=== PATIENT | female | born 1950 | race Caucasian/White ===

== ENCOUNTER → 2018-09-20 10:22 | Outpatient (CLI) | payer MEDICARE, OTHER, SELFPAY ==
[2017-04-05 17:03] VITALS: BMI 33.7
[2018-09-20 14:16] LABS: Absolute Lymphocyte Count 1.24 X10^3/ul (0.83-4.51); Absolute Neutrophil Count 5.5 X10^3/uL (2.0-7.7); Basophil# 0.03 X10^3/uL; Basophil% 0.4 % (0-1); Eosinophil# 0.25 X10^3/uL; Eosinophils% 3.3 % (0-5); Hematocrit 39.5 % (37-47); Hemoglobin 12.3 g/dl (12.0-15.0); Lymphocyte # 1.24 X10^3/ul (4.0); Lymphocyte % 16.1 % (19-41); Mean Corp Hgb Conc 31.1 g/gl (32-36); Mean Corpuscular Hgb 25.4 pg (27.0-32.0); Mean Corpuscular Volume 81.4 fL (81-99); Mean Platelet Vol. 10.1 fl (6.2-12.0); Monocyte# 0.55 X10^3/uL; Monocyte% 7.2 % (0-10); Neutrophil # 5.48 X10^3/uL (2.7-7.7); Neutrophil % 71.3 % (47-70); Platelet Count 209 K/mm3 (150-450); RBC Distribution Width CV 15.6 % (11.6-14.6); RBC Distribution Width SD 46.1 fl (35.1-43.9); Red Blood Count 4.85 M/mm3 (4.2-5.4); White Blood Count 7.7 K/mm3 (4.4-11.0)
[2018-09-20 14:17] LABS: POSITIVE COUNT NO; POSITIVE DIFFERENTIAL NO; POSITIVE MORPHOLOGY NO
[2018-09-20 14:37] LABS: AST(SGOT) 17 U/L (15-37); Alanine Aminotransfer ALT/SGPT 30 U/L (13-56); Albumin, Serum 3.5 g/dL (3.2-5.0); Alkaline Phosphatase 104 U/L (45-117); Anion Gap 13 (5-15); BUN 13 mg/dL (7-18); BUN/Creat Ratio 13.6 RATIO (10-20); Calcium,Total 8.8 mg/dL (8.5-10.1); Chloride 104 mmol/L (98-107); Cholesterol 162 mg/dL (200); Creatinine, Serum 0.96 mg/dL (0.55-1.02); EST Glomerular Filtration Rate 62 mL/min (>60); Est Glom Filt Rate - Afr Amer 75 mL/min (>60); Globulin 3.6 g/dL (2.2-4.2); Glucose 125 mg/dL (74-106); High Density Lipoprotein 41 mg/dL; Potassium 3.1 mmol/L (3.5-5.1); Protein, Total 7.1 g/dL (6.4-8.2); Sodium Level 140 mmol/L (136-145); Thyroid Stim Hormone (TSH) 1.29 uIU/mL (0.358-3.74); Triglycerides 165 mg/dL; Very Low Density Lipoprotein 33 mg/dL (5-40)
== END ==
PROVIDERS: Family Provider Family Medicine; PCP Family Medicine; Visit Provider Family Medicine
DX: I10 Essential (primary) hypertension (principal); E55.9 Vitamin D deficiency, unspecified; Z86.39 Personal history of other endocrine, nutritional and metabolic disease
CPT/HCPCS: 36415; 80053; 80061; 82306; 84443; 85025

== ENCOUNTER → 2018-10-24 11:53 | Outpatient (CLI) | payer MEDICARE, OTHER, SELFPAY ==
[2017-04-05 17:03] VITALS: BMI 33.7
[2018-10-24 13:18] LABS: Anion Gap 11 (5-15); BUN 16 mg/dL (7-18); BUN/Creat Ratio 17.1 RATIO (10-20); Calcium,Total 8.8 mg/dL (8.5-10.1); Chloride 105 mmol/L (98-107); Creatinine, Serum 0.93 mg/dL (0.55-1.02); EST Glomerular Filtration Rate 64 mL/min (>60); Est Glom Filt Rate - Afr Amer 77 mL/min (>60); Glucose 128 mg/dL (74-106); Potassium 3.7 mmol/L (3.5-5.1); Sodium Level 141 mmol/L (136-145)
== END ==
PROVIDERS: Family Provider Family Medicine; PCP Family Medicine; Referring Provider Family Medicine; Visit Provider Family Medicine
DX: I10 Essential (primary) hypertension (principal); R73.01 Impaired fasting glucose
CPT/HCPCS: 36415; 80048

== ENCOUNTER → 2018-11-27 | Outpatient (CLI) | payer MEDICARE, OTHER, SELFPAY ==
[2017-04-05 17:03] VITALS: BMI 33.7
[2018-11-27 14:04] LABS: EST Glomerular Filtration Rate 66 mL/min (>60); Est Glom Filt Rate - Afr Amer 80 mL/min (>60)
== END | disposition home or self-care (01) ==
LOC: MTLAB 11:52
PROVIDERS: Family Provider Family Medicine; PCP Family Medicine; Referring Provider Specialist; Visit Provider Specialist
DX: M25.531 Pain in right wrist (principal)
CPT/HCPCS: 36415; 82565

== ENCOUNTER → 2019-03-20 | Outpatient (CLI) | payer MEDICARE, OTHER, SELFPAY ==
[2019-03-20 15:32] LABS: Basophil# 0.03 X10^3/uL; Basophil% 0.4 % (0-1); Eosinophils% 2.5 % (0-5); Hematocrit 38.6 % (37-47); Hemoglobin 12.3 g/dL (12.0-15.0); Lymphocyte % 14.7 % (19-41); Mean Corp Hgb Conc 31.9 g/dL (32-36); Mean Corpuscular Hgb 25.8 pg (27.0-32.0); Mean Corpuscular Volume 81.1 fL (81-99); Monocyte# 0.51 X10^3/uL; Monocyte% 6.3 % (0-10); NRBC Flagged by Analyzer 0 % (0-5); Neutrophil # 5.98 X10^3/uL (2.7-7.7); Neutrophil % 73.4 % (47-70); Platelet Count 249 K/mm3 (150-450); RBC Distribution Width CV 15.4 % (11.6-14.6); RBC Distribution Width SD 44.9 fl (35.1-43.9); Red Blood Count 4.76 M/mm3 (4.2-5.4); White Blood Count 8.1 K/mm3 (4.4-11.0)
[2019-03-20 16:08] LABS: Erythrocyte Sedimentation Rate 31 mm/hr (0-30)
[2019-03-20 16:24] LABS: Rheumatoid Factor < 10.0 IU/mL (<15)
[2019-03-22 15:56] LABS: ANTINUCLEAR ANTIBODIES DIRECT Negative (Negative)
[2019-03-23 11:25] LABS: V-Zoster IgG (Immunity) 1674 index (Immune >165); V-Zoster Virus Acute IgM < 0.91 index (0.00-0.90)
== END | disposition home or self-care (01) ==
PROVIDERS: Family Provider Family Medicine; PCP Family Medicine; Referring Provider Family Medicine; Visit Provider Family Medicine
DX: R21 Rash and other nonspecific skin eruption (principal)
CPT/HCPCS: 85025; 85652; 86038; 86140; 86431; 86787

== ENCOUNTER → 2019-05-01 13:16 | Outpatient (CLI) | payer MEDICARE, OTHER, SELFPAY ==
--- NOTE | 2019-05-01 13:20 | ECHOCS_ITS ---
Reason For Study: Lupus Procedure This was a 2D Doppler, Color Flow transthoracic echocardiogram. The study was technically difficult. Contrast injection was performed. Exam performed in department. Left Ventricle Normal LV size. Moderate concentric left ventricular hypertrophy. Left ventricular systolic function is normal. The estimated ejection fraction is 65 %. Stage 1 diastolic dysfunction. No regional wall motion abnormalities noted. Right Ventricle Normal RV size. Normal systolic function. Atria The left atrium is not well visualized. The right atrium is not well visualized. Mitral Valve Mitral valve not well visualized. Tricuspid Valve The tricuspid valve is not well visualized. Aortic Valve The aortic valve is not well visualized. Pulmonic Valve The pulmonic valve is not well visualized. Great Vessels Normal aortic root. Pericardium/Pleural Epicardial fat. Medication 22 gauge I.V. with prn adaptor inserted into right arm. Diluted definity 4ml given slow IV push to enhance endocardial definition. MMode/2D Measurements & Calculations LVIDd: 4.3 cm IVSd: 1.3 cm LVIDs: 2.4 cm LVPWd: 1.4 cm LVAd ap4: 18.3 cm2 FS: 43.8 % EDV(MOD-sp4): 37.9 ml EDV(sp4-el): 39.9 ml LVAs ap4: 9.1 cm2 ESV(MOD-sp4): 12.6 ml ESV(sp4-el): 13.3 ml EF(MOD-sp4): 66.8 % EF(sp4-el): 66.5 % SV(MOD-sp4): 25.3 ml SV(sp4-el): 26.5 ml Time Measurements MV dec time: 0.18 sec Doppler Measurements & Calculations MV E max vin: 57.1 cm/sec Lat Peak E' Vin: 13.2 cm/sec Med Peak E' Vin: 14.1 cm/sec MV A max vin: 83.3 cm/sec E/E' lat: 4.3 E/E' med: 4.0 MV E/A: 0.69 MV V2 max: 96.3 cm/sec MV P1/2t max vin: 69.3 cm/sec Ao V2 max: 183.6 cm/sec MV max P.7 mmHg MV P1/2t: 82.4 msec Ao max P.5 mmHg MV V2 mean: 52.4 cm/sec MV mean P.3 mmHg MV dec slope: 246.5 cm/sec2 MV V2 VTI: 21.1 cm MVA(P1/2t): 2.7 cm2 LV V1 max: 116.9 cm/sec PA V2 max: 92.0 cm/sec LV V1 max P.5 mmHg Interpretation Summary Normal LV size. Moderate concentric left ventricular hypertrophy. Left ventricular systolic function is normal. The estimated ejection fraction is 65 %. Stage 1 diastolic dysfunction. Contrast injection was performed. Ordering Physician: Ruel Peoples Referring Physician: Ruel Peoples Performed By: Neto Rutherford RCS
== END ==
PROVIDERS: Family Provider Family Medicine; PCP Family Medicine; Referring Provider Family Medicine; Visit Provider Family Medicine
DX: M32.9 Systemic lupus erythematosus, unspecified (principal)
CPT/HCPCS: 93306; Q9957; A4216; C8929

== ENCOUNTER → 2019-05-29 11:19 | Outpatient (CLI) | payer MEDICARE, OTHER, SELFPAY ==
[2017-04-05 17:03] VITALS: BMI 33.7
--- NOTE | 2019-05-29 11:22 | RAD_ITS ---
STUDY: X-RAY - PELVIS AND LEFT HIP REASON FOR EXAM: Left hip/groin pain. TECHNIQUE: 2 views of the pelvis and hip. COMPARISON: None. FINDINGS: Normal visualized soft tissue structures. Normal bilateral iliac wings, sacroiliac joints and visualized sacrum. Normal bilateral superior and inferior pubic rami. There are mild degenerative changes of the pubic symphysis. Normal bilateral ischial tuberosities. Normal visualized femoral head. Normal acetabulum. There is mild joint space narrowing of the superior medial left hip joint. RAD/HIP, UNI W/ Pelvis 2-3 Views IMPRESSION: Mild arthrosis of the left hip. Electronically Signed: Teofilo Watts MD at 16:00 EDT Tel , Service support ,
== END ==
PROVIDERS: Family Provider Family Medicine; PCP Family Medicine; Referring Provider Family Medicine; Visit Provider Family Medicine
DX: M25.552 Pain in left hip (principal); R35.0 Frequency of micturition
CPT/HCPCS: 73502; 87086; 87088

== ENCOUNTER → 2019-05-29 14:05 | Outpatient (CLI) | payer MEDICARE, OTHER, SELFPAY | PROVIDERS: Family Provider Family Medicine; PCP Family Medicine; Referring Provider Family Medicine; Visit Provider Family Medicine | DX: R35.0 Frequency of micturition (principal) | CPT/HCPCS: 87086; 87088 ==

== ENCOUNTER → 2019-06-25 08:08 | Outpatient (CLI) | payer OTHER, MEDICARE, SELFPAY ==
--- NOTE | 2019-06-25 08:00 | RAD_ITS ---
PROCEDURE: Fluoroscopic guided left shoulder aspiration. DATE: June 25, 2019. INDICATION: Female, 69 years old. Left shoulder replacement. Continued pain. PHYSICIAN: Hung Graham M.D. ACCESS SITE: Left shoulder. NEEDLE: 22-gauge spinal needle. FLUOROSCOPY TIME (if supplied): (0:35) minutes/seconds FINDINGS: The risks, benefits, and alternatives to the procedure were explained to the patient. The specific risks of bleeding, infection, and neurovascular injury were detailed and accepted. Witnessed informed consent was obtained. A 22-gauge spinal needle was positioned under radiographic fluoroscopic localization. Approximately 2 cc of Omnipaque Isovue 300 instilled for localization purposes. There was no aspiration of fluid from the shoulder joint. The patient tolerated the procedure well without any immediate complications. RAD/Inj/Asp Jameson Jt Should/Hip/Knee IMPRESSION: 1. Successful fluoroscopic guided left shoulder aspiration without any fluid. Electronically Signed: Hung Graham, at 10:08 EST , Service support ,
== END ==
PROVIDERS: Family Provider Family Medicine; PCP Family Medicine; Referring Provider Specialist; Visit Provider Specialist
DX: M19.012 Primary osteoarthritis, left shoulder (principal); M25.512 Pain in left shoulder; Z96.612 Presence of left artificial shoulder joint
CPT/HCPCS: 20610; 77002; Q9967

== ENCOUNTER → 2019-09-24 09:05 | Outpatient (CLI) | payer MEDICARE, OTHER, SELFPAY ==
[2017-04-05 17:03] VITALS: BMI 33.7
[2019-09-24 12:01] LABS: Hepatitis B Surface Antigen Non-Reactive (Nonreactive); Hepatitis C Antibody Non-Reactive (Nonreactive)
[2019-09-25 12:03] LABS: AST(SGOT) 17 U/L (15-37); Alanine Aminotransfer ALT/SGPT 33 U/L (13-56); Albumin, Serum 3.4 g/dL (3.2-5.0); Alkaline Phosphatase 93 U/L (45-117); Anion Gap 9 (5-15); BUN 14 mg/dL (7-18); BUN/Creat Ratio 14.1 RATIO (10-20); Calcium,Total 8.9 mg/dL (8.5-10.1); Chloride 107 mmol/L (98-107); Cholesterol 183 mg/dL (200); EST Glomerular Filtration Rate 59 mL/min (>60); Est Glom Filt Rate - Afr Amer 71 mL/min (>60); Globulin 3.5 g/dL (2.2-4.2); Glucose 144 mg/dL (74-106); High Density Lipoprotein 42 mg/dL; Potassium 3.5 mmol/L (3.5-5.1); Protein, Total 6.9 g/dL (6.4-8.2); Sodium Level 140 mmol/L (136-145); Triglycerides 165 mg/dL; Very Low Density Lipoprotein 33 mg/dL (5-40)
[2019-09-25 12:21] LABS: Vitamin D,25 Hydroxy 52.2 ng/mL (29.95-100.01)
[2019-09-26 20:07] LABS: QNTFERON TB Mitogen Value > 10.00 IU/mL (.); QNTFERON TB Nil Value 0.03 IU/mL (.); QNTFERON TB1+ Ag Value 0.03 IU/mL (.); QNTFERON TB2+ Ag Value 0.02 IU/mL (.)
[2019-09-26 20:49] LABS: Hepatitis B Core AB IgM Negative (Negative); QNTIFERON TB Positive Criteria Negative (Negative)
== END ==
PROVIDERS: Family Provider Family Medicine; PCP Family Medicine; Referring Provider Family Medicine
DX: M06.9 Rheumatoid arthritis, unspecified (principal); I10 Essential (primary) hypertension; E55.9 Vitamin D deficiency, unspecified
CPT/HCPCS: 36415; 80053; 80061; 82306; 86480; 86705; 86803; 87340

== ENCOUNTER 2020-02-20 11:32 | Outpatient (RCR) | payer MEDICARE, OTHER, SELFPAY | END 2020-03-21 23:59 | LOC: DC 11:32 | PROVIDERS: PCP Family Medicine; Visit Provider Family Medicine | DX: Z71.3 Dietary counseling and surveillance (principal); E11.9 Type 2 diabetes mellitus without complications | CPT/HCPCS: G0108 ==

== ENCOUNTER → 2020-03-26 10:24 | Outpatient (CLI) | payer MEDICARE, OTHER, SELFPAY ==
[2017-04-05 17:03] VITALS: BMI 33.7
[2020-03-26 12:00] LABS: Erythrocyte Sedimentation Rate 26 mm/hr (0-30)
[2020-03-26 12:10] LABS: Hematocrit 43.3 % (37-47); Hemoglobin 13.3 g/dL (12.0-15.0); Mean Corp Hgb Conc 30.7 g/dL (32-36); Mean Corpuscular Hgb 25.9 pg (27.0-32.0); Mean Corpuscular Volume 84.4 fL (81-99); Mean Platelet Vol. 9.9 fl (6.2-12.0); Platelet Count 221 K/mm3 (150-450); RBC Distribution Width CV 16.8 % (11.6-14.6); RBC Distribution Width SD 50.4 fl (35.1-43.9); Red Blood Count 5.13 M/mm3 (4.2-5.4); White Blood Count 6.3 K/mm3 (4.4-11.0)
[2020-03-26 12:12] LABS: Vitamin D,25 Hydroxy 54.1 ng/mL
[2020-03-26 12:33] LABS: AST(SGOT) 17 U/L (15-37); Alanine Aminotransfer ALT/SGPT 37 U/L (13-56); Albumin, Serum 3.5 g/dL (3.2-5.0); Alkaline Phosphatase 85 U/L (45-117); Anion Gap 7 (5-15); BUN 17 mg/dL (7-18); BUN/Creat Ratio 17.5 RATIO (10-20); CRP 5.43 mg/L (0.0-3.0); Calcium,Total 8.9 mg/dL (8.5-10.1); Chloride 107 mmol/L (98-107); Creatinine, Serum 0.97 mg/dL (0.55-1.02); EST Glomerular Filtration Rate 60 mL/min (>60); Est Glom Filt Rate - Afr Amer 73 mL/min (>60); Globulin 3.4 g/dL (2.2-4.2); Glucose 135 mg/dL (74-106); Potassium 3.6 mmol/L (3.5-5.1); Protein, Total 6.9 g/dL (6.4-8.2); Sodium Level 138 mmol/L (136-145)
[2020-03-26 12:38] LABS: Thyroid Stim Hormone (TSH) 1.62 uIU/mL (0.358-3.74)
== END ==
PROVIDERS: PCP Family Medicine; Referring Provider Family Medicine; Visit Provider Family Medicine
DX: M06.9 Rheumatoid arthritis, unspecified (principal); E55.9 Vitamin D deficiency, unspecified; F32.9 Major depressive disorder, single episode, unspecified; F41.9 Anxiety disorder, unspecified; Z71.3 Dietary counseling and surveillance; E11.9 Type 2 diabetes mellitus without complications
CPT/HCPCS: 36415; 80053; 82306; 84443; 85027; 85652; 86140; G0108

== ENCOUNTER 2020-03-26 10:57 | Outpatient (RCR) | payer MEDICARE, OTHER, SELFPAY ==
[2017-04-05 17:03] VITALS: BMI 33.7
== END 2020-04-21 23:59 ==
LOC: DC 10:57
PROVIDERS: PCP Family Medicine; Visit Provider Family Medicine
DX: Z71.3 Dietary counseling and surveillance (principal); E11.9 Type 2 diabetes mellitus without complications
CPT/HCPCS: G0108

== ENCOUNTER 2020-05-13 16:35 | Outpatient (RCR) | payer MEDICARE, OTHER, SELFPAY ==
[2017-04-05 17:03] VITALS: BMI 33.7
== END 2020-05-21 23:59 ==
LOC: DC 16:35
PROVIDERS: PCP Family Medicine; Visit Provider Family Medicine
DX: Z71.3 Dietary counseling and surveillance (principal); E11.9 Type 2 diabetes mellitus without complications
CPT/HCPCS: 97802

== ENCOUNTER → 2020-05-22 17:02 | Outpatient (CLI) | payer MEDICARE, OTHER, SELFPAY ==
[2017-04-05 17:03] VITALS: BMI 33.7
--- NOTE | 2020-05-22 17:05 | RAD_ITS ---
STUDY: X-RAY LEFT FOOT, 3 TOE REASON FOR EXAM: Female, 69 years old. 2nd-4th left toe pain/bruising, hit them against a table leg yesterday TECHNIQUE: 3 view(s) of the toe were obtained. COMPARISON: None. FINDINGS: Normal visualized metatarsus. Normal metatarsophalangeal (M.T.P) joint. Normal interphalangeal joints. Normal phalanges and interphalangeal joints. The soft tissue structures are unremarkable. RAD/Toe(s) Min 2 Views IMPRESSION: Normal x-ray of the toe. Electronically Signed: Omar Nicholson MD at 9:18 EDT Tel , Service support ,
== END ==
PROVIDERS: PCP Family Medicine; Referring Provider Family Medicine; Visit Provider Family Medicine
DX: M79.675 Pain in left toe(s) (principal)
CPT/HCPCS: 73660

== ENCOUNTER 2020-06-19 13:55 | Outpatient (RCR) | payer MEDICARE, OTHER, SELFPAY ==
[2017-04-05 17:03] VITALS: BMI 33.7
== END 2020-06-21 23:59 ==
LOC: DC 13:55
PROVIDERS: PCP Family Medicine; Visit Provider Family Medicine
DX: Z71.3 Dietary counseling and surveillance (principal); E11.9 Type 2 diabetes mellitus without complications

== ENCOUNTER → 2020-07-07 11:50 | Outpatient (CLI) | payer MEDICARE, OTHER, SELFPAY ==
[2017-04-05 17:03] VITALS: BMI 33.7
== END ==
PROVIDERS: PCP Family Medicine; Visit Provider Family Medicine
DX: J06.9 Acute upper respiratory infection, unspecified (principal)
CPT/HCPCS: 87635; U0003

== ENCOUNTER 2020-07-22 14:57 | Outpatient (RCR) | payer MEDICARE, OTHER, SELFPAY ==
[2017-04-05 17:03] VITALS: BMI 33.7
== END 2020-07-22 23:59 | disposition home or self-care (01) ==
LOC: DC 14:57
PROVIDERS: PCP Family Medicine; Visit Provider Family Medicine
DX: Z71.3 Dietary counseling and surveillance (principal); E11.9 Type 2 diabetes mellitus without complications
CPT/HCPCS: 97803

== ENCOUNTER → 2020-08-11 12:42 | Outpatient (CLI) | payer MEDICARE, OTHER, SELFPAY ==
--- NOTE | 2020-08-11 12:46 | US_ITS ---
HISTORY: nodules COMPARISON: 05/05/2016, 10/11/2013 TECHNIQUE: Grayscale and color Doppler sonography of the thyroid gland. FINDINGS: RIGHT LOBE: 4.4 x 1.9 x 1.7 cm LEFT LOBE: 3.4 x 2.1 x 1.8 cm ISTHMUS: 3 mm Multiple bilateral thyroid cysts, largest on the right measuring 7 x 5 x 5 mm. Solid, heterogeneous left thyroid lobe nodule, predominantly hypoechoic to thyroid with smooth margins, wider than tall without calcifications measuring 1.1 x 0.9 x 0.9 cm, previously 1.0 x 0.8 x 1.0 cm on 10/11/2013 with measurements near the same level and orientation. US/Thyroid IMPRESSION: Small bilateral thyroid cysts. Left thyroid lobe nodule less than 1.5 cm shows stability for greater than 5 years. No further follow-up warranted per current guidelines. at 0705 Reported and signed by: Carol Philip MD Electronically Signed: Carol Philip MD at 7:05 EST Tel , Service support ,
== END ==
PROVIDERS: PCP Family Medicine; Referring Provider Family Medicine; Visit Provider Family Medicine
DX: E04.1 Nontoxic single thyroid nodule (principal)
CPT/HCPCS: 76536

== ENCOUNTER → 2020-08-26 14:40 | Outpatient (CLI) | payer OTHER, SELFPAY ==
[2017-04-05 17:03] VITALS: BMI 33.7
[2020-08-26 18:04] LABS: Hematocrit 42.1 % (37-47); Hemoglobin 13.2 g/dL (12.0-15.0); Mean Corp Hgb Conc 31.4 g/dL (32-36); Mean Corpuscular Hgb 26.3 pg (27.0-32.0); Mean Platelet Vol. 11.4 fl (6.2-12.0); Platelet Count 219 K/mm3 (150-450); RBC Distribution Width CV 14.9 % (11.6-14.6); RBC Distribution Width SD 45.4 fl (35.1-43.9); Red Blood Count 5.01 M/mm3 (4.2-5.4); White Blood Count 8.1 K/mm3 (4.4-11.0)
[2020-08-26 18:05] LABS: Erythrocyte Sedimentation Rate 28 mm/hr (0-30)
[2020-08-26 18:34] LABS: AST(SGOT) 24 U/L (15-37); Alanine Aminotransfer ALT/SGPT 35 U/L (13-56); Albumin, Serum 3.4 g/dL (3.2-5.0); Alkaline Phosphatase 95 U/L (45-117); Anion Gap 7 (5-15); BUN 17 mg/dL (7-18); BUN/Creat Ratio 17.2 RATIO (10-20); Calcium,Total 8.5 mg/dL (8.5-10.1); Chloride 107 mmol/L (98-107); Creatinine, Serum 0.99 mg/dL (0.55-1.02); EST Glomerular Filtration Rate 59 mL/min (>60); Est Glom Filt Rate - Afr Amer 72 mL/min (>60); Globulin 3.5 g/dL (2.2-4.2); Glucose 168 mg/dL (74-106); Potassium 3.1 mmol/L (3.5-5.1); Protein, Total 6.9 g/dL (6.4-8.2); Sodium Level 141 mmol/L (136-145)
== END ==
PROVIDERS: PCP Family Medicine; Referring Provider Family Medicine
DX: M06.9 Rheumatoid arthritis, unspecified (principal)
CPT/HCPCS: 36415; 80053; 85027; 85652; 86140

== ENCOUNTER → 2020-09-08 12:33 | Outpatient (CLI) | payer MEDICARE, SELFPAY ==
[2017-04-05 17:03] VITALS: BMI 33.7
[2020-09-08 15:48] LABS: Absolute Lymphocyte Count 1.49 X10^3/uL (0.83-4.51); Basophil# 0.07 X10^3/uL; Basophil% 0.7 % (0-1); Eosinophils% 1.9 % (0-5); Hematocrit 44.1 % (37-47); Hemoglobin 13.5 g/dL (12.0-15.0); Lymphocyte # 1.49 X10^3/ul (4.0); Mean Corp Hgb Conc 30.6 g/dL (32-36); Mean Corpuscular Hgb 25.8 pg (27.0-32.0); Mean Corpuscular Volume 84.2 fL (81-99); Mean Platelet Vol. 10.8 fl (6.2-12.0); Monocyte% 6.6 % (0-10); NRBC Flagged by Analyzer 0 % (0-5); Neutrophil # 8.04 X10^3/uL (2.7-7.7); Neutrophil % 75.8 % (47-70); Platelet Count 235 K/mm3 (150-450); RBC Distribution Width SD 45.2 fl (35.1-43.9); Red Blood Count 5.24 M/mm3 (4.2-5.4); White Blood Count 10.6 K/mm3 (4.4-11.0)
[2020-09-08 15:58] LABS: International Normalized Ratio 1.1; Prothrombin Time (Protime)PT. 13.3 SECONDS (11.7-14.9)
[2020-09-08 15:59] LABS: Partial Thromboplast Time 22.9 Seconds (24.1-36.2)
[2020-09-08 16:18] LABS: Anion Gap 10 (5-15); BUN 17 mg/dL (7-18); BUN/Creat Ratio 17.2 RATIO (10-20); Chloride 104 mmol/L (98-107); Creatinine, Serum 0.99 mg/dL (0.55-1.02); EST Glomerular Filtration Rate 59 mL/min (>60); Est Glom Filt Rate - Afr Amer 72 mL/min (>60); Glucose 152 mg/dL (74-106); Potassium 3.4 mmol/L (3.5-5.1); Sodium Level 136 mmol/L (136-145)
== END ==
PROVIDERS: PCP Family Medicine; Referring Provider Family Medicine; Visit Provider Family Medicine
DX: Z01.818 Encounter for other preprocedural examination (principal)
CPT/HCPCS: 36415; 80048; 85025; 85610; 85730; 87635; U0003

== ENCOUNTER → 2020-09-29 10:31 | Outpatient (CLI) | payer MEDICARE, OTHER, SELFPAY ==
[2017-04-05 17:03] VITALS: BMI 33.7
== END ==
PROVIDERS: PCP Family Medicine; Visit Provider Family Medicine
DX: Z01.818 Encounter for other preprocedural examination (principal); Z20.822 Contact with and (suspected) exposure to COVID-19
CPT/HCPCS: 87635; U0005; U0003

== ENCOUNTER 2020-10-30 13:10 | Outpatient (RCR) | payer MEDICARE, OTHER, SELFPAY ==
[2017-04-05 17:03] VITALS: BMI 33.7
[2020-10-30] MEDS: COVID-19 VACC, MRNA(PFIZER)/PF 30 MCG/0.3 ML SYRINGE IM (11:27)
[2020-11-20] MEDS: COVID-19 VACC, MRNA(PFIZER)/PF 30 MCG/0.3 ML SYRINGE IM (10:46)
== END 2021-01-27 23:59 ==
LOC: IMMUN 13:10
PROVIDERS: PCP Family Medicine; Referring Provider Family Medicine; Visit Provider Family Medicine
DX: Z23 Encounter for immunization (principal)
CPT/HCPCS: 0001A; 0002A; 91300

== ENCOUNTER → 2020-11-20 15:13 | Outpatient (CLI) | payer MEDICARE, OTHER, SELFPAY ==
[2017-04-05 17:03] VITALS: BMI 33.7
[2020-11-20 17:36] LABS: Absolute Lymphocyte Count 1.52 X10^3/uL (0.83-4.51); Absolute Neutrophil Count 8.8 X10^3/uL (2.0-7.7); Basophil# 0.08 X10^3/uL; Basophil% 0.7 % (0-1); Eosinophil# 0.33 X10^3/uL; Eosinophils% 2.8 % (0-5); Hematocrit 44.4 % (37-47); Hemoglobin 13.6 g/dL (12.0-15.0); Lymphocyte # 1.52 X10^3/ul (4.0); Lymphocyte % 12.8 % (19-41); Mean Corp Hgb Conc 30.6 g/dL (32-36); Mean Corpuscular Hgb 25.9 pg (27.0-32.0); Mean Corpuscular Volume 84.4 fL (81-99); Mean Platelet Vol. 10.3 fl (6.2-12.0); Monocyte# 0.91 X10^3/uL; Monocyte% 7.7 % (0-10); NRBC Flagged by Analyzer 0 % (0-5); Neutrophil # 8.83 X10^3/uL (2.7-7.7); Neutrophil % 74.6 % (47-70); Platelet Count 275 K/mm3 (150-450); RBC Distribution Width SD 49.2 fl (35.1-43.9); Red Blood Count 5.26 M/mm3 (4.2-5.4); White Blood Count 11.8 K/mm3 (4.4-11.0)
[2020-11-20 18:00] LABS: Erythrocyte Sedimentation Rate 46 mm/hr (0-30)
[2020-11-20 20:29] LABS: AST(SGOT) 21 U/L (15-37); Alanine Aminotransfer ALT/SGPT 31 U/L (13-56); Albumin, Serum 3.6 g/dL (3.2-5.0); Alkaline Phosphatase 98 U/L (45-117); Anion Gap 6 (5-15); BUN 15 mg/dL (7-18); BUN/Creat Ratio 16.8 RATIO (10-20); Calcium,Total 8.8 mg/dL (8.5-10.1); Chloride 108 mmol/L (98-107); Creatinine, Serum 0.89 mg/dL (0.55-1.02); EST Glomerular Filtration Rate 67 mL/min (>60); Est Glom Filt Rate - Afr Amer 81 mL/min (>60); Globulin 3.7 g/dL (2.2-4.2); Glucose 100 mg/dL (74-106); Potassium 3.6 mmol/L (3.5-5.1); Protein, Total 7.3 g/dL (6.4-8.2); Sodium Level 140 mmol/L (136-145)
== END ==
PROVIDERS: PCP Family Medicine; Referring Provider Family Medicine
DX: M06.9 Rheumatoid arthritis, unspecified (principal)
CPT/HCPCS: 36415; 80053; 85025; 85652; 86140

== ENCOUNTER → 2020-12-16 16:04 | Outpatient (CLI) | payer MEDICARE, OTHER, SELFPAY ==
[2017-04-05 17:03] VITALS: BMI 33.7
[2020-12-16 18:12] LABS: Erythrocyte Sedimentation Rate 26 mm/hr (0-30)
[2020-12-16 18:26] LABS: Anion Gap 5 (5-15); BUN 12 mg/dL (7-18); BUN/Creat Ratio 12.8 RATIO (10-20); Calcium,Total 8.9 mg/dL (8.5-10.1); Chloride 105 mmol/L (98-107); Creatinine, Serum 0.94 mg/dL (0.55-1.02); EST Glomerular Filtration Rate 63 mL/min (>60); Est Glom Filt Rate - Afr Amer 76 mL/min (>60); Glucose 134 mg/dL (74-106); Potassium 3.2 mmol/L (3.5-5.1); Sodium Level 137 mmol/L (136-145); Thyroid Stim Hormone (TSH) 0.85 uIU/mL (0.358-3.74)
== END ==
PROVIDERS: PCP Family Medicine; Referring Provider Family Medicine; Visit Provider Family Medicine
DX: E11.65 Type 2 diabetes mellitus with hyperglycemia (principal); M35.00 Sjogren syndrome, unspecified; R42 Dizziness and giddiness
CPT/HCPCS: 36415; 80048; 84443; 85652; 86140

== ENCOUNTER → 2021-01-01 15:07 | Outpatient (CLI) | payer MEDICARE, OTHER, SELFPAY ==
[2021-01-01 18:13] LABS: Anion Gap 7 (5-15); BUN 17 mg/dL (7-18); Calcium,Total 9.4 mg/dL (8.5-10.1); Chloride 105 mmol/L (98-107); Creatinine, Serum 0.89 mg/dL (0.55-1.02); EST Glomerular Filtration Rate 67 mL/min (>60); Est Glom Filt Rate - Afr Amer 80 mL/min (>60); Glucose 174 mg/dL (74-106); Potassium 3.6 mmol/L (3.5-5.1); Sodium Level 139 mmol/L (136-145)
== END ==
PROVIDERS: PCP Family Medicine; Referring Provider Family Medicine; Visit Provider Family Medicine
DX: R42 Dizziness and giddiness (principal)
CPT/HCPCS: 36415; 80048

== ENCOUNTER → 2021-02-02 10:55 | Outpatient (CLI) | payer MEDICARE, OTHER, SELFPAY ==
[2017-04-05 17:03] VITALS: BMI 33.7
--- NOTE | 2021-02-02 11:00 | RAD_ITS ---
STUDY: X-RAY - CERVICAL SPINE REASON FOR EXAM: Female, 70 years old. paresthesia TECHNIQUE: 5 view(s) of the cervical spine were obtained. COMPARISON: None FINDINGS: Normal anterior atlantoaxial articulation. Normal odontoid process. Normal cervical lordosis. There is multi-level endplate spondylosis. Loss of disc height at C5-C6 and C6-C7. Bilateral facet arthropathy in the lower cervical levels with only slight foraminal narrowing at C5-C6 and C6-C7. There are atherosclerotic vascular calcifications of the carotid arteries. RAD/Cerv Spine 4 or 5 Views IMPRESSION: Degenerative disc disease and facet arthropathy, as above. Carotid atherosclerosis. Electronically Signed: Geraldo Jerome MD (Brooks) at 7:53 EDT , Service support ,
--- NOTE | 2021-02-02 11:00 | RAD_ITS ---
STUDY: X-RAY - PELVIS AND RIGHT HIP REASON FOR EXAM: Female, 70 years old. HIP PAIN TECHNIQUE: 3 views of the pelvis and hip. COMPARISON: None. FINDINGS: There is a non-specific bowel gas pattern. Normal visualized soft tissue structures. Normal bilateral iliac wings, sacroiliac joints and visualized sacrum. Normal bilateral superior and inferior pubic rami. Normal pubic symphysis. Normal bilateral ischial tuberosities. Normal visualized femoral head. Normal acetabulum. Normal hip joint. RAD/HIP, UNI W/ Pelvis 2-3 Views IMPRESSION: Normal x-ray examination of the pelvis and hip. Electronically Signed: Geraldo Jerome MD (Brooks) at 7:49 EDT , Service support ,
--- NOTE | 2021-02-02 11:00 | RAD_ITS ---
STUDY: X-RAY - LUMBAR SPINE REASON FOR EXAM: Female, 70 years old. HIP PAIN TECHNIQUE: 5 view(s) of the lumbar spine were obtained. COMPARISON: None FINDINGS: Normal lumbar lordosis. Slight levoscoliosis There is a normal alignment of the vertebrae. There is multilevel endplate spondylosis of the lumbar vertebrae. There is multi-level degenerative disc disease with multi-level disc space narrowing, most severe at L2-L3. Multilevel facet arthropathy particularly at L3-L4, L4-L5 and L5-S1. There is no demonstrated spondylolysis of the pars interarticulares. No compression fracture. There is atherosclerotic calcification of the abdominal aorta without a demonstrated aneurysm. RAD/L/S Spine Min 4 Views IMPRESSION: 1. Degenerative disc disease and facet arthropathy. Electronically Signed: Geraldo Jerome MD ([place]) at 7:50 EDT , Service support ,
== END ==
PROVIDERS: PCP Family Medicine; Referring Provider Family Medicine; Visit Provider Family Medicine
DX: M25.551 Pain in right hip (principal); R20.2 Paresthesia of skin
CPT/HCPCS: 72050; 72110; 73502

== ENCOUNTER → 2021-02-03 12:55 | Outpatient (CLI) | payer MEDICARE, OTHER, SELFPAY ==
[2017-04-05 17:03] VITALS: BMI 33.7
--- NOTE | 2021-02-03 12:57 | ART_ITS ---
Reason For Study: Pain in left foot Procedure A bilateral lower extremity continuous wave Doppler with analog waveform analysis,segmental pressures,and ankle brachial indexes without exercise. Left Segmental Pressures Left brachial= 141mmHg. Left posterior tibial artery = 142mmHg. Left dorsalis pedis artery = 145mmHg. Left digit = 82 mmHg. The left dorsalis pedis waveforms are triphasic. The left posterior tibial artery waveforms are triphasic. Right Segmental Pressures Right brachial= 137mmHg. Right posterior tibial artery = 151mmHg. Right dorsalis pedis artery = 142mmHg. Right digit = 74 mmHg. The right dorsalis pedis waveforms are triphasic. The right posterior tibial artery waveforms are triphasic. Indices The right ankle brachial index by the dorsalis pedis is 1.01. The right ankle brachial index by the posterior tibial artery is 1.07. The right digital-brachial index is 0.52. The left ankle brachial index by the dorsalis pedis is 1.03. The left ankle brachial index by the posterior tibial artery is 1.01. The left digital-brachial index is 0.58. VL/Lower Ext Art Exam w/o Exercis Interpretation Summary Triphasic Doppler waveforms are noted at ankle level bilaterally. Pulse-volume recordings appear satisfactory at all levels bilaterally, including low-thigh, calf, ankle, and d igital levels. Resting ankle-brachial indices are normal bilaterally. Digital-brachial indices are mildly diminished bilaterally. Arterial flow appears normal at ankle level bilaterally. There is evidence of m ild, distal, small- vessel arterial occlusive disease at digital level bilaterally. Ordering Physician: Miguel Garcia Referring Physician: Perry Peoples MD Performed By: Mariama Daugherty RVT
== END ==
PROVIDERS: PCP Family Medicine; Referring Provider Podiatrist Foot & Ankle Surgery; Visit Provider Podiatrist Foot & Ankle Surgery
DX: Z01.818 Encounter for other preprocedural examination (principal); M79.672 Pain in left foot; I73.9 Peripheral vascular disease, unspecified
CPT/HCPCS: 93923

== ENCOUNTER → 2021-02-13 09:54 | Outpatient (CLI) | payer MEDICARE, OTHER, SELFPAY ==
[2017-04-05 17:03] VITALS: BMI 33.7
[2021-02-13 12:30] LABS: Erythrocyte Sedimentation Rate 28 mm/hr (0-30)
[2021-02-13 12:33] LABS: Hematocrit 43.5 % (37-47); Hemoglobin 13.6 g/dL (12.0-15.0); Mean Corp Hgb Conc 31.3 g/dL (32-36); Mean Platelet Vol. 10.6 fl (6.2-12.0); Platelet Count 225 K/mm3 (150-450); RBC Distribution Width CV 15.5 % (11.6-14.6); RBC Distribution Width SD 46.7 fl (35.1-43.9); Red Blood Count 5.24 M/mm3 (4.2-5.4); White Blood Count 7.2 K/mm3 (4.4-11.0)
[2021-02-13 12:56] LABS: AST(SGOT) 29 U/L (15-37); Alanine Aminotransfer ALT/SGPT 38 U/L (13-56); Albumin, Serum 3.6 g/dL (3.2-5.0); Alkaline Phosphatase 90 U/L (45-117); Anion Gap 10 (5-15); BUN 17 mg/dL (7-18); BUN/Creat Ratio 17.7 RATIO (10-20); Calcium,Total 8.6 mg/dL (8.5-10.1); Chloride 106 mmol/L (98-107); Creatinine, Serum 0.96 mg/dL (0.55-1.02); EST Glomerular Filtration Rate 61 mL/min (>60); Est Glom Filt Rate - Afr Amer 74 mL/min (>60); Globulin 3.6 g/dL (2.2-4.2); Glucose 166 mg/dL (74-106); Potassium 3.7 mmol/L (3.5-5.1); Protein, Total 7.2 g/dL (6.4-8.2); Sodium Level 138 mmol/L (136-145)
== END ==
PROVIDERS: PCP Family Medicine; Referring Provider Family Medicine
DX: M06.9 Rheumatoid arthritis, unspecified (principal)
CPT/HCPCS: 36415; 80053; 85027; 85652; 86140

== ENCOUNTER → 2021-03-10 13:48 | Outpatient (CLI) | payer MEDICARE, OTHER, SELFPAY ==
[2021-03-10 15:30] LABS: Hematocrit 44.7 % (37-47); Hemoglobin 13.5 g/dL (12.0-15.0); Mean Corp Hgb Conc 30.2 g/dL (32-36); Mean Corpuscular Hgb 25.3 pg (27.0-32.0); Mean Corpuscular Volume 83.7 fL (81-99); Mean Platelet Vol. 9.6 fl (6.2-12.0); Platelet Count 321 K/mm3 (150-450); RBC Distribution Width CV 15.6 % (11.6-14.6); RBC Distribution Width SD 46.3 fl (35.1-43.9); Red Blood Count 5.34 M/mm3 (4.2-5.4); White Blood Count 7.5 K/mm3 (4.4-11.0)
[2021-03-10 15:43] LABS: International Normalized Ratio 1.2; Partial Thromboplast Time 26.9 Seconds (24.1-36.2); Prothrombin Time (Protime)PT. 14.1 SECONDS (11.7-14.9)
[2021-03-10 15:58] LABS: Erythrocyte Sedimentation Rate 24 mm/hr (0-30)
== END ==
PROVIDERS: PCP Family Medicine; Visit Provider Family Medicine
DX: Z01.818 Encounter for other preprocedural examination (principal); M35.00 Sjogren syndrome, unspecified
CPT/HCPCS: 36415; 85027; 85610; 85652; 85730

== ENCOUNTER → 2021-03-17 | Outpatient (CLI) | payer MEDICARE, OTHER, SELFPAY ==
[2017-04-05 17:03] VITALS: BMI 33.7
--- NOTE | 2021-03-17 11:45 | BON_PTH ---
PATIENT: REE WYLIE LOC: [facility] U#:[id number] AGE/SX: 70/F ROOM: RE03/17/[address]: Dr. Miguel Garcia DPM : 1950 BED: DIS: 03/17/2021 SPEC #: [id number] RECD: 03/17/21 15:01 STATUS: [facility] REQ #: [id number] ANY: 03/17/21 11:[address]: Miguel Garcia DEPT: SURGICAL PATHOLOGY RECD BY: Karlie Stokes ENTERED: 03/18/21 08:34 SP TYPE: Bone OTHR DR: Dr. Perry Peoples MD [facility] Tissues: Toe, NOS Procedures: Decalcification bone/plaque Surgery Specimen Level IV HEADER OPERATION: Left foot second digit amputation, desyndactylization of second and third digit PRE-OP DIAGNOSIS: Left foot hammertoe second digit TISSUE SUBMITTED: Second digit left foot MICROSCOPIC DIAGNOSIS Second digit of left foot, amputation: Skin with hyperkeratosis. Bone with focal reparative and reactive change. See comment. AM:shaylee 03/20/2021 COMMENT The findings are consistent with hammertoe deformity. Clinical correlation is suggested. MICROSCOPIC DESCRIPTION Slides are reviewed. GROSS DESCRIPTION Received is one container labeled with the patient's name and not further designated. The specimen consists of a deformed portion of toe measuring 4 x 1 x 1 cm. Also present in the container is a detached piece of bone measuring 3 x 1.2 x 1 cm. Also present in the container are detached pieces of soft tissue and skin measuring 2.5 x 1 x 0.2 cm. The portion of toe also shows nail which appears unremarkable. [employer] sections are submitted in three cassettes as follows: 1 - skin and soft tissue, 2 & 3 - bone after decalcification. / ANDREW:shaylee 03/18/21 TC:5 CPT: 77043, 57499
== END | disposition home or self-care (01) ==
PROVIDERS: PCP Family Medicine; Referring Provider Podiatrist Foot & Ankle Surgery; Visit Provider Podiatrist Foot & Ankle Surgery
DX: M20.42 Other hammer toe(s) (acquired), left foot (principal)
CPT/HCPCS: 88305; 88311

== ENCOUNTER → 2021-05-11 12:24 | Outpatient (CLI) | payer MEDICARE, OTHER, SELFPAY ==
[2021-05-11 14:58] LABS: Hematocrit 44.1 % (37-47); Hemoglobin 13.8 g/dL (12.0-15.0); Mean Corp Hgb Conc 31.3 g/dL (32-36); Mean Corpuscular Hgb 25.7 pg (27.0-32.0); Mean Corpuscular Volume 82.3 fL (81-99); Mean Platelet Vol. 10.5 fl (6.2-12.0); Platelet Count 263 K/mm3 (150-450); RBC Distribution Width SD 47.7 fl (35.1-43.9); Red Blood Count 5.36 M/mm3 (4.2-5.4); White Blood Count 9.2 K/mm3 (4.4-11.0)
== END ==
PROVIDERS: PCP Family Medicine; Visit Provider Family Medicine
DX: Z01.818 Encounter for other preprocedural examination (principal)
CPT/HCPCS: 36415; 85027

== ENCOUNTER → 2021-05-13 | Outpatient (CLI) | payer MEDICARE, SELFPAY ==
--- NOTE | 2021-05-13 09:00 | AMP_PTH ---
PATIENT: REE WYLIE LOC: [facility] U#:[id number] AGE/SX: 70/F ROOM: RE05/13/[address]: Dr. Andrew Aguillon DO : 1950 BED: DIS: 05/13/2021 SPEC #: [id number] RECD: 05/13/21 15:08 STATUS: BROOKE MAGDALENE #: [id number] ANY: 05/13/21 09:[address]: Andrew Aguillon DEPT: SURGICAL PATHOLOGY RECD BY: Vincent Dejesus ENTERED: 05/14/21 07:14 SP TYPE: Amputation OTHR DR: Dr. Perry Peoples MD [facility] Tissues: Toe, NOS Procedures: Decalcification bone/plaque Surgery Specimen Level IV HEADER OPERATION: Right foot second digit amputation; right foot desyndactylization second and third digit; hammertoe correction right third digit PRE-OP DIAGNOSIS: Right foot third digit hammertoe, fused toes second and third digits TISSUE SUBMITTED: Second digit right foot MICROSCOPIC DIAGNOSIS Second digit of right foot, amputation: Bony abnormality consistent with hammertoe deformity. Skin with hyperkeratosis. AM:shaylee 05/20/2021 MICROSCOPIC DESCRIPTION Slides are reviewed. GROSS DESCRIPTION Received is one container labeled with the patient's name and not further designated. The specimen consists of a portion of toe measuring 4.5 x 1.5 x 1.2 cm. The nail appears to be atrophic. A raised, reinoso lesion is noted on the surface measuring 0.5 cm in greatest dimension. It is 1.5 cm away from the cutaneous resection margin. The bone underlying the tissue is slightly raised consistent with hammertoe. Claims Consultant sections are submitted as follows: 1 - raised reinoso skin lesion, 2 - bone after decalcification. / ANDREW:shaylee 05/14/21 TC:5 CPT: 69888, 45493
== END | disposition home or self-care (01) ==
LOC: LABSPEC 15:34
PROVIDERS: PCP Family Medicine; Referring Provider Student in an Organized Health Care Education/Training Program; Visit Provider Student in an Organized Health Care Education/Training Program
DX: M20.41 Other hammer toe(s) (acquired), right foot (principal); Q70.21 Fused toes, right foot
CPT/HCPCS: 88305; 88311

== ENCOUNTER → 2021-06-15 12:00 | Outpatient (CLI) | payer MEDICARE, SELFPAY ==
[2021-06-15 15:28] LABS: Absolute Lymphocyte Count 1.45 X10^3/uL (0.83-4.51); Absolute Neutrophil Count 5.2 X10^3/uL (2.0-7.7); Basophil# 0.04 X10^3/uL; Basophil% 0.5 % (0-1); Eosinophil# 0.27 X10^3/uL; Eosinophils% 3.4 % (0-5); Hemoglobin 12.9 g/dL (12.0-15.0); Lymphocyte # 1.45 X10^3/ul (0.83-4.51); Lymphocyte % 18.5 % (19-41); Mean Corpuscular Hgb 25.4 pg (27.0-32.0); Mean Corpuscular Volume 84.8 fL (81-99); Mean Platelet Vol. 10.4 fl (6.2-12.0); Monocyte# 0.74 X10^3/uL; Monocyte% 9.4 % (0-10); NRBC Flagged by Analyzer 0 % (0-5); Neutrophil # 5.23 X10^3/uL (2.7-7.7); Neutrophil % 66.7 % (47-70); Platelet Count 275 K/mm3 (150-450); RBC Distribution Width CV 15.6 % (11.6-14.6); RBC Distribution Width SD 47.8 fl (35.1-43.9); Red Blood Count 5.07 M/mm3 (4.2-5.4); White Blood Count 7.9 K/mm3 (4.4-11.0)
== END ==
PROVIDERS: PCP Family Medicine; Referring Provider Family Medicine; Visit Provider Family Medicine
DX: L27.0 Generalized skin eruption due to drugs and medicaments taken internally (principal)
CPT/HCPCS: 36415; 85025

== ENCOUNTER → 2021-07-13 14:06 | Outpatient (CLI) | payer MEDICARE, SELFPAY ==
[2021-07-13 14:12] LABS: Bacteria 0 SEEN /hpf (None Seen); Mucous, Urine 0 SEEN /hpf (<or=2+); Red Blood Cells-Urine 0 SEEN /hpf (0-5)
[2021-07-13 18:13] LABS: Color, Urine Yellow (Yellow); Glucose, Dipstick Normal (Normal); Ketone-Dipstick Negative (Negative); Leukocyte Esterase-Dipstick 500 /ul (Negative); Nitrite-Dipstick Negative (Negative); Occult Blood-Urine Negative /ul (Negative); Protein-Dipstick Negative (Negative); Specific Gravity, Urine 1.015 (1.002-1.030); Urine Bilirubin Dipstick Negative (Negative); Urine Clarity Sl. Cloudy (Clear); Urine Urobilinogen Normal (Normal)
[2021-07-13 18:15] LABS: Absolute Lymphocyte Count 2.72 X10^3/uL (0.83-4.51); Absolute Neutrophil Count 6.4 X10^3/uL (2.0-7.7); Basophil# 0.05 X10^3/uL; Basophil% 0.5 % (0-1); Eosinophil# 0.11 X10^3/uL; Eosinophils% 1.1 % (0-5); Hematocrit 42.4 % (37-47); Hemoglobin 12.9 g/dL (12.0-15.0); Lymphocyte # 2.72 X10^3/ul (0.83-4.51); Mean Corp Hgb Conc 30.4 g/dL (32-36); Mean Corpuscular Hgb 25.3 pg (27.0-32.0); Mean Corpuscular Volume 83.3 fL (81-99); Mean Platelet Vol. 10.4 fl (6.2-12.0); Monocyte# 1.06 X10^3/uL; Monocyte% 10.1 % (0-10); NRBC Flagged by Analyzer 0 % (0-5); Neutrophil # 6.37 X10^3/uL (2.7-7.7); Platelet Count 284 K/mm3 (150-450); RBC Distribution Width CV 15.3 % (11.6-14.6); RBC Distribution Width SD 46.3 fl (35.1-43.9); Red Blood Count 5.09 M/mm3 (4.2-5.4); White Blood Count 10.5 K/mm3 (4.4-11.0)
[2021-07-13 18:22] LABS: White Blood Cells 5-10 SEEN /hpf (0-5)
[2021-07-13 18:23] LABS: Renal Epithelial Cells 0-5 SEEN /hpf (0-5); Squamous Epithelial Cells - UA 0-5 SEEN /hpf (5-10)
[2021-07-13 18:50] LABS: ALB/GLOB Ratio 0.8 RATIO (0.9-2.4); AST(SGOT) 16 U/L (15-37); Alanine Aminotransfer ALT/SGPT 30 U/L (13-56); Albumin, Serum 3.2 g/dL (3.2-5.0); Alkaline Phosphatase 90 U/L (45-117); Anion Gap 8 (5-15); BUN 17 mg/dL (7-18); BUN/Creat Ratio 20.6 RATIO (10-20); Chloride 104 mmol/L (98-107); Creatinine, Serum 0.82 mg/dL (0.55-1.02); EST Glomerular Filtration Rate 73 mL/min (>60); Est Glom Filt Rate - Afr Amer 88 mL/min (>60); Glucose 167 mg/dL (74-106); Potassium 3.3 mmol/L (3.5-5.1); Protein, Total 7.2 g/dL (6.4-8.2); Sodium Level 137 mmol/L (136-145)
[2021-07-13 19:08] LABS: Erythrocyte Sedimentation Rate 33 mm/hr (0-30)
[2021-07-14 09:10] LABS: Hepatitis B Surface Antibody Non-Reactive; Hepatitis C Antibody Non-Reactive (Nonreactive)
[2021-07-15 13:47] LABS: Hepatitis A AB, Total Positive (Negative)
[2021-07-15 13:56] LABS: ANTINUCLEAR ANTIBODIES DIRECT Negative (Negative)
== END ==
PROVIDERS: PCP Family Medicine; Visit Provider Dermatology
DX: M31.0 Hypersensitivity angiitis (principal)
CPT/HCPCS: 36415; 80053; 81001; 85025; 85652; 86038; 86060; 86706; 86708; 86803

== ENCOUNTER → 2021-07-29 13:58 | Outpatient (CLI) | payer MEDICARE, OTHER, SELFPAY ==
[2021-07-29 17:42] LABS: Erythrocyte Sedimentation Rate 27 mm/hr (0-30)
[2021-07-29 18:05] LABS: CRP 6.15 mg/L (0.0-3.0); Cholesterol 166 mg/dL (200); High Density Lipoprotein 69 mg/dL; Triglycerides 177 mg/dL; Very Low Density Lipoprotein 35 mg/dL (5-40)
[2021-07-31 16:20] LABS: Hepatitis A IgM Antibody Negative (Negative)
== END ==
PROVIDERS: Dermatology; PCP Family Medicine; Referring Provider Family Medicine; Visit Provider Family Medicine
DX: M31.0 Hypersensitivity angiitis (principal); M35.00 Sjogren syndrome, unspecified; E11.65 Type 2 diabetes mellitus with hyperglycemia
CPT/HCPCS: 36415; 80061; 85652; 86140; 86709

== ENCOUNTER → 2021-08-20 | Outpatient (CLI) | payer MEDICARE, OTHER, SELFPAY | END | disposition home or self-care (01) | PROVIDERS: PCP Family Medicine; Visit Provider Family Medicine | DX: R05.9 Cough, unspecified (principal) | CPT/HCPCS: 87633; 87635; U0003; U0005 ==

== ENCOUNTER 2021-09-14 16:17 | Outpatient (CLI) | payer MEDICARE, OTHER, SELFPAY ==
--- NOTE | 2021-09-14 16:25 | RAD_ITS ---
STUDY: X-RAY - LEFT WRIST REASON FOR EXAM: Female, 71 years old. Pain. TECHNIQUE: 3 view(s) of the wrist were obtained. COMPARISON: None. FINDINGS: Osteopenia. Moderate arthrosis of the radiocarpal joint. Mild arthrosis of the radioulnar joint. Mild arthrosis of the radiocarpal row. Moderate arthrosis of the first CMC joint. Mild arthrosis of the visualized MCP and IP joints. The soft tissue structures are unremarkable. RAD/Wrist min 3 Views IMPRESSION: Osteopenia with osteoarthritic changes as described. No acute abnormality, erosive changes, chondrocalcinosis or periostitis. Electronically Signed: Rodrigo Alvares MD at 10:20 EST , Service support ,
== END 2021-09-14 23:59 | disposition short-term general hospital (02) ==
PROVIDERS: PCP Family Medicine; Referring Provider Family Medicine; Visit Provider Family Medicine
DX: M25.532 Pain in left wrist (principal)
CPT/HCPCS: 73110

== ENCOUNTER 2021-12-08 13:43 | Outpatient (CLI) | payer MEDICARE, OTHER, SELFPAY ==
[2021-12-08 15:07] LABS: Hematocrit 43.2 % (37-47); Hemoglobin 13.8 g/dL (12.0-15.0); Mean Corp Hgb Conc 31.9 g/dL (32-36); Mean Corpuscular Hgb 26.3 pg (27.0-32.0); Mean Corpuscular Volume 82.4 fL (81-99); Mean Platelet Vol. 10.8 fl (6.2-12.0); Platelet Count 257 K/mm3 (150-450); RBC Distribution Width CV 15.4 % (11.6-14.6); RBC Distribution Width SD 45.9 fl (35.1-43.9); Red Blood Count 5.24 M/mm3 (4.2-5.4); White Blood Count 9.4 K/mm3 (4.4-11.0)
== END 2021-12-08 23:59 | disposition home or self-care (01) ==
PROVIDERS: PCP Family Medicine; Visit Provider Family Medicine
DX: T14.8XXA Other injury of unspecified body region, initial encounter (principal)
CPT/HCPCS: 36415; 85027

== ENCOUNTER 2021-12-09 13:19 | Outpatient (CLI) | payer MEDICARE, OTHER, SELFPAY ==
--- NOTE | 2021-12-09 13:23 | BI_ITS ---
MAMMOGRAPHY - BILATERAL SCREENING 3-D TOMOSYNTHESIS REASON FOR EXAM: Female, 71 years old. SCREENING PERTINENT HISTORY: No significant family history. TECHNIQUE: 2-D mammograms and 3-D Tomosynthesis of the breast (s) were performed. CAD was performed. COMPARISON: 05/17/2017 FINDINGS: The breast composition is heterogeneously dense that can obscure small breast masses. Scattered benign calcifications are seen. No dense spiculated masses or suspicious microcalcifications are identified. No architectural distortion is identified. There is no skin thickening or retraction. There has been no significant change since the prior study. BI/SCRN MAMM (CAD)W/WAN BILAT IMPRESSION: No mammographic signs of malignancy. Routine yearly mammograms recommended. ASSESSMENT CATEGORY: BIRADS Category 1: Negative. A letter regarding these results will be sent to the patient by the facility within 30 days. FOLLOW UP RECOMMENDATION: Yearly follow up mammogram recommended. (A) Approximately 10% of breast cancers are not detected by mammography. A normal mammogram should not delay biopsy of a clinically suspicious abnormality. Electronically Signed: Omar Nicholson MD at 14:53 EDT ,
== END 2021-12-09 23:59 | disposition home or self-care (01) ==
LOC: OPBI 13:20
PROVIDERS: PCP Family Medicine; Visit Provider Family Medicine
DX: Z12.31 Encounter for screening mammogram for malignant neoplasm of breast (principal)
CPT/HCPCS: 77063; 77067

== ENCOUNTER → 2021-12-30 | Outpatient (CLI) | payer MEDICARE, OTHER, SELFPAY ==
[2021-12-30 15:22] LABS: Hematocrit 44.9 % (37-47); Hemoglobin 14.1 g/dL (12.0-15.0); Mean Corp Hgb Conc 31.4 g/dL (32-36); Mean Corpuscular Hgb 26.5 pg (27.0-32.0); Mean Corpuscular Volume 84.2 fL (81-99); Mean Platelet Vol. 11.2 fl (6.2-12.0); Platelet Count 274 K/mm3 (150-450); RBC Distribution Width CV 15.3 % (11.6-14.6); RBC Distribution Width SD 45.9 fl (35.1-43.9); Red Blood Count 5.33 M/mm3 (4.2-5.4)
[2021-12-30 15:41] LABS: Erythrocyte Sedimentation Rate 36 mm/hr (0-30)
[2021-12-30 15:56] LABS: Vitamin B12 787 pg/mL (211-911); Vitamin D,25 Hydroxy 57.8 ng/mL
[2021-12-30 16:03] LABS: Anion Gap 10 (5-15); BUN 19 mg/dL (7-18); BUN/Creat Ratio 19.2 RATIO (10-20); Calcium,Total 10.4 mg/dL (8.5-10.1); Chloride 102 mmol/L (98-107); Creatinine, Serum 0.99 mg/dL (0.55-1.02); EST Glomerular Filtration Rate 59 mL/min (>60); Est Glom Filt Rate - Afr Amer 71 mL/min (>60); Glucose 304 mg/dL (74-106); Iron 73 ug/dL (50-170); Potassium 3.9 mmol/L (3.5-5.1); Sodium Level 134 mmol/L (136-145); Thyroid Stim Hormone (TSH) 1.26 uIU/mL (0.358-3.74)
== END | disposition home or self-care (01) ==
LOC: MFPLAB 11:35
PROVIDERS: PCP Family Medicine; Visit Provider Family Medicine
DX: L65.9 Nonscarring hair loss, unspecified (principal); E55.9 Vitamin D deficiency, unspecified
CPT/HCPCS: 36415; 80048; 82306; 82607; 83540; 84443; 85027; 85652

== ENCOUNTER → 2022-01-21 | Outpatient (CLI) | payer MEDICARE, OTHER, SELFPAY ==
[2022-01-21 15:48] LABS: Absolute Lymphocyte Count 1.52 X10^3/uL (0.83-4.51); Absolute Neutrophil Count 3.3 X10^3/uL (2.0-7.7); Basophil# 0.05 X10^3/uL; Basophil% 0.8 % (0-1); Eosinophil# 0.24 X10^3/uL; Eosinophils% 4.1 % (0-5); Hematocrit 44.8 % (37-47); Lymphocyte # 1.52 X10^3/ul (0.83-4.51); Lymphocyte % 25.8 % (19-41); Mean Corp Hgb Conc 31.3 g/dL (32-36); Mean Corpuscular Hgb 26.9 pg (27.0-32.0); Mean Platelet Vol. 10.9 fl (6.2-12.0); Monocyte# 0.64 X10^3/uL; Monocyte% 10.9 % (0-10); NRBC Flagged by Analyzer 0 % (0-5); Neutrophil # 3.34 X10^3/uL (2.7-7.7); Neutrophil % 56.7 % (47-70); Platelet Count 227 K/mm3 (150-450); RBC Distribution Width CV 15.9 % (11.6-14.6); RBC Distribution Width SD 48.9 fl (35.1-43.9); Red Blood Count 5.21 M/mm3 (4.2-5.4); White Blood Count 5.9 K/mm3 (4.4-11.0)
[2022-01-21 16:13] LABS: Erythrocyte Sedimentation Rate 20 mm/hr (0-30)
[2022-01-21 16:19] LABS: ALB/GLOB Ratio 0.9 RATIO (0.9-2.4); AST(SGOT) 34 U/L (15-37); Alanine Aminotransfer ALT/SGPT 59 U/L (13-56); Albumin, Serum 3.6 g/dL (3.2-5.0); Alkaline Phosphatase 74 U/L (45-117); Anion Gap 8 (5-15); BUN 15 mg/dL (7-18); Calcium,Total 9.4 mg/dL (8.5-10.1); Chloride 105 mmol/L (98-107); EST Glomerular Filtration Rate 58 mL/min (>60); Est Glom Filt Rate - Afr Amer 70 mL/min (>60); Globulin 3.8 g/dL (2.2-4.2); Glucose 200 mg/dL (74-106); Potassium 3.8 mmol/L (3.5-5.1); Protein, Total 7.4 g/dL (6.4-8.2); Sodium Level 139 mmol/L (136-145)
[2022-01-23 15:08] LABS: QNTFERON TB Mitogen Value > 10.00 IU/mL (.); QNTFERON TB Nil Value 0.04 IU/mL (.); QNTFERON TB1+ Ag Value 0.05 IU/mL (.); QNTFERON TB2+ Ag Value 0.05 IU/mL (.)
[2022-01-24 08:37] LABS: QNTIFERON TB Positive Criteria Negative (Negative)
== END | disposition home or self-care (01) ==
LOC: MFPLAB 13:41
PROVIDERS: PCP Family Medicine; Visit Provider Family Medicine
DX: M06.9 Rheumatoid arthritis, unspecified (principal)
CPT/HCPCS: 36415; 80053; 85025; 85652; 86140; 86480

== ENCOUNTER → 2022-02-02 | Outpatient (CLI) | payer MEDICARE, SELFPAY ==
--- NOTE | 2022-02-02 15:36 | RAD_ITS ---
STUDY: X-RAY - LEFT SHOULDER REASON FOR EXAM: Female, 71 years old. Pain. TECHNIQUE: 4 view(s) of the shoulder. COMPARISON: Left shoulder, 04/05/2017 FINDINGS: There is a left prosthetic shoulder. The humeral and glenoid components are intact and articulate normally with each other. There is no fracture or loosening from the underlying bone. Normal acromioclavicular joint. Normal acromion. Otherwise normal visualized proximal humerus. The soft tissue structures are unremarkable. Normal visualized pulmonary apex. RAD/Shoulder min 2 Views IMPRESSION: Left shoulder replacement without fracture or dislocation. No major interval change. Electronically Signed: Ferny Velazco DO at 21:46 EDT ,
== END | disposition home or self-care (01) ==
PROVIDERS: PCP Family Medicine; Referring Provider Nurse Practitioner Family; Visit Provider Nurse Practitioner Family
DX: M25.512 Pain in left shoulder (principal)
CPT/HCPCS: 73030

== ENCOUNTER → 2022-02-15 | Outpatient (CLI) | payer MEDICARE, SELFPAY ==
--- NOTE | 2022-02-15 12:43 | RAD_ITS ---
STUDY: X-RAY - UNILATERAL RIBS ( RIGHT ) REASON FOR EXAM: Female, 71 years old. PAIN IN RIB TECHNIQUE: 4 view(s) of the ribs. COMPARISON: None. FINDINGS: Acute fracture of the anterolateral aspect of the ninth rib, minimally displaced. No definite pneumothorax. RAD/Ribs Unil 2V No CXR IMPRESSION: Acute right ninth rib fracture. Electronically Signed: Yarelis Ledesma MD at 3:45 EDT ,
== END | disposition home or self-care (01) ==
LOC: MTRAD 12:42
PROVIDERS: PCP Family Medicine; Referring Provider Family Medicine; Visit Provider Family Medicine
DX: R07.81 Pleurodynia (principal)
CPT/HCPCS: 71100

== ENCOUNTER → 2022-05-06 | Outpatient (CLI) | payer MEDICARE, OTHER, SELFPAY ==
--- NOTE | 2022-05-06 13:20 | RAD_ITS ---
STUDY: X-RAY - RIGHT ELBOW REASON FOR EXAM: Female, 71 years old. pt fell in water yesterday, limited study pt unable to move arm very well TECHNIQUE: 4 view(s) of the elbow. COMPARISON: None. FINDINGS: No visualized acute fracture or displaced fragment. A large loose body or cortical based osteophyte is seen in the anterior distal aspect of the humerus intercondylar region. Normal visualized radius and ulna. The humeral ulnar articulation is moderately narrowed. Normal radiocapitellar articulation. The soft tissue structures are unremarkable. RAD/Elbow min 3 Views IMPRESSION: 1. No visualized acute fracture or displaced fragment. A large loose body or cortical based osteophyte is seen in the anterior distal aspect of the humerus intercondylar region. Electronically Signed: Kei Simpson MD at 14:18 EDT ,
--- NOTE | 2022-05-06 13:20 | RAD_ITS ---
STUDY: X-RAY - RIGHT SHOULDER REASON FOR EXAM: Female, 71 years old. Pain -- RIGHT SHOULDER PAIN TECHNIQUE: 3 view(s) of the shoulder. COMPARISON: None. FINDINGS: There is moderate degenerative arthrosis of the glenohumeral articulation. Ossification is seen in the region of the right glenohumeral joint suggests a possible synovial chondromatosis. There is hypertrophic osteoarthrosis of the acromioclavicular joint with inferior osseous spur formation. Normal acromion. Normal humeral head and visualized proximal humerus. The soft tissue structures are unremarkable. Normal visualized pulmonary apex. RAD/Shoulder min 2 Views IMPRESSION: Degenerative changes of the glenohumeral joint and right acromioclavicular joint with findings suggestive of synovial chondromatosis. Electronically Signed: Hung Graham MD at 14:01 EDT ,
== END | disposition home or self-care (01) ==
PROVIDERS: PCP Family Medicine; Referring Provider Family Medicine; Visit Provider Family Medicine
DX: M25.511 Pain in right shoulder (principal); M25.521 Pain in right elbow
CPT/HCPCS: 73030; 73080

== ENCOUNTER → 2022-05-24 | Outpatient (CLI) | payer MEDICARE, OTHER, SELFPAY ==
--- NOTE | 2022-05-24 14:45 | CT_ITS ---
STUDY: CT FACIAL BONES WITHOUT CONTRAST REASON FOR EXAM: Female, 71 years old. SINUSITIS RADIATION DOSAGE (If Supplied By Facility): CTDIvol = ( 28.14 ) mGy, DLP = ( 718.05 ) mGycm TECHNIQUE: The patient was scanned in a multi detector CT scanner. Sagittal and coronal images were reconstructed. Individualized dose optimization techniques were used for this CT. COMPARISON: None. FINDINGS: Normal soft tissue structures. Normal orbital garzon and orbital contents. Nasal septal deviation towards the left side of the midline. Normal facial bones. There is no demonstrated fracture. Mild degree of mucosal thickening of the ethmoid sinuses bilaterally. CT/Sinus/Facial Bone IMPRESSION: Mild degree of mucosal thickening of the ethmoid sinuses bilaterally. Nasal septal deviation towards the left side of the midline. Electronically Signed: Hung Graham MD at 15:43 EDT ,
== END | disposition home or self-care (01) ==
PROVIDERS: PCP Family Medicine; Referring Provider Family Medicine; Visit Provider Family Medicine
DX: J32.9 Chronic sinusitis, unspecified (principal)
CPT/HCPCS: 70486

== ENCOUNTER → 2022-05-25 | Outpatient (CLI) | payer MEDICARE, OTHER, SELFPAY ==
--- NOTE | 2022-05-25 15:55 | RAD_ITS ---
STUDY: X-RAY - RIGHT ELBOW REASON FOR EXAM: Female, 71 years old. Increasing elbow pain. TECHNIQUE: 3 view(s) of the elbow. COMPARISON: None. FINDINGS: Normal visualized humerus, radius and ulna. There is degenerative arthrosis of the radiocapitellar and ulnotrochlear articulations. There is an irregular bony density anterior to the distal humerus which may extend off the coronoid process of the ulna. This is well corticated thought to be arthritic in origin. No visualized acute fracture or dislocation. The soft tissue structures are unremarkable. RAD/Elbow min 3 Views IMPRESSION: Arthritic changes of the elbow. Electronically Signed: Ferny Velazco DO at 16:23 EDT ,
== END | disposition home or self-care (01) ==
LOC: MTRAD 15:50
PROVIDERS: PCP Family Medicine; Referring Provider Family Medicine; Visit Provider Family Medicine
DX: M19.021 Primary osteoarthritis, right elbow (principal)
CPT/HCPCS: 73080

== ENCOUNTER → 2022-06-21 | Outpatient (CLI) | payer MEDICARE, OTHER, SELFPAY ==
--- NOTE | 2022-06-21 11:18 | MRI_ITS ---
EXAM: MR RIGHT UPPER EXTREMITY WITHOUT INTRAVENOUS CONTRAST, SHOULDER CLINICAL INDICATION: PAIN TECHNIQUE: Multiplanar and multisequence MR images of the right shoulder without intravenous contrast. This report was created using [employer] report generation technology. COMPARISON: May 06, 2022 right shoulder radiography. FINDINGS: TENDONS: SUPRASPINATUS: Small to moderate grade focal intrasubstance tear at the footprint of the supraspinatus tendon. Moderate supraspinatus and infraspinous tendinosis. INFRASPINATUS: 6 mm ovoid hypointensity with adjacent small linear fluid along the myotendinous junction of the infraspinatus. This could represent a focus of calcium hydroxyapatite crystal deposition disease. SUBSCAPULARIS: Unremarkable. Intact. TERES MINOR: Unremarkable. Intact. BICEPS BRACHII, LONG HEAD: Intact long head of the biceps tendon which is normal in position. The extra-articular biceps tendon is in the bicipital groove. LIGAMENTS: GLENOHUMERAL: Unremarkable. Intact. MUSCLES: Unremarkable. No rotator cuff muscle atrophy. FLUID: Moderate glenohumeral joint effusion with synovitis. No intra-articular ossific bodies. Small amount of fluid in the subacromial/subdeltoid bursa can be seen with bursitis. CARTILAGE: Unremarkable. Articular cartilage intact. GLENOID LABRUM: Unremarkable. Intact, limited evaluation on non-arthrographic exam. BONES/JOINTS: Extensive benign cystic changes involving the humeral head. Moderate to severe hypertrophic degenerative changes of the acromioclavicular joint. Global labral degeneration. Severe hypertrophic degenerative changes of the glenohumeral joint with mild mass effect on the underlying soft tissues. Type II acromion with curved undersurface. No subacromial enthesophyte. No os acromiale. No fracture. No abnormal bone marrow signal. OTHER SOFT TISSUES: Unremarkable. No rotator interval edema. MRI/Upper Ext Joint Only(Routine) IMPRESSION: 1. Small to moderate grade focal intrasubstance tear at the footprint of the supraspinatus tendon. 2. Global labral degeneration. 3. Severe hypertrophic degenerative changes of the acromioclavicular joint. Electronically Signed: Alexandre Lee MD at 20:43 EDT ,
== END | disposition home or self-care (01) ==
LOC: MRI 10:56
PROVIDERS: PCP Family Medicine; Referring Provider Family Medicine; Visit Provider Family Medicine
DX: M25.511 Pain in right shoulder (principal)
CPT/HCPCS: 73221

== ENCOUNTER → 2022-09-20 | Outpatient (CLI) | payer MEDICARE, OTHER, SELFPAY ==
[2022-09-20 15:36] LABS: Absolute Lymphocyte Count 1.17 X10^3/uL (0.83-4.51); Absolute Neutrophil Count 5.5 X10^3/uL (2.0-7.7); Basophil# 0.07 X10^3/uL; Basophil% 0.9 % (0-1); Eosinophil# 0.51 X10^3/uL; Eosinophils% 6.3 % (0-5); Hematocrit 47.1 % (37-47); Hemoglobin 14.5 g/dL (12.0-15.0); Lymphocyte # 1.17 X10^3/ul (0.83-4.51); Lymphocyte % 14.4 % (19-41); Mean Corp Hgb Conc 30.8 g/dL (32-36); Mean Corpuscular Hgb 25.3 pg (27.0-32.0); Mean Corpuscular Volume 82.2 fL (81-99); Mean Platelet Vol. 10.5 fl (6.2-12.0); Monocyte# 0.76 X10^3/uL; Monocyte% 9.4 % (0-10); NRBC Flagged by Analyzer 0 % (0-5); Neutrophil # 5.45 X10^3/uL (2.7-7.7); Neutrophil % 67.3 % (47-70); Platelet Count 281 K/mm3 (150-450); RBC Distribution Width CV 16.1 % (11.6-14.6); Red Blood Count 5.73 M/mm3 (4.2-5.4); White Blood Count 8.1 K/mm3 (4.4-11.0)
[2022-09-20 16:03] LABS: Erythrocyte Sedimentation Rate 45 mm/hr (0-30)
[2022-09-20 16:34] LABS: ALB/GLOB Ratio 0.8 RATIO (0.9-2.4); AST(SGOT) 18 U/L (15-37); Alanine Aminotransfer ALT/SGPT 32 U/L (13-56); Albumin, Serum 3.4 g/dL (3.2-5.0); Alkaline Phosphatase 98 U/L (45-117); Anion Gap 14 (5-15); BUN 14 mg/dL (7-18); BUN/Creat Ratio 14.9 RATIO (10-20); Calcium,Total 9.9 mg/dL (8.5-10.1); Chloride 102 mmol/L (98-107); Creatinine, Serum 0.94 mg/dL (0.55-1.02); EST Glomerular Filtration Rate 63 mL/min (>60); Est Glom Filt Rate - Afr Amer 76 mL/min (>60); Glucose 172 mg/dL (74-106); Potassium 3.9 mmol/L (3.5-5.1); Protein, Total 7.4 g/dL (6.4-8.2); Sodium Level 137 mmol/L (136-145); Thyroid Stim Hormone (TSH) 1.54 uIU/mL (0.358-3.74)
== END | disposition home or self-care (01) ==
PROVIDERS: PCP Family Medicine; Visit Provider Family Medicine
DX: M06.9 Rheumatoid arthritis, unspecified (principal); E11.42 Type 2 diabetes mellitus with diabetic polyneuropathy; E55.9 Vitamin D deficiency, unspecified
CPT/HCPCS: 36415; 80053; 82306; 84443; 85025; 85652; 86140

== ENCOUNTER → 2022-09-29 | Outpatient (CLI) | payer MEDICARE, SELFPAY ==
--- NOTE | 2022-09-29 15:40 | RAD_ITS ---
EXAM: XR LEFT WRIST COMPLETE, 3 OR MORE VIEWS CLINICAL INDICATION: ULNAR FRACTURE TECHNIQUE: Frontal, lateral and oblique views of the left wrist. This report was created using [employer] report generation technology. COMPARISON: 09/14/2021 FINDINGS: BONES/JOINTS: Unremarkable. No acute fracture. No subluxation. Normal alignment. Preservation of the joint space. No sclerotic or destructive changes observed. SOFT TISSUES: Unremarkable. No soft tissue swelling or gas. No radiopaque foreign body. RAD/Wrist min 3 Views IMPRESSION: No acute or healing fracture identified involving the ulna or the remainder of the left wrist. Electronically Signed: Roberto Tejada MD at 1:50 EST ,
== END | disposition home or self-care (01) ==
PROVIDERS: PCP Family Medicine; Referring Provider Family Medicine; Visit Provider Family Medicine
DX: S52.212A Greenstick fracture of shaft of left ulna, initial encounter for closed fracture (principal)
CPT/HCPCS: 73110

== ENCOUNTER → 2022-11-11 | Outpatient (CLI) | payer MEDICARE, OTHER, SELFPAY ==
--- NOTE | 2022-11-11 14:03 | CT_ITS ---
EXAM: CT RIGHT UPPER EXTREMITY WITHOUT INTRAVENOUS CONTRAST CLINICAL INDICATION: TRAUMA TECHNIQUE: Helically acquired images were obtained of the right upper extremity without intravenous contrast. 2-D reformats were performed by the technologist. CTDIvol = ( 24.58 ) mGy, DLP = ( 493.00 ) mGycm This CT exam was performed using one or more of the following dose reduction techniques: automated exposure control, adjustment of the mA and/or kV according to patient size, and/or use of iterative reconstruction technique. This report was created using [employer] report [employer] technology. COMPARISON: May 25, 2022 radiographic exam and June 21, 2022 MRI FINDINGS: BONES/JOINTS: Moderate osteoarthritic changes about the elbow. Multiple intra-articular ossific bodies, largest is well-corticated and seen anteriorly measuring up to 2.2 cm. Elbow joint effusion is present with displacement of the anterior or posterior fat pads. No acute or healing fracture or malalignment. No other unusual lytic or sclerotic lesions of bone. SOFT TISSUES: Unremarkable. No soft tissue swelling or gas. No radiopaque foreign body. CT/Extremity Upper without Contra IMPRESSION: 1. Elbow joint effusion present with intra-articular ossific bodies. 2. Moderate osteoarthrosis of the elbow. 3. No acute or healing fracture or malalignment. Electronically Signed: Alexandre Lee MD at 1:53 EDT ,
== END | disposition home or self-care (01) ==
LOC: CT 13:59
PROVIDERS: PCP Family Medicine; Referring Provider Specialist; Visit Provider Specialist
DX: S50.01XA Contusion of right elbow, initial encounter (principal); X58.XXXA Exposure to other specified factors, initial encounter
CPT/HCPCS: 73200

== ENCOUNTER → 2022-12-29 | Outpatient (CLI) | payer MEDICARE, OTHER, SELFPAY ==
--- NOTE | 2022-12-29 10:05 | BI_ITS ---
MAMMOGRAPHY - BILATERAL SCREENING REASON FOR EXAM: Female, 72 years old. Routine annual screening examination. PERTINENT HISTORY: Non-contributory. TECHNIQUE: Digital bilateral breast wan (3D mammographic acquisition) in the CC and MLO projections. 2-D mediolateral oblique (MLO) and craniocaudad (CC) views of both breasts were obtained. CAD: Full Field Digital Mammography with Computer Added Detection was performed. COMPARISON: Comparison is made with prior study December 09, 2021 and May 17, 2017. FINDINGS: Breast Composition: The breasts are heterogeneously dense, which may obscure small masses. There are no dominant masses or suspicious calcifications. Stable bilateral calcifications. No focal cluster is seen. No other significant abnormalities are identified. There has been no significant change since the prior study. BI/SCRN MAMM (CAD)W/WAN BILAT IMPRESSION: Stable bilateral screening mammogram. Yearly follow-up mammogram recommended. (A) ASSESSMENT CATEGORY: BIRADS Category 2: Benign. A letter regarding these results will be sent to the patient by the facility within 30 days. Approximately 10% of breast cancers are not detected by mammography. A normal mammogram should not delay biopsy of a clinically suspicious abnormality. [id number] Electronically Signed: Hung Graham MD at 10:44 EDT ,
--- NOTE | 2022-12-29 10:21 | BD_ITS ---
STUDY: DUAL ENERGY X-RAY ABSORPTIOMETRY / DXA REASON FOR EXAM: Female, 72 years old. [id number] TECHNIQUE: Bone Mineral Density (BMD) measurements of lumbar spine and bilateral hips were obtained. COMPARISON: Comparison is made with prior study May 17, 2017. FINDINGS: Lumbar Spine (L1-L4): g/cm2 (1.008) / T-score (-0.4) / Z-score (1.8) Findings are suggestive of 1.8 with a low fracture risk. Left Femur Total: g/cm2 (0.914) / T-score (-0.2) / Z-score (1.4) Left Femoral Neck: g/cm2 (0.733) / T-score (-1.0) / Z-score (0.8) Right Femur Total: g/cm2 (0.923) / T-score (-0.2) / Z-score (1.4) Right Femoral Neck: g/cm2 (0.665) / T-score (-1.7) / Z-score (0.2) The T-Scores on the most recent prior examination were: Lumbar Spine (L1-L4): There has been worsening of bone density since the previous examination. Left Femur Total: which represents an improvement of 3.6%. Right Femur Total: which represents an improvement of 9.4%. BD/Dexa Bone Density Study IMPRESSION: The patient is considered osteopenic as outlined below according to World Moris Organization (WHO) criteria with a moderate fracture risk. There has been improvement of bone density since the previous examination. Reference Information: The T-score is the number of standard deviations above or below the standard which is normal for young adults at their peak bone mineral density. The World Health Organization (WHO) interprets the T-scores as follows: Above -1 Normal bone density Between -1 and -2.5 Osteopenia Equal to / or below -2.5 Osteoporosis As a practical clinical guideline, osteopenia may be graded as follows: Mild -1 through -1.5 Moderate -1.6 through -2.0 Severe -2.1 through -2.4 The Z-score is the number of standard deviations above or below age-matched controls. A Z-score of less than -1.5 would be considered abnormal. References: 1. NIH Osteoporosis and Related Bone Diseases www osteo.org 2. International Society for Clinical Densitometry www iscd.org 3. National Osteoporosis Foundation www nof.org Electronically Signed: Hung Graham MD at 10:42 EDT ,
== END | disposition home or self-care (01) ==
LOC: OPBD 10:03
PROVIDERS: PCP Family Medicine; Referring Provider Family Medicine; Visit Provider Family Medicine
DX: Z12.31 Encounter for screening mammogram for malignant neoplasm of breast (principal); Z78.0 Asymptomatic menopausal state
CPT/HCPCS: 77063; 77067; 77080

== ENCOUNTER → 2023-01-06 | Outpatient (CLI) | payer MEDICARE, OTHER, SELFPAY ==
--- NOTE | 2023-01-06 13:31 | STRESSREP ---
Stress Test Report Pharmacologic myocardial perfusion stress test. 72-year-old lady with a history of syncope Resting EKG demonstrates normal sinus rhythm with a rate of 96 bpm. Resting blood pressure is 119/80 mmHg. 0.4 mg of regadenoson was infused per usual protocol followed by rapid intravenous saline flush injection. Continuous EKG monitoring was performed. The maximum heart rate was 137 bpm which was 91% of max impacted heart rate the maximum workload was 1 metabolic equivalent. At rest there were no ST or T wave changes noted to suggest ischemia and at peak infusion nonspecific ST changes were noted which did not meet the criteria for ischemia. No clinical angina is noted. The final blood pressure was 110/72 mmHg. Myocardial perfusion protocol. 14.8 mCi of technetium 99m sestamibi was injected at rest. 0.4 mg of regadenoson was infused per usual protocol. At peak infusion 45.7 mCi of technetium 99m sestamibi was injected stress images were obtained stress and rest images were reconstructed and compared in the short axis vertical long and horizontal long axis. Gated images were also obtained. Perfusion SPECT analysis: Review of the stress images demonstrate normal uptake of tracer noted in all areas of the myocardium except for the anterior wall with some reduction of perfusion. The resting images similar demonstrated normal uptake of tracer noted in all areas of the myocardium. A small amount of anterior ischemia cannot be completely excluded. Gated SPECT analysis: The gated ejection fraction is 67%. Conclusion: Abnormal pharmacologic myocardial perfusion stress test with mild anterior ischemia. Preserved ejection fraction.
== END | disposition home or self-care (01) ==
PROVIDERS: PCP Family Medicine; Referring Provider Internal Medicine Cardiovascular Disease; Visit Provider Internal Medicine Cardiovascular Disease
DX: I25.10 Atherosclerotic heart disease of native coronary artery without angina pectoris (principal)
CPT/HCPCS: 78452; 93017; A9500; A4216; J2785

== ENCOUNTER → 2023-01-25 | Outpatient (CLI) | payer MEDICARE, OTHER, SELFPAY ==
--- NOTE | 2023-01-25 09:31 | RAD_ITS ---
EXAM: XR CHEST, 2 VIEWS CLINICAL INDICATION: abnormal stress test TECHNIQUE: Frontal and lateral views of the chest. COMPARISON: No relevant prior studies available. FINDINGS: LUNGS AND PLEURAL SPACES: Unremarkable. No consolidation or edema. No pneumothorax. No effusion. HEART: Unremarkable. Cardiac silhouette not enlarged. MEDIASTINUM: Central airways and mediastinal contour are unremarkable. BONES/JOINTS: There is a left shoulder prosthesis. SOFT TISSUES: Unremarkable. RAD/Chest PA and Lateral IMPRESSION: No acute findings in the chest. Electronically Signed: Aristeo Yoo MD at 21:16 EDT ,
[2023-01-25 12:43] LABS: Prothrombin Time (Protime)PT. 13.4 SECONDS (11.7-14.9)
[2023-01-25 12:44] LABS: Partial Thromboplast Time 26.2 Seconds (24.1-36.2)
[2023-01-25 12:45] LABS: Erythrocyte Sedimentation Rate 30 mm/hr (0-30)
[2023-01-25 12:47] LABS: Absolute Lymphocyte Count 1.36 X10^3/uL (0.83-4.51); Absolute Neutrophil Count 5.7 X10^3/uL (2.0-7.7); Basophil# 0.06 X10^3/uL; Basophil% 0.7 % (0-1); Eosinophil# 0.22 X10^3/uL; Eosinophils% 2.7 % (0-5); Hematocrit 45.5 % (37-47); Hemoglobin 13.7 g/dL (12.0-15.0); Lymphocyte # 1.36 X10^3/ul (0.83-4.51); Lymphocyte % 16.8 % (19-41); Mean Corp Hgb Conc 30.1 g/dL (32-36); Mean Corpuscular Hgb 25.6 pg (27.0-32.0); Mean Platelet Vol. 9.4 fl (6.2-12.0); Monocyte# 0.58 X10^3/uL; Monocyte% 7.2 % (0-10); NRBC Flagged by Analyzer 0 % (0-5); Neutrophil # 5.72 X10^3/uL (2.7-7.7); Neutrophil % 70.6 % (47-70); Platelet Count 280 K/mm3 (150-450); RBC Distribution Width CV 15.6 % (11.6-14.6); Red Blood Count 5.35 M/mm3 (4.2-5.4); White Blood Count 8.1 K/mm3 (4.4-11.0)
[2023-01-25 13:38] LABS: AST(SGOT) 17 U/L (15-37); Alanine Aminotransfer ALT/SGPT 29 U/L (13-56); Albumin, Serum 3.3 g/dL (3.2-5.0); Alkaline Phosphatase 91 U/L (45-117); Anion Gap 9 (5-15); BUN 19 mg/dL (7-18); BUN/Creat Ratio 20.3 RATIO (10-20); Calcium,Total 9.4 mg/dL (8.5-10.1); Chloride 107 mmol/L (98-107); Cholesterol 221 mg/dL (200); Creatinine, Serum 0.94 mg/dL (0.55-1.02); EST Glomerular Filtration Rate 63 mL/min (>60); Est Glom Filt Rate - Afr Amer 76 mL/min (>60); Globulin 3.2 g/dL (2.2-4.2); Glucose 192 mg/dL (74-106); High Density Lipoprotein 43 mg/dL; Phosphorus 3.8 mg/dL (2.5-4.9); Protein, Total 6.5 g/dL (6.4-8.2); Sodium Level 139 mmol/L (136-145); Triglycerides 215 mg/dL; Uric Acid 5.4 mg/dL (2.6-6.0); Very Low Density Lipoprotein 43 mg/dL (5-40)
[2023-01-25 14:36] LABS: Vitamin D,25 Hydroxy 54.5 ng/mL
[2023-01-26 13:08] LABS: ANTINUCLEAR ANTIBODIES DIRECT Negative (Negative)
== END | disposition home or self-care (01) ==
PROVIDERS: PCP Family Medicine; Referring Provider Family Medicine; Visit Provider Family Medicine
DX: Z01.818 Encounter for other preprocedural examination (principal); M35.00 Sjogren syndrome, unspecified; E11.42 Type 2 diabetes mellitus with diabetic polyneuropathy; E55.9 Vitamin D deficiency, unspecified; Z01.810 Encounter for preprocedural cardiovascular examination; I25.10 Atherosclerotic heart disease of native coronary artery without angina pectoris; R94.39 Abnormal result of other cardiovascular function study; G47.30 Sleep apnea, unspecified; I10 Essential (primary) hypertension
CPT/HCPCS: 71046; 80053; 80061; 82306; 84100; 84550; 85025; 85610; 85652; 85730; 86038; 86140

== ENCOUNTER 2023-01-26 06:45 | Day surgery (SDC) | payer MEDICARE, OTHER, SELFPAY ==
--- NOTE | 2023-01-12 14:23 | PCM.HP.BLA ---
History and Physical Date of Admission: 01/26/23 [facility] History of Present Illness Details: This is a 72-year-old lady who presents today for a cardiac catheterization. She has a history of previous nonobstructive coronary artery disease but calcification, hypertension and arthritis.? She has been complaining of some dizziness lightheadedness presyncope.? She says that she had an echocardiogram performed last year which demonstrated preserved left ventricular systolic function.? She has not had any cardiac symptoms and has been on treatment for her hypertension.? She may be undergoing orthopedic surgery and wants to have a preoperative cardiac evaluation.? She therefore came to us for further evaluation and management.? She has had mild dizziness but no diaphoresis no near syncope or syncope.? She did undergo an echocardiogram which was technically difficult but demonstrated normal ejection fraction of 70% mild aortic sclerosis with a peak gradient of 17 mmHg and mean gradient of 11 mmHg. 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 Post traumatic stress disorder Rheumatoid arthritis Sinus arrhythmia Sinusitis Sjogren's disease Sleep apnea Surgical History?(Updated 11/26/22 @ 14:25 by Theron Oliver) H/O shoulder surgery History of arthroscopic knee surgery History of tonsillectomy Family History?(Updated 11/26/22 @ 14:28 by Theron Oliver) Mother Diabetes Hypertension Heart diseaseFather Diabetes Hypertension Heart disease CancerBrother Heart disease Hypertension Atrial fibrillation ObesityGrandmother AAA (abdominal aortic aneurysm)Grandfather Heart diseaseGrandmother Cancer Social History?(Updated 11/26/22 @ 14:28 by Theron Oliver) Smoking Status:? Former smoker alcohol intake:? former substance use type:? does not use ROS Const Const: Positive for fatigue, weakness and daytime sleepiness; Negative for headache(s), frequent falls, difficulty sleeping or excessive sweating Eyes Eyes: Negative for loss of peripheral vision, transient loss of vision, blurry vision, double vision or tunnel vision ENT ENT: Positive for dizziness; Negative for headache(s), Nosebleed/epistaxis or balance problems Cardio Chest Pain: No Palpitations: Yes (infrequently) feels like its: fast Edema: Bilateral (Mild) Muscle aches with walking: None Resp Respiratory: Positive for SOB with activity; Negative for SOB at rest, SOB orthopnea\SOB lying down, Cough or paroxysmal nocturnal dyspnea GI GI: Negative nausea, vomiting, heartburn or black,tarry stools : Negative for hematuria Musc Musc: Positive for muscle weakness and joint pain; Negative for muscle aches/ myalgia or balance problems Skin Skin: Negative non-healing lesions, rash or unusual bruising Neuro Neuro: Positive for dizziness, lightheadedness, near syncope, syncope (Passed out most recently in July 2022) and weakness; Negative for frequent falls, headache(s), blurry vision, double vision or lack of coordination Neil Hematologic/Lymphatic: Negative for easy bleeding or easy bruising Endo Endo: Positive for fatigue; Negative for excessive sweating or increased thirst/drinking Psych Psych: Negative for anxiety or depression Allergy Allergy/Immunology: Negative for hives and Negative for rash Cardiology Exam Const Appearance: cooperative, healthy appearing, no acute distress, well developed and well groomed Nutritional Appearance: average body habitus and well nourished Orientation: alert, awake and oriented x3 Head Head: normal to inspection, normocephalic and atraumatic Ears: hearing grossly normal bilaterally and external ears normal Nose: external nose normal, nares normal, nasal mucous membranes and turbinates normal, septum normal and no nasal discharge Face and Sinus: face symmetric Mouth: oral mucosae normal, tongue normal, oropharynx normal and moist mucous membranes Teeth and gingiva: dentition normal Throat: posterior oropharynx normal, tonsils normal and uvula midline Eyes General: appearance normal, both eyes and all related structures Eyelids: eyelids normal Conjunctivae: conjunctivae normal Pupils: PERRL, normal by confrontation and accommodation normal EOM: EOM intact bilaterally Neck Neck: normal visual inspection, trachea midline and no JVD JVD: +5 Carotids: normal carotid upstroke and bounding pulses Chest Chest inspection: normal inspection of the chest, symmetric chest movement and normal respiratory effort Auscultation: Bilateral: Clear to Auscultation Cardio Palpation: normal PMI Rate: regular rate Rhythm: regular rhythm Heart sounds: S1 normal, S2 normal and normal, physiologic split S2; Negative rub, gallop or murmur GI GI: normal to inspection, soft, no hepatosplenomegaly and bowel sounds present Neuro General: patient alert, patient awake, patient oriented x3, gait normal, moves all extremities and no focal sensory deficit Skin Skin: no rashes or lesions noted Extremities Pulses: Normal: Right Femoral Pulse, Left Femoral Pulse, Right Dorsalis Pedis Pulse, Left Dorsalis Pedis Pulse, Right Posterior Tibial Pulse, Left Posterior Tibial Pulse, Right Radial Pulse and Left Radial Pulse Lower Extremity Edema: None: Bilateral Musculoskel Musculoskeletal: No joint tenderness Psych Psychological: normal affect Supplemental Info Supplemental Information Stress Test 01/06/2023: Pharmacologic myocardial perfusion stress test. 72-year-old lady with a history of syncope Resting EKG demonstrates normal sinus rhythm with a rate of 96 bpm. Resting blood pressure is 119/80 mmHg. 0.4 mg of regadenoson was infused per usual protocol followed by rapid intravenous saline flush injection. Continuous EKG monitoring was performed. The maximum heart rate was 137 bpm which was 91% of max impacted heart rate the maximum workload was 1 metabolic equivalent. At rest there were no ST or T wave changes noted to suggest ischemia and at peak infusion nonspecific ST changes were noted which did not meet the criteria for ischemia. No clinical angina is noted. The final blood pressure was 110/72 mmHg. Myocardial perfusion protocol. 14.8 mCi of technetium 99m sestamibi was injected at rest. 0.4 mg of regadenoson was infused per usual protocol. At peak infusion 45.7 mCi of technetium 99m sestamibi was injected stress images were obtained stress and rest images were reconstructed and compared in the short axis vertical long and horizontal long axis. Gated images were also obtained. Perfusion SPECT analysis: Review of the stress images demonstrate normal uptake of tracer noted in all areas of the myocardium except for the anterior wall with some reduction of perfusion. The resting images similar demonstrated normal uptake of tracer noted in all areas of the myocardium. A small amount of anterior ischemia cannot be completely excluded. Gated SPECT analysis: The gated ejection fraction is 67%. Conclusion: Abnormal pharmacologic myocardial perfusion stress test with mild anterior ischemia. Preserved ejection fraction. Assessment and Plan Assessment and Plan (1) Abnormal stress test ?Status:?Plan: Patients most recent stress test from 01/06/2023 demonstrated an abnormal pharmacologic myocardial perfusion stress test with mild anterior ischemia. She will proceed with a cardiac catheterization to further assess her coronary arteries. Depending on results, further recommendations will be made. (2) Hypertension: ?Status:?Chronic ?Plan: She does have a history of hypertension.? Her blood pressure is under good control I would not recommend that we make any changes at this particular time.
[2023-01-26 07:11] VITALS: BMI 33.6
--- NOTE | 2023-01-26 08:56 | CL.D_ITS ---
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 Preserved left ventricular systolic function. RECOMMENDATIONS Referred for immediate PCI DESCRIPTION OF PROCEDURE The patient arrived to the procedure lab. The risks and benefits of the procedure as well as a full description of our services here and current unavailability of surgical backup were fully explained to the patient and/or their significant other prior to the catheterization. The Timeout was completed, verifying the correct patient and procedure. The patient's procedural site was prepped and draped in the usual fashion. Local anesthetic was given subcutaneously to right radial region with Lidocaine 2%. Using a modified Seldinger technique, Left Coronary Artery selective angiography was performed in multiple views using a 5 Fr. 4.0 [place] catheter. Right Coronary Artery selective angiography was then performed in multiple views using a 5 Fr. 4.0 [place] catheter. Right Coronary Artery selective angiography was then performed in multiple views using a 5 Fr. JR 4 catheter. Left Ventriculography was performed in GALEANA projection using a 5 Fr. Pigtail catheter. LV to AO pullback pressures were then recorded. CORONARY ANGIOGRAPHY DOMINANCE: Right Dominant LEFT HEART ASSESSMENT Left Ventricular Ejection Fraction: by LV Gram 60 % Normal LV wall motion Normal Left Ventricular systolic function LEFT MAIN: Angiographically normal LEFT ANTERIOR DESCENDING ARTERY: This is a medium size vessel giving off 2 diagonal branches and then the vessel appears to be totally occluded with a small distal vessel. The second diagonal which is a larger branch itself appears to be diseased. CIRCUMFLEX ARTERY: Nondominant but medium size vessel giving off a first obtuse marginal branch and a second obtuse marginal branch with a mid 80% stenotic lesion RIGHT CORONARY ARTERY: Mild luminal irregularities less than 30% COMPLICATIONS PROCEDURE MEDICATIONS Fentanyl 50 mcg IV Versed 1 mg IV Versed 1 mg IV Oxygen: 2 L/min via nasal cannula Aspirin (325mg) 1 Tabs PO 01/26/2023 07:10:58 Brilinta 180 mg PO @ 01/26/2023 08:41:08 Heparin given IA 01/26/2023 08:11:31 Verapamil 2.5mg, Ntg 100mcgs, 3000 units of Heparin given IA 01/26/2023 08:11:31 SUMMARY OF HEMODYNAMIC DATA Time AIR REST ECG 07:13:55 AO 86/52 (67) SA 08:24:05 LV 96/12, 22 08:37:58 LV 94/14, 18 08:38:06 LV 98/15, 19 08:38:58 LVp 95/18, 23 08:39:04 AOp 86/49 (64) 08:39:11 Signed By Gus Blue MD On 01/26/2023 08:55:34 Gus Blue MD
--- NOTE | 2023-01-26 10:47 | CL.I_ITS ---
Patient Name: REE WYLIE Study Date: 01/26/2023 Performing: Lily August MD Ht: 67 inches 170.18 cm : 1950 Wt: 215.59 lbs 97.79 kg Age: 72 Gender: female BSA: 2.09 PROCEDURE(S) PERFORMED IC12-(94128/[id number])BRANDIN W/WO PTCA, SINGLE CORONARY ARTERY CLINICAL PROFILE AND CO-MORBIDITIES Indications: Suspected CAD Heart Failure: None Stress/Imaging Date: 01/06/23 CAD Presentations: Other: SOB CONCLUSIONS Successful BRANDIN to mLCx RECOMMENDATIONS DESCRIPTION OF PROCEDURE The patient arrived to the procedure lab. The risks and benefits of the procedure as well as a full description of our services here and current unavailability of surgical backup were fully explained to the patient and/or their significant other prior to the catheterization. The Timeout was completed, verifying the correct patient and procedure. The patient's procedural site was prepped and draped in the usual fashion. Local anesthetic was given subcutaneously to right radial region with Lidocaine 2% Using a modified Seldinger technique, Left Coronary Artery selective angiography was performed in multiple views using a 5 Fr. 4.0 [place] catheter. Right Coronary Artery selective angiography was then performed in multiple views using a 5 Fr. 4.0 [place] catheter. Right Coronary Artery selective angiography was then performed in multiple views using a 5 Fr. JR 4 catheter. Left Ventriculography was performed in [place] projection using a 5 Fr. Pigtail catheter. LV to AO pullback pressures were then recorded.The images were reviewed and options discussed. A decision was then made to proceed with an Intervention, IVUS or other adjunct procedure. XB 3.0 Guide catheter was inserted and engaged into the LCA. BMW Guide wire was advanced to the Circumflex. 2.25 X 15 EUPHORA Balloon catheter was inserted. Balloon catheter was advanced across lesion in the circumflex, mid. Angiogram performed pre balloon dilatation. PTCA balloon inflated at 8 atms for 10 secs. PTCA balloon inflated at 8 atms for 10 secs. Angiogram performed post balloon dilatation. 2.25 X 26 MAGEN Drug Eluting stent was inserted. Drug Eluting stent was advanced across the lesion in the circumflex, mid. Angiogram performed post stent deployment. The arterial sheath was pulled and a TR Band was applied for hemostasis. 12CC AIR INSERTED. INTERVENTION INFORMATION LESION SITE: Circumflex (Mid) Lesion Complexity: High/C, chronic total occlusion: No, lesion at bifurcation: No, thrombus present: No, lesion length: 24 mm, culprit lesion: Yes, Previously treated lesion: No Pre Stenosis: 90 % Pre intervention ROSELYN flow: 3 PROCEDURE: Drug Eluting Stent with pre dilatation. Pt. tolerated the procedure well. She insists on going home today. She will be recovered in the cardiac catheterization technologist and 1 month supply of brilinta will be given to the patient. If her recovery is uneventful, she will be discharged home. Post Stenosis: 0 % Post intervention ROSELYN flow: 3 Lesion Devices: Juan .014 190cm BMW Wrights Straight Cordis 6 Fr XB3.0 100cm Guide Catheter Medtronic SC EUPHORA RX 2.25x15 BALLOON Medtronic Resolute Magen RX BRANDIN 2.25x26 COMPLICATIONS No Complications PROCEDURE MEDICATIONS Fentanyl 50 mcg IV Versed 1 mg IV Versed 1 mg IV Oxygen: 2 L/min via nasal cannula Aspirin (325mg) 1 Tabs PO 01/26/2023 07:10:58 Brilinta 180 mg PO @ 01/26/2023 08:41:08 Heparin given IA 01/26/2023 08:11:31 Heparin 6000 unit(s) IV 01/26/2023 09:43:05 Verapamil 2.5mg, Ntg 100mcgs, 3000 units of Heparin given IA 01/26/2023 08:11:31 SUMMARY OF HEMODYNAMIC DATA Time AIR REST ECG 07:13:55 AO 86/52 (67) SA 08:24:05 LV 96/12, 22 08:37:58 LV 94/14, 18 08:38:06 LV 98/15, 19 08:38:58 LVp 95/18, 23 08:39:04 AOp 86/49 (64) 08:39:11 AIR REST 10:30:17 Signed By Lily August MD On 01/26/2023 10:46:33 Lily August MD
--- NOTE | 2023-01-26 11:04 | EKG12_ITS ---
Test Reason : POST PCI Blood Pressure : / mmHG Vent. Rate : 087 BPM Atrial Rate : 087 BPM P-R Int : 266 ms QRS Dur : 090 ms QT Int : 380 ms P-R-T Axes : 091 034 069 degrees QTc Int : 457 ms Sinus rhythm with 1st degree A-V block Low voltage QRS Borderline ECG No previous ECGs available Confirmed by HAI DYE, GUS ([id number]), tape editor TAL LEMUS ([id number]) on 01/28/2023 12:57:24 PM Referred By: Gus Blue Confirmed By:GUS BLUE MD
--- NOTE | 2023-01-26 14:47 | CRPHASE1_ITS ---
Patient Communication Former Patient:: Phase I PHII Cardiac Rehab Discussed with Patient:: Yes Guide to Cardiac Rehab Given to Patient:: Yes Cardiac Rehab Facility Choice List Given to Patient:: Yes Cfd Engineer:: [facility] Refer Phase II Cardiac Rehab:: Yes Cardiac Rehabilitation Info Cardiac Rehabilitation Program Information: Cardiac Rehab The cardiac rehab team at [facility] consists of highly skilled exercise physiologists, nurses, respiratory therapists and physicians working together with you. Our purpose is to help you have a full recovery and achieve the goals you set for yourself. Over the years many of our patients have returned to activities they assumed they would never do again! We can help restore your confidence and motivation to make lifestyle changes that can have a significant impact on your health and quality of life! We can help answer questions and concerns you may have about exercise, lifestyle , medications, diet, stress and anxiety which are common following a hospitalization. WE monitor ECG and vital signs during exercise and discuss your progress with you and report to your physician(s). Cardiac Rehab is proven to help reduce readmissions, improve functional capacity and lower recurrence of problems with your heart. Our Cardiac Rehab program is Certified by the [place] [employer]-Vascular and Pulmonary [employer] (AACVPR) and Accredited by the [place] [employer] through our [facility]. You can contact us at . We invite you to call us with your questions or to get started in our program. If you have other questions or concerns be sure to ask your physician/provider during your follow-up visit. WE look forward to seeing you!
--- NOTE | 2023-01-26 14:48 | CRPH1.INSTRU ---
General Education CAD and cardiac anatomy and function:: Patient communicates acknowledgment Explanation of diagnoses and procedures:: Patient communicates acknowledgment Sign/Symptoms of CA:: Patient communicates acknowledgment Antiplatelet therapy: Patient communicates acknowledgment Proper use of NTG-SL: Patient communicates acknowledgment Emergency procedures and activation of EMS: Patient communicates acknowledgment Compliance of all prescribed medications: Patient communicates acknowledgment Smoking Patient Nicotine/Smoking Risk Factors Are:: Non-smoker, Never smoked Recommendations Include:: Second-hand smoke recommendation Nicotine/Smoking Response Code:: Patient communicates acknowledgment Dyslipidemia Patient Dyslipidemia Risk Factors Are:: Total Cholesterol, Triglycerides, HDL, LDL Recommendations Include:: Lipid profile not available Dyslipidemia Response Code:: Patient communicates acknowledgment Overweight/Obesity Patient Overweight/Obesity Risk Factors Are:: Obesity - > or = 30 Recommendations Include:: Weight loss of 5-10%, Reduced calorie diet, Exercise 5-7 times/week Overweight/Obesity:: Patient communicates acknowledgment Hypertension Recommendations Include:: Maintain BP <130/85 Hypertension:: Patient communicates acknowledgment Heart Disease Patient Heart Disease Risk Factors Are:: Family history of heart disease < 65 years old Recommendations Include:: Educated family members of their risk Heart Disease Response Code:: Patient communicates acknowledgment Diabetes Patient Diabetes Risk Factors Are:: Elevated blood sugars Recommendations Include:: Maintain fasting blood sugars 70-110 md/dL, Maintain HgbA1c of 6% or less Diabetes:: Patient communicates acknowledgment Metabolic Syndrome Recommendations Include:: Reinforce compliance to risk factor modifications Metabolic Syndrome Response Code:: Patient communicates acknowledgment Sedentary Patient Sedentary Risk Factors Are:: Lack of regular exercise Recommendations Include:: Aerobic exercise 5-7 times/week for 20-30 minutes continuously, Benefits of regular exercise, Discussed home walking program, Monitored Outpatient Cardiac Rehab Sedentary Response Code:: Patient communicates acknowledgment Stress Patient Stress Risk Factors Are:: Patient denies stress as a risk factor Recommendations Include:: Identification of stressors, and assessment of coping skills, Stress management techniques Stress Response Code:: Patient communicates acknowledgment
== END 2023-01-26 16:18 | disposition home or self-care (01) ==
PROVIDERS: PCP Family Medicine; Referring Provider Internal Medicine Cardiovascular Disease; Visit Provider Internal Medicine Cardiovascular Disease
DX: I25.10 Atherosclerotic heart disease of native coronary artery without angina pectoris (principal); I70.0 Atherosclerosis of aorta; Z87.891 Personal history of nicotine dependence; I10 Essential (primary) hypertension; Z79.899 Other long term (current) drug therapy; J45.909 Unspecified asthma, uncomplicated; E66.9 Obesity, unspecified; Z79.02 Long term (current) use of antithrombotics/antiplatelets; R94.39 Abnormal result of other cardiovascular function study
CPT/HCPCS: 92928; 93005; 93458; 99152; 99153; J7040; C1725; C1769; C1874; C1887; C1894; C9600; Q9967

== ENCOUNTER → 2023-02-11 | Outpatient (CLI) | payer MEDICARE, OTHER, SELFPAY ==
--- NOTE | 2023-02-11 08:05 | PCM.CR.HP2 ---
CR - History & Physical - General Arrival date:: 02/11/23 Arrival time:: 08:05 Date of Referral:: 01/28/23 Date of CR Evaluation:: 02/11/23 Referring Physician: Dr. Gus Blue Primary Diagnosis: PCI with coronary stent - History of Present Cardiac Event Onset Date: Enter Onset Date of cardiac illnesses in Comment field below PTCA or coronary stenting:: Yes - circumflex 01/26/23 - Sleep Disorder Evaluation Hx of Sleep Apnea: Yes Do you snore loudly (louder than talking or can be heard through closed doors)?: No Do you often feel tired/ fatigued/ sleepy during daytime?: No Has anyone observed you stop breathing during sleep?: No History of Hypertension (for STOP score): Yes STOP Results: Negative - Medications Home Medications: Ambulatory Orders Medication Instructions Recorded fluticasone 500 mcg-salmeterol 50 1 puff inhalation BID 01/23/15 mcg/dose blistr powdr for inhalation (Advair Diskus) fluticasone propionate 50 2 spray DAILY 01/23/15 mcg/actuation nasal spray,suspension (Flonase) albuterol sulfate 90 mcg/actuation 1 - 2 puff inhalation Q4H PRN PRN 04/15/15 aerosol inhaler (ProAir HFA) Asthma montelukast 10 mg tablet 10 mg PO QHS 04/15/15 amlodipine 10 mg tablet 10 mg PO DAILY 05/28/15 atorvastatin 20 mg tablet 20 mg PO DAILY 09/23/22 citalopram 40 mg tablet 40 mg PO DAILY 09/23/22 empagliflozin 10 mg tablet 10 mg PO DAILY 09/23/22 (Jardiance) furosemide 40 mg tablet 40 mg PO .prn 09/23/22 glipizide 5 mg tablet, extended 5 mg PO DAILY 09/23/22 release 24 hr hydrochlorothiazide 12.5 mg tablet 12.5 mg PO DAILY 09/23/22 leflunomide 20 mg tablet 20 mg PO DAILY 09/23/22 levetiracetam 750 mg 750 mg PO DAILY 09/23/22 tablet,extended release 24 hr losartan 100 mg tablet 100 mg PO DAILY 09/23/22 metformin 500 mg tablet 500 mg PO DAILY 09/23/22 ondansetron HCl 4 mg tablet 4 mg PO Q8H PRN Nausea 09/23/22 potassium chloride 20 mEq 20 meq PO DAILY 09/23/22 tablet,extended release pregabalin 75 mg capsule (Lyrica) 75 mg PO DAILY 09/23/22 quetiapine 100 mg tablet 200 mg PO DAILY 09/23/22 tiotropium bromide 2.5 2 puff inhalation DAILY 09/23/22 mcg/actuation mist for inhalation (Spiriva Respimat) meclizine 25 mg tablet 25 mg PO BID 11/26/22 alprazolam 0.5 mg tablet 0.5 mg PO BID Anxiety 12/15/22 atomoxetine 80 mg capsule 80 mg PO DAILY 12/15/22 guaifenesin 600 mg tablet, 600 mg PO BID 12/15/22 extended release 12 hr (Mucinex) venlafaxine 150 mg 300 mg PO DAILY 12/15/22 capsule,extended release 24 hr aspirin 81 mg tablet,delayed 81 mg PO DAILY 01/06/23 release (Adult Low Dose Aspirin) ticagrelor 90 mg tablet (Brilinta) 90 mg PO BID #60 tabs 01/26/23 - Allergies Allergies/Adverse Reactions: Allergies Sulfa (Sulfonamide Antibiotics) Allergy (Verified 12/15/22 14:55) Hives tree nut Allergy (Verified 12/15/22 14:55) Anaphylaxis Rabbit Adverse Reaction (Severe, Verified 12/15/22 14:55) NEEDS FOLLOW-UP sulfamethoxazole [From Bactrim] Adverse Reaction (Severe, Verified 12/15/22 14:55) Skin rashes & blisters trimethoprim [From Bactrim] Adverse Reaction (Severe, Verified 12/15/22 14:55) Skin rashes & blisters codeine Adverse Reaction (Verified 12/15/22 14:55) Other Environmental Allergies: Uncoded Adverse Reaction (Verified 01/25/23 14:18) NEEDS FOLLOW-UP skunk erythromycin base Adverse Reaction (Verified 12/15/22 14:55) Upset Stomach PT REPORTS UPSET STOMACH WITH USE milk [dairy] Adverse Reaction (Verified 12/15/22 14:55) Upset Stomach morphine Adverse Reaction (Verified 12/15/22 14:55) Nausea Advanced Directives - Advanced Directives Power of Chief Solution Architect: No Living Will: No Advance Directives Information Provided: No Advance Directives on File: No DNR Order?:: No Past Medical History - Covid-19 Screening 65 years or older:: Yes Has a chronic lung disease or moderate to severe asthma:: Yes Has a serious heart condition:: Yes - Past Medical Illness Medical History: Past Medical History (Last Updated 01/28/23 @ 15:50 by Mervat Murry) Abnormal stress test R94.39 Asthma J45.909 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 stented coronary artery 01/26/2023 First degree atrioventricular block I44.0 Gout M10.9 Hypertension I10 Lyme disease A69.20 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 Obesity E66.9 Other long term care administrator (current) drug therapy Z79.899 Post traumatic stress disorder F43.10 Rheumatoid arthritis M06.9 Sinus arrhythmia I49.8 Sinusitis J32.9 Sjogren's disease M35.00 Sleep apnea G47.30 - Past Surgical History Surgical History: Past Surgical History (Last Updated 01/28/23 @ 15:51 by Mervat Murry) H/O shoulder surgery Z98.890 History of arthroscopic knee surgery Z98.890 History of tonsillectomy Z90.89 Stented coronary artery Onset Date: 01/26/23 Z95.5 2.25 X 26 MAGEN Drug Eluting stent to mid lcx 01/26/23 Surgical History: arthroscopy, knee, cataract - Family History Summary Family History: Family History (Last Updated 11/26/22 @ 14:28 by Theron Oliver) Mother Diabetes Hypertension Heart disease Father Diabetes Hypertension Heart disease Cancer Brother Heart disease Hypertension Atrial fibrillation Obesity Grandmother AAA (abdominal aortic aneurysm) Grandfather Heart disease Grandmother Cancer Social History - Occupation Occupation (List type of work in comments):: Retired - Hobbies, Recreation, Social Activities Recreational Activities: I am able to engage in all my recreational activities Social Environment - Status Marital Status: Single - Safety Do you feel safe in your surroundings?: Yes - Assistance Do you need any assistance at home?: no Review of Systems Risk Factor Assessment - Obesity Height: 5 ft 7 in - Family History Family History: Family History (Last Updated 11/26/22 @ 14:28 by Theron Oliver) Mother Diabetes Hypertension Heart disease Father Diabetes Hypertension Heart disease Cancer Brother Heart disease Hypertension Atrial fibrillation Obesity Grandmother AAA (abdominal aortic aneurysm) Grandfather Heart disease Grandmother Cancer
== END | disposition home or self-care (01) ==
PROVIDERS: PCP Family Medicine; Referring Provider Internal Medicine Cardiovascular Disease; Visit Provider Internal Medicine Cardiovascular Disease
DX: Z00.00 Encounter for general adult medical examination without abnormal findings (principal)

== ENCOUNTER → 2023-04-11 | Outpatient (CLI) | payer MEDICARE, OTHER, SELFPAY ==
--- NOTE | 2023-04-11 14:33 | CT_ITS ---
INDICATION: OTHER CHRONIC SINUSITIS EXAMINATION: CT FACIAL BONES - CT Maxillofacial W/O Contrast Injection TECHNIQUE: Helically acquired images were obtained of the facial bones. A radiation dose optimization technique was used for this scan. IV Contrast dosage and agent: None. RADIATION DOSAGE (If Supplied By Facility): CTDIvol = ( 33.06 ) mGy, DLP = ( 804.92 ) mGycm COMPARISON: Prior study dated: May 24, 2022 FINDINGS: SOFT TISSUES: No focal subcutaneous swelling. No discrete fluid collections. VISUALIZED PARANASAL SINUSES: There is mild opacification of the ethmoid sinuses. VISUALIZED MASTOID AIR CELLS: Clear. FACIAL BONES, MANDIBLE AND TMJs: No displaced facial bone fracture. No lytic or blastic abnormality. There is nasal septal deviation left of midline associated with a septal spur. VISUALIZED DENTITION: No periodontal osseous erosion. ORBITAL CONTENTS: Both globes, extraocular muscles and retrobulbar fat appear unremarkable. CT/Sinus/Facial Bone IMPRESSION: Mild opacification of the ethmoid sinuses consistent with a history of sinusitis. Nasal septal deviation. Electronically Signed: Ana Farias MD at 15:29 EDT ,
== END | disposition home or self-care (01) ==
LOC: CT 14:32
PROVIDERS: PCP Family Medicine; Referring Provider Otolaryngology; Visit Provider Otolaryngology
DX: J32.8 Other chronic sinusitis (principal)
CPT/HCPCS: 70486

== ENCOUNTER 2023-05-05 11:30 | Outpatient (RCR) | payer MEDICARE, OTHER, SELFPAY ==
--- NOTE | 2023-04-21 12:13 | HP.PTEVAL_ITS ---
Patient's Visit Information Visit Information Visit Information: REE WYLIE is a 72 year old F referred to Physical Therapy by Dr. Ruel Peoples MD with a diagnosis of LEFT PIRIFORMIS. Date of Evaluation: 04/21/23 Physical Therapist: Laith Castellano PT, Cert MDT, OCS Visit Plan Frequency: 2x /Week Duration: 4 Weeks Plan: PT INTERVENTIONS DLS ,POSTURAL EX'S HIP STRENGTHNEING ,FLEXABLITY AND MODALTIES Subjective Subjective: This 72 y/o female presents to physical therapy with lumbar pain left sciatica to hamstrings. Patient has had these symptoms for ~ [address] sanket FERRIS. Patient has recently seen RA Dr Kuhn . Patient has RA many years and requires medication. Patient had x-rays DDD. Aggravating walking ,bending/lifting. Alleviating factors rest. Patient denies paresthesia/tingling-. Bowel/bladder-.Coughing/sneezing negative. Patient sleeping okay uses sleep pap and sleeping aid. No abnormal night pain. 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 Patient pain affects QOL and function. Patient pain goal to decrease pain. PMH: Sicca syndrome ,RA SOCAIL: VOCATION: retired Pain Left Back: Pain Intensity (Out of 10): 8 Pain Intensity Range: 10 Objective Objective: POSTURE: mild forward posture GAIT: reciprocal pattern antalgic gait mild forward SYMMTRIES: align NEURO: denies paresthesia/tingling ,reflexes L3-4,L4-5,L5-S1 1/3 MMT: quads/hams 4/5 ,hip flexion 4-/5,ankle 5/5 FLEXABILITY: hamstrings min LUMBAR ROM: min loss ,extension min loss ,side glides min loss HIP PROM: ER 50 degrees ,IR 45 degrees Special Tests L/S Slump test left side: Negative L/S Slump test right side: Negative L/S Left Straight Leg Raise: Negative L/S Right Straight Leg Raise: Negative Lumbar Standing: Flexion - Mechanical Response: No effect Lumbar Standing: Flexion - Symptoms During Testing: No effect Lumbar Standing: Flexion - Symptoms After Testing: No effect Lumbar Standing: Extension - Mechanical Response: No effect Lumbar Standing: Extension - Symptoms During Testing: Increases Lumbar Standing: Extension - Symptoms After Testing: Worse Lumbar Standing: Right Side Glides - Mechanical Response: No effect Lumbar Standing: Right Side Independence - Symptoms During Testing: No effect Lumbar Standing: Right Side Independence - Symptoms After Testing: No effect Lumbar Standing: Left Side Independence - Mechanical Response: No effect Lumbar Standing: Left Side Independence - Symptoms During Testing: No effect Lumbar Standing: Left Side Independence - Symptoms After Testing: No effect Balance/Special Test Scores Oswestry Low Back Score: 19 Goals Goal 1:: Patient to be I with HEP Goal Time Frame: 4-6 Weeks Goal 2:: Patient to demonstrate 50% improvement with improved function and less pain Goal 3:: Patient to improve lumbar ROM for function of recovery with putting on shoes Goal Time Frame: 4-6 Weeks Goal 4:: Patient to normailize gait 80% of the time. Goal Time Frame: 4-6 Weeks Goal 5:: Patient renata improve back oswestry score by 5 points to improve QOL Goal Time Frame: 4-6 Weeks Goal 6:: Patient to improve hip strength to good to improve gait Rehabilitation Potential Physical Therapy Diagnosis: Patient has possible stenosis lateral with pain worse with position and motion testing and impairs standing walking as well contributing comorbities to influence condition thus benefit from skilled PT Rehabilitation Potential: Good Anticipated Interventions Patient/Client Instruction: Educate patient on: Condition and Plan of Care For the Purpose of:: To decrease pain, To increase ROM, To improve muscle performance and motor function, To improve ability to perform ADL's, To increase tolerance to activity/condition/position, To improve ability of physical actions for home/community/work/leisure, To improve gait and locomotor functions, To improve health of tissue, To decrease soft tissue restriction, To increase flexibility/ROM, To improve safety with gait and To prevent re-injury Therapeutic Exercise to Include: Strength training, Endurance training, Dynamic Lumbar Stabilization and Scapular Strength/Stabilization Comment: BLE HIPS For the Purpose of:: To decrease pain, To improve nutrient delivery to tissue, To increase tolerance to activity/condition/position, To improve ability of physical actions for home/community/work/leisure, To improve gait and locomotor functions, To decrease soft tissue restriction, To increase flexibility/ROM, To improve endurance and To prevent re-injury TENS: Yes IF ES: Yes Cryotherapy (ice pack, ice massage): Yes Thermo therapy (hot pack): Yes Ultrasound (thermal/non thermal): Yes For the Purpose of:: To decrease pain, To increase ROM, To improve health of tissue, To decrease soft tissue restriction and To increase flexibility/ROM Text: Thank you for the opportunity to evaluate your patient. For Medicare and Medicare HMO plans, please review the plan of care and approve it. It will need to be FAXED BACK to us at [phone] for Medicare purposes. For Medicare only, by signing this I certify the plan of care. Please let me know if there are questions or concerns regarding this plan of care. Physician Signature: Date:
== END 2023-05-05 19:00 | disposition home or self-care (01) ==
LOC: PT 11:30
PROVIDERS: PCP Family Medicine; Referring Provider Family Medicine; Visit Provider Family Medicine
DX: M54.32 Sciatica, left side (principal); M54.50 Low back pain, unspecified
CPT/HCPCS: 97110; 97162

== ENCOUNTER 2023-05-10 09:39 | Emergency (ER) | payer MEDICARE, OTHER, SELFPAY ==
[2023-05-10 09:40] VITALS: BP 134/65; PULSE 72; RESP 14; TEMP 36.6; O2SAT 94
--- NOTE | 2023-05-10 09:51 | EX.ED.DYSGE1 ---
HPI History of Present Illness Chief Complaint: Dizziness [facility] Medical History Abnormal stress test Asthma Atherosclerotic heart disease of [place] coronary artery without angina pectoris First degree atrioventricular block Gout Hypertension Lyme disease Nicotine dependence in remission Obesity Other custodial (current) drug therapy Post traumatic stress disorder Rheumatoid arthritis Sinus arrhythmia Sinusitis Sjogren's disease Sleep apnea Home Medications fluticasone 500 mcg-salmeterol 50 mcg/dose blistr powdr for inhalation (Advair Diskus) 1 puff inhalation BID 01/23/15 [History Last Taken 04/17/15 05:15] fluticasone propionate 50 mcg/actuation nasal spray,suspension (Flonase) 2 spray DAILY 01/23/15 [History Last Taken Unknown] albuterol sulfate 90 mcg/actuation aerosol inhaler (ProAir HFA) 1 - 2 puff inhalation Q4H PRN PRN Asthma 04/15/15 [History Last Taken Unknown] montelukast 10 mg tablet 10 mg PO QHS 04/15/15 [History Last Taken Unknown] amlodipine 10 mg tablet 10 mg PO DAILY 05/28/15 [History Last Taken 04/05/17 07:15 10 MG] atorvastatin 20 mg tablet 20 mg PO DAILY 09/23/22 [History Last Taken Unknown] citalopram 40 mg tablet 40 mg PO DAILY 09/23/22 [History Last Taken Unknown] empagliflozin 10 mg tablet (Jardiance) 10 mg PO DAILY 09/23/22 [History Last Taken Unknown] furosemide 40 mg tablet 40 mg PO .prn 09/23/22 [History Last Taken Unknown] glipizide 5 mg tablet, extended release 24 hr 5 mg PO DAILY 09/23/22 [History Last Taken Unknown] hydrochlorothiazide 12.5 mg tablet 12.5 mg PO DAILY 09/23/22 [History Last Taken Unknown] leflunomide 20 mg tablet 20 mg PO DAILY 09/23/22 [History Last Taken Unknown] levetiracetam 750 mg tablet,extended release 24 hr 750 mg PO DAILY 09/23/22 [History Last Taken Unknown] losartan 100 mg tablet 100 mg PO DAILY 09/23/22 [History Last Taken Unknown] metformin 500 mg tablet 500 mg PO DAILY 09/23/22 [History Last Taken Unknown] ondansetron HCl 4 mg tablet 4 mg PO Q8H PRN Nausea 09/23/22 [History Last Taken Unknown] potassium chloride 20 mEq tablet,extended release 20 meq PO DAILY 09/23/22 [History Last Taken Unknown] pregabalin 75 mg capsule (Lyrica) 75 mg PO DAILY 09/23/22 [History Last Taken Unknown] quetiapine 100 mg tablet 200 mg PO DAILY 09/23/22 [History Last Taken Unknown] tiotropium bromide 2.5 mcg/actuation mist for inhalation (Spiriva Respimat) 2 puff inhalation DAILY 09/23/22 [History Last Taken Unknown] meclizine 25 mg tablet 25 mg PO BID 11/26/22 [History Last Taken Unknown] alprazolam 0.5 mg tablet 0.5 mg PO BID Anxiety 12/15/22 [History Last Taken Unknown] atomoxetine 80 mg capsule 80 mg PO DAILY 12/15/22 [History Last Taken Unknown] venlafaxine 150 mg capsule,extended release 24 hr 300 mg PO DAILY 12/15/22 [History Last Taken Unknown] aspirin 81 mg tablet,delayed release (Adult Low Dose Aspirin) 81 mg PO DAILY 01/06/23 [History Last Taken Unknown] clopidogrel 75 mg tablet (Plavix) 75 mg PO DAILY #90 tabs 02/11/23 [Rx Last Taken Unknown] ipratropium bromide 42 mcg (0.06 %) nasal spray 2 spray intranasal ONCE 02/11/23 [History Last Taken Unknown] guaifenesin 600 mg tablet, extended release 12 hr (Mucinex) 600 mg PO BID PRN 04/29/23 [History Last Taken Unknown] metoprolol tartrate 25 mg tablet 25 mg PO BID #60 tabs 04/29/23 [Rx Last Taken Unknown] prednisone 20 mg tablet 5 mg PO DAILY 04/29/23 [History Last Taken Unknown] ondansetron 4 mg disintegrating tablet 4 mg PO Q8H PRN nausea and vomiting 3 days #9 tabs 05/10/23 [Rx Last Taken Unknown] Allergy/AdvReac Type Severity Reaction Status Date / Time Sulfa (Sulfonamide Allergy Hives Verified 05/10/23 09:40 Antibiotics) tree nut Allergy Anaphylaxis Verified 05/10/23 09:40 Rabbit AdvReac Severe NEEDS Verified 05/10/23 09:40 FOLLOW-UP sulfamethoxazole AdvReac Severe Skin Verified 05/10/23 09:40 [From Bactrim] rashes & blisters trimethoprim [From Bactrim] AdvReac Severe Skin Verified 05/10/23 09:40 rashes & blisters codeine AdvReac Other Verified 05/10/23 09:40 Environmental Allergies: AdvReac NEEDS Verified 05/10/23 09:40 Uncoded FOLLOW-UP erythromycin base AdvReac Upset Verified 05/10/23 09:40 Stomach milk [dairy] AdvReac Upset Verified 05/10/23 09:40 Stomach morphine AdvReac Nausea Verified 05/10/23 09:40 oatmeal AdvReac Mild Diarrhea Uncoded 04/29/23 15:30 Family History (Reviewed 04/29/23 @ 16:25 by Barabra Beth REGISTRATION REPRESENTATIVE, REGISTRATION REPRESENTATIVE-C) Mother Diabetes Hypertension Heart disease Father Diabetes Hypertension Heart disease Cancer Brother Heart disease Hypertension Atrial fibrillation Obesity Grandmother AAA (abdominal aortic aneurysm) Grandfather Heart disease Grandmother Cancer Surgical History (Reviewed 04/29/23 @ 16:25 by Barbara Beth REGISTRATION REPRESENTATIVE, REGISTRATION REPRESENTATIVE-C) H/O shoulder surgery History of arthroscopic knee surgery History of tonsillectomy Stented coronary artery (01/26/23) Social History (Reviewed 04/29/23 @ 16:25 by Barbara Beth REGISTRATION REPRESENTATIVE, REGISTRATION REPRESENTATIVE-C) Smoking Status: Former smoker alcohol intake: former substance use type: does not use EXAM Physical Exam Const Vital Signs: 05/10/23 09:40 05/10/23 13:23 Temperature 98 F Temperature Source Temporal Pulse Rate 72 69 Respiratory Rate 14 18 Blood Pressure 134/65 H 150/91 H Blood Pressure Mean 88 110 Pulse Ox 94 98 Oxygen Delivery Method Room Air Room Air MDM MDM MDM Narrative Medical decision making narrative: HISTORY OF PRESENT ILLNESS: 72-year-old female here with dizziness and nausea after getting a carotid study done. She states she had history of this in the past however this is worse. States acute onset of dizziness is worse with head movement. Denies any incoordination, gait instability, headache, fever, neck stiffness, focal loss of sensation. Denies any chest pain. Denies any bleeding diathesis. Denies any volume loss such as vomiting or diarrhea. REVIEW OF SYSTEMS: Pertinent positives: Dizziness Pertinent negatives: Focal weakness PHYSICAL EXAM: Nursing triage notes reviewed, Vital signs reviewed Constitutional: please see mdm HENT: MMM Eyes: Pupils equal round and reactive to light, Extraocular muscles intact Neck: No stridor, no JVD, full neck ROM Lungs: Clear to auscultation, No wheezing or rales. No increased work of breathing, no conversational dyspnea, no accessory muscle use, no nasal flaring. No respiratory distress noted Heart: Regular rate and rhythm, No murmurs, No rubs and No gallops, 2+ distal pulses (radial, femoral, posterior tibial) in all extremities Abdomen: Soft, there is no tenderness, rigidity, rebound or guarding, no obvious peritoneal signs, no palpable pulsatile abdominal masses, no auscultated abdominal bruit : No CVAT Extremities: No edema Neuro: Alert and oriented x3, neuro exam at baseline, cranial nerves II through XII are intact. No pain with extraocular muscle movement. There is negative test of skew. 5 of 5 strength in upper and lower extremities in flexion extension. Intact sensation to light touch in upper and lower extremity dermatomes. No truncal or extremity ataxia. No dysdiadochokinesia. Normal gait. 2+ reflexes in upper and lower extremities. No meningeal signs. Negative Babinski. NIH of 0. Skin: No rash or lesions noted MEDICAL DECISION MAKING: Chief Complaint: Dizziness External records reviewed: Cardiac catheterization from January 2023 shows CAD status post PCI ejection fraction at that time was 60% Factors affecting care: Hypertension, hyperlipidemia, CAD ALL IMAGES (IF OBTAINED) HAVE BEEN PERSONALLY REVIEWED AND INTERPRETED BY MYSELF. EKG with normal sinus rhythm, normal axis, prolonged CA interval, first-degree AV block, no STEMI Troponin is negative, no evidence of myocardial ischemia without evidence of significant electrolyte abnormalities, no anion gap, no acute kidney injury. CBC without leukocytosis, severe anemia, no thrombocytopenia. CT of the head neck without contrast shows no evidence of vascular or intracranial injury MDM Narrative: Patient was hemodynamically stable, afebrile, nontoxic-appearing. Neurologic exam I considered the following differential diagnosis: Carotid artery abnormality such as cardiology dissection, ICH, mass, arrhythmia, anemia, electrolyte disturbance. I treated the patient symptomatically 1 L normal saline, Zofran for nausea and a small dose of benzodiazepine. CTA was negative. Labs and EKG were unremarkable for evidence of arrhythmia, anemia, severe electrolyte abnormality or myocardial ischemia. No clear etiology of his patient's symptoms. Likely peripheral vertigo. Will encourage home meclizine and home Zofran. The patient and/or family, caregivers express understanding. The patient and/or family, caregivers agrees with the plan. Shared decision making: I will have a discussion with the patient and or visitors regarding risk/benefits of further testing or admission. They will be made aware of of the risk/benefits inherent in this decision they will be given the opportunity to voice understanding. Total critical care time today provided was at least 0 minutes. This excludes separately billable procedures. Critical care time (if documented) is secondary to the patient having high probability of clinically significant/life threatening deterioration in the patient's condition which required my urgent intervention. Impression: 1. Dizziness 2. History of hyperlipidemia 3. History of CAD Dispo: discharge Lab Data Labs: Laboratory Results - last 24 hr 05/10/23 10:30 WBC 8.7 RBC 4.78 Hgb 12.0 Hct 39.1 MCV 81.8 MCH 25.1 L MCHC 30.7 L RDW Std Deviation 48.3 H RDW Coeff of Anali 16.5 H Plt Count 194 MPV 9.6 Immature Gran % (Auto) 1.500 H Neut % (Auto) 69.5 Lymph % (Auto) 12.4 L [place] % (Auto) 8.0 Eos % (Auto) 7.7 H Baso % (Auto) 0.9 Absolute Neuts (auto) 6.1 Absolute Lymphs (auto) 1.08 Nucleated RBC % 0 Sodium 141 Potassium 3.5 Chloride 109 H Carbon Dioxide 29.0 Anion Gap 3 L BUN 14 Creatinine 0.88 Est GFR (MDRD) Af Amer 81 Est GFR (MDRD) Non-Af 67 BUN/Creatinine Ratio 15.9 Glucose 186 H Calcium 8.8 Troponin I High Sens 6 Radiography Diagnostic Testing: Clinical Impression(s) from Imaging Studies Head/Neck CTA 05/10/23 10:09 IMPRESSION: Mild degree of atherosclerotic plaque formation at the carotid bifurcations bilaterally. Electronically Signed: Hung Graham MD at 12:07 EDT , Discharge Plan Triage Chief Complaint: Dizziness ED Provider: Floyd Bill Dx/Rx/DC Orders Clinical Impression: Peripheral vertigo Instructions: ED BPV Vertigo Prescriptions: New ondansetron 4 mg tablet,disintegrating 4 mg PO Q8H PRN (Reason: nausea and vomiting) 3 Days Qty: 9 0RF No Action meclizine 25 mg tablet 25 mg PO BID hydrochlorothiazide 12.5 mg tablet 12.5 mg PO DAILY citalopram 40 mg tablet 40 mg PO DAILY Patient Comments: TAKE 1 TABLET EVERY DAY levetiracetam 750 mg tablet extended release 24 hr 750 mg PO DAILY ondansetron HCl 4 mg tablet 4 mg PO Q8H PRN (Reason: Nausea) atorvastatin 20 mg tablet 20 mg PO DAILY Spiriva Respimat 2.5 mcg/actuation mist 2 puff inhalation DAILY furosemide 40 mg tablet 40 mg PO .prn potassium chloride 20 mEq tablet extended release 20 meq PO DAILY metformin 500 mg tablet 500 mg PO DAILY glipizide 5 mg tablet extended release 24hr 5 mg PO DAILY Jardiance 10 mg tablet 10 mg PO DAILY leflunomide 20 mg tablet 20 mg PO DAILY pregabalin [Lyrica] 75 mg capsule 75 mg PO DAILY guaifenesin [Mucinex] 600 mg tablet extended release 12hr 600 mg PO BID PRN atomoxetine 80 mg capsule 80 mg PO DAILY venlafaxine 150 mg capsule,extended release 24hr 300 mg PO DAILY ipratropium bromide 42 mcg (0.06 %) spray,non-aerosol 2 spray intranasal ONCE clopidogrel [Plavix] 75 mg tablet 75 mg PO DAILY Qty: 90 3RF Rx Instructions: Take 1 take 4 pills, then once a day after. prednisone 20 mg tablet 5 mg PO DAILY Rx Instructions: x5days metoprolol tartrate 25 mg tablet 25 mg PO BID Qty: 60 11RF fluticasone propion-salmeterol [Advair Diskus] 1 EACH blister with device 1 puff inhalation BID Patient Comments: INHALE 1 PUFF INSTRUCTED TWICE DAILY. RINSE AND GARGLE MOUTH WITH WATER AFTER EACH USE. fluticasone propionate [Flonase] 50 mcg/actuation patch 24 hour 2 spray NASAL DAILY Patient Comments: [id number] SUSP into both nostrils montelukast 10 MG tablet 10 mg PO QHS albuterol sulfate [ProAir HFA] 1 PUFF inhaler 1 - 2 puff inhalation Q4H PRN PRN (Reason: Asthma) losartan 100 mg tablet 100 mg PO DAILY amlodipine 10 MG tablet 10 mg PO DAILY quetiapine 100 mg tablet 200 mg PO DAILY alprazolam 0.5 mg tablet 0.5 mg PO BID Rx Instructions: Take 1 tab QAM and 2 tabs at night aspirin [Adult Low Dose Aspirin] 81 mg tablet,delayed release (DR/EC) 81 mg PO DAILY Primary Care Provider: Ruel Peoples Referrals: Ruel Peoples MD [Primary Care Provider] - Activity Restrictions/Additional Instructions: Thank you for trusting us with your care today! Please take Tylenol (2 pills, 650 mg), ibuprofen (2 pills, 400 mg) every 6 hours as needed for pain and fever control. Please take meclizine as prescribed. Please take Zofran as prescribed Please return to the emergency department if your symptoms change or worsen. Please follow with your primary care physician for further outpatient evaluation and management. Disposition Disposition: Home, Self Care Discharge Date/Time: 05/10/23 14:02
--- NOTE | 2023-05-10 10:09 | CT_ITS ---
STUDY: CTA HEAD AND NECK WITH CONTRAST REASON FOR EXAM: Female, 72 years old. dizzy after carotid manipulation r/o dissection RADIATION DOSAGE (If Supplied By Facility): CTDIvol = ( 22.17 ) mGy, DLP = ( 1707.14 ) mGycm TECHNIQUE: CT angiography was performed with a multi-detector CT scanner. Data acquisition was obtained from the skull base through the vertex following intravenous administration of IV 100mL Isovue-370. MIP images were reconstructed from the axial data set. Post-processing of the angiographic images was performed, with multiplanar reformation and 3D reconstruction. Individualized dose optimization techniques were used for this CT. COMPARISON: No relevant priors. FINDINGS: Normal bilateral petrous carotid arteries. Normal right cavernous carotid artery with a normal supraclinoid bifurcation. Normal left cavernous carotid artery with a normal supraclinoid bifurcation. Normal right A1 segments of the anterior cerebral artery. Normal left A1 segments of the anterior cerebral artery. Normal intact anterior communicating artery (ACOM). Normal bilateral A2 segments of the anterior cerebral arteries. Normal right M1 and M2 segments of the middle cerebral arteries, with a normal M1 bifurcation. Normal left M1 and M2 segments of the middle cerebral arteries, with a normal M1 bifurcation. Normal right posterior communicating artery (PCOM). There is a persistent origin of the left posterior cerebral artery with absence of the posterior communicating artery (PCOM). Normal bilateral vertebral arteries. Normal basilar artery with a normal basilar bifurcation. The visualized bilateral superior cerebellar (SCA) arteries are normal. Normal bilateral P1, P2 and visualized P3 segments of the posterior cerebral arteries. There is no demonstrated aneurysm of the [place]. Cerebral atrophy. AORTIC ARCH: There is atherosclerotic calcific plaque formation of the aortic arch and great vessels arising from the aortic arch, without a hemodynamically significant stenosis. There is a normal origin of the brachiocephalic, left common carotid, and left subclavian arteries. RIGHT CAROTID ARTERIES: Normal right common carotid artery (CCA). Normal right common carotid bulb. There is mild atherosclerotic plaque formation of the origin of the right internal carotid artery with less than 50% cross sectional diameter stenosis. Normal visualized cervical portion of the right internal carotid artery. Normal origin of the right external carotid artery (ECA). LEFT CAROTID ARTERIES: Normal left common carotid artery (CCA). Normal left common carotid bulb. There is mild atherosclerotic plaque formation of the origin of the left internal carotid artery with less than 50% cross sectional diameter stenosis. Normal visualized cervical portion of the left internal carotid artery. Normal origin of the left external carotid artery (ECA). VERTEBRAL ARTERIES: Normal bilateral vertebral arteries. Prominent venous structures seen in both orbital regions. Allergies appearance of the thyroid gland. CT/CTA Head AND Neck W/ Contrast IMPRESSION: Mild degree of atherosclerotic plaque formation at the carotid bifurcations bilaterally. Electronically Signed: Hung Graham MD at 12:07 EDT ,
--- NOTE | 2023-05-10 10:16 | EKG12_ITS ---
Test Reason : Blood Pressure : / mmHG Vent. Rate : 064 BPM Atrial Rate : 064 BPM P-R Int : 256 ms QRS Dur : 094 ms QT Int : 458 ms P-R-T Axes : 063 030 057 degrees QTc Int : 472 ms Sinus rhythm with 1st degree A-V block with Premature atrial complexes Otherwise normal ECG Confirmed by LEANDER DYE, NAV ([id number]), school photograph editor FRANCESCO NEAL ([id number]) on 05/16/2023 2:18:14 PM Referred By: Confirmed By:LEI TABOR MD
[2023-05-10] MEDS: 0.9% Normal Saline (1000mL) 1,000 ML 1000 ML IV (10:27)
[2023-05-10] MEDS: Ondansetron 4 MG/2 ML Vial IV (10:28)
[2023-05-10 10:35] LABS: Absolute Lymphocyte Count 1.08 X10^3/uL (0.83-4.51); Absolute Neutrophil Count 6.1 X10^3/uL (2.0-7.7); Basophil# 0.08 X10^3/uL; Basophil% 0.9 % (0-1); Eosinophil# 0.67 X10^3/uL; Eosinophils% 7.7 % (0-5); Hematocrit 39.1 % (37-47); Lymphocyte # 1.08 X10^3/ul (0.83-4.51); Lymphocyte % 12.4 % (19-41); Mean Corp Hgb Conc 30.7 g/dL (32-36); Mean Corpuscular Hgb 25.1 pg (27.0-32.0); Mean Corpuscular Volume 81.8 fL (81-99); Mean Platelet Vol. 9.6 fl (6.2-12.0); NRBC Flagged by Analyzer 0 % (0-5); Neutrophil # 6.06 X10^3/uL (2.7-7.7); Neutrophil % 69.5 % (47-70); Platelet Count 194 K/mm3 (150-450); RBC Distribution Width CV 16.5 % (11.6-14.6); RBC Distribution Width SD 48.3 fl (35.1-43.9); Red Blood Count 4.78 M/mm3 (4.2-5.4); White Blood Count 8.7 K/mm3 (4.4-11.0)
[2023-05-10 11:02] LABS: Anion Gap 3 (5-15); BUN 14 mg/dL (7-18); BUN/Creat Ratio 15.9 RATIO (10-20); Calcium,Total 8.8 mg/dL (8.5-10.1); Chloride 109 mmol/L (98-107); Creatinine, Serum 0.88 mg/dL (0.55-1.02); EST Glomerular Filtration Rate 67 mL/min (>60); Est Glom Filt Rate - Afr Amer 81 mL/min (>60); Glucose 186 mg/dL (74-106); Potassium 3.5 mmol/L (3.5-5.1); Sodium Level 141 mmol/L (136-145); Troponin-I HS 6 pg/mL (3.0-54.0)
[2023-05-10 13:23] VITALS: BP 150/91; PULSE 69; RESP 18; O2SAT 98; BMI 36.7
== END 2023-05-10 14:02 | disposition home or self-care (01) ==
PROVIDERS: Emergency Provider Emergency Medicine; PCP Family Medicine; Visit Provider Emergency Medicine
DX: R42 Dizziness and giddiness (principal); M06.9 Rheumatoid arthritis, unspecified; I25.10 Atherosclerotic heart disease of native coronary artery without angina pectoris; R11.0 Nausea; I10 Essential (primary) hypertension; E78.5 Hyperlipidemia, unspecified; J45.909 Unspecified asthma, uncomplicated; E66.9 Obesity, unspecified; Z79.82 Long term (current) use of aspirin; Z79.02 Long term (current) use of antithrombotics/antiplatelets; Z79.52 Long term (current) use of systemic steroids; Z79.84 Long term (current) use of oral hypoglycemic drugs; Z79.899 Other long term (current) drug therapy; Z87.891 Personal history of nicotine dependence
CPT/HCPCS: 70496; 70498; 80048; 84484; 85025; 93005; 93880; 96361; 96374; 96375; 99284; Q9967; A4216; J2405

== ENCOUNTER → 2023-05-10 | Outpatient (CLI) | payer MEDICARE, OTHER, SELFPAY ==
--- NOTE | 2023-05-10 08:46 | CDU_ITS ---
Reason For Study: Lightheadedness Rt. Velocities/BP Lt. Velocities/BP Prox CCA 82.5/15.4 cm/sec. Prox CCA 108.3/15.2 cm/sec. Mid CCA 74.9/6.9 cm/sec. Mid CCA 102.8/15.2 cm/sec. Dist CCA 69.2/17.3 cm/sec. Dist CCA 97.4/17.0 cm/sec. Prox ICA 88.1/19.2 cm/sec. Prox ICA 60.0/13.5 cm/sec. Mid ICA 49.6/13.6 cm/sec. Mid ICA 64.5/18.8 cm/sec. Dist ICA 76.8/22.0 cm/sec. Dist ICA 92.1/26.2 cm/sec. Rt. ICA/CCA = 1.2. Lt. ICA/CCA = 0.9. Prox ECA 71.1/6.9 cm/sec. Prox ECA 119.3/9.7 cm/sec. Rt. Vert. 39.0/7.8 cm/sec. Lt. Vert. 64.5/18.8 cm/sec. Right Extracranial There is homogeneous, smooth atherosclerotic plaque noted in the right common carotid artery. There is homogeneous, irregular atherosclerotic plaque noted in the right internal carotid artery. There is intimal thickening but no significant atherosclerotic plaque noted in the right external carotid artery. Antegrade flow is noted in the right vertebral artery. Left Extracranial There is homogeneous, smooth atherosclerotic plaque noted in the left common carotid artery. There is heterogeneous, irregular atherosclerotic plaque noted in the left internal carotid artery. There is intimal thickening but no significant atherosclerotic plaque noted in the left external carotid artery. Antegrade flow is noted in the left vertebral artery. Procedure Carotid Duplex 60489. This is a Carotid Duplex examination using B-mode, color flow and specral Doppler. The exam was diagnostic. The study was technically difficult. Exam performed in department. After exam patient reported dizziness, lightheaded, nauseous and appeared hot and clammy. Acquired Rt BP 145/85. Patient sat for 10 minutes and still no resolution of symptoms so I escorted her to ED for further evaluation. VL/Carotid Duplex Ultrasound Interpretation Summary Mild (<50%) stenosis right extracranial internal carotid. Mild (<50%) stenosis left extracranial internal carotid. Patent and antegrade vertebrals bilaterally. Ordering Physician: Barbara Beth Referring Physician: Perry Peoples MD Performed By: Austin Gonsalves RVT
== END | disposition home or self-care (01) ==
LOC: CVS 08:46
PROVIDERS: PCP Family Medicine; Referring Provider Nurse Practitioner Gerontology; Visit Provider Nurse Practitioner Gerontology
DX: R42 Dizziness and giddiness (principal)
CPT/HCPCS: 93880

== ENCOUNTER → 2023-05-26 | Outpatient (CLI) | payer MEDICARE, OTHER, SELFPAY ==
[2023-05-26 10:53] LABS: AST(SGOT) 17 U/L (15-37); Alanine Aminotransfer ALT/SGPT 26 U/L (13-56); Albumin, Serum 3.2 g/dL (3.2-5.0); Alkaline Phosphatase 79 U/L (45-117); Bilirubin, Direct 0.18 mg/dL (0.00-0.30); Cholesterol 102 mg/dL (200); Globulin 3.7 g/dL (2.2-4.2); High Density Lipoprotein 53 mg/dL; Protein, Total 6.9 g/dL (6.4-8.2); Triglycerides 147 mg/dL; Very Low Density Lipoprotein 29 mg/dL (5-40)
== END | disposition home or self-care (01) ==
PROVIDERS: PCP Family Medicine; Visit Provider Nurse Practitioner Gerontology
DX: E78.5 Hyperlipidemia, unspecified (principal)
CPT/HCPCS: 36415; 80061; 80076

== ENCOUNTER → 2023-06-01 | Outpatient (CLI) | payer MEDICARE, OTHER, SELFPAY ==
--- NOTE | 2023-06-01 17:15 | RAD_ITS ---
INDICATION: toe pain EXAMINATION/TECHNIQUE: X-RAY - RIGHT FOOT XR Toes Min 2 Views 3 VIEWS COMPARISON: No relevant prior comparison study available FINDINGS: Previous resection of the second phalanx. 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 Small marginal osteophytes of the first metatarsophalangeal joint. Soft tissues unremarkable. RAD/Toe(s) Min 2 Views IMPRESSION: No fracture or malalignment. Electronically Signed: Han Baird MD at 17:56 EDT ,
== END | disposition home or self-care (01) ==
PROVIDERS: PCP Family Medicine; Referring Provider Family Medicine; Visit Provider Family Medicine
DX: S99.929A Unspecified injury of unspecified foot, initial encounter (principal); X58.XXXA Exposure to other specified factors, initial encounter
CPT/HCPCS: 73660

== ENCOUNTER → 2023-07-12 | Outpatient (CLI) | payer MEDICARE, OTHER, SELFPAY ==
[2023-07-12 15:54] LABS: Absolute Lymphocyte Count 1.29 X10^3/uL (0.83-4.51); Absolute Neutrophil Count 5.5 X10^3/uL (2.0-7.7); Basophil# 0.08 X10^3/uL; Eosinophil# 0.49 X10^3/uL; Hematocrit 41.8 % (37-47); Hemoglobin 12.5 g/dL (12.0-15.0); Lymphocyte # 1.29 X10^3/ul (0.83-4.51); Lymphocyte % 15.8 % (19-41); Mean Corp Hgb Conc 29.9 g/dL (32-36); Mean Corpuscular Hgb 24.5 pg (27.0-32.0); Mean Platelet Vol. 9.7 fl (6.2-12.0); Monocyte# 0.69 X10^3/uL; Monocyte% 8.4 % (0-10); NRBC Flagged by Analyzer 0 % (0-5); Neutrophil # 5.51 X10^3/uL (2.7-7.7); Neutrophil % 67.2 % (47-70); Platelet Count 270 K/mm3 (150-450); RBC Distribution Width CV 16.7 % (11.6-14.6); RBC Distribution Width SD 49.6 fl (35.1-43.9); White Blood Count 8.2 K/mm3 (4.4-11.0)
[2023-07-12 16:05] LABS: Prothrombin Time (Protime)PT. 13.3 SECONDS (11.7-14.9)
[2023-07-12 16:06] LABS: Partial Thromboplast Time 26.6 Seconds (24.1-36.2)
[2023-07-12 16:42] LABS: Anion Gap 8 (5-15); BUN 17 mg/dL (7-18); BUN/Creat Ratio 19.6 RATIO (10-20); Calcium,Total 9.3 mg/dL (8.5-10.1); Chloride 107 mmol/L (98-107); Creatinine, Serum 0.87 mg/dL (0.55-1.02); EST Glomerular Filtration Rate 68 mL/min (>60); Est Glom Filt Rate - Afr Amer 83 mL/min (>60); Glucose 156 mg/dL (74-106); Potassium 3.9 mmol/L (3.5-5.1); Sodium Level 139 mmol/L (136-145)
[2023-07-12 16:58] LABS: Vitamin D,25 Hydroxy 36.7 ng/mL
== END | disposition home or self-care (01) ==
LOC: MFPLAB 12:14
PROVIDERS: PCP Family Medicine; Visit Provider Family Medicine
DX: Z01.818 Encounter for other preprocedural examination (principal); E55.9 Vitamin D deficiency, unspecified; I25.10 Atherosclerotic heart disease of native coronary artery without angina pectoris
CPT/HCPCS: 36415; 80048; 82306; 85025; 85610; 85730

== ENCOUNTER 2023-10-12 13:17 | Inpatient (IN) | payer MEDICARE, OTHER, SELFPAY ==
[2023-10-12] VITALS (11 sets, daily range): BP systolic 99–130; BP diastolic 62–78; PULSE 78–151; RESP 16–23; TEMP 35.6–36.5; O2SAT 94–97; BMI 32.1; BMI 31.3
--- NOTE | 2023-10-12 13:52 | CT_ITS ---
STUDY: CT BRAIN WITHOUT CONTRAST REASON FOR EXAM: Female, 73 years old. Head injury RADIATION DOSAGE (If Supplied By Facility): CTDIvol = ( 44.99 ) mGy, DLP = ( 779.24 ) mGycm TECHNIQUE: Transaxial CT imaging of the brain was performed without administration of intravenous contrast material. Individualized dose optimization techniques were used for this CT. COMPARISON: Comparison is made with prior study May 10, 2023. FINDINGS: Normal soft tissue structures. Normal calvarium. There is mild cerebral atrophy with widening of the extra-axial spaces and ventricular dilatation. There are areas of decreased attenuation within the white matter tracts of the supratentorial brain, consistent with microvascular disease changes. Normal basal ganglia and thalami. Normal brainstem. Normal cerebellum. There is no intracranial hemorrhage. There are no findings of an acute ischemic infarction. Catastrophic calcification of the cavernous portions of the internal carotid arteries bilaterally. Mucosal thickening at the base of the right maxillary sinus. CT/Brain/Head without Contrast IMPRESSION: Chronic involutional changes of the brain. Electronically Signed: Hung Graham MD at 14:42 EST ,
--- NOTE | 2023-10-12 13:53 | EKG12_ITS ---
Test Reason : Blood Pressure : / mmHG Vent. Rate : 103 BPM Atrial Rate : 103 BPM P-R Int : 226 ms QRS Dur : 088 ms QT Int : 360 ms P-R-T Axes : 072 000 066 degrees QTc Int : 471 ms Sinus tachycardia with 1st degree A-V block with Premature supraventricular complexes Low voltage QRS Borderline ECG Confirmed by HAI DYE, MARGIE ([id number]), production editor TAL LEMUS ([id number]) on 10/14/2023 10:49:25 AM Referred By: Confirmed By:MARGIE VALLES MD
--- NOTE | 2023-10-12 13:55 | CT_ITS ---
STUDY: CT CERVICAL SPINE WITHOUT CONTRAST REASON FOR EXAM: Female, 73 years old. Injury/Pain RADIATION DOSAGE (If Supplied By Facility): CTDIvol = ( 27.47 ) mGy, DLP = ( 571.09 ) mGycm TECHNIQUE: High resolution transaxial imaging was performed without contrast material. Sagittal and coronal images were reconstructed. Individualized dose optimization techniques were used for this CT. COMPARISON: None FINDINGS: Normal craniovertebral junction. There are degenerative changes of the anterior atlantoaxial articulation. Normal odontoid process. Normal cervical lordosis. Normal vertebral bodies and posterior osseous elements. C2-3: Normal endplates. Normal disc height and morphology. Normal central canal and intervertebral neuroforamina. C3-4: Mild degree of disc space narrowing. Uncovertebral arthrosis. Bilateral neural foraminal stenosis worse on the right side. C4-5: Mild degree of disc space narrowing. No significant stenosis is seen. C5-6: Disc space narrowing. Spondylosis. No significant stenosis seen. C6-7: Normal endplates. Normal disc height and morphology. Normal central canal and intervertebral neuroforamina. C7-T1: Normal endplates. Normal disc height and morphology. Normal central canal and intervertebral neuroforamina. Normal visualized soft tissue structures. CT/Spine Cervical without Contras IMPRESSION: Multilevel degenerative changes, as described above. Electronically Signed: Hung Graham MD at 14:43 EST ,
[2023-10-12] MEDS: Diphth,Pertuss(Acell),Tet Vac 0.5 ML Vial IM (14:04)
[2023-10-12] MEDS: fentaNYL 100 MCG/2 ML Ampul 50 MCG IV ×2 (14:05→15:54)
[2023-10-12] MEDS: 0.9% Normal Saline (1000mL) 1,000 ML 1000 ML IV ×2 (14:06→16:17)
--- NOTE | 2023-10-12 14:13 | EDS_ITS ---
HPI HPI - Fall History of Present Illness Chief Complaint: Fall Informant: patient Occured/Mechanism Occurred: Days (2) Mechanism/Context: Yes same level fall and Yes trip Pain/Injury Pain Location: head, upper extremity (Right shoulder, right elbow) and lower extremity (Right knee) Worsened by: Nothing Relieved by: Nothing Associated Symptoms Associated Symptoms: Positive for Weakness; Negative for Parasthesias or Loss of consciousness Narrative Narrative: Patient presents after a fall that occurred 2 days ago. Patient thinks she tripped and fell. Patient states she hit her head. Patient complains of pain in her right shoulder and right knee. Patient describes the pain as sharp, aching, and stabbing. Patient states nothing makes her pain better and nothing makes it worse. Patient does not think she had a loss of consciousness. Patient did bite her tongue when she fell. Patient states her last tetanus was more than 10 years ago. Patient denies any chest pain or shortness of breath. Patient admits to some urinary frequency but denies any dysuria or hematuria. Patient admits to a fever. Tetanus Immunization: >10 years [facility] Medical History Abnormal stress test Ambulates with cane Anxiety Arthritis Asthma Atherosclerotic heart disease of [place] coronary artery without angina pectoris Blackout Cardiology follow-up encounter Cataract (lens) fragments in eye following cataract surgery, bilateral CPAP (continuous positive airway pressure) dependence Depression Diabetes Dietary restriction Easy bruising First degree atrioventricular block Gout High cholesterol History of echocardiogram History of edema History of steroid therapy History of stress test Hypertension Lyme disease MRSA infection Nicotine dependence in remission Non-smoker Obesity Osteoarthritis Other shelter (current) drug therapy Post traumatic stress disorder Post-menopausal Restless legs Rheumatoid arthritis Seizures Sinus arrhythmia Sinusitis Sjogren's disease Sleep apnea Walker as ambulation aid Home Medications fluticasone 500 mcg-salmeterol 50 mcg/dose blistr powdr for inhalation (Advair Diskus) 1 puff inhalation BID 01/23/15 [History Last Taken 04/17/15 05:15] fluticasone propionate 50 mcg/actuation nasal spray,suspension (Flonase) 2 spray DAILY 01/23/15 [History Last Taken Unknown] albuterol sulfate 90 mcg/actuation aerosol inhaler (ProAir HFA) 1 - 2 puff inhalation Q4H PRN PRN Asthma 04/15/15 [History Last Taken Unknown] montelukast 10 mg tablet 10 mg PO QHS 04/15/15 [History Last Taken Unknown] amlodipine 10 mg tablet 10 mg PO DAILY 05/28/15 [History Last Taken 04/05/17 07:15 10 MG] atorvastatin 20 mg tablet 20 mg PO DAILY 09/23/22 [History Last Taken Unknown] citalopram 40 mg tablet 40 mg PO DAILY 09/23/22 [History Last Taken Unknown] empagliflozin 10 mg tablet (Jardiance) 10 mg PO DAILY 09/23/22 [History Last Taken Unknown] glipizide 5 mg tablet, extended release 24 hr 5 mg PO DAILY 09/23/22 [History Last Taken Unknown] hydrochlorothiazide 12.5 mg tablet 12.5 mg PO DAILY 09/23/22 [History Last Taken Unknown] leflunomide 20 mg tablet 20 mg PO DAILY 09/23/22 [History Last Taken Unknown] levetiracetam 750 mg tablet,extended release 24 hr 750 mg PO DAILY 09/23/22 [History Last Taken Unknown] losartan 100 mg tablet 100 mg PO DAILY 09/23/22 [History Last Taken Unknown] metformin 500 mg tablet 500 mg PO DAILY 09/23/22 [History Last Taken Unknown] ondansetron HCl 4 mg tablet 4 mg PO Q8H PRN Nausea 09/23/22 [History Last Taken Unknown] potassium chloride 20 mEq tablet,extended release 20 meq PO DAILY 09/23/22 [History Last Taken Unknown] pregabalin 75 mg capsule (Lyrica) 75 mg PO DAILY 09/23/22 [History Last Taken Unknown] quetiapine 100 mg tablet 200 mg PO DAILY 09/23/22 [History Last Taken Unknown] tiotropium bromide 2.5 mcg/actuation mist for inhalation (Spiriva Respimat) 2 puff inhalation DAILY 09/23/22 [History Last Taken Unknown] meclizine 25 mg tablet 25 mg PO BID 11/26/22 [History Last Taken Unknown] alprazolam 0.5 mg tablet 0.5 mg PO BID Anxiety 12/15/22 [History Last Taken Unknown] atomoxetine 80 mg capsule 80 mg PO DAILY 12/15/22 [History Last Taken Unknown] venlafaxine 150 mg capsule,extended release 24 hr 300 mg PO DAILY 12/15/22 [History Last Taken Unknown] aspirin 81 mg tablet,delayed release (Adult Low Dose Aspirin) 81 mg PO DAILY 01/06/23 [History Last Taken Unknown] clopidogrel 75 mg tablet (Plavix) 75 mg PO DAILY #90 tabs 02/11/23 [Rx Last Taken Unknown] guaifenesin 600 mg tablet, extended release 12 hr (Mucinex) 600 mg PO BID PRN congestion 04/29/23 [History Last Taken Unknown] metoprolol tartrate 25 mg tablet 25 mg PO BID #60 tabs 04/29/23 [Rx Last Taken Unknown] prednisone 20 mg tablet 5 mg PO DAILY PRN pain 04/29/23 [History Last Taken Unknown] furosemide 40 mg tablet 40 mg PO DAILY PRN edema #30 tabs 06/24/23 [Rx Last Taken Unknown] Allergy/AdvReac Type Severity Reaction Status Date / Time Sulfa (Sulfonamide Allergy Hives Verified 10/12/23 13:26 Antibiotics) tree nut Allergy Anaphylaxis Verified 10/12/23 13:26 Rabbit AdvReac Severe NEEDS Verified 10/12/23 13:26 FOLLOW-UP sulfamethoxazole AdvReac Severe Skin Verified 10/12/23 13:26 [From Bactrim] rashes & blisters trimethoprim [From Bactrim] AdvReac Severe Skin Verified 10/12/23 13:26 rashes & blisters codeine AdvReac Other Verified 10/12/23 13:26 Environmental Allergies: AdvReac NEEDS Verified 10/12/23 13:26 Uncoded FOLLOW-UP erythromycin base AdvReac Upset Verified 10/12/23 13:26 Stomach milk [dairy] AdvReac Upset Verified 10/12/23 13:26 Stomach morphine AdvReac Nausea Verified 10/12/23 13:26 Family History Mother Diabetes Hypertension Heart disease Father Diabetes Hypertension Heart disease Cancer Brother Heart disease Hypertension Atrial fibrillation Obesity Grandmother AAA (abdominal aortic aneurysm) Grandfather Heart disease Grandmother Cancer Surgical History H/O shoulder surgery History of amputation of toe History of arthroscopic knee surgery History of cardiac catheterization History of coronary artery stent placement History of knee replacement History of shoulder replacement History of tonsillectomy Stented coronary artery (01/26/23) Social History Smoking Status: Never smoker alcohol intake: former substance use type: does not use ROS ROS ED Constitutional Constitutional ED: Reports fever(s); Denies chills Eyes Eyes: Denies blurry vision or change in vision ENT ENT ED: Reports sore throat; Denies rhinorrhea Cardiovascular Cardiovascular: Denies chest pain or palpitations Respiratory/Chest Respiratory/Chest: Denies cough or dyspnea Gastrointestinal Gastrointestinal: Denies nausea or vomiting Genitourinary Genitourinary ED: Reports urinary frequency; Denies dysuria or hematuria Musculoskeletal Musculoskeletal: Reports back pain; Denies neck pain Integumentary Denies abscess or rash Neurologic Neurologic: Reports headache(s); Denies weakness Allergic/Immunologic Allergic/Immunologic ED: Denies mouth swelling or urticaria EXAM Physical Exam Const Vital Signs: 10/12/23 13:26 10/12/23 13:39 Temperature 96.0 F L Temperature Source Temporal Pulse Rate 151 H Respiratory Rate 23 H Respiratory Effort Normal Non-Labored Respiratory Depth Normal Respiratory Pattern Normal Blood Pressure 99/73 Blood Pressure Mean 81 Pulse Ox 95 Oxygen Delivery Method Room Air Room Air Positive well nourished and well developed General Appearance ED: well developed HEENT HEENT Narrative: Oral mucosa was dry. There is some ecchymosis of the anterior tongue. atraumatic; Negative for tenderness Eyes PERRL and EOMs intact bilaterally Neck supple Chest Wall palpation of chest normal Resp normal respiratory effort and clear to auscultation bilaterally Cardio regular rate Rhythm: abnormal rhythm ectopic beats GI non-tender and non-distended Palpation: soft Extremity Extremity Narrative: There is tenderness, edema, and ecchymosis over the right shoulder. There is tenderness over the right elbow. There is also some tenderness, mild edema, and mild ecchymosis over the right knee. There is no deformity noted. Range of motion was limited in all motions of the right shoulder, right elbow, and right knee secondary to pain. Sensation is intact to light touch bilaterally in the upper and lower extremities. Radial and pedal pulses are equal bilaterally. Strength is 5/5 bilateral in the upper and lower extremities. Neuro CN's II-XII intact bilaterally [place]ona Coma Scale: document GCS findings Spontaneous Obeys Commands Confused 14 Sensorium / Orientation: alert, oriented to person and oriented to time Motor Exam: general weakness MDM MDM MDM Narrative Medical decision making narrative: Differential diagnosis includes intracranial bleeding, stroke, cardiac dysrhythmia, cardiac ischemia, electrolyte abnormality, dehydration, rhabdomyolysis, urinary tract infection, coagulopathy, proximal humerus fracture, elbow fracture, knee fracture, and contusions. EKG will be obtained to assess for cardiac dysrhythmia and cardiac ischemia. CT scan of the brain will be obtained to assess for intracranial bleeding and stroke. CT scan of the cervical spine will be obtained to assess for cervical spine fracture. X-rays of the right shoulder and right elbow will be obtained to assess for fracture or dislocation. X-rays of the right knee will be obtained to assess for fracture or dislocation. CBC will be obtained to assess for leukocytosis and anemia. Comprehensive metabolic profile will be obtained to assess for hepatic function, renal function, and electrolyte abnormality. PT with INR and PTT will be obtained to assess for coagulopathy. Serum lactate will be obtained to assess for sepsis. High-sensitivity troponin will be obtained to assess for cardiac ischemia. Urinalysis will be obtained to assess for urinary tract infection and hematuria. Total CPK will be obtained to assess for rhabdomyolysis. Lab Data Attestation: I reviewed the patient's lab results. Lab results narrative: CBC was reviewed. There is a leukocytosis of 17.4. Hemoglobin was 15.1 hematocrit was 48.3. Platelets were normal. PT was INR and PTT were reviewed. Pro time was 22.4 and INR is 1.9. PTT was normal. Comprehensive metabolic profile was reviewed. Sodium was elevated at 150 and chloride was elevated at 117. BUN was 137 and creatinine was 3.05. Glucose was elevated at 319. Anion gap was normal. Alkaline phosphatase was slightly elevated at 156. AST was slightly elevated at 52. ALT was normal. Total bilirubin was normal. High- sensitivity troponin was reviewed and was slightly elevated at 60. Labs: Laboratory Results - last 24 hr 10/12/23 14:45 WBC 17.4 H RBC 6.02 H Hgb 15.1 H Hct 48.3 H MCV 80.2 L MCH 25.1 L MCHC 31.3 L RDW Std Deviation 50.1 H RDW Coeff of Anali 18.6 H Plt Count 372 MPV 11.4 Immature Gran % (Auto) 0.700 Neut % (Auto) 84.5 H Lymph % (Auto) 5.9 L [place] % (Auto) 8.5 Eos % (Auto) 0.2 Baso % (Auto) 0.2 Absolute Neuts (auto) 14.7 H Absolute Lymphs (auto) 1.02 Nucleated RBC % 0 PT 22.4 H INR 1.9 APTT 32.8 Sodium 150 H Potassium 3.5 Chloride 117 H Carbon Dioxide 22.0 Anion Gap 11 BUN 137 H* Creatinine 3.05 H Estim Creat Clear Calc 18.22 Est GFR (MDRD) Af Amer 19 L Est GFR (MDRD) Non-Af 16 L BUN/Creatinine Ratio 44.9 H Glucose 319 H Lactic Acid 3.4 H* Calcium 10.4 H Total Bilirubin 0.80 AST 52 H ALT 29 Alkaline Phosphatase 156 H Troponin I High Sens 60 H Total Protein 7.9 Albumin 2.6 L Globulin 5.3 H Albumin/Globulin Ratio 0.5 L Radiography Diagnostic Testing: Clinical Impression(s) from Imaging Studies Brain CT 10/12/23 13:52 IMPRESSION: Chronic involutional changes of the brain. Electronically Signed: Hung Graham MD at 14:42 EST , Cervical Spine CT 10/12/23 13:55 IMPRESSION: Multilevel degenerative changes, as described above. Electronically Signed: Hung Graham MD at 14:43 EST , Elbow X-Ray 10/12/23 14:20 IMPRESSION: Arthrosis of the elbow, as described above. Electronically Signed: Hung Graham MD at 14:46 EST , Knee X-Ray 10/12/23 14:20 IMPRESSION: Status post total knee replacement. There is good alignment. Electronically Signed: Hung Graham MD at 14:45 EST , Shoulder X-Ray 10/12/23 14:20 IMPRESSION: Impacted fracture of the proximal surgical neck of the humerus with extension to the greater and lesser tuberosities. Cephalic and anterior migration of the distal fracture fragment. Electronically Signed: Hung Graham MD at 14:45 EST , CT scan of the brain was obtained. There is no acute intracranial abnormality. There are chronic involutional changes noted. This was interpreted by the radiologist and was also independently reviewed by myself. CT scan of the cervical spine was obtained. There are degenerative changes. There is no acute fracture or spondylolisthesis noted. This was interpreted by the radiologist and was also independently reviewed by myself. X-rays of the right elbow were obtained. There are 3 views. On my independent interpretation, there are some degenerative changes noted. There is no acute fracture noted. There is no dislocation noted. Radiologist also interpreted the x-rays and agrees. X-rays of the right knee were obtained. There are 4 views. On my independent interpretation, there is no acute fracture. There is a prior total knee replacement. Prosthetic parts were in normal position. Radiologist also interpreted the x-rays and agrees. X-rays of the right shoulder were obtained. There is an impacted fracture of the proximal surgical neck. There is some anterior superior displacement of the distal fragment. Radiologist also interpreted the x-rays and agrees. EKG Initial EKG: Attestation: I personally reviewed and interpreted this EKG as follows: Interpretation: Sinus Rhythm (With first-degree AV block with frequent PACs with a rate of 103) and No Acute Injury Pattern Comments: EKG was obtained. On my independent interpretation, it shows sinus tachycardia with frequent PACs. And first-degree AV block with a rate of 103. ME interval was prolonged at 226 ms. QRS interval was normal at 88 ms. QTc interval was normal at 471 ms. [place] was normal at 0. There are no acute ST or T wave changes noted. Prior EKG tracings: available for review Prior: Unchanged (05/10/2023) Treatment and Re-Evaluation Narrative: Patient was given IV fluids. Patient was given a dose of fentanyl for pain. Patient was given a tetanus booster. Patient was advised of her findings. Patient was advised of the need for hospitalization. Patient is agreeable with this. Patient's blood pressure improved to 111/66. Patient's heart rate improved to 108. Case was discussed with the hospitalist. She will admit the patient to PCU. Patient understands and is agreeable with the plan. All questions were answered. Discharge Plan Triage Chief Complaint: Fall ED Provider: Cesar Palencia Dx/Rx/DC Orders Clinical Impression: Acute kidney injury, Fracture of proximal end of right humerus, Hypernatremia, Leukocytosis, Rhabdomyolysis, Fall Prescriptions: No Action meclizine 25 mg tablet 25 mg PO BID hydrochlorothiazide 12.5 mg tablet 12.5 mg PO DAILY citalopram 40 mg tablet 40 mg PO DAILY Patient Comments: TAKE 1 TABLET EVERY DAY levetiracetam 750 mg tablet extended release 24 hr 750 mg PO DAILY ondansetron HCl 4 mg tablet 4 mg PO Q8H PRN (Reason: Nausea) atorvastatin 20 mg tablet 20 mg PO DAILY Spiriva Respimat 2.5 mcg/actuation mist 2 puff inhalation DAILY potassium chloride 20 mEq tablet extended release 20 meq PO DAILY metformin 500 mg tablet 500 mg PO DAILY glipizide 5 mg tablet extended release 24hr 5 mg PO DAILY Jardiance 10 mg tablet 10 mg PO DAILY leflunomide 20 mg tablet 20 mg PO DAILY pregabalin [Lyrica] 75 mg capsule 75 mg PO DAILY guaifenesin [Mucinex] 600 mg tablet extended release 12hr 600 mg PO BID PRN (Reason: congestion) atomoxetine 80 mg capsule 80 mg PO DAILY venlafaxine 150 mg capsule,extended release 24hr 300 mg PO DAILY clopidogrel [Plavix] 75 mg tablet 75 mg PO DAILY Qty: 90 3RF Rx Instructions: Take 1 take 4 pills, then once a day after. prednisone 20 mg tablet 5 mg PO DAILY PRN (Reason: pain) Rx Instructions: x5days metoprolol tartrate 25 mg tablet 25 mg PO BID Qty: 60 11RF fluticasone propion-salmeterol [Advair Diskus] 1 EACH blister with device 1 puff inhalation BID Patient Comments: INHALE 1 PUFF INSTRUCTED TWICE DAILY. RINSE AND GARGLE MOUTH WITH WATER AFTER EACH USE. fluticasone propionate [Flonase] 50 mcg/actuation patch 24 hour 2 spray NASAL DAILY Patient Comments: [id number] SUSP into both nostrils montelukast 10 MG tablet 10 mg PO QHS albuterol sulfate [ProAir HFA] 1 PUFF inhaler 1 - 2 puff inhalation Q4H PRN PRN (Reason: Asthma) losartan 100 mg tablet 100 mg PO DAILY amlodipine 10 MG tablet 10 mg PO DAILY quetiapine 100 mg tablet 200 mg PO DAILY alprazolam 0.5 mg tablet 0.5 mg PO BID Rx Instructions: Take 1 tab QAM and 2 tabs at night aspirin [Adult Low Dose Aspirin] 81 mg tablet,delayed release (DR/EC) 81 mg PO DAILY furosemide 40 mg tablet 40 mg PO DAILY PRN (Reason: edema) Qty: 30 11RF Primary Care Provider: Ruel Peoples Referrals: Ruel Peoples MD [Primary Care Provider] - Disposition Disposition: Acute Care [facility]
--- NOTE | 2023-10-12 14:20 | RAD_ITS ---
STUDY: X-RAY - RIGHT ELBOW REASON FOR EXAM: Female, 73 years old. Injury/Pain TECHNIQUE: 3 view(s) of the elbow. COMPARISON: Comparison is made with prior study dated May 25, 2022. FINDINGS: Normal visualized humerus, radius and ulna. There is degenerative arthrosis of the radiocapitellar and ulnotrochlear articulations. The soft tissue structures are unremarkable. RAD/Elbow min 3 Views IMPRESSION: Arthrosis of the elbow, as described above. Electronically Signed: Hung Graham MD at 14:46 EST ,
--- NOTE | 2023-10-12 14:20 | RAD_ITS ---
STUDY: X-RAY - RIGHT KNEE REASON FOR EXAM: Female, 73 years old. Injury/Pain TECHNIQUE: 4 view(s) of the knee. COMPARISON: Comparison is made with prior study dated May 10, 2017. FINDINGS: Normal visualized distal femur. Normal visualized proximal tibia and fibula. Normal proximal tibiofibular articulation. The patient is status post total knee replacement. There is good alignment. There are atherosclerotic calcifications. RAD/Knee 4 or More Views IMPRESSION: Status post total knee replacement. There is good alignment. Electronically Signed: Hung Graham MD at 14:45 EST ,
--- NOTE | 2023-10-12 14:20 | RAD_ITS ---
STUDY: X-RAY - RIGHT SHOULDER REASON FOR EXAM: Female, 73 years old. Injury/Pain TECHNIQUE: 2 view(s) of the shoulder. COMPARISON: None. FINDINGS: There is severe degenerative arthrosis of the glenohumeral articulation. There is degenerative arthrosis of the acromioclavicular joint without inferior osseous spur formation. Normal acromion. Impacted fracture of the surgical neck of the humerus with extension to the greater and lesser tuberosities. There is cephalic and anterior subluxation of the distal fracture fragment. Soft tissue swelling. Normal visualized pulmonary apex. RAD/Shoulder min 2 Views IMPRESSION: Impacted fracture of the proximal surgical neck of the humerus with extension to the greater and lesser tuberosities. Cephalic and anterior migration of the distal fracture fragment. Electronically Signed: Hung Graham MD at 14:45 EST ,
[2023-10-12 14:58] LABS: Absolute Lymphocyte Count 1.02 X10^3/uL (0.83-4.51); Absolute Neutrophil Count 14.7 X10^3/uL (2.0-7.7); Basophil# 0.03 X10^3/uL; Basophil% 0.2 % (0-1); Eosinophil# 0.04 X10^3/uL; Eosinophils% 0.2 % (0-5); Hematocrit 48.3 % (37-47); Hemoglobin 15.1 g/dL (12.0-15.0); Lymphocyte # 1.02 X10^3/ul (0.83-4.51); Lymphocyte % 5.9 % (19-41); Mean Corp Hgb Conc 31.3 g/dL (32-36); Mean Corpuscular Hgb 25.1 pg (27.0-32.0); Mean Corpuscular Volume 80.2 fL (81-99); Mean Platelet Vol. 11.4 fl (6.2-12.0); Monocyte# 1.48 X10^3/uL; Monocyte% 8.5 % (0-10); NRBC Flagged by Analyzer 0 % (0-5); Neutrophil # 14.68 X10^3/uL (2.7-7.7); Neutrophil % 84.5 % (47-70); Platelet Count 372 K/mm3 (150-450); RBC Distribution Width CV 18.6 % (11.6-14.6); RBC Distribution Width SD 50.1 fl (35.1-43.9); Red Blood Count 6.02 M/mm3 (4.2-5.4); White Blood Count 17.4 K/mm3 (4.4-11.0)
[2023-10-12 15:05] LABS: International Normalized Ratio 1.9; Prothrombin Time (Protime)PT. 22.4 SECONDS (11.7-14.9)
[2023-10-12 15:06] LABS: Partial Thromboplast Time 32.8 Seconds (24.1-36.2)
[2023-10-12 15:28] LABS: ALB/GLOB Ratio 0.5 RATIO (0.9-2.4); AST(SGOT) 52 U/L (15-37); Alanine Aminotransfer ALT/SGPT 29 U/L (13-56); Albumin, Serum 2.6 g/dL (3.2-5.0); Alkaline Phosphatase 156 U/L (45-117); Anion Gap 11 (5-15); BUN 137 mg/dL (7-18); BUN/Creat Ratio 44.9 RATIO (10-20); Calcium,Total 10.4 mg/dL (8.5-10.1); Chloride 117 mmol/L (98-107); Creatinine, Serum 3.05 mg/dL (0.55-1.02); EST Glomerular Filtration Rate 16 mL/min (>60); Est Glom Filt Rate - Afr Amer 19 mL/min (>60); Estimated Creatinine Clearance 18.22 ml/min; Globulin 5.3 g/dL (2.2-4.2); Glucose 319 mg/dL (74-106); Potassium 3.5 mmol/L (3.5-5.1); Protein, Total 7.9 g/dL (6.4-8.2); Sodium Level 150 mmol/L (136-145); Troponin-I HS 60 pg/mL (3.0-54.0)
[2023-10-12 15:29] LABS: Lactic Acid 3.4 mmol/L (0.4-1.9)
--- NOTE | 2023-10-12 15:30 | ED.RN ---
LAB CALLED LACTIC OF 3.4, BUN 137. DR KIM
[2023-10-12 16:08] LABS: CPK Total, Creatine Kinase 981 U/L (26-192)
[2023-10-12 16:27] LABS: Bacteria 0 SEEN /hpf (None Seen); Mucous, Urine 0 SEEN /hpf (<or=2+)
--- NOTE | 2023-10-12 16:33 | PCM.HP.STD ---
HPI - General General Date of Admission: 10/12/23 Date of Service: 10/12/23 Chief Complaint: Fall and R arm pain HPI Narrative REE WYLIE, is a 73-year-old female with history of hypertension, SANTHOSH, diabetes, CAD w/ hx stents, asthma, RA, seizure disorder, mood disorder presented to [facility] ED 10/12/2023 with generalized weakness after a fall that occurred 2 days ago. Thinks she tripped and fell and that she hit her head and also complained of right shoulder and knee pain that is combination of sharp, aching, stabbing and nothing makes it better or worse. Does not think she had loss of consciousness. Some urinary frequency but no dysuria and has felt feverish. In the ED she was found to have right impacted fracture of proximal surgical neck of humerus with extension to greater and lesser tuberosities and cephalic and anterior migration of distal fracture fragment on x-ray. Also found of white blood cell count of 17.4 and hemoglobin 15.1. CMP revealed sodium of 150 with a BUN of 137 and creatinine of 3.05. Trop 60 and LA 3.4. Heart rate on arrival 151 with blood pressure 99/73 and respiratory rate 23. Heart rate improved to low 100s with blood pressure also improving but given patient's multiple findings hospitalist contacted for admission. Patient evaluated at bedside but is poor historian, says she does not remember what happens when she fell 2 days ago but has been down since, presently reports some right arm pain but denies pain anywhere else, reports dry mouth but otherwise fairly unreliable historian [facility] Medical History Abnormal stress test Ambulates with cane Anxiety Arthritis Asthma Atherosclerotic heart disease of [place] coronary artery without angina pectoris [facility] Cardiology follow-up encounter Cataract (lens) fragments in eye following cataract surgery, bilateral CPAP (continuous positive airway pressure) dependence Depression Diabetes Dietary restriction Easy bruising First degree atrioventricular block Gout High cholesterol History of echocardiogram History of edema History of steroid therapy History of stress test Hypertension Lyme disease MRSA infection Nicotine dependence in remission Non-smoker Obesity Osteoarthritis 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 Post traumatic stress disorder Post-menopausal Restless legs Rheumatoid arthritis Seizures Sinus arrhythmia Sinusitis Sjogren's disease Sleep apnea Walker as ambulation aid Home Medications fluticasone 500 mcg-salmeterol 50 mcg/dose blistr pow for inhalation (Advair Diskus) 1 puff inhalation BID shortness of breath 01/23/15 [History Last Taken 04/17/15 05:15] albuterol sulfate 90 mcg/actuation aerosol inhaler (ProAir HFA) 1 - 2 puff inhalation Q4H PRN Asthma 04/15/15 [History Last Taken Unknown] montelukast 10 mg tablet 10 mg PO QHS allergies 04/15/15 [History Last Taken Unknown] amlodipine 10 mg tablet 10 mg PO DAILY blood pressure 05/28/15 [History Last Taken 04/05/17 07:15 10 MG] atorvastatin 20 mg tablet 20 mg PO QHS cholesterol 09/23/22 [History Last Taken Unknown] citalopram 40 mg tablet 40 mg PO QHS sleep 09/23/22 [History Last Taken Unknown] empagliflozin 10 mg tablet (Jardiance) 10 mg PO DAILY diabetes 09/23/22 [History Last Taken Unknown] glipizide 5 mg tablet, extended release 24 hr 5 mg PO DAILY diabetes 09/23/22 [History Last Taken Unknown] hydrochlorothiazide 12.5 mg tablet 12.5 mg PO DAILY blood pressure 09/23/22 [History Last Taken Unknown] leflunomide 20 mg tablet 20 mg PO DAILY inflammation 09/23/22 [History Last Taken Unknown] levetiracetam 750 mg tablet,extended release 24 hr 750 mg PO DAILY seizures 09/23/22 [History Last Taken Unknown] losartan 100 mg tablet 100 mg PO QHS blood pressure 09/23/22 [History Last Taken Unknown] metformin 500 mg tablet 500 mg PO DAILY diabetes 09/23/22 [History Last Taken Unknown] ondansetron HCl 4 mg tablet 4 mg PO Q8H PRN Nausea 09/23/22 [History Last Taken Unknown] potassium chloride 20 mEq tablet,extended release 20 meq PO DAILY potassium 09/23/22 [History Last Taken Unknown] pregabalin 75 mg capsule (Lyrica) 75 mg PO DAILY pain 09/23/22 [History Last Taken Unknown] quetiapine 100 mg tablet 200 mg PO DAILY mood disorder 09/23/22 [History Last Taken Unknown] tiotropium bromide 2.5 mcg/actuation mist for inhalation (Spiriva Respimat) 2 puff inhalation DAILY shortness of breath 09/23/22 [History Last Taken Unknown] meclizine 25 mg tablet 25 mg PO BID dizziness 11/26/22 [History Last Taken Unknown] alprazolam 0.5 mg tablet 0.5 mg PO DAILY Anxiety 12/15/22 [History Last Taken Unknown] atomoxetine 80 mg capsule 80 mg PO DAILY attention 12/15/22 [History Last Taken Unknown] venlafaxine 150 mg capsule,extended release 24 hr 300 mg PO DAILY mood 12/15/22 [History Last Taken Unknown] aspirin 81 mg tablet,delayed release (Adult Low Dose Aspirin) 81 mg PO DAILY heart 01/06/23 [History Last Taken Unknown] guaifenesin 600 mg tablet, extended release 12 hr (Mucinex) 600 mg PO BID PRN congestion 04/29/23 [History Last Taken Unknown] metoprolol tartrate 25 mg tablet 25 mg PO BID blood pressure #60 tabs 04/29/23 [Rx Last Taken Unknown] prednisone 20 mg tablet 5 mg PO DAILY PRN pain 04/29/23 [History Last Taken Unknown] furosemide 40 mg tablet 40 mg PO DAILY PRN edema #30 tabs 06/24/23 [Rx Last Taken Unknown] alprazolam 0.5 mg tablet 1 mg PO QHS anxiety/sleep 10/12/23 [History Last Taken Unknown] clopidogrel 75 mg tablet (Plavix) 75 mg PO DAILY blood thinner 10/12/23 [History Last Taken Unknown] fluticasone propionate 50 mcg/actuation nasal spray,suspension 1 spray intranasal DAILY PRN allergy symptoms 10/12/23 [History Last Taken Unknown] Allergy/AdvReac Type Severity Reaction Status Date / Time Sulfa (Sulfonamide Allergy Hives Verified 10/12/23 13:26 Antibiotics) tree nut Allergy Anaphylaxis Verified 10/12/23 13:26 Rabbit AdvReac Severe NEEDS Verified 10/12/23 13:26 FOLLOW-UP sulfamethoxazole AdvReac Severe Skin Verified 10/12/23 13:26 [From Bactrim] rashes & blisters trimethoprim [From Bactrim] AdvReac Severe Skin Verified 10/12/23 13:26 rashes & blisters codeine AdvReac Other Verified 10/12/23 13:26 Environmental Allergies: AdvReac NEEDS Verified 10/12/23 13:26 Uncoded FOLLOW-UP erythromycin base AdvReac Upset Verified 10/12/23 13:26 Stomach milk [dairy] AdvReac Upset Verified 10/12/23 13:26 Stomach morphine AdvReac Nausea Verified 10/12/23 13:26 Family History Mother Diabetes Hypertension Heart disease Father Diabetes Hypertension Heart disease Cancer Brother Heart disease Hypertension Atrial fibrillation Obesity Grandmother AAA (abdominal aortic aneurysm) Grandfather Heart disease Grandmother Cancer Surgical History H/O shoulder surgery History of amputation of toe History of arthroscopic knee surgery History of cardiac catheterization History of coronary artery stent placement History of knee replacement History of shoulder replacement History of tonsillectomy Stented coronary artery (01/26/23) Social History Smoking Status: Never smoker alcohol intake: former substance use type: does not use ROS ROS Narrative Unable to obtain full ROS given patient's difficulty answering questions directly Vital Signs Vital Signs Vital Signs: 10/12/23 13:26 10/12/23 13:39 Temperature 96.0 F L Temperature Source Temporal Pulse Rate 151 H Respiratory Rate 23 H Respiratory Effort Normal Non-Labored Respiratory Depth Normal Respiratory Pattern Normal Blood Pressure 99/73 Blood Pressure Mean 81 Pulse Ox 95 Oxygen Delivery Method Room Air Room Air Weight Weight: 87.6 kg Body Mass Index (BMI) 32.1 Physical Exam Narrative General: Alert but has difficulty answering questions directly HEENT: Normocephalic, profoundly dry mouth Eyes: Anicteric, normal conjunctiva, extraocular movements grossly intact Neck: Supple Respiratory: Clear to auscultation bilaterally, normal respiratory effort Cardiovascular: Low-grade tachycardia GI: Soft, nontender, nondistended Extremities: No edema Musculoskeletal: Moving all extremities, has 1 toe amputated on right foot Neuro: No overt focal neurological deficits, shaking diffusely Skin: Poor hygiene on feet Psych: Attempts to be cooperative Results Lab / Micro Data 10/12/23 14:45 10/12/23 18:43 Labs: Laboratory Results - last 24 hr 10/12/23 14:45: WBC 17.4 H, RBC 6.02 H, Hgb 15.1 H, Hct 48.3 H, MCV 80.2 L, MCH 25.1 L, MCHC 31.3 L, RDW Std Deviation 50.1 H, RDW Coeff of Anali 18.6 H, Plt Count 372, MPV 11.4, Immature Gran % (Auto) 0.700, Neut % (Auto) 84.5 H, Lymph % (Auto) 5.9 L, [place] % (Auto) 8.5, Eos % (Auto) 0.2, Baso % (Auto) 0.2, Absolute Neuts (auto) 14.7 H, Absolute Lymphs (auto) 1.02, Nucleated RBC % 0, PT 22.4 H, INR 1.9, APTT 32.8, Sodium 150 H, Potassium 3.5, Chloride 117 H, Carbon Dioxide 22.0, Anion Gap 11, BUN 137 H*, Creatinine 3.05 H, Estim Creat Clear Calc 18.22, Est GFR (MDRD) Af Amer 19 L, Est GFR (MDRD) Non-Af 16 L, BUN/Creatinine Ratio 44.9 H, Glucose 319 H, Lactic Acid 3.4 H*, Calcium 10.4 H, Total Bilirubin 0.80, AST 52 H, ALT 29, Alkaline Phosphatase 156 H, Total Creatine Kinase 981 H, Troponin I High Sens 60 H, Total Protein 7.9, Albumin 2.6 L, Globulin 5.3 H, Albumin/Globulin Ratio 0.5 L Imaging Radiology Impression Brain CT 10/12/23 13:52 IMPRESSION: Chronic involutional changes of the brain. Electronically Signed: Hung Graham MD at 14:42 EST , Cervical Spine CT 10/12/23 13:55 IMPRESSION: Multilevel degenerative changes, as described above. Electronically Signed: Hung Graham MD at 14:43 EST , Elbow X-Ray 10/12/23 14:20 IMPRESSION: Arthrosis of the elbow, as described above. Electronically Signed: Hung Graham MD at 14:46 EST , Knee X-Ray 10/12/23 14:20 IMPRESSION: Status post total knee replacement. There is good alignment. Electronically Signed: Hung Graham MD at 14:45 EST , Shoulder X-Ray 10/12/23 14:20 IMPRESSION: Impacted fracture of the proximal surgical neck of the humerus with extension to the greater and lesser tuberosities. Cephalic and anterior migration of the distal fracture fragment. Electronically Signed: Hung Graham MD at 14:45 EST , Assessment & Plan Assessment/Plan (1) Acute kidney injury: (2) Asthma: (3) Atherosclerotic heart disease of [place] coronary artery without angina pectoris: (4) Hypernatremia: (5) Leukocytosis: (6) Sleep apnea: (7) Tachycardia: PLAN: Plan #YOON -Pt labs and sx consistent with dehydration and probable component of rhabdo though CK only 981 -IVF -Will obtain further w/u if not improving with current measures -I's and O's -Will hold statin given CK and clinical presentation at this time #R humerus fx -Xray in ED-right impacted fracture of proximal surgical neck of humerus with extension to greater and lesser tuberosities and cephalic and anterior migration of distal fracture fragment -PT/OT -CM c/s -Pain control -Discussed with Ortho on-call, no acute surgical intervention required but ultimately if patient wants surgery it would be indicated and she can follow-up in the office #Hx CAD -s/p stenting 01/26/23 -Cont plavix and aspirin -Will hold statin given CK and clinical presentation at this time #Elevated troponin -Troponin of 60, suspect this is all secondary to her significant dehydration and rhabdo -No CP at present # Elevated lactic acid -Will aggressively hydrate -Does have elevated white blood cell count but has increase in hemoglobin and platelets as well, unclear how much of this is due to hemoconcentration and resorption of hematoma -Will hold off on empiric antibiotics unless any localized signs or symptoms of infection or concerns arise #SANTHOSH -Continue home NIPPV if applicable #Type 2 diabetes mellitus -Glucose checks and sliding scale insulin -Holding home antihyperglycemics # Seizure disorder -Continue Keppra #Asthma -Continue inhalers # RA -Resume leflunomide tomorrow if kidney function improving and liver function stable #Hypertension -Will hold home medications given soft BP and overall presentation # Mood disorder -Continue citalopram, pt on effexor as well based on her med rec, will need to clarify with pt, dangerous to use both ssri and snri in combination so will continue celexa and hold effexor at this time -Given mental status and BP will decrease xanax dosing -Reportedly only takes 1 seroquel at night if needed, will hold at this time unless becomes necessary #DVT ppx: SCDs Elayne Baker MD Time spent in the patient's overall evaluation,decision-making process, review of diagnostic data, adjustment of management, discussion with other providers, nursing nursing and ancillary staff involved in patient's care documentation, 61 minutes Charges/Coding Visit Charges Inpatient E&M: 11614 Init Hosp L2
[2023-10-12 16:45] LABS: Color, Urine Yellow (Yellow); Glucose, Dipstick 100 mg/dl (Normal); Ketone-Dipstick 5 mg/dl (Negative); Leukocyte Esterase-Dipstick 25 /ul (Negative); Nitrite-Dipstick Negative (Negative); Occult Blood-Urine 10 /ul (Negative); Protein-Dipstick 15 mg/dl (Negative); Urine Clarity Clear (Clear); Urine Urobilinogen Normal (Normal)
[2023-10-12 16:49] LABS: Urine Bilirubin Dipstick 1 mg/dL (Negative)
[2023-10-12 16:58] LABS: Squamous Epithelial Cells - UA 0-5 SEEN /hpf (5-10)
[2023-10-12 16:59] LABS: Red Blood Cells-Urine 0-5 SEEN /hpf (0-5); White Blood Cells 0 SEEN /hpf (0-5)
[2023-10-12 17:11] LABS: Magnesium 4.1 mg/dL (1.6-2.6)
[2023-10-12 18:53] LABS: Reflex Lactate? Y
[2023-10-12 19:11] LABS: ALB/GLOB Ratio 0.5 RATIO (0.9-2.4); AST(SGOT) 54 U/L (15-37); Alanine Aminotransfer ALT/SGPT 26 U/L (13-56); Albumin, Serum 2.4 g/dL (3.2-5.0); Alkaline Phosphatase 138 U/L (45-117); Anion Gap 8 (5-15); BUN 132 mg/dL (7-18); BUN/Creat Ratio 49.4 RATIO (10-20); Calcium,Total 9.7 mg/dL (8.5-10.1); Chloride 122 mmol/L (98-107); Creatinine, Serum 2.67 mg/dL (0.55-1.02); EST Glomerular Filtration Rate 19 mL/min (>60); Est Glom Filt Rate - Afr Amer 23 mL/min (>60); Estimated Creatinine Clearance 20.82 ml/min; Globulin 4.5 g/dL (2.2-4.2); Glucose 294 mg/dL (74-106); Potassium 3.3 mmol/L (3.5-5.1); Protein, Total 6.9 g/dL (6.4-8.2); Sodium Level 151 mmol/L (136-145)
--- OUTSIDE RECORDS SUMMARY | 2023-10-12 19:16 | XMS RPT_ITS | CCD ---
Author Name Unknown Address [address] [facility] [address] [place] [address] Organization [facility] Care Team Providers Care Tactical/Mobile Watch Officer Name Role Phone SUBHA BAKER Unavailable Unavailable SUBHA BAKER Unavailable Unavailable MINDI GOMEZ Unavailable Unavailable SUBHA BAKER Unavailable Unavailable SOURAV COHEN Unavailable Unavailable KINA CAVAZOS Unavailable Unavailable SOURAV COHEN Unavailable Unavailable Sinan Jones Unavailable Unavailable Sinan Jones Unavailable Unavailable Davion Peoples MD Primary Care Provider Davion Peoples MD Unavailable Davion Peoples MD Primary Care Provider Davion Peoples MD Unavailable Davion Peoples MD Primary Care Provider Davion Peoples MD Unavailable Davion Peoples MD Primary Care Provider Davion Peoples MD Unavailable Davion Peoples MD Primary Care Provider Davion Peoples MD Primary Care Provider Davion Peoples MD Unavailable JAIRO GUDINO JR Attending Unavailable DAVION PEOPLES Primary Care UnavailWILLIAM Dietz Attending Unavailable DAVION PEOPLES Primary Care Unavailabl KANDICE Fontanez Referring Unavailable KANDICE CORNEJO Attending Unavailable DAVION PEOPLES Primary [facility] Unavailabl e ANABELLA BLUEL Savi Referring Unavailable ANALIA RIVERA Attending Unavailable DAVION PEOPLES Primary Care Unavailabl e NICOLEANALIA Attending Unavailable DAVION PEOPLES [facility] Care Unavailabl e NICOLEANALIA Referring Unavailable DAVION PEOPLES [facility] Care Unavailabl e NICOLEANALIA JORGENSEN Referring Un[facility] Unavailabl e JAIRO GUDINO JR Attending Unavailable DAVION PEOPLES [facility] Care Unavailabl e JAIRO GUDINO JR Referring Unavailable DAVION PEOPLES [facility] Unavailabl e NICOLEANALIA Referring Unavailable DAVION PEOPLES [facility] Unavailabl e NICOLEANALIA Referring Un[facility] Unavailabl e HAILEY HERNANDEZ Referring Unavailable NICOLEANALIA JORGENSEN Attending Unavailable DAVION PEOPLES [facility] Unavailabl e NICOLEANALIA Referring Unavailable [facility] Unavailabl e NICOLEANALIA Referring Unavailable [facility] Unavailabl e Allergies Allergy Classification Reported Allergen(s) Allergy Type Date of Onset Reaction(s) Facility (20 sources) Erythromycin; Translations: [ERYTHROMYCIN] Drug Allergy 12-21-19 12 GI Upset, Vomiting [facility] Work Phone: (20 sources) Sulfamethoxazole / Trimethoprim; Translations: [SULFAMETHOXAZOLE-T RIMETHOPRIM] Drug Allergy 07-18-20 17 Hives [facility] Work Phone: (20 sources) environmentals [Other] Propensity to adverse reactions 12-21-19 12 Unknown [facility] (20 sources) Nut - Unspecified; Translations: [NUT - UNSPECIFIED] Drug Allergy 08-08-20 12 Anaphylaxis [facility] Work Phone: (20 sources) Pineapple; Translations: [PINEAPPLE] Drug Intolerance 02-25-20 20 Other: See Comments [facility] (10 sources) dimethicone; Translations: [DIMETHICONE] Drug Allergy 04-29-20 23 Diarrhea [facility] (1 source) OTHER; Translations: [OTHER] Propensity to adverse reactions (disorder) 12-21-19 [facility] Rep[facility] Medications Current Medications Medication Drug Class(es) Dates Sig (Normalized) Sig (Original) amoxicillin 875 mg / clavulanate 125 mg oral tablet (3 sources) Penicillin-class Antibacterial Start: 02-25-2023 End: 03-07-2023 take 1 tablet by mouth twice daily amoxicillin-clavulan ic acid (AUGMENTIN) 875-125 mg per tablet Indications: Acute bronchitis, unspecified organism , Sinobronchitis Take 1 tablet by mouth twice daily for 7 days. 14 tablet 0 02/28/2023 03/07/2023 Active Completed/Discontinued Medications Medication Drug Class(es) Dates Sig (Normalized) Sig (Original) [id number] 200 actuat albuterol 0.09 mg/actuat metered dose inhaler (20 sources) beta2-Adrenergic Agonist Start: 09-09-2020 End: 04-22-2022 albuterol (PROVENTIL) 2.5 mg /3 mL (0.083 %) nebulizer solution Indications: Severe persistent asthma without complication USE 3 ML VIA NEBULIZER EVERY 6 HOURS NEED OVER 5-15 MINUTES FOR WHEEZING AND SHORTNESS OF BREATH 375 mL 3 04/22/2022 Active Problems Active Problems Problem Classification Problem Date Documented Date Episodic/Chronic Acute bronchitis (2 sources) Acute bronchitis; Translations: [Acute bronchitis, unspecified] 02-25-2023 Episodic Anxiety disorders (20 sources) Posttraumatic stress disorder; Translations: [Post-traumatic stress disorder, unspecified] Onset: 01-26-2019 01-26-2019 Chronic Asthma (20 sources) Asthma; Translations: [Unspecified asthma, uncomplicated] Onset: 05-16-2013 08-17-2021 Chronic Cardiac dysrhythmias (20 sources) Tanvir rhythm disorder; Translations: [Other specified cardiac arrhythmias] Onset: 05-16-2013 08-17-2021 Chronic Conduction disorders (20 sources) First degree atrioventricular block; Translations: [Atrioventricular block, first degree] Onset: 05-16-2013 08-17-2021 Chronic Essential hypertension (20 sources) Hypertensive disorder; Translations: [Essential (primary) hypertension] Onset: 05-16-2013 05-16-2013 Chronic Headache; including migraine (20 sources) Headache; Translations: [Nonintractable episodic headache, unspecified headache type] Onset: 01-26-2019 Episodic Headache; including migraine (1 source) Headache; including migraine; Translations: [Nonintractable episodic headache, unspecified headache type] Onset: 01-26-2019 Other ear and sense organ disorders (1 source) Tinnitus of left ear; Translations: [Tinnitus, left ear] Episodic Other ear and sense organ disorders (1 source) Bilateral tinnitus; Translations: [Tinnitus, bilateral] Episodic Other hereditary and degenerative nervous system conditions (9 sources) Restless legs; Translations: [Restless legs syndrome] Chronic Other hereditary and degenerative nervous system conditions (1 source) Restless legs syndrome; Translations: [RLS (restless legs syndrome)] Onset: 09-19-2023 Chronic Other infections; including parasitic (2 sources) Late effects of other and unspecified infectious and parasitic diseases; Translations: [COVID-19 long hauler] Chronic Other lower respiratory disease (6 sources) Multiple nodules of lung; Translations: [Other nonspecific abnormal finding of lung field] Episodic Other lower respiratory disease (3 sources) Dyspnea; Translations: [Dyspnea, unspecified] Episodic Other lower respiratory disease (1 source) Nodule of lung; Translations: [Solitary pulmonary nodule] 02-25-2023 Episodic Other lower respiratory disease (1 source) Other nonspecific abnormal finding of lung field; Translations: [Lung nodules] Onset: 07-01-2023 Episodic Other nervous system disorders (20 sources) Neuropathy; Translations: [Polyneuropathy, unspecified] Onset: 01-26-2019 Chronic Other nervous system disorders (3 sources) Aphasia; Translations: [Aphasia] Chronic Other nervous system disorders (1 source) Polyneuropathy, unspecified; Translations: [Neuropathy] Onset: 01-26-2019 Chronic Other nervous system disorders (1 source) Aphasia; Translations: [Aphasia] Onset: 12-23-2022 Chronic Other nervous system disorders (3 sources) Impairment of balance; Translations: [Other abnormalities of gait and mobility] Episodic Other nutritional; endocrine; and metabolic disorders (20 sources) Obesity; Translations: [Obesity, unspecified] Onset: 05-16-2013 05-16-2013 Chronic Other nutritional; endocrine; and metabolic disorders (20 sources) Obese class II; Translations: [Obesity, unspecified] Onset: 01-09-2018 01-09-2018 Chronic Other upper respiratory infections (2 sources) Chronic sinusitis; Translations: [Chronic sinusitis, unspecified] 02-25-2023 Chronic Residual codes; unclassified (20 sources) Obstructive sleep apnea syndrome; Translations: [Obstructive sleep apnea (adult) (pediatric)] Onset: 05-16-2013 Chronic Residual codes; unclassified (2 sources) Obstructive sleep apnea (adult) (pediatric); Translations: [Obstructive sleep apnea (adult) (pediatric)] Onset: 01-04-2022 Chronic Spondylosis; intervertebral disc disorders; other back problems (1 source) Other intervertebral disc degeneration, lumbosacral region; Translations: [Degeneration of lumbar or lumbosacral intervertebral disc] Onset: 09-19-2023 Chronic Spondylosis; intervertebral disc disorders; other back problems (11 sources) Low back pain; Translations: [Low back pain, unspecified back pain laterality, unspecified chronicity, unspecified whether sciatica present] Onset: 05-31-2023 Episodic Systemic lupus erythematosus and connective tissue disorders (3 sources) Sjogren's syndrome; Translations: [Sicca syndrome, unspecified] Chronic Transient cerebral ischemia (4 sources) Cerebral ischemia; Translations: [Transient cerebral ischemic attack, unspecified] Onset: 12-23-2022 Chronic Unclassified (1 source) Low back pain, unspecified back pain laterality, unspecified chronicity, unspecified whether sciatica present; Translations: [Low back pain, unspecified back pain laterality, unspecified chronicity, unspecified whether sciatica present] Onset: 12-23-2022 Past or Other Problems Problem Classification Problem Date Documented Date Episodic/Chronic Conditions associated with dizziness or vertigo (20 sources) Vertigo; Translations: [Dizziness and giddiness] Onset: 01-26-2019 01-26-2019 Episodic Lung disease due to external agents (17 sources) Bronchitis and pneumonitis due to chemical fumes; Translations: [Bronchitis and pneumonitis due to chemicals, gases, fumes and vapors] Onset: 01-12-2023 01-12-2023 Episodic Other lower respiratory disease (1 source) Dyspnea, unspecified; Translations: [Dyspnea and respiratory abnormalities] Onset: 02-25-2023 Episodic Other lower respiratory disease (1 source) Other abnormalities of breathing; Translations: [Dyspnea and respiratory abnormalities] Onset: 02-25-2023 Episodic Other nervous system disorders (1 source) Other abnormalities of gait and mobility; Translations: [Balance problems] Onset: 12-23-2022 Episodic Results Test Name Value Interpretation Reference Range Facil ity Vital Signs Date Time Vital Sign Value Performing Clinician Cheikh latham 07-20-2023 15:10-0500 Body weight 99.79 kg Analia Nicole PA-C Work Phone: [facility] 07-20-2023 15:10-0500 Diastolic blood pressure 72 mm[Hg] Analia Nicole PA-C Work Phone: [facility] 07-20-2023 15:10-0500 Heart rate 79 /min Analia Nicole PA-C Work Phone: [facility] 07-20-2023 15:10-0500 SaO2% (BldA) [Mass fraction] 99 % Analia Nicole PA-C Work Phone: [facility] 07-20-2023 15:10-0500 Systolic blood pressure 114 mm[Hg] Analia Nicole PA-C Work Phone: [facility] 07-20-2023 15:02-0500 Body height 166.4 cm Pulm Wstr Work Phone: [facility] 07-20-2023 15:02-0500 Body weight 99.79 kg Pulm Wstr Work Phone: [facility] 02-25-2023 10:00-0400 Body weight 99.79 kg Analia Nicole PA-C Work Phone: [facility] 12-23-2022 09:58-0400 Body temperature 97.9 [degF] Kandice Dahlhausen ENDOSCOPY NURSE.BLOWING WEASAND Work Phone: [facility] 12-23-2022 09:58-0400 Body weight 97.52 kg Kandice Dahlhausen ENDOSCOPY NURSE.BLOWING WEASAND Work Phone: [facility] 12-23-2022 09:58-0400 Diastolic blood pressure 78 mm[Hg] Kandice Dahlhausen ENDOSCOPY NURSE.BLOWING WEASAND Work Phone: [facility] 12-23-2022 09:58-0400 Heart rate 69 /min Kandice Dahlhausen ENDOSCOPY NURSE.BLOWING WEASAND Work Phone: [facility] 12-23-2022 09:58-0400 Respiratory rate 16 /min Kandice Dahlhausen ENDOSCOPY NURSE.BLOWING WEASAND Work Phone: [facility] 12-23-2022 09:58-0400 SaO2% (BldA) [Mass fraction] 96 % Kandice Dahlhausen ENDOSCOPY NURSE.BLOWING WEASAND Work Phone: [facility] 12-23-2022 09:58-0400 Systolic blood pressure 134 mm[Hg] Kandice Dahlhausen ENDOSCOPY NURSE.BLOWING WEASAND Work Phone: [facility] 05-31-2022 14:45-0400 Body weight 96.16 kg Hailey Hernandez MD Work Phone: [facility] 05-31-2022 14:45-0400 Diastolic blood pressure 63 mm[Hg] Hailey Hernandez MD Work Phone: [facility] 05-31-2022 14:45-0400 Heart rate 88 /min Hailey Hernandez MD Work Phone: [facility] 05-31-2022 14:45-0400 SaO2% (BldA) [Mass fraction] 98 % Hailey Hernandez MD Work Phone: [facility] 05-31-2022 14:45-0400 Systolic blood pressure 139 mm[Hg] Hailey Hernandez MD Work Phone: [facility] 04-22-2022 14:31-0400 Body weight 97.98 kg Analia ZHUC Work Phone: [facility] 04-22-2022 14:31-0400 Diastolic blood pressure 80 mm[Hg] Analia ALBERT-C Work Phone: [facility] 04-22-2022 14:31-0400 Heart rate 96 /min Analia ALBERT-C Work Phone: [facility] 04-22-2022 14:31-0400 Respiratory rate 19 /min Analia Nicole PA-C Work Phone: [facility] 04-22-2022 14:31-0400 SaO2% (BldA) [Mass fraction] 96 % Analia Nicole PA-C Work Phone: [facility] 04-22-2022 14:31-0400 Systolic blood pressure 130 mm[Hg] Analia Nicole PA-C Work Phone: [facility] 04-22-2022 14:27-0400 Body height 166.4 cm Respiratory Wstr Work Phone: [facility] 04-22-2022 14:27-0400 Body weight 97.98 kg Respiratory Wstr Work Phone: [facility] 01-07-2022 14:30-0400 Body temperature 97.2 [degF] Kandice Dahlhausen ENDOSCOPY NURSE.BLOWING WEASAND Work Phone: [facility] 01-07-2022 14:30-0400 Body weight 100.79 kg Kandice Dahlhausen ENDOSCOPY NURSE.BLOWING WEASAND Work Phone: [facility] 01-07-2022 14:30-0400 Diastolic blood pressure 72 mm[Hg] Kandice Dahlhausen ENDOSCOPY NURSE.BLOWING WEASAND Work Phone: [facility] 01-07-2022 14:30-0400 Heart rate 129 /min Kandice Dahlhausen ENDOSCOPY NURSE.BLOWING WEASAND Work Phone: [facility] 01-07-2022 14:30-0400 Respiratory rate 20 /min Kandice Dahlhausen ENDOSCOPY NURSE.BLOWING WEASAND Work Phone: [facility] 01-07-2022 14:30-0400 SaO2% (BldA) [Mass fraction] 96 % Kandice Dahlhausen ENDOSCOPY NURSE.BLOWING WEASAND Work Phone: [facility] 01-07-2022 14:30-0400 Systolic blood pressure 112 mm[Hg] Kandice Dahlhausen ENDOSCOPY NURSE.BLOWING WEASAND Work Phone: [facility] 11-06-2021 14:27-0400 Body temperature 97.2 [degF] Hiral Kong Jr. Work Phone: [facility] 11-06-2021 14:27-0400 Body weight 102.51 kg Hiral Kong Jr. Work Phone: [facility] 11-06-2021 14:27-0400 Diastolic blood pressure 62 mm[Hg] Jairo Gudino Jr., MD Work Phone: [facility] 11-06-2021 14:27-0400 Heart rate 102 /min Hiral Kong Jr. Work Phone: [facility] 11-06-2021 14:27-0400 Respiratory rate 18 /min Hiral Kong Jr. Work Phone: [facility] 11-06-2021 14:27-0400 SaO2% (BldA) [Mass fraction] 97 % Jairo Gudino Jr., MD Work Phone: [facility] 11-06-2021 14:27-0400 Systolic blood pressure 128 mm[Hg] Jairo Gudino Jr., MD Work Phone: [facility] Encounters Encounter Date Encounter Type Care Provider Facility Start: 09-19-2023 End: 09-20-2023 ambulatory JAIRO GUDINO JR Facility:[facility] Start: 07-21-2023 Refill Jairo mcclure MD Work Phone: Neurology Procedures Date Procedure Procedure Detail Performing Clinician Start: 07-20-2023 Co diffusing annemarie Rivera PA-C Work Phone: Start: 05-31-2023 Mri spinal canal lum bar w/o contrast material Jairo Gudino MD Work Phone: Start: 02-25-2023 Radiologic exam ches t 2 views Analia Rivera PA-C Work Phone: Start: 03-10-2022 Ct thorax w/o contra st material Rodrigo Lamb MD Work Phone: Start: 01-22-2022 Mri brain brain stem w/o contrast material Kandice Cornejo APRN.CNP Work Phone: Start: 08-22-2009 Lipid 1996 panel - S slim or Plasma [facility] Provider Start: 08-22-2009 Mammography Jairo wellington Jr., MD Work Phone: Plan of Treatment Date Care Activity Detail Author Start: 02-02-2031 Urine microalbumin profile DTaP,Tdap,Td Vaccine (3 - Td or Tdap) [facility] Start: 07-20-2024 BP Controlled (<130/80) BP Con trolled (<130/80) [facility] Start: 04-29-2024 BP Controlled (<130/80) BP Con trolled (<130/80) [facility] Start: 04-29-2024 DIABETES SCREEN DIABETES SCREEN [facility] Start: 04-29-2024 Diabetes Screening Diabetes Screenin g [facility] Start: 04-22-2023 Covid-19 Vaccine () Covid-19 Vaccine () [facility] Start: 04-22-2023 Influenza vaccination [facility] Start: 01-07-2023 BP CONTROLLED (<130/80) BP CON TROLLED (<130/80) [facility] Start: 11-06-2022 BP CONTROLLED (<130/80) BP CON TROLLED (<130/80) [facility] Start: 08-22-2022 ADVANCE DIRECTIVE DISCUSSION ADVANCE DIRECTIVE DISCUSSION [facility] Start: 08-22-2022 DEPRESSION ASSESSMENT DEPRESSION ASS ESSMENT [facility] Start: 07-20-2022 COVID-19 VACCINE (6 - Pfizer risk series) COVID-19 VACCINE (6 - Pfizer risk series) [facility] Start: 05-24-2022 End: 05-22-2023 Ct thorax w/o contrast material CT CHEST WO IVCON Radiology Routine Lung nodules Expected: 05/24/2022, Expires: 05/22/2023 [facility] Work Phone: Immunizations Immunization Date Immunization Notes Care Provider Hector kruger 04-12-2023 pneumococcal (PCV20) vaccine, 20 valent (PREVNAR 20) Pulm Wstr Work Phone: [facility] Work Phone: 05-25-2022 influenza, injectabl e, quadrivalent, preservative free Hailey Hernandez MD Work Phone: [facility] Work Phone: 05-25-2022 influenza virus vaccine, unspecified formulation [facility] Provider [facility] 12-30-2021 COVID-19 original vaccine, age 12+ yr, monovalent (PFIZER-BIONTECH - PURPLE TOP) Hailey Hernandez MD Work Phone: [facility] 08-10-2021 hepatitis A vaccine, pediatric/adolescent dosage, 2 dose schedule Jairo Gudino Jr., MD Work Phone: [facility] 08-10-2021 hepatitis B vaccine, adult dosage Jairo Gudino Jr., MD Work Phone: [facility] 05-11-2021 influenza, injectabl e, quadrivalent, contains preservative Respiratory Wstr Work Phone: [facility] Work Phone: 04-17-2021 COVID-19 original vaccine, age 12+ yr, monovalent (PFIZER-BIONTECH - PURPLE TOP) Hailey Hernandez MD Work Phone: [facility] 11-20-2020 COVID-19 vaccine, ag e 12+ yr (PFIZER-BIONTECH - PURPLE TOP) Jairo Gudino Jr., MD Work Phone: [facility] 10-30-2020 COVID-19 vaccine, ag e 12+ yr (PFIZER-BIONTECH - PURPLE TOP) Jairo Gudino Jr., MD Work Phone: [facility] 05-06-2020 pneumococcal polysaccharide vaccine, 23 valent Jairo Gudino Jr., MD Work Phone: [facility] Work Phone: 04-29-2020 influenza, high-dose , quadrivalent vaccine (FLUZONE HIGH DOSE QUADRIVALENT) Jairo Gudino Jr., MD Work Phone: [facility] Work Phone: 05-05-2019 influenza, high dose seasonal, preservative-free Jairo Gudino Jr., MD Work Phone: [facility] 04-20-2019 influenza, high dose seasonal, preservative-free Jairo Gudino Jr., MD Work Phone: [facility] Work Phone: 06-26-2018 pneumococcal conjuga te vaccine, 13 valent Jairo Gudino Jr., MD Work Phone: [facility] Work Phone: 06-20-2018 pneumococcal polysaccharide vaccine, 23 valent Jairo Gudino Jr., MD Work Phone: [facility] Work Phone: 04-14-2018 influenza, high dose seasonal, preservative-free Jairo Gudino Jr., MD Work Phone: [facility] 04-10-2018 influenza, seasonal, injectable Jairo Gudino Jr., MD Work Phone: [facility] Work Phone: 05-31-2016 pneumococcal polysaccharide vaccine, 23 valent Jairo Gudino Jr., MD Work Phone: [facility] Work Phone: 04-02-2016 influenza, injectabl e, quadrivalent, contains preservative Jairo Gudino Jr., MD Work Phone: [facility] 04-02-2016 influenza, seasonal, injectable Jairo Gudino Jr., MD Work Phone: [facility] Work Phone: 07-17-2012 pneumococcal polysaccharide vaccine, 23 valent Jairo Gudino Jr., MD Work Phone: [facility] Work Phone: Payers Date Payer Category Payer Private Health Insurance [facility] [employer] PPO [id number] 2019-Present [phone] [address] [address] [place] [address] PPO [id number] [facility] [employer] PPO [id number] 2019-Present [phone] [address] [address] [place] [address] PPO [id number] 2017 Medicare [id number] 2017 Unknown [id number] 2016 Medicare [id number] 2016 Medicare [id number] 2011 Unknown [id number] 2011 Unknown [id number] Social History Date Type Detail Facility Start: 12-23-2010 End: 04-22-2022 Tobacco smoking status NHIS Ex-smoker [facility] End: 08-22-1981 History of tobacco use Current smoker [facility] End: 08-22-1981 History of tobacco use Cigarette Smoker [facility] Start: 12-23-2010 End: 09-18-2022 Cigarettes smoked current (pack per day) - Reported 1 [facility] Start: 12-23-2010 End: 04-22-2022 Tobacco use and exposure Smokeless tobacco non-user [facility] Start: 11-06-2021 End: 07-20-2023 Alcohol intake Current drinker of alcohol (finding) [facility] Start: 12-21-2011 History SDOH Alcohol Comment very occasional [facility] Start: 02-12-2019 End: 04-22-2022 Tobacco Comment No smoking in childhood home. Quit cold turkey. No current household ETS smoking, 02/12/19. [facility] Start: 1950 Sex Assigned At Not on file [facility] Start: 10-27-2021 End: 05-31-2022 Exposure to SARS-CoV-2 (event) Not sure [facility] Start: 04-05-2022 End: 04-15-2022 Exposure to SARS-CoV-2 (event) Yes [facility] Start: 09-18-2022 End: 02-25-2023 Tobacco use panel [facility] National Score (1-10 0), lower number is lower risk 70 [facility] Clinical Notes 11-06-2021 to 09-19-2023 Telephone Encounter - Fany Painter - 07/21/2023 3:24 PM Suzie Mitchell RPFT - 07/20/2023 3:02 PM Analia Garcia PA-C - 07/20/2023 3:01 PM EST Note Date & Type Note Facility 09-19-2023 Note HNO ID: [id number] Author: JAIRO GUDINO JR, MD Service: ? Author Type: Physician Type: Progress Notes Filed: 09/19/2023 17:47 Note Text: ESTABLISHED PATIENT VISIT CHIEF COMPLAINT: Follow Up HISTORY OF PRESENT ILLNESS: Rajwinder Wylie is a 73 year old female, BMI 35.95 kg/m2 with a PMH significant for and per last office visit of 05/19/23: 1. Acute left-sided low back pain with left-sided sciatica - ICD9: 724.2, 724.3, ICD10: M54.42 (primary diagnosis) 2. Right sided sciatica - ICD9: 724.3, ICD10: M54.31 3. Spinal stenosis, lumbar region with neurogenic claudication - ICD9: 724.03, ICD10: M48.062 Pt with pain suggestive of sciatica with radiation of pain from lower back through L5 and S1 dermatomes on L>R. No prior imaging. Not improving with current meds including Lyrica 200mg/day. Will get MRI L spine to further evaluate for possible spinal stenosis. Note, no bowel or bladder weakness and strength intact. Will also refer to spine and pain for evaluation. For immediate pain control, will increase Lyrica to 300mg/day -- ok per review of renal function. 4. Neuropathy - ICD9: 355.9, ICD10: G62.9 5. RLS (restless legs syndrome) - ICD9: 333.94, ICD10: G25.81 Both conditions table on combination of Lyrica and Keppra. No changes to medications at this time. 6. SANTHOSH (obstructive sleep apnea) - ICD9: 327.23, ICD10: G47.33 Subjective and objective PAP compliance confirmed today with perceived benefit. Encouraged continued compliance. AHI normalized and thus, no changes in PAP settings. Reminded to clean and replace equipment regularly. Advised pt not to drive or operate heavy machinery if sleepy. 7. Nonintractable episodic headache, unspecified headache type - ICD9: 784.0, ICD10: R51.9 Stable. Noc hange in meds. Patient recently with flu. Also with significant swelling in lower exts. States did not take HCTZ for a couple days. +FRANCISCO. No chest pain. No palpitations. EF was 70% in 2021. Stent placed in January 2023 (Dr. Blue at [facility]). Pt still has not had repair of ulna on R. Plan for the latter - surgery in Sep 2022. MRI L spine 05/31/23 per rad report: Degenerative changes most severe at L2-L3 and L4-L5 as itemized above. No significant central canal stenosis per report. Pain in lower back with ambulation. Not radiating down legs. States happened suddenly. No bowel or bladder. Lyrica and Keppra controlling both RLS and neuropathy. States glucose levels have been good. Tried going off Xanax but cannot relax or go to sleep at all. Pt not able to wear PAP this past month due to flu virus. Prior to that was doing well with confirmed PAP compliance on download and normalization of AHI. States PAP device no longer working. Headaches controlled. REVIEW OF SYSTEMS GENERAL:No weight loss, malaise or fevers. HEENT:No changes in hearing or vision, no nose bleeds or other nasal problems NECK:Negative for lumps, goiter, pain and significant neck swelling RESPIRATORY: See HPI. CARDIOVASCULAR: See HPI. GASTROINTESTINAL: Negative for abdominal discomfort, blood in stools or black stools or change in bowel habits GENITOURINARY: No history of dysuria, frequency or incontinence MUSCULOSKELETAL: Negative for joint pain or swelling, back pain or muscle pain. NEUROLOGIC:Negative for focal numbness or weakness, headaches and dizziness or syncope, vision changes, speech/languag changes - EXCEPT that as per HPI above. HEMATOLOGIC/LYMPHATIC/IMMUNOLOGI C:Negative for prolonged bleeding, bruising easily or swollen nodes. ENDOCRINE: Negative for cold or heat intolerance, polyuria, polydipsia and goiter. The remainder of the ROS was reviewed and is negative. SKIN: Lesions on lower exts, etiology uncertain, pt asking for abx and advised pt to reach out to PCP. Scheduled with PCP during office visit. LAB/IMAGING: Those performed since patient's last visit have been reviewed. WBC (k/uL) Date Value 02/25/2023 12.31 (H) RBC (m/uL) Date Value 02/25/2023 5.32 (H) Hemoglobin (g/dL) Date Value 02/25/2023 13.6 Hematocrit (%) Date Value 02/25/2023 42.4 MCV (fL) Date Value 02/25/2023 79.7 (L) MCH (pg) Date Value 02/25/2023 25.6 (L) MCHC (g/dL) Date Value 02/25/2023 32.1 RDW-CV (%) Date Value 02/25/2023 16.1 (H) Platelet Count (k/uL) Date Value 02/25/2023 285 MPV (fL) Date Value 02/25/2023 10.0 Glucose (mg/dL) Date Value 01/09/2018 102 (H) BUN (mg/dL) Date Value 01/09/2018 18 Creatinine (mg/dL) Date Value 01/09/2018 0.83 Sodium (mmol/L) Date Value 01/09/2018 139 Potassium (mmol/L) Date Value 01/09/2018 3.7 Chloride (mmol/L) Date Value 01/09/2018 100 CO2 (mmol/L) Date Value 01/09/2018 28 Protein, Total (g/dL) Date Value 04/29/2021 6.3 Calcium (mg/dL) Date Value 01/09/2018 9.4 MEDICATIONS: levETIRAcetam ER (KEPPRA XR) 750 mg 24 hr tablet Take 1 tablet by mouth once daily. cevimeline (EVOXAC) 30 mg capsule (more content not included)... [facility] 07-21-2023 Miscellaneous Notes PATIENT ALSO EXPRESSED THAT HER CPAP MACHINE PATIENT ASSESSED AND CURRENTLY THE MACHINE IS NOT TURNING ON AND STATED I GOT NOTHING AND REQUESTING NEW ORDER FOR EQUIPMENT. THANK YOU. Patient has been identified by name and date of : Yes Requested Prescriptions Pending Prescriptions Disp Refills levETIRAcetam ER (KEPPRA XR) 750 mg 24 hr tablet 90 tablet 1 Sig: Take 1 tablet by mouth once daily. RX INSTRUCTIONS: Patient requesting a call when RX is approved and sent to the pharmacy. Please call patient at: [phone] Fany Cruz documented in this encounter [facility] 07-20-2023 Note HNO ID: [id number] Author: Suzie Ernst RPFT Service: ? Author Type: Respiratory Therapist Type: Progress Notes Filed: 07/20/2023 3:03 PM Note Text: PULM FUNCTION SMARTBLOCK: Provider: Analia Rivera PA-C Assisting Tech: Suzie Ernst RPFT Spirometry: 1 DLCO: 1 LV - Box: [address] [facility] 07-20-2023 Note HNO ID: [id number] Author: Analia Rivera PA-C Service: ? Author Type: Physician Nurse Informatics Educator Type: Progress Notes Filed: 07/21/2023 9:48 AM Note Text: Patient: Rajwinder Wylie PCP: Davion Peoples MD CC: follow up HPI: Rajwinder Wylie 73 year old female former 10 pack year smoker with PMH significant for asthma, SANTHOSH on CPAP, RA, Sjogren's, CAD, s/p PCI 01/26/2023 at [facility], HTN and pulmonary nodularity. 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 Did have allergies as child, required immunotherapy. Asthma had been under good control until COVID infection in August. Current therapy consists of Advair, Singulair and as needed Albuterol. Most recent CT chest demonstrated stable scarring in the anterior right upper lobe and bilateral lower lobes, stable scattered 2 to 3 mm pulmonary nodules, and no new nodules. Established with a new clammer at [facility] and was started on Enbrel. However, she has not been able to afford it and does not qualify for prescription assistance. From a respiratory standpoint, is coughing on a daily basis. Taking Mucinex daily and producing green/engle sputum. No hemoptysis. Occasional wheezing when she is running after her dog. Exertional dyspnea with climbing stairs and walking long distances. She also notes that she is out of shape. PAST MEDICAL HISTORY Diagnosis Date Asthma First degree heart block 05/16/2013 Outside post 9-11 follow-up screening, 2012. Hypertension 05/16/2013 Lyme disease Meniere disease Obesity 05/16/2013 SANTHOSH (obstructive sleep apnea) 05/16/2013 CPAP 11. Claims to be CPAP compliant. RA (rheumatoid arthritis) ([facility]) 2013 Sinus arrhythmia 05/16/2013 Outside post - follow-up screening, 2012. Sinusitis Sjogren's disease ([facility]) Allergies: Bactrim [Sulfametho* Hives Erythromycin GI Upset, Vomiting Nut - Unspecified Anaphylaxis Comment:Tree Nuts. Anaphylaxis. Environmentals [Oth* Unknown Comment:Dust, tobacco, pollen, ragweed Natural Oatmeal [Di* Diarrhea Pineapple Other: See Comments Comment:Causes mouth to feel like razors levETIRAcetam ER (KEPPRA XR) 750 mg 24 hr tabletTake 1 tablet by mouth once daily.Disp: 90 tabletRfl: 1 pregabalin (LYRICA) 150 mg capsuleTake 1 capsule by mouth twice daily for 90 days.Disp: 180 capsuleRfl: 0 fluticasone-salmeterol (ADVAIR DISKUS) 500-50 mcg/dose dsdvInhale 1 Puff as instructed twice daily.Disp: 3 EachRfl: 3 montelukast (SINGULAIR) 10 mg tabletTAKE 1 TABLET DAILY AT BEDTIMEDisp: 90 tabletRfl: 3 guaiFENesin (MUCINEX) 600 mg 12 hr tabletTake 1 tablet by mouth twice daily.Disp: 180 tabletRfl: 3 Mucus Clearing Device deviProvide 1 mucus clearing device.Disp: 1 EachRfl: 0 albuterol (PROVENTIL) 2.5 mg /3 mL (0.083 %) nebulizer solutionUSE 3 ML VIA NEBULIZER EVERY 6 HOURS NEED OVER 5-15 MINUTES FOR WHEEZING AND SHORTNESS OF BREATHDisp: 375 mLRfl: 3 albuterol HFA (PROAIR HFA) 90 mcg/actuation inhalerInhale 2 Puffs as instructed every 4 hours as needed for wheezing/shortness of breath.Disp: 3 EachRfl: 3 ipratropium (ATROVENT) 0.02 % nebulizer solutionUse 2.5 mL via nebulizer four times daily as needed for wheezing/shortness of breath. OVER 5-15 MINUTES FOR WHEEZING OR SHORTNESS OF BREATHDisp: 900 mLRfl: 3 JARDIANCE 10 mg tabletTake 10 mg by mouth once daily.Disp: Rfl: CPAPIn-line filter - Respironics Device. Lifetime supplies.Disp: 1 DeviceRfl: 99 CPAPPlease set at 10-20 cmH2O with humidity with download to us in 4 weeks. Also please provide mask fitting (dreamwear under the nose nasal mask).Disp: 1 DeviceRfl: 99 potassium chloride 20 mEq TbERTake 1 tablet by mouth once daily.Disp: Rfl: atorvastatin (LIPITOR) 20 mg tabletTake 20 mg by mouth once daily.Disp: Rfl: leflunomide (ARAVA) 20 mg tabletTake 20 mg by mouth once daily.Disp: Rfl: Nebulizer Accessories kitProvide nebulizer kit.Disp: 1 KitRfl: 3 Nebulizer and Compressor For NebProvide nebulizer.Disp: 1 EachRfl: 0 CPAPPlease eval pts machine as not providing downloads. If you can get download please send us copy. Also please provided mask fitting as pts mask leaking.Disp: 1 DeviceRfl: 99 ipratropium (ATROVENT) 0.02 % nebulizer solutionUse 2.5 mL via nebulizer one time only for 1 dose. OVER 5-15 MINUTES FOR WHEEZING OR SHORTNESS OF BREATHDisp: 2.5 mLRfl: 0 predniSONE (DELTASONE) 10 mg tablet2 DAILY FOR 1 WEEK THEN 1 TAB DAILY FOR 1 WEEK. KEEP REMAINDER ON HAND FOR FUTURE FLARESDisp: 60 tabletRfl: 1 venlafaxine ER (EFFEXOR XR) 150 mg 24 hr [id number] mg once daily.Disp: Rfl: fluticasone (FLONASE) 50 mcg/actuation nasal sprayUse 1 [place] in each nostril once daily.Disp: 1 BottleRfl: 5 losartan (COZAAR) 50 mg tabletTake 1 tablet by mouth once daily.Disp: Rfl: citalopram (CELEXA) 20 mg tabletTake 40 mg by mouth once daily. Disp: Rfl: QUEtiapine (SEROQUEL) 100 mg tabletTake 200 mg by mouth daily a (more content not included)... [facility] 07-20-2023 History of Presen t illness Narrative PULM FUNCTION SMARTBLOCK: Provider: Analia Rivera PA-C Assisting Tech: Suzie Ernst RPFT Spirometry: 1 DLCO: 1 LV - Box: 1 documented in this encounter [facility] 07-20-2023 History of Presen t illness Narrative Images from the original note were not included. Patient: Rajwinder Wylie PCP: Davion Peoples MD CC: follow up HPI: Rajwinder Wylie 73 year old female former 10 pack year smoker with PMH significant for asthma, SANTHOSH on CPAP, RA, Sjogren's, CAD, s/p PCI 01/26/2023 at [facility], HTN and pulmonary nodularity. 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 Did have allergies as child, required immunotherapy. Asthma had been under good control until COVID infection in August. Current therapy consists of Advair, Singulair and as needed Albuterol. Most recent CT chest demonstrated stable scarring in the anterior right upper lobe and bilateral lower lobes, stable scattered 2 to 3 mm pulmonary nodules, and no new nodules. Established with a new clammer at [facility] and was started on Enbrel. However, she has not been able to afford it and does not qualify for prescription assistance. From a respiratory standpoint, is coughing on a daily basis. Taking Mucinex daily and producing green/engle sputum. No hemoptysis. Occasional wheezing when she is running after her dog. Exertional dyspnea with climbing stairs and walking long distances. She also notes that she is out of shape. PAST MEDICAL HISTORY Diagnosis Date Asthma First degree heart block 05/16/2013 Outside post 911 follow-up screening, 2012. Hypertension 05/16/2013 Lyme disease Meniere disease Obesity 05/16/2013 SANTHOSH (obstructive sleep apnea) 05/16/2013 CPAP 11. Claims to be CPAP compliant. RA (rheumatoid arthritis) ([facility]) 2014 Sinus arrhythmia 05/16/2013 Outside post 9-11 follow-up screening, 2012. Sinusitis Sjogren's disease ([facility]) Allergies: Bactrim [Sulfametho* Hives Erythromycin GI Upset, Vomiting Nut - Unspecified Anaphylaxis Comment:Tree Nuts. Anaphylaxis. Environmentals [Oth* Unknown Comment:Dust, tobacco, pollen, ragweed Natural Oatmeal [Di* Diarrhea Pineapple Other: See Comments Comment:Causes mouth to feel like razors levETIRAcetam ER (KEPPRA XR) 750 mg 24 hr tablet^Take 1 tablet by mouth once daily.^Disp: 90 tablet^Rfl: 1 pregabalin (LYRICA) 150 mg capsule^Take 1 capsule by mouth twice daily for 90 days.^Disp: 180 capsule^Rfl: 0 fluticasone-salmeterol (ADVAIR DISKUS) 500-50 mcg/dose dsdv^Inhale 1 Puff as instructed twice daily.^Disp: 3 Each^Rfl: 3 montelukast (SINGULAIR) 10 mg tablet^TAKE 1 TABLET DAILY AT BEDTIME^Disp: 90 tablet^Rfl: 3 guaiFENesin (MUCINEX) 600 mg 12 hr tablet^Take 1 tablet by mouth twice daily.^Disp: 180 tablet^Rfl: 3 Mucus Clearing Device jeannine^Provide 1 mucus clearing device.^Disp: 1 Each^Rfl: 0 albuterol (PROVENTIL) 2.5 mg /3 mL (0.083 %) nebulizer solution^USE 3 ML VIA NEBULIZER EVERY 6 HOURS NEED OVER 5-15 MINUTES FOR WHEEZING AND SHORTNESS OF BREATH^Disp: 375 mL^Rfl: 3 albuterol HFA (PROAIR HFA) 90 mcg/actuation inhaler^Inhale 2 Puffs as instructed every 4 hours as needed for wheezing/shortness of breath.^Disp: 3 Each^Rfl: 3 ipratropium (ATROVENT) 0.02 % nebulizer solution^Use 2.5 mL via nebulizer four times daily as needed for wheezing/shortness of breath. OVER 5-15 MINUTES FOR WHEEZING OR SHORTNESS OF BREATH^Disp: 900 mL^Rfl: 3 JARDIANCE 10 mg tablet^Take 10 mg by mouth once daily.^Disp: ^Rfl: CPAP^In-line filter - Respironics Device. Lifetime supplies.^Disp: 1 Device^Rfl: 99 CPAP^Please set at 10-20 cmH2O with humidity with download to us in 4 weeks. Also please provide mask fitting (dreamwear under the nose nasal mask).^Disp: 1 Device^Rfl: 99 potassium chloride 20 mEq TbER^Take 1 tablet by mouth once daily.^Disp: ^Rfl: atorvastatin (LIPITOR) 20 mg tablet^Take 20 mg by mouth once daily.^Disp: ^Rfl: leflunomide (ARAVA) 20 mg tablet^Take 20 mg by mouth once daily.^Disp: ^Rfl: Nebulizer Accessories kit^Provide nebulizer kit.^Disp: 1 Kit^Rfl: 3 Nebulizer and Compressor For Neb^Provide nebulizer.^Disp: 1 Each^Rfl: 0 CPAP^Please eval pts machine as not providing downloads. If you can get download please send us copy. Also please provided mask fitting as pts mask leaking.^Disp: 1 Device^Rfl: 99 ipratropium (ATROVENT) 0.02 % nebulizer solution^Use 2.5 mL via nebulizer one time only for 1 dose. OVER 5-15 MINUTES FOR WHEEZING OR SHORTNESS OF BREATH^Disp: 2.5 mL^Rfl: 0 predniSONE (DELTASONE) 10 mg tablet^2 DAILY FOR 1 WEEK THEN 1 TAB DAILY FOR 1 WEEK. KEEP REMAINDER ON HAND FOR FUTURE FLARES^Disp: 60 tablet^Rfl: 1 venlafaxine ER (EFFEXOR XR) 150 mg 24 hr capsule^300 mg once daily.^Disp: ^Rfl: fluticasone (FLONASE) 50 mcg/actuation nasal spray^Use 1 [place] in each nostril once daily.^Disp: 1 Bottle^Rfl: 5 losartan (COZAAR) 50 mg tablet^Take 1 tablet by mouth once daily.^Disp: ^Rfl: citalopram (CELEXA) 20 mg tablet^Take 40 mg by mouth once daily. ^Disp: ^Rfl: QUEtiapine (SEROQUEL) 100 mg tablet^Take 200 mg by mouth daily at bedtime. ^Disp: ^Rfl: amLODIPine 5 mg ORAL tablet^Take 5 mg by mouth once daily. ^Disp: ^Rfl: hydrochlorothiazide 25 mg ORAL tablet^Take 12.5 mg by mouth once daily. ^Disp: ^Rfl: ALPRAZolam (XANAX) 0.5 mg tablet^Take 0.5 mg by mouth at bedtime as needed.^Disp: ^Rfl: Social History Tobacco Use Smoking status: Former Packs/day: 1.00 Years: 10.00 Additional pack years: 0.00 Total pack years: 10.00 Types: Cigarettes Quit date: 08/22/1981 Years since quittin.9 Smokeless tobacco: Never Tobacco comments: No smoking in childhood home. Quit cold turkey. No current household ETS smoking, 02/12/19. Vaping Use Vaping Use: Never used Substance Use Topics Alcohol use: Yes Comment: Very occasional, once a month or less. TO 05/21/2014. Drug use: No Family History Problem Relation Age of Onset Diabetes Mother Onset age 18, age 81. Heart disease Mother 2 valve surgeries. Cancer Father 82 Esophageal cancer Heart Brother Atrial fib. Cancer Paternal Grandmother Lung, mets to brain. PAST SURGICAL HISTORY Procedure Laterality Date ANES ARTHROSCOPIC TOTAL SHOULDER REPLACEMENT Left 04/05/2017 Cory KNEE ARTHROSCOP MENISCUS REPAIR MED/LAT 1998 and 2010 RECONSTRUCTION ROTATOR CUFF AVULSION CHRONIC 1989 TONSILLECTOMY & ADENOIDECTOMY AGE 13/> I reviewed the past medical history, family history, social history and surgical history with changes noted above and updated in EMR. IMMUNIZATIONS Prevnar 20 - 04/12/2023 Prevnar - 2017 Pneumovax 2019 Influenza - xx COVID-19 - most recent 12/2021 ROS: General: No fevers, chills or night sweats. No unintended weight loss. Eyes, Ears, nose, throat: Persistent post nasal drip, rhinorrhea. No purulent nasal discharge, epistaxis. No hoarseness. Vision stable. Cardiac: No angina, edema, orthopnea. Resp: See HPI. GI: No heartburn, dysphagia. Musculoskeletal: No new pain, chronic back pain. Referred to pain medicine. Neuro: No headache, focal weakness, tremor. Skin: No new skin changes or rash. Otherwise negative. PHYSICAL EXAMINATION: BP 114/72 Pulse 79 Wt 99.8 kg (220 lb) SpO2 99% BMI 36.05 kg/m Gen: No acute distress. Cooperative with examination. Morbidly obese. HEENT: Normocephalic. Sclera, conjunctiva clear. Oral hygeine and dentition good. No thrush. Resp: No stridor, accessory respiratory muscle use, supra-sternal or intercostal retractions. No wheezes, crackles. CV: Regular rythm. Heart tones normal. Radial pulses normal. MSK: No kyphoscoliosis. Ext: Warm and well perfused. No clubbing, cyanosis, edema. Skin: No rash, ecchymoses. Neuro: Mental status normal. Affect normal. No tremor. DATA: PFT, 07/20/2023 CT chest, 07/01/2023 IMPRESSION: 1. Stable scarring in the anterior right upper lobe and bilateral lower lobes. No acute airspace disease. 2. Stable scattered 2 to 3 mm pulmonary nodules. No new nodules are visualized. 3. No thoracic lymphadenopathy Comparison: CT chest 05/31/2022 RESULT: Limitations: None. Lines, tubes, and devices: None. Lung parenchyma and airways: No consolidation. Stable scattered 2 to 3 mm pulmonary nodules. No new suspicious pulmonary nodules. Stable scarring in the anterior right upper lobe and bilateral posterior lower lobes. The central airways are patent. Pleural space: No pleural effusion. No pleural thickening. Lower neck, lymph nodes, and mediastinum: The imaged thyroid gland is normal. No lymphadenopathy in the supraclavicular, axillary, mediastinal, or hilar regions. Heart, pericardium, and thoracic vessels: The thoracic aorta and main pulmonary artery are normal in caliber. The cardiac chambers are normal in size. Coronary artery atherosclerotic calcifications are noted, although the study is not optimized for coronary assessment. No pericardial effusion or thickening. Bones and soft tissues: No destructive bone lesion. Degenerative disease of the thoracic spine. Chest wall is unremarkable. Upper abdomen: No acute abnormality in the imaged upper abdomen. Fatty infiltration of the pancreas. Manager Demand (topogram) images: No additional findings. ASSESSMENT/PLAN: 1. Severe persistent asthma without complication - ICD9: 493.90, ICD10: J45.50 (primary diagnosis) Continue Advair with as needed Albuterol. Rinse mouth after each use to help prevent oral thrush. Continue Singulair. 2. Sjogren's syndrome, with unspecified organ involvement (HCC) - ICD9: 710.2, ICD10: M35.00 At risk for development of bronchiectasis. \ 3. Lung nodules - ICD9: 793.19, ICD10: R91.[address] chest in June 2024. Portions of this documentation were copied and pasted from previous office visit notes in order to provide a cohesive continuity of the history. The note has been reviewed and edited and updated as necessary. Analia Rivera PA-C documented in this encounter [facility] 07-01-2023 Note HNO ID: [id number] Author: Almaz Danielson RT(R) Service: ? Author Type: Dredge Lever Operator Type: Progress Notes Filed: 07/01/2023 4:14 PM Note Text: Radiology Service Progress Note PATIENT NAME: Rajwinder Wylie DATE OF SERVICE: July 01, 2023 TIME: 4:14 PM PATIENT IDENTITY VERIFICATION COMPLETED USING TWO (2) IDENTIFIERS: Name and Date of confirmed by patient verbally. FALL SCREENING: Has the patient had 2 falls in the last year or 1 fall with injury or currently using an Ambulatory Assistive Device (Walker, Cane, Wheelchair, Crutches, etc.)? No PATIENT GENDER DATA: Female. status: : No status: NO. PATIENT RELEVANT IMPLANT DATA REVIEWED: Yes RADIOLOGY DEPARTMENT: CT; Exam(s) Completed: Chest PERIPHERAL IV DATA: Not applicable SIGNED BY: RT Dyana(R) July 01, 2023 4:[address] [facility] 07-01-2023 History of Presen t illness Narrative Radiology Service Progress Note PATIENT NAME: Rajwinder Wylie DATE OF SERVICE: July 01, 2023 TIME: 4:14 PM PATIENT IDENTITY VERIFICATION COMPLETED USING TWO (2) IDENTIFIERS: Name and Date of confirmed by patient verbally. FALL SCREENING: Has the patient had 2 falls in the last year or 1 fall with injury or currently using an Ambulatory Assistive Device (Walker, Cane, Wheelchair, Crutches, etc.)? No PATIENT GENDER DATA: Female. status: : No status: NO. PATIENT RELEVANT IMPLANT DATA REVIEWED: Yes RADIOLOGY DEPARTMENT: CT; Exam(s) Completed: Chest PERIPHERAL IV DATA: Not applicable SIGNED BY: RT Dyana(R) July 01, 2023 4:14 PM documented in this encounter [facility] 06-03-2023 Miscellaneous Notes Patient contacted via telephone regarding upcoming NEW patient appointment with Dr. Tinoco on 06/06/23. Patient informed of the following: This is the [facility] calling regarding your upcoming appointment with Dr. Tinoco. Please complete the assigned pre-visit questionnaires on [employer] prior to your appointment. To avoid a delay in your care, please bring any radiology images that have been done outside of the [facility] on a disk to be viewed at your appointment. Dr. Tinoco is an Interventional Pain Management provider specializing in the Spine. Please be aware that this appointment is a consult only and narcotics will NOT be prescribed. He treats with physical therapy, injections of the spine or joints, and non-narcotic medications. Dr. Tinoco will not take over and manage any medications that are already being prescribed by another provider. Dr. Tinoco does not fill disability or any other insurance-related forms/documentation Patient verbalized understanding with no additional questions at this time. documented in this encounter [facility] 05-31-2023 Note HNO ID: [id number] Author: Salena Calderon RT(Candie) Service: ? Author Type: Technologist Type: Progress Notes Filed: 05/31/2023 10:22 AM Note Text: Radiology Service Progress Note PATIENT NAME: Rajwinder Wylie DATE OF SERVICE: May 31, 2023 TIME: 10:22 AM PATIENT IDENTITY VERIFICATION COMPLETED USING TWO (2) IDENTIFIERS: Name and Date of confirmed by patient verbally. FALL SCREENING: Has the patient had 2 falls in the last year or 1 fall with injury or currently using an Ambulatory Assistive Device (Walker, Cane, Wheelchair, Crutches, etc.)? Yes, Patient High Risk for Falls What interventions were put in place to prevent falls during this visit? Instructed Patient to Call for Help if Needed, Offered Assistance with Transfers/Clothing, Instructed Patient to Remain Seated (Not on Exam Table) Until Exam, and Increased Observations by Caregivers PATIENT GENDER DATA: Female. status: : No status: NO. PATIENT RELEVANT IMPLANT DATA REVIEWED: Yes RADIOLOGY DEPARTMENT: MR; Exam(s) Completed: Spine: Lumbar spine PERIPHERAL IV DATA: Not applicable SIGNED BY: RT Bee(R) May 31, 2023 10:[address] [facility] 05-31-2023 History of Presen t illness Narrative Radiology Service Progress Note PATIENT NAME: Rajwinder Wylie DATE OF SERVICE: May 31, 2023 TIME: 10:22 AM PATIENT IDENTITY VERIFICATION COMPLETED USING TWO (2) IDENTIFIERS: Name and Date of confirmed by patient verbally. FALL SCREENING: Has the patient had 2 falls in the last year or 1 fall with injury or currently using an Ambulatory Assistive Device (Walker, Cane, Wheelchair, Crutches, etc.)? Yes, Patient High Risk for Falls What interventions were put in place to prevent falls during this visit? Instructed Patient to Call for Help if Needed, Offered Assistance with Transfers/Clothing, Instructed Patient to Remain Seated (Not on Exam Table) Until Exam, and Increased Observations by Caregivers PATIENT GENDER DATA: Female. status: : No status: NO. PATIENT RELEVANT IMPLANT DATA REVIEWED: Yes RADIOLOGY DEPARTMENT: MR; Exam(s) Completed: Spine: Lumbar spine PERIPHERAL IV DATA: Not applicable SIGNED BY: RT Bee(R) May 31, 2023 10:22 AM documented in this encounter [facility] 04-29-2023 Note HNO ID: [id number] Author: Jairo Gudino Jr., MD Service: ? Author Type: Physician Type: Progress Notes Filed: 05/06/2023 6:29 PM Note Text: ESTABLISHED PATIENT VISIT CHIEF COMPLAINT: Follow Up HISTORY OF PRESENT ILLNESS: Rajwinder Wylie is a 72 year old female, BMI 36.6 kg/m2 with a PMH significant for and per last office visit note of Jonnie Cornejo [employer] on 12/23/22: G62.9 Neuropathy (primary encounter diagnosis) Comment: Sx stable other than recent exacerbation due to running out of medication. Exam remains unchanged. Will continue Lyrica 100mg BID and Keppra XR 750mg. RF provided. G25.81 RLS (restless legs syndrome) Comment: Symptoms remain stable. Currently taking Lyrica 100mg BID and Keppra XR 750mg. G47.33 SANTHOSH (obstructive sleep apnea) Comment: Download reviewed and AHI normalized. No concerns regarding mask fit or pressure. Continue to remain complaint with PAP and clean and replace equipment regularly. M54.50 Low back pain, unspecified back pain laterality, unspecified chronicity, unspecified whether sciatica present M54.31 Sciatica of right side Comment: Continues to follow with [facility]. Lyrica 100mg BID. H93.13 Tinnitus of both ears R42 Vertigo Comment: Pt reporting increase in intensity of constant tinnitus. Tinnitus present since -. Also noting vertigo. MRI brain completed since time of last appointment and was unremarkable (stable lipoma). Currently following with ENT for workup for possible Meniere's. Audiogram scheduled for February. Continue follow up with ENT. Pt moving to [facility] in the future. Patient states not doing great. 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 Planning for repair of both with [facility]. Note pt needed cardiac workup first for tachy and pt reports transposition of cardiac vessels as child. PAP data download shows last 90 days -- 86 days use with avg of 6 hours and 56 minutes. 90% pressure is 13.4 cmH2O. AHI is 3.8. Pt reports sleep is good. Neuropathy and RLS doing well but sciatica pain. Following with [facility] with reported bone spurs throughout lumbar spine. Going to [facility] Pain through L5/S1. Prevoiusly worse on the L side. Worse with ambulation, but also present if sitting or standing. Pt on prednisone 5mg daily for Sjogren's and RA. Renal function normal within past year. Saw ENT - audiology testing borderline per pt. Tinnitus worse. REVIEW OF SYSTEMS GENERAL:No weight loss, malaise or fevers. HEENT:Negative for frequent or significant headaches, No changes in hearing or vision, no nose bleeds or other nasal problems NECK:Negative for lumps, goiter, pain and significant neck swelling RESPIRATORY: Negative for cough, wheezing or shortness of breath. CARDIOVASCULAR: Negative for chest pain, leg swelling or palpitations. GASTROINTESTINAL: Negative for abdominal discomfort, blood in stools or black stools or change in bowel habits GENITOURINARY: No history of dysuria, frequency or incontinence MUSCULOSKELETAL: See HPI. NEUROLOGIC:See HPI. SKIN:Negative for lesions, rash, and itching. LAB/IMAGING: Those performed since patient's last visit have been reviewed. WBC (k/uL) Date Value 02/25/2023 12.31 (H) RBC (m/uL) Date Value 02/25/2023 5.32 (H) Hemoglobin (g/dL) Date Value 02/25/2023 13.6 Hematocrit (%) Date Value 02/25/2023 42.4 MCV (fL) Date Value 02/25/2023 79.7 (L) MCH (pg) Date Value 02/25/2023 25.6 (L) MCHC (g/dL) Date Value 02/25/2023 32.1 RDW-CV (%) Date Value 02/25/2023 16.1 (H) Platelet Count (k/uL) Date Value 02/25/2023 285 MPV (fL) Date Value 02/25/2023 10.0 Glucose (mg/dL) Date Value 01/09/2018 102 (H) BUN (mg/dL) Date Value 01/09/2018 18 Creatinine (mg/dL) Date Value 01/09/2018 0.83 Sodium (mmol/L) Date Value 01/09/2018 139 Potassium (mmol/L) Date Value 01/09/2018 3.7 Chloride (mmol/L) Date Value 01/09/2018 100 CO2 (mmol/L) Date Value 01/09/2018 28 Protein, Total (g/dL) Date Value 04/29/2021 6.3 Calcium (mg/dL) Date Value 01/09/2018 9.4 MEDICATIONS: pregabalin (LYRICA) 100 mg capsuleTake 1 capsule by mouth twice daily for 90 days.Disp: 180 capsuleRfl: 0 fluticasone-salmeterol (ADVAIR DISKUS) 500-50 mcg/dose dsdvInhale 1 Puff as instructed twice daily.Disp: 3 EachRfl: 3 montelukast (SINGULAIR) 10 mg tabletTAKE 1 TABLET DAILY AT BEDTIMEDisp: 90 tabletRfl: 3 guaiFENesin (MUCINEX) 600 mg 12 hr tabletTake 1 tablet by mouth twice daily.Disp: 180 tabletRfl: 3 Mucus Clearing Device deviProvide 1 mucus clearing device.Disp: 1 EachRfl: 0 levETIRAcetam ER (KEPPRA XR) 750 mg 24 hr tabletTake 1 tablet by mouth once daily.Disp: 90 tabletRfl: 1 albuterol (PROVENTIL) 2.5 mg /3 mL (0.083 %) nebulizer solutionUSE 3 ML VIA NEBULIZER EVERY 6 HOURS NEED OVER 5-15 KLAUS (more content not included)... [facility] 04-21-2023 Miscellaneous Notes Reply from [facility] : Outcome PA was already submitted for this patient and drug which was denied.;CaseId:[id number];Status:D enied;Appeal Information: Attention:ATTN: CLINICAL APPEALS DEPARTMENT [place] ; I am starting an appeal: Appeal : APPROVED from 04/21/2023-04/21/2024. . Pt will be notified of this through insurance. Nothing further needed Noted. Thank you In light of the below reply, a new Prior auth was started on [facility]. Await reply. If denied again , we will start an appeal. Suzanne Larsen MA Images from the original note were not included. Kandice Cornejo APRN.[employer] [facility] [place] Nurse Aleshia used to treat neuropathy possibly secondary to chemical exposure at [facility]. Last noted in OV with Dr. Gudino on 04/24/21. Images from the original note were not included. I completed a prior auth for the Lyrica. Insurance replied back as a DENIAL: Please review and advise if this was related to WTC ? documented in this encounter [facility] 04-19-2023 Miscellaneous Notes PDMP website checked and validated. All prescriptions have been APPROPRIATELY filled. No suspicious activity was identified. April 19, 2023 Kandice Cornejo APRN.JOANN Patient has been identified by name and date of : Yes Requested Prescriptions Pending Prescriptions Disp Refills pregabalin (LYRICA) 100 mg capsule 180 capsule 0 Sig: Take 1 capsule by mouth twice daily for 90 days. Last OV 12/23/2022 Next OV 04/29/2023 Assessment/Plan: G62.9 Neuropathy (primary encounter diagnosis) Comment: Sx stable other than recent exacerbation due to running out of medication. Exam remains unchanged. Will continue Lyrica 100mg BID and Keppra XR 750mg. RF provided. G25.81 RLS (restless legs syndrome) Comment: Symptoms remain stable. Currently taking Lyrica 100mg BID and Keppra XR 750mg. G47.33 SANTHOSH (obstructive sleep apnea) Comment: Download reviewed and AHI normalized. No concerns regarding mask fit or pressure. Continue to remain complaint with PAP and clean and replace equipment regularly. M54.50 Low back pain, unspecified back pain laterality, unspecified chronicity, unspecified whether sciatica present M54.31 Sciatica of right side Comment: Continues to follow with [facility]. Lyrica 100mg BID. H93.13 Tinnitus of both ears R42 Vertigo Comment: Pt reporting increase in intensity of constant tinnitus. Tinnitus present since 9-11. Also noting vertigo. MRI brain completed since time of last appointment and was unremarkable (stable lipoma). Currently following with ENT for workup for possible Meniere's. Audiogram scheduled for February. Continue follow up with ENT. Kandice Cornejo APRN.[employer] I spent a total of 45 minutes on the date of the service which included preparing to see the patient, [id number] patient care, completing clinical documentation, obtaining and/or reviewing separately obtained history, performing a medically appropriate examination, counseling and educating the patient/family/caregiver, and ordering medications, tests, or procedures. RX INSTRUCTIONS: Julisa Townsend LPN Patient has been identified by name and date of : Yes, Provider Dr. Gudino Date 04/18/23 Time 2:10 pm Patient phones for refill(s): Requested Prescriptions Pending Prescriptions Disp Refills pregabalin (LYRICA) 100 mg capsule 180 capsule 0 Sig: Take 1 capsule by mouth twice daily for 90 days. Date of last office visit in primary care: 12/23/22 next apt 04/29/23 Last 2 Encounter Wt Readings: Date: Wt: 02/25/2023 99.8 kg (220 lb) 01/12/2023 98.2 kg (216 lb 6.4 oz) Previous labs/tests for medication: Not applicable Thank you. Katherine Townsend LPN documented in this encounter [facility] 04-18-2023 Miscellaneous Notes Patient phones requesting refills as follows: Requested Prescriptions Pending Prescriptions Disp Refills fluticasone-salmeterol (ADVAIR DISKUS) 500-50 mcg/dose dsdv 3 Each 3 Sig: Inhale 1 Puff as instructed twice daily. Please review and advise. Mary Hubbard RN documented in this encounter [facility] 04-07-2023 Miscellaneous Notes Patient phones requesting refills as follows: Requested Prescriptions Pending Prescriptions Disp Refills montelukast (SINGULAIR) 10 mg tablet [Pharmacy Med Name: MONTELUKAST SODIUM TABS 10MG] 90 tablet 3 Sig: TAKE 1 TABLET DAILY AT BEDTIME Please review and advise. Celia Jenkins LPN documented in this encounter [facility] 02-25-2023 Note HNO ID: [id number] Author: RT Melquiades(R) Service: ? Author Type: Technologist Type: Progress Notes Filed: 02/25/2023 11:04 AM Note Text: Radiology Service Progress Note PATIENT NAME: Rajwinder Wylie DATE OF SERVICE: February 25, 2023 TIME: 11:03 AM PATIENT IDENTITY VERIFICATION COMPLETED USING TWO (2) IDENTIFIERS: Name and Date of confirmed by patient verbally. FALL SCREENING: Has the patient had 2 falls in the last year or 1 fall with injury or currently using an Ambulatory Assistive Device (Walker, Cane, Wheelchair, Crutches, etc.)? No PATIENT GENDER DATA: Female. status: : No status: NO. PATIENT RELEVANT IMPLANT DATA REVIEWED: Not Applicable RADIOLOGY DEPARTMENT: General X-ray: Exam(s) Completed: Chest X-Ray PERIPHERAL IV DATA: Not applicable SIGNED BY: RT Melquiades(R) February 25, 2023 11:[address] [facility] 02-25-2023 Note HNO ID: [id number] Author: Analia Rivera PA-C Service: ? Author Type: Physician Nurse Informatics Educator Type: Progress Notes Filed: 02/25/2023 4:15 PM Note Text: Patient: Rajwinder Wylie PCP: Davion Peoples MD CC: acute visit HPI: Rajwinder Wylie 72 year old female female former 10 pack year smoker with PMH significant for asthma, SANTHOSH on CPAP, RA, Sjogren's, CAD, s/p PCI 01/26/2023 at [facility], HTN and pulmonary nodularity. 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 Did have allergies as child, required immunotherapy. Asthma had been under good control until COVID infection in August. Today, patient reports she was evaluated by PCP on 02/11 secondary to increased cough. She was started on Prednisone burst and Doxycycline. Returned to PCP 02/18 with persistent symptoms and placed on prednisone taper. Patient reports no improvement in symptoms despite treatment. Reports non-productive cough. Had been taking Mucinex without any relief. Frequent wheezing. Increased dyspnea with minimal exertion. States she is sweating constantly. No documented fevers. PAST MEDICAL HISTORY Diagnosis Date Asthma First degree heart block 05/16/2013 Outside post 9-11 follow-up screening, 2012. Hypertension 05/16/2013 Lyme disease Meniere disease Obesity 05/16/2013 SANTHOSH (obstructive sleep apnea) 05/16/2013 CPAP 11. Claims to be CPAP compliant. RA (rheumatoid arthritis) ([facility]) 2013 Sinus arrhythmia 05/16/2013 Outside post 9-11 follow-up screening, 2012. Sinusitis Sjogren's disease ([facility]) Allergies: Bactrim [Sulfametho* Hives Erythromycin GI Upset, Vomiting Nut - Unspecified Anaphylaxis Comment:Tree Nuts. Anaphylaxis. Environmentals [Oth* Unknown Comment:Dust, tobacco, pollen, ragweed Pineapple Other: See Comments Comment:Causes mouth to feel like razors guaiFENesin (MUCINEX) 600 mg 12 hr tabletTake 1 tablet by mouth twice daily.Disp: 180 tabletRfl: 3 Mucus Clearing Device deviProvide 1 mucus clearing device.Disp: 1 EachRfl: 0 levETIRAcetam ER (KEPPRA XR) 750 mg 24 hr tabletTake 1 tablet by mouth once daily.Disp: 90 tabletRfl: 1 pregabalin (LYRICA) 100 mg capsuleTake 1 capsule by mouth twice daily for 90 days.Disp: 180 capsuleRfl: 0 fluticasone-salmeterol (ADVAIR DISKUS) 500-50 mcg/dose dsdvInhale 1 Puff as instructed twice daily.Disp: 3 EachRfl: 3 montelukast (SINGULAIR) 10 mg tabletTake 1 tablet by mouth daily at bedtime.Disp: 90 tabletRfl: 3 albuterol (PROVENTIL) 2.5 mg /3 mL (0.083 %) nebulizer solutionUSE 3 ML VIA NEBULIZER EVERY 6 HOURS NEED OVER 5-15 MINUTES FOR WHEEZING AND SHORTNESS OF BREATHDisp: 375 mLRfl: 3 albuterol HFA (PROAIR HFA) 90 mcg/actuation inhalerInhale 2 Puffs as instructed every 4 hours as needed for wheezing/shortness of breath.Disp: 3 EachRfl: 3 ipratropium (ATROVENT) 0.02 % nebulizer solutionUse 2.5 mL via nebulizer four times daily as needed for wheezing/shortness of breath. OVER 5-15 MINUTES FOR WHEEZING OR SHORTNESS OF BREATHDisp: 900 mLRfl: 3 JARDIANCE 10 mg tabletTake 10 mg by mouth once daily.Disp: Rfl: CPAPIn-line filter - Respironics Device. Lifetime supplies.Disp: 1 DeviceRfl: 99 CPAPPlease set at 10-20 cmH2O with humidity with download to us in 4 weeks. Also please provide mask fitting (dreamwear under the nose nasal mask).Disp: 1 DeviceRfl: 99 potassium chloride 20 mEq TbERTake 1 tablet by mouth once daily.Disp: Rfl: atorvastatin (LIPITOR) 20 mg tabletTake 20 mg by mouth once daily.Disp: Rfl: leflunomide (ARAVA) 20 mg tabletTake 20 mg by mouth once daily.Disp: Rfl: Nebulizer Accessories kitProvide nebulizer kit.Disp: 1 KitRfl: 3 Nebulizer and Compressor For NebProvide nebulizer.Disp: 1 EachRfl: 0 CPAPPlease eval pts machine as not providing downloads. If you can get download please send us copy. Also please provided mask fitting as pts mask leaking.Disp: 1 DeviceRfl: 99 ipratropium (ATROVENT) 0.02 % nebulizer solutionUse 2.5 mL via nebulizer one time only for 1 dose. OVER 5-15 MINUTES FOR WHEEZING OR SHORTNESS OF BREATHDisp: 2.5 mLRfl: 0 predniSONE (DELTASONE) 10 mg tablet2 DAILY FOR 1 WEEK THEN 1 TAB DAILY FOR 1 WEEK. KEEP REMAINDER ON HAND FOR FUTURE FLARESDisp: 60 tabletRfl: 1 venlafaxine ER (EFFEXOR XR) 150 mg 24 hr mg once daily.Disp: Rfl: fluticasone (FLONASE) 50 mcg/actuation nasal sprayUse 1 [place] in each nostril once daily.Disp: 1 BottleRfl: 5 losartan (COZAAR) 50 mg tabletTake 1 tablet by mouth once daily.Disp: Rfl: citalopram (CELEXA) 20 mg tabletTake 40 mg by mouth once daily. Disp: Rfl: QUEtiapine (SEROQUEL) 100 mg tabletTake 200 mg by mouth daily at bedtime. Disp: Rfl: amLODIPine 5 mg ORAL tabletTake 5 mg by mouth once daily. Disp: Rfl: hydrochlorothiazide 25 mg ORAL tabletTake 12.5 mg by mouth once daily. Disp: Rfl: ALPRAZolam (XANAX) 0.5 mg tabletTake 0.5 mg by mouth at bedtime as needed.Disp: (more content not included)... [facility] 02-25-2023 History of Presen t illness Narrative Radiology Service Progress Note PATIENT NAME: Rajwinder Wylie DATE OF SERVICE: February 25, 2023 TIME: 11:03 AM PATIENT IDENTITY VERIFICATION COMPLETED USING TWO (2) IDENTIFIERS: Name and Date of confirmed by patient verbally. FALL SCREENING: Has the patient had 2 falls in the last year or 1 fall with injury or currently using an Ambulatory Assistive Device (Walker, Cane, Wheelchair, Crutches, etc.)? No PATIENT GENDER DATA: Female. status: : No status: NO. PATIENT RELEVANT IMPLANT DATA REVIEWED: Not Applicable RADIOLOGY DEPARTMENT: General X-ray: Exam(s) Completed: Chest X-Ray PERIPHERAL IV DATA: Not applicable SIGNED BY: RT Melquiades(Candie) February 25, 2023 11:03 AM documented in this encounter [facility] 02-25-2023 History of Presen t illness Narrative Images from the original note were not included. Patient: Rajwinder Wylie PCP: Davion Peoples MD CC: acute visit HPI: Rajwinder Wylie 72 year old female female former 10 pack year smoker with PMH significant for asthma, SANTHOSH on CPAP, RA, Sjogren's, CAD, s/p PCI 01/26/2023 at [facility], HTN and pulmonary nodularity. 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 Did have allergies as child, required immunotherapy. Asthma had been under good control until COVID infection in August. Today, patient reports she was evaluated by PCP on 02/11 secondary to increased cough. She was started on Prednisone burst and Doxycycline. Returned to PCP 02/18 with persistent symptoms and placed on prednisone taper. Patient reports no improvement in symptoms despite treatment. Reports non-productive cough. Had been taking Mucinex without any relief. Frequent wheezing. Increased dyspnea with minimal exertion. States she is sweating constantly. No documented fevers. PAST MEDICAL HISTORY Diagnosis Date Asthma First degree heart block 05/16/2013 Outside post 9-11 follow-up screening, 2012. Hypertension 05/16/2013 Lyme disease Meniere disease Obesity 05/16/2013 SANTHOSH (obstructive sleep apnea) 05/16/2013 CPAP 11. Claims to be CPAP compliant. RA (rheumatoid arthritis) ([facility]) 2013 Sinus arrhythmia 05/16/2013 Outside post 9-11 follow-up screening, 2012. Sinusitis Sjogren's disease ([facility]) Allergies: Bactrim [Sulfametho* Hives Erythromycin GI Upset, Vomiting Nut - Unspecified Anaphylaxis Comment:Tree Nuts. Anaphylaxis. Environmentals [Oth* Unknown Comment:Dust, tobacco, pollen, ragweed Pineapple Other: See Comments Comment:Causes mouth to feel like razors guaiFENesin (MUCINEX) 600 mg 12 hr tablet^Take 1 tablet by mouth twice daily.^Disp: 180 tablet^Rfl: 3 Mucus Clearing Device jeannine^Provide 1 mucus clearing device.^Disp: 1 Each^Rfl: 0 levETIRAcetam ER (KEPPRA XR) 750 mg 24 hr tablet^Take 1 tablet by mouth once daily.^Disp: 90 tablet^Rfl: 1 pregabalin (LYRICA) 100 mg capsule^Take 1 capsule by mouth twice daily for 90 days.^Disp: 180 capsule^Rfl: 0 fluticasone-salmeterol (ADVAIR DISKUS) 500-50 mcg/dose dsdv^Inhale 1 Puff as instructed twice daily.^Disp: 3 Each^Rfl: 3 montelukast (SINGULAIR) 10 mg tablet^Take 1 tablet by mouth daily at bedtime.^Disp: 90 tablet^Rfl: 3 albuterol (PROVENTIL) 2.5 mg /3 mL (0.083 %) nebulizer solution^USE 3 ML VIA NEBULIZER EVERY 6 HOURS NEED OVER 5-15 MINUTES FOR WHEEZING AND SHORTNESS OF BREATH^Disp: 375 mL^Rfl: 3 albuterol HFA (PROAIR HFA) 90 mcg/actuation inhaler^Inhale 2 Puffs as instructed every 4 hours as needed for wheezing/shortness of breath.^Disp: 3 Each^Rfl: 3 ipratropium (ATROVENT) 0.02 % nebulizer solution^Use 2.5 mL via nebulizer four times daily as needed for wheezing/shortness of breath. OVER 5-15 MINUTES FOR WHEEZING OR SHORTNESS OF BREATH^Disp: 900 mL^Rfl: 3 JARDIANCE 10 mg tablet^Take 10 mg by mouth once daily.^Disp: ^Rfl: CPAP^In-line filter - Respironics Device. Lifetime supplies.^Disp: 1 Device^Rfl: 99 CPAP^Please set at 10-20 cmH2O with humidity with download to us in 4 weeks. Also please provide mask fitting (dreamwear under the nose nasal mask).^Disp: 1 Device^Rfl: 99 potassium chloride 20 mEq TbER^Take 1 tablet by mouth once daily.^Disp: ^Rfl: atorvastatin (LIPITOR) 20 mg tablet^Take 20 mg by mouth once daily.^Disp: ^Rfl: leflunomide (ARAVA) 20 mg tablet^Take 20 mg by mouth once daily.^Disp: ^Rfl: Nebulizer Accessories kit^Provide nebulizer kit.^Disp: 1 Kit^Rfl: 3 Nebulizer and Compressor For Neb^Provide nebulizer.^Disp: 1 Each^Rfl: 0 CPAP^Please eval pts machine as not providing downloads. If you can get download please send us copy. Also please provided mask fitting as pts mask leaking.^Disp: 1 Device^Rfl: 99 ipratropium (ATROVENT) 0.02 % nebulizer solution^Use 2.5 mL via nebulizer one time only for 1 dose. OVER 5-15 MINUTES FOR WHEEZING OR SHORTNESS OF BREATH^Disp: 2.5 mL^Rfl: 0 predniSONE (DELTASONE) 10 mg tablet^2 DAILY FOR 1 WEEK THEN 1 TAB DAILY FOR 1 WEEK. KEEP REMAINDER ON HAND FOR FUTURE FLARES^Disp: 60 tablet^Rfl: 1 venlafaxine ER (EFFEXOR XR) 150 mg 24 hr capsule^300 mg once daily.^Disp: ^Rfl: fluticasone (FLONASE) 50 mcg/actuation nasal spray^Use 1 [place] in each nostril once daily.^Disp: 1 Bottle^Rfl: 5 losartan (COZAAR) 50 mg tablet^Take 1 tablet by mouth once daily.^Disp: ^Rfl: citalopram (CELEXA) 20 mg tablet^Take 40 mg by mouth once daily. ^Disp: ^Rfl: QUEtiapine (SEROQUEL) 100 mg tablet^Take 200 mg by mouth daily at bedtime. ^Disp: ^Rfl: amLODIPine 5 mg ORAL tablet^Take 5 mg by mouth once daily. ^Disp: ^Rfl: hydrochlorothiazide 25 mg ORAL tablet^Take 12.5 mg by mouth once daily. ^Disp: ^Rfl: ALPRAZolam (XANAX) 0.5 mg tablet^Take 0.5 mg by mouth at bedtime as needed.^Disp: ^Rfl: Social History Tobacco Use Smoking status: Former Packs/day: 1.00 Years: 10.00 Pack years: 10.00 Types: Cigarettes Quit date: 08/22/1981 Years since quittin.5 Smokeless tobacco: Never Tobacco comments: No smoking in childhood home. Quit cold turkey. No current household ETS smoking, 02/12/19. Vaping Use Vaping Use: Never used Substance Use Topics Alcohol use: Yes Comment: Very occasional, once a month or less. TO 05/21/2014. Drug use: No Family History Problem Relation Age of Onset Diabetes Mother Onset age 18, age 81. Heart disease Mother 2 valve surgeries. Cancer Father 82 Esophageal cancer Heart Brother Atrial fib. Cancer Paternal Grandmother Lung, mets to brain. PAST SURGICAL HISTORY Procedure Laterality Date ANES ARTHROSCOPIC TOTAL SHOULDER REPLACEMENT Left 04/05/2017 Cory KNEE ARTHROSCOP MENISCUS REPAIR MED/LAT 1998 and 2010 RECONSTRUCTION ROTATOR CUFF AVULSION CHRONIC 1989 TONSILLECTOMY & ADENOIDECTOMY AGE 13/> I reviewed the past medical history, family history, social history and surgical history with changes noted above and updated in EMR. IMMUNIZATIONS Prevnar 13 - 06/26/2018 Pneumovax 23 - 05/06/2020, 06/20/2018, 05/31/2016, 07/17/2012 Influenza - 05/25/2022 COVID-19 - 05/25/2022, 12/30/2021, 04/17/2021, 11/20/2020, 10/30/2020 ROS: General: Generally feels ill. Appetite fair. Eyes, Ears, nose, throat: Persistent post nasal drip, rhinorrhea. No purulent nasal discharge, epistaxis. No hoarseness. Vision stable. Cardiac: No angina, edema, orthopnea. Resp: See HPI. GI: No heartburn, dysphagia. Musculoskeletal: No new pain. Neuro: No headache, focal weakness, tremor. Skin: No new skin changes or rash. Otherwise negative. PHYSICAL EXAMINATION: BP (P) 138/84 Pulse (!) (P) 121 Resp (P) 20 Wt 99.8 kg (220 lb) SpO2 (P) 98% BMI 37.76 kg/m T: 96.8 F Gen: No acute distress. Cooperative with examination. HEENT: Normocephalic. Sclera, conjunctiva clear. Oral hygeine and dentition good. No thrush. Resp: No stridor, accessory respiratory muscle use, supra-sternal or intercostal retractions. No wheezes, crackles. CV: Regular rythm. Heart tones normal. Radial pulses normal. Abd: Non distended. MSK: No kyphoscoliosis. Ext: Warm and well perfused. No clubbing, cyanosis, edema. No calf tenderness. Skin: No rash, ecchymoses. Neuro: Mental status normal. Affect normal. No tremor. DATA: PFT, 04/22/2022 IMPRESSION: Spirometry is normal. Electronically Signed On 04-22-2022 16:31:45 EDT by Hailey Hernandez M.D. CT chest, 05/31/2022 IMPRESSION: 1. Interval improvement in focal air space consolidative groundglass opacities within the bilateral lower lobes suggesting improvement in infectious/inflammatory process. 2. Stable scattered subcentimeter pulmonary nodules. No new or enlarging pulmonary nodule. Comparison: CT chest dated March 10, 2022 RESULT: Limitations: None. Lines, tubes, and devices: None. Lung parenchyma and airways: Stable punctate 2 mm posterior right subpleural upper lobe nodule (5, 48). Stable 2 mm right upper lobe central pulmonary nodule (5, 64). Stable 2 mm right upper lobe subpleural nodule (5, 74). Stable 2 mm additional right upper lobe pulmonary nodule (5, 83). Stable 3 mm anterior right upper lobe nodule (5, 90). Stable punctate 2 mm left upper lobe subpleural nodule (5, 37). Interval improvement in previously noted groundglass consolidative opacity posterior right lower lobe with mild residual curvilinear opacity remaining, likely curvilinear atelectasis/scarring. Significant interval improvement in patchy groundglass consolidative opacity in the posterior left lower lobe subpleural region. Linear atelectasis/scarring in the left lower lobe. Pleural space: No pleural effusion. No pleural thickening. Lower neck, lymph nodes, and mediastinum: The imaged thyroid gland is normal. No lymphadenopathy in the supraclavicular, axillary, mediastinal, or hilar regions. Heart, pericardium, and thoracic vessels: The thoracic aorta and main pulmonary artery are normal in caliber. The cardiac chambers are normal in size. Coronary artery atherosclerotic calcifications are noted, although the study is not optimized for coronary assessment. No pericardial effusion or thickening. Bones and soft tissues: Left shoulder prosthesis present. Degenerative changes in the spine. Upper abdomen: Fatty atrophy of the pancreas. Few scattered colonic diverticuli. No definite additional abnormality in the imaged upper abdomen within the limits of noncontrast technique. Echocardiogram, 06/04/2022 CONCLUSIONS: - Technically difficult exam due to body habitus. - Exam indication: Shortness of Breath - The left ventricle is small. Left ventricular systolic function is normal. EF = 70 5% (2D 4-ch.) Left ventricular diastolic function was not evaluated. - The right ventricle is normal in size. Right ventricular systolic function is normal. - There is mild to moderate aortic valve stenosis caused by calcified valve. AV area is 1.04 cm (0.49 cm /m ) by continuity, VTI. The peak gradient is 17 mmHg, the mean gradient is 11 mmHg and the dimensionless valve index is 0.41. - Patient was tachycardic throughout entire exam. - The patient has not had a prior CC echocardiographic exam for comparison. SSMENT/PLAN: 1. Dyspnea and respiratory abnormalities - ICD9: 786.09, ICD10: R06.00, R06.89 (primary diagnosis) CXR today. Patient with increased HR, will check CBC. No fever in the office. No recent travel or calf pain noted. - XR CHEST 2V FRONTAL/LAT - CBC + DIFF 2. Acute bronchitis, unspecified organism - ICD9: 466.0, ICD10: J20.9 Treat with Augmentin to also cover sinus congestion. Advised to eat yogurt while on antibiotics. Complete course of Prednisone per PCP. - AMOXICILLIN 875 MG-POTASSIUM CLAVULANATE 125 MG TABLET 3. Sinobronchitis - ICD9: 473.9, 490, ICD10: J32.9, J40 See #2. - AMOXICILLIN 875 MG-POTASSIUM CLAVULANATE 125 MG TABLET 4. Severe persistent asthma without complication - ICD9: 493.90, ICD10: J45.50 Continue Advair with as needed Albuterol Continue Singulair. Patient may use Mucinex to help thin secretions. However, with her Sjogren's I advised her to make sure she is not getting too dried out. Acapella device to help with secretions. 5. COVID-19 long hauler - ICD9: 139.8, ICD10: U09.9 6. Sjogren's syndrome, with unspecified organ involvement (HCC) - ICD9: 710.2, ICD10: M35.00 At [facility] for development of bronchiectasis. 7. SANTHOSH (obstructive sleep apnea) - ICD9: 327.23, ICD10: G47.33 Continue CPAP with all sleep. 8. Lung nodules - ICD9: 793.19, ICD10: R91.[address] chest in May 2023. Portions of this documentation were copied and pasted from previous office visit notes in order to provide a cohesive continuity of the history. The note has been reviewed and edited and updated as necessary. Analia Rivera PA-C documented in this encounter [facility] 02-25-2023 Nurse Note 02/11- saw PCP and started 40mg of prednisone x5 days. 02/13- Started Doxycyline 100mg BID x7 days 02/13- PCP extended taper of prednisone, started 30mg today documented in this encounter [facility] 01-25-2023 Miscellaneous Notes Records sent to [facility]. Celia Jenkins LPN Patient called in requesting her pulm records be sent to [facility] at fax number [phone] due to being informed that her 05/02 benefits are at risk of being lost without records. Patient will be presenting to office to sign transfer of records. 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 Joann Nj LPN documented in this encounter [facility] 01-12-2023 Note HNO ID: [id number] Author: Analia Rivera PA-C Service: ? Author Type: Physician Nurse Informatics Educator Type: Progress Notes Filed: 01/12/2023 4:07 PM Note Text: Patient: Rajwinder Wylie PCP: Davion Peoples MD CC: pre-op eval HPI: Rajwinder Wylie 72 year old female former 10 pack year smoker with PMH significant for asthma, SANTHOSH on CPAP, RA, Sjogren's, HTN and pulmonary nodularity. 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 Did have allergies as child, required immunotherapy. Asthma had been under good control until COVID infection in August. Sense of taste and smell have not returned and she has persistent fatigue. CT chest surveillance in February 2022 showed new areas of patchy GCO likely due to previous Covid infection. Treated with a course of doxy and respiratory symptoms improved. Updated CT chest showed improvement. Patient presents today because she may be undergoing orthopedic surgery and wanted to get our opinion for pulmonary clearance. She is consistently compliant with prescribed maintenance Rx Advair and Singulair. Occasionally uses rescue bronchodilator, but not on a daily basis. Taking Mucinex 1 tablet twice daily. Daily cough with thick sputum that is difficult to expel. No hemoptysis.Frequent wheezing in the morning. No significant dyspnea. Consistently wearing CPAP with all sleep. Follow with Dr. Gudino for sleep medicine. PAST MEDICAL HISTORY Diagnosis Date Asthma First degree heart block 05/16/2013 Outside post 9-11 follow-up screening, 2012. Hypertension 05/16/2013 Lyme disease Meniere disease Obesity 05/16/2013 SANTHOSH (obstructive sleep apnea) 05/16/2013 CPAP 11. Claims to be CPAP compliant. RA (rheumatoid arthritis) ([facility]) 2014 Sinus arrhythmia 05/16/2013 Outside post 911 follow-up screening, 2012. Sinusitis Sjogren's disease ([facility]) Allergies: Bactrim [Sulfametho* Hives Erythromycin GI Upset, Vomiting Nut - Unspecified Anaphylaxis Comment:Tree Nuts. Anaphylaxis. Environmentals [Oth* Unknown Comment:Dust, tobacco, pollen, ragweed Pineapple Other: See Comments Comment:Causes mouth to feel like razors levETIRAcetam ER (KEPPRA XR) 750 mg 24 hr tabletTake 1 tablet by mouth once daily.Disp: 90 tabletRfl: 1 pregabalin (LYRICA) 100 mg capsuleTake 1 capsule by mouth twice daily for 90 days.Disp: 180 capsuleRfl: 0 fluticasone-salmeterol (ADVAIR DISKUS) 500-50 mcg/dose dsdvInhale 1 Puff as instructed twice daily.Disp: 3 EachRfl: 3 guaiFENesin (MUCINEX) 600 mg 12 hr tabletTake 1 tablet by mouth twice daily.Disp: 180 tabletRfl: 3 montelukast (SINGULAIR) 10 mg tabletTake 1 tablet by mouth daily at bedtime.Disp: 90 tabletRfl: 3 albuterol (PROVENTIL) 2.5 mg /3 mL (0.083 %) nebulizer solutionUSE 3 ML VIA NEBULIZER EVERY 6 HOURS NEED OVER 5-15 MINUTES FOR WHEEZING AND SHORTNESS OF BREATHDisp: 375 mLRfl: 3 albuterol HFA (PROAIR HFA) 90 mcg/actuation inhalerInhale 2 Puffs as instructed every 4 hours as needed for wheezing/shortness of breath.Disp: 3 EachRfl: 3 ipratropium (ATROVENT) 0.02 % nebulizer solutionUse 2.5 mL via nebulizer four times daily as needed for wheezing/shortness of breath. OVER 5-15 MINUTES FOR WHEEZING OR SHORTNESS OF BREATHDisp: 900 mLRfl: 3 JARDIANCE 10 mg tabletTake 10 mg by mouth once daily.Disp: Rfl: CPAPIn-line filter - Respironics Device. Lifetime supplies.Disp: 1 DeviceRfl: 99 CPAPPlease set at 10-20 cmH2O with humidity with download to us in 4 weeks. Also please provide mask fitting (dreamwear under the nose nasal mask).Disp: 1 DeviceRfl: 99 potassium chloride 20 mEq TbERTake 1 tablet by mouth once daily.Disp: Rfl: atorvastatin (LIPITOR) 20 mg tabletTake 20 mg by mouth once daily.Disp: Rfl: leflunomide (ARAVA) 20 mg tabletTake 20 mg by mouth once daily.Disp: Rfl: Nebulizer Accessories kitProvide nebulizer kit.Disp: 1 KitRfl: 3 Nebulizer and Compressor For NebProvide nebulizer.Disp: 1 EachRfl: 0 CPAPPlease eval pts machine as not providing downloads. If you can get download please send us copy. Also please provided mask fitting as pts mask leaking.Disp: 1 DeviceRfl: 99 ipratropium (ATROVENT) 0.02 % nebulizer solutionUse 2.5 mL via nebulizer one time only for 1 dose. OVER 5-15 MINUTES FOR WHEEZING OR SHORTNESS OF BREATHDisp: 2.5 mLRfl: 0 predniSONE (DELTASONE) 10 mg tablet2 DAILY FOR 1 WEEK THEN 1 TAB DAILY FOR 1 WEEK. KEEP REMAINDER ON HAND FOR FUTURE FLARESDisp: 60 tabletRfl: 1 venlafaxine ER (EFFEXOR XR) 150 mg 24 hr [id number] mg once daily.Disp: Rfl: fluticasone (FLONASE) 50 mcg/actuation nasal sprayUse 1 [place] in each nostril once daily.Disp: 1 BottleRfl: 5 losartan (COZAAR) 50 mg tabletTake 1 tablet by mouth once daily.Disp: Rfl: citalopram (CELEXA) 20 mg tabletTake 40 mg by mouth once daily. Disp: Rfl: QUEtiapine (SEROQUEL) 100 mg tabletTake 200 mg by mouth daily at bedtime. Disp: Rfl: amLODIPine 5 mg ORAL tabletTake 5 m (more content not included)... [facility] 01-03-2023 Miscellaneous Notes Patient scheduled by PSS. Celia Jenkins LPN documented in this encounter [facility] 12-23-2022 Note HNO ID: [id number] Author: Kandice Cornejo APRN.[employer] Service: ? Author Type: Nurse Practitioner Type: Progress Notes Filed: 12/23/2022 12:44 PM Note Text: [facility] [place] Follow-up Visit Follow-up note December 23, 2022 HPI: Ms. Wylie presents today for a follow-up visit. Per her previous visit on 01/07/22: G62.9 Neuropathy (primary encounter diagnosis) Comment: Stable and controlled with use of Lyrica 100mg BID and Keppra XR 750mg. Notes only occasional breakthrough pains but otherwise feels pain is well controlled. Discussed increase in Lyrica as noted below but will hold off at this time. G25.81 RLS (restless legs syndrome) Comment: Stable with use of Lyrica 100mg BID. RF provided. R51.9 Nonintractable episodic headache, unspecified headache type G45.9 Transient cerebral ischemia, unspecified type R47.01 Aphasia R26.89 Balance problems Comment: Currently taking Keppra XR 750mg and Lyrica 100mg BID. Pt reports that headaches are now occurring daily and are longer in duration. Also noting episode of expressive aphasia since previous COVID infection. Notes that she frequently veers to the left when walking as well which is abnormal and new for her. Given worsening of headache following COVID infection as well as concern for possible associated hypercoagulable state as well as new symptoms of balance and speech concerns, will proceed with MRI of brain for further evaluation for intracranial origin. Discussed possible increase in Lyrica dose at this time for further improvement of headaches, however, will hold off until after imaging complete. G47.33 SANTHOSH (obstructive sleep apnea) Comment: Download reviewed as noted above. No concerns regarding mask fit. AHI normalized. No changes at this time. Continue to remain complaint with PAP and clean and replace equipment regularly. M54.50 Low back pain, unspecified back pain laterality, unspecified chronicity, unspecified whether sciatica present M54.31 Sciatica of right side Comment: Following with [facility]. Continue Lyrica 100mg BID. Has Sjogren's and RA. Sjogren's dx after time of last appointment. Also has new dx of CSU (chronic spontaneous urticaria). Varying locations of itching. Was started on prednisone until itching subsided. Also had an eye procedure. States she had a contact placed with amniotic fluid. Removed the contact Tuesday given SE. Was not sleeping well. Used gel drops until Tuesday. Found to have a scratch on her cornea. Now has new contact placed. Was supposed to have a stress test today but had to cancel d/t eye issues. Has heart black and mild stenosis. Also in afib. Had vertigo the whole month of October. Was unable to exercise or eat well. Saw ENT and possible Meniere's (?). Scheduled for hearing test in February. Four lung nodules. Will be having CT. Has new CPAP machine. Does not feel well rested. Will nap in the morning. No mask or pressure issues. Cleaning device regularly. RLS has been fine. States she recently ran out of [employer] and now having pain in fingers and toes. Has had tinnitus; worse since . Since vertigo in October states tinnitus has doubled and is constant. Still following with [facility] for her low back. Will be having surgery on R elbow and shoulder after fall. Two weeks later fell and tore a ligament in her wrist. Following with Dr. Blue for cardiac/BP concerns contributing to falls. Denies vision loss or neuro vision changes, speech changes, focal weakness. 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 Was following with rheum but her MD passed. Has been awaiting new rheum appointment. Stopped Humira. On Arava. *PAP download reviewed. Worn for 89/90 days for an average of 6 hours and 7 minutes. Settings 10-20cm H2O. AHI of 3.6. Avg time in large leak 6 sec. PAST MEDICAL HISTORY Diagnosis Date Asthma First degree heart block 05/16/2013 Outside post 05-02 follow-up screening, 2012. Hypertension 05/16/2013 Lyme disease Meniere disease Obesity 05/16/2013 SANTHOSH (obstructive sleep apnea) 05/16/2013 CPAP 11. Claims to be CPAP compliant. RA (rheumatoid arthritis) ([facility]) 2013 Sinus arrhythmia 05/16/2013 Outside post 05-02 follow-up screening, 2012. Sinusitis Sjogren's disease ([facility]) PAST SURGICAL HISTORY Procedure Laterality Date ANES ARTHROSCOPIC TOTAL SHOULDER REPLACEMENT Left 04/05/2017 Cory KNEE ARTHROSCOP MENISCUS REPAIR MED/LAT 1998 and 2010 RECONSTRUCTION ROTATOR CUFF AVULSION CHRONIC 1989 TONSILLECTOMY AND ADENOIDECTOMY AGE 13/> Current Outpatient Medications on File Prior to Visit Medication Sig levETIRAcetam ER (KEPPRA XR) 750 mg 24 hr tablet TAKE 1 TABLET DAILY fluticasone-salmeterol (ADVAIR DISKUS) 500-50 mcg/dose dsdv Inhale 1 Puff as instructed twice daily. pregabalin (LYRICA) 100 mg capsule Take 1 capsule by mouth twice daily for 30 days. guaiFENesin (MUCINEX) 600 mg 12 hr tablet Ta (more content not included)... [facility] 12-23-2022 History of Presen t illness Narrative Images from the original note were not included. [facility] [place] Follow-up Visit Follow-up note December 23, 2022 HPI: Ms. Wylie presents today for a follow-up visit. Per her previous visit on 01/07/22: G62.9 Neuropathy (primary encounter diagnosis) Comment: Stable and controlled with use of Lyrica 100mg BID and Keppra XR 750mg. Notes only occasional breakthrough pains but otherwise feels pain is well controlled. Discussed increase in Lyrica as noted below but will hold off at this time. G25.81 RLS (restless legs syndrome) Comment: Stable with use of Lyrica 100mg BID. RF provided. R51.9 Nonintractable episodic headache, unspecified headache type G45.9 Transient cerebral ischemia, unspecified type R47.01 Aphasia R26.89 Balance problems Comment: Currently taking Keppra XR 750mg and Lyrica 100mg BID. Pt reports that headaches are now occurring daily and are longer in duration. Also noting episode of expressive aphasia since previous COVID infection. Notes that she frequently veers to the left when walking as well which is abnormal and new for her. Given worsening of headache following COVID infection as well as concern for possible associated hypercoagulable state as well as new symptoms of balance and speech concerns, will proceed with MRI of brain for further evaluation for intracranial origin. Discussed possible increase in Lyrica dose at this time for further improvement of headaches, however, will hold off until after imaging complete. G47.33 SANTHOSH (obstructive sleep apnea) Comment: Download reviewed as noted above. No concerns regarding mask fit. AHI normalized. No changes at this time. Continue to remain complaint with PAP and clean and replace equipment regularly. M54.50 Low back pain, unspecified back pain laterality, unspecified chronicity, unspecified whether sciatica present M54.31 Sciatica of right side Comment: Following with [facility]. Continue Lyrica 100mg BID. Has Sjogren's and RA. Sjogren's dx after time of last appointment. Also has new dx of CSU (chronic spontaneous urticaria). Varying locations of itching. Was started on prednisone until itching subsided. Also had an eye procedure. States she had a contact placed with amniotic fluid. Removed the contact Tuesday. Was not sleeping well. Used gel drops until Tuesday. Found to have a scratch on her cornea. Now has new contact placed. Was supposed to have a stress test today but had to cancel d/t eye issues. Has heart black and mild stenosis. Also in afib. Had vertigo the whole month of October. Was unable to exercise or eat well. Saw ENT and possible Meniere's (?). Scheduled for hearing test in February. Four lung nodules. Will be having CT. Has new CPAP machine. Does not feel well rested. Will nap in the morning. No mask or pressure issues. Cleaning device regularly. RLS has been fine. States she recently ran out of Lyrica and now having pain in fingers and toes. Has had tinnitus; worse since . Since vertigo in October states tinnitus has doubled and is constant. Still following with [facility] for her low back. Will be having surgery on R elbow and shoulder after fall. Two weeks later fell and tore a ligament in her wrist. Following with Dr. Blue for cardiac/BP concerns contributing to falls. Denies vision loss or neuro vision changes, speech changes, focal weakness. 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 Was following with rheum but her MD passed. Has been awaiting new rheum appointment. Stopped Humira. On Arava. *PAP download reviewed. Worn for 89/90 days for an average of 6 hours and 7 minutes. Settings 10-20cm H2O. AHI of 3.6. Avg time in large leak 6 sec. PAST MEDICAL HISTORY Diagnosis Date Asthma First degree heart block 05/16/2013 Outside post 9-11 follow-up screening, 2012. Hypertension 05/16/2013 Lyme disease Meniere disease Obesity 05/16/2013 SANTHOSH (obstructive sleep apnea) 05/16/2013 CPAP 11. Claims to be CPAP compliant. RA (rheumatoid arthritis) ([facility]) 2013 Sinus arrhythmia 05/16/2013 Outside post 9-11 follow-up screening, 2012. Sinusitis Sjogren's disease ([facility]) PAST SURGICAL HISTORY Procedure Laterality Date ANES ARTHROSCOPIC TOTAL SHOULDER REPLACEMENT Left 04/05/2017 Cory KNEE ARTHROSCOP MENISCUS REPAIR MED/LAT 1998 and 2010 RECONSTRUCTION ROTATOR CUFF AVULSION CHRONIC 1989 TONSILLECTOMY & ADENOIDECTOMY AGE 13/> Current Outpatient Medications on File Prior to Visit Medication Sig levETIRAcetam ER (KEPPRA XR) 750 mg 24 hr tablet TAKE 1 TABLET DAILY fluticasone-salmeterol (ADVAIR DISKUS) 500-50 mcg/dose dsdv Inhale 1 Puff as instructed twice daily. pregabalin (LYRICA) 100 mg capsule Take 1 capsule by mouth twice daily for 30 days. guaiFENesin (MUCINEX) 600 mg 12 hr tablet Take 1 tablet by mouth twice daily. montelukast (SINGULAIR) 10 mg tablet Take 1 tablet by mouth daily at bedtime. albuterol (PROVENTIL) 2.5 mg /3 mL (0.083 %) nebulizer solution USE 3 ML VIA NEBULIZER EVERY 6 HOURS NEED OVER 5-15 MINUTES FOR WHEEZING AND SHORTNESS OF BREATH albuterol HFA (PROAIR HFA) 90 mcg/actuation inhaler Inhale 2 Puffs as instructed every 4 hours as needed for wheezing/shortness of breath. ipratropium (ATROVENT) 0.02 % nebulizer solution Use 2.5 mL via nebulizer four times daily as needed for wheezing/shortness of breath. OVER 5-15 MINUTES FOR WHEEZING OR SHORTNESS OF BREATH JARDIANCE 10 mg tablet Take 10 mg by mouth once daily. CPAP In-line filter - Respironics Device. Lifetime supplies. CPAP Please set at 10-20 cmH2O with humidity with download to us in 4 weeks. Also please provide mask fitting (dreamwear under the nose nasal mask). potassium chloride 20 mEq TbER Take 1 tablet by mouth once daily. atorvastatin (LIPITOR) 20 mg tablet Take 20 mg by mouth once daily. leflunomide (ARAVA) 20 mg tablet Take 20 mg by mouth once daily. Nebulizer Accessories kit Provide nebulizer kit. Nebulizer and Compressor For Neb Provide nebulizer. CPAP Please eval pts machine as not providing downloads. If you can get download please send us copy. Also please provided mask fitting as pts mask leaking. ipratropium (ATROVENT) 0.02 % nebulizer solution Use 2.5 mL via nebulizer one time only for 1 dose. OVER 5-15 MINUTES FOR WHEEZING OR SHORTNESS OF BREATH predniSONE (DELTASONE) 10 mg tablet 2 DAILY FOR 1 WEEK THEN 1 TAB DAILY FOR 1 WEEK. KEEP REMAINDER ON HAND FOR FUTURE FLARES venlafaxine ER (EFFEXOR XR) 150 mg 24 hr capsule 300 mg once daily. fluticasone (FLONASE) 50 mcg/actuation nasal spray Use 1 [place] in each nostril once daily. losartan (COZAAR) 50 mg tablet Take 1 tablet by mouth once daily. citalopram (CELEXA) 20 mg tablet Take 40 mg by mouth once daily. QUEtiapine (SEROQUEL) 100 mg tablet Take 200 mg by mouth daily at bedtime. amLODIPine 5 mg ORAL tablet Take 5 mg by mouth once daily. hydrochlorothiazide 25 mg ORAL tablet Take 12.5 mg by mouth once daily. ALPRAZolam (XANAX) 0.5 mg tablet Take 0.5 mg by mouth at bedtime as needed. Current Facility-Administered Medications on File Prior to Visit Medication perflutren lipid microspheres 1.3 mL in NaCl (PF) 0.9% 10 mL injection (DEFINITY) sodium chloride 0.9 % (flush) 10 mL (BD POSIFLUSH) Social History Tobacco Use Smoking status: Former Packs/day: 1.00 Years: 10.00 Pack years: 10.00 Types: Cigarettes Quit date: 08/22/1981 Years since quittin.3 Smokeless tobacco: Never Tobacco comments: No smoking in childhood home. Quit cold turkey. No current household ETS smoking, 02/12/19. Vaping Use Vaping Use: Never used Substance Use Topics Alcohol use: Yes Comment: Very occasional, once a month or less. TO 05/21/2014. Drug use: No ALLERGIES Allergen Reactions Bactrim [Sulfametho* Hives Erythromycin GI Upset, Vomiting Nut - Unspecified Anaphylaxis Tree Nuts. Anaphylaxis. Environmentals [Oth* Unknown Dust, tobacco, pollen, ragweed Pineapple Other: See Comments Causes mouth to feel like razors Review of Systems: Cardiopulmonary: denies chest pain, palpitations, or skipped heart beats Respiratory: + shortness of breath GI/: denies recent nausea, vomiting, diarrhea, constipation, incontinence Musculoskeletal: denies + weakness, muscle atrophy, + joint ache/pain Back/spine: denies + low back or cervical pains (occasional) Neuro: denies tremors, loss of feeling, dizziness, seizure, blackout, paresthesia, facial paresthesia, facial weakness, difficulty in speech, slurring of words, dysarthria, dysphagia, memory loss, + headache, vision changes, + loss of hearing, + tinnitus Physical Exam: 12/23/22 0958 BP: 134/78 Pulse: 69 Resp: 16 Temp: 36.6 C (97.9 F) SpO2: 96% Weight: 97.5 kg (215 lb) Patient is alert and in no distress. Dress is appropriate. Mood is appropriate Breathing appears regular and unstressed Neurologic examination: Cognitively intact. No formal MMSE performed. CN: Pupils equal and reactive to light, extraocular movements intact with no nystagmus, face is symmetric with no facial droop, hearing intact bilaterally, tongue is midline with no deviation, shoulder shrug is symmetric. Motor exam shows 5/5 strength symmetric through the upper and lower extremities in all groups tested. Sensory intact to light touch in all extremities. Vibratory sensation is decreased in BLE. Decreased pinprick sensation to BLE. Deep tendon reflexes are symmetric at the biceps, brachioradialis, triceps, patella, and achilles bilaterally with exception of RUE which DAVID d/t pain from recent fall. Coordination: No dysmetria on finger to nose. No tremors noted. No drift seen. Gait normal in stance and pattern. Labs/studies: Previously Reviewed: EMG 06/05/21: 1. 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 Minimal active motor axon loss change is seen very distally. Foot muscle evaluation was deferred due to redness/swelling from recent toe amputation surgery. 2. Asymmetric absence of the right H reflex in the absence of clear chronic motor axon loss changes in S1-myotome muscles suggests the possibility of an intraspinal canal lesion (ie: radiculopathy) affecting only the S1 sensory root/segment, mild in degree electrically. 3. Isolated mild chronic (no active) motor axon loss changes in gluteus medius are of unclear clinical significance and may be related to focal trauma to the muscle, among other possibilities. Component Latest Ref Rng & Units 04/29/2021 Protein, Total 6.3 - 8.0 g/dL 6.3 Albumin 3.37 - 4.23 gm/dL 3.69 Alpha 1 Globulin 0.18 - 0.31 gm/dL 0.25 Alpha 2 Globulin 0.52 - 0.97 gm/dL 0.79 Beta Globulin 0.84 - 1.36 gm/dL 0.97 Gamma Globulin 0.70 - 1.44 gm/dL 0.59 (L) Interpretation (Prot Electro) SEE COMMENT M-Protein Location N/A M-Protein Concentration 0.00 gm/dL 0.00 SPE Staff Review Reviewed by Erin Bell MD ([id number]) Protein, Urine Random 0 - 20 mg/dL 5 Albumin, Urine (Prot Electro) % 35.7 Alpha 1 Globulin, Urine % 4.3 Alpha 2 Globulin, Urine % 26.1 Beta Globulin, Urine % 22.4 Gamma Globulin, Urine % 11.5 Interpretation (Urine Electro) SEE COMMENT Staff Review (Urine Electro) Reviewed by Erin Bell MD ([id number]) Hemoglobin A1C 4.3 - 5.6 % 6.8 (H) Estimated Average Glucose mg/dL 148 Vitamin B12 232 - 1,245 pg/mL 628 MMA 79 - 376 nmol/L 99 Ferritin 14.7 - 205.1 ng/mL 115.0 Copper 85 - 155 ug/dL 133 TSH 0.270 - 4.200 uU/mL 1.630 Free T4 0.9 - 1.7 ng/dL 0.8 (L) Assessment/Plan: G62.9 Neuropathy (primary encounter diagnosis) Comment: Sx stable other than recent exacerbation due to running out of medication. Exam remains unchanged. Will continue Lyrica 100mg BID and Keppra XR 750mg. RF provided. G25.81 RLS (restless legs syndrome) Comment: Symptoms remain stable. Currently taking Lyrica 100mg BID and Keppra XR 750mg. G47.33 SANTHOSH (obstructive sleep apnea) Comment: Download reviewed and AHI normalized. No concerns regarding mask fit or pressure. Continue to remain complaint with PAP and clean and replace equipment regularly. M54.50 Low back pain, unspecified back pain laterality, unspecified chronicity, unspecified whether sciatica present M54.31 Sciatica of right side Comment: Continues to follow with [facility]. Lyrica 100mg BID. H93.13 Tinnitus of both ears R42 Vertigo Comment: Pt reporting increase in intensity of constant tinnitus. Tinnitus present since 9-11. Also noting vertigo. MRI brain completed since time of last appointment and was unremarkable (stable lipoma). Currently following with ENT for workup for possible Meniere's. Audiogram scheduled for February. Continue follow up with ENT. Kandice Cornejo APRN.[employer] I spent a total of 45 minutes on the date of the service which included preparing to see the patient, [id number] patient care, completing clinical documentation, obtaining and/or reviewing separately obtained history, performing a medically appropriate examination, counseling and educating the patient/family/caregiver, and ordering medications, tests, or procedures. PDMP website checked and validated. All prescriptions have been APPROPRIATELY filled. No suspicious activity was identified. December 23, 2022 Kandice Cornejo APRN.[employer] documented in this encounter [facility] 11-15-2022 Note HNO ID: [id number] Author: William Cabrera MD Service: ? Author Type: Physician Type: Progress Notes Filed: 11/15/2022 4:42 PM Note Text: HPI Rajwinder Wylie is a 72 year old female who presents with recurrent vertigo. Patient states that for the last 10 years or so she has had episodes of recurrent vertigo patient presently is taking meclizine every day twice a day patient also uses Zofran as needed patient does complain of tinnitus which is worse on the left side which seems to get worse with the dizzy spells and her hearing seems to be is diminished as well patient recently had an MRI through neurology. ROS General Weight loss: No Fatigue: No Night sweats:No Cardiac Chest pain:No Fast heart rate:No Swelling in the feet:No Respiratory Short of breath:No Cough:No Wheezing:No Gastrointestinal Nausea:No Vomiting:No Indigestion:No Past medical history, family history, and social history reviewed. PE There were no vitals taken for this visit. General: Patient is awake, alert, NAD. Voice is normal. Skin: normal Eyes: Extraocular motion and Gaze is normal. Ears: Right external auditory canal is normal. TMJ: normal. Right tympanic membranes normal. Left external auditory canal is normal. Left tympanic membrane normal. Nose: Septum is normal. Turbinates are normal. Nasopharynx:normal Oral Cavity/Oropharynx: Lips normal Dentition normal Tongue normal. Tonsils normal. Palate and uvula normal. Pharynx posterior normal Hypopharynx: Base of tongue normal Pyriform sinus normal. Larynx: Vocal cords normal. Epiglottis normal. Post cricoid normal. Salivary glands: Parotid normal. Submandibular and sublingual normal. Thyroid: normal. Lymphatic/Neck: Lymph nodes normal. Neurologic: Facial nerve normal. ASSESSMENT/PLAN: 1. Tinnitus, left ear - ICD9: 388.30, ICD10: H93.12 (primary diagnosis) - HEARING TEST/AUDIOGRAM 2. Vertigo - ICD9: 780.4, ICD10: R42 Recommend audiogram question hydrops will call with result William Cabrera MD Findings will be communicated to the referring physician via mail or electronic medical record. [facility] 11-15-2022 History of Presen t illness Narrative HPI Rajwinder Wylie is a 72 year old female who presents with recurrent vertigo. Patient states that for the last 10 years or so she has had episodes of recurrent vertigo patient presently is taking meclizine every day twice a day patient also uses Zofran as needed patient does complain of tinnitus which is worse on the left side which seems to get worse with the dizzy spells and her hearing seems to be is diminished as well patient recently had an MRI through neurology. ROS General Weight loss: No Fatigue: No Night sweats:No Cardiac Chest pain:No Fast heart rate:No Swelling in the feet:No Respiratory Short of breath:No Cough:No Wheezing:No Gastrointestinal Nausea:No Vomiting:No Indigestion:No Past medical history, family history, and social history reviewed. PE There were no vitals taken for this visit. General: Patient is awake, alert, NAD. Voice is normal. Skin: normal Eyes: Extraocular motion and Gaze is normal. Ears: Right external auditory canal is normal. TMJ: normal. Right tympanic membranes normal. Left external auditory canal is normal. Left tympanic membrane normal. Nose: Septum is normal. Turbinates are normal. Nasopharynx:normal Oral Cavity/Oropharynx: Lips normal Dentition normal Tongue normal. Tonsils normal. Palate and uvula normal. Pharynx posterior normal Hypopharynx: Base of tongue normal Pyriform sinus normal. Larynx: Vocal cords normal. Epiglottis normal. Post cricoid normal. Salivary glands: Parotid normal. Submandibular and sublingual normal. Thyroid: normal. Lymphatic/Neck: Lymph nodes normal. Neurologic: Facial nerve normal. ASSESSMENT/PLAN: 1. Tinnitus, left ear - ICD9: 388.30, ICD10: H93.12 (primary diagnosis) - HEARING TEST/AUDIOGRAM 2. Vertigo - ICD9: 780.4, ICD10: R42 Recommend audiogram question hydrops will call with result William Cabrera MD Findings will be communicated to the referring physician via mail or electronic medical record. documented in this encounter [facility] 07-26-2022 Miscellaneous Notes Patient has been identified by name and date of : Yes Last office visit in this department: 01/07/2022 No future OV scheduled RX INSTRUCTIONS: Pharmacy initiated this request. No need to notify patient. Patient phones requesting refills as follows: Requested Prescriptions Pending Prescriptions Disp Refills levETIRAcetam ER (KEPPRA XR) 750 mg 24 hr tablet [Pharmacy Med Name: LEVETIRACETAM ER TABS 750MG] 90 tablet 3 Sig: TAKE 1 TABLET DAILY Please review and advise. Becky Diop MA documented in this encounter [facility] 07-12-2022 Miscellaneous Notes Faxed order signed by Dr. Hernandez for Shawn [facility]. Almaz Hull LPN documented in this encounter [facility] 05-31-2022 History of Presen t illness Narrative . [facility] Note Patient name: Rajwinder Wylie PCP: Davion Peoples MD CC: follow-up chest CT HPI: Rajwinder Wylie 71 year old female former 10 pack year smoker with PMH significant for asthma, SANTHOSH on CPAP, RA, Sjogren's, HTN and pulmonary nodularity. 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 Did had allergies as child, required immunotherapy. Asthma had been under good control until COVID infection in August. Sense of taste and smell have not returned and she has persistent fatigue. No current severe SOB. She was having issues with persistent cough and SOB several months ago. No current sputum or wheezing. Chest CT surveillance for pulmonary nodules showed new areas of patchy GGO likley due to previous COVID infection. Treated with a course of doxycycline and respiratory symptoms improved. Repeat chest CT today shows improvement. DATA: Labs: Recent CBC normal without eosinophilia Imaging / Diagnostic Studies: DATE OF EXAM: Mar 10 2022 1:13PM [facility] 0541 - CT CHEST WO IVCON / CLINICAL HISTORY: Lung nodules Comparison: 09/04/2020 RESULT: Limitations: None. Lines, tubes, and devices: None. Lung parenchyma and airways: Linear indeterminate density within the right lung on image 86 is stable. Patchy airspace disease is new with small focus of consolidation on the left on image 114. Similar appearance on the right on image 151. Likely inflammatory. . No developing or suspicious pulmonary nodule. The central airways are patent. Pleural space: No pleural effusion. No pleural thickening. Lower neck, lymph nodes, and mediastinum: The imaged thyroid gland is normal. No developing lymphadenopathy in the supraclavicular, axillary, mediastinal, or hilar regions. Heart, pericardium, and thoracic vessels: The thoracic aorta and main pulmonary artery are normal in caliber. The cardiac chambers are normal in size. Mild coronary artery atherosclerotic calcifications are noted, although the study is not optimized for coronary assessment. No pericardial effusion or thickening. Bones and soft tissues: No destructive bone lesion. Chest wall is unremarkable. Left shoulder prosthesis causes streak artifact. Upper abdomen: No abnormality in the imaged upper abdomen. IMPRESSION: New focal airspace disease within each lung. Likely inflammatory. Follow-up to document resolution recommended. No evidence of developing mass or adenopathy DATE OF EXAM: May 31 2022 2:31PM [facility] 0541 - CT CHEST WO IVCON / PROCEDURE REASON: Lung nodules Comparison: CT chest dated March 10, 2022 RESULT: Limitations: None. Lines, tubes, and devices: None. Lung parenchyma and airways: Stable punctate 2 mm posterior right subpleural upper lobe nodule (5, 48). Stable 2 mm right upper lobe central pulmonary nodule (5, 64). Stable 2 mm right upper lobe subpleural nodule (5, 74). Stable 2 mm additional right upper lobe pulmonary nodule (5, 83). Stable 3 mm anterior right upper lobe nodule (5, 90). Stable punctate 2 mm left upper lobe subpleural nodule (5, 37). Interval improvement in previously noted groundglass consolidative opacity posterior right lower lobe with mild residual curvilinear opacity remaining, likely curvilinear atelectasis/scarring. Significant interval improvement in patchy groundglass consolidative opacity in the posterior left lower lobe subpleural region. Linear atelectasis/scarring in the left lower lobe. Pleural space: No pleural effusion. No pleural thickening. Lower neck, lymph nodes, and mediastinum: The imaged thyroid gland is normal. No lymphadenopathy in the supraclavicular, axillary, mediastinal, or hilar regions. Heart, pericardium, and thoracic vessels: The thoracic aorta and main pulmonary artery are normal in caliber. The cardiac chambers are normal in size. Coronary artery atherosclerotic calcifications are noted, although the study is not optimized for coronary assessment. No pericardial effusion or thickening. Bones and soft tissues: Left shoulder prosthesis present. Degenerative changes in the spine. Upper abdomen: Fatty atrophy of the pancreas. Few scattered colonic diverticuli. No definite additional abnormality in the imaged upper abdomen within the limits of noncontrast technique. IMPRESSION: 1. Interval improvement in focal air space consolidative groundglass opacities within the bilateral lower lobes suggesting improvement in infectious/inflammatory process. 2. Stable scattered subcentimeter pulmonary nodules. No new or enlarging pulmonary nodule. I personally reviewed the images and agree with the above assessment PAST MEDICAL HISTORY Diagnosis Date Asthma First degree heart block 05/16/2013 Outside post 911 follow-up screening, 2012. Hypertension Hypertension 05/16/2013 Lyme disease Meniere disease Obesity 05/16/2013 SANTHOSH (obstructive sleep apnea) 05/16/2013 CPAP 11. Claims to be CPAP compliant. RA (rheumatoid arthritis) ([facility]) 2013 Sinus arrhythmia 05/16/2013 Outside post 05-02 follow-up screening, 2012. Sinusitis Sjogren's disease ([facility]) ALLERGIES Allergen Reactions Bactrim [Sulfametho* Hives Erythromycin GI Upset, Vomiting Nut - Unspecified Anaphylaxis Tree Nuts. Anaphylaxis. Environmentals [Oth* Unknown Dust, tobacco, pollen, ragweed Pineapple Other: See Comments Causes mouth to feel like razors pregabalin (LYRICA) 100 mg capsule^Take 1 capsule by mouth twice daily for 30 days.^Disp: 60 capsule^Rfl: 0 levETIRAcetam ER (KEPPRA XR) 750 mg 24 hr tablet^Take 1 tablet by mouth once daily.^Disp: 90 tablet^Rfl: 0 guaiFENesin (MUCINEX) 600 mg 12 hr tablet^Take 1 tablet by mouth twice daily.^Disp: 180 tablet^Rfl: 3 montelukast (SINGULAIR) 10 mg tablet^Take 1 tablet by mouth daily at bedtime.^Disp: 90 tablet^Rfl: 3 albuterol (PROVENTIL) 2.5 mg /3 mL (0.083 %) nebulizer solution^USE 3 ML VIA NEBULIZER EVERY 6 HOURS NEED OVER 5-15 MINUTES FOR WHEEZING AND SHORTNESS OF BREATH^Disp: 375 mL^Rfl: 3 albuterol HFA (PROAIR HFA) 90 mcg/actuation inhaler^Inhale 2 Puffs as instructed every 4 hours as needed for wheezing/shortness of breath.^Disp: 3 Each^Rfl: 3 JARDIANCE 10 mg tablet^Take 10 mg by mouth once daily.^Disp: ^Rfl: atorvastatin (LIPITOR) 20 mg tablet^Take 20 mg by mouth once daily.^Disp: ^Rfl: leflunomide (ARAVA) 20 mg tablet^Take 20 mg by mouth once daily.^Disp: ^Rfl: ipratropium (ATROVENT) 0.02 % nebulizer solution^Use 2.5 mL via nebulizer one time only for 1 dose. OVER 5-15 MINUTES FOR WHEEZING OR SHORTNESS OF BREATH^Disp: 2.5 mL^Rfl: 0 predniSONE (DELTASONE) 10 mg tablet^2 DAILY FOR 1 WEEK THEN 1 TAB DAILY FOR 1 WEEK. KEEP REMAINDER ON HAND FOR FUTURE FLARES^Disp: 60 tablet^Rfl: 1 venlafaxine ER (EFFEXOR XR) 150 mg 24 hr capsule^300 mg once daily.^Disp: ^Rfl: fluticasone (FLONASE) 50 mcg/actuation nasal spray^Use 1 [place] in each nostril once daily.^Disp: 1 Bottle^Rfl: 5 losartan (COZAAR) 50 mg tablet^Take 1 tablet by mouth once daily.^Disp: ^Rfl: citalopram (CELEXA) 20 mg tablet^Take 40 mg by mouth once daily. ^Disp: ^Rfl: QUEtiapine (SEROQUEL) 100 mg tablet^Take 200 mg by mouth daily at bedtime. ^Disp: ^Rfl: amLODIPine 5 mg ORAL tablet^Take 5 mg by mouth once daily. ^Disp: ^Rfl: hydrochlorothiazide 25 mg ORAL tablet^Take 12.5 mg by mouth once daily. ^Disp: ^Rfl: ALPRAZolam (XANAX) 0.5 mg tablet^Take 0.5 mg by mouth at bedtime as needed.^Disp: ^Rfl: fluticasone-salmeterol (ADVAIR DISKUS) 500-50 mcg/dose dsdv^Inhale 1 Puff as instructed twice daily.^Disp: 3 Each^Rfl: 3 ipratropium (ATROVENT) 0.02 % nebulizer solution^Use 2.5 mL via nebulizer four times daily as needed for wheezing/shortness of breath. OVER 5-15 MINUTES FOR WHEEZING OR SHORTNESS OF BREATH^Disp: 900 mL^Rfl: 3 CPAP^In-line filter - Respironics Device. Lifetime supplies.^Disp: 1 Device^Rfl: 99 CPAP^Please set at 10-20 cmH2O with humidity with download to us in 4 weeks. Also please provide mask fitting (dreamwear under the nose nasal mask).^Disp: 1 Device^Rfl: 99 potassium chloride 20 mEq TbER^Take 1 tablet by mouth once daily.^Disp: ^Rfl: Nebulizer Accessories kit^Provide nebulizer kit.^Disp: 1 Kit^Rfl: 3 Nebulizer and Compressor For Neb^Provide nebulizer.^Disp: 1 Each^Rfl: 0 CPAP^Please eval pts machine as not providing downloads. If you can get download please send us copy. Also please provided mask fitting as pts mask leaking.^Disp: 1 Device^Rfl: 99 Social History Tobacco Use Smoking status: Former Packs/day: 1.00 Years: 10.00 Pack years: 10.00 Types: Cigarettes Quit date: 08/22/1981 Years since quittin.8 Smokeless tobacco: Never Tobacco comments: No smoking in childhood home. Quit cold turkey. No current household ETS smoking, 02/12/19. Vaping Use Vaping Use: Never used Substance Use Topics Alcohol use: Yes Comment: Very occasional, once a month or less. TO 05/21/2014. Drug use: No FAMILY HISTORY Problem Relation Age of Onset Diabetes Mother Onset age 18, age 81. Heart disease Mother 2 valve surgeries. Cancer Father 82 Esophageal cancer Heart Brother Atrial fib. Cancer Paternal Grandmother Lung, mets to brain. PAST SURGICAL HISTORY Procedure Laterality Date ANES ARTHROSCOPIC TOTAL SHOULDER REPLACEMENT Left 04/05/2017 Cory KNEE ARTHROSCOP MENISCUS REPAIR MED/LAT 1998 and 2010 RECONSTRUCTION ROTATOR CUFF AVULSION CHRONIC 1989 TONSILLECTOMY & ADENOIDECTOMY AGE 13/> PMH, Social history, family history and surgical history reviewed and updated in EMR REVIEW OF SYSTEMS: CONSTITUTIONAL: No fevers, chills, nightsweats, unintended weight loss HEENT: Denies nasal congestion/sinus symptoms, allergy problems. No smell or taste EYES: No diplopia or blurry vision. CARDIOVASCULAR: No chest pain, palpitations, orthopnea, PND, edema. PULM: See HPI NEURO: No balance problems, peripheral weakness/paresthesias or numbness of concern. PSY: No concerns regarding depression, anxiety INTEGUMENTARY: No new skin changes or rashes PHYSICAL EXAMINATION: BP 139/63 Pulse 88 Wt 212 lb (96.2kg) SpO2 98% General Appearance: Obese female, NAD. Skin: Skin color, texture, turgor normal, no suspicious rashes or lesions. Head: Normocephalic, no masses, lesions, tenderness or abnormalities. Oropharynx: Dry mucosa, no thrush Neck: No JVD, no masses, no adenopathy Lungs: Not labored, normal to percussion, no wheezes or crackles Heart: Regular rate and rhythm, no murmurs or gallops Extremities: Mild edema, no clubbing. Assessment/Plan: 1. Lung nodules -Continued surveillance. Repeat CT at one year 2. Severe asthma persistent, uncomplicated -Continue Advair and as needed albuterol -Refilled scripts 3. COVID-19 long hauler -Recommend continued physical activity 4. Sjogren's syndrome -Maintain upper airway moisture as able -At risk for development of bronchiectasis Hailey Hernandez MD [facility] documented in this encounter [facility] 05-24-2022 Miscellaneous Notes Information faxed per pt request. Jesica Galo LPN Patient aware the Lyrica was escripted to the pharmacy. Patient requesting to have any recent health information faxed to the Company handling her care since . Jesica Galo LPN documented in this encounter [facility] 04-29-2022 Miscellaneous Notes FYI The patient had blood work done with her PCP's office. The patient is calling and having the lab results faxed to the [place] office. Received a request from [employer] for a 90 day supply rx by fax. Spoke with the patient and she is hoping that she can have a 90 day supply. Physician: Kandice Cornejo CNP Call from pharmacy requesting refill. Please E-Scribe Last OV: 01/07/22 with Kandice Cornejo CNP Future OV: none schedule at this time with Dr. Gudino or Kandice Cornejo CNP. Requested Prescriptions Pending Prescriptions Disp Refills levETIRAcetam ER (KEPPRA XR) 750 mg 24 hr tablet 90 tablet 1 Sig: Take 1 tablet by mouth once daily. Pharmacy Name: [facility] Phone #: [phone] Sheba Ackerman 01/07/22 Assessment/Plan: G62.9 Neuropathy (primary encounter diagnosis) Comment: Stable and controlled with use of Lyrica 100mg BID and Keppra XR k750mg. Notes only occasional breakthrough pains but otherwise feels pain is well controlled. Discussed increase in Lyrica as noted below but will hold off at this time. G25.81 RLS (restless legs syndrome) Comment: Stable with use of Lyrica 100mg BID. RF provided. R51.9 Nonintractable episodic headache, unspecified headache type G45.9 Transient cerebral ischemia, unspecified type R47.01 Aphasia R26.89 Balance problems Comment: Currently taking Keppra XR 750mg and Lyrica 100mg BID. Pt reports that headaches are now occurring daily and are longer in duration. Also noting episode of expressive aphasia since previous COVID infection. Notes that she frequently veers to the left when walking as well which is abnormal and new for her. Given worsening of headache following COVID infection as well as concern for possible associated hypercoagulable state as well as new symptoms of balance and speech concerns, will proceed with MRI of brain for further evaluation for intracranial origin. Discussed possible increase in Lyrica dose at this time for further improvement of headaches, however, will hold off until after imaging complete. G47.33 SANTHOSH (obstructive sleep apnea) Comment: Download reviewed as noted above. No concerns regarding mask fit. AHI normalized. No changes at this time. Continue to remain complaint with PAP and clean and replace equipment regularly. M54.50 Low back pain, unspecified back pain laterality, unspecified chronicity, unspecified whether sciatica present M54.31 Sciatica of right side Comment: Following with [facility]. Continue Lyrica 100mg BID. Office Visit on 01/07/22 MRI BRAIN WO IVCON documented in this encounter [facility] 04-22-2022 History of Presen t illness Narrative [facility], 04/22/2022: Name: Rajwinder Wylie : 1950 The patient is here today by herself. HPI: Rajwinder Wylie is a 71 yo female, former smoker 10-pack years, with PMH significant for asthma, HTN, meniere disease, SANTHOSH on CPAP, RA, and lung nodules most likely secondary to [place] exposure. Most recent CT chest 03/10/2022 with patchy bilateral ground glass opacities, new from previous CT. Patient was diagnosed with Covid infection in August. Was not hospitalized or required supplemental oxygen. CT Chest most likely consistent with Covid infection, however, Dr. Hernandez prescribed Doxycycline to cover atypical infection just to be sure. The patient is here for follow up of asthma. Today, the patient reports she continues with long Covid symptoms. Has not regained smell, occasionally taste is off, fatigue, Since the last Pulmonary Clinic visit 02/26/2021, the patient admits to compliance with prescribed maintenance Rx: Advair 2 inhalations twice daily. There have been no ED visit(s) for the management of asthma exacerbation. No hospitalization(s) for management of asthma exacerbation. Has used no prednisone for the management of exacerbation. Not requiring rescue bronchodilator as much as previously when initially diagnosed with Covid in August. No nocturnal awakenings per month with asthma symptoms. Daily cough. No change in sputum. Frequent wheezing. Exertional dyspnea with minimal exertion. No disruption in taste or voice associated with use of inhaled corticosteroid. No tremor, palpitations, or muscle cramping associated with bronchodilator inhalation. Consistently wearing CPAP with all sleep. Follows with Dr. Gudino DME: [facility]: Updated with patient today. [facility]: Updated with patient today. [facility]: Updated with patient today. ROS: General: Generally feels well, although she states she is feeling more depressed. Has an appointment with psychologist later today. Appetite good. Eyes, Ears, nose, throat: No post nasal drip, rhinorrhea, purulent nasal discharge, epistaxis. No hoarseness. Vision stable. Cardiac: No angina, edema, orthopnea. Resp: See HPI. GI: No heartburn, dysphagia, diarrhea. Musculoskeletal: No pain. Neuro: No headache, focal weakness, tremor. Skin: No rash. Otherwise negative. IMMUNIZATIONS Prevnar 13 - 06/26/2018 Pneumovax 23 - 05/06/2020, 06/20/2018, 05/31/2016, 07/17/2012 Influenza - 05/11/2021 COVID-19 - 12/30/2021, 04/17/2021, 11/20/2020, 10/30/2020 Allergies were verified and updated, and medications were reconciled with the patient at this visit. PHYSICAL EXAMINATION: BP 130/80 Pulse 96 Resp 19 Wt 98 kg (216 lb) SpO2 96% BMI 35.40 kg/m Gen: No acute distress. Cooperative with examination. ENT: Nares clear. Oral hygeine good. Pharynx clear. No sign of oral thrush. Resp: No stridor, accessory respiratory muscle use. No crackles, wheezes. CV: Regular rythm. Heart tones normal. Radial pulses normal. Abd: Non distended. MSK: No kyphoscoliosis. Ext: Warm and well perfused. No cyanosis. Skin: No rash, eczema, urticaria. Neuro: Mental status normal. No tremor. DATA REVIEW: PFT, 04/22/2022 PRE-BRONCH POST-BRONCH Pred LLN ULN Actual %Pred Actual %Chng SPIROMETRY FVC (L) 2.97 2.16 3.83 2.70 90 FEV1 (L) 2.30 1.67 2.90 2.12 92 FEV1/FVC 0.78 0.64 0.89 0.78 100 FEF25 (L/sec) 6.57 FEF50 (L/sec) 3.20 1.60 4.81 3.01 94 FEF75 (L/sec) 0.47 0.17 1.25 0.51 109 AFZ32-82 (L/sec) 1.90 0.87 3.37 1.92 101 PEF L/s (L/sec) 5.82 4.02 7.61 7.44 127 FIVC (L) 2.57 FIF50 (L/sec) 2.71 PIF (L/sec) 3.66 Time (sec) 8.15 [place] (L) 0.11 FET PEF (sec) 0.07 CT chest, 03/10/2022 IMPRESSION: New focal airspace disease within each lung. Likely inflammatory. Follow-up to document resolution recommended. No evidence of developing mass or adenopathy Comparison: 09/04/2020 RESULT: Limitations: None. Lines, tubes, and devices: None. Lung parenchyma and airways: Linear indeterminate density within the right lung on image 86 is stable. Patchy airspace disease is new with small focus of consolidation on the left on image 114. Similar appearance on the right on image 151. Likely inflammatory. . No developing or suspicious pulmonary nodule. The central airways are patent. Pleural space: No pleural effusion. No pleural thickening. Lower neck, lymph nodes, and mediastinum: The imaged thyroid gland is normal. No developing lymphadenopathy in the supraclavicular, axillary, mediastinal, or hilar regions. Heart, pericardium, and thoracic vessels: The thoracic aorta and main pulmonary artery are normal in caliber. The cardiac chambers are normal in size. Mild coronary artery atherosclerotic calcifications are noted, although the study is not optimized for coronary assessment. No pericardial effusion or thickening. Bones and soft tissues: No destructive bone lesion. Chest wall is unremarkable. Left shoulder prosthesis causes streak artifact. Upper abdomen: No abnormality in the imaged upper abdomen. ASSESSMENT/PLAN: 1. Severe persistent asthma without complication - ICD9: 493.90, ICD10: J45.50 (primary diagnosis) Continue Advair 1 inhalation twice daily. Rinse mouth after each use to help prevent oral thrush. Singulair nightly. Albuterol HFA inhaler, 2 inhalations 10-15 minutes prior to activities associated with shortness of breath, and as needed for rescue relief of shortness of breath or wheezing, up to 4 times daily. Mucinex as needed to help thin secretions. - GUAIFENESIN ER 600 MG TABLET, EXTENDED RELEASE 12 HR - FLUTICASONE 500 MCG-SALMETEROL 50 MCG/DOSE BLISTR POWDR FOR INHALATION - MONTELUKAST 10 MG TABLET - ALBUTEROL SULFATE 2.5 MG/3 ML (0.083 %) SOLUTION FOR NEBULIZATION - ALBUTEROL SULFATE HFA 90 MCG/ACTUATION AEROSOL INHALER - IPRATROPIUM BROMIDE 0.02 % SOLUTION FOR INHALATION 2. Lung nodules - ICD9: 793.19, ICD10: R91.8 Most likely secondary to [place] exposure. Most recent CT chest with patchy ground glass opacities that were new and most likely consistent with Covid infection. Will obtain follow up CT chest to check for resolution. - CT CHEST WO IVCON 3. SANTHOSH (obstructive sleep apnea) - ICD9: 327.23, ICD10: G47.33 Continue PAP therapy with all sleep. Follow up with sleep medicine as directed. - ECHO - PERFLUTREN LIPID MICROSPHERES 1.1 MG/ML INJECTION IN NS 10 ML - SODIUM CHLORIDE 0.9 % (FLUSH) INJECTION SYRINGE 4. Dyspnea and respiratory abnormalities - ICD9: 786.09, ICD10: R06.00, R06.89 Patient with dyspnea that is not consistent with her asthma and normal PFT Will obtain echo. Further recommendations to follow. - ECHO - PERFLUTREN LIPID MICROSPHERES 1.1 MG/ML INJECTION IN NS 10 ML - SODIUM CHLORIDE 0.9 % (FLUSH) INJECTION SYRINGE I addressed the questions of the patient, and she expressed understanding and acceptance of my answers. Analia Rivera PA-C documented in this encounter [facility] 04-22-2022 Nurse Note Intake information documented in the prior visit with ADI Murillo today. documented in this encounter [facility] 04-22-2022 History of Presen t illness Narrative PULM FUNCTION SMARTBLOCK: Provider: Analia Rivera PA-C Assisting Tech: ADI Murillo Spirometry: 1 documented in this encounter [facility] 04-16-2022 Miscellaneous Notes RX INSTRUCTIONS: Pharmacy initiated this request. No need to notify patient. Last OV: 01/07/22 with KD Last refill: 04/24/21 With 90 and 1 refills Follow up: No F/U scheduled at this time Esperanza Veliz MA documented in this encounter [facility] 03-15-2022 Miscellaneous Notes PDMP website checked and validated. All prescriptions have been APPROPRIATELY filled. No suspicious activity was identified. March 15, 2022 Kandice Cornejo APRN.[employer] Patient has been identified by name and date of : Yes Pharmacy phones for refill(s): Pending Prescriptions Disp Refills PREGABALIN 100 MG CAPSULE 60 capsule 2 Sig: TAKE 1 CAPSULE BY MOUTH TWICE DAILY FOR 90 DAYS. YUN Class: C-V DINORA: Yes Date of last office visit in Neurology: RAMIRO 01/07/22 with KD Appointment scheduled 04/15/22 with [facility] Notes: Assessment/Plan: G62.9 Neuropathy (primary encounter diagnosis) Comment: Stable and controlled with use of Lyrica 100mg BID and Keppra XR k750mg. Notes only occasional breakthrough pains but otherwise feels pain is well controlled. Discussed increase in Lyrica as noted below but will hold off at this time. G25.81 RLS (restless legs syndrome) Comment: Stable with use of Lyrica 100mg BID. RF provided. R51.9 Nonintractable episodic headache, unspecified headache type G45.9 Transient cerebral ischemia, unspecified type R47.01 Aphasia R26.89 Balance problems Comment: Currently taking Keppra XR 750mg and Lyrica 100mg BID. Pt reports that headaches are now occurring daily and are longer in duration. Also noting episode of expressive aphasia since previous COVID infection. Notes that she frequently veers to the left when walking as well which is abnormal and new for her. Given worsening of headache following COVID infection as well as concern for possible associated hypercoagulable state as well as new symptoms of balance and speech concerns, will proceed with MRI of brain for further evaluation for intracranial origin. Discussed possible increase in Lyrica dose at this time for further improvement of headaches, however, will hold off until after imaging complete. G47.33 SANTHOSH (obstructive sleep apnea) Comment: Download reviewed as noted above. No concerns regarding mask fit. AHI normalized. No changes at this time. Continue to remain complaint with PAP and clean and replace equipment regularly. M54.50 Low back pain, unspecified back pain laterality, unspecified chronicity, unspecified whether sciatica present M54.31 Sciatica of right side Comment: Following with Karen Merlos. Continue Lyrica 100mg BID. Last 2 Encounter Wt Readings: Date: Wt: 01/07/2022 100.8 kg (222 lb 3.2 oz) 11/06/2021 102.5 kg (226 lb) Please advise. Thank you. ZAHIRA Sotomayor documented in this encounter [facility] 03-12-2022 Miscellaneous Notes Spoke with Rajwinder regarding her most recent chest CT which shows patchy bilateral groundglass opacities, new from previous chest CT. She relates a history of COVID infection in August. Was not hospitalized nor required oxygen. Symptoms at that time included cough shortness of breath, fever. She was not hospitalized and had no imaging for comparison to her most recent CT. She continues to have shortness of breath, brain fog, nonproductive cough and wheezing. She is due for her yearly follow-up for her asthma. Her current chest CT is consistent with previous known COVID infection. She just recently received prednisone flare for her rheumatoid arthritis and is reluctant to take any further steroids at this time due to her underlying diabetes. I will send in a prescription for doxycycline to cover atypical infection just to be cautious. documented in this encounter [facility] 03-11-2022 Miscellaneous Notes Reschedule information given to PSS. Celia Jenkins LPN Per [facility], Okay to reschedule annual appt/miya when patient is healed. Celia Jenkins LPN Patient calls and reports she fell and broke her rib. Patient has an appt today with testing and does not feel like she can complete testing d/t pain from fractured rib. Patient asking if it's ok to continue appt today without testing or if she should totally reschedule when rib heals. documented in this encounter [facility] 03-10-2022 History of Presen t illness Narrative Radiology Service Progress Note PATIENT NAME: Rajwinder Wylie DATE OF SERVICE: March 10, 2022 TIME: 2:07 PM PATIENT IDENTITY VERIFICATION COMPLETED USING TWO (2) IDENTIFIERS: Name and Date of confirmed by patient verbally. FALL SCREENING: Has the patient had 2 falls in the last year or 1 fall with injury or currently using an Ambulatory Assistive Device (Walker, Cane, Wheelchair, Crutches, etc.)? No PATIENT GENDER DATA: Female. status: : No status: NO. PATIENT RELEVANT IMPLANT DATA REVIEWED: Yes RADIOLOGY DEPARTMENT: CT; Exam(s) Completed: Chest PERIPHERAL IV DATA: Not applicable SIGNED BY: RT Dyana(R) March 10, 2022 2:07 PM documented in this encounter [facility] 01-22-2022 History of Presen t illness Narrative Radiology Service Progress Note PATIENT NAME: Rajwinder Wylie DATE OF SERVICE: January 22, 2022 TIME: 1:07 PM PATIENT IDENTITY VERIFICATION COMPLETED USING TWO (2) IDENTIFIERS: Name and Date of confirmed by patient verbally. FALL SCREENING: Has the patient had 2 falls in the last year or 1 fall with injury or currently using an Ambulatory Assistive Device (Walker, Cane, Wheelchair, Crutches, etc.)? No PATIENT GENDER DATA: Female. status: : No status: NO. PATIENT RELEVANT IMPLANT DATA REVIEWED: Yes RADIOLOGY DEPARTMENT: MR; Exam(s) Completed: Head: Routine Brain PERIPHERAL IV DATA: Not applicable SIGNED BY: RT Bee(R) January 22, 2022 1:07 PM documented in this encounter [facility] 01-07-2022 History of Presen t illness Narrative Images from the original note were not included. [facility] [place] Follow-up Visit Follow-up note January 07, 2022 HPI: Ms. Wylie presents today for a follow-up visit. Per her previous visit with Dr. Gudino on 11/06/21: ASSESSMENT/PLAN: 1. Neuropathy - ICD9: 355.9, ICD10: G62.9 (primary diagnosis) Glucose stable as per history above. Discomfort stable on Lyrica at present dose. 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 Reviewed with pt SE and ADRs. Continue Keppra at current dose for neuropathic pain. 2. RLS (restless legs syndrome) - ICD9: 333.94, ICD10: G25.81 Also stable on Lyrica 100mg BID. 3. Nonintractable episodic headache, unspecified headache type - ICD9: 784.0, ICD10: R51.9 Stable as well with no need for change in meds at this time - Keppra and Lyrica. 4. SANTHOSH (obstructive sleep apnea) - ICD9: 327.23, ICD10: G47.33 Pap download shows normalization of AHI on current settings. Encouraged continued PAP compliance. Reminded to clean and replace equipment regularly with avoidance of ozone bell cleaner. Advised not to drive or operate heavy [employer] if sleepy. 5. Low back pain, unspecified back pain laterality, unspecified chronicity, unspecified whether sciatica present - ICD9: 724.2, ICD10: M54.50 Continue to follow with [facility]. Increasing Lyrica to 100mg BID as above. Sometimes will wake up overnight to use the bathroom and will not find equipment to put it back on. Sometimes she falls asleep on the couch watching tv and will not go to the bedroom to use the PAP night. Mask fit is ok. No concerns. States Lyrica is working great. Every now and then will have a pain in her third digit. Occasional pain in index finger of left hand. Otherwise symptoms have been great. Occasional back pain but using salon pas. Headaches have been daily. Mostly to L side of her head. No other change in characteristics besides frequency. No changes in severity but headaches lasting longer than before. States these started back up a few months ago. Left ear canal smaller than R; feels this could potentially contribute. Had COVID after [place]; was deployed to [place]. Having difficulty with speech following infection. Notes expressive aphasia. Feels like eyes are bulging out. Still taking Keppra 750mg. Wants records faxed to [facility] physicians. States Dr. Peoples recommended that she discuss having a brain scan as she has been having imbalance. Has been using a cane. Veering to the left frequently. States she had lumbar XR which had no significant findings besides old compression fractures. Unsure if this started around the time of COVID infection. Has had surgery to L elbow. States weakness has worsened after surgery. When she feels off balance she feels like her vision is off. With Menieres attack states she know she has nystagmus. Saw ophthalmology not too long ago. No glaucoma. *PAP download reviewed. Worn for 82/90 days for an average of 5 hours and 26 minutes. Settings mean pressure 10.8cm H2O, average peak pressure 16.3. AHI of 3.7. Avg time in large leak 44 seconds. PAST MEDICAL HISTORY Diagnosis Date Asthma First degree heart block 05/16/2013 Outside post 05-02 follow-up screening, 2012. Hypertension Hypertension 05/16/2013 Lyme disease Meniere disease Obesity 05/16/2013 SANTHOSH (obstructive sleep apnea) 05/16/2013 CPAP 11. Claims to be CPAP compliant. RA (rheumatoid arthritis) ([facility]) 2013 Sinus arrhythmia 05/16/2013 Outside post 05-02 follow-up screening, 2012. Sinusitis PAST SURGICAL HISTORY Procedure Laterality Date ANES ARTHROSCOPIC TOTAL SHOULDER REPLACEMENT Left 04/05/2017 Cory KNEE ARTHROSCOP MENISCUS REPAIR MED/LAT 1998 and 2010 RECONSTRUCTION ROTATOR CUFF AVULSION CHRONIC 1989 TONSILLECTOMY & ADENOIDECTOMY AGE 13/> Current Outpatient Medications on File Prior to Visit Medication Sig pregabalin (LYRICA) 100 mg capsule Take 1 capsule by mouth twice daily for 90 days. levETIRAcetam ER (KEPPRA XR) 750 mg 24 hr tablet Take 1 tablet by mouth every 24 hours. CPAP In-line filter - Respironics Device. Lifetime supplies. CPAP Please set at 10-20 cmH2O with humidity with download to us in 4 weeks. Also please provide mask fitting (dreamwear under the nose nasal mask). potassium chloride 20 mEq TbER Take 1 tablet by mouth once daily. albuterol (PROVENTIL) 2.5 mg /3 mL (0.083 %) nebulizer solution USE 3 ML VIA NEBULIZER EVERY 6 HOURS NEED OVER 5-15 MINUTES FOR WHEEZING AND SHORTNESS OF BREATH atorvastatin (LIPITOR) 20 mg tablet Take 20 mg by mouth once daily. leflunomide (ARAVA) 20 mg tablet Take 20 mg by mouth once daily. Nebulizer Accessories kit Provide nebulizer kit. Nebulizer and Compressor For Neb Provide nebulizer. guaiFENesin (MUCINEX) 600 mg 12 hr tablet Take 1 tablet by mouth twice daily. CPAP Please eval pts machine as not providing downloads. If you can get download please send us copy. Also please provided mask fitting as pts mask leaking. ipratropium (ATROVENT) 0.02 % nebulizer solution Use 2.5 mL via nebulizer one time only for 1 dose. OVER 5-15 MINUTES FOR WHEEZING OR SHORTNESS OF BREATH fluticasone-salmeterol (ADVAIR DISKUS) 500-50 mcg/dose dsdv Inhale 1 Puff as instructed twice daily. predniSONE (DELTASONE) 10 mg tablet 2 DAILY FOR 1 WEEK THEN 1 TAB DAILY FOR 1 WEEK. KEEP REMAINDER ON HAND FOR FUTURE FLARES venlafaxine ER (EFFEXOR XR) 150 mg 24 hr capsule 300 mg once daily. montelukast (SINGULAIR) 10 mg tablet Take 1 tablet by mouth daily at bedtime. albuterol HFA (PROAIR HFA) 90 mcg/actuation inhaler Inhale 2 Puffs as instructed every 4 hours as needed for Wheezing/Shortness of Breath. fluticasone (FLONASE) 50 mcg/actuation nasal spray Use 1 [place] in each nostril once daily. losartan (COZAAR) 50 mg tablet Take 1 tablet by mouth once daily. citalopram (CELEXA) 20 mg tablet Take 40 mg by mouth once daily. QUEtiapine (SEROQUEL) 100 mg tablet Take 200 mg by mouth daily at bedtime. amLODIPine 5 mg ORAL tablet Take 5 mg by mouth once daily. hydrochlorothiazide 25 mg ORAL tablet Take 12.5 mg by mouth once daily. ALPRAZolam (XANAX) 0.5 mg ORAL tablet Take 0.5 mg by mouth at bedtime as needed. No current facility-administered medications on file prior to visit. Social History Tobacco Use Smoking status: Former Smoker Packs/day: 1.00 Years: 10.00 Pack years: 10.00 Types: Cigarettes Quit date: 08/22/1981 Years since quittin.3 Smokeless tobacco: Never Used Tobacco comment: No smoking in childhood home. Quit cold turkey. No current household ETS smoking, 02/12/19. Substance Use Topics Alcohol use: Yes Comment: Very occasional, once a month or less. TO 05/21/2014. Drug use: No ALLERGIES Allergen Reactions Bactrim [Sulfametho* Hives Erythromycin GI Upset, Vomiting Nut - Unspecified Anaphylaxis Tree Nuts. Anaphylaxis. Environmentals [Oth* Unknown Dust, tobacco, pollen, ragweed Pineapple Other: See Comments Causes mouth to feel like razors Review of Systems: Cardiopulmonary: denies chest pain, palpitations, or skipped heart beats Respiratory: + shortness of breath GI/: denies recent nausea, vomiting, diarrhea, constipation, incontinence Musculoskeletal: denies + weakness, muscle atrophy, + joint ache/pain Back/spine: denies + low back or cervical pains (occasional) Neuro: denies tremors, loss of feeling, dizziness, seizure, blackout, paresthesia, facial paresthesia, facial weakness, difficulty in speech, slurring of words, dysarthria, dysphagia, memory loss, + headache, vision changes, + loss of hearing, + tinnitus Physical Exam: 01/07/22 1430 BP: 112/72 Pulse: (!) 129 Resp: 20 Temp: 36.2 C (97.2 F) TempSrc: Temporal SpO2: 96% Weight: 100.8 kg (222 lb 3.2 oz) Patient is alert and in no distress. Dress is appropriate. Mood is appropriate Breathing appears regular and unstressed Neurologic examination: Cognitively intact. No deficits. No formal MMSE performed. CN: Pupils equal and reactive to light, extraocular movements intact with no nystagmus, face is symmetric with no facial droop, hearing intact bilaterally, tongue is midline with no deviation, shoulder shrug is symmetric. Motor exam shows 5/5 strength symmetric through the upper and lower extremities in all groups tested. Sensory intact to light touch in all extremities. Vibratory sensation is intact and symmetric all extremities. Deep tendon reflexes are symmetric at the biceps, brachioradialis, triceps, patella, and achilles bilaterally. Coordination: No dysmetria on finger to nose. No tremors noted. No drift seen. Gait normal in stance and pattern. Labs/studies: Previously Reviewed: EMG 06/05/21: 1. 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 Minimal active motor axon loss change is seen very distally. Foot muscle evaluation was deferred due to redness/swelling from recent toe amputation surgery. 2. Asymmetric absence of the right H reflex in the absence of clear chronic motor axon loss changes in S1-myotome muscles suggests the possibility of an intraspinal canal lesion (ie: radiculopathy) affecting only the S1 sensory root/segment, mild in degree electrically. 3. Isolated mild chronic (no active) motor axon loss changes in gluteus medius are of unclear clinical significance and may be related to focal trauma to the muscle, among other possibilities. Component Latest Ref Rng & Units 04/29/2021 Protein, Total 6.3 - 8.0 g/dL 6.3 Albumin 3.37 - 4.23 gm/dL 3.69 Alpha 1 Globulin 0.18 - 0.31 gm/dL 0.25 Alpha 2 Globulin 0.52 - 0.97 gm/dL 0.79 Beta Globulin 0.84 - 1.36 gm/dL 0.97 Gamma Globulin 0.70 - 1.44 gm/dL 0.59 (L) Interpretation (Prot Electro) SEE COMMENT M-Protein Location N/A M-Protein Concentration 0.00 gm/dL 0.00 SPE Staff Review Reviewed by Erin Bell MD ([id number]) Protein, Urine Random 0 - 20 mg/dL 5 Albumin, Urine (Prot Electro) % 35.7 Alpha 1 Globulin, Urine % 4.3 Alpha 2 Globulin, Urine % 26.1 Beta Globulin, Urine % 22.4 Gamma Globulin, Urine % 11.5 Interpretation (Urine Electro) SEE COMMENT Staff Review (Urine Electro) Reviewed by Erin Bell MD ([id number]) Hemoglobin A1C 4.3 - 5.6 % 6.8 (H) Estimated Average Glucose mg/dL 148 Vitamin B12 232 - 1,245 pg/mL 628 MMA 79 - 376 nmol/L 99 Ferritin 14.7 - 205.1 ng/mL 115.0 Copper 85 - 155 ug/dL 133 TSH 0.270 - 4.200 uU/mL 1.630 Free T4 0.9 - 1.7 ng/dL 0.8 (L) Assessment/Plan: G62.9 Neuropathy (primary encounter diagnosis) Comment: Stable and controlled with use of Lyrica 100mg BID and Keppra XR k750mg. Notes only occasional breakthrough pains but otherwise feels pain is well controlled. Discussed increase in Lyrica as noted below but will hold off at this time. G25.81 RLS (restless legs syndrome) Comment: Stable with use of Lyrica 100mg BID. RF provided. R51.9 Nonintractable episodic headache, unspecified headache type G45.9 Transient cerebral ischemia, unspecified type R47.01 Aphasia R26.89 Balance problems Comment: Currently taking Keppra XR 750mg and Lyrica 100mg BID. Pt reports that headaches are now occurring daily and are longer in duration. Also noting episode of expressive aphasia since previous COVID infection. Notes that she frequently veers to the left when walking as well which is abnormal and new for her. Given worsening of headache following COVID infection as well as concern for possible associated hypercoagulable state as well as new symptoms of balance and speech concerns, will proceed with MRI of brain for further evaluation for intracranial origin. Discussed possible increase in Lyrica dose at this time for further improvement of headaches, however, will hold off until after imaging complete. G47.33 SANTHOSH (obstructive sleep apnea) Comment: Download reviewed as noted above. No concerns regarding mask fit. AHI normalized. No changes at this time. Continue to remain complaint with PAP and clean and replace equipment regularly. M54.50 Low back pain, unspecified back pain laterality, unspecified chronicity, unspecified whether sciatica present M54.31 Sciatica of right side Comment: Following with [facility]. Continue Lyrica 100mg BID. Office Visit on 01/07/22 MRI BRAIN VENKAT Cornejo APRN.BLOWING WEASAND I spent a total of 40 minutes on the date of the service which included preparing to see the patient, [id number] patient care, completing clinical documentation, obtaining and/or reviewing separately obtained history, performing a medically appropriate examination, counseling and educating the patient/family/caregiver and ordering medications, tests, or procedures. PDMP website checked and validated. All prescriptions have been APPROPRIATELY filled. No suspicious activity was identified. January 07, 2022 Kandice Cornejo APRN.JOANN documented in this encounter [facility] 12-30-2021 Miscellaneous Notes Annual visit to evaluate symptoms spirometry and surveillance CT Chest recommended at 02/2021 Pulmonary visit. Orders placed for spirometry and chest CT. Appointment with Analia Rivera PA-C or Hailey Hernandez MD in [place]. Will need orders placed. Celia Jenkins LPN Patient calling to schedule pulmonary CT scan and breahting test. States she keeps getting reminders from [facility] to do the testing. Almaz Hull LPN documented in this encounter [facility] 11-06-2021 History of Presen t illness Narrative ESTABLISHED PATIENT VISIT CHIEF COMPLAINT: Follow Up HISTORY OF PRESENT ILLNESS: Rajwinder Wylie is a 71 year old female, BMI 37.04 kg/m2 with a PMH significant for and per last neuro appt on 06/09/21: M54.50 Low back pain, unspecified back pain laterality, unspecified chronicity, unspecified whether sciatica present (primary encounter diagnosis) M54.31 Sciatica of right side Comment: Patient noting intermittent low back pain as well as pain in R leg which feels like she is sitting on a lego. EMG/NCV completed since previous visit noting possible S1 radiculopathy. Per patient, recent XR completed of both cervical and lumbar spine through [facility]. Will attempt to obtain records for review. In interim will have patient begin physical therapy for low back and leg pain. G62.9 Neuropathy Comment: Previous report of increased pain in pattern suggestive of peripheral polyneuropathy. Blood work completed since previous visit showing elevated A1C at 6.8 as well as mildly low free T4. Patient to follow up with PCP regarding findings. EMG/NCV showing large fiber sensorimotor polyneuropathy, mild to moderate in degree. Of note, patient exposed to multiple chemicals [place] ground zero as well as with history of DM. Currently taking Keppra 750mg ER daily which is no longer controlling discomfort. Was previously started on Lyrica 75mg BID, however, she has not yet been able to obtain medication as of this appointment. G25.81 RLS (restless legs syndrome) Comment: No new concerns. Continue Requip as previously prescribed. R51.9 Nonintractable episodic headache, unspecified headache type Comment: No new concerns. No changes to medications. Continue as previously prescribed. G47.33 SANTHOSH (obstructive sleep apnea) Comment: Continue PAP compliance as discussed at previous appointment. No new concerns. PAP download reviewed. Used 70 of last 90 days. AHI is 2.9. Avg unintended leak id 4.8LPM. 100% mask fit. 90% pressure is 14.5 cmH2O with range of 10-20 cmH2O. Patient states she need results of EMG/NCV still. States home glucose running under 128. Note last A1c was 6.8 in 04/29/21. States she is need of a new clammer. Pt has also had 2 toes amputated since I last saw her (2nd toe on each foot). Numbness and tingling now resolved since on Lyrica 75mg BID - no side effects. Also on Keppra. Lumbar pain stable. Note compression fx going back to 5th grade. Pain no better. Still following with [facility]. Also having phantom pain where R toe was. Regarding PAP, when did not use it states she was going through a relapse of PTSD. RLS - controlled and pt now of Requip. REVIEW OF SYSTEMS GENERAL:No weight loss, malaise or fevers. HEENT:Negative for frequent or significant headaches, No changes in hearing or vision, no nose bleeds or other nasal problems NECK:Negative for lumps, goiter, pain and significant neck swelling RESPIRATORY: Negative for cough, wheezing or shortness of breath. CARDIOVASCULAR: Negative for chest pain, leg swelling or palpitations. GASTROINTESTINAL: Negative for abdominal discomfort, blood in stools or black stools or change in bowel habits GENITOURINARY: No history of dysuria, frequency or incontinence MUSCULOSKELETAL: Negative for joint pain or swelling, back pain or muscle pain. NEUROLOGIC:Negative for focal numbness or weakness, headaches and dizziness or syncope, vision changes, speech/languag changes - EXCEPT that as per HPI above. SKIN:Negative for lesions, rash, and itching. PSYCHIATRIC: Negative for sleep disturbance, mood disorder and recent psychosocial stressors. HEMATOLOGIC/LYMPHATIC/IMMUNOLOGI C:Negative for prolonged bleeding, bruising easily or swollen nodes. ENDOCRINE: Negative for cold or heat intolerance, polyuria, polydipsia and goiter. The remainder of the ROS was reviewed and is negative. LAB/IMAGING: Those performed since patient's last visit have been reviewed. WBC (k/uL) Date Value 01/09/2018 7.64 RBC (m/uL) Date Value 01/09/2018 4.97 Hemoglobin (g/dL) Date Value 01/09/2018 12.5 Hematocrit (%) Date Value 01/09/2018 40.6 MCV (fL) Date Value 01/09/2018 81.7 MCH (pG) Date Value 01/09/2018 25.2 (L) MCHC (g/dL) Date Value 01/09/2018 30.8 RDW-CV (%) Date Value 01/09/2018 15.1 (H) Platelet Count (k/uL) Date Value 01/09/2018 241 MPV (fL) Date Value 01/09/2018 9.8 Glucose (mg/dL) Date Value 01/09/2018 102 (H) BUN (mg/dL) Date Value 01/09/2018 18 Creatinine (mg/dL) Date Value 01/09/2018 0.83 Sodium (mmol/L) Date Value 01/09/2018 139 Potassium (mmol/L) Date Value 01/09/2018 3.7 Chloride (mmol/L) Date Value 01/09/2018 100 CO2 (mmol/L) Date Value 01/09/2018 28 Protein, Total (g/dL) Date Value 04/29/2021 6.3 Calcium (mg/dL) Date Value 01/09/2018 9.4 URINALYSIS No results found for: PH, SPGR, UGLUC, UBILI, UKET, UHB, UPROT, UROBIL, UWBC, SSA MEDICATIONS: pregabalin (LYRICA) 75 mg capsule Take 1 capsule by mouth twice daily for 90 days. levETIRAcetam ER (KEPPRA XR) 750 mg 24 hr tablet Take 1 tablet by mouth every 24 hours. CPAP In-line filter - Respironics Device. Lifetime supplies. CPAP Please set at 10-20 cmH2O with humidity with download to us in 4 weeks. Also please provide mask fitting (dreamwear under the nose nasal mask). potassium chloride 20 mEq TbER Take 1 tablet by mouth once daily. albuterol (PROVENTIL) 2.5 mg /3 mL (0.083 %) nebulizer solution USE 3 ML VIA NEBULIZER EVERY 6 HOURS NEED OVER 5-15 MINUTES FOR WHEEZING AND SHORTNESS OF BREATH atorvastatin (LIPITOR) 20 mg tablet Take 20 mg by mouth once daily. leflunomide (ARAVA) 20 mg tablet Take 20 mg by mouth once daily. Nebulizer Accessories kit Provide nebulizer kit. Nebulizer and Compressor For Neb Provide nebulizer. guaiFENesin (MUCINEX) 600 mg 12 hr tablet Take 1 tablet by mouth twice daily. CPAP Please eval pts machine as not providing downloads. If you can get download please send us copy. Also please provided mask fitting as pts mask leaking. ipratropium (ATROVENT) 0.02 % nebulizer solution Use 2.5 mL via nebulizer one time only for 1 dose. OVER 5-15 MINUTES FOR WHEEZING OR SHORTNESS OF BREATH fluticasone-salmeterol (ADVAIR DISKUS) 500-50 mcg/dose dsdv Inhale 1 Puff as instructed twice daily. predniSONE (DELTASONE) 10 mg tablet 2 DAILY FOR 1 WEEK THEN 1 TAB DAILY FOR 1 WEEK. KEEP REMAINDER ON HAND FOR FUTURE FLARES venlafaxine ER (EFFEXOR XR) 150 mg 24 hr capsule 300 mg once daily. montelukast (SINGULAIR) 10 mg tablet Take 1 tablet by mouth daily at bedtime. albuterol HFA (PROAIR HFA) 90 mcg/actuation inhaler Inhale 2 Puffs as instructed every 4 hours as needed for Wheezing/Shortness of Breath. fluticasone (FLONASE) 50 mcg/actuation nasal spray Use 1 [place] in each nostril once daily. losartan (COZAAR) 50 mg tablet Take 1 tablet by mouth once daily. citalopram (CELEXA) 20 mg tablet Take 40 mg by mouth once daily. QUEtiapine (SEROQUEL) 100 mg tablet Take 200 mg by mouth daily at bedtime. amLODIPine 5 mg ORAL tablet Take 5 mg by mouth once daily. hydrochlorothiazide 25 mg ORAL tablet Take 12.5 mg by mouth once daily. ALPRAZolam (XANAX) 0.5 mg ORAL tablet Take 0.5 mg by mouth at bedtime as needed. rOPINIRole (REQUIP) 0.25 mg tablet Take 1 tablet before bedtime. If tingling persists, try increasing to 2 tablets. TRADJENTA 5 mg tab Take 5 mg by mouth once daily. albuterol (PROVENTIL) 2.5 mg /3 mL (0.083 %) nebulizer solution Use 3 mL via nebulizer one time only for 1 dose. OVER 5-15 MINUTES. FOR WHEEZING AND SHORTNESS OF BREATH. Azelastine (ASTEPRO) 0.15 % (205.5 mcg) spry Use 1 [place] in each nostril twice daily. HISTORIES PAST MEDICAL HISTORY Diagnosis Date Asthma First degree heart block 05/16/2013 Outside post 05-02 follow-up screening, 2012. Hypertension Hypertension 05/16/2013 Lyme disease Meniere disease Obesity 05/16/2013 SANTHOSH (obstructive sleep apnea) 05/16/2013 CPAP 11. Claims to be CPAP compliant. RA (rheumatoid arthritis) ([facility]) 2013 Sinus arrhythmia 05/16/2013 Outside post 05-02 follow-up screening, 2012. Sinusitis FAMILY HISTORY Problem Relation Age of Onset Diabetes Mother Onset age 18, age 81. Heart disease Mother 2 valve surgeries. Cancer Father 82 Esophageal cancer Heart Brother Atrial fib. Cancer Paternal Grandmother Lung, mets to brain. SOCIAL HISTORY Social History Tobacco Use Smoking status: Former Smoker Packs/day: 1.00 Years: 10.00 Pack years: 10.00 Types: Cigarettes Quit date: 08/22/1981 Years since quittin.2 Smokeless tobacco: Never Used Tobacco comment: No smoking in childhood home. Quit cold turkey. No current household ETS smoking, 02/12/19. Substance Use Topics Alcohol use: Yes Comment: Very occasional, once a month or less. TO 05/21/2014. Drug use: No PHYSICAL EXAMINATION BP 128/62 Pulse 102 Temp 36.2 C (97.2 F) Resp 18 Wt 102.5 kg (226 lb) SpO2 97% BMI 37.04 kg/m GENERAL EXAM: General appearance: NAD, pleasant. HEENT: NC/AT, nasal congestion absent, no oral lesions, membranes moist. NECK: No masses, supple. Lungs: CTA bilaterally. No wheezes present. CV: RRR nl S1, S2. No carotid bruits. Extr: No cyanosis, clubbing or edema. Skin: Cool to touch. NEUROLOGICAL EXAM: General: Awake, alert, oriented x3 (person,place,time), speech fluent, no dysarthria; comprehension, naming, repetition intact. Fund of knowledge grossly normal. CN: PERRL, EOMI and without nystagmus, VFF to confrontation, facial sensation and strength are normal and symmetric, hearing is intact, palate and tongue movements are intact and symmetric. SCM and trapezius strength normal. Motor: Normal tone, bulk and strength (5/5) bilaterally (throughout extremities x4). Coordination: FNF, CHUNG, HTS intact. No tremors. Sensation: Light touch intact throughout. No evidence of neglect. Gait: Stable with normal stride and arm swing. Assessment and Plan: ASSESSMENT/PLAN: 1. Neuropathy - ICD9: 355.9, ICD10: G62.9 (primary diagnosis) Glucose stable as per history above. Discomfort stable on Lyrica at present dose. 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 Reviewed with pt SE and ADRs. Continue Keppra at current dose for neuropathic pain. 2. RLS (restless legs syndrome) - ICD9: 333.94, ICD10: G25.81 Also stable on Lyrica 100mg BID. 3. Nonintractable episodic headache, unspecified headache type - ICD9: 784.0, ICD10: R51.9 Stable as well with no need for change in meds at this time - Keppra and Lyrica. 4. SANTHOSH (obstructive sleep apnea) - ICD9: 327.23, ICD10: G47.33 Pap download shows normalization of AHI on current settings. Encouraged continued PAP compliance. Reminded to clean and replace equipment regularly with avoidance of ozone bell cleaner. 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 5. Low back pain, unspecified back pain laterality, unspecified chronicity, unspecified whether sciatica present - ICD9: 724.2, ICD10: M54.50 Continue to follow with [facility]. Increasing Lyrica to 100mg BID as above. Jairo Gudino MD I spent 40+ minutes in the visit, with more than 50% of the total [id number] time of the visit in counseling / coordination of care. PDMP website checked and validated. All prescriptions have been APPROPRIATELY filled. No suspicious activity was identified. 11/06/2021 by Jairo Gudino MD documented in this encounter [facility] Diagnosis Severe persistent asthma without complication- Primary Lung nodules Other nonspecific abnormal finding of lung field [facility] Diagnosis Neuropathy- Primary Mononeuritis of unspecified site RLS (restless legs syndrome) Restless legs syndrome (RLS) Nonintractable episodic headache, unspecified headache type SANTHOSH (obstructive sleep apnea) Obstructive sleep apnea (adult) (pediatric) Low back pain, unspecified back pain laterality, unspecified chronicity, unspecified whether sciatica present Transient cerebral ischemia, unspecified type Aphasia Balance problems Other symptoms involving nervous and musculoskeletal systems Sciatica of right side Sciatica [facility] Diagnosis Transient cerebral ischemia, unspecified type Aphasia Balance problems Other symptoms involving nervous and musculoskeletal systems [facility] Diagnosis Lung nodules Other nonspecific abnormal finding of lung field [facility] Diagnosis Neuropathy Mononeuritis of unspecified site RLS (restless legs syndrome) Restless legs syndrome (RLS) Nonintractable episodic headache, unspecified headache type SANTHOSH (obstructive sleep apnea) Obstructive sleep apnea (adult) (pediatric) Sciatica of right side Sciatica [facility] Diagnosis RLS (restless legs syndrome) Restless legs syndrome (RLS) Neuropathy Mononeuritis of unspecified site Nonintractable episodic headache, unspecified headache type [facility] [place] [facility] Diagnosis Severe persistent asthma without complication- Primary [facility] [place] [facility]* Diagnosis Severe persistent asthma without complication- Primary Lung nodules Other nonspecific abnormal finding of lung field SANTHOSH (obstructive sleep apnea) Obstructive sleep apnea (adult) (pediatric) Dyspnea and respiratory abnormalities Other dyspnea and respiratory abnormality [facility] [place] [facility]* Diagnosis RLS (restless legs syndrome) Restless legs syndrome (RLS) Neuropathy Mononeuritis of unspecified site Nonintractable episodic headache, unspecified headache type [facility] [place] [facility]* Diagnosis Lung nodules- Primary Other nonspecific abnormal finding of lung field Severe persistent asthma without complication COVID-19 long hauler Sjogren's syndrome, with unspecified organ involvement (HCC) [facility] [place] [facility]* Diagnosis RLS (restless legs syndrome) Restless legs syndrome (RLS) Neuropathy Mononeuritis of unspecified site Nonintractable episodic headache, unspecified headache type [facility] [place] [facility]* Diagnosis Tinnitus, left ear- Primary Vertigo Dizziness and giddiness documented in this encounter [facility] note* Diagnosis Neuropathy- Primary Mononeuritis of unspecified site RLS (restless legs syndrome) Restless legs syndrome (RLS) Nonintractable episodic headache, unspecified headache type Transient cerebral ischemia, unspecified type Aphasia Balance problems Other symptoms involving nervous and musculoskeletal systems SANTHOSH (obstructive sleep apnea) Obstructive sleep apnea (adult) (pediatric) Low back pain, unspecified back pain laterality, unspecified chronicity, unspecified whether sciatica present Sciatica of right side Sciatica Tinnitus of both ears Unspecified tinnitus Vertigo Dizziness and giddiness [facility] [place] [facility]* Diagnosis Dyspnea and respiratory abnormalities- Primary Other dyspnea and respiratory abnormality Acute bronchitis, unspecified organism Sinobronchitis Unspecified sinusitis (chronic) Severe persistent asthma without complication COVID-19 long hauler Sjogren's syndrome, with unspecified organ involvement (HCC) SANTHOSH (obstructive sleep apnea) Obstructive sleep apnea (adult) (pediatric) Lung nodule Solitary pulmonary nodule [facility] Diagnosis Acute bronchitis, unspecified organism Sinobronchitis Unspecified sinusitis (chronic) [facility] Diagnosis Severe persistent asthma without complication [facility] [place] [facility] Diagnosis Neuropathy Mononeuritis of unspecified site RLS (restless legs syndrome) Restless legs syndrome (RLS) Nonintractable episodic headache, unspecified headache type SANTHOSH (obstructive sleep apnea) Obstructive sleep apnea (adult) (pediatric) Sciatica of right side Sciatica [facility] [place] [facility] Diagnosis Dyspnea and respiratory abnormalities Other dyspnea and respiratory abnormality [facility] Diagnosis Acute left-sided low back pain with left-sided sciatica [facility] Diagnosis Lung nodules Other nonspecific abnormal finding of lung field [facility] Diagnosis Severe persistent asthma without complication [facility] [place] [facility] Diagnosis Severe persistent asthma without complication [facility] Diagnosis Severe persistent asthma without complication- Primary Sjogren's syndrome, with unspecified organ involvement (HCC) Lung nodules Other nonspecific abnormal finding of lung field [facility] Diagnosis Neuropathy Mononeuritis of unspecified site RLS (restless legs syndrome) Restless legs syndrome (RLS) Nonintractable episodic headache, unspecified headache type [facility] Outpatient Procedure (Routine) - Waiting for Response Specialty Diagnoses / Procedures Referred By Contac t Referred To Contact [facility] Diagnoses SANTHOSH (obstructive sleep apnea) Dyspnea and respiratory abnormalities [facility] W/WOM-MODE COMPL SPEC&COLR D Analia Rivera PA-C [address] [address] [facility] [address] [place] [address] Referral ID Status Reason Start Date Expiration Date Visits Requested Visits Authorized [id number] Waiting for Response Auto-Generate d Referral Financial Clearance Required - [employer] 04/22/2022 04/22/2023 1 1 * MRI/CT (Routine) - Authorized Specialty Diagnoses / Procedures Referred By Edy t Referred To Contact PULMONARY MEDICINE Diagnoses Lung nodules Procedures CT CHEST WO IVCON DIAGNOSTIC COMPUTED TOMOGRAPHY THORAX W/O Analia Reyna PA-C [address] [address] [facility] [address] [place] [address] Referral ID Status Reason Start Date Expiration Date Visits Requested Visits Authorized [id number] Authorized Auto-Generate d Referral Financial Clearance Required - [employer] 2 08/21/2022 1 1 [facility] Summary Purpose Family History No Family History Records FoundNo Family History Records FoundNo Family History Records FoundNo Family History Records FoundNo Family History Records Found Advance Directives No Advanced Directives Records FoundNo Advanced Directives Records FoundNo Advanced Directives Records FoundNo Advanced Directives Records FoundNo Advanced Directives Records Found Reason for Referral Specialty Diagnoses / Procedures Referred By Edy pinedo Referred To Contact CT IMAGING Diagnoses Lung nodules Procedures CT CHEST WO IVCON DIAGNOSTIC COMPUTED TOMOGRAPHY THORAX W/O Rodrigo Murphy MD [address] [place] [address] Ct Imaging Referral ID Status Reason Start Date Expiration Date Visits Requested Visits Authorized [id number] Pending Review Auto-Generat ed Referral 02/25/2022 01/29/2023 1 1 Specialty Diagnoses / Procedures Referred By Edy t Referred To Contact [facility] Diagnoses Severe persistent asthma without complication Procedures SPIROMETRY BASELINE ONLY SPMTRY W/VC EXPIRATORY HIPOLITO W/WO MXML VOL VNTJ Rodrigo Lamb MD [address] [place] [address] Respiratory [facility] [place] [address] Referral ID Status Reason Start Date Expiration Date Visits Requested Visits Authorized [id number] Pending Review Auto-Generat ed Referral 02/25/2022 01/29/2023 1 1 Specialty Diagnoses / Procedures Referred By Contac t Referred To Contact MR IMAGING Diagnoses Transient cerebral ischemia, unspecified type Aphasia Balance problems Procedures MRI BRAIN WO IVCON MRI BRAIN BRAIN STEM W/O CONTRAST MATERIAL Kandice Cornejo, RAEGAN.BLOWING WEASAND [address] [place] [address] Mr Imaging Referral ID Status Reason Start Date Expiration Date Visits Requested Visits Authorized [id number] Authorized Auto-Generat ed Referral 01/07/2022 02/06/2023 1 1 Referral ID Status Reason Start Date Expiration Date V isits Requested Visits Authorized [id number] Closed Auto-Generate d Referral 01/07/2022 02/06/2023 1 1 Referral ID Status Reason Start Date Expiration Date V isits Requested Visits Authorized [id number] Closed Auto-Generate d Referral 02/25/2022 01/29/2023 1 1 Specialty Diagnoses / Procedures Referred By Contac t Referred To Contact Diagnoses Tinnitus, left ear Procedures HEARING TEST/AUDIOGRAM COMPRE AUDIOMETRY THRESHOLD EVAL William Concepcion MD [address] [address] [facility] [address] [place] [address] Referral ID Status Reason Start Date Expiration Date Visits Requested Visits Authorized [id number] Pending Review Auto-Generat ed Referral 11/15/2022 02/13/2023 1 1 Specialty Diagnoses / Procedures Referred By Contac t Referred To Contact Diagnoses Neuropathy RLS (restless legs syndrome) Nonintractable episodic headache, unspecified headache type SANTHOSH (obstructive sleep apnea) Sciatica of right side Kandice Cornejo, RAEGAN.BLOWING WEASAND [address] [place] [address] Referral ID Status Reason Start Date Expiration Date V isits Requested Visits Authorized [id number] Pending Review 1 1 Specialty Diagnoses / Procedures Referred By Contac t Referred To Contact MR IMAGING Diagnoses Acute left-sided low back pain with left-sided sciatica Procedures MRI LUMBAR SPINE WO IVCON MRI SPINAL CANAL LUMBAR W/O CONTRAST MATERIAL Jairo Gudino Jr., MD [address] [place] [address] [place] [address] [place] [address] Referral ID Status Reason Start Date Expiration Date V isits Requested Visits Authorized [id number] Closed Auto-Generate d Referral 04/29/2023 05/28/2024 1 1 Additional Source Comments INFORMATION SOURCE (unrecogn ized section and content) DATE CREATED AUTHOR AUTHOR'S ORGANIZ ATION 02/14/2018 [facility] DATE CREATED AUTHOR AUTHOR'S ORGANIZ ATION 08/13/2020 [facility] DATE CREATED AUTHOR AUTHOR'S ORGANIZ ATION 05/08/2021 [facility] DATE CREATED AUTHOR AUTHOR'S ORGANIZ ATION 09/27/[address] [facility] Source Comments (unrecognize d section and content) In the event this informatio n is protected by the Federal Confidentiality of Alcohol and Drug Abuse Patient Records regulations: The Federal rules restrict any use of the information to criminally investigate or prosecute any alcohol or drug abuse patient.[facility] the event this information is protected by the Federal Confidentiality of Alcohol and Drug Abuse Patient Records regulations: The Federal rules restrict any use of the information to criminally investigate or prosecute any alcohol or drug abuse patient.[facility] Hospital[facility] the event this information is protected by the Federal Confidentiality of Alcohol and Drug Abuse Patient Records regulations: The Federal rules restrict any use of the information to criminally investigate or prosecute any alcohol or drug abuse patient.[facility] the event this information is protected by the Federal Confidentiality of Alcohol and Drug Abuse Patient Records regulations: The Federal rules restrict any use of the information to criminally investigate or prosecute any alcohol or drug abuse patient.[facility] the event this information is protected by the Federal Confidentiality of Alcohol and Drug Abuse Patient Records regulations: The Federal rules restrict any use of the information to criminally investigate or prosecute any alcohol or drug abuse patient.[facility] HospitalIn the event this information is protected by the Federal Confidentiality of Alcohol and Drug Abuse Patient Records regulations: The Federal rules restrict any use of the information to criminally investigate or prosecute any alcohol or drug abuse patient.[facility] the event this information is protected by the Federal Confidentiality of Alcohol and Drug Abuse Patient Records regulations: The Federal rules restrict any use of the information to criminally investigate or prosecute any alcohol or drug abuse patient.[facility] Hospital[facility] the event this information is protected by the Federal Confidentiality of Alcohol and Drug Abuse Patient Records regulations: The Federal rules restrict any use of the information to criminally investigate or prosecute any alcohol or drug abuse patient.[facility] Hospital[facility] the event this information is protected by the Federal Confidentiality of Alcohol and Drug Abuse Patient Records regulations: The Federal rules restrict any use of the information to criminally investigate or prosecute any alcohol or drug abuse patient.[facility] Hospital[facility] the event this information is protected by the Federal Confidentiality of Alcohol and Drug Abuse Patient Records regulations: The Federal rules restrict any use of the information to criminally investigate or prosecute any alcohol or drug abuse patient.[facility] HospitalIn the event this information is protected by the Federal Confidentiality of Alcohol and Drug Abuse Patient Records regulations: The Federal rules restrict any use of the information to criminally investigate or prosecute any alcohol or drug abuse patient.[facility] Hospital[facility] the event this information is protected by the Federal Confidentiality of Alcohol and Drug Abuse Patient Records regulations: The Federal rules restrict any use of the information to criminally investigate or prosecute any alcohol or drug abuse patient.[facility] HospitalIn the event this information is protected by the Federal Confidentiality of Alcohol and Drug Abuse Patient Records regulations: The Federal rules restrict any use of the information to criminally investigate or prosecute any alcohol or drug abuse patient.[facility] HospitalIn the event this information is protected by the Federal Confidentiality of Alcohol and Drug Abuse Patient Records regulations: The Federal rules restrict any use of the information to criminally investigate or prosecute any alcohol or drug abuse patient.[facility] HospitalIn the event this information is protected by the Federal Confidentiality of Alcohol and Drug Abuse Patient Records regulations: The Federal rules restrict any use of the information to criminally investigate or prosecute any alcohol or drug abuse patient.[facility] Hospital[facility] the event this information is protected by the Federal Confidentiality of Alcohol and Drug Abuse Patient Records regulations: The Federal rules restrict any use of the information to criminally investigate or prosecute any alcohol or drug abuse patient.[facility] HospitalIn the event this information is protected by the Federal Confidentiality of Alcohol and Drug Abuse Patient Records regulations: The Federal rules restrict any use of the information to criminally investigate or prosecute any alcohol or drug abuse patient.[facility] HospitalIn the event this information is protected by the Federal Confidentiality of Alcohol and Drug Abuse Patient Records regulations: The Federal rules restrict any use of the information to criminally investigate or prosecute any alcohol or drug abuse patient.[facility] HospitalIn the event this information is protected by the Federal Confidentiality of Alcohol and Drug Abuse Patient Records regulations: The Federal rules restrict any use of the information to criminally investigate or prosecute any alcohol or drug abuse patient.[facility] HospitalIn the event this information is protected by the Federal Confidentiality of Alcohol and Drug Abuse Patient Records regulations: The Federal rules restrict any use of the information to criminally investigate or prosecute any alcohol or drug abuse patient.[facility] HospitalIn the event this information is protected by the Federal Confidentiality of Alcohol and Drug Abuse Patient Records regulations: The Federal rules restrict any use of the information to criminally investigate or prosecute any alcohol or drug abuse patient.[facility] HospitalIn the event this information is protected by the Federal Confidentiality of Alcohol and Drug Abuse Patient Records regulations: The Federal rules restrict any use of the information to criminally investigate or prosecute any alcohol or drug abuse patient.[facility] HospitalIn the event this information is protected by the Federal Confidentiality of Alcohol and Drug Abuse Patient Records regulations: The Federal rules restrict any use of the information to criminally investigate or prosecute any alcohol or drug abuse patient.[facility] HospitalIn the event this information is protected by the Federal Confidentiality of Alcohol and Drug Abuse Patient Records regulations: The Federal rules restrict any use of the information to criminally investigate or prosecute any alcohol or drug abuse patient.[facility] HospitalIn the event this information is protected by the Federal Confidentiality of Alcohol and Drug Abuse Patient Records regulations: The Federal rules restrict any use of the information to criminally investigate or prosecute any alcohol or drug abuse patient.[facility] HospitalIn the event this information is protected by the Federal Confidentiality of Alcohol and Drug Abuse Patient Records regulations: The Federal rules restrict any use of the information to criminally investigate or prosecute any alcohol or drug abuse patient.[facility] HospitalIn the event this information is protected by the Federal Confidentiality of Alcohol and Drug Abuse Patient Records regulations: The Federal rules restrict any use of the information to criminally investigate or prosecute any alcohol or drug abuse patient.[facility] HospitalIn the event this information is protected by the Federal Confidentiality of Alcohol and Drug Abuse Patient Records regulations: The Federal rules restrict any use of the information to criminally investigate or prosecute any alcohol or drug abuse patient.[facility] HospitalIn the event this information is protected by the Federal Confidentiality of Alcohol and Drug Abuse Patient Records regulations: The Federal rules restrict any use of the information to criminally investigate or prosecute any alcohol or drug abuse patient.[facility] HospitalIn the event this information is protected by the Federal Confidentiality of Alcohol and Drug Abuse Patient Records regulations: The Federal rules restrict any use of the information to criminally investigate or prosecute any alcohol or drug abuse patient.[facility] HospitalIn the event this information is protected by the Federal Confidentiality of Alcohol and Drug Abuse Patient Records regulations: The Federal rules restrict any use of the information to criminally investigate or prosecute any alcohol or drug abuse patient.[facility] HospitalIn the event this information is protected by the Federal Confidentiality of Alcohol and Drug Abuse Patient Records regulations: The Federal rules restrict any use of the information to criminally investigate or prosecute any alcohol or drug abuse patient.[facility] HospitalIn the event this information is protected by the Federal Confidentiality of Alcohol and Drug Abuse Patient Records regulations: The Federal rules restrict any use of the information to criminally investigate or prosecute any alcohol or drug abuse patient.[facility] HospitalIn the event this information is protected by the Federal Confidentiality of Alcohol and Drug Abuse Patient Records regulations: The Federal rules restrict any use of the information to criminally investigate or prosecute any alcohol or drug abuse patient.[facility] HospitalIn the event this information is protected by the Federal Confidentiality of Alcohol and Drug Abuse Patient Records regulations: The Federal rules restrict any use of the information to criminally investigate or prosecute any alcohol or drug abuse patient.[facility] HospitalIn the event this information is protected by the Federal Confidentiality of Alcohol and Drug Abuse Patient Records regulations: The Federal rules restrict any use of the information to criminally investigate or prosecute any alcohol or drug abuse patient.[facility] Reason for Visit (unrecogniz ed section and content) Specialty Diagnoses / Procedures Referred By Edy t Referred To Contact [facility] Diagnoses Severe persistent asthma without complication Procedures LUNG DIFFUSION CAPACITY (DLCO) DIFFUSING CAPACITY Analia Rivera PA-C [address] [place] [address] [facility] [place] [address] [place] [address] Referral ID Status Reason Start Date Expiration Date V isits Requested Visits Authorized [id number] Closed Auto-Generate d Referral 01/12/2023 02/11/2024 1 1 Reason Comments Established NI Patient Follow up Reason Comments Appointment Reason Comments 2 month F/U Specialty Diagnoses / Procedures Referred By Contac t Referred To Contact MR IMAGING Diagnoses Transient cerebral ischemia, unspecified type Aphasia Balance problems Procedures MRI BRAIN WO IVCON MRI BRAIN BRAIN STEM W/O CONTRAST MATERIAL Kandice Cornejo, ENDOSCOPY NURSE.BLOWING [employer]AND [address] [id number] Mr Imaging Referral ID Status Reason Start Date Expiration Date V isits Requested Visits Authorized [id number] Closed Auto-Generate d Referral 01/07/2022 02/06/2023 [address] Specialty Diagnoses / Procedures Referred By Contac t Referred To Contact CT IMAGING Diagnoses Lung nodules Procedures CT CHEST WO IVCON DIAGNOSTIC COMPUTED TOMOGRAPHY THORAX W/O CNTRST Rodrigo Lamb MD [id number] Imaging Referral ID Status Reason Start Date Expiration Date V isits Requested Visits Authorized [id number] Closed Auto-Generate d Referral 02/25/2022 01/29/2023 1 1 Reason Comments Patient Update Reason Comments Results Chest CT Reason Comments Refill Request Specialty Diagnoses / Procedures Referred By Contac t Referred To Contact PULMONARY MEDICINE Diagnoses Severe persistent asthma without complication Procedures SPIROMETRY BASELINE ONLY SPMTRY W/VC EXPIRATORY HIPOLITO W/WO MXML VOL VNTJ Analia Rivera, EFRAIN [address] [place] [address] Pulm Count Includes [facility] [address] [place] [address] Referral ID Status Reason Start Date Expiration Date V isits Requested Visits Authorized [id number] Closed Auto-Generated Referral Financial Clearance Required - [employer] Payor 04/22/2022 08/21/2022 1 1 Reason Comments Established Patient yearly follow up Specialty Diagnoses / Procedures Referred By Contac t Referred To Contact Pulmonary and Critical Care Medicine / PULMONARY MEDICINE Diagnoses 1 YR F/U ASTHMA Procedures RI EST ASTHMA Rodrigo Lamb MD [address] [place] [address] Analia Rivera PA-C [address] [facility] [address] [place] [address] Referral ID Status Reason Start Date Expiration Date Visits Re quested Visits Authorized [id number] Closed 04/22/2022 08/21/2022 1 1 Reason Onset Date Comments Refill Request 04/29/2022 Reason Comments Patient Update Medication Question Patient called janine praveening Neurontin. Reason Comments Established Patient Asthma Specialty Diagnoses / Procedures Referred By Contac t Referred To Contact Pulmonary and Critical Care Medicine / PULMONARY MEDICINE Diagnoses follow up after ct Procedures RI EST ASTHMA Analia Rivera PA-C [address] [facility] [place] [address] Hailey Hernandez MD [address] [facility] [place] [address] Referral ID Status Reason Start Date Expiration Date Visits Re quested Visits Authorized [id number] Closed 05/31/2022 08/21/2022 1 1 Reason Comments Orders Reason Comments Sinus Problem Left side of head ge ts headaches and ear aches. Chronic sinus infections. Had 3 weeks of vertigo, just finished. Sx of last infection started 3 weeks ago. Can have colored nasal drainage. CT about 1 year ago. 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 - Other Reason Comments Established Patient Asthma/Cough Reason Onset Date Comments Refill Request 04/18/2023 Reason Onset Date Comments Refill Request 04/18/2023 Refill Request 04/19/2023 Reason Comments Medication Problem Pregabalin approval Reason Comments Future Appointment Specialty Diagnoses / Procedures Referred By Contac t Referred To Contact MR IMAGING Diagnoses Acute left-sided low back pain with left-sided sciatica Procedures MRI LUMBAR SPINE WO IVCON MRI SPINAL CANAL LUMBAR W/O CONTRAST MATERIAL Jairo Gudino Jr., MD [address] [facility] [address] [place] [address] Mr Imaging [id number] Referral ID Status Reason Start Date Expiration Date V isits Requested Visits Authorized [id number] Closed Auto-Generate d Referral 04/29/2023 05/28/2024 [address] Specialty Diagnoses / Procedures Referred By Contac t Referred To Contact CT IMAGING Diagnoses Lung nodules Procedures CT CHEST WO IVCON DIAGNOSTIC COMPUTED TOMOGRAPHY THORAX W/O CNTRST Analia Rivera PA-C [address] [place] [address] Ct Imaging [id number] Referral ID Status Reason Start Date Expiration Date V isits Requested Visits Authorized [id number] Closed Auto-Generate d Referral 05/22/2023 02/11/2024 1 1 Specialty Diagnoses / Procedures Referred By Contac t Referred To [facility] [place] Diagnoses Severe persistent asthma without complication Procedures SPIROMETRY BASELINE ONLY SPMTRY W/VC EXPIRATORY HIPOLITO W/WO MXML VOL VNTJ Analia Rivera PA-C [address] [place] [address] [facility] [place] [address] [place] [address] Referral ID Status Reason Start Date Expiration Date V isits Requested Visits Authorized [id number] Closed Auto-Generate d Referral 01/12/2023 02/11/2024 1 1 Specialty Diagnoses / Procedures [facility] [place] Diagnoses Severe persistent asthma without complication Procedures LUNG VOLUMES Analia Rivera PA-C [address] [place] [address] [facility] [place] [address] [place], [place] [id number] Referral ID Status Reason Start Date Expiration Date V isits Requested Visits Authorized [id number] Closed Auto-Generate d Referral 01/12/2023 02/11/2024 1 1 Reason Comments Asthma Follow Up Reason Onset Date Comments Refill Request 07/21/2023 Care Teams (unrecognized sec tion and content) Tactical/Mobile Watch Officer Relationship Specialty Start Date End Date Davion Peoples MD [address] [place] [address] PCP - General Family Practice 05/09/12 Davion Peoples MD [address] [place] [address] Family Practice 05/09/12 Tactical/Mobile Watch Officer Relationship Specialty Start Date End Date Davion Peoples MD [address] [place] [address] PCP - General Family Practice 05/09/12 Davion Peoples MD [address] [place] [address] Family Practice 05/09/12 Tactical/Mobile Watch Officer Relationship Specialty Start Date End Date Davion Peoples MD [address] [place] [address] PCP - General Family Practice 05/09/12 Davion Peoples MD [address] [place] [address] Family Practice 05/09/12 Tactical/Mobile Watch Officer Relationship Specialty Start Date End Date Davion Peoples MD [address] [place] [address] PCP - General Family Practice 05/09/12 Davion Peoples MD [address] [place] [address] Family Practice 05/09/12 Tactical/Mobile Watch Officer Relationship Specialty Start Date End Date Davion Peoples MD [address] [place] [address] PCP - General Family Practice 05/09/12 Davion Peoples MD [address] [place] [address] Family Practice 05/09/12 Tactical/Mobile Watch Officer Relationship Specialty Start Date End Date Davion Peoples MD [address] [place] [address] PCP - General Family Practice 05/09/12 Davion Peoples MD [address] [place] [address] Family Practice 05/09/12 Tactical/Mobile Watch Officer Relationship Specialty Start Date End Date Davion Peoples MD [address] [place] [address] PCP - General Family Practice 05/09/12 Davion Peoples MD [address] [place] [address] Family Practice 05/09/12 Tactical/Mobile Watch Officer Relationship Specialty Start Date End Date Davion Peoples MD [address] [place] [address] PCP - General Family Practice 05/09/12 Davion Peoples MD [address] [place] [address] Family Practice 05/09/12 Tactical/Mobile Watch Officer Relationship Specialty Start Date End Date Davion Peoples MD [address] [place] [address] PCP - General Family Practice 05/09/12 Davion Peoples MD [address] [place] [address] Family Practice 05/09/12 Tactical/Mobile Watch Officer Relationship Specialty Start Date End Date Davion Peoples MD [address] [place] [address] PCP - General Family Practice 05/09/12 Davion Peoples MD [address] [place] [address] Family Practice 05/09/12 Tactical/Mobile Watch Officer Relationship Specialty Start Date End Date Davion Peoples MD [address] [place] [address] PCP - General Family Medicine 05/09/12 Davion Peoples MD [address] [facility] [place] [address] Family Medicine 05/09/12 Tactical/Mobile Watch Officer Relationship Specialty Start Date End Date Davion Peoples MD [address] [place] [address] PCP - General Family Medicine 05/09/12 Davion Peoples MD [address] [facility] [place] [address] Family Medicine 05/09/12 Tactical/Mobile Watch Officer Relationship Specialty Start Date End Date Davion Peoples MD [address] [facility] [place] [address] PCP - General Family Medicine 05/09/12 Davion Peoples MD [address] [facility] [facility] [place] [address] Family Medicine 05/09/12 Tactical/Mobile Watch Officer Relationship Specialty Start Date End Date Davion Peoples MD [address] [place] [address] PCP - General Family Medicine 05/09/12 Davion Peoples MD [address] [place] [address] Family Medicine 05/09/12 Tactical/Mobile Watch Officer Relationship Specialty Start Date End Date Davion Peoples MD [address] [place] [address] PCP - General Family Medicine 05/09/12 Davion Peoples MD [address] [place] [address] Family Medicine 05/09/12 Tactical/Mobile Watch Officer Relationship Specialty Start Date End Date Davion Peoples MD [address] [place] [address] PCP - General Family Medicine 05/09/12 Davion Peoples MD [address] [place] [address] Family Medicine 05/09/12 Tactical/Mobile Watch Officer Relationship Specialty Start Date End Date Davion Peoples MD [address] [place] [address] PCP - General Family Medicine 05/09/12 Davion Peoples MD [address] [place] [address] Family Medicine 05/09/12 Tactical/Mobile Watch Officer Relationship Specialty Start Date End Date Davion Peoples MD [address] [place] [address] PCP - General Family Medicine 05/09/12 Davion Peoples MD [address] [place] [address] Family Medicine 05/09/12 Tactical/Mobile Watch Officer Relationship Specialty Start Date End Date Davion Peoples MD [address] [place] [address] PCP - General Family Medicine 05/09/12 Davion Peoples MD [address] [place] [address] Family Medicine 05/09/12 Tactical/Mobile Watch Officer Relationship Specialty Start Date End Date Davion Peoples MD [address] [place] [address] PCP - General Family Medicine 05/09/12 Davion Peoples MD [address] [place] [address] Family Medicine 05/09/12 Tactical/Mobile Watch Officer Relationship Specialty Start Date End Date Davion Peoples MD [address] [place] [address] PCP - General Family Medicine 05/09/12 Davion Peoples MD [address] [place] [address] Family Medicine 05/09/12 Tactical/Mobile Watch Officer Relationship Specialty Start Date End Date Davion Peoples MD [address] [place] [address] PCP - General Family Medicine 05/09/12 Davion Peoples MD [address] [place] [address] Family Medicine 05/09/12 Tactical/Mobile Watch Officer Relationship Specialty Start Date End Date Davion Peoples MD [address] [place] [address] PCP - General Family Medicine 05/09/12 Davion Peoples MD [address] [place] [address] Family Medicine 05/09/12 Tactical/Mobile Watch Officer Relationship Specialty Start Date End Date Davion Peoples MD [address] [place] [address] PCP - General Family Medicine 05/09/12 Davion Peoples MD [address] [place] [address] Family Medicine 05/09/12 Tactical/Mobile Watch Officer Relationship Specialty Start Date End Date Davion Peoples MD [address] [place] [address] PCP - General Family Medicine 05/09/12 Davion Peoples MD [address] [place] [address] Family Medicine 05/09/12 Tactical/Mobile Watch Officer Relationship Specialty Start Date End Date Davion Peoples MD [address] [place] [address] PCP - General Family Medicine 05/09/12 Davion Peoples MD [address] [place] [address] Family Medicine 05/09/12 Tactical/Mobile Watch Officer Relationship Specialty Start Date End Date Davion Peoples MD [address] [place], [place] [address] PCP - General Family Medicine 05/09/12 Davion Peoples MD [address] [place] [address] Family Medicine 05/09/12 Tactical/Mobile Watch Officer Relationship Specialty Start Date End Date Davion Peoples MD [address] [place], [place] [id number] PCP - General Family Medicine 05/09/12 Davion Peoples MD [address] [place], [place] [id number] Family Medicine 05/09/12 Tactical/Mobile Watch Officer Relationship Specialty Start Date End Date Davion Peoples MD [address] [place], [place] [id number] PCP - General [facility] Medicine 05/09/12 Davion Peoples MD [address] [place], [place] [address] Family Medicine 05/09/12 FOR RECORDS PERTAINING TO PATIENTS WHO ARE OR HAVE BEEN ENROLLED IN A CHEMICAL DEPENDENCY/SUBSTANCEABUSE PROGRAM, SOME INFORMATION MAY BE OMITTED. This clinical summary was aggregated from multiple sources. Caution should be exercised in using it in the provision of clinical care. This summary normalizes information from multiple sources, and as a consequence, information in this document may materially change the coding, format and clinical context of patient data. In addition, data may be omitted in some cases. CLINICAL DECISIONS SHOULD BE BASED ON THE PRIMARY CLINICAL RECORDS. [facility]. provides no warranty or guarantee of the accuracy or completeness of information in this document.
--- OUTSIDE RECORDS SUMMARY | 2023-10-12 19:50 | XMS RPT_ITS | CCD ---
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 [id number] Author: Analia Rivera PA-C Service: ? Author Type: Physician Keno Writer/Runner Type: Progress Notes Filed: 01/12/2023 4:07 PM Note Text: Patient: Rajwinder Wylie PCP: Davion Peoples MD CC: pre-op eval HPI: Rajwinder Wylie 72 year old female former 10 pack year smoker with PMH significant for asthma, SANTHOSH on CPAP, RA, Sjogren's, HTN and pulmonary nodularity. 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 Did have [...] to be CPAP compliant. RA (rheumatoid arthritis) ([facility]) 2014 Sinus arrhythmia 05/16/2013 Outside post 911 follow-up screening, 2012. Sinusitis Sjogren's disease ([facility]) Allergies: Bactrim [Sulfametho* Hives Erythromycin [...] ER (EFFEXOR XR) 150 mg 24 hr [id number] mg once daily.Disp: Rfl: fluticasone (FLONASE) 50 mcg/actuation nasal sprayUse 1 [place] in each nostril once daily.Disp: 1 BottleRfl: 5 losartan (COZAAR) 50 mg tabletTake 1 tablet by mouth once daily.Disp: Rfl: citalopram (CELEXA) 20 mg tabletTake 40 mg by mouth once daily. Disp: Rfl: QUEtiapine (SEROQUEL) 100 mg tabletTake 200 mg by mouth daily at bedtime. Disp: Rfl: amLODIPine 5 mg ORAL tabletTake 5 m (more content not included)... [facility] 01-03-2023 Miscellaneous Notes Patient scheduled by PSS. Celia Jenkins LPN documented in this encounter [facility] 12-23-2022 Note HNO ID: [id number] Author: Kandice Cornejo APRN.ELECTROMECHANICAL ENGINEER Service: ? Author Type: Nurse Practitioner Type: Progress Notes Filed: 12/23/2022 12:44 PM Note Text: [facility] Neurologic Morning Sun Follow-up Visit Follow-up note December 23, 2022 [...] fine. States she recently ran out of [employer] and now having pain in fingers and toes. Has had tinnitus; worse since . Since vertigo in October states tinnitus has doubled and is constant. Still following with [place] [facility] for her low back. Will be [...] to be CPAP compliant. RA (rheumatoid arthritis) ([facility]) 2013 Sinus arrhythmia 05/16/2013 Outside post 05-02 follow-up screening, 2012. Sinusitis Sjogren's disease ([facility]) PAST SURGICAL HISTORY Procedure Laterality [...] hr tablet Ta (more content not included)... [facility] 12-23-2022 History of Presen t illness Narrative Images from the original note were not included. [facility] Neurologic Morning Sun Follow-up Visit Follow-up note December 23, 2022 [...] to be CPAP compliant. RA (rheumatoid arthritis) ([facility]) 2013 Sinus arrhythmia 05/16/2013 Outside post 9-11 follow-up screening, 2012. Sinusitis Sjogren's disease ([facility]) PAST SURGICAL HISTORY Procedure Laterality [...] (FLONASE) 50 mcg/actuation nasal spray Use 1 [place] in each nostril once daily. losartan (COZAAR) [...] Staff Review Reviewed by Erin Bell MD ([id number]) Protein, Urine Random 0 - 20 mg/dL 5 Albumin, Urine (Prot Electro) % 35.7 Alpha 1 Globulin, Urine % 4.3 Alpha 2 Globulin, Urine % 26.1 Beta Globulin, Urine % 22.4 Gamma Globulin, Urine % 11.5 Interpretation (Urine Electro) SEE COMMENT Staff Review (Urine Electro) Reviewed by Erin Bell MD ([id number]) Hemoglobin A1C 4.3 - 5.6 % 6.8 [...] Continue follow up with ENT. Kandice Cornejo APRN.ELECTROMECHANICAL ENGINEER I spent a total of 45 minutes on the date of the service which included preparing to see the patient, [id number] patient care, completing clinical documentation, obtaining and/or reviewing separately obtained history, performing a medically appropriate examination, counseling and educating the patient/family/caregiver, and ordering medications, tests, or procedures. PDMP website checked and validated. All prescriptions have been APPROPRIATELY filled. No suspicious activity was identified. December 23, 2022 Kandice Cornejo APRN.ELECTROMECHANICAL ENGINEER documented in this encounter [facility] 11-15-2022 Note HNO ID: [id number] Author: William Cabrera MD Service: ? Author [...] physician via mail or electronic medical record. [facility] 11-15-2022 History of Presen t illness Narrative [...] electronic medical record. documented in this encounter [facility] 07-26-2022 Miscellaneous Notes Patient has been identified [...] Becky Diop MA documented in this encounter [facility] 07-12-2022 Miscellaneous Notes Faxed order signed by Dr. Hernandez for [facility]. Almaz Hull LPN documented in this encounter [facility] 05-31-2022 History of Presen t illness Narrative . Respiratory Morning Sun Note Patient name: Rajwinder Wylie PCP: Davion Peoples MD CC: follow-up chest CT HPI: Rajwinder Wylie 71 year old female former 10 pack year smoker with PMH significant for asthma, SANTHOSH on CPAP, RA, Sjogren's, HTN and pulmonary nodularity. 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 Did had [...] DATE OF EXAM: Mar 10 2022 1:13PM [facility]41 - CT CHEST WO IVCON / [...] DATE OF EXAM: May 31 2022 2:31PM [facility] - CT CHEST WO IVCON / [...] to be CPAP compliant. RA (rheumatoid arthritis) ([facility]) 2013 Sinus arrhythmia 05/16/2013 Outside post 05-02 follow-up screening, 2012. Sinusitis Sjogren's disease ([facility]) ALLERGIES Allergen Reactions Bactrim [Sulfametho* [...] fluticasone (FLONASE) 50 mcg/actuation nasal spray^Use 1 [place] in each nostril once daily.^Disp: 1 Bottle^Rfl: [...] development of bronchiectasis Hailey Hernandez MD Respiratory Morning Sun documented in this encounter [facility] 05-24-2022 Miscellaneous Notes Information faxed per pt request. Jesica Galo LPN Patient aware the Lyrica was escripted to the pharmacy. Patient requesting to have any recent health information faxed to the Company handling her care since . Jesica Galo LPN documented in this encounter [facility] 04-29-2022 Miscellaneous Notes FYI The patient had blood work done with her PCP's office. The patient is calling and having the lab results faxed to the [place] office. Received a request from [employer] for a 90 day supply rx by [...] tablet by mouth once daily. Pharmacy Name: [id number] Phone #: [phone] Sheba Ackerman 01/07/22 Assessment/Plan: G62.9 Neuropathy (primary [...] BRAIN WO IVCON documented in this encounter [facility] 04-22-2022 History of Presen t illness Narrative [facility] Respiratory Morning 04/22/2022: Name: Rajwinder Wylie : 1950 The [...] FEF75 (L/sec) 0.47 0.17 1.25 0.51 109 SLF64-80 (L/sec) 1.90 0.87 3.37 1.92 101 PEF [...] Analia Rivera PA-C documented in this encounter [facility] 04-22-2022 Nurse Note Intake information documented in the prior visit with ADI Murillo today. documented in this encounter [facility] 04-22-2022 History of Presen t illness Narrative PULM FUNCTION SMARTBLOCK: Provider: Analia Rivera PA-C Assisting Tech: ADI Murillo Spirometry: 1 documented in this encounter [facility] 04-16-2022 Miscellaneous Notes RX INSTRUCTIONS: Pharmacy initiated this request. No need to notify patient. Last OV: 01/07/22 with KD Last refill: 04/24/21 With 90 and 1 refills Follow up: No F/U scheduled at this time Esperanza Veliz MA documented in this encounter [facility] 03-15-2022 Miscellaneous Notes PDMP website checked and validated. All prescriptions have been APPROPRIATELY filled. No suspicious activity was identified. March 15, 2022 Kandice Cornejo APRN.ELECTROMECHANICAL ENGINEER Patient has been identified by name and date of : Yes Pharmacy phones for refill(s): Pending Prescriptions Disp Refills PREGABALIN 100 MG CAPSULE 60 capsule 2 Sig: TAKE 1 CAPSULE BY MOUTH TWICE DAILY FOR 90 DAYS. YUN Class: C-V DINORA: Yes Date of last office visit in Neurology: RAMIRO 01/07/22 with KD Appointment scheduled 04/15/22 with [facility] Notes: Assessment/Plan: G62.9 Neuropathy (primary encounter [...] you. ZAHIRA Sotomayor documented in this encounter [facility] 03-12-2022 Miscellaneous Notes Spoke with Rajwinder regarding [...] to be cautious. documented in this encounter [facility] 03-11-2022 Miscellaneous Notes Reschedule information given to [...] when rib heals. documented in this encounter [facility] 03-10-2022 History of Presen t illness Narrative [...] 2022 2:07 PM documented in this encounter [facility] 01-22-2022 History of Presen t illness Narrative [...] 2022 1:07 PM documented in this encounter [facility] 01-07-2022 History of Presen t illness Narrative Images from the original note were not included. [facility] Neurologic Morning Sun Follow-up Visit Follow-up note January 07, 2022 [...] replace equipment regularly with avoidance of ozone saw cleaner. 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 5. Low back pain, unspecified [...] this could potentially contribute. Had COVID after [place]; was deployed to [place]. Having difficulty with speech following infection. Notes expressive aphasia. Feels like eyes are bulging out. Still taking Keppra 750mg. Wants records faxed to [facility] physicians. States Dr. Peoples recommended that she [...] to be CPAP compliant. RA (rheumatoid arthritis) ([facility]) 2013 Sinus arrhythmia 05/16/2013 Outside [...] (FLONASE) 50 mcg/actuation nasal spray Use 1 [place] in each nostril once daily. losartan (COZAAR) [...] Staff Review Reviewed by Erin Bell MD ([id number]) Protein, Urine Random 0 - 20 mg/dL 5 Albumin, Urine (Prot Electro) % 35.7 Alpha 1 Globulin, Urine % 4.3 Alpha 2 Globulin, Urine % 26.1 Beta Globulin, Urine % 22.4 Gamma Globulin, Urine % 11.5 Interpretation (Urine Electro) SEE COMMENT Staff Review (Urine Electro) Reviewed by Erin Bell MD ([id number]) Hemoglobin A1C 4.3 - 5.6 % 6.8 [...] Sciatica of right side Comment: Following with [facility]. Continue Lyrica 100mg BID. Office Visit on 01/07/22 MRI BRAIN VENKAT Cornejo APRN.ELECTROMECHANICAL ENGINEER I spent a total of 40 minutes on the date of the service which included preparing to see the patient, [id number] patient care, completing clinical documentation, obtaining and/or reviewing separately obtained history, performing a medically appropriate examination, counseling and educating the patient/family/caregiver and ordering medications, tests, or procedures. PDMP website checked and validated. All prescriptions have been APPROPRIATELY filled. No suspicious activity was identified. January 07, 2022 Kandice Cornejo APRN.JOANN documented in this encounter [facility] 12-30-2021 Miscellaneous Notes Annual visit to evaluate symptoms spirometry and surveillance CT Chest recommended at 02/2021 Pulmonary visit. Orders placed for spirometry and chest CT. Appointment with Analia Rivera PA-C or Hailey Hernandez MD in [place]. Will need orders placed. Celia Jenkins LPN Patient calling to schedule pulmonary CT scan and breahting test. States she keeps getting reminders from [facility] to do the testing. Almaz Hull LPN documented in this encounter [facility] 11-06-2021 History of Presen t illness Narrative [...] of both cervical and lumbar spine through [facility]. 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 Pt has also had 2 toes amputated since I last saw her (2nd toe on each foot). Numbness and tingling now resolved since on Lyrica 75mg BID - no side effects. Also on Keppra. Lumbar pain stable. Note compression fx going back to 5th grade. Pain no better. Still following with [place] [facility]. Also having phantom pain where R [...] (FLONASE) 50 mcg/actuation nasal spray Use 1 [place] in each nostril once daily. losartan (COZAAR) [...] 0.15 % (205.5 mcg) spry Use 1 [place] in each nostril twice daily. HISTORIES PAST MEDICAL HISTORY Diagnosis Date Asthma First degree heart block 05/16/2013 Outside post 05-02 follow-up screening, 2012. Hypertension Hypertension 05/16/2013 Lyme disease Meniere disease Obesity 05/16/2013 SANTHOSH (obstructive sleep apnea) 05/16/2013 CPAP 11. Claims to be CPAP compliant. RA (rheumatoid arthritis) ([facility]) 2013 Sinus arrhythmia 05/16/2013 Outside [...] replace equipment regularly with avoidance of ozone saw cleaner. 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 5. Low back pain, unspecified back pain laterality, unspecified chronicity, unspecified whether sciatica present - ICD9: 724.2, ICD10: M54.50 Continue to follow with [facility]. Increasing Lyrica to 100mg BID as above. Jairo Gudino MD I spent 40+ minutes in the visit, with more than 50% of the total gogv-re-ratx time of the visit in counseling / coordination of care. PDMP website checked and validated. All prescriptions have been APPROPRIATELY filled. No suspicious activity was identified. 11/06/2021 by Jairo Gudino MD documented in this encounter [facility] Diagnosis Severe persistent asthma without complication- Primary Lung nodules Other nonspecific abnormal finding of lung field [facility] Diagnosis Neuropathy- Primary Mononeuritis of unspecified [...] right side [facility]atica [facility] Transient cerebral ischemia, unspecified type Aphasia Balance problems Other symptoms involving nervous and musculoskeletal systems [facility] Diagnosis Lung nodules Other nonspecific abnormal finding of lung field [facility] Diagnosis Neuropathy Mononeuritis of unspecified site RLS (restless legs syndrome) Restless legs syndrome (RLS) Nonintractable episodic headache, unspecified headache type SANTHOSH (obstructive sleep apnea) Obstructive sleep apnea (adult) (pediatric) Sciatica of right side Sciatica [facility] Diagnosis RLS (restless legs syndrome) Restless legs syndrome (RLS) Neuropathy Mononeuritis of unspecified site Nonintractable episodic headache, unspecified headache type [facility] Diagnosis Severe persistent asthma without complication- Primary [facility] Diagnosis Severe persistent asthma without complication- Primary Lung nodules Other nonspecific abnormal finding of lung field SANTHOSH (obstructive sleep apnea) Obstructive sleep apnea (adult) (pediatric) Dyspnea and respiratory abnormalities Other dyspnea and respiratory abnormality [facility]* Diagnosis RLS (restless legs syndrome) Restless legs syndrome (RLS) Neuropathy Mononeuritis of unspecified site Nonintractable episodic headache, unspecified headache type [facility]* Diagnosis Lung nodules- Primary Other nonspecific abnormal finding of lung field Severe persistent asthma without complication COVID-19 long hauler Sjogren's syndrome, with unspecified organ involvement (HCC) documented [facility]* Diagnosis RLS (restless legs syndrome) Restless legs syndrome (RLS) Neuropathy Mononeuritis of unspecified site Nonintractable episodic headache, unspecified headache type documented [facility]* Diagnosis Tinnitus, left ear- Primary Vertigo Dizziness and giddiness documented in this encounter [facility] note* Diagnosis Neuropathy- Primary Mononeuritis of [...] Dizziness and giddiness documented [facility] this [facility]* Diagnosis Dyspnea and respiratory abnormalities- Primary Other dyspnea and respiratory abnormality Acute bronchitis, unspecified organism Sinobronchitis Unspecified sinusitis (chronic) Severe persistent asthma without complication COVID-19 long hauler Sjogren's syndrome, with unspecified organ involvement (HCC) SANTHOSH (obstructive sleep apnea) Obstructive sleep apnea (adult) (pediatric) Lung nodule Solitary pulmonary nodule [facility] Diagnosis Acute bronchitis, unspecified organism Sinobronchitis Unspecified sinusitis (chronic) [facility] Diagnosis Severe persistent asthma without complication [facility] Diagnosis Neuropathy Mononeuritis of unspecified site RLS (restless legs syndrome) Restless legs syndrome (RLS) Nonintractable episodic headache, unspecified headache type SANTHOSH (obstructive sleep apnea) Obstructive sleep apnea (adult) (pediatric) Sciatica of right side Sciatica [facility] Diagnosis Dyspnea and respiratory abnormalities Other dyspnea and respiratory abnormality [facility] Diagnosis Acute left-sided low back pain with left-sided sciatica [facility] Diagnosis Lung nodules Other nonspecific abnormal finding of lung field [facility] Diagnosis Severe persistent asthma without complication [facility] Diagnosis Severe persistent asthma without complication [facility] Diagnosis Severe persistent asthma without complication- Primary Sjogren's syndrome, with unspecified organ involvement (HCC) Lung nodules Other nonspecific abnormal finding of lung field [facility] Diagnosis Neuropathy Mononeuritis of unspecified site RLS (restless legs syndrome) Restless legs syndrome (RLS) Nonintractable episodic headache, unspecified headache type documented in this encounter [facility] Outpatient Procedure (Routine) - Waiting for Response Specialty Diagnoses / Procedures Referred By Contac t Referred To Contact [facility] Diagnoses SANTHOSH (obstructive sleep apnea) Dyspnea and respiratory abnormalities Procedures [facility] W/WOM-MODE COMPL SPEC&COLR D Analia Rivera PA-C [address] [address] Card [facility] [address] [place] [address] Referral ID Status Reason Start Date Expiration Date Visits Requested Visits Authorized [id number] Waiting for Response Auto-Generate d Referral Financial Clearance Required - OON Payor 04/22/2022 04/22/2023 1 1 * MRI/CT (Routine) - Authorized Specialty Diagnoses / Procedures Referred By Edy t Referred To Contact PULMONARY MEDICINE Diagnoses Lung nodules Procedures CT CHEST WO IVCON DIAGNOSTIC COMPUTED TOMOGRAPHY THORAX W/O Analia Reyna PA-C [address] [address] [facility] [address] [place] [address] Referral ID Status Reason Start Date Expiration Date Visits Requested Visits Authorized [id number] Authorized Auto-Generate d Referral Financial Clearance Required - OON Payor 2 08/21/2022 1 1 [facility] Summary Purpose Family History No Family History [...] COMPUTED TOMOGRAPHY THORAX W/O Rodrigo Murphy MD [address] [place] [address] Ct Imaging Referral ID Status Reason Start Date Expiration Date Visits Requested Visits Authorized [id number] Pending Review Auto-Generat ed Referral 02/25/2022 01/29/2023 1 1 Specialty Diagnoses / Procedures Referred By Edy t Referred To Contact [facility] Diagn[facility] Severe persistent asthma without complication Procedures SPIROMETRY BASELINE ONLY SPMTRY W/VC EXPIRATORY HIPOLITO W/WO MXML VOL VNTJ Rodrigo Lamb MD [address] [place] [address] Respiratory Morning Sun [facility] [place] [address] Referral ID Status Reason Start Date Expiration Date Visits Requested Visits Authorized [id number] Pending Review Auto-Generat ed Referral 02/25/2022 01/29/2023 1 1 Specialty Diagnoses / Procedures Referred By Contac t Referred To Contact MR IMAGING Diagnoses Transient cerebral ischemia, unspecified type Aphasia Balance problems Procedures MRI BRAIN WO IVCON MRI BRAIN BRAIN STEM W/O CONTRAST MATERIAL Kandice Cornejo, RAEGAN.ELECTROMECHANICAL ENGINEER [address] [place] [address] Mr Imaging Referral ID Status Reason Start Date Expiration Date Visits Requested Visits Authorized [id number] Authorized Auto-Generat ed Referral 01/07/2022 02/06/2023 1 1 Referral ID Status Reason Start Date Expiration Date V isits Requested Visits Authorized [id number] Closed Auto-Generate d Referral 01/07/2022 02/06/2023 1 1 Referral ID Status Reason Start Date Expiration Date V isits Requested Visits Authorized [id number] Closed Auto-Generate d Referral 02/25/2022 01/29/2023 1 1 Specialty Diagnoses / Procedures Referred By Contac t Referred To Contact Diagnoses Tinnitus, left ear Procedures HEARING TEST/AUDIOGRAM COMPRE AUDIOMETRY THRESHOLD EVAL William Concepcion MD [address] [address] [facility] [address] [place] [address] Referral ID Status Reason Start Date Expiration Date Visits Requested Visits Authorized [id number] Pending Review Auto-Generat ed Referral 11/15/2022 02/13/2023 1 1 Specialty Diagnoses / Procedures Referred By Contac t Referred To Contact Diagnoses Neuropathy RLS (restless legs syndrome) Nonintractable episodic headache, unspecified headache type SANTHOSH (obstructive sleep apnea) Sciatica of right side Kandice Cornejo, RAEGAN.ELECTROMECHANICAL ENGINEER [address] [place] [address] Referral ID Status Reason Start Date Expiration Date V isits Requested Visits Authorized [id number] Pending Review 1 1 Specialty Diagnoses / Procedures Referred By Contac t Referred To Contact MR IMAGING Diagnoses Acute left-sided low back pain with left-sided sciatica Procedures MRI LUMBAR SPINE WO IVCON MRI SPINAL CANAL LUMBAR W/O CONTRAST MATERIAL Jairo Gudino Jr., MD [address] [place] [address] [place] [address] Referral ID Status Reason Start Date Expiration Date V isits Requested Visits Authorized [id number] Closed Auto-Generate d Referral 04/29/2023 05/28/2024 1 1 Additional Source Comments INFORMATION SOURCE (unrecogn ized section and content) DATE CREATED AUTHOR AUTHOR'S ORGANIZ ATION 02/14/2018 [facility] DATE CREATED AUTHOR AUTHOR'S ORGANIZ ATION 08/13/2020 [facility] DATE CREATED AUTHOR AUTHOR'S ORGANIZ ATION 05/08/2021 [facility] DATE CREATED AUTHOR AUTHOR'S ORGANIZ ATION 09/27/2023 [facility] Source Comments (unrecognize d section and content) In the event this informatio n is protected by the Federal Confidentiality of Alcohol and Drug Abuse Patient Records regulations: The Federal rules restrict any use of the information to criminally investigate or prosecute any alcohol or drug abuse patient.[facility] the event this information is protected by the Federal Confidentiality of Alcohol and Drug Abuse Patient Records regulations: The Federal rules restrict any use of the information to criminally investigate or prosecute any alcohol or drug abuse patient.[facility] the event this information is protected by the Federal Confidentiality of Alcohol and Drug Abuse Patient Records regulations: The Federal rules restrict any use of the information to criminally investigate or prosecute any alcohol or drug abuse patient.[facility] the event this information is protected by the Federal Confidentiality of Alcohol and Drug Abuse Patient Records regulations: The Federal rules restrict any use of the information to criminally investigate or prosecute any alcohol or drug abuse patient.[facility] the event this information is protected by the Federal Confidentiality of Alcohol and Drug Abuse Patient Records regulations: The Federal rules restrict any use of the information to criminally investigate or prosecute any alcohol or drug abuse patient.[facility] the event this information is protected by [...] or prosecute any alcohol or drug abuse patient.[facility] the event this information is protected by the Federal Confidentiality of Alcohol and Drug Abuse Patient Records regulations: The Federal rules restrict any use of the information to criminally investigate or prosecute any alcohol or drug abuse patient.[facility] the event this information is protected by the Federal Confidentiality of Alcohol and Drug Abuse Patient Records regulations: The Federal rules restrict any use of the information to criminally investigate or prosecute any alcohol or drug abuse patient.[facility] the event this information is protected by the Federal Confidentiality of Alcohol and Drug Abuse Patient Records regulations: The Federal rules restrict any use of the information to criminally investigate or prosecute any alcohol or drug abuse patient.[facility] the event this information is protected by the Federal Confidentiality of Alcohol and Drug Abuse Patient Records regulations: The Federal rules restrict any use of the information to criminally investigate or prosecute any alcohol or drug abuse patient.[facility] the event this information is protected by the Federal Confidentiality of Alcohol and Drug Abuse Patient Records regulations: The Federal rules restrict any use of the information to criminally investigate or prosecute any alcohol or drug abuse patient.[facility] the event this information is protected by the Federal Confidentiality of Alcohol and Drug Abuse Patient Records regulations: The Federal rules restrict any use of the information to criminally investigate or prosecute any alcohol or drug abuse patient.[facility] the event this information is protected by the Federal Confidentiality of Alcohol and Drug Abuse Patient Records regulations: The Federal rules restrict any use of the information to criminally investigate or prosecute any alcohol or drug abuse patient.[facility] the event this information is protected by the Federal Confidentiality of Alcohol and Drug Abuse Patient Records regulations: The Federal rules restrict any use of the information to criminally investigate or prosecute any alcohol or drug abuse patient.[facility] the event this information is protected by the Federal Confidentiality of Alcohol and Drug Abuse Patient Records regulations: The Federal rules restrict any use of the information to criminally investigate or prosecute any alcohol or drug abuse patient.[facility] the event this information is protected by the Federal Confidentiality of Alcohol and Drug Abuse Patient Records regulations: The Federal rules restrict any use of the information to criminally investigate or prosecute any alcohol or drug abuse patient.[facility] the event this information is protected by the Federal Confidentiality of Alcohol and Drug Abuse Patient Records regulations: The Federal rules restrict any use of the information to criminally investigate or prosecute any alcohol or drug abuse patient.[facility] the event this information is protected by the Federal Confidentiality of Alcohol and Drug Abuse Patient Records regulations: The Federal rules restrict any use of the information to criminally investigate or prosecute any alcohol or drug abuse patient.[facility] the event this information is protected by the Federal Confidentiality of Alcohol and Drug Abuse Patient Records regulations: The Federal rules restrict any use of the information to criminally investigate or prosecute any alcohol or drug abuse patient.[facility] the event this information is protected by the Federal Confidentiality of Alcohol and Drug Abuse Patient Records regulations: The Federal rules restrict any use of the information to criminally investigate or prosecute any alcohol or drug abuse patient.[facility] the event this information is protected by the Federal Confidentiality of Alcohol and Drug Abuse Patient Records regulations: The Federal rules restrict any use of the information to criminally investigate or prosecute any alcohol or drug abuse patient.[facility] the event this information is protected by the Federal Confidentiality of Alcohol and Drug Abuse Patient Records regulations: The Federal rules restrict any use of the information to criminally investigate or prosecute any alcohol or drug abuse patient.[facility] the event this information is protected by the Federal Confidentiality of Alcohol and Drug Abuse Patient Records regulations: The Federal rules restrict any use of the information to criminally investigate or prosecute any alcohol or drug abuse patient.[facility] the event this information is protected by the Federal Confidentiality of Alcohol and Drug Abuse Patient Records regulations: The Federal rules restrict any use of the information to criminally investigate or prosecute any alcohol or drug abuse patient.[facility] the event this information is protected by the Federal Confidentiality of Alcohol and Drug Abuse Patient Records regulations: The Federal rules restrict any use of the information to criminally investigate or prosecute any alcohol or drug abuse patient.[facility] the event this information is protected by the Federal Confidentiality of Alcohol and Drug Abuse Patient Records regulations: The Federal rules restrict any use of the information to criminally investigate or prosecute any alcohol or drug abuse patient.[facility] the event this information is protected by the Federal Confidentiality of Alcohol and Drug Abuse Patient Records regulations: The Federal rules restrict any use of the information to criminally investigate or prosecute any alcohol or drug abuse patient.[facility] the event this information is protected by the Federal Confidentiality of Alcohol and Drug Abuse Patient Records regulations: The Federal rules restrict any use of the information to criminally investigate or prosecute any alcohol or drug abuse patient.[facility] the event this information is protected by the Federal Confidentiality of Alcohol and Drug Abuse Patient Records regulations: The Federal rules restrict any use of the information to criminally investigate or prosecute any alcohol or drug abuse patient.[facility] the event this information is protected by the Federal Confidentiality of Alcohol and Drug Abuse Patient Records regulations: The Federal rules restrict any use of the information to criminally investigate or prosecute any alcohol or drug abuse patient.[facility] the event this information is protected by the Federal Confidentiality of Alcohol and Drug Abuse Patient Records regulations: The Federal rules restrict any use of the information to criminally investigate or prosecute any alcohol or drug abuse patient.[facility] the event this information is protected by the Federal Confidentiality of Alcohol and Drug Abuse Patient Records regulations: The Federal rules restrict any use of the information to criminally investigate or prosecute any alcohol or drug abuse patient.[facility] the event this information is protected by the Federal Confidentiality of Alcohol and Drug Abuse Patient Records regulations: The Federal rules restrict any use of the information to criminally investigate or prosecute any alcohol or drug abuse patient.[facility] the event this information is protected by the Federal Confidentiality of Alcohol and Drug Abuse Patient Records regulations: The Federal rules restrict any use of the information to criminally investigate or prosecute any alcohol or drug abuse patient.[facility] the event this information is protected by the Federal Confidentiality of Alcohol and Drug Abuse Patient Records regulations: The Federal rules restrict any use of the information to criminally investigate or prosecute any alcohol or drug abuse patient.[facility] Reason for Visit (unrecogniz ed section and content) Specialty Diagnoses / Procedures Referred By Edy t Referred To Contact [facility] Diagnoses Severe persistent asthma without complication Procedures LUNG DIFFUSION CAPACITY (DLCO) DIFFUSING CAPACITY Analia Rivera PA-C [address] [place] [address] Respiratory Morning Sun [address] [place] [address] Referral ID Status Reason Start Date Expiration Date V isits Requested Visits Authorized [id number] Closed Auto-Generate d Referral 01/12/2023 02/11/2024 1 1 Reason Comments Established NI Patient Follow up Reason Comments Appointment Reason Comments 2 month F/U Specialty Diagnoses / Procedures Referred By Contac t Referred To Contact MR IMAGING Diagnoses Transient cerebral ischemia, unspecified type Aphasia Balance problems Procedures MRI BRAIN WO IVCON MRI BRAIN BRAIN STEM W/O CONTRAST MATERIAL Kandice Cornejo, SECURITY INSTALLATION SALES TECHNICIAN.ELECTROMECHANICAL ENGINEER [address] [place] [id number] Mr Imaging Referral ID Status Reason Start Date Expiration Date V isits Requested Visits Authorized [id number] Closed Auto-Generate d Referral 01/07/2022 02/06/2023 [address] Specialty Diagnoses / Procedures Referred By Contac t Referred To Contact CT IMAGING Diagnoses Lung nodules Procedures CT CHEST WO IVCON DIAGNOSTIC COMPUTED TOMOGRAPHY THORAX W/O CNTRST Rodrigo Lamb MD [address] [id number] [address] Imaging Referral ID Status Reason Start Date Expiration Date V isits Requested Visits Authorized [id number] Closed Auto-Generate d Referral 02/25/2022 01/29/2023 1 1 Reason Comments Patient Update Reason Comments Results Chest CT Reason Comments Refill Request Specialty Diagnoses / Procedures Referred By Contac t Referred To Contact PULMONARY MEDICINE Diagnoses Severe persistent asthma without complication Procedures SPIROMETRY BASELINE ONLY SPMTRY W/VC EXPIRATORY HIPOLITO W/WO MXML VOL VNTJ Analia Rivera, EFRAIN [address] [place] [address] Pulm [facility] [address] [place] [address] Referral ID Status Reason Start Date Expiration Date V isits Requested Visits Authorized [id number] Closed Auto-Generated Referral Financial Clearance Required - OON Payor 04/22/2022 08/21/2022 1 1 Reason Comments Established Patient yearly follow up Specialty Diagnoses / Procedures Referred By Contac t Referred To Contact Pulmonary and Critical Care Medicine / PULMONARY MEDICINE Diagnoses 1 YR F/U ASTHMA Procedures RI EST ASTHMA Rodrigo Lamb MD [address] [place] [address] Analia Rivera PA-C [address] [facility] [address] [place] [address] Referral ID Status Reason Start Date Expiration Date Visits Re quested Visits Authorized [id number] Closed 04/22/2022 08/21/2022 1 1 Reason Onset Date Comments Refill Request 04/29/2022 Reason Comments Patient Update Medication Question Patient called janine praveening Neurontin. Reason Comments Established Patient Asthma Specialty Diagnoses / Procedures Referred By Contac t Referred To Contact Pulmonary and Critical Care Medicine / PULMONARY MEDICINE Diagnoses follow up after ct Procedures RI EST ASTHMA Analia Rivera PA-C [address] [facility] [place] [address] Hailey Hernandez MD [address] [facility] [place] [address] Referral ID Status Reason Start Date Expiration Date Visits Re quested Visits Authorized [id number] Closed 05/31/2022 08/21/2022 1 1 Reason Comments Orders Reason Comments Sinus Problem Left side of head ge ts headaches and ear aches. Chronic sinus infections. Had 3 weeks of vertigo, just finished. Sx of last infection started 3 weeks ago. Can have colored nasal drainage. CT about 1 year ago. 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 Reason Comments Established Patient Asthma/Cough [...] W/O CONTRAST MATERIAL Jairo Gudino Jr., MD [address] [facility] [address] [place] [address] Mr Imaging [id number] Referral ID Status Reason Start Date Expiration Date V isits Requested Visits Authorized [id number] Closed Auto-Generate d Referral 04/29/2023 05/28/2024 [address] Specialty Diagnoses / Procedures Referred By Contac t Referred To Contact CT IMAGING Diagnoses Lung nodules Procedures CT CHEST WO IVCON DIAGNOSTIC COMPUTED TOMOGRAPHY THORAX W/O CNTRST Analia Rivera PA-C [address] [place] [address] Ct Imaging [facility] Referral ID Status Reason Start Date Expiration Date V isits Requested Visits Authorized [id number] Closed Auto-Generate d Referral 05/22/2023 02/11/2024 1 1 Specialty Diagnoses / Procedures Referred By Contac t Referred To [facility] [place] Diagnoses Severe persistent asthma without complication Procedures SPIROMETRY BASELINE ONLY SPMTRY W/VC EXPIRATORY HIPOLITO W/WO MXML VOL VNTJ Analia Rivera PA-C [address] [place] [address] Respiratory Morning Sun [address] [place] [address] Referral ID Status Reason Start Date Expiration Date V isits Requested Visits Authorized [id number] Closed Auto-Generate d Referral 01/12/2023 02/11/2024 1 1 Specialty Diagnoses / Procedures [facility] [place] Diagnoses Severe persistent asthma without complication Procedures LUNG VOLUMES Analia Rivera PA-C [address] [place] [address] Respiratory Morning [place] [address] [place], [place] [id number] Referral ID Status Reason Start Date Expiration Date V isits Requested Visits Authorized [id number] Closed Auto-Generate d Referral 01/12/2023 02/11/2024 1 1 Reason Comments Asthma Follow Up Reason Onset Date Comments Refill Request 07/21/2023 Care Teams (unrecognized sec tion and content) Pest Control Chemical Technician Relationship Specialty Start Date End Date Davion Peoples MD [address] [place] [address] PCP - General Family Practice 05/09/12 Davion Peoples MD [address] [place] [address] Family Practice 05/09/12 Pest Control Chemical Technician Relationship Specialty Start Date End Date Davion Peoples MD [address] [place] [address] PCP - General Family Practice 05/09/12 Davion Peoples MD [address] [place] [address] Family Practice 05/09/12 Pest Control Chemical Technician Relationship Specialty Start Date End Date Davion Peoples MD [address] [place] [address] PCP - General Family Practice 05/09/12 Davion Peoples MD [address] [place] [address] Family Practice 05/09/12 Pest Control Chemical Technician Relationship Specialty Start Date End Date Davion Peoples MD [address] [place] [address] PCP - General Family Practice 05/09/12 Davion Peoples MD [address] [place] [address] Family Practice 05/09/12 Pest Control Chemical Technician Relationship Specialty Start Date End Date Davion Peoples MD [address] [place] [address] PCP - General Family Practice 05/09/12 Davion Peoples MD [address] [place] [address] Family Practice 05/09/12 Pest Control Chemical Technician Relationship Specialty Start Date End Date Davion Peoples MD [address] [place] [address] PCP - General Family Practice 05/09/12 Davion Peoples MD [address] [place] [address] Family Practice 05/09/12 Pest Control Chemical Technician Relationship Specialty Start Date End Date Davion Peoples MD [address] [place] [address] PCP - General Family Practice 05/09/12 Davion Peoples MD [address] [place] [address] Family Practice 05/09/12 Pest Control Chemical Technician Relationship Specialty Start Date End Date Davion Peoples MD [address] [place] [address] PCP - General Family Practice 05/09/12 Davion Peoples MD [address] [place] [address] Family Practice 05/09/12 Pest Control Chemical Technician Relationship Specialty Start Date End Date Davion Peoples MD [address] [place] [address] PCP - General Family Practice 05/09/12 Davion Peoples MD [address] [place] [address] Family Practice 05/09/12 Pest Control Chemical Technician Relationship Specialty Start Date End Date Davion Peoples MD [address] [place] [address] PCP - General Family Practice 05/09/12 Davion Peoples MD [address] [place] [address] Family Practice 05/09/12 Pest Control Chemical Technician Relationship Specialty Start Date End Date Davion Peoples MD [address] [place] [address] PCP - General Family Medicine 05/09/12 Davion Peoples MD [address] [address] Family Medicine 05/09/12 Pest Control Chemical Technician Relationship Specialty Start Date End Date Davion Peoples MD [address] [place] [address] PCP - General Family Medicine 05/09/12 Davion Peoples MD [address] [address] Family Medicine 05/09/12 P[employer] Chemical Technician Relationship Specialty Start Date End Date Davion Peoples MD [address] [address] PCP - General Family Medicine 05/09/12 Davion Peoples MD [address] [address] Family Medicine 05/09/12 P[employer] Control Chemical Technician Relationship Specialty Start Date End Date Davion Peoples MD [address] [place] [address] PCP - General Family Medicine 05/09/12 Davion Peoples MD [address] [place] [address] Family Medicine 05/09/12 P[employer] Control Chemical Technician Relationship Specialty Start Date End Date Davion Peoples MD [address] [place] [address] PCP - General Family Medicine 05/09/12 Davion Peoples MD [address] [place] [address] Family Medicine 05/09/12 Pest Control Chemical Technician Relationship Specialty Start Date End Date Davion Peoples MD [address] [place] [address] PCP - General Family Medicine 05/09/12 Davion Peoples MD [address] [place] [address] Family Medicine 05/09/12 Pest Control Chemical Technician Relationship Specialty Start Date End Date Davion Peoples MD [address] [place] [address] PCP - General Family Medicine 05/09/12 Davion Peoples MD [address] [place] [address] Family Medicine 05/09/12 Pest Control Chemical Technician Relationship Specialty Start Date End Date Davion Peoples MD [address] [place] [address] PCP - General Family Medicine 05/09/12 Davion Peoples MD [address] [place] [address] Family Medicine 05/09/12 Pest Control Chemical Technician Relationship Specialty Start Date End Date Davion Peoples MD [address] [place] [address] PCP - General Family Medicine 05/09/12 Davion Peoples MD [address] [place] [address] Family Medicine 05/09/12 Pest Control Chemical Technician Relationship Specialty Start Date End Date Davion Peoples MD [address] [place] [address] PCP - General Family Medicine 05/09/12 Davion Peoples MD [address] [place] [address] Family Medicine 05/09/12 Pest Control Chemical Technician Relationship Specialty Start Date End Date Davion Peoples MD [address] [place] [address] PCP - General Family Medicine 05/09/12 Davion Peoples MD [address] [place] [address] Family Medicine 05/09/12 Pest Control Chemical Technician Relationship Specialty Start Date End Date Davion Peoples MD [address] [place] [address] PCP - General Family Medicine 05/09/12 Davion Peoples MD [address] [place] [address] Family Medicine 05/09/12 Pest Control Chemical Technician Relationship Specialty Start Date End Date Davion Peoples MD [address] [place] [address] PCP - General Family Medicine 05/09/12 Davion Peoples MD [address] [place] [address] Family Medicine 05/09/12 Pest Control Chemical Technician Relationship Specialty Start Date End Date Davion Peoples MD [address] [place] [address] PCP - General Family Medicine 05/09/12 Davion Peoples MD [address] [place] [address] Family Medicine 05/09/12 Pest Control Chemical Technician Relationship Specialty Start Date End Date Davion Peoples MD [address] [place] [address] PCP - General Family Medicine 05/09/12 Davion Peoples MD [address] [place] [address] Family Medicine 05/09/12 Pest Control Chemical Technician Relationship Specialty Start Date End Date Davion Peoples MD [address] [place] [address] PCP - General Family Medicine 05/09/12 Davion Peoples MD [address] [place] [address] Family Medicine 05/09/12 Pest Control Chemical Technician Relationship Specialty Start Date End Date Davion Peoples MD [address] [place] [address] PCP - General Family Medicine 05/09/12 Davion Peoples MD [address] [place] [address] Family Medicine 05/09/12 Pest Control Chemical Technician Relationship Specialty Start Date End Date Davion Peoples MD [address] [place], [place] [address] PCP - General Family Medicine 05/09/12 Davion Peoples MD [address] [place], [place] [address] Family Medicine 05/09/12 Pest Control Chemical Technician Relationship Specialty Start Date End Date Davion Peoples MD [address] [place], [place] [id number] PCP - General [facility] Medicine 05/09/12 Davion Peoples MD [address] [place], [place] [address] Family Medicine 05/09/12 FOR RECORDS PERTAINING TO [...] BE BASED ON THE PRIMARY CLINICAL RECORDS. [email or web address]. provides no warranty or guarantee of the accuracy or completeness of information in this document.
--- OUTSIDE RECORDS SUMMARY | 2023-10-12 19:56 | XMS RPT_ITS | CCD ---
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 nodularity. 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 Did have [...] be CPAP compliant. RA (rheumatoid arthritis) ([facility]) 2014 Sinus arrhythmia 05/16/2013 Outside post 911 follow-up screening, 2012. Sinusitis Sjogren's disease ([facility]) Allergies: Bactrim [Sulfametho* Hives Erythromycin GI Upset, [...] ER (EFFEXOR XR) 150 mg 24 hr [id number] mg once daily.Disp: Rfl: fluticasone (FLONASE) 50 mcg/actuation nasal sprayUse 1 [place] in each nostril once daily.Disp: 1 BottleRfl: 5 losartan (COZAAR) 50 mg tabletTake 1 tablet by mouth once daily.Disp: Rfl: citalopram (CELEXA) 20 mg tabletTake 40 mg by mouth once daily. Disp: Rfl: QUEtiapine (SEROQUEL) 100 mg tabletTake 200 mg by mouth daily at bedtime. Disp: Rfl: amLODIPine 5 mg ORAL tabletTake 5 m (more content not included)... [facility] 01-03-2023 Miscellaneous Notes Patient scheduled by PSS. Celia Jenkins LPN documented in this encounter [facility] 12-23-2022 Note HNO ID: [id number] Author: Kandice Cornejo APRN.VALIDATION SCIENTIST Service: ? Author Type: Nurse Practitioner Type: Progress Notes Filed: 12/23/2022 12:44 PM Note Text: [facility] [place] Follow-up Visit Follow-up note December 23, 2022 [...] fine. States she recently ran out of [employer] and now having pain in fingers and toes. Has had tinnitus; worse since . Since vertigo in October states tinnitus has doubled and is constant. Still following with [facility] for her low back. Will be [...] be CPAP compliant. RA (rheumatoid arthritis) ([facility]) 2013 Sinus arrhythmia 05/16/2013 Outside post 05-02 follow-up screening, 2012. Sinusitis Sjogren's disease ([facility]) PAST SURGICAL HISTORY Procedure Laterality Date ANES [...] Ta (more content not included)... [facility] 12-23-2022 History of Presen t illness Narrative Images from the original note were not included. [facility] [place] Follow-up Visit Follow-up note December 23, 2022 [...] be CPAP compliant. RA (rheumatoid arthritis) ([facility]) 2013 Sinus arrhythmia 05/16/2013 Outside post 9-11 follow-up screening, 2012. Sinusitis Sjogren's disease ([facility]) PAST SURGICAL HISTORY Procedure Laterality Date ANES [...] (FLONASE) 50 mcg/actuation nasal spray Use 1 [place] in each nostril once daily. losartan (COZAAR) [...] gm/dL 0.00 SPE Staff Review Reviewed by Eirn Bell MD ([id number]) Protein, Urine Random 0 - 20 mg/dL 5 Albumin, Urine (Prot Electro) % 35.7 Alpha 1 Globulin, Urine % 4.3 Alpha 2 Globulin, Urine % 26.1 Beta Globulin, Urine % 22.4 Gamma Globulin, Urine % 11.5 Interpretation (Urine Electro) SEE COMMENT Staff Review (Urine Electro) Reviewed by Erin Bell MD ([id number]) Hemoglobin A1C 4.3 - 5.6 % 6.8 [...] Continue follow up with ENT. Kandice Cornejo APRN.VALIDATION SCIENTIST I spent a total of 45 minutes on the date of the service which included preparing to see the patient, [id number] patient care, completing clinical documentation, obtaining and/or reviewing separately obtained history, performing a medically appropriate examination, counseling and educating the patient/family/caregiver, and ordering medications, tests, or procedures. PDMP website checked and validated. All prescriptions have been APPROPRIATELY filled. No suspicious activity was identified. December 23, 2022 Kandice Cornejo APRN.VALIDATION SCIENTIST documented in this encounter [facility] 11-15-2022 Note HNO ID: [id number] Author: William Cabrera MD Service: ? Author [...] mail or electronic medical record. [facility] 11-15-2022 History of Presen t illness [...] electronic medical record. documented in this encounter [facility] 07-26-2022 Miscellaneous Notes Patient has been [...] Becky Diop MA documented in this encounter [facility] 07-12-2022 Miscellaneous Notes Faxed order signed by Dr. Hernandez for [facility]. Almaz Hull LPN documented in this encounter [facility] 05-31-2022 History of Presen t illness Narrative . [facility] [place] Note Patient name: Rajwinder Wylie PCP: Davion Peoples MD CC: follow-up chest CT HPI: Rajwinder Wylie 71 year old female former 10 pack year smoker with PMH significant for asthma, SANTHOSH on CPAP, RA, Sjogren's, HTN and pulmonary nodularity. 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 Did had [...] DATE OF EXAM: Mar 10 2022 1:13PM [facility] 0541 - CT CHEST WO IVCON [...] DATE OF EXAM: May 31 2022 2:31PM [facility] 0541 - CT CHEST WO IVCON [...] be CPAP compliant. RA (rheumatoid arthritis) ([facility]) 2013 Sinus arrhythmia 05/16/2013 Outside post 05-02 follow-up screening, 2012. Sinusitis Sjogren's disease ([facility]) ALLERGIES Allergen Reactions Bactrim [Sulfametho* Hives Erythromycin [...] fluticasone (FLONASE) 50 mcg/actuation nasal spray^Use 1 [place] in each nostril once daily.^Disp: 1 Bottle^Rfl: [...] development of bronchiectasis Hailey Hernandez MD [facility] [place] documented in this encounter [facility] 05-24-2022 Miscellaneous Notes Information faxed per pt request. Jesica Galo LPN Patient aware the Lyrica was escripted to the pharmacy. Patient requesting to have any recent health information faxed to the Company handling her care since . eJsica Galo LPN documented in this encounter [facility] 04-29-2022 Miscellaneous Notes FYI The patient had blood work done with her PCP's office. The patient is calling and having the lab results faxed to the [facility] office. Received a request from [employer] for a 90 day supply rx by [...] tablet by mouth once daily. Pharmacy Name: [facility] Phone #: [phone] Sheba Ackerman 01/07/22 Assessment/Plan: G62.9 Neuropathy (primary [...] BRAIN WO IVCON documented in this encounter [facility] 04-22-2022 History of Presen t illness Narrative [facility] [place], 04/22/2022: Name: Rajwinder Wylie : 1950 The [...] FEF75 (L/sec) 0.47 0.17 1.25 0.51 109 UFP38-33 (L/sec) 1.90 0.87 3.37 1.92 101 PEF [...] Analia Rivera PA-C documented in this encounter [facility] 04-22-2022 Nurse Note Intake information documented in the prior visit with ADI Murillo today. documented in this encounter [facility] 04-22-2022 History of Presen t illness Narrative PULM FUNCTION SMARTBLOCK: Provider: Analia Rivera PA-C Assisting Tech: ADI Murillo Spirometry: 1 documented in this encounter [facility] 04-16-2022 Miscellaneous Notes RX INSTRUCTIONS: Pharmacy initiated this request. No need to notify patient. Last OV: 01/07/22 with KD Last refill: 04/24/21 With 90 and 1 refills Follow up: No F/U scheduled at this time Esperanza Veliz MA documented in this encounter [facility] 03-15-2022 Miscellaneous Notes PDMP website checked and validated. All prescriptions have been APPROPRIATELY filled. No suspicious activity was identified. March 15, 2022 Kandice Cornejo APRN.VALIDATION SCIENTIST Patient has been identified by name and date of : Yes Pharmacy phones for refill(s): Pending Prescriptions Disp Refills PREGABALIN 100 MG CAPSULE 60 capsule 2 Sig: TAKE 1 CAPSULE BY MOUTH TWICE DAILY FOR 90 DAYS. YUN Class: C-V DINORA: Yes Date of last office visit in Neurology: RAMIRO 01/07/22 with KD Appointment scheduled 04/15/22 with [facility] Notes: Assessment/Plan: G62.9 Neuropathy (primary encounter diagnosis) [...] you. ZAHIRA Sotomayor documented in this encounter [facility] 03-12-2022 Miscellaneous Notes Spoke with Rajwinder [...] to be cautious. documented in this encounter [facility] 03-11-2022 Miscellaneous Notes Reschedule information given [...] when rib heals. documented in this encounter [facility] 03-10-2022 History of Presen t illness [...] 2022 2:07 PM documented in this encounter [facility] 01-22-2022 History of Presen t illness [...] 2022 1:07 PM documented in this encounter [facility] 01-07-2022 History of Presen t illness Narrative Images from the original note were not included. 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 5. Low back pain, unspecified [...] this could potentially contribute. Had COVID after [place]; was deployed to [place]. Having difficulty with speech following infection. Notes expressive aphasia. Feels like eyes are bulging out. Still taking Keppra 750mg. Wants records faxed to [facility] physicians. States Dr. Peoples recommended that she [...] be CPAP compliant. RA (rheumatoid arthritis) ([facility]) 2013 Sinus arrhythmia 05/16/2013 Outside post 05-02 [...] (FLONASE) 50 mcg/actuation nasal spray Use 1 [place] in each nostril once daily. losartan (COZAAR) [...] Staff Review Reviewed by Erin Bell MD ([id number]) Protein, Urine Random 0 - 20 mg/dL 5 Albumin, Urine (Prot Electro) % 35.7 Alpha 1 Globulin, Urine % 4.3 Alpha 2 Globulin, Urine % 26.1 Beta Globulin, Urine % 22.4 Gamma Globulin, Urine % 11.5 Interpretation (Urine Electro) SEE COMMENT Staff Review (Urine Electro) Reviewed by Erin Bell MD ([id number]) Hemoglobin A1C 4.3 - 5.6 % 6.8 [...] Sciatica of right side Comment: Following with [facility]. Continue Lyrica 100mg BID. Office Visit on 01/07/22 MRI BRAIN VENKAT Cornejo APRN.VALIDATION SCIENTIST I spent a total of 40 minutes on the date of the service which included preparing to see the patient, [id number]-kh-[id number] patient care, completing clinical documentation, obtaining and/or reviewing separately obtained history, performing a medically appropriate examination, counseling and educating the patient/family/caregiver and ordering medications, tests, or procedures. PDMP website checked and validated. All prescriptions have been APPROPRIATELY filled. No suspicious activity was identified. January 07, 2022 Kandice Cornejo APRN.JOANN documented in this encounter [facility] 12-30-2021 Miscellaneous Notes Annual visit to evaluate symptoms spirometry and surveillance CT Chest recommended at 02/2021 Pulmonary visit. Orders placed for spirometry and chest CT. Appointment with Anlaia Rivera PA-C or Hailey Hernandez MD in [place]. Will need orders placed. Celia Jenkins LPN Patient calling to schedule pulmonary CT scan and breahting test. States she keeps getting reminders from [facility] to do the testing. Almaz Hull LPN documented in this encounter [facility] 11-06-2021 History of Presen t illness [...] of both cervical and lumbar spine through [facility]. 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 Pt has also had 2 toes amputated since I last saw her (2nd toe on each foot). Numbness and tingling now resolved since on Lyrica 75mg BID - no side effects. Also on Keppra. Lumbar pain stable. Note compression fx going back to 5th grade. Pain no better. Still following with [facility]. Also having phantom pain where R [...] (FLONASE) 50 mcg/actuation nasal spray Use 1 [place] in each nostril once daily. losartan (COZAAR) [...] 0.15 % (205.5 mcg) spry Use 1 [place] in each nostril twice daily. HISTORIES PAST MEDICAL HISTORY Diagnosis Date Asthma First degree heart block 05/16/2013 Outside post 05-02 follow-up screening, 2012. Hypertension Hypertension 05/16/2013 Lyme disease Meniere disease Obesity 05/16/2013 SANTHOSH (obstructive sleep apnea) 05/16/2013 CPAP 11. Claims to be CPAP compliant. 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 5. Low back pain, unspecified back pain laterality, unspecified chronicity, unspecified whether sciatica present - ICD9: 724.2, ICD10: M54.50 Continue to follow with [facility]. Increasing Lyrica to 100mg BID as above. Jairo Gudino MD I spent 40+ minutes in the visit, with more than 50% of the total [id number] time of the visit in counseling / coordination of care. PDMP website checked and validated. All prescriptions have been APPROPRIATELY filled. No suspicious activity was identified. 11/06/2021 by Jairo Gudino MD documented in this encounter [facility] Severe persistent asthma without complication- Primary Lung nodules Other nonspecific abnormal finding of lung field [facility] Diagnosis Neuropathy- Primary Mononeuritis of [...] right side Sciatica [facility] Diagnosis Transient cerebral ischemia, unspecified type Aphasia Balance problems Other symptoms involving nervous and musculoskeletal systems [facility] Diagnosis Lung nodules Other nonspecific abnormal finding of lung field [facility] Diagnosis Neuropathy Mononeuritis of unspecified site RLS (restless legs syndrome) Restless legs syndrome (RLS) Nonintractable episodic headache, unspecified headache type SANTHOSH (obstructive sleep apnea) Obstructive sleep apnea (adult) (pediatric) Sciatica of right side Sciatica [facility] Diagnosis RLS (restless legs syndrome) Restless legs syndrome (RLS) Neuropathy Mononeuritis of unspecified site Nonintractable episodic headache, unspecified headache type [facility] Diagnosis Severe persistent asthma without complication- Primary [facility]* Diagnosis Severe persistent asthma without complication- Primary Lung nodules Other nonspecific abnormal finding of lung field SANTHOSH (obstructive sleep apnea) Obstructive sleep apnea (adult) (pediatric) Dyspnea and respiratory abnormalities Other dyspnea and respiratory abnormality [facility]* Diagnosis RLS (restless legs syndrome) Restless legs syndrome (RLS) Neuropathy Mononeuritis of unspecified site Nonintractable episodic headache, unspecified headache type [facility]* Diagnosis Lung nodules- Primary Other nonspecific abnormal finding of lung field Severe persistent asthma without complication COVID-19 long hauler Sjogren's syndrome, with unspecified organ involvement (HCC) documented [facility]* Diagnosis RLS (restless legs syndrome) Restless legs syndrome (RLS) Neuropathy Mononeuritis of unspecified site Nonintractable episodic headache, unspecified headache type [facility]* Diagnosis Tinnitus, left ear- Primary Vertigo Dizziness and giddiness documented in this encounter [facility] note* Diagnosis Neuropathy- Primary Mononeuritis of [...] Dizziness and giddiness [facility]* Diagnosis Dyspnea and respiratory abnormalities- Primary Other dyspnea and respiratory abnormality Acute bronchitis, unspecified organism Sinobronchitis Unspecified sinusitis (chronic) Severe persistent asthma without complication COVID-19 long hauler Sjogren's syndrome, with unspecified organ involvement (HCC) SANTHOSH (obstructive sleep apnea) Obstructive sleep apnea (adult) (pediatric) Lung nodule Solitary pulmonary nodule [facility] Diagnosis Acute bronchitis, unspecified organism Sinobronchitis Unspecified sinusitis (chronic) [facility] Diagnosis Severe persistent asthma without complication [facility] Diagnosis Neuropathy Mononeuritis of unspecified site RLS (restless legs syndrome) Restless legs syndrome (RLS) Nonintractable episodic headache, unspecified headache type SANTHOSH (obstructive sleep apnea) Obstructive sleep apnea (adult) (pediatric) Sciatica of right side Sciatica [facility] Diagnosis Dyspnea and respiratory abnormalities Other dyspnea and respiratory abnormality [facility] Diagnosis Acute left-sided low back pain with left-sided sciatica [facility] Diagnosis Lung nodules Other nonspecific abnormal finding of lung field [facility] Diagnosis Severe persistent asthma without complication [facility] Diagnosis Severe persistent asthma without complication [facility] Diagnosis Severe persistent asthma without complication- Primary Sjogren's syndrome, with unspecified organ involvement (HCC) Lung nodules Other nonspecific abnormal finding of lung field [facility] Diagnosis Neuropathy Mononeuritis of unspecified site RLS (restless legs syndrome) Restless legs syndrome (RLS) Nonintractable episodic headache, unspecified headache type [facility] Outpatient Procedure (Routine) - Waiting for Response Specialty Diagnoses / Procedures Referred By Contac t Referred To Contact [facility] Diagnoses SANTHOSH (obstructive sleep apnea) Dyspnea and respiratory abnormalities Procedures [facility] W/WOM-MODE COMPL SPEC&COLR D Analia Rivera PA-C [address] [address] [facility] [address] [place] [address] Referral ID Status Reason Start Date Expiration Date Visits Requested Visits Authorized [id number] Waiting for Response Auto-Generate d Referral Financial Clearance Required - [employer] Payor 04/22/2022 04/22/2023 1 1 * MRI/CT (Routine) - Authorized Specialty Diagnoses / Procedures Referred By Edy t Referred To Contact PULMON[facility]IC[facility] Diagnoses Lung nodules Procedures CT CHEST WO IVCON DIAGNOSTIC COMPUTED TOMOGRAPHY THORAX W/O Analia Reyna PA-C [address] [address] [facility] [address] [place] [address] Referral ID Status Reason Start Date Expiration Date Visits Requested Visits Authorized [id number] Authorized Auto-Generate d Referral Financial Clearance Required - [employer]ON [employer]or 2 08/21/2022 1 1 [facility] Summary Purpose Family History No Family [...] COMPUTED TOMOGRAPHY THORAX W/O Rodrigo Murphy MD [address] [place] [address] Ct Imaging Referral ID Status Reason Start Date Expiration Date Visits Requested Visits Authorized [id number] Pending Review Auto-Generat ed Referral 02/25/2022 01/29/2023 1 1 Specialty Diagnoses / Procedures Referred By Edy t Referred To Contact [facility] Diagnoses Severe persistent asthma without complication Procedures SPIROMETRY BASELINE ONLY SPMTRY W/VC EXPIRATORY HIPOLITO W/WO MXML VOL VNTJ Rodrigo Lamb MD [address] [place] [address] [facility] [place] [facility] [place] [address] Referral ID Status Reason Start Date Expiration Date Visits Requested Visits Authorized [id number] Pending Review Auto-Generat ed Referral 02/25/2022 01/29/2023 1 1 Specialty Diagnoses / Procedures Referred By Contac t Referred To Contact MR IMAGING Diagnoses Transient cerebral ischemia, unspecified type Aphasia Balance problems Procedures MRI BRAIN WO IVCON MRI BRAIN BRAIN STEM W/O CONTRAST MATERIAL Kandice Cornejo, RAEGAN.VALIDATION SCIENTIST [address] [place] [address] Mr Imaging Referral ID Status Reason Start Date Expiration Date Visits Requested Visits Authorized [id number] Authorized Auto-Generat ed Referral 01/07/2022 02/06/2023 1 1 Referral ID Status Reason Start Date Expiration Date V isits Requested Visits Authorized [id number] Closed Auto-Generate d Referral 01/07/2022 02/06/2023 1 1 Referral ID Status Reason Start Date Expiration Date V isits Requested Visits Authorized [id number] Closed Auto-Generate d Referral 02/25/2022 01/29/2023 1 1 Specialty Diagnoses / Procedures Referred By Contac t Referred To Contact Diagnoses Tinnitus, left ear Procedures HEARING TEST/AUDIOGRAM COMPRE AUDIOMETRY THRESHOLD EVAL William Concepcion MD [address] [address] [facility] [address] [place] [address] Referral ID Status Reason Start Date Expiration Date Visits Requested Visits Authorized [id number] Pending Review Auto-Generat ed Referral 11/15/2022 02/13/2023 1 1 Specialty Diagnoses / Procedures Referred By Contac t Referred To Contact Diagnoses Neuropathy RLS (restless legs syndrome) Nonintractable episodic headache, unspecified headache type SANTHOSH (obstructive sleep apnea) Sciatica of right side Kandice Cornejo, RAEGAN.VALIDATION SCIENTIST [address] [place] [address] Referral ID Status Reason Start Date Expiration Date V isits Requested Visits Authorized [id number] Pending Review 1 1 Specialty Diagnoses / Procedures Referred By Contac t Referred To Contact MR IMAGING Diagnoses Acute left-sided low back pain with left-sided sciatica Procedures MRI LUMBAR SPINE WO IVCON MRI SPINAL CANAL LUMBAR W/O CONTRAST MATERIAL Jairo Gudino Jr., MD [address] [place] [place] [address] [place] [id number] Referral ID Status Reason Start Date Expiration Date V isits Requested Visits Authorized [id number] Closed Auto-Generate d Referral 04/29/2023 05/28/2024 1 1 Additional Source Comments INFORMATION SOURCE (unrecogn ized section and content) DATE CREATED AUTHOR AUTHOR'S ORGANIZ ATION 02/14/2018 [facility] DATE CREATED AUTHOR AUTHOR'S ORGANIZ ATION 08/13/2020 [facility] DATE CREATED AUTHOR AUTHOR'S ORGANIZ ATION 05/08/2021 [facility] DATE CREATED AUTHOR AUTHOR'S ORGANIZ ATION 09/27/2023 [facility] Source Comments (unrecognize d section and content) In the event this informatio n is protected by the Federal Confidentiality of Alcohol and Drug Abuse Patient Records regulations: The Federal rules restrict any use of the information to criminally investigate or prosecute any alcohol or drug abuse patient.[facility] the event this information is protected by the Federal Confidentiality of Alcohol and Drug Abuse Patient Records regulations: The Federal rules restrict any use of the information to criminally investigate or prosecute any alcohol or drug abuse patient.[facility] the event this information is protected by the Federal Confidentiality of Alcohol and Drug Abuse Patient Records regulations: The Federal rules restrict any use of the information to criminally investigate or prosecute any alcohol or drug abuse patient.[facility] the event this information is protected by the Federal Confidentiality of Alcohol and Drug Abuse Patient Records regulations: The Federal rules restrict any use of the information to criminally investigate or prosecute any alcohol or drug abuse patient.[facility] the event this information is protected by the Federal Confidentiality of Alcohol and Drug Abuse Patient Records regulations: The Federal rules restrict any use of the information to criminally investigate or prosecute any alcohol or drug abuse patient.[facility] the event this information is protected [...] or prosecute any alcohol or drug abuse patient.[facility] the event this information is protected by the Federal Confidentiality of Alcohol and Drug Abuse Patient Records regulations: The Federal rules restrict any use of the information to criminally investigate or prosecute any alcohol or drug abuse patient.[facility] the event this information is protected by the Federal Confidentiality of Alcohol and Drug Abuse Patient Records regulations: The Federal rules restrict any use of the information to criminally investigate or prosecute any alcohol or drug abuse patient.[facility] the event this information is protected by the Federal Confidentiality of Alcohol and Drug Abuse Patient Records regulations: The Federal rules restrict any use of the information to criminally investigate or prosecute any alcohol or drug abuse patient.[facility] the event this information is protected by the Federal Confidentiality of Alcohol and Drug Abuse Patient Records regulations: The Federal rules restrict any use of the information to criminally investigate or prosecute any alcohol or drug abuse patient.[facility] the event this information is protected by the Federal Confidentiality of Alcohol and Drug Abuse Patient Records regulations: The Federal rules restrict any use of the information to criminally investigate or prosecute any alcohol or drug abuse patient.[facility] the event this information is protected by the Federal Confidentiality of Alcohol and Drug Abuse Patient Records regulations: The Federal rules restrict any use of the information to criminally investigate or prosecute any alcohol or drug abuse patient.[facility] the event this information is protected by the Federal Confidentiality of Alcohol and Drug Abuse Patient Records regulations: The Federal rules restrict any use of the information to criminally investigate or prosecute any alcohol or drug abuse patient.[facility] the event this information is protected by the Federal Confidentiality of Alcohol and Drug Abuse Patient Records regulations: The Federal rules restrict any use of the information to criminally investigate or prosecute any alcohol or drug abuse patient.[facility] the event this information is protected by the Federal Confidentiality of Alcohol and Drug Abuse Patient Records regulations: The Federal rules restrict any use of the information to criminally investigate or prosecute any alcohol or drug abuse patient.[facility] the event this information is protected by the Federal Confidentiality of Alcohol and Drug Abuse Patient Records regulations: The Federal rules restrict any use of the information to criminally investigate or prosecute any alcohol or drug abuse patient.[facility] the event this information is protected by the Federal Confidentiality of Alcohol and Drug Abuse Patient Records regulations: The Federal rules restrict any use of the information to criminally investigate or prosecute any alcohol or drug abuse patient.[facility] the event this information is protected by the Federal Confidentiality of Alcohol and Drug Abuse Patient Records regulations: The Federal rules restrict any use of the information to criminally investigate or prosecute any alcohol or drug abuse patient.[facility] the event this information is protected by the Federal Confidentiality of Alcohol and Drug Abuse Patient Records regulations: The Federal rules restrict any use of the information to criminally investigate or prosecute any alcohol or drug abuse patient.[facility] the event this information is protected by the Federal Confidentiality of Alcohol and Drug Abuse Patient Records regulations: The Federal rules restrict any use of the information to criminally investigate or prosecute any alcohol or drug abuse patient.[facility] the event this information is protected by the Federal Confidentiality of Alcohol and Drug Abuse Patient Records regulations: The Federal rules restrict any use of the information to criminally investigate or prosecute any alcohol or drug abuse patient.[facility] the event this information is protected by the Federal Confidentiality of Alcohol and Drug Abuse Patient Records regulations: The Federal rules restrict any use of the information to criminally investigate or prosecute any alcohol or drug abuse patient.[facility] the event this information is protected by the Federal Confidentiality of Alcohol and Drug Abuse Patient Records regulations: The Federal rules restrict any use of the information to criminally investigate or prosecute any alcohol or drug abuse patient.[facility] the event this information is protected by the Federal Confidentiality of Alcohol and Drug Abuse Patient Records regulations: The Federal rules restrict any use of the information to criminally investigate or prosecute any alcohol or drug abuse patient.[facility] the event this information is protected by the Federal Confidentiality of Alcohol and Drug Abuse Patient Records regulations: The Federal rules restrict any use of the information to criminally investigate or prosecute any alcohol or drug abuse patient.[facility]In the event this information is protected by the Federal Confidentiality of Alcohol and Drug Abuse Patient Records regulations: The Federal rules restrict any use of the information to criminally investigate or prosecute any alcohol or drug abuse patient.[facility]In the event this information is protected by the Federal Confidentiality of Alcohol and Drug Abuse Patient Records regulations: The Federal rules restrict any use of the information to criminally investigate or prosecute any alcohol or drug abuse patient.[facility]In the event this information is protected by the Federal Confidentiality of Alcohol and Drug Abuse Patient Records regulations: The Federal rules restrict any use of the information to criminally investigate or prosecute any alcohol or drug abuse patient.[facility]In the event this information is protected by the Federal Confidentiality of Alcohol and Drug Abuse Patient Records regulations: The Federal rules restrict any use of the information to criminally investigate or prosecute any alcohol or drug abuse patient.[facility]In the event this information is protected by the Federal Confidentiality of Alcohol and Drug Abuse Patient Records regulations: The Federal rules restrict any use of the information to criminally investigate or prosecute any alcohol or drug abuse patient.[facility]In the event this information is protected by the Federal Confidentiality of Alcohol and Drug Abuse Patient Records regulations: The Federal rules restrict any use of the information to criminally investigate or prosecute any alcohol or drug abuse patient.[facility]In the event this information is protected by the Federal Confidentiality of Alcohol and Drug Abuse Patient Records regulations: The Federal rules restrict any use of the information to criminally investigate or prosecute any alcohol or drug abuse patient.[facility]In the event this information is protected by the Federal Confidentiality of Alcohol and Drug Abuse Patient Records regulations: The Federal rules restrict any use of the information to criminally investigate or prosecute any alcohol or drug abuse patient.[facility]In the event this information is protected by the Federal Confidentiality of Alcohol and Drug Abuse Patient Records regulations: The Federal rules restrict any use of the information to criminally investigate or prosecute any alcohol or drug abuse patient.[facility]In the event this information is protected by the Federal Confidentiality of Alcohol and Drug Abuse Patient Records regulations: The Federal rules restrict any use of the information to criminally investigate or prosecute any alcohol or drug abuse patient.[facility] Reason for Visit (unrecogniz ed section and content) Specialty Diagnoses / Procedures Referred By Edy t Referred To Contact [facility] Diagnoses Severe persistent asthma without complication Procedures LUNG DIFFUSION CAPACITY (DLCO) DIFFUSING CAPACITY Analia Rivera PA-C [address] [place] [address] Respiratory [place] [address] [place] [address] Referral ID Status Reason Start Date Expiration Date V isits Requested Visits Authorized [id number] Closed Auto-Generate d Referral 01/12/2023 02/11/2024 1 1 Reason Comments Established NI Patient Follow up Reason Comments Appointment Reason Comments 2 month F/U Specialty Diagnoses / Procedures Referred By Contac t Referred To Contact MR IMAGING Diagnoses Transient cerebral ischemia, unspecified type Aphasia Balance problems Procedures MRI BRAIN WO IVCON MRI BRAIN BRAIN STEM W/O CONTRAST MATERIAL Kandice Cornejo, SOCIAL MEDIA DIRECTOR.VALIDATION SCIENTIST [address] [id number] Mr Imaging Referral ID Status Reason Start Date Expiration Date V isits Requested Visits Authorized [id number] Closed Auto-Generate d Referral 01/07/2022 02/06/2023 [address] Specialty Diagnoses / Procedures Referred By Contac t Referred To Contact CT IMAGING Diagnoses Lung nodules Procedures CT CHEST WO IVCON DIAGNOSTIC COMPUTED TOMOGRAPHY THORAX W/O CNTRST Rodrigo Lamb MD [id number] Imaging Referral ID Status Reason Start Date Expiration Date V isits Requested Visits Authorized [id number] Closed Auto-Generate d Referral 02/25/2022 01/29/2023 1 1 Reason Comments Patient Update Reason Comments Results Chest CT Reason Comments Refill Request Specialty Diagnoses / Procedures Referred By Contac t Referred To Contact PULMONARY MEDICINE Diagnoses Severe persistent asthma without complication Procedures SPIROMETRY BASELINE ONLY SPMTRY W/VC EXPIRATORY HIPOLITO W/WO MXML VOL VNTJ Analia Rivera, EFRAIN [address] [place] [address] Pulm [facility] [address] [place] [address] Referral ID Status Reason Start Date Expiration Date V isits Requested Visits Authorized [id number] Closed Auto-Generated Referral Financial Clearance Required - [employer] Pay[employer] 04/22/2022 08/21/2022 1 1 Reason Comments Established Patient yearly follow up Specialty Diagnoses / Procedures Referred By Contac t Referred To Contact Pulmonary and Critical Care Medicine / PULMONARY MEDICINE Diagnoses 1 YR F/U ASTHMA Procedures RI EST ASTHMA Rodrigo Lamb MD [address] [place] [address] Analia Rivera PA-C [address] [facility] [address] [place] [address] Referral ID Status Reason Start Date Expiration Date Visits Re quested Visits Authorized [id number] Closed 04/22/2022 08/21/2022 1 1 Reason Onset Date Comments Refill Request 04/29/2022 Reason Comments Patient Update Medication Question Patient called janine praveening Neurontin. Reason Comments Established Patient Asthma Specialty Diagnoses / Procedures Referred By Contac t Referred To Contact Pulmonary and Critical Care Medicine / PULMONARY MEDICINE Diagnoses follow up after ct Procedures RI EST ASTHMA Analia Rivera PA-C [address] [facility] [place] [address] Hailey Hernandez MD [address] [facility] [place] [address] Referral ID Status Reason Start Date Expiration Date Visits Re quested Visits Authorized [id number] Closed 05/31/2022 08/21/2022 1 1 Reason Comments Orders Reason Comments Sinus Problem Left side of head ge ts headaches and ear aches. Chronic sinus infections. Had 3 weeks of vertigo, just finished. Sx of last infection started 3 weeks ago. Can have colored nasal drainage. CT about 1 year ago. 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 [address] [place] [address] [facility] Referral ID Status Reason Start Date Expiration Date V isits Requested Visits Authorized [id number] Closed Auto-Generate d Referral 04/29/2023 05/28/2024 [address] Specialty Diagnoses / Procedures Referred By Contac t Referred To Contact CT IMAGING Diagnoses Lung nodules Procedures CT CHEST WO IVCON DIAGNOSTIC COMPUTED TOMOGRAPHY THORAX W/O CNTRST Analia Rivera PA-C [address] [place] [address] [facility] Referral ID Status Reason Start Date Expiration Date V isits Requested Visits Authorized [id number] Closed Auto-Generate d Referral 05/22/2023 02/11/2024 1 1 Specialty Diagnoses / Procedures Referred By Contac t Referred To [facility]ORY [place] Diagnoses Severe persistent asthma without complication Procedures SPIROMETRY BASELINE ONLY SPMTRY W/VC EXPIRATORY HIPOLITO W/WO MXML VOL VNTJ Analia Rivera PA-C [address] [place] [address] Res[facility] [place] [address] [place] [address] Referral ID Status Reason Start Date Expiration Date V isits Requested Visits Authorized [id number] Closed Auto-Generate d Referral 01/12/2023 02/11/2024 1 1 Specialty Diagnoses / Procedures [facility] [place] Diagnoses Severe persistent asthma without complication Procedures LUNG VOLUMES Analia Rivera PA-C [address] [place] [address] Respiratory [place] [address] [place], [place] [id number] Referral ID Status Reason Start Date Expiration Date V isits Requested Visits Authorized [id number] Closed Auto-Generate d Referral 01/12/2023 02/11/2024 1 1 Reason Comments Asthma Follow Up Reason Onset Date Comments Refill Request 07/21/2023 Care Teams (unrecognized sec tion and content) Renal Dialysis Technician Relationship Specialty Start Date End Date Davion Peoples MD [address] [place] [address] PCP - General Family Practice 05/09/12 Davion Peoples MD [address] [place] [address] Family Practice 05/09/12 Renal Dialysis Technician Relationship Specialty Start Date End Date Davion Peoples MD [address] [place] [address] PCP - General Family Practice 05/09/12 Davion Peoples MD [address] [place] [address] Family Practice 05/09/12 Renal Dialysis Technician Relationship Specialty Start Date End Date Davion Peoples MD [address] [place] [address] PCP - General Family Practice 05/09/12 Davion Peoples MD [address] [place] [address] Family Practice 05/09/12 Renal Dialysis Technician Relationship Specialty Start Date End Date Dvaion Peoples MD [address] [place] [address] PCP - General Family Practice 05/09/12 Davion Peoples MD [address] [place] [address] Family Practice 05/09/12 Renal Dialysis Technician Relationship Specialty Start Date End Date Davion Peoples MD [address] [place] [address] PCP - General Family Practice 05/09/12 Davion Peoples MD [address] [place] [address] Family Practice 05/09/12 Renal Dialysis Technician Relationship Specialty Start Date End Date Davion Peoples MD [address] [place] [address] PCP - General Family Practice 05/09/12 Davion Peoples MD [address] [place] [address] Family Practice 05/09/12 Renal Dialysis Technician Relationship Specialty Start Date End Date Davion Peoples MD [address] [place] [address] PCP - General Family Practice 05/09/12 Davion Peoples MD [address] [place] [address] Family Practice 05/09/12 Renal Dialysis Technician Relationship Specialty Start Date End Date Davion Peoples MD [address] [place] [address] PCP - General Family Practice 05/09/12 Davion Peoples MD [address] [place] [address] Family Practice 05/09/12 Renal Dialysis Technician Relationship Specialty Start Date End Date Davion Peoples MD [address] [place] [address] PCP - General Family Practice 05/09/12 Davion Peoples MD [address] [place] [address] Family Practice 05/09/12 Renal Dialysis Technician Relationship Specialty Start Date End Date Davion Peoples MD [address] [place] [address] PCP - General Family Practice 05/09/12 Davion Peoples MD [address] [place] [address] Family Practice 05/09/12 Renal Dialysis Technician Relationship Specialty Start Date End Date Davion Peoples MD [address] [place] [address] PCP - General Family Medicine 05/09/12 Davion Peoples MD [address] [facility] [address] Family Medicine 05/09/12 Renal Dialysis Technician Relationship Specialty Start Date End Date Davion Peoples MD [address] [place] [address] PCP - General Family Medicine 05/09/12 Davion Peoples MD [address] [facility] [place] [address] Family Medicine 05/09/12 Renal Dialysis Technician Relationship Specialty Start Date End Date Davion Peoples MD [address] [facility] [place] [address] PCP - General Family Medicine 05/09/12 Davion Peoples MD [address] [facility] [place] [address] Family Medicine 05/09/12 Renal Dialysis Technician Relationship Specialty Start Date End Date Davion Peoples MD [address] [place] [address] PCP - General Family Medicine 05/09/12 Davion Peoples MD [address] [place] [address] Family Medicine 05/09/12 Renal Dialysis Technician Relationship Specialty Start Date End Date Davion Peoples MD [address] [place] [address] PCP - General Family Medicine 05/09/12 Davion Peoples MD [address] [place] [address] Family Medicine 05/09/12 Renal Dialysis Technician Relationship Specialty Start Date End Date Davion Peoples MD [address] [place] [address] PCP - General Family Medicine 05/09/12 Davion Peoples MD [address] [place] [address] Family Medicine 05/09/12 Renal Dialysis Technician Relationship Specialty Start Date End Date Davion Peoples MD [address] [place] [address] PCP - General Family Medicine 05/09/12 Davion Peoples MD [address] [place] [address] Family Medicine 05/09/12 Renal Dialysis Technician Relationship Specialty Start Date End Date Davion Peoples MD [address] [place] [address] PCP - General Family Medicine 05/09/12 Davion Peoples MD [address] [place] [address] Family Medicine 05/09/12 Renal Dialysis Technician Relationship Specialty Start Date End Date Davion Peoples MD [address] [place] [address] PCP - General Family Medicine 05/09/12 Davion Peoples MD [address] [place] [address] Family Medicine 05/09/12 Renal Dialysis Technician Relationship Specialty Start Date End Date Davion Peoples MD [address] [place] [address] PCP - General Family Medicine 05/09/12 Davion Peoples MD [address] [place] [address] Family Medicine 05/09/12 Renal Dialysis Technician Relationship Specialty Start Date End Date Davion Peoples MD [address] [place] [address] PCP - General Family Medicine 05/09/12 Davion Peoples MD [address] [place] [address] Family Medicine 05/09/12 Renal Dialysis Technician Relationship Specialty Start Date End Date Davion Peoples MD [address] [place] [address] PCP - General Family Medicine 05/09/12 Davion Peoples MD [address] [place] [address] Family Medicine 05/09/12 Renal Dialysis Technician Relationship Specialty Start Date End Date Davion Peoples MD [address] [place] [address] PCP - General Family Medicine 05/09/12 Davion Peoples MD [address] [place] [address] Family Medicine 05/09/12 Renal Dialysis Technician Relationship Specialty Start Date End Date Davion Peoples MD [address] [place] [address] PCP - General Family Medicine 05/09/12 Davion Peoples MD [address] [place] [address] Family Medicine 05/09/12 Renal Dialysis Technician Relationship Specialty Start Date End Date Davion Peoples MD [address] [place] [address] PCP - General Family Medicine 05/09/12 Davion Peoples MD [address] [place] [address] Family Medicine 05/09/12 Renal Dialysis Technician Relationship Specialty Start Date End Date Davion Peoples MD [address] [place] [address] PCP - General Family Medicine 05/09/12 Davion Peoples MD [address] [place] [address] Family Medicine 05/09/12 Renal Dialysis Technician Relationship Specialty Start Date End Date Davion Peoples MD [address] [place] [address] PCP - General Family Medicine 05/09/12 Davion Peoples MD [address] [place] [address] Family Medicine 05/09/12 Renal Dialysis Technician Relationship Specialty Start Date End Date Davion Peoples MD [address] [place], [place] [address] PCP - General Family Medicine 05/09/12 Davion Peoples MD [address] [place], [place] [address] Family Medicine 05/09/12 Renal Dialysis Technician Relationship Specialty Start Date End Date Davion Peoples MD [address] [place], [place] [id number] PCP - General [facility] Medicine 05/09/12 Davion Peoples MD [address] [place], [place] [address] Family Medicine 05/09/12 FOR RECORDS PERTAINING TO [...] BE BASED ON THE PRIMARY CLINICAL RECORDS. [facility]. provides no warranty or guarantee of the accuracy or completeness of information in this document.
[2023-10-12] MEDS: Lactated Ringers 1,000 ML 200 ML IV (20:35)
[2023-10-12] MEDS: Ipratropium/Albuterol Sulfate 3 ML AMPUL.NEB INHALATION (20:55)
[2023-10-12] MEDS: Budesonide Respules 0.5 MG/2 ML AMPUL.NEB. INHALATION (20:55)
[2023-10-12] MEDS: levETIRAcetam 750 MG Tablet 375 MG PO (21:59)
[2023-10-12] MEDS: Montelukast 10 MG Tablet PO (22:00)
[2023-10-12] MEDS: Citalopram 40 MG TABLET PO (22:00)
[2023-10-12] MEDS: ALPRAZolam 0.5 MG Tablet PO (22:00)
[2023-10-12] MEDS: Insulin Lispro 100 UNIT/ML INSULN.PEN SC (22:00)
[2023-10-12] MEDS: Potassium Chloride 10mEq/100mL 10 MEQ/100 ML IV.SOLN. 100 MEQ IV BOLUS (22:09)
[2023-10-12 23:17] LABS: Bedside Glucose 219 mg/dL (74-106)
[2023-10-12 23:21] LABS: ALB/GLOB Ratio 0.5 RATIO (0.9-2.4); AST(SGOT) 48 U/L (15-37); Alanine Aminotransfer ALT/SGPT 25 U/L (13-56); Albumin, Serum 2.3 g/dL (3.2-5.0); Alkaline Phosphatase 131 U/L (45-117); Anion Gap 8 (5-15); BUN 125 mg/dL (7-18); BUN/Creat Ratio 49.8 RATIO (10-20); Calcium,Total 9.3 mg/dL (8.5-10.1); Chloride 122 mmol/L (98-107); Creatinine, Serum 2.51 mg/dL (0.55-1.02); EST Glomerular Filtration Rate 20 mL/min (>60); Est Glom Filt Rate - Afr Amer 24 mL/min (>60); Estimated Creatinine Clearance 21.09 ml/min; Globulin 4.3 g/dL (2.2-4.2); Glucose 266 mg/dL (74-106); Protein, Total 6.6 g/dL (6.4-8.2); Sodium Level 151 mmol/L (136-145)
[2023-10-13] VITALS (10 sets, daily range): BP systolic 109–147; BP diastolic 51–74; PULSE 99–115; RESP 18–22; TEMP 36.3–37.3; O2SAT 94–98
[2023-10-13] MEDS: Lactated Ringers 1,000 ML 200 ML IV ×3 (00:56→11:04)
[2023-10-13] MEDS: Insulin Lispro 100 UNIT/ML INSULN.PEN SC ×3 (06:30→20:28)
[2023-10-13] MEDS: Budesonide Respules 0.5 MG/2 ML AMPUL.NEB. INHALATION ×2 (06:39→19:25)
[2023-10-13] MEDS: Ipratropium/Albuterol Sulfate 3 ML AMPUL.NEB INHALATION ×3 (06:39→19:25)
[2023-10-13 06:52] LABS: Bedside Glucose 239 mg/dL (74-106)
[2023-10-13 07:39] LABS: Absolute Lymphocyte Count 0.54 X10^3/uL (0.83-4.51); Absolute Neutrophil Count 12.9 X10^3/uL (2.0-7.7); Basophil# 0.02 X10^3/uL; Basophil% 0.1 % (0-1); Eosinophil# 0.06 X10^3/uL; Eosinophils% 0.4 % (0-5); Hematocrit 40.5 % (37-47); Hemoglobin 12.5 g/dL (12.0-15.0); Lymphocyte # 0.54 X10^3/ul (0.83-4.51); Lymphocyte % 3.5 % (19-41); Mean Corp Hgb Conc 30.9 g/dL (32-36); Mean Platelet Vol. 11.3 fl (6.2-12.0); Monocyte# 1.77 X10^3/uL; Monocyte% 11.5 % (0-10); NRBC Flagged by Analyzer 0.1 % (0-5); Neutrophil # 12.87 X10^3/uL (2.7-7.7); Neutrophil % 83.8 % (47-70); POSITIVE DIFFERENTIAL YES; Platelet Count 263 K/mm3 (150-450); RBC Distribution Width CV 17.5 % (11.6-14.6); RBC Distribution Width SD 51.1 fl (35.1-43.9); White Blood Count 15.4 K/mm3 (4.4-11.0)
[2023-10-13 07:41] LABS: Differential Indicated SCAN CRITERIA MET
[2023-10-13 08:06] LABS: Differential Comment SCANNED
[2023-10-13 08:18] LABS: ALB/GLOB Ratio 0.5 RATIO (0.9-2.4); AST(SGOT) 51 U/L (15-37); Alanine Aminotransfer ALT/SGPT 24 U/L (13-56); Albumin, Serum 2.1 g/dL (3.2-5.0); Alkaline Phosphatase 135 U/L (45-117); Anion Gap 6 (5-15); BUN 112 mg/dL (7-18); BUN/Creat Ratio 51.1 RATIO (10-20); Calcium,Total 9.2 mg/dL (8.5-10.1); Chloride 124 mmol/L (98-107); Creatinine, Serum 2.19 mg/dL (0.55-1.02); EST Glomerular Filtration Rate 23 mL/min (>60); Est Glom Filt Rate - Afr Amer 28 mL/min (>60); Estimated Creatinine Clearance 24.17 ml/min; Globulin 4.1 g/dL (2.2-4.2); Glucose 264 mg/dL (74-106); Magnesium 3.5 mg/dL (1.6-2.6); Potassium 3.1 mmol/L (3.5-5.1); Protein, Total 6.2 g/dL (6.4-8.2); Sodium Level 152 mmol/L (136-145)
[2023-10-13] MEDS: 0.9% Saline Lock 10 ML Syringe IV ×2 (09:18→17:35)
--- NOTE | 2023-10-13 09:56 | CASEMGMT ---
BROWN GUZMAN Assessment Face to Face with patient for initial transition planning/care coordination assessment. BROWN GUZMAN introduced self and role at [facility], pt voices understanding. Pt is A&Ox3 and is resting comfortably in bed and is calm. Care providers, pharmacy, and demographics verified. Admitting dx: Proximal Humerus Fx, YOON PCP: [facility] Specialists: Denies Preferred Pharmacy: [facility] Insurance: MCR A B, AARP Prescription Benefit: Yes LNOK: Sheba Hamilton (Friend), Han Richards (FO) Living Arrangements: Pt states that she lives alone in a single story home with a BM and flat entrance. ADLs/IADLs: Pt states that she is requiring more help with ADLs. Transportation: Pt states that she drives. Pt friend Sheba drives. DME: Pt states that she is a diabetic and that she has a BGM at home and enough supplies to check her BS. Pt also reports that she has a walker, cane, and GB in her shower. HHC/SNF: Denies history Plan: Pt 6-Click is 12. PT/OT eval pending. Pt states that she would be willing to go to a SNF for further rehab at this time. CM and SW to follow. Rodney Garcia RN, CM
--- NOTE | 2023-10-13 11:04 | EKG12_ITS ---
Test Reason : Blood Pressure : / mmHG Vent. Rate : 118 BPM Atrial Rate : 118 BPM P-R Int : 256 ms QRS Dur : 092 ms QT Int : 378 ms P-R-T Axes : 000 -09 073 degrees QTc Int : 529 ms Sinus tachycardia with 1st degree A-V block with Premature atrial complexes Septal infarct , age undetermined Prolonged QT Abnormal ECG When compared with ECG of 12-OCT-2023 14:01, MANUAL COMPARISON REQUIRED, DATA IS UNCONFIRMED Confirmed by HAI DYE, MARGIE ([id number]), book or script editor TAL LEMUS ([id number]) on 10/14/2023 1:11:10 PM Referred By: RUBI Confirmed By:MARGIE VALLES MD
[2023-10-13 11:30] LABS: Bedside Glucose 237 mg/dL (74-106)
--- NOTE | 2023-10-13 15:01 | PN_ITS ---
Subjective Subjective Patient seen and examined. She was restless and in pain. She had episode of confusion. Unable to do review of systems. She is on 2L of oxygen. Objective Data Objective Data Vital Signs: Vital Signs Temp Pulse Resp BP Pulse Ox O2 Del Method O2 Flow Rate 99.1 F 115 H 20 H 109/60 96 Nasal Cannula 2 10/13/23 14:07 10/13/23 14:07 10/13/23 14:07 10/13/23 14:07 10/13/23 14:07 10/13/23 14:18 10/13/23 14:18 Oxygen Flow Rate (L/min) 2 Oxygen Delivery Method Nasal Cannula Weight: 182 lb 8.684 oz Body Mass Index (BMI) 31.3 Intake & Output: Intake and Output for Last 24 Hours 10/11/23 10/12/23 10/13/23 23:59 23:59 23:59 Intake Total 2100 / 2100 3013.34 / 3013.34 Output Total 700 / 700 1250 / 1250 Balance 1400 / 1400 1763.34 / 1763.34 Lab / Micro Data 10/13/23 06:35 10/13/23 06:35 Labs: Laboratory Results - last 24 hr 10/12/23 14:45: PT 22.4 H, INR 1.9, APTT 32.8, Sodium 150 H, Potassium 3.5, Chloride 117 H, Carbon Dioxide 22.0, Anion Gap 11, BUN 137 H*, Creatinine 3.05 H , Estim Creat Clear Calc 18.22, Est GFR (MDRD) Af Amer 19 L, Est GFR (MDRD) Non- Af 16 L, BUN/Creatinine Ratio 44.9 H, Glucose 319 H, Lactic Acid 3.4 H*, Calcium 10.4 H, Magnesium 4.1 H, Total Bilirubin 0.80, AST 52 H, ALT 29, Alkaline Phosphatase 156 H, Total Creatine Kinase 981 H, Troponin I High Sens 60 H, Total Protein 7.9, Albumin 2.6 L, Globulin 5.3 H, Albumin/Globulin Ratio 0.5 L 10/12/23 16:05: Urine Color Yellow, Urine Clarity Clear, Urine pH 5.0, Ur Specific [place] 1.020, Urine Protein 15 H, Urine Glucose (UA) 100 H, Urine Ketones 5 H, Urine Occult Blood 10 H, Urine Nitrite Negative, Urine Bilirubin 1 H, Urine Urobilinogen Normal, Ur Leukocyte Esterase 25 H, Urine RBC 0-5 SEEN, Urine WBC 0 SEEN, Ur Squamous Epith Cells 0-5 SEEN, Urine Bacteria 0 SEEN, Urine Mucus 0 SEEN 10/12/23 18:43: Sodium 151 H, Potassium 3.3 L, Chloride 122 H, Carbon Dioxide 21.0, Anion Gap 8, BUN 132 H*, Creatinine 2.67 H, Estim Creat Clear Calc 20.82, Est GFR (MDRD) Af Amer 23 L, Est GFR (MDRD) Non-Af 19 L, BUN/Creatinine Ratio 49.4 H, Glucose 294 H, Lactic Acid 2.0, Calcium 9.7, Total Bilirubin 0.70, AST 54 H, ALT 26, Alkaline Phosphatase 138 H, Total Protein 6.9, Albumin 2.4 L, Globulin 4.5 H, Albumin/Globulin Ratio 0.5 L 10/12/23 21:56: POC Glucose 219 H 10/12/23 22:39: Sodium 151 H, Potassium 3.0 L, Chloride 122 H, Carbon Dioxide 21.0, Anion Gap 8, BUN 125 H*, Creatinine 2.51 H, Estim Creat Clear Calc 21.09, Est GFR (MDRD) Af Amer 24 L, Est GFR (MDRD) Non-Af 20 L, BUN/Creatinine Ratio 49.8 H, Glucose 266 H, Calcium 9.3, Total Bilirubin 0.70, AST 48 H, ALT 25, Alkaline Phosphatase 131 H, Total Protein 6.6, Albumin 2.3 L, Globulin 4.3 H, Albumin/Globulin Ratio 0.5 L 10/13/23 06:29: POC Glucose 239 H 10/13/23 06:35: WBC 15.4 H, RBC 5.00, Hgb 12.5, Hct 40.5, MCV 81.0, MCH 25.0 L, MCHC 30.9 L, RDW Std Deviation 51.1 H, RDW Coeff of Anali 17.5 H, Plt Count 263, MPV 11.3, Immature Gran % (Auto) 0.700, Neut % (Auto) 83.8 H, Lymph % (Auto) 3.5 L, Dare % (Auto) 11.5 H, Eos % (Auto) 0.4, Baso % (Auto) 0.1, Absolute Neuts (auto) 12.9 H, Absolute Lymphs (auto) 0.54 L, Nucleated RBC % 0.1, Differential Comment SCANNED, Diff Path Review December foll, Sodium 152 H, Potassium 3.1 L, Chloride 124 H, Carbon Dioxide 22.0, Anion Gap 6, BUN 112 H*, Creatinine 2.19 H, Estim Creat Clear Calc 24.17, Est GFR (MDRD) Af Amer 28 L, Est GFR (MDRD) Non-Af 23 L, BUN/Creatinine Ratio 51.1 H, Glucose 264 H, Calcium 9.2, Magnesium 3.5 H, Total Bilirubin 0.60, AST 51 H, ALT 24, Alkaline Phosphatase 135 H, Total Protein 6.2 L, Albumin 2.1 L, Globulin 4.1, Albumin/Globulin Ratio 0.5 L 10/13/23 11:07: POC Glucose 237 H Micro: Microbiology 10/12/23 16:05 Urine Catheter - Marcus Urine Culture - Preliminary GNR lactose cyberathlete Physical Exam Const alert Orientation / Consciousness: confused and lethargic HEENT normocephalic and head/scalp atraumatic Neck no lymphadenopathy and supple Lymph Lymphatic: no lymphadenopathy noted and no lymphedema noted Resp Resp Narrative: mildly diminished breath sounds bibasally, no wheezes or crackles. On 2L of oxygen. Cardio regular rate, regular rhythm, S1 normal heart sound, S2 normal heart sound and no murmurs GI normal to inspection, nondistended, normoactive bowel sounds, soft to palpation and non-tender Extremity Extremity Narrative: RUE in sling. Skin Skin Narrative: extensive bruising over right shoulder and RUE. Neuro Neuro Narrative: restless, lethargic. Moving upper and lower extremities spontaneously, except the RUE Motor Exam: general weakness Psych Psych Narrative: confused Activity / Motor Behavior: restless Assessment & Plan Assessment/Plan (1) Rhabdomyolysis: (2) Fracture of proximal end of right humerus: (3) Fall: PLAN: Plan #RUE proximal humeral fracture due to mechanical fall * Right upper extremity currently in a sling. * Per orthopedics this is conservative management for now. PT OT on board. * On p.o. Tylenol, p.o. oxycodone and IV morphine as needed for pain. * For precautions. #YOON: Hydrate gently with IV fluids. CPK was also elevated and this likely prerenal due to mechanical fall. Will trend creatinine. Cr is down to 2.19. #Hyponatremia: Sodium is up to 152. This is likely due to IV fluid hydration. Will DC normal saline and started on D5 water. #Hypokalemia: Potassium is 3.1. Replace and trend. #History of CAD: S/p stenting 2022. On aspirin and Plavix. Statin was held due to elevated CPK. #Rhabdomyolysis: CPK was 91 on admission. Likely due to mechanical fall. Should improve with hydration. #Elevated lactic acid: Most likely due to YOON and dehydration. Did have eleva martin white cell count but no clear evidence of infection. Will monitor. #SANTHOSH: On BiPAP nightly. #Type 2 diabetes mellitus: On insulin sliding scale. Tactics ACHS. #Seizure disorder: * On Keppra. Patient was noted to have bitten her tongue at the time that she had a fall. It is unclear whether she had a seizure or not then. * Will monitor if she has any symptoms like a seizure, will request neuroconsult to evaluate current dose of meds. * #History of asthma: Breathing treatments bronchodilators. #Rheumatoid arthritis: On leflunomide which is currently on hold on account of YOON. # Hypertension: Blood pressure was very low so BP meds held. #Mood disorder: On citalopram. Was also on Xanax and dose was decreased on admission. Was also on Effexor which is currently held. DVT prophylaxis: SCDs. Charges/Coding Visit Charges Inpatient E&M: 44067 Subs Hosp L3
--- NOTE | 2023-10-13 15:13 | CASEMGMT ---
SW met with patient. Introduced self and role at [facility]. SW let patient know that per therapy it is likely she will need to go to a correction. Patient was in agreement with this. Patient's tongue is swollen and it is hard for her to talk at this time. SW let patient know SW will check back with her tomorrow and bring her a list of long-term facilities. Patient then said she had to use the bathroom. SW hit patient's call light for her. Brigette BYRNE
[2023-10-13] MEDS: Dextrose 5%-Water (1000mL Bag) 1,000 ML 125 ML IV ×2 (15:32→23:33)
[2023-10-13] MEDS: Potassium Chloride 10mEq/100mL 10 MEQ/100 ML IV.SOLN. 100 MEQ IV BOLUS ×4 (15:34→18:41)
[2023-10-13 16:29] LABS: Bedside Glucose 284 mg/dL (74-106)
--- NOTE | 2023-10-13 16:54 | NURSING ---
Report given to BROWN Mills at this time.
[2023-10-13] MEDS: HYDROmorphone Inj 0.2 MG/ML SYRINGE 0.200000000000000011 MG IV (17:34)
[2023-10-13 20:48] LABS: Bedside Glucose 279 mg/dL (74-106)
[2023-10-13] MEDS: NORMAL SALINE 0.9% IV (21:58)
[2023-10-13] MEDS: LEVETIRACETAM IV (21:58)
[2023-10-14] VITALS (8 sets, daily range): BP systolic 131–147; BP diastolic 66–92; PULSE 79–108; RESP 18–20; TEMP 36.6; O2SAT 92–97; BMI 31.3
[2023-10-14 05:50] LABS: Absolute Neutrophil Count 13.2 X10^3/uL (2.0-7.7); Basophil# 0.05 X10^3/uL; Basophil% 0.3 % (0-1); Eosinophils% 1.8 % (0-5); Hematocrit 37.8 % (37-47); Hemoglobin 11.5 g/dL (12.0-15.0); Lymphocyte % 5.5 % (19-41); Mean Corp Hgb Conc 30.4 g/dL (32-36); Mean Corpuscular Hgb 24.7 pg (27.0-32.0); Mean Corpuscular Volume 81.1 fL (81-99); Mean Platelet Vol. 11.7 fl (6.2-12.0); Monocyte# 1.67 X10^3/uL; Monocyte% 10.3 % (0-10); NRBC Flagged by Analyzer 0 % (0-5); Neutrophil # 13.22 X10^3/uL (2.7-7.7); Neutrophil % 81.5 % (47-70); POSITIVE DIFFERENTIAL YES; Platelet Count 217 K/mm3 (150-450); RBC Distribution Width CV 17.3 % (11.6-14.6); RBC Distribution Width SD 50.3 fl (35.1-43.9); Red Blood Count 4.66 M/mm3 (4.2-5.4); White Blood Count 16.2 K/mm3 (4.4-11.0)
[2023-10-14] MEDS: Insulin Lispro 100 UNIT/ML INSULN.PEN SC ×4 (06:09→22:08)
[2023-10-14 06:15] LABS: Anion Gap 4 (5-15); BUN 72 mg/dL (7-18); BUN/Creat Ratio 41.6 RATIO (10-20); Calcium,Total 8.8 mg/dL (8.5-10.1); Chloride 125 mmol/L (98-107); Creatinine, Serum 1.73 mg/dL (0.55-1.02); EST Glomerular Filtration Rate 31 mL/min (>60); Est Glom Filt Rate - Afr Amer 37 mL/min (>60); Glucose 388 mg/dL (74-106); Potassium 3.3 mmol/L (3.5-5.1); Sodium Level 152 mmol/L (136-145)
[2023-10-14 06:57] LABS: Differential Indicated SCAN CRITERIA MET
[2023-10-14 07:04] LABS: Bedside Glucose 365 mg/dL (74-106)
[2023-10-14 07:04] LABS: Bedside Glucose 414 mg/dL (74-106)
[2023-10-14] MEDS: Budesonide Respules 0.5 MG/2 ML AMPUL.NEB. INHALATION ×2 (07:16→20:24)
[2023-10-14] MEDS: Ipratropium/Albuterol Sulfate 3 ML AMPUL.NEB INHALATION ×3 (07:16→20:24)
[2023-10-14 07:56] LABS: Differential Comment SCANNED
[2023-10-14] MEDS: Dextrose 5%-Water (1000mL Bag) 1,000 ML 150 ML IV ×4 (08:17→22:24)
[2023-10-14 09:16] LABS: Pathologist Review Reviewed
[2023-10-14] MEDS: NORMAL SALINE 0.9% IV ×2 (09:40→19:54)
[2023-10-14] MEDS: LEVETIRACETAM IV ×2 (09:40→19:54)
--- NOTE | 2023-10-14 10:57 | CASEMGMT ---
SW attempted to meet with patient again to discuss d/c plan. Patient was sleeping but did open her eyes when SW knocked on her door. SW re-introduced self and role at [facility]. SW provided patient with a list of care home facility providers including quality and resource use data and consistent with patient?s preferred geographic region, medical needs, and insurance network were provided from the [employer] Guide. Patient kept dozing off while SW was trying to talk. SW asked if patient wanted SW to call a friend to help with the decision. Patient tried to say something and then she fell asleep again. SW left the list in the room and SW will check back with patient again. Plan: Likely SNF, but need to get patient's input. Brigette Martinez [employer] NURS[employer] SPECIALIST CATY
[2023-10-14 11:58] LABS: Bedside Glucose 318 mg/dL (74-106)
--- NOTE | 2023-10-14 12:30 | PN_ITS ---
Subjective Subjective Patient seen and examined. She was resting calmly. Per her nurse no active events overnight. Unable to do review of systems as patient was sleeping. She has remained hemodynamically stable. Sodium is up to 152. Objective Data Objective Data Vital Signs: Vital Signs Temp Pulse Resp BP Pulse Ox O2 Del Method O2 Flow Rate 97.9 F 105 H 20 H 140/80 H 94 Nasal Cannula 2 10/14/23 09:38 10/14/23 09:38 10/14/23 09:38 10/14/23 09:38 10/14/23 09:38 10/14/23 09:42 10/14/23 09:42 Oxygen Flow Rate (L/min) 2 Oxygen Delivery Method Nasal Cannula Weight: 182 lb 8.684 oz Body Mass Index (BMI) 31.3 Intake & Output: Intake and Output for Last 24 Hours 10/12/23 10/13/23 10/14/23 23:59 23:59 23:59 Intake Total 2100 / 2100 5223.76 / 5223.76 1103.75 / 1103.75 Output Total 700 / 700 1999 / 1999 1250 / 1250 Balance 1400 / 1400 3223.76 / 3223.76 -146.25 / -146.25 Lab / Micro Data 10/14/23 04:40 10/14/23 04:40 Labs: Laboratory Results - last 24 hr 10/13/23 06:35: Diff Path Review Reviewed 10/13/23 15:54: POC Glucose 284 H 10/13/23 20:27: POC Glucose 279 H 10/14/23 04:40: WBC 16.2 H, RBC 4.66, Hgb 11.5 L, Hct 37.8, MCV 81.1, MCH 24.7 L , MCHC 30.4 L, RDW Std Deviation 50.3 H, RDW Coeff of Anali 17.3 H, Plt Count 217, MPV 11.7, Immature Gran % (Auto) 0.600, Neut % (Auto) 81.5 H, Lymph % (Auto) 5.5 L, Mchenry % (Auto) 10.3 H, Eos % (Auto) 1.8, Baso % (Auto) 0.3, Absolute Neuts (auto) 13.2 H, Absolute Lymphs (auto) 0.90, Nucleated RBC % 0, Differential Comment SCANNED, Diff Path Review December, Sodium 152 H, Potassium 3.3 L, Chloride 125 H, Carbon Dioxide 23.0, Anion Gap 4 L, BUN 72 H, Creatinine 1.73 H, Estim Creat Clear Calc 30.60, Est GFR (MDRD) Af Amer 37 L, Est GFR (MDRD) Non-Af 31 L, BUN/Creatinine Ratio 41.6 H, Glucose 388 H, Calcium 8.8 10/14/23 06:06: POC Glucose 414 H 10/14/23 06:08: POC Glucose 365 H 10/14/23 11:15: POC Glucose 318 H Micro: Microbiology 10/12/23 16:05 Urine Catheter - Marcus Urine Culture - Final Escherichia coli Physical Exam Const Orientation / Consciousness: confused and lethargic HEENT normocephalic and head/scalp atraumatic Neck no lymphadenopathy and supple Lymph Lymphatic: no lymphadenopathy noted and no lymphedema noted Resp Resp Narrative: mildly diminished breath sounds bibasally, no wheezes or crackles. On 2L of oxygen. Cardio regular rate, regular rhythm, S1 normal heart sound, S2 normal heart sound and no murmurs GI normal to inspection, nondistended, normoactive bowel sounds, soft to palpation and non-tender Extremity Extremity Narrative: RUE in sling. Skin Skin Narrative: extensive bruising over right shoulder and RUE. Neuro Neuro Narrative: restless, lethargic. Motor Exam: general weakness Psych Psych Narrative: confused Activity / Motor Behavior: restless Assessment & Plan Assessment/Plan (1) Rhabdomyolysis: (2) Fracture of proximal end of right humerus: (3) Fall: PLAN: Plan #RUE proximal humeral fracture due to mechanical fall * Right upper extremity currently in a sling. * Per orthopedics this is conservative management for now. PT OT on board. * On p.o. Tylenol, p.o. oxycodone and IV morphine as needed for pain. * For precautions. #YOON: Resolving. Creatinine down to 1.73 from 3.05 on admission. Will continue trending. #Hyponatremia: Sodium sodium is 1.52. Increased rate of D5 water to 150 cc/h- will trend sodium. #Hypokalemia: Potassium is 3.3. Replace and trend. #History of CAD: S/p stenting 2022. On aspirin and Plavix. Statin was held due to elevated CPK. #Rhabdomyolysis: CPK was 981 on admission. Likely due to mechanical fall. Should improve with hydration. #Elevated lactic acid: Most likely due to YOON and dehydration. Did have elevated white cell count but no clear evidence of infection. Will monitor. #SANTHOSH: On BiPAP nightly. #Type 2 diabetes mellitus: On insulin sliding scale. Tactics ACHS. #Seizure disorder: * On Keppra. Patient was noted to have bitten her tongue at the time that she had a fall. It is unclear whether she had a seizure or not then. * Will monitor if she has any symptoms like a seizure, will request neuroconsult to evaluate current dose of meds. * #History of asthma: Breathing treatments bronchodilators. #Rheumatoid arthritis: On leflunomide which is currently on hold on account of YOON. # Hypertension: Blood pressure was very low so BP meds held. #Mood disorder: On citalopram. Was also on Xanax and dose was decreased on admission. Was also on Effexor which is currently held. DVT prophylaxis: SCDs. Charges/Coding Visit Charges Inpatient E&M: 64075 Subs Hosp L2
[2023-10-14 14:53] LABS: CPK Total, Creatine Kinase 648 U/L (26-192)
[2023-10-14 17:06] LABS: Bedside Glucose 287 mg/dL (74-106)
[2023-10-14] MEDS: 0.9% Saline Lock 10 ML Syringe IV (19:54)
[2023-10-14] MEDS: HYDROmorphone Inj 0.2 MG/ML SYRINGE 0.200000000000000011 MG IV (19:59)
--- NOTE | 2023-10-14 20:27 | CPS ---
Pt slept during entire aerosol treatment RN notified
[2023-10-15] VITALS (11 sets, daily range): BP systolic 123–141; BP diastolic 63–85; PULSE 95–108; RESP 18–20; TEMP 36.4–37.3; O2SAT 91–96
[2023-10-15 01:28] LABS: Bedside Glucose 282 mg/dL (74-106)
[2023-10-15] MEDS: HYDROmorphone Inj 0.2 MG/ML SYRINGE 0.200000000000000011 MG IV ×2 (04:26→18:37)
[2023-10-15] MEDS: Dextrose 5%-Water (1000mL Bag) 1,000 ML 150 ML IV ×3 (05:03→19:00)
[2023-10-15] MEDS: Insulin Lispro 100 UNIT/ML INSULN.PEN SC ×4 (06:02→20:54)
[2023-10-15 06:20] LABS: Bedside Glucose 297 mg/dL (74-106)
[2023-10-15] MEDS: Budesonide Respules 0.5 MG/2 ML AMPUL.NEB. INHALATION (06:45)
[2023-10-15] MEDS: Ipratropium/Albuterol Sulfate 3 ML AMPUL.NEB INHALATION (06:45)
[2023-10-15 07:13] LABS: Absolute Lymphocyte Count 0.96 X10^3/uL (0.83-4.51); Absolute Neutrophil Count 11.6 X10^3/uL (2.0-7.7); Basophil# 0.03 X10^3/uL; Basophil% 0.2 % (0-1); Eosinophils% 4.2 % (0-5); Hematocrit 36.9 % (37-47); Hemoglobin 11.1 g/dL (12.0-15.0); Lymphocyte # 0.96 X10^3/ul (0.83-4.51); Lymphocyte % 6.7 % (19-41); Mean Corp Hgb Conc 30.1 g/dL (32-36); Mean Corpuscular Hgb 24.8 pg (27.0-32.0); Mean Corpuscular Volume 82.6 fL (81-99); Mean Platelet Vol. 10.6 fl (6.2-12.0); Monocyte% 6.3 % (0-10); NRBC Flagged by Analyzer 0 % (0-5); Neutrophil # 11.63 X10^3/uL (2.7-7.7); Neutrophil % 81.8 % (47-70); Platelet Count 145 K/mm3 (150-450); RBC Distribution Width CV 17.3 % (11.6-14.6); Red Blood Count 4.47 M/mm3 (4.2-5.4); White Blood Count 14.2 K/mm3 (4.4-11.0)
[2023-10-15 07:35] LABS: Anion Gap 5 (5-15); BUN 37 mg/dL (7-18); BUN/Creat Ratio 29.4 RATIO (10-20); Calcium,Total 8.4 mg/dL (8.5-10.1); Chloride 122 mmol/L (98-107); Creatinine, Serum 1.26 mg/dL (0.55-1.02); EST Glomerular Filtration Rate 44 mL/min (>60); Est Glom Filt Rate - Afr Amer 54 mL/min (>60); Estimated Creatinine Clearance 42.01 ml/min; Glucose 323 mg/dL (74-106); Sodium Level 150 mmol/L (136-145)
[2023-10-15 08:08] LABS: CPK Total, Creatine Kinase 332 U/L (26-192)
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
[2023-10-15] MEDS: LEVETIRACETAM IV ×2 (11:16→20:42)
[2023-10-15] MEDS: NORMAL SALINE 0.9% IV ×2 (11:16→20:42)
--- NOTE | 2023-10-15 11:18 | PN_ITS ---
Subjective Subjective Patient seen and examined. She was much more alert and communicative today. She had no active complaints. Review of systems otherwise negative. Objective Data Objective Data Vital Signs: Vital Signs Temp Pulse Resp BP Pulse Ox O2 Del Method O2 Flow Rate 97.6 F L 95 18 134/70 H 94 Nasal Cannula 2 10/15/23 10:28 10/15/23 10:28 10/15/23 10:28 10/15/23 10:28 10/15/23 10:10/15/23 10:10/15/23 10:28 Oxygen Flow Rate (L/min) 2 Oxygen Delivery Method Nasal Cannula Weight: 182 lb 8.684 oz Body Mass Index (BMI) 31.3 Intake & Output: Intake and Output for Last 24 Hours 10/13/23 10/14/23 10/15/23 23:59 23:59 23:59 Intake Total 5223.76 / 5223.76 3250.00 / 3250.00 997.5 / 997.5 Output Total 2000 / 1999 1800 / 2500 1200 / 1200 Balance 3223.76 / 3223.76 1450.00 / 750.00 -202.5 / -202.5 Lab / Micro Data 10/15/23 06:20 10/15/23 06:20 Labs: Laboratory Results - last 24 hr 10/14/23 11:15: POC Glucose 318 H 10/14/23 13:53: Total Creatine Kinase 648 H 10/14/23 16:48: POC Glucose 287 H 10/14/23 22:06: POC Glucose 282 H 10/15/23 05:59: POC Glucose 297 H 10/15/23 06:20: WBC 14.2 H, RBC 4.47, Hgb 11.1 L, Hct 36.9 L, MCV 82.6, MCH 24.8 L, MCHC 30.1 L, RDW Std Deviation 51.0 H, RDW Coeff of Anali 17.3 H, Plt Count 145 L, MPV 10.6, Immature Gran % (Auto) 0.800, Neut % (Auto) 81.8 H, Lymph % (Auto) 6.7 L, [place] % (Auto) 6.3, Eos % (Auto) 4.2, Baso % (Auto) 0.2, Absolute Neuts (auto) 11.6 H, Absolute Lymphs (auto) 0.96, Nucleated RBC % 0, Sodium 150 H, Potassium 3.0 L, Chloride 122 H, Carbon Dioxide 23.0, Anion Gap 5, BUN 37 H, C reatinine 1.26 H, Estim Creat Clear Calc 42.01, Est GFR (MDRD) Af Amer 54 L, Est GFR (MDRD) Non-Af 44 L, BUN/Creatinine Ratio 29.4 H, Glucose 323 H, Calcium 8.4 L, Total Creatine Kinase 332 H Micro: Microbiology 10/12/23 16:59 Blood Culture (Wb) - Anticubital Left Blood Culture - Preliminary No growth in 48 hours. 10/12/23 14:45 Blood Culture (Wb) - Anticubital Right Blood Culture - Preliminary No growth in 48 hours. 10/12/23 16:05 Urine Catheter - Marcus Urine Culture - Final Escherichia coli Physical Exam Const alert Constitutional Narrative: frail, weak HEENT normocephalic and head/scalp atraumatic Neck no lymphadenopathy and supple Lymph Lymphatic: no lymphadenopathy noted and no lymphedema noted Resp Resp Narrative: mildly diminished breath sounds bibasally, no wheezes or crackles. On 2L of oxygen. Cardio regular rate, regular rhythm, S1 normal heart sound, S2 normal heart sound and no murmurs GI normal to inspection, nondistended, normoactive bowel sounds, soft to palpation and non-tender Extremity Extremity Narrative: RUE in sling. Skin Skin Narrative: extensive bruising over right shoulder and RUE. Neuro Neuro Narrative: lethargic, though she is much more communicative today Motor Exam: general weakness Psych Mood & Affect: flat affect Assessment & Plan Assessment/Plan (1) Rhabdomyolysis: (2) Fracture of proximal end of right humerus: (3) Fall: PLAN: Plan #RUE proximal humeral fracture due to mechanical fall * Right upper extremity currently in a sling. * Per orthopedics this is conservative management for now. PT OT on board. * On p.o. Tylenol, p.o. oxycodone and IV morphine as needed for pain. * For precautions. #YOON: Resolving. Cr down to 1.26. #Hyponatremia: sodium is slightly down to 150 today. Will continue D5W. #Hypokalemia: Potassium is 3.0. Replace and trend. #History of CAD: S/p stenting 2023. On aspirin and Plavix. Statin was held due to elevated CPK. #Rhabdomyolysis: resolving. CPK is down to 332. #Elevated lactic acid: Most likely due to YOON and dehydration. Did have elevated white cell count but no clear evidence of infection. Will monitor. #SANTHOSH: On BiPAP nightly. #Type 2 diabetes mellitus: On insulin sliding scale. Tactics ACHS. #Seizure disorder: * On Keppra. Patient was noted to have bitten her tongue at the time that she had a fall. It is unclear whether she had a seizure or not then. * Will monitor if she has any symptoms like a seizure, will request neuroconsult to evaluate current dose of meds. * hasnt had any overt seizure since admission * #History of asthma: Breathing treatments bronchodilators. #Rheumatoid arthritis: On leflunomide which is currently on hold on account of YOON. # Hypertension: Blood pressure was very low so BP meds held. Hypotension has resolved. Will resume BP meds #Mood disorder: On citalopram. Was also on Xanax and dose was decreased on admission. Was also on Effexor which is currently held. DVT prophylaxis: SCDs. Disposition; awaiting placement Charges/Coding Visit Charges Inpatient E&M: 89511 Subs Hosp L2
[2023-10-15] MEDS: Ceftriaxone 1 GM/50 ML BAG IV (11:50)
[2023-10-15 11:58] LABS: Bedside Glucose 270 mg/dL (74-106)
[2023-10-15 17:46] LABS: Bedside Glucose 250 mg/dL (74-106)
[2023-10-15] MEDS: Potassium Chloride 10mEq/100mL 10 MEQ/100 ML IV.SOLN. 100 MEQ IV BOLUS ×4 (19:00→23:42)
[2023-10-15] MEDS: 0.9% Saline Lock 10 ML Syringe IV (20:45)
[2023-10-15 21:17] LABS: Bedside Glucose 228 mg/dL (74-106)
[2023-10-16] VITALS (8 sets, daily range): BP systolic 111–147; BP diastolic 53–95; PULSE 96–110; RESP 16–18; TEMP 36.3–37.3; O2SAT 93–96
[2023-10-16] MEDS: Dextrose 5%-Water (1000mL Bag) 1,000 ML 150 ML IV (03:43)
[2023-10-16 06:22] LABS: Absolute Lymphocyte Count 0.86 X10^3/uL (0.83-4.51); Absolute Neutrophil Count 9.5 X10^3/uL (2.0-7.7); Basophil# 0.03 X10^3/uL; Basophil% 0.2 % (0-1); Eosinophil# 0.54 X10^3/uL; Eosinophils% 4.5 % (0-5); Hematocrit 35.8 % (37-47); Hemoglobin 10.9 g/dL (12.0-15.0); Lymphocyte # 0.86 X10^3/ul (0.83-4.51); Lymphocyte % 7.1 % (19-41); Mean Corp Hgb Conc 30.4 g/dL (32-36); Mean Corpuscular Hgb 24.9 pg (27.0-32.0); Mean Corpuscular Volume 81.7 fL (81-99); Monocyte# 0.96 X10^3/uL; NRBC Flagged by Analyzer 0 % (0-5); Platelet Count 128 K/mm3 (150-450); RBC Distribution Width CV 17.2 % (11.6-14.6); RBC Distribution Width SD 50.6 fl (35.1-43.9); Red Blood Count 4.38 M/mm3 (4.2-5.4)
[2023-10-16] MEDS: Insulin Lispro 100 UNIT/ML INSULN.PEN SC ×4 (06:38→21:44)
[2023-10-16 06:57] LABS: Bedside Glucose 295 mg/dL (74-106)
[2023-10-16 06:57] LABS: Anion Gap 5 (5-15); BUN 27 mg/dL (7-18); BUN/Creat Ratio 21.3 RATIO (10-20); Calcium,Total 7.9 mg/dL (8.5-10.1); Chloride 116 mmol/L (98-107); Creatinine, Serum 1.27 mg/dL (0.55-1.02); EST Glomerular Filtration Rate 44 mL/min (>60); Est Glom Filt Rate - Afr Amer 53 mL/min (>60); Estimated Creatinine Clearance 41.68 ml/min; Glucose 309 mg/dL (74-106); Potassium 3.3 mmol/L (3.5-5.1); Sodium Level 143 mmol/L (136-145)
[2023-10-16] MEDS: Ceftriaxone 1 GM/50 ML BAG IV (09:10)
[2023-10-16] MEDS: Clopidogrel Bisulfate 75 MG Tablet PO (09:14)
[2023-10-16] MEDS: Aspirin E.C. 81 MG Tablet PO (09:14)
[2023-10-16] MEDS: levETIRAcetam 750 MG Tablet 375 MG PO ×2 (09:14→21:42)
[2023-10-16] MEDS: oxyCODONE 5 MG Tablet PO ×2 (09:28→21:47)
--- NOTE | 2023-10-16 10:03 | PN_ITS ---
Subjective Subjective Patient seen and examined. She was much more alert and communicative today. She does appear to have episodes of confusion. She had no active complaints. She is on room air. 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 However her nurse tells me that she told the nurse it was due to her biting her tongue as it being the assumption all along. She has been hemodynamically stable. Review of systems otherwise negative. Objective Data Objective Data Vital Signs: Vital Signs Temp Pulse Resp BP Pulse Ox O2 Del Method O2 Flow Rate 98.9 F 98 18 134/53 H 94 Room Air 2 10/16/23 08:51 10/16/23 08:51 10/16/23 08:51 10/16/23 08:51 10/16/23 08:51 10/16/23 08:51 10/15/23 22:00 Oxygen Flow Rate (L/min) 2 Oxygen Delivery Method Room Air Weight: 182 lb 8.684 oz Body Mass Index (BMI) 31.3 Intake & Output: Intake and Output for Last 24 Hours 10/14/23 10/15/23 10/16/23 23:59 23:59 23:59 Intake Total 3250.00 / 3250.00 3735.00 / 3735.00 1767.5 / 1767.5 Output Total 1800 / 2500 2500 / 2500 1000 / 1000 Balance 1450.00 / 750.00 1235.00 / 1235.00 767.5 / 767.5 Lab / Micro Data 10/16/23 05:50 10/16/23 05:50 Labs: Laboratory Results - last 24 hr 10/15/23 11:40: POC Glucose 270 H 10/15/23 16:56: POC Glucose 250 H 10/15/23 20:53: POC Glucose 228 H 10/16/23 05:50: WBC 12.0 H, RBC 4.38, Hgb 10.9 L, Hct 35.8 L, MCV 81.7, MCH 24.9 L, MCHC 30.4 L, RDW Std Deviation 50.6 H, RDW Coeff of Anali 17.2 H, Plt Count 128 L, MPV 11.0, Immature Gran % (Auto) 1.200 H, Neut % (Auto) 79.0 H, Lymph % (Auto) 7.1 L, [place] % (Auto) 8.0, Eos % (Auto) 4.5, Baso % (Auto) 0.2, Absolute Neuts (auto) 9.5 H, Absolute Lymphs (auto) 0.86, Nucleated RBC % 0, Sodium 143, Potassium 3.3 L, Chloride 116 H, Carbon Dioxide 22.0, Anion Gap 5, BUN 27 H, Creatinine 1.27 H, Estim Creat Clear Calc 41.68, Est GFR (MDRD) Af Amer 53 L, Est GFR (MDRD) Non-Af 44 L, BUN/Creatinine Ratio 21.3 H, Glucose 309 H, Calcium 7.9 L 10/16/23 06:36: POC Glucose 295 H Micro: Microbiology 10/12/23 16:59 Blood Culture (Wb) - Anticubital Left Blood Culture - Preliminary No growth in 48 hours. 10/12/23 14:45 Blood Culture (Wb) - Anticubital Right Blood Culture - Preliminary No growth in 48 hours. 10/12/23 16:05 Urine Catheter - Marcus Urine Culture - Final Escherichia coli Physical Exam Const alert and no apparent distress Constitutional Narrative: frail, weak General Appearance: cooperative Orientation / Consciousness: confused HEENT normocephalic and head/scalp atraumatic HEENT Narrative: has blackening of anterior tongue. Mouth: dry mucous membranes Eyes PERRL and EOMs intact bilaterally Neck no lymphadenopathy and supple Lymph Lymphatic: no lymphadenopathy noted and no lymphedema noted Resp Resp Narrative: mildly diminished breath sounds bibasally, no wheezes or crackles. On room air. Cardio regular rate, regular rhythm, S1 normal heart sound, S2 normal heart sound and no murmurs GI normal to inspection, nondistended, normoactive bowel sounds, soft to palpation and non-tender Extremity normal capillary refill and no clubbing, cyanosis or edema Extremity Narrative: RUE in sling. Skin Skin Narrative: extensive bruising over right shoulder and RUE. Neuro Neuro Narrative: alert, occasional confusion. Motor Exam: general weakness Psych Psych Narrative: confused Mood & Affect: flat affect Assessment & Plan Assessment/Plan (1) Rhabdomyolysis: (2) Fracture of proximal end of right humerus: (3) Fall: QUALIFIERS: Encounter type: subsequent encounter Qualified Code(s): W19.XXXD - Unspecified fall, subsequent encounter PLAN: Plan #RUE proximal humeral fracture due to mechanical fall * Right upper extremity currently in a sling. * Per orthopedics this is conservative management for now. PT OT on board. * On p.o. Tylenol, p.o. oxycodone and IV morphine as needed for pain. * For precautions. #YOON: Resolving. Cr is 1.27 #Hyponatremia:resolved. Na is 143 today #Hypokalemia: Potassium is 3.3 today. Replace and trend. #UTI: urine culture grew E. coli. Patient on IV ceftriaxone. To complete a 5 day course. #History of CAD: S/p stenting 2022. On aspirin and Plavix. Statin was held due to elevated CPK. #Rhabdomyolysis: resolving with hydration. Will monitor. #Elevated lactic acid: resolved. #SANTHOSH: On BiPAP nightly. #Type 2 diabetes mellitus: On insulin sliding scale. Tactics ACHS. #Seizure disorder: * On Keppra. Patient was noted to have bitten her tongue at the time that she had a fall. It is unclear whether she had a seizure or not then. * hasnt had any overt seizure since admission * stable. * #History of asthma: Breathing treatments bronchodilators. #Rheumatoid arthritis: On leflunomide which is currently on hold on account of YOON. # Hypertension: Blood pressure was very low so BP meds held. Hypotension has resolved. BP meds resumed. #Mood disorder: On citalopram. Was also on Xanax and dose was decreased on admission. Was also on Effexor which is currently held. DVT prophylaxis: SCDs. Disposition; awaiting placement Charges/Coding Visit Charges Inpatient E&M: 35847 Subs Hosp L2
[2023-10-16] MEDS: Potassium Chloride 10mEq/100mL 10 MEQ/100 ML IV.SOLN. 100 MEQ IV BOLUS ×4 (11:34→16:15)
[2023-10-16 12:44] LABS: Bedside Glucose 276 mg/dL (74-106)
[2023-10-16] MEDS: Lactated Ringers 1,000 ML 100 ML IV ×2 (13:20→22:59)
[2023-10-16 17:10] LABS: Bedside Glucose 195 mg/dL (74-106)
[2023-10-16] MEDS: Metoprolol Tartrate 25 MG Tablet PO (21:41)
[2023-10-16] MEDS: ALPRAZolam 0.5 MG Tablet PO (21:41)
[2023-10-16] MEDS: MELATONIN 3 MG TABLET PO (21:41)
[2023-10-16] MEDS: Montelukast 10 MG Tablet PO (21:41)
[2023-10-16] MEDS: Meclizine HCl 25 MG Tablet PO (21:41)
[2023-10-16] MEDS: Citalopram 40 MG TABLET PO (21:42)
[2023-10-16] MEDS: Losartan Potassium 100 MG Tablet PO (21:44)
[2023-10-16] MEDS: Atorvastatin Calcium 20 MG Tablet PO (21:44)
[2023-10-16 22:30] LABS: Bedside Glucose 179 mg/dL (74-106)
[2023-10-17] VITALS (12 sets, daily range): BP systolic 82–137; BP diastolic 43–89; PULSE 68–104; RESP 18; TEMP 36.3–37.1; O2SAT 93–96
[2023-10-17 06:30] LABS: Absolute Lymphocyte Count 0.87 X10^3/uL (0.83-4.51); Absolute Neutrophil Count 9.7 X10^3/uL (2.0-7.7); Basophil# 0.03 X10^3/uL; Basophil% 0.3 % (0-1); Eosinophil# 0.46 X10^3/uL; Eosinophils% 3.9 % (0-5); Hematocrit 36.1 % (37-47); Hemoglobin 11.1 g/dL (12.0-15.0); Lymphocyte # 0.87 X10^3/ul (0.83-4.51); Lymphocyte % 7.3 % (19-41); Mean Corp Hgb Conc 30.7 g/dL (32-36); Mean Corpuscular Hgb 25.6 pg (27.0-32.0); Mean Corpuscular Volume 83.2 fL (81-99); Mean Platelet Vol. 11.2 fl (6.2-12.0); Monocyte# 0.74 X10^3/uL; Monocyte% 6.2 % (0-10); NRBC Flagged by Analyzer 0 % (0-5); Neutrophil # 9.72 X10^3/uL (2.7-7.7); Neutrophil % 81.3 % (47-70); Platelet Count 148 K/mm3 (150-450); RBC Distribution Width SD 51.8 fl (35.1-43.9); Red Blood Count 4.34 M/mm3 (4.2-5.4); White Blood Count 11.9 K/mm3 (4.4-11.0)
[2023-10-17 07:21] LABS: Anion Gap 4 (5-15); BUN 21 mg/dL (7-18); BUN/Creat Ratio 22.6 RATIO (10-20); Calcium,Total 8.4 mg/dL (8.5-10.1); Chloride 117 mmol/L (98-107); Creatinine, Serum 0.93 mg/dL (0.55-1.02); EST Glomerular Filtration Rate 63 mL/min (>60); Est Glom Filt Rate - Afr Amer 76 mL/min (>60); Estimated Creatinine Clearance 56.92 ml/min; Glucose 175 mg/dL (74-106); Potassium 3.5 mmol/L (3.5-5.1); Sodium Level 144 mmol/L (136-145)
[2023-10-17] MEDS: Ceftriaxone 1 GM/50 ML BAG IV (09:21)
[2023-10-17] MEDS: levETIRAcetam 750 MG Tablet 375 MG PO ×2 (10:04→22:56)
[2023-10-17] MEDS: Clopidogrel Bisulfate 75 MG Tablet PO (10:04)
[2023-10-17] MEDS: Metoprolol Tartrate 25 MG Tablet PO (10:04)
[2023-10-17] MEDS: amLODIPine 10 MG Tablet PO (10:06)
[2023-10-17] MEDS: Aspirin E.C. 81 MG Tablet PO (10:06)
[2023-10-17] MEDS: Leflunomide 10 MG TABLET 20 MG PO (10:07)
[2023-10-17] MEDS: Meclizine HCl 25 MG Tablet PO ×2 (10:07→22:55)
[2023-10-17] MEDS: Venlafaxine XR 150 MG Capsule 300 MG PO (10:07)
[2023-10-17] MEDS: Potassium Chloride Oral Tablet 20 MEQ PO (10:07)
--- NOTE | 2023-10-17 10:25 | PN_ITS ---
Subjective Subjective Patient seen and examined. She was resting calmly. Per her nurse, no active events overnight. She is awaiting placement. Objective Data Objective Data Vital Signs: Vital Signs Temp Pulse Resp BP Pulse Ox O2 Del Method O2 Flow Rate 98.5 F 104 H 18 132/70 H 95 Room Air 2 10/17/23 09:16 10/17/23 10:04 10/17/23 09:16 10/17/23 10:04 10/17/23 09:16 10/17/23 09:16 10/17/23 06:50 Oxygen Flow Rate (L/min) 2 Oxygen Delivery Method Room Air Weight: 182 lb 8.684 oz Body Mass Index (BMI) 31.3 Intake & Output: Intake and Output for Last 24 Hours 10/15/23 10/16/23 10/17/23 23:59 23:59 23:59 Intake Total 3735.00 / 3735.00 3425.0 / 3425.0 1000 / 1000 Output Total 2500 / 2500 2200 / 2200 0 / 0 Balance 1235.00 / 1235.00 1225.0 / 1225.0 1000 / 1000 Lab / Micro Data 10/17/23 06:05 10/17/23 06:05 Labs: Laboratory Results - last 24 hr 10/16/23 12:15: POC Glucose 276 H 10/16/23 16:45: POC Glucose 195 H 10/16/23 21:40: POC Glucose 179 H 10/17/23 06:05: WBC 11.9 H, RBC 4.34, Hgb 11.1 L, Hct 36.1 L, MCV 83.2, MCH 25.6 L, MCHC 30.7 L, RDW Std Deviation 51.8 H, RDW Coeff of Anali 17.0 H, Plt Count 148 L, MPV 11.2, Immature Gran % (Auto) 1.000 H, Neut % (Auto) 81.3 H, Lymph % (Auto) 7.3 L, [place] % (Auto) 6.2, Eos % (Auto) 3.9, Baso % (Auto) 0.3, Absolute Neuts (auto) 9.7 H, Absolute Lymphs (auto) 0.87, Nucleated RBC % 0, Sodium 144, Potassium 3.5, Chloride 117 H, Carbon Dioxide 23.0, Anion Gap 4 L, BUN 21 H, Creatinine 0.93, Estim Creat Clear Calc 56.92, Est GFR (MDRD) Af Amer 76, Est GFR (MDRD) Non-Af 63, BUN/Creatinine Ratio 22.6 H, Glucose 175 H, Calcium 8.4 L Micro: Microbiology 10/12/23 16:59 Blood Culture (Wb) - Anticubital Left Blood Culture - Preliminary No growth in 48 hours. 10/12/23 14:45 Blood Culture (Wb) - Anticubital Right Blood Culture - Preli minary No growth in 48 hours. 10/12/23 16:05 Urine Catheter - Marcus Urine Culture - Final Escherichia coli Physical Exam Const Constitutional Narrative: frail, weak, drowsy Orientation / Consciousness: lethargic HEENT normocephalic and head/scalp atraumatic Eyes PERRL and EOMs intact bilaterally Neck no lymphadenopathy and supple Lymph Lymphatic: no lymphadenopathy noted and no lymphedema noted Resp Resp Narrative: mildly diminished breath sounds bibasally, no wheezes or crackles. On room air. Cardio regular rate, regular rhythm, S1 normal heart sound, S2 normal heart sound and no murmurs GI normal to inspection, nondistended, normoactive bowel sounds, soft to palpation and non-tender Extremity normal capillary refill and no clubbing, cyanosis or edema Extremity Narrative: RUE in sling. Skin Skin Narrative: extensive bruising over right shoulder and RUE. Neuro Neuro Narrative: drowsy Motor Exam: general weakness Psych Psych Narrative: drowsy Activity / Motor Behavior: restless Assessment & Plan Assessment/Plan (1) Rhabdomyolysis: (2) Fracture of proximal end of right humerus: (3) Fall: QUALIFIERS: Encounter type: subsequent encounter Qualified Code(s): W19.XXXD - Unspecified fall, subsequent encounter PLAN: Plan #RUE proximal humeral fracture due to mechanical fall * Right upper extremity currently in a sling. * Per orthopedics this is conservative management for now. PT OT on board. * On p.o. Tylenol, p.o. oxycodone and IV morphine as needed for pain. * For precautions. #YOON: resolved. #Hyponatremia:resolved. #Hypokalemia: Potassium is 3.5 today. #UTI: urine culture grew E. coli. Patient on IV ceftriaxone. To complete a 5 day course. #History of CAD: S/p stenting 2022. On aspirin and Plavix. Statin was held due to elevated CPK. #Rhabdomyolysis: resolving with hydration. Will monitor. #Elevated lactic acid: resolved. #SANTHOSH: On BiPAP nightly. #Type 2 diabetes mellitus: On insulin sliding scale. Tactics ACHS. #Seizure disorder: * On Keppra. Patient was noted to have bitten her tongue at the time that she had a fall. It is unclear whether she had a seizure or not then. * hasnt had any overt seizure since admission * stable. * #History of asthma: Breathing treatments bronchodilators. #Rheumatoid arthritis: On leflunomide which is currently on hold on account of YOON. # Hypertension: Blood pressure was very low so BP meds held. Hypotension has resolved. BP meds resumed-amlodipine 10mg daily and metoprolol 25mg bid.. #Mood disorder: On citalopram. Was also on Xanax and dose was decreased on admission. Was also on Effexor which is currently held. On seroquel. DVT prophylaxis: SCDs. Disposition; awaiting placement Charges/Coding Visit Charges Inpatient E&M: 95107 Subs Hosp L2
[2023-10-17] MEDS: QUEtiapine 100 MG Tablet 200 MG PO (10:38)
--- NOTE | 2023-10-17 10:50 | CASEMGMT ---
TCU is not able to take patient. KARMEN met with patient. Introduced self and role at [facility]. SW let patient know that [facility] TCU cannot take her at discharge. Patient was not sure which facility. KARMEN asked if SW could contact her friend Sheba that is listed on her demographics sheet. Patient said that would be fine. SW called Sheba and left her a voice mail requesting a return call. Brigette BYRNE
--- NOTE | 2023-10-17 11:23 | CASEMGMT ---
SW received a return call from patient's friend Sheba. Sheba said she has an appt at [facility] today and she will be over after her appointment. Brigette BYRNE
[2023-10-17] MEDS: Insulin Lispro 100 UNIT/ML INSULN.PEN SC ×3 (11:40→22:59)
[2023-10-17 12:05] LABS: Bedside Glucose 199 mg/dL (74-106)
--- NOTE | 2023-10-17 13:12 | CASEMGMT ---
SW spoke with patient and her friend Sheba. SW answered Sheba's questions as she did not know patient was in the hospital until SW called her. Patient and Sheba had discussed nursing homes and their 3 choices are [place], [facility], and [facility]. KARMEN asked Mervat to please send referrals to those facilities. Brigette BYRNE
--- NOTE | 2023-10-17 13:25 | CASEMGMT ---
Addendum entered by Mervat Martinez 10/17/23 14:57: Patient was accepted by all facilities and preferes W. [facility] and [facility] updated. Mervat Martinez, Discharge Planning Asst. Original Note: Discharge Planning Referral sent via [facility] to [facility], [facility], and [facility]. Mervat Martinez, Discharge Planning Asst.
[2023-10-17 14:22] LABS: Pathologist Review Reviewed
--- NOTE | 2023-10-17 14:31 | CASEMGMT ---
Addendum entered by Brigette Martinez 10/17/23 15:09: SW called patient's friend Sheba and let her know that [facility] accepted patient. SW also let Sheba know that patient will need clothes to wear while she is at [facility]. Plan: [facility] under skilled level of care. Brigette BYRNE Original Note: [facility] accepted patient. SW went to notify patient, but she was sleeping. SW will try again later. Plan: d/c to [facility] Brigette BYRNE
[2023-10-17] MEDS: 0.9% Normal Saline (1000mL) 1,000 ML 999 ML IV (16:13)
[2023-10-17 16:35] LABS: Bedside Glucose 266 mg/dL (74-106)
[2023-10-17] MEDS: 0.9% Normal Saline (500mL Bag) 500 ML IV (19:17)
[2023-10-17] MEDS: Lactated Ringers 1,000 ML 125 ML IV (21:32)
[2023-10-17] MEDS: Citalopram 40 MG TABLET PO (22:55)
[2023-10-17 22:57] LABS: Bedside Glucose 192 mg/dL (74-106)
[2023-10-17] MEDS: Atorvastatin Calcium 20 MG Tablet PO (22:57)
[2023-10-17] MEDS: Montelukast 10 MG Tablet PO (22:57)
[2023-10-18] MEDS: Lactated Ringers 1,000 ML 125 ML IV (05:25)
[2023-10-18 05:44] VITALS: BP 116/58; PULSE 90; RESP 18; TEMP 36.4; O2SAT 96
[2023-10-18 06:00] VITALS: BMI 31.2
[2023-10-18 06:07] LABS: Absolute Lymphocyte Count 0.74 X10^3/uL (0.83-4.51); Absolute Neutrophil Count 7.7 X10^3/uL (2.0-7.7); Basophil# 0.05 X10^3/uL; Basophil% 0.5 % (0-1); Eosinophil# 0.28 X10^3/uL; Hematocrit 33.8 % (37-47); Hemoglobin 9.9 g/dL (12.0-15.0); Lymphocyte # 0.74 X10^3/ul (0.83-4.51); Lymphocyte % 7.8 % (19-41); Mean Corp Hgb Conc 29.3 g/dL (32-36); Mean Corpuscular Hgb 24.6 pg (27.0-32.0); Mean Corpuscular Volume 84.1 fL (81-99); Mean Platelet Vol. 11.5 fl (6.2-12.0); Monocyte% 6.3 % (0-10); NRBC Flagged by Analyzer 0 % (0-5); Neutrophil # 7.67 X10^3/uL (2.7-7.7); Neutrophil % 81.1 % (47-70); Platelet Count 145 K/mm3 (150-450); RBC Distribution Width CV 17.2 % (11.6-14.6); RBC Distribution Width SD 52.6 fl (35.1-43.9); Red Blood Count 4.02 M/mm3 (4.2-5.4); White Blood Count 9.5 K/mm3 (4.4-11.0)
[2023-10-18] MEDS: Insulin Lispro 100 UNIT/ML INSULN.PEN SC ×2 (06:20→11:19)
[2023-10-18 06:27] LABS: Anion Gap 5 (5-15); BUN 24 mg/dL (7-18); BUN/Creat Ratio 25.4 RATIO (10-20); Chloride 112 mmol/L (98-107); Creatinine, Serum 0.95 mg/dL (0.55-1.02); EST Glomerular Filtration Rate 62 mL/min (>60); Est Glom Filt Rate - Afr Amer 75 mL/min (>60); Estimated Creatinine Clearance 55.65 ml/min; Glucose 171 mg/dL (74-106); Potassium 3.3 mmol/L (3.5-5.1); Sodium Level 141 mmol/L (136-145)
[2023-10-18 07:01] VITALS: O2SAT 95
[2023-10-18 09:16] VITALS: BP 131/60; PULSE 89; RESP 18; TEMP 36.6; O2SAT 94
[2023-10-18] MEDS: Potassium Chloride Oral Tablet 20 MEQ 40 MEQ PO (09:20)
[2023-10-18] MEDS: Potassium Chloride Oral Tablet 20 MEQ PO (09:20)
[2023-10-18] MEDS: amLODIPine 10 MG Tablet PO (09:21)
[2023-10-18] MEDS: Venlafaxine XR 150 MG Capsule 300 MG PO (09:21)
[2023-10-18] MEDS: levETIRAcetam 750 MG Tablet 375 MG PO (09:21)
[2023-10-18 09:22] VITALS: PULSE 89
[2023-10-18] MEDS: Metoprolol Tartrate 25 MG Tablet PO (09:22)
[2023-10-18] MEDS: Leflunomide 10 MG TABLET 20 MG PO (09:22)
[2023-10-18] MEDS: Meclizine HCl 25 MG Tablet PO (09:22)
[2023-10-18] MEDS: Aspirin E.C. 81 MG Tablet PO (09:22)
[2023-10-18] MEDS: Ceftriaxone 1 GM/50 ML BAG IV (09:23)
[2023-10-18] MEDS: Clopidogrel Bisulfate 75 MG Tablet PO (09:23)
[2023-10-18 11:05] LABS: Bedside Glucose 172 mg/dL (74-106)
[2023-10-18 11:38] LABS: Bedside Glucose 250 mg/dL (74-106)
--- NOTE | 2023-10-18 12:21 | CASEMGMT ---
KARMEN spoke with patient and her friend Sheba. KARMEN let them know patient will likely go to [place] today. Sheba asked that KARMEN call her if patient is going to be discharged today. Brigette BYRNE
--- NOTE | 2023-10-18 13:03 | TREXTCAR_ITS ---
Diet Diet Order/Speech Therapy: 10/17/23 10:50 Diet: Regular - General Food consistency:: Pureed Liquid Consistency:: Regular/Thin Is pt able to select menu?: No Diet Comments: 1:1 supervision, FEED ONLY WHEN ALERT. no nuts or dairy. Routine Orders/Code Status Enema Type: Fleetz Enema Frequency: Daily PRN Suppository Type: Dulcolax 10mg Suppository Frequency: Daily PRN O2 Frequency: PRN Keep PO Greater than or Equal to (%): 90 Wound(s) tongue: Wound Type: scab left elbow: Wound Type: scabs left buttock: Wound Type: Skin Tear Therapies Weight Bearing: Weight bearing as tolerated Occupational Therapy: Eval and Treat Speech Therapy: Eval and Treat Problem/Diagnosis (1) Rhabdomyolysis: Status: Acute Code(s): M62.82 - Rhabdomyolysis (2) Fracture of proximal end of right humerus: Status: Acute Code(s): S42.201A - Unspecified fracture of upper end of right humerus, initial encounter for closed fracture (3) Fall: Status: Acute Code(s): W19.XXXA - Unspecified fall, initial encounter Plan #RUE proximal humeral fracture due to mechanical fall * Right upper extremity currently in a sling. * Per orthopedics this is conservative management for now. PT OT on board. * On p.o. Tylenol, p.o. oxycodone and IV morphine as needed for pain. * For precautions. #YOON: resolved. #Hyponatremia:resolved. #Hypokalemia: Potassium is 3.5 today. #UTI: urine culture grew E. coli. Patient on IV ceftriaxone. To complete a 5 day course. #History of CAD: S/p stenting 2022. On aspirin and Plavix. Statin was held due to elevated CPK. #Rhabdomyolysis: resolving with hydration. Will monitor. #Elevated lactic acid: resolved. #SANTHOSH: On BiPAP nightly. #Type 2 diabetes mellitus: On insulin sliding scale. Tactics ACHS. #Seizure disorder: * On Keppra. Patient was noted to have bitten her tongue at the time that she had a fall. It is unclear whether she had a seizure or not then. * hasnt had any overt seizure since admission * stable. * #History of asthma: Breathing treatments bronchodilators. #Rheumatoid arthritis: On leflunomide which is currently on hold on account of YOON. # Hypertension: Blood pressure was very low so BP meds held. Hypotension has resolved. BP meds resumed-amlodipine 10mg daily and metoprolol 25mg bid.. #Mood disorder: On citalopram. Was also on Xanax and dose was decreased on admission. Was also on Effexor which is currently held. On seroquel. DVT prophylaxis: SCDs. Disposition; awaiting placement Allergies/Procedures Done in Hospital Allergies Sulfa (Sulfonamide Antibiotics) Allergy (Verified 10/12/23 13:26) Hives tree nut Allergy (Verified 10/12/23 13:26) Anaphylaxis Rabbit Adverse Reaction (Severe, Verified 10/12/23 13:26) NEEDS FOLLOW-UP sulfamethoxazole [From Bactrim] Adverse Reaction (Severe, Verified 10/12/23 13:26) Skin rashes & blisters trimethoprim [From Bactrim] Adverse Reaction (Severe, Verified 10/12/23 13:26) Skin rashes & blisters codeine Adverse Reaction (Verified 10/12/23 13:26) Other Environmental Allergies: Uncoded Adverse Reaction (Verified 10/12/23 13:26) NEEDS FOLLOW-UP skunk erythromycin base Adverse Reaction (Verified 10/12/23 13:26) Upset Stomach PT REPORTS UPSET STOMACH WITH USE milk [dairy] Adverse Reaction (Verified 10/12/23 13:26) Upset Stomach morphine Adverse Reaction (Verified 10/12/23 13:26) Nausea Type of Care/Length of Stay Estimated LOS: Convalescent Care Less Than 30 days Type of Care Needed: Skilled Rehab Potential: Fair Prognosis: Fair Additional Orders/Day of Discharge Day of Discharge: 10/18/23 Dietary and Speech Recommendations Dietitian Recommendations/Changes: recommend cardiac, 1800 calorie controlled diet - texture/consistency per DATA ANALYSIS MANAGER; will monitor PO intake, wt, labs, and adjust diet/add ONS as indicated. Discharge Plan Admission Admit Date/Time: 10/12/23 16:33 Primary Reason for Your Visit: right humeral fracture Attending Provider: Viry Boyce Primary Care Provider: Ruel Peoples Consulting Providers: Elayne Baker Instructions Patient Instructions: ED Fracture, Upper Extremity Discharge Orders/Prescriptions Prescriptions: New oxycodone 5 mg Tablet 5 mg PO Q4H PRN PRN (Reason: Pain Score 4-10) 3 Days Qty: 18 0RF Continued meclizine 25 mg tablet 25 mg PO BID hydrochlorothiazide 12.5 mg tablet 12.5 mg PO DAILY citalopram 40 mg tablet 40 mg PO QHS levetiracetam 750 mg tablet extended release 24 hr 750 mg PO DAILY ondansetron HCl 4 mg tablet 4 mg PO Q8H PRN (Reason: Nausea) atorvastatin 20 mg tablet 20 mg PO QHS Spiriva Respimat 2.5 mcg/actuation mist 2 puff inhalation DAILY potassium chloride 20 mEq tablet extended release 20 meq PO DAILY metformin 500 mg tablet 500 mg PO DAILY glipizide 5 mg tablet extended release 24hr 5 mg PO DAILY Jardiance 10 mg tablet 10 mg PO DAILY Patient Comments: pt states she only takes as neeeded leflunomide 20 mg tablet 20 mg PO DAILY pregabalin [Lyrica] 75 mg capsule 75 mg PO DAILY guaifenesin [Mucinex] 600 mg tablet extended release 12hr 600 mg PO BID PRN (Reason: congestion) atomoxetine 80 mg capsule 80 mg PO DAILY venlafaxine 150 mg capsule,extended release 24hr 300 mg PO DAILY prednisone 20 mg tablet 5 mg PO DAILY PRN (Reason: pain) Rx Instructions: x5days metoprolol tartrate 25 mg tablet 25 mg PO BID Qty: 60 11RF Patient Comments: pt states they take once daily fluticasone propion-salmeterol [Advair Diskus] 1 EACH blister with device 1 puff inhalation BID Patient Comments: RINSE AND GARGLE MOUTH WITH WATER AFTER EACH USE. montelukast 10 MG tablet 10 mg PO QHS albuterol sulfate [ProAir HFA] 1 PUFF inhaler 1 - 2 puff inhalation Q4H PRN (Reason: Asthma) losartan 100 mg tablet 100 mg PO QHS amlodipine 10 MG tablet 10 mg PO DAILY quetiapine 100 mg tablet 200 mg PO QHS Patient Comments: pt states she takes 1 at night if needed alprazolam 0.5 mg tablet 0.5 mg PO DAILY PRN (Reason: Anxiety) Rx Instructions: Take 1 tab QAM and 2 tabs at night fluticasone propionate 50 mcg/actuation spray,suspension 1 spray intranasal DAILY PRN (Reason: allergy symptoms) Rx Instructions: administer into each nostril alprazolam 0.5 mg tablet 1 mg PO QHS Rx Instructions: Take 1 tab QAM and 2 tabs at night clopidogrel [Plavix] 75 mg tablet 75 mg PO DAILY aspirin [Adult Low Dose Aspirin] 81 mg tablet,delayed release (DR/EC) 81 mg PO DAILY furosemide 40 mg tablet 40 mg PO DAILY PRN (Reason: edema) Qty: 30 11RF Referrals / Follow Up: Ruel Peoples MD [Primary Care Provider] - Within 1 Week Steven Joyce DO [Med Staff - Active Staff] - Within 2 Weeks Disposition Disposition (needs filled in before D/C Order can be placed): Shelter Facility (3) Fall Qualifiers: Encounter type: subsequent encounter Qualified Code(s): W19.XXXD - Unspecified fall, subsequent encounter
--- NOTE | 2023-10-18 13:05 | DS.PCM_ITS ---
Providers Date of Admission: 10/12/23 Date of Discharge: 10/18/23 Primary Care Physician: Dr. Ruel Peoples MD Reason For Visit: PROXIMAL HUMERUS FX,ACUTE KIDNEY INJURY Diagnosis Discharge Diagnosis (1) Rhabdomyolysis: Status: Acute Code(s): M62.82 - Rhabdomyolysis (2) Fracture of proximal end of right humerus: Status: Acute Code(s): S42.201A - Unspecified fracture of upper end of right humerus, initial encounter for closed fracture (3) Fall: Status: Acute Code(s): W19.XXXA - Unspecified fall, initial encounter Qualifiers: Encounter type: subsequent encounter Qualified Code(s): W19.XXXD - Unspecified fall, subsequent encounter Plan #RUE proximal humeral fracture due to mechanical fall * Right upper extremity currently in a sling. * Per orthopedics this is conservative management for now. PT OT on board. * On p.o. Tylenol, p.o. oxycodone and IV morphine as needed for pain. * For precautions. #YOON: resolved. #Hyponatremia:resolved. #Hypokalemia: Potassium is 3.5 today. #UTI: urine culture grew E. coli. Patient on IV ceftriaxone. To complete a 5 day course. #History of CAD: S/p stenting 2022. On aspirin and Plavix. Statin was held due to elevated CPK. #Rhabdomyolysis: resolving with hydration. Will monitor. #Elevated lactic acid: resolved. #SANTHOSH: On BiPAP nightly. #Type 2 diabetes mellitus: On insulin sliding scale. Tactics ACHS. #Seizure disorder: * On Keppra. Patient was noted to have bitten her tongue at the time that she had a fall. It is unclear whether she had a seizure or not then. * hasnt had any overt seizure since admission * stable. * #History of asthma: Breathing treatments bronchodilators. #Rheumatoid arthritis: On leflunomide which is currently on hold on account of YOON. # Hypertension: Blood pressure was very low so BP meds held. Hypotension has resolved. BP meds resumed-amlodipine 10mg daily and metoprolol 25mg bid.. #Mood disorder: On citalopram. Was also on Xanax and dose was decreased on admission. Was also on Effexor which is currently held. On seroquel. DVT prophylaxis: SCDs. Disposition; awaiting placement Medications at Discharge Home Medications fluticasone 500 mcg-salmeterol 50 mcg/dose blistr powdr for inhalation (Advair Diskus) 1 puff inhalation BID shortness of breath 01/23/15 albuterol sulfate 90 mcg/actuation aerosol inhaler (ProAir HFA) 1 - 2 puff inhalation Q4H PRN Asthma 04/15/15 montelukast 10 mg tablet 10 mg PO QHS allergies 04/15/15 amlodipine 10 mg tablet 10 mg PO DAILY blood pressure 05/28/15 atorvastatin 20 mg tablet 20 mg PO QHS cholesterol 09/23/22 citalopram 40 mg tablet 40 mg PO QHS sleep 09/23/22 empagliflozin 10 mg tablet (Jardiance) 10 mg PO DAILY diabetes 09/23/22 glipizide 5 mg tablet, extended release 24 hr 5 mg PO DAILY diabetes 09/23/22 hydrochlorothiazide 12.5 mg tablet 12.5 mg PO DAILY blood pressure 09/23/22 leflunomide 20 mg tablet 20 mg PO DAILY inflammation 09/23/22 levetiracetam 750 mg tablet,extended release 24 hr 750 mg PO DAILY seizures 09/23/22 losartan 100 mg tablet 100 mg PO QHS blood pressure 09/23/22 metformin 500 mg tablet 500 mg PO DAILY diabetes 09/23/22 ondansetron HCl 4 mg tablet 4 mg PO Q8H PRN Nausea 09/23/22 potassium chloride 20 mEq tablet,extended release 20 meq PO DAILY potassium 10/14 pregabalin 75 mg capsule (Lyrica) 75 mg PO DAILY pain 09/23/22 quetiapine 100 mg tablet 200 mg PO QHS mood disorder 09/23/22 tiotropium bromide 2.5 mcg/actuation mist for inhalation (Spiriva Respimat) 2 puff inhalation DAILY shortness of breath 09/23/22 meclizine 25 mg tablet 25 mg PO BID dizziness 11/26/22 alprazolam 0.5 mg tablet 0.5 mg PO DAILY PRN Anxiety 12/15/22 atomoxetine 80 mg capsule 80 mg PO DAILY attention 12/15/22 venlafaxine 150 mg capsule,extended release 24 hr 300 mg PO DAILY mood 12/15/22 aspirin 81 mg tablet,delayed release (Adult Low Dose Aspirin) 81 mg PO DAILY heart 01/06/23 guaifenesin 600 mg tablet, extended release 12 hr (Mucinex) 600 mg PO BID PRN congestion 04/29/23 metoprolol tartrate 25 mg tablet 25 mg PO BID blood pressure #60 tabs 04/29/23 prednisone 20 mg tablet 5 mg PO DAILY PRN pain 04/29/23 furosemide 40 mg tablet 40 mg PO DAILY PRN edema #30 tabs 06/24/23 alprazolam 0.5 mg tablet 1 mg PO QHS anxiety/sleep 10/12/23 clopidogrel 75 mg tablet (Plavix) 75 mg PO DAILY blood thinner 10/12/23 fluticasone propionate 50 mcg/actuation nasal spray,suspension 1 spray intranasal DAILY PRN allergy symptoms 10/12/23 oxycodone 5 mg tablet 5 mg PO Q4H PRN PRN Pain Score 4-10 3 days #18 tabs 10/18/23 Hospital Course Operations None Procedures None Summary of Care Provided Minutes Spent on Discharge: 55 Hospital Course: Patient is a 73-year-old female with a past medical history as outlined was admitted through the ED on 10/12/2023 with a complaint of mechanical fall which happened 2 days prior to admission and with associated weakness. She tripped and fell and thinks that she hit her head. She complained of right shoulder and right knee pain. She did not think she lost consciousness. Imaging showed a right impacted proximal surgical neck fracture. WBC was also elevated at 17.4 hemoglobin was 15.1. Sodium was elevated at 150 and creatinine was 3.05. She was also tachycardic with heart rate of 151 on admission. Her heart rate subsequently improved. She was admitted and managed for debility and mechanical fall with resultant right proximal humeral fracture as well as hypernatremia and YOON. She was hydrated with IV fluids. Her right upper extremity was placed in a sling. Case was discussed with orthopedic surgery on-call who recommended conservative management and stated the patient could follow-up on outpatient basis. # Hyponatremia resolved and YOON also resolved. Urine cultures grew E. coli and she was treated for UTI and placed on IV ceftriaxone. She was also managed for rhabdomyolysis due to mechanical fall which resolved with hydration. Hospital course was complicated by encephalopathy which subsequently resolved and patient was alert and communicative. She remained stable and was skilled as needing rehab. She was discharged half-way facility on 10/18/2023. She was given a prescription for p.o. oxycodone 5 mg every 4 hours as needed for total of 18 tabs with 0 refills. She is follow-up with her primary care doctor within 1 to 2 weeks and follow-up with orthopedic surgery within 1 to 2 weeks. Patient seen and examined prior to discharge. She felt well and had no complaints. She had an uneventful night. Review of systems otherwise negative. Labs and vitals reviewed. Home medication reviewed and reconciled. Physical Exam Const alert and no apparent distress Constitutional Narrative: frail, weak, drowsy General Appearance: cooperative Orientation / Consciousness: confused and lethargic HEENT normocephalic, head/scalp atraumatic and hearing grossly normal bilaterally Mouth: oral and palatal mucosa normal Eyes PERRL and EOMs intact bilaterally Neck no lymphadenopathy and supple Lymph Lymphatic: no lymphadenopathy noted and no lymphedema noted Resp Resp Narrative: mildly diminished breath sounds bibasally, no wheezes or crackles. On room air. Cardio regular rate, regular rhythm, S1 normal heart sound, S2 normal heart sound and no murmurs GI normal to inspection, nondistended, normoactive bowel sounds, soft to palpation and non-tender Extremity normal capillary refill and no clubbing, cyanosis or edema Extremity Narrative: RUE in sling. Skin Skin Narrative: extensive bruising over right shoulder and RUE. Neuro oriented x3, CN's II-XII intact bilaterally and no focal motor deficits Sensorium / Orientation: awake and alert Motor Exam: general weakness Weight / BMI Weight Weight: 182 lb 1.629 oz Body Mass Index (BMI) 31.2 ABG / Lab / Microbiology Data 10/18/23 05:31 10/18/23 05:31 Laboratory: Laboratory Results - last 24 hr 10/14/23 04:40: Diff Path Review Reviewed 10/17/23 16:14: POC Glucose 266 H 10/17/23 21:44: POC Glucose 192 H 10/18/23 05:31: WBC 9.5, RBC 4.02 L, Hgb 9.9 L, Hct 33.8 L, MCV 84.1, MCH 24.6 L , MCHC 29.3 L, RDW Std Deviation 52.6 H, RDW Coeff of Anali 17.2 H, Plt Count 145 L, MPV 11.5, Immature Gran % (Auto) 1.300 H, Neut % (Auto) 81.1 H, Lymph % (Auto) 7.8 L, Walton % (Auto) 6.3, Eos % (Auto) 3.0, Baso % (Auto) 0.5, Absolute Neuts (auto) 7.7, Absolute Lymphs (auto) 0.74 L, Nucleated RBC % 0, Sodium 141, Potassium 3.3 L, Chloride 112 H, Carbon Dioxide 24.0, Anion Gap 5, BUN 24 H, Creatinine 0.95, Estim Creat Clear Calc 55.65, Est GFR (MDRD) Af Amer 75, Est GFR (MDRD) Non-Af 62, BUN/Creatinine Ratio 25.4 H, Glucose 171 H, Calcium 8.0 L 10/18/23 06:18: POC Glucose 172 H 10/18/23 11:16: POC Glucose 250 H Microbiology: Microbiology 10/18/23 12:35 Nasal Secretion SARS-CoV-2 Antigen (Rapid) - Final 10/12/23 16:59 Blood Culture (Wb) - Anticubital Left Blood Culture - Final No growth in 5 days. 10/12/23 14:45 Blood Culture (Wb) - Anticubital Right Blood Culture - Final No growth in 5 days. 10/12/23 16:05 Urine Catheter - Marcus Urine Culture - Final Escherichia coli D/C Instructions Discharge Diet: Low fat / Low cholesterol Meaningful Use Info Meaningful Use Diagnoses (Choose all that apply): None applicable Discharge Plan Admission Admit Date/Time: 10/12/23 16:33 Primary Reason for Your Visit: right humeral fracture Attending Provider: Viry Boyce Primary Care Provider: Ruel Peoples Consulting Providers: Elayne Baker Instructions Patient Instructions: ED Fracture, Upper Extremity Discharge Orders/Prescriptions Prescriptions: New oxycodone 5 mg Tablet 5 mg PO Q4H PRN PRN (Reason: Pain Score 4-10) 3 Days Qty: 18 0RF Continued meclizine 25 mg tablet 25 mg PO BID hydrochlorothiazide 12.5 mg tablet 12.5 mg PO DAILY citalopram 40 mg tablet 40 mg PO QHS levetiracetam 750 mg tablet extended release 24 hr 750 mg PO DAILY ondansetron HCl 4 mg tablet 4 mg PO Q8H PRN (Reason: Nausea) atorvastatin 20 mg tablet 20 mg PO QHS Spiriva Respimat 2.5 mcg/actuation mist 2 puff inhalation DAILY potassium chloride 20 mEq tablet extended release 20 meq PO DAILY metformin 500 mg tablet 500 mg PO DAILY glipizide 5 mg tablet extended release 24hr 5 mg PO DAILY Jardiance 10 mg tablet 10 mg PO DAILY Patient Comments: pt states she only takes as neeeded leflunomide 20 mg tablet 20 mg PO DAILY pregabalin [Lyrica] 75 mg capsule 75 mg PO DAILY guaifenesin [Mucinex] 600 mg tablet extended release 12hr 600 mg PO BID PRN (Reason: congestion) atomoxetine 80 mg capsule 80 mg PO DAILY venlafaxine 150 mg capsule,extended release 24hr 300 mg PO DAILY prednisone 20 mg tablet 5 mg PO DAILY PRN (Reason: pain) Rx Instructions: x5days metoprolol tartrate 25 mg tablet 25 mg PO BID Qty: 60 11RF Patient Comments: pt states they take once daily fluticasone propion-salmeterol [Advair Diskus] 1 EACH blister with device 1 puff inhalation BID Patient Comments: RINSE AND GARGLE MOUTH WITH WATER AFTER EACH USE. montelukast 10 MG tablet 10 mg PO QHS albuterol sulfate [ProAir HFA] 1 PUFF inhaler 1 - 2 puff inhalation Q4H PRN (Reason: Asthma) losartan 100 mg tablet 100 mg PO QHS amlodipine 10 MG tablet 10 mg PO DAILY quetiapine 100 mg tablet 200 mg PO QHS Patient Comments: pt states she takes 1 at night if needed alprazolam 0.5 mg tablet 0.5 mg PO DAILY PRN (Reason: Anxiety) Rx Instructions: Take 1 tab QAM and 2 tabs at night fluticasone propionate 50 mcg/actuation spray,suspension 1 spray intranasal DAILY PRN (Reason: allergy symptoms) Rx Instructions: administer into each nostril alprazolam 0.5 mg tablet 1 mg PO QHS Rx Instructions: Take 1 tab QAM and 2 tabs at night clopidogrel [Plavix] 75 mg tablet 75 mg PO DAILY aspirin [Adult Low Dose Aspirin] 81 mg tablet,delayed release (DR/EC) 81 mg PO DAILY furosemide 40 mg tablet 40 mg PO DAILY PRN (Reason: edema) Qty: 30 11RF Referrals / Follow Up: Ruel Peoples MD [Primary Care Provider] - Within 1 Week Steven Joyce DO [Med Staff - Active Staff] - Within 2 Weeks Disposition Disposition (needs filled in before D/C Order can be placed): [facility] Facility Charges/Coding Visit Charges Inpatient E&M: 99318 Disch Hosp >30min
--- NOTE | 2023-10-18 13:33 | PHA.DC.MR.R ---
Pharmacy [place] Med Reconciliation Pharmacy Service has performed discharge medication reconciliation for this patient. The patient's discharge medication list was reviewed for discrepancies and discrepancies were resolved. Medications at Discharge Home Medications fluticasone 500 mcg-salmeterol 50 mcg/dose blistr powdr for inhalation (Advair Diskus) 1 puff inhalation BID shortness of breath 01/23/15 albuterol sulfate 90 mcg/actuation aerosol inhaler (ProAir HFA) 1 - 2 puff inhalation Q4H PRN Asthma 04/15/15 montelukast 10 mg tablet 10 mg PO QHS allergies 04/15/15 amlodipine 10 mg tablet 10 mg PO DAILY blood pressure 05/28/15 atorvastatin 20 mg tablet 20 mg PO QHS cholesterol 09/23/22 citalopram 40 mg tablet 40 mg PO QHS sleep 09/23/22 empagliflozin 10 mg tablet (Jardiance) 10 mg PO DAILY diabetes 09/23/22 glipizide 5 mg tablet, extended release 24 hr 5 mg PO DAILY diabetes 09/23/22 hydrochlorothiazide 12.5 mg tablet 12.5 mg PO DAILY blood pressure 09/23/22 leflunomide 20 mg tablet 20 mg PO DAILY inflammation 09/23/22 levetiracetam 750 mg tablet,extended release 24 hr 750 mg PO DAILY seizures 09/23/22 losartan 100 mg tablet 100 mg PO QHS blood pressure 09/23/22 metformin 500 mg tablet 500 mg PO DAILY diabetes 09/23/22 ondansetron HCl 4 mg tablet 4 mg PO Q8H PRN Nausea 09/23/22 potassium chloride 20 mEq tablet,extended release 20 meq PO DAILY potassium 09/23/22 pregabalin 75 mg capsule (Lyrica) 75 mg PO DAILY pain 09/23/22 quetiapine 100 mg tablet 200 mg PO QHS mood disorder 09/23/22 tiotropium bromide 2.5 mcg/actuation mist for inhalation (Spiriva Respimat) 2 puff inhalation DAILY shortness of breath 09/23/22 meclizine 25 mg tablet 25 mg PO BID dizziness 11/26/22 alprazolam 0.5 mg tablet 0.5 mg PO DAILY PRN Anxiety 12/15/22 atomoxetine 80 mg capsule 80 mg PO DAILY attention 12/15/22 venlafaxine 150 mg capsule,extended release 24 hr 300 mg PO DAILY mood 12/15/22 aspirin 81 mg tablet,delayed release (Adult Low Dose Aspirin) 81 mg PO DAILY heart 01/06/23 guaifenesin 600 mg tablet, extended release 12 hr (Mucinex) 600 mg PO BID PRN congestion 04/29/23 metoprolol tartrate 25 mg tablet 25 mg PO BID blood pressure #60 tabs 04/29/23 prednisone 20 mg tablet 5 mg PO DAILY PRN pain 04/29/23 furosemide 40 mg tablet 40 mg PO DAILY PRN edema #30 tabs 06/24/23 alprazolam 0.5 mg tablet 1 mg PO QHS anxiety/sleep 10/12/23 clopidogrel 75 mg tablet (Plavix) 75 mg PO DAILY blood thinner 10/12/23 fluticasone propionate 50 mcg/actuation nasal spray,suspension 1 spray intranasal DAILY PRN allergy symptoms 10/12/23 oxycodone 5 mg tablet 5 mg PO Q4H PRN PRN Pain Score 4-10 3 days #18 tabs 10/18/23
--- NOTE | 2023-10-18 13:53 | CASEMGMT ---
KARMEN called [facility] and arranged for patient to get picked up at 4p via [facility]. SW will send orders once SW has a signed med list. KARMEN did notify RN and digital x ray service engineer of picking machine operator time for patient. KARMEN completed a 7000 in [employer] system. Plan: d/c to [facility] under skilled level of care on a convalescent stay. Physicians will transport patient at 4p. Brigette BYRNE
--- NOTE | 2023-10-18 14:51 | CASEMGMT ---
SW sent d/c orders and scrap picker time to [facility] via [employer]. Plan: d/c to [facility] under skilled level of care on a convalescent stay. Physicians will transport patient. Brigette BYRNE
[2023-10-18 15:30] VITALS: BP 107/62; PULSE 81; RESP 18; TEMP 36.6; O2SAT 94
--- NOTE | 2023-10-18 15:45 | NURSING ---
called report to brian at [facility]
== END 2023-10-18 16:20 | disposition skilled nursing facility (03) | DRG 871 ==
LOC: ED 16:11 → PCU 16:34
PROVIDERS: Admitting Provider Internal Medicine; Emergency Provider Emergency Medicine; PCP Family Medicine; Visit Provider Student in an Organized Health Care Education/Training Program
DX: A41.51 Sepsis due to Escherichia coli [E. coli] (principal); G92.8 Other toxic encephalopathy; N17.9 Acute kidney failure, unspecified; E87.0 Hyperosmolality and hypernatremia; S42.211A Unspecified displaced fracture of surgical neck of right humerus, initial encounter for closed fracture; N39.0 Urinary tract infection, site not specified; E11.9 Type 2 diabetes mellitus without complications; G40.909 Epilepsy, unspecified, not intractable, without status epilepticus; F39 Unspecified mood [affective] disorder; T79.6XXA Traumatic ischemia of muscle, initial encounter; M06.9 Rheumatoid arthritis, unspecified; J45.909 Unspecified asthma, uncomplicated; I10 Essential (primary) hypertension; E78.00 Pure hypercholesterolemia, unspecified; E86.0 Dehydration; E87.6 Hypokalemia; I25.10 Atherosclerotic heart disease of native coronary artery without angina pectoris; G47.33 Obstructive sleep apnea (adult) (pediatric); W18.09XA Striking against other object with subsequent fall, initial encounter; M25.521 Pain in right elbow; M25.561 Pain in right knee; R53.81 Other malaise; Z79.51 Long term (current) use of inhaled steroids; Z79.52 Long term (current) use of systemic steroids; Z79.82 Long term (current) use of aspirin; Z79.84 Long term (current) use of oral hypoglycemic drugs; Z79.02 Long term (current) use of antithrombotics/antiplatelets; Z79.899 Other long term (current) drug therapy; Z95.5 Presence of coronary angioplasty implant and graft; Z23 Encounter for immunization
CPT/HCPCS: 36415; 70450; 72125; 73030; 73080; 73564; 80048; 80053; 81001; 82550; 82962; 83605; 83735; 84484; 85025; 85610; 85730; 87040; 87077; 87086; 87088; 87186; 87426; 90715; 92526; 93005; 94640; 94668; 97110; 97163; 97166; 97530; 97535; 99252; 99285; J7030; J7040; J7120; A4216; G0463

== ENCOUNTER → 2023-11-29 | Outpatient (CLI) | payer MEDICARE, OTHER, SELFPAY ==
--- NOTE | 2023-11-29 17:06 | CT_ITS ---
STUDY: CT RIGHT SHOULDER REASON FOR EXAM: Female, 73 years old. FX UPPER HUMERUS RADIATION DOSAGE (If Supplied By Facility): CTDIvol = ( 24.55 ) mGy, DLP = ( 598.04 ) mGycm TECHNIQUE: The patient was scanned in a multi detector CT scanner. High resolution transaxial imaging was performed without the administration of intravenous contrast material. Sagittal and coronal images were reconstructed. Individualized dose optimization techniques were used for this CT. COMPARISON: Right shoulder x-ray dated October 12, 2023 and November 02, 2023 FINDINGS: No interval healing has occurred at the comminuted humeral head and proximal humeral neck fracture site. A large concave defect persists in the humeral head from prior impaction. Multiple small displaced fragments are relatively unchanged in position since the prior study. Some demonstrate some sclerosis and cortication due to chronicity. There is however no bridging callus formation or matrix. A small amount of callus is seen around the humeral neck, most prominent on the lateral side. Moderate soft tissue density persists at the fracture site likely due to a combination of clotted hemorrhage and joint fluid. The humeral head remains in articulation with the glenoid although slightly inferiorly subluxed and medially rotated. There is mild edema of the deltoid muscle as well as several of the rotator cuff muscles likely related to sequela from the late subacute injury. Normal glenoid rim, neck and visualized scapula. Normal coracoid process. Normal visualized lateral clavicle. There is mild osteoarthritis with articular joint space narrowing. There is a Type II morphology (curved), with a neutral orientation. Reactive subcentimeter right axillary lymphadenopathy is present. No significant abnormality is seen in the included portion of the right lung. CT/Extremity Upper without Contra IMPRESSION: 1. 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
== END | disposition home or self-care (01) ==
PROVIDERS: PCP Family Medicine; Referring Provider Student in an Organized Health Care Education/Training Program; Visit Provider Student in an Organized Health Care Education/Training Program
DX: S42.294A Other nondisplaced fracture of upper end of right humerus, initial encounter for closed fracture (principal); M19.211 Secondary osteoarthritis, right shoulder; X58.XXXA Exposure to other specified factors, initial encounter
CPT/HCPCS: 73200

== ENCOUNTER → 2024-01-23 | Outpatient (CLI) | payer MEDICARE, OTHER, SELFPAY ==
[2024-01-23 17:40] LABS: Absolute Lymphocyte Count 1.35 X10^3/uL (0.83-4.51); Absolute Neutrophil Count 5.7 X10^3/uL (2.0-7.7); Basophil# 0.04 X10^3/uL; Basophil% 0.5 % (0-1); Eosinophil# 0.31 X10^3/uL; Eosinophils% 3.8 % (0-5); Hematocrit 36.4 % (37-47); Hemoglobin 10.5 g/dL (12.0-15.0); Lymphocyte # 1.35 X10^3/ul (0.83-4.51); Lymphocyte % 16.5 % (19-41); Mean Corp Hgb Conc 28.8 g/dL (32-36); Mean Corpuscular Hgb 24.6 pg (27.0-32.0); Mean Corpuscular Volume 85.4 fL (81-99); Mean Platelet Vol. 10.3 fl (6.2-12.0); Monocyte# 0.74 X10^3/uL; Monocyte% 9.1 % (0-10); NRBC Flagged by Analyzer 0 % (0-5); Neutrophil # 5.69 X10^3/uL (2.7-7.7); Neutrophil % 69.7 % (47-70); Platelet Count 287 K/mm3 (150-450); RBC Distribution Width CV 16.8 % (11.6-14.6); RBC Distribution Width SD 52.3 fl (35.1-43.9); Red Blood Count 4.26 M/mm3 (4.2-5.4); White Blood Count 8.2 K/mm3 (4.4-11.0)
[2024-01-23 17:41] LABS: Absolute Lymphocyte Count 1.42 X10^3/uL (0.83-4.51); Absolute Neutrophil Count 5.8 X10^3/uL (2.0-7.7); Basophil# 0.04 X10^3/uL; Basophil% 0.5 % (0-1); Eosinophil# 0.31 X10^3/uL; Eosinophils% 3.7 % (0-5); Hematocrit 36.8 % (37-47); Hemoglobin 10.5 g/dL (12.0-15.0); Lymphocyte # 1.42 X10^3/ul (0.83-4.51); Mean Corp Hgb Conc 28.5 g/dL (32-36); Mean Corpuscular Hgb 24.5 pg (27.0-32.0); Mean Corpuscular Volume 85.8 fL (81-99); Mean Platelet Vol. 10.6 fl (6.2-12.0); Monocyte# 0.77 X10^3/uL; Monocyte% 9.2 % (0-10); NRBC Flagged by Analyzer 0 % (0-5); Neutrophil # 5.76 X10^3/uL (2.7-7.7); Platelet Count 283 K/mm3 (150-450); RBC Distribution Width CV 16.9 % (11.6-14.6); Red Blood Count 4.29 M/mm3 (4.2-5.4); White Blood Count 8.4 K/mm3 (4.4-11.0)
[2024-01-23 17:49] LABS: International Normalized Ratio 1.1; Prothrombin Time (Protime)PT. 14.4 SECONDS (11.7-14.9)
[2024-01-23 17:49] LABS: Partial Thromboplast Time 26.6 Seconds (24.1-36.2)
[2024-01-23 17:50] LABS: Partial Thromboplast Time 27.3 Seconds (24.1-36.2)
[2024-01-23 17:55] LABS: Erythrocyte Sedimentation Rate 32 mm/hr (0-30)
[2024-01-23 18:03] LABS: Vitamin D,25 Hydroxy 33.2 ng/mL
[2024-01-23 18:11] LABS: Albumin, Serum 3.5 g/dL (3.2-5.0)
[2024-01-23 18:15] LABS: AST(SGOT) 12 U/L (15-37); Alanine Aminotransfer ALT/SGPT 14 U/L (13-56); Albumin, Serum 3.4 g/dL (3.2-5.0); Alkaline Phosphatase 97 U/L (45-117); Anion Gap 7 (5-15); BUN 26 mg/dL (7-18); BUN/Creat Ratio 19.4 RATIO (10-20); Chloride 114 mmol/L (98-107); Creatinine, Serum 1.34 mg/dL (0.55-1.02); EST Glomerular Filtration Rate 41 mL/min (>60); Est Glom Filt Rate - Afr Amer 50 mL/min (>60); Globulin 3.5 g/dL (2.2-4.2); Glucose 115 mg/dL (74-106); Potassium 3.8 mmol/L (3.5-5.1); Protein, Total 6.9 g/dL (6.4-8.2); Sodium Level 141 mmol/L (136-145); Thyroid Stim Hormone (TSH) 2.08 uIU/mL (0.358-3.74)
[2024-01-23 18:17] LABS: Magnesium 2.3 mg/dL (1.6-2.6)
[2024-01-26 06:11] LABS: KEPPRA (LEVETIRACETAM) 3.1 ug/mL (10.0-40.0)
== END | disposition home or self-care (01) ==
LOC: MFPLAB 14:55
PROVIDERS: Anesthesiology; Student in an Organized Health Care Education/Training Program; PCP Family Medicine; Visit Provider Family Medicine
DX: Z01.818 Encounter for other preprocedural examination (principal); M06.9 Rheumatoid arthritis, unspecified; N17.9 Acute kidney failure, unspecified; E55.9 Vitamin D deficiency, unspecified; E78.5 Hyperlipidemia, unspecified
CPT/HCPCS: 36415; 80053; 80177; 82040; 82306; 83735; 84443; 85025; 85610; 85652; 85730; 86140; 87077; 87081

== ENCOUNTER 2024-02-07 19:02 | Emergency (ER) | payer MEDICARE, OTHER, SELFPAY ==
[2024-02-07 19:03] VITALS: BP 147/82; PULSE 99; RESP 18; TEMP 36.8; O2SAT 97; BMI 32.4
--- NOTE | 2024-02-07 19:16 | EX.ED.UPPERE ---
HPI History of Present Illness Chief Complaint: Upper Extremity Injury Detail of Chief Complaint: Right shoulder injury Informant: patient Narrative Narrative: Patient presents to the emergency department complaint of injury to the right shoulder. Patient states that she is at the [facility] and they have tall beds. She was getting out of bed and her feet slipped on the rug and she slid down to the ground injuring her right shoulder. She had prior injury to the right shoulder in July 2023 and was scheduled to have surgery on it this week because she had fractured the humerus and had a rotator cuff tear. Patient had a hard time getting up off the floor and she called for help and they helped her up but was having a lot of pain in the right shoulder. Patient is ambidextrous but mostly [id number]. Patient denies striking her head or loss of consciousness. She is not on blood thinners. Patient states she took an oxycodone few minutes prior to EMS bringing her in and does not need anything for pain at this time. [facility] Medical History (Updated 02/07/24 @ 20:[address] Essence Dutta, ) Syncope Fall Fracture of proximal end of right humerus Cataract (lens) fragments in eye following cataract surgery, bilateral MRSA infection Post-menopausal Depression Anxiety History of steroid therapy Diabetes Walker as ambulation aid Ambulates with cane Osteoarthritis Arthritis Easy bruising High cholesterol Restless legs Seizures Blackout Dietary restriction Non-smoker CPAP (continuous positive airway pressure) dependence History of edema History of echocardiogram History of stress test Cardiology follow-up encounter Abnormal stress test Sjogren's disease Sinusitis Sinus arrhythmia Rheumatoid arthritis Obesity Atherosclerotic heart disease of [place] coronary artery without angina pectoris First degree atrioventricular block Other fdc (current) drug therapy Nicotine dependence in remission Post traumatic stress disorder Gout Lyme disease Sleep apnea Hypertension Asthma Home Medications ?Medication ?Instructions ?Recorded ?Last Taken ?Type fluticasone 500 mcg-salmeterol 50 1 puff inhalation BID shortness of 01/23/15 04/17/15 05:15 History mcg/dose blistr powdr for breath inhalation (Advair Diskus) albuterol sulfate 90 mcg/actuation 1 - 2 puff inhalation Q4H PRN 04/15/15 Unknown History aerosol inhaler (ProAir HFA) Asthma montelukast 10 mg tablet 10 mg PO QHS allergies 04/15/15 Unknown History amlodipine 10 mg tablet 10 mg PO DAILY blood pressure 05/28/15 04/05/17 07:15 History 10 MG atorvastatin 20 mg tablet 20 mg PO QHS cholesterol 09/23/22 Unknown History citalopram 40 mg tablet 40 mg PO QHS sleep 09/23/22 Unknown History empagliflozin 10 mg tablet 10 mg PO DAILY diabetes 09/23/22 Unknown History (Jardiance) glipizide 5 mg tablet, extended 5 mg PO DAILY diabetes 09/23/22 Unknown History release 24 hr hydrochlorothiazide 12.5 mg tablet 12.5 mg PO DAILY blood pressure 09/23/22 Unknown History leflunomide 20 mg tablet 20 mg PO DAILY inflammation 09/23/22 Unknown History levetiracetam 750 mg 750 mg PO QHS seizures 09/23/22 Unknown History tablet,extended release 24 hr losartan 100 mg tablet 100 mg PO QHS blood pressure 09/23/22 Unknown History metformin 500 mg tablet 500 mg PO DAILY diabetes 09/23/22 Unknown History ondansetron HCl 4 mg tablet 4 mg PO Q8H PRN Nausea 09/23/22 Unknown History potassium chloride 20 mEq 20 meq PO DAILY potassium 09/23/22 Unknown History tablet,extended release quetiapine 100 mg tablet 200 mg PO QHS mood disorder 09/23/22 Unknown History tiotropium bromide 2.5 2 puff inhalation DAILY shortness 09/23/22 Unknown History mcg/actuation mist for inhalation of breath (Spiriva Respimat) meclizine 25 mg tablet 25 mg PO BID dizziness 11/26/22 Unknown History atomoxetine 80 mg capsule 80 mg PO QHS attention 12/15/22 Unknown History venlafaxine 150 mg 225 mg PO DAILY mood 12/15/22 Unknown History capsule,extended release 24 hr aspirin 81 mg tablet,delayed 81 mg PO DAILY heart 01/06/23 Unknown History release (Adult Low Dose Aspirin) guaifenesin 600 mg tablet, 600 mg PO BID PRN congestion 04/29/23 Unknown History extended release 12 hr (Mucinex) metoprolol tartrate 25 mg tablet 25 mg PO BID blood pressure #60 04/29/23 Unknown Rx tabs prednisone 20 mg tablet 5 mg PO DAILY PRN pain 04/29/23 Unknown History furosemide 40 mg tablet 40 mg PO DAILY PRN edema #30 tabs 06/24/23 Unknown Rx clopidogrel 75 mg tablet (Plavix) 75 mg PO DAILY blood thinner 10/12/23 Unknown History fluticasone propionate 50 1 spray intranasal DAILY PRN 10/12/23 Unknown History mcg/actuation nasal allergy symptoms spray,suspension alprazolam 0.5 mg tablet 0.5 mg PO DAILY PRN Anxiety #10 10/18/23 Unknown Rx tabs alprazolam 1 mg tablet 1 mg PO QHS #20 tabs 10/18/23 Unknown Rx oxycodone 5 mg tablet 5 mg PO Q4H PRN PRN Pain Score 10/18/23 Unknown Rx 4-10 3 days #18 tabs pregabalin 75 mg capsule 75 mg PO BID 01/17/24 Unknown History oxycodone-acetaminophen 5 mg-325 1 tab PO Q6H PRN PRN Pain 3 days 02/07/24 Unknown Rx mg tablet #12 TABLETS Allergy/AdvReac Type Severity Reaction Status Date / Time Sulfa (Sulfonamide Allergy Hives Verified 02/07/24 19:06 Antibiotics) tree nut Allergy Anaphylaxis Verified 02/07/24 19:06 Rabbit AdvReac Severe NEEDS Verified 02/07/24 19:06 FOLLOW-UP sulfamethoxazole (From AdvReac Severe Skin Verified 02/07/24 19:06 Bactrim) rashes & blisters trimethoprim (From Bactrim) AdvReac Severe Skin Verified 02/07/24 19:06 rashes & blisters codeine AdvReac Other Verified 02/07/24 19:06 Environmental Allergies: AdvReac NEEDS Verified 02/07/24 19:06 Uncoded FOLLOW-UP erythromycin base AdvReac Upset Verified 02/07/24 19:06 Stomach milk (dairy) AdvReac Upset Verified 02/07/24 19:06 Stomach morphine AdvReac Nausea Verified 02/07/24 19:06 Family History Mother Diabetes Hypertension Heart disease Father Diabetes Hypertension Heart disease Cancer Brother Heart disease Hypertension Atrial fibrillation Obesity Grandmother AAA (abdominal aortic aneurysm) Grandfather Heart disease Grandmother Cancer Surgical History History of amputation of toe History of coronary artery stent placement History of cardiac catheterization History of knee replacement History of shoulder replacement Stented coronary artery (01/26/23) History of tonsillectomy H/O shoulder surgery History of arthroscopic knee surgery Social History Smoking Status: Never smoker alcohol intake: former substance use type: does not use ROS ROS ED Review of Systems ROS Unobtainable: other Constitutional Constitutional ED: Reports lethargy; Denies chills, fever(s), sweats or weight loss Eyes Eyes: Denies blurry vision, change in vision or diplopia ENT ENT ED: Denies rhinorrhea or sore throat Cardiovascular Cardiovascular: Denies chest pain, orthopnea or racing heartbeat Respiratory/Chest Respiratory/Chest: Denies cough, dyspnea, dyspnea on exertion, orthopnea or sputum Gastrointestinal Gastrointestinal: Denies abdominal pain, diarrhea, nausea or vomiting Genitourinary Genitourinary ED: Denies dysuria, hematuria or urinary frequency Musculoskeletal Musculoskeletal: Reports other Details: Right shoulder pain/injury ; Denies arthralgias, back pain, myalgias or neck pain Integumentary Denies abscess, Abrasions or rash Neurologic Neurologic: Denies headache(s) or weakness Psychiatric Psychiatric: Denies anxiety, depression or suicidal thoughts Endocrine Endocrinology: Denies polydipsia, polyphagia or polyuria Hematologic/Lymphatic Hematologic/Lymphatic: Denies easy bleeding, easy bruising or lymphadenopathy Allergic/Immunologic Allergic/Immunologic ED: Denies mouth swelling, tongue swelling or urticaria EXAM Physical Exam Const Vital Signs: 02/07/24 19:03 Temperature 98.3 F Temperature Source Oral Pulse Rate 99 Respiratory Rate 18 Blood Pressure 147/82 H Blood Pressure Mean 103 Pulse Ox 97 Oxygen Delivery Method Room Air Positive well nourished and well developed General Appearance ED: well developed and NAD HEENT Reports TM's clear and moist mucous membranes normocephalic and atraumatic; Negative for trauma or tenderness Tympanic Membrane ED: Yes TM's clear Eyes PERRL and EOMs intact bilaterally General Eye ED: Negative for pale conjunctiva or scleral icterus Neck no lymphadenopathy, supple and no JVD General: Negative for tenderness Chest Wall inspection of chest normal and palpation of chest normal Chest: Negative for tenderness Resp normal respiratory effort and clear to auscultation bilaterally Effort and Inspection: Negative for respiratory distress or pain with movement Auscultation: Negative for rhonchi, wheezes or diminished lung sounds Cardio regular rate, regular rhythm, S1 normal heart sound, S2 normal heart sound and no murmurs Peripheral Pulses: pulses 2+ throughout GI normal to inspection, nondistended, normoactive bowel sounds, soft to palpation, non-tender, non-distended and no masses Back/Spine no CVA tenderness and no thoracic nor lumbar tenderness Extremity Extremity Narrative: Right shoulder-patient has diffuse tenderness over the glenohumeral joint. No obvious deformity noted. No sulcus sign. Neurovascular intact distally. No pain at the elbow or wrist. No broken skin noted. General Extremety ED: Negative for edema General Extremity: Negative for edema Neuro oriented x3, CN's II-XII intact bilaterally, no sensory deficits noted and gait normal Sensorium / Orientation: awake, alert, oriented to person, oriented to place and oriented to time Motor Exam: strength 5/5 throughout and strength abnormal Psych mental status grossly normal Skin no rashes or lesions noted and no wounds MDM MDM MDM Narrative Medical decision making narrative: Patient presents with injury to right shoulder. She has history of fracture of the right proximal humerus and rotator cuff tear that occurred in July 2023. She was scheduled to have surgery on her shoulder with Dr. Aguillon this week but apparently the surgery was canceled due to a left toe infection and she will need to be cleared by podiatry before she can have surgery as there was concern about infection and possibly osteomyelitis. Patient had repeat x-rays of the right shoulder which showed no new fractures. She has a sling. I will write a prescription for oxycodone for pain. I discussed case with Dr. Aguillon made him aware of patient's injury. Patient will be discharged to home in stable condition. Discharge Plan Triage Chief Complaint: Upper Extremity Injury ED Provider: Essence Dutta Dx/Rx/DC Orders Clinical Impression: Contusion of right shoulder Instructions: ED Shoulder Bruise Prescriptions: New oxycodone-acetaminophen 5-325 mg tablet 1 tab PO Q6H PRN PRN (Reason: Pain) 3 Days Qty: 12 0RF No Action meclizine 25 mg tablet 25 mg PO BID hydrochlorothiazide 12.5 mg tablet 12.5 mg PO DAILY citalopram 40 mg tablet 40 mg PO QHS levetiracetam 750 mg tablet extended release 24 hr 750 mg PO QHS ondansetron HCl 4 mg tablet 4 mg PO Q8H PRN (Reason: Nausea) atorvastatin 20 mg tablet 20 mg PO QHS Spiriva Respimat 2.5 mcg/actuation mist 2 puff inhalation DAILY potassium chloride 20 mEq tablet extended release 20 meq PO DAILY metformin 500 mg tablet 500 mg PO DAILY glipizide 5 mg tablet extended release 24hr 5 mg PO DAILY Jardiance 10 mg tablet 10 mg PO DAILY Patient Comments: pt states she only takes as neeeded leflunomide 20 mg tablet 20 mg PO DAILY guaifenesin [Mucinex] 600 mg tablet extended release 12hr 600 mg PO BID PRN (Reason: congestion) atomoxetine 80 mg capsule 80 mg PO QHS venlafaxine 150 mg capsule,extended release 24hr 225 mg PO DAILY prednisone 20 mg tablet 5 mg PO DAILY PRN (Reason: pain) Rx Instructions: x5days metoprolol tartrate 25 mg tablet 25 mg PO BID Qty: 60 11RF Patient Comments: pt states they take once daily fluticasone propion-salmeterol [Advair Diskus] 1 EACH blister with device 1 puff inhalation BID Patient Comments: RINSE AND GARGLE MOUTH WITH WATER AFTER EACH USE. montelukast 10 MG tablet 10 mg PO QHS albuterol sulfate [ProAir HFA] 1 PUFF inhaler 1 - 2 puff inhalation Q4H PRN (Reason: Asthma) losartan 100 mg tablet 100 mg PO QHS amlodipine 10 MG tablet 10 mg PO DAILY quetiapine 100 mg tablet 200 mg PO QHS Patient Comments: pt states she takes 1 at night if needed fluticasone propionate 50 mcg/actuation spray,suspension 1 spray intranasal DAILY PRN (Reason: allergy symptoms) Rx Instructions: administer into each nostril clopidogrel [Plavix] 75 mg tablet 75 mg PO DAILY oxycodone 5 mg Tablet 5 mg PO Q4H PRN PRN (Reason: Pain Score 4-10) 3 Days Qty: 18 0RF pregabalin 75 mg capsule 75 mg PO BID aspirin [Adult Low Dose Aspirin] 81 mg tablet,delayed release (DR/EC) 81 mg PO DAILY furosemide 40 mg tablet 40 mg PO DAILY PRN (Reason: edema) Qty: 30 11RF alprazolam 0.5 mg tablet 0.5 mg PO DAILY PRN (Reason: Anxiety) Qty: 10 0RF alprazolam 1 mg tablet 1 mg PO QHS Qty: 20 0RF Primary Care Provider: Perry Peoples Referrals: Perry Peoples MD [Primary Care Provider] - Andrew Aguillon DO [Med Staff - Active Staff] - As Needed Print Language: Kyrgyz Disposition Disposition: Home, Self Care
--- NOTE | 2024-02-07 19:30 | RAD_ITS ---
STUDY: X-RAY - RIGHT SHOULDER REASON FOR EXAM: Female, 73 years old. injury TECHNIQUE: 3 view(s) of the shoulder. COMPARISON: November 02, 2023 FINDINGS: Narrowed glenohumeral articulation. Normal acromioclavicular joint. Normal acromion. Incompletely healed impacted old fracture of the humeral neck and head with overlapping of fracture fragments. The soft tissue structures are unremarkable. Normal visualized pulmonary apex. RAD/Shoulder min 2 Views IMPRESSION: Old posttraumatic deformity of the right shoulder and degenerative changes.. Cannot definitively exclude recurrent fracture. CT would be useful for further evaluation Electronically Signed: Ravinder Ruiz MD at 19:56 EDT ,
== END 2024-02-07 20:30 | disposition home or self-care (01) ==
PROVIDERS: Emergency Provider Emergency Medicine; PCP Family Medicine; Visit Provider Emergency Medicine
DX: S40.011A Contusion of right shoulder, initial encounter (principal); E11.9 Type 2 diabetes mellitus without complications; W06.XXXA Fall from bed, initial encounter; Y92.59 Other trade areas as the place of occurrence of the external cause; I10 Essential (primary) hypertension; E78.00 Pure hypercholesterolemia, unspecified; Z79.82 Long term (current) use of aspirin; Z79.84 Long term (current) use of oral hypoglycemic drugs; Z79.02 Long term (current) use of antithrombotics/antiplatelets; Z79.899 Other long term (current) drug therapy
CPT/HCPCS: 73030; 99282

== ENCOUNTER → 2024-02-20 | Outpatient (CLI) | payer MEDICARE, OTHER, SELFPAY | END | disposition home or self-care (01) | PROVIDERS: PCP Family Medicine; Visit Provider Podiatrist Foot & Ankle Surgery | DX: T81.30XA Disruption of wound, unspecified, initial encounter (principal) | CPT/HCPCS: 87070; 87075; 87101; 87205 ==

== ENCOUNTER → 2024-03-01 | Outpatient (CLI) | payer MEDICARE, OTHER, SELFPAY ==
--- NOTE | 2024-03-01 | AMP_PTH ---
PATIENT: REE WYLIE LOC: [facility] U#:[id number] AGE/SX: 73/F ROOM: RE03/01/[address]: Dr. Magan Dela Cruz DPM : 1950 BED: DIS: 03/01/2024 SPEC #: [id number] RECD: 03/02/24 09:15 STATUS: BROOKE REGonzález #: [id number] ANY: 03/01/24 00:[address]: Magan Dela Cruz DEPT: SURGICAL PATHOLOGY RECD BY: Vincent Dejesus ENTERED: 03/02/24 09:16 SP TYPE: Amputation OTHR DR: Dr. Perry Peoples MD Tissues: Toe, NOS Procedures: Decalcification bone/plaque Surgery Specimen Level IV HEADER OPERATION: Pathology left 3rd digit PRE-OP DIAGNOSIS: Osteomyelitis, left third digit TISSUE SUBMITTED: Left 3rd digit MICROSCOPIC DIAGNOSIS Left 3rd digit, amputation: Acute and chronic inflammation and granulation tissue reaction. Bone with acute osteomyelitis. See comment. / 03/07/2024 COMMENT Pieces of bone also show granulation tissue reaction. MICROSCOPIC DESCRIPTION Slides are reviewed. GROSS DESCRIPTION Received in fixative is one container labeled with the patient's name and designated Left foot third toe. The specimen consists of a portion of toe measuring 3.0 x 2.0 x 1.5cm. Nail is present and appears unremarkable. Present in the container are pieces of skin and soft tissue measuring in aggregate 4.0 x 1.5 x 0.5cm. Also present in the container is a detached piece of bone measuring 3.0 x 1.0 x 1.0cm. Mover Helper sections are submitted in three cassettes as follows: 1- detached pieces of tissue and skin, 2&3- bone after decalcification. [facility] 03/02/2024 TC:2 CPT:48270,79511
== END | disposition home or self-care (01) ==
LOC: LABSPEC 16:47
PROVIDERS: PCP Family Medicine; Referring Provider Podiatrist Foot & Ankle Surgery; Visit Provider Podiatrist Foot & Ankle Surgery
DX: M86.172 Other acute osteomyelitis, left ankle and foot (principal)
CPT/HCPCS: 88305; 88311

== ENCOUNTER → 2024-04-02 | Outpatient (CLI) | payer MEDICARE, OTHER, SELFPAY ==
--- NOTE | 2024-04-02 15:46 | BI_ITS ---
MAMMOGRAPHY - BILATERAL SCREENING REASON FOR EXAM: Female, 73 years old. Routine annual screening examination. PERTINENT HISTORY: Non-contributory. TECHNIQUE: Digital bilateral breast wan (3D mammographic acquisition) in the CC and MLO projections. 2-D mediolateral oblique (MLO) and craniocaudad (CC) views of both breasts were obtained. CAD: Full Field Digital Mammography with Computer Added Detection was performed. COMPARISON: Comparison is made with prior study dated December 29, 2022 and December 09, 2021. FINDINGS: Breast Composition: The breasts are heterogeneously dense, which may obscure small masses. There are no dominant masses or suspicious calcifications. Stable scattered bilateral calcifications. No focal cluster is seen. No other significant abnormalities are identified. There has been no significant change since the prior study. BI/SCRN MAMM (CAD)W/WAN BILAT IMPRESSION: Stable bilateral screening mammogram. Yearly follow-up mammogram recommended. (A) ASSESSMENT CATEGORY: BIRADS Category 2: Benign. A letter regarding these results will be sent to the patient by the facility within 30 days. Approximately 10% of breast cancers are not detected by mammography. A normal mammogram should not delay biopsy of a clinically suspicious abnormality. [id number] Electronically Signed: Hung Graham MD at 8:24 EDT ,
== END | disposition home or self-care (01) ==
PROVIDERS: PCP Family Medicine; Referring Provider Family Medicine; Visit Provider Family Medicine
DX: Z12.31 Encounter for screening mammogram for malignant neoplasm of breast (principal)
CPT/HCPCS: 77063; 77067

== ENCOUNTER 2024-04-05 11:48 | Outpatient (RCR) | payer MEDICARE, OTHER, SELFPAY ==
--- NOTE | 2024-04-05 13:10 | HP.PTEVAL ---
Patient's Visit Information Visit Information Visit Information: REE WYLIE is a 73 year old F referred to Physical Therapy by Radha Moore MD with a diagnosis of LEFT HIP PAIN AND LEFT LEG PAIN. Date of Evaluation: 04/05/24 Physical Therapist: Laith Castellano, PT, Cert MDT, OCS Visit Plan Frequency: 2x /Week Duration: 4 Weeks Plan: PT INTERVENTIONS BLE STRENGTHENING ,FUNCTIONAL STRENGTHENING ,PROGRESSIVE BALANCE TRAINING, AND ENDURANCE AEROBIC EX'S Subjective Subjective: This 73 y/o female presents to physical therapy with left hip and leg pain. Patient has had hip and leg pain since . Patient had syncope episode thus was in Hospital [facility] due to multiple complexity medically septic UTI ~ 2 weeks . Once become medical stable, then transferred to [facility] . Patient seen DR Berry in October needs a Reverse TSR right. Patient has weakness in left leg and impaired balance. Patient has difficulty with ADLS and housework tasks . Denies paresthesia/tingling. Aggravating factors walking/standing ,unable to squat or kneel. Alleviating factors sitting Patient lives in 2 story stays on 1st floor. Patient has 2 steps . Patient has Tub shower set up.. Patient is able to dress self. Patient has meals on wheels. Patient use cane for gait. Patient has had prior PT in past .Patient has multiple complexity issues which influences condition. Patient goals to get stronger. RTD in 2weeks. No recent imaging SOCIAL : lives alone Objective Objective: POSTURE : mild forward posture ,hip/knees flexed NEURO: denies paresthesia/tingling ,reflexes L3-4,L4-5 ,.L5-S1 1/3 ,supine -sit some dizziness PALAPTION: unremarkable GAIT: ambulates with straight cane slow vitor FLEXABILITY: hamstring MIN tight PROM: hip flexion 110 degrees ,hip IR 30 degrees LUMBAR ROM: flexion mod loss ,extension mod loss ,side glid,es mod loss MMT: ( peak force) quads right 23.8 ,left 17.8 ,hamstrings right 21.1 ,left 14.6 ,hip flexion left 13.8 ,right 17.2 Special Tests L/S Slump test left side: Negative L/S Slump test right side: Negative L/S Left Straight Leg Raise: Negative L/S Right Straight Leg Raise: Negative L Hip Scour: Negative L Hip TOMAS - Intraarticular Pathology: Negative L Hip Impingement Provocation - Labrum: Negative L Hip Trendelenberg - Glut Medius: Negative L Hip Razia - IT Band: Negative L Hip Resisted Exernal Derotation Test - GT Pain Syndrome: Negative Balance/Special Test Scores Functional Gait Assessment Score: 11 % Disability: 63.3400 CATSIB Score (Max score 120 seconds): 55 Lower Extremity Functional Score: 22 Goals Goal 1:: Patient to be I with HEP. Goal Time Frame: 4-6 Weeks Goal 2:: Patient to peak force BLE by 5-10 # to improve function Goal Time Frame: 4-6 Weeks Goal 3:: Patient to improve LFES score by 5 points > to improve QOL Goal Time Frame: 4-6 Weeks Goal 4:: Patient to improve CATSIB by 5 points to improve balance Goal Time Frame: 4-6 Weeks Goal 5:: Patient to improve functional gait assessment score by 5 points to improve balance /gait Goal Time Frame: 4-6 Weeks Goal 6:: Patient to demonstrate 50 % improvement with improve function and gait Goal Time Frame: 4-6 Weeks Rehabilitation Potential Physical Therapy Diagnosis: This patient has weakness in BLE and balance deficits with multiple complexity issues influences condition with decrease gait and affects ADLS Rehabilitation Potential: Good Anticipated Interventions Patient/Client Instruction: Educate patient on: Condition and Plan of Care For the Purpose of:: To decrease pain, To increase ROM, To improve muscle performance and motor function, To improve ability to perform ADL's, To increase tolerance to activity/condition/position, To improve performance and independence with ADL's, To improve ability of physical actions for home/community/work/leisure, To improve gait and locomotor functions, To increase flexibility/ROM, To improve endurance, To improve balance and To improve health and function Therapeutic Exercise to Include: Strength training, Endurance training, Balance training and Postural training Comment: BLE For the Purpose of:: To decrease pain, To increase ROM, To improve muscle performance and motor function, To improve ability to perform ADL's, To increase tolerance to activity/condition/position, To improve ability of physical actions for home/community/work/leisure, To improve gait and locomotor functions, To improve endurance, To improve balance and To improve tolerance to ADL's Text: Thank you for the opportunity to evaluate your patient. For Medicare and Medicare HMO plans, please review the plan of care and approve it. It will need to be FAXED BACK to us at [phone] for Medicare purposes. For Medicare only, by signing this I certify the plan of care. Please let me know if there are questions or concerns regarding this plan of care. Physician Signature: Date:
--- NOTE | 2024-07-31 16:04 | HP.PTDCNRP_ITS ---
Patient Information Patient Information: REE WYLIE was seen in my office for initial evaluation on 04/05/24. The following Plan of Care was established for this patient: POC Established Initial Frequency: 2x /Week Initial Duration: 4 Weeks Anticipated Interventions Patient/Client Instruction: Educate patient on: Condition and Plan of Care For the Purpose of:: To decrease pain, To increase ROM, To improve muscle performance and motor function, To improve ability to perform ADL's, To increase tolerance to activity/condition/position, To improve performance and i ndependence with ADL's, To improve ability of physical actions for home/community/work/leisure, To improve gait and locomotor functions, To increase flexibility/ROM, To improve endurance, To improve balance and To improve health and function Therapeutic Exercise to Include: Strength training, Endurance training, Balance training and Postural training For the Purpose of:: To decrease pain, To increase ROM, To improve muscle performance and motor function, To improve ability to perform ADL's, To increase tolerance to activity/condition/position, To improve ability of physical actions for home/community/work/leisure, To improve gait and locomotor functions, To improve endurance, To improve balance and To improve tolerance to ADL's Last Seen Last Seen: This patient was last seen in our office . Pertinent comments regarding their Physical therapy will appear below: Patient was seen For PT eval hip and leg pain for HEP but did not return At this point I will be discontinuing this patient from physical therapy. I would be happy to see this patient again in the future if found appropriate by the physician. Thank you! Laith Castellano, PT, Cert MDT, OCS Balance/Gait/Functional tests Balance/Special Test Scores Functional Gait Assessment Score: 11 % Disability: 63.3400 CATSIB Score (Max score 120 seconds): 55 Lower Extremity Functional Score: 22
== END 2024-04-05 19:00 | disposition home or self-care (01) ==
LOC: PT 11:48
PROVIDERS: PCP Family Medicine; Referring Provider Family Medicine; Visit Provider Family Medicine
DX: M25.552 Pain in left hip (principal); M79.605 Pain in left leg
CPT/HCPCS: 97110; 97162

== ENCOUNTER → 2024-05-01 | Outpatient (CLI) | payer MEDICARE, OTHER, SELFPAY ==
--- NOTE | 2024-05-01 11:02 | ECHOD_ITS ---
Reason For Study: Murmur Procedure This was a 2D Doppler, Color Flow transthoracic echocardiogram. Exam performed in department. Left Ventricle Normal LV size. Left ventricular systolic function is normal. The left ventricular ejection fraction is 70 %. No regional wall motion abnormalities noted. Right Ventricle Normal RV size. Normal systolic function. Atria The left atrium is mildly enlarged. Normal right atrium. Mitral Valve Normal mitral valve. Tricuspid Valve Normal tricuspid valve. Mild to moderate (1-2+) tricuspid valve insufficiency. Pulmonary artery systolic pressure is 40 mmHg. Aortic Valve Trisinus/trileaflet aortic valve. Mild focal aortic valve calcification. Pulmonic Valve Normal pulmonic valve. Great Vessels Normal aortic root. The pulmonary artery is normal size. Normal inferior vena cava. Pericardium/Pleural No pericardial effusion. MMode/2D Measurements & Calculations LVIDd: 4.7 cm IVSd: 1.2 cm LVOT diam: 2.0 cm LVIDs: 3.1 cm LVPWd: 1.1 cm LVOT area: 3.1 cm2 RVDd: 3.5 cm FS: 34.2 % Ao root diam: 3.2 cm LAV(MOD-bp): 74.5 ml LVAd ap4: 23.6 cm2 ACS: 0.98 cm LAV(MOD-bp) Indexed: 39.7 ml/m2 LVLd ap4: 7.1 cm LA dimension: 4.0 cm LAV(MOD-sp2): 55.9 ml EDV(MOD-sp4): 64.8 ml LAV(MOD-sp4): 79.0 ml EDV(sp4-el): 66.6 ml LVAs ap4: 11.5 cm2 LVLs ap4: 5.9 cm ESV(MOD-sp4): 19.0 ml ESV(sp4-el): 19.0 ml EF(MOD-sp4): 70.6 % EF(sp4-el): 71.5 % SV(MOD-sp4): 45.7 ml SV(sp4-el): 47.6 ml Aortic Valve Planimetry: 1.1 cm2 LA A4 area: 25.1 cm2 RA A4 area: 16.6 cm2 TAPSE: 2.2 cm Time Measurements MV dec time: 0.19 sec Doppler Measurements & Calculations MV E max vin: 95.7 cm/sec Lat Peak E' Vin: 6.1 cm/sec Med Peak E' Vin: 8.5 cm/sec MV A max vin: 88.4 cm/sec E/E' lat: 15.7 E/E' med: 11.2 MV E/A: 1.1 MV V2 max: 93.9 cm/sec MV P1/2t max vin: 89.8 cm/sec Ao V2 max: 303.5 cm/sec MV max P.5 mmHg MV P1/2t: 61.9 msec Ao max P.9 mmHg MV V2 mean: 58.6 cm/sec Ao V2 mean: 216.8 cm/sec MV mean P.6 mmHg MV dec slope: 425.0 cm/sec2 Ao mean P.0 mmHg MV V2 VTI: 30.4 cm MVA(P1/2t): 3.6 cm2 Ao V2 VTI: 76.8 cm AV (velocity ratio): 0.39 MVA(VTI): 3.0 cm2 SHELLEY(I,D): 1.2 cm2 SHELLEY(V,D): 1.2 cm2 LV V1 max: 118.3 cm/sec SV(LVOT): 92.4 ml PA V2 max: 94.1 cm/sec LV V1 max P.6 mmHg PA max PG (full): 0.98 mmHg LV V1 mean P.5 mmHg PA V2 mean: 66.0 cm/sec LV V1 mean: 89.8 cm/sec PA mean PG (full): 0.33 mmHg LV V1 VTI: 30.0 cm TR max vin: 300.6 cm/sec TR max P.2 mmHg ECHO/Echo Complete Interpretation Summary Normal LV size. Left ventricular systolic function is normal. The left ventricular ejection fraction is 70 %. Mild focal aortic valve calcification. Ordering Physician: Barbara Beth Referring Physician: Barbara Beth Performed By: Neto Rutherford RCS
== END | disposition home or self-care (01) ==
PROVIDERS: PCP Family Medicine; Referring Provider Nurse Practitioner Gerontology; Visit Provider Nurse Practitioner Gerontology
DX: R01.1 Cardiac murmur, unspecified (principal)
CPT/HCPCS: 93306

== ENCOUNTER → 2024-05-16 | Outpatient (CLI) | payer MEDICARE, OTHER, SELFPAY ==
[2024-05-16 17:28] LABS: Absolute Lymphocyte Count 1.47 X10^3/uL (0.83-4.51); Basophil# 0.05 X10^3/uL; Basophil% 0.7 % (0-1); Eosinophil# 0.34 X10^3/uL; Eosinophils% 4.6 % (0-5); Hematocrit 43.5 % (37-47); Hemoglobin 13.3 g/dL (12.0-15.0); Lymphocyte # 1.47 X10^3/ul (0.83-4.51); Lymphocyte % 19.8 % (19-41); Mean Corp Hgb Conc 30.6 g/dL (32-36); Mean Corpuscular Hgb 25.5 pg (27.0-32.0); Mean Corpuscular Volume 83.3 fL (81-99); Monocyte% 8.1 % (0-10); NRBC Flagged by Analyzer 0 % (0-5); Neutrophil # 4.95 X10^3/uL (2.7-7.7); Neutrophil % 66.4 % (47-70); Platelet Count 253 K/mm3 (150-450); RBC Distribution Width CV 15.1 % (11.6-14.6); RBC Distribution Width SD 45.7 fl (35.1-43.9); Red Blood Count 5.22 M/mm3 (4.2-5.4); White Blood Count 7.4 K/mm3 (4.4-11.0)
[2024-05-16 17:45] LABS: Vitamin D,25 Hydroxy 27.8 ng/mL
[2024-05-16 17:52] LABS: ALB/GLOB Ratio 1.1 RATIO (0.9-2.4); AST(SGOT) 20 U/L (15-37); Alanine Aminotransfer ALT/SGPT 28 U/L (13-56); Albumin, Serum 3.7 g/dL (3.2-5.0); Alkaline Phosphatase 100 U/L (45-117); Anion Gap 7 (5-15); BUN 28 mg/dL (7-18); BUN/Creat Ratio 25.9 RATIO (10-20); Calcium,Total 9.4 mg/dL (8.5-10.1); Chloride 109 mmol/L (98-107); Creatinine, Serum 1.08 mg/dL (0.55-1.02); EST Glomerular Filtration Rate 53 mL/min (>60); Est Glom Filt Rate - Afr Amer 64 mL/min (>60); Globulin 3.5 g/dL (2.2-4.2); Glucose 110 mg/dL (74-106); International Normalized Ratio 1.1; Partial Thromboplast Time 25.7 Seconds (24.1-36.2); Potassium 4.3 mmol/L (3.5-5.1); Protein, Total 7.2 g/dL (6.4-8.2); Sodium Level 140 mmol/L (136-145)
== END | disposition home or self-care (01) ==
LOC: MFPLAB 15:10
PROVIDERS: PCP Family Medicine; Visit Provider Family Medicine
DX: Z01.818 Encounter for other preprocedural examination (principal); E55.9 Vitamin D deficiency, unspecified
CPT/HCPCS: 36415; 80053; 82306; 84443; 85025; 85610; 85730

== ENCOUNTER → 2024-07-25 | Outpatient (CLI) | payer MEDICARE, OTHER, SELFPAY ==
[2024-07-25 15:21] LABS: Absolute Neutrophil Count 3.5 X10^3/uL (2.0-7.7); Basophil# 0.06 X10^3/uL; Basophil% 0.9 % (0-1); Eosinophil# 0.33 X10^3/uL; Eosinophils% 5.1 % (0-5); Hematocrit 42.1 % (37-47); Hemoglobin 12.8 g/dL (12.0-15.0); Lymphocyte % 29.3 % (19-41); Mean Corp Hgb Conc 30.4 g/dL (32-36); Mean Corpuscular Hgb 25.5 pg (27.0-32.0); Mean Platelet Vol. 10.6 fl (6.2-12.0); Monocyte# 0.65 X10^3/uL; NRBC Flagged by Analyzer 0 % (0-5); Neutrophil # 3.46 X10^3/uL (2.7-7.7); Neutrophil % 53.3 % (47-70); Platelet Count 235 K/mm3 (150-450); RBC Distribution Width CV 16.5 % (11.6-14.6); RBC Distribution Width SD 50.1 fl (35.1-43.9); Red Blood Count 5.01 M/mm3 (4.2-5.4); White Blood Count 6.5 K/mm3 (4.4-11.0)
[2024-07-25 15:53] LABS: AST(SGOT) 17 U/L (15-37); Alanine Aminotransfer ALT/SGPT 28 U/L (13-56); Albumin, Serum 3.6 g/dL (3.2-5.0); Alkaline Phosphatase 95 U/L (45-117); Anion Gap 9 (5-15); BUN 30 mg/dL (7-18); BUN/Creat Ratio 24.2 RATIO (10-20); Chloride 106 mmol/L (98-107); Cholesterol 145 mg/dL (200); Creatinine, Serum 1.24 mg/dL (0.55-1.02); EST Glomerular Filtration Rate 45 mL/min (>60); Est Glom Filt Rate - Afr Amer 55 mL/min (>60); Globulin 3.7 g/dL (2.2-4.2); Glucose 108 mg/dL (74-106); High Density Lipoprotein 56 mg/dL; Potassium 4.5 mmol/L (3.5-5.1); Protein, Total 7.3 g/dL (6.4-8.2); Sodium Level 136 mmol/L (136-145); Triglycerides 147 mg/dL; Very Low Density Lipoprotein 29 mg/dL (5-40)
== END | disposition home or self-care (01) ==
LOC: MFPLAB 11:55
PROVIDERS: PCP Family Medicine; Referring Provider Family Medicine; Visit Provider Family Medicine
DX: I10 Essential (primary) hypertension (principal)
CPT/HCPCS: 36415; 80053; 80061; 84443; 85025

== ENCOUNTER → 2024-10-09 | Outpatient (CLI) | payer MEDICARE, OTHER, SELFPAY ==
[2024-10-09 18:29] LABS: Uric Acid 7.4 mg/dL (2.6-6.0)
== END | disposition home or self-care (01) ==
LOC: MFPLAB 15:31
PROVIDERS: PCP Family Medicine; Referring Provider Family Medicine; Visit Provider Family Medicine
DX: M25.572 Pain in left ankle and joints of left foot (principal)
CPT/HCPCS: 36415; 84550

== ENCOUNTER 2024-11-26 12:13 | Observation (INO) | payer MEDICARE, OTHER, SELFPAY ==
--- NOTE | 2024-11-09 12:18 | PAT.ANESEVAL ---
Pre-Assessment Diagnosis/Proposed Procedure Planned Operative Procedure(s): (R) RIGHT REVERSE TOTAL SHOULDER ARTHROPLASTY, ERAS Anesthesia History Anesthesia History - cloud developer: Anesthesia History - cloud developer Hx Hospitalization No 10/31/24 13:16 Any Problems With Anesthesia Yes: SLOW TO WAKE UP 10/31/24 13:16 Cholinesterase deficiency No 10/31/24 13:16 You/Your Family Experience No 10/31/24 13:16 fever (hyperthermia) with Relationship Recent Exposure to Contagious No 10/18/23 15:51 Disease Does patient have nerve No 10/31/24 13:16 stimulator Patient instructed to have device shut off --Does patient have Pacemaker or ICD? When Was Last Pacemaker Check QUESTION #4 FULL TEXT: You/Your Family Experience fever (hyperthermia) with Anesthesia Last Oral Intake Last Oral intake: Last Oral Intake NPO since Meds taken in AM with sips of water? Meds patient instructed to take am of surgery PONV PONV - cloud developer: PONV - cloud developer Female Yes 10/31/24 13:16 HX of Motion Sickness Yes 10/31/24 13:16 HX of N/V After Surgery No 10/31/24 13:16 Non-Smoker Yes 10/31/24 13:16 Duration of Surgery greater Yes 10/31/24 13:16 than 60 minutes Number of Risk Factors 4 10/31/24 13:16 PONV Score Severe Risk 10/31/24 13:16 Height & Weight Height & Weight: Anesthesia: Height & Weight Height 5 ft 4 in 03/28/24 11:32 Respiratory Assessment Respiratory Assessment - cloud developer: Respiratory Tract Infection Hx - cloud developer Hx Respiratory Tract Infection No 10/31/24 13:16 STOP Sleep Apnea STOP Sleep Apnea - cloud developer: STOP Sleep Apnea - cloud developer Hx Hypertension Yes: CONTROLLED WITH MEDS 10/31/24 13:16 Hx Sleep Apnea Yes 10/31/24 13:16 CPAP Yes 10/31/24 13:16 BIPAP No 10/31/24 13:16 Do you snore loudly (louder than talking or can be heard Do you often feel tired/ fatigued/ sleepy during daytime? Has anyone observed you stop breathing during sleep? STOP Results Positive 10/31/24 13:16 QUESTION #5 FULL TEXT : Do you snore loudly (louder than talking or can be heard through closed doors)? 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 Specify any problems Hx of Preganancy in last 3 N/A 10/31/24 13:16 Months Nurse Filling Out Transfusion NBUCHER 10/31/24 13:16 & Questions: Date: 10/31/24 10/31/24 13:16 Time: 13:20 10/31/24 13:16 Patient unable to answer at this time (ie. confused, unrespo /Reproduction History /Reproductive History - cloud developer: /Reproductive Hx- cloud developer Hx Now Gestational Age (in weeks): EDC: Hx Hx Para Hx Section SAB No 10/31/24 13:16 PFSH Medical History Shingles Discoloration of skin Kidney stones Injury of back Injury of head and neck Shortness of breath on exertion Syncope Fall Fracture of proximal end of right humerus Cataract (lens) fragments in eye following cataract surgery, bilateral MRSA infection Post-menopausal Depression Anxiety History of steroid therapy Diabetes Walker as ambulation aid Ambulates with cane Osteoarthritis Arthritis Easy bruising High cholesterol Restless legs Seizures Blackout Dietary restriction Non-smoker CPAP (continuous positive airway pressure) dependence History of edema History of echocardiogram History of stress test Cardiology follow-up encounter Abnormal stress test Sjogren's disease Sinusitis Sinus arrhythmia Rheumatoid arthritis Obesity Atherosclerotic heart disease of [place] coronary artery without angina pectoris First degree atrioventricular block 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 Nicotine dependence in remission Post traumatic stress disorder Gout Lyme disease Sleep apnea Hypertension Asthma Home Medications ?Medication ?Instructions ?Recorded ?Last Taken ?Type fluticasone 500 mcg-salmeterol 50 1 puff inhalation BID shortness of 01/23/15 04/17/15 05:15 History mcg/dose blistr powdr for breath inhalation (Advair Diskus) albuterol sulfate 90 mcg/actuation 1 - 2 puff inhalation Q4H PRN 04/15/15 Unknown History aerosol inhaler (ProAir HFA) Asthma montelukast 10 mg tablet 10 mg PO QHS allergies 04/15/15 Unknown History amlodipine 10 mg tablet 10 mg PO DAILY blood pressure 05/28/15 04/05/17 07:15 History 10 MG atorvastatin 20 mg tablet 20 mg PO QHS cholesterol 09/23/22 Unknown History citalopram 40 mg tablet 30 mg PO QHS sleep 09/23/22 Unknown History empagliflozin 10 mg tablet 10 mg PO DAILY diabetes 09/23/22 Unknown History (Jardiance) hydrochlorothiazide 12.5 mg tablet 12.5 mg PO DAILY blood pressure 09/23/22 Unknown History leflunomide 20 mg tablet 20 mg PO DAILY inflammation 09/23/22 Unknown History levetiracetam 750 mg 750 mg PO QHS seizures 09/23/22 Unknown History tablet,extended release 24 hr losartan 100 mg tablet 100 mg PO QHS blood pressure 09/23/22 Unknown History metformin 500 mg tablet 500 mg PO DAILY diabetes 09/23/22 Unknown History ondansetron HCl 4 mg tablet 4 mg PO Q8H PRN Nausea 09/23/22 Unknown History potassium chloride 20 mEq 20 meq PO DAILY potassium 09/23/22 Unknown History tablet,extended release quetiapine 100 mg tablet 200 mg PO QHS mood disorder 09/23/22 Unknown History tiotropium bromide 2.5 2 puff inhalation DAILY shortness 09/23/22 Unknown History mcg/actuation mist for inhalation of breath (Spiriva Respimat) meclizine 25 mg tablet 25 mg PO BID dizziness 11/26/22 Unknown History venlafaxine 150 mg 225 mg PO DAILY mood 12/15/22 Unknown History capsule,extended release 24 hr aspirin 81 mg tablet,delayed 81 mg PO DAILY heart 01/06/23 Unknown History release (Adult Low Dose Aspirin) guaifenesin 600 mg tablet, 600 mg PO BID PRN congestion 04/29/23 Unknown History extended release 12 hr (Mucinex) prednisone 20 mg tablet 5 mg PO DAILY PRN pain 04/29/23 Unknown History fluticasone propionate 50 1 spray intranasal DAILY allergy 10/12/23 Unknown History mcg/actuation nasal symptoms spray,suspension alprazolam 0.5 mg tablet 0.5 mg PO DAILY PRN Anxiety #10 10/18/23 Unknown Rx tabs alprazolam 1 mg tablet 1 mg PO QHS #20 tabs 10/18/23 Unknown Rx pregabalin 75 mg capsule 75 mg PO BID 01/17/24 Unknown History metoprolol tartrate 25 mg tablet 25 mg PO BID #180 tabs 05/30/24 Unknown Rx furosemide 40 mg tablet 20 mg (1/2 x 40 mg) PO DAILY PRN 07/16/24 Unknown Rx edema #30 tabs Allergy/AdvReac Type Severity Reaction Status Date / Time lactose Allergy Severe Vomiting Verified 11/08/24 15:06 Sulfa (Sulfonamide Allergy Hives Verified 11/08/24 15:06 Antibiotics) tree nut Allergy Anaphylaxis Verified 11/08/24 15:06 Rabbit AdvReac Severe NEEDS Verified 11/08/24 15:06 FOLLOW-UP sulfamethoxazole (From AdvReac Severe Skin Verified 11/08/24 15:06 Bactrim) rashes & blisters trimethoprim (From Bactrim) AdvReac Severe Skin Verified 11/08/24 15:06 rashes & blisters codeine AdvReac Other Verified 11/08/24 15:06 Environmental Allergies: AdvReac NEEDS Verified 11/08/24 15:06 Uncoded FOLLOW-UP erythromycin base AdvReac Upset Verified 11/08/24 15:06 Stomach milk (dairy) AdvReac Upset Verified 11/08/24 15:06 Stomach morphine AdvReac Nausea Verified 11/08/24 15:06 Family History Mother Diabetes Hypertension Heart disease Father Diabetes Hypertension Heart disease Cancer Brother Heart disease Hypertension Atrial fibrillation Obesity Grandmother AAA (abdominal aortic aneurysm) Grandfather Heart disease Grandmother Cancer Surgical History Hx of toe surgery History of amputation of toe History of coronary artery stent placement History of cardiac catheterization History of knee replacement History of shoulder replacement Stented coronary artery (01/26/23) History of tonsillectomy H/O shoulder surgery History of arthroscopic knee surgery Social History Smoking Status: Never smoker alcohol intake: former substance use type: does not use Audit: Pertinent Findings Pertinent Findings EKG Perinent findings: 11/08/24: Sinus Rhythm First degree A-V block Sergio Nonspecific T-abnormality. Low voltage with rightward P-axis and rotation -possible pulmonary disease. Echo (EF%) pertinent findings: Echo (05/01/24) Normal LV size. Left ventricular systolic function is normal. The left ventricular ejection fraction is 70 %. No regional wall motion abnormalities noted. Heart catheterization pertinent findings: status post stent to her mLCx on 01/26/2023 Consult pertinent findings: Cardiology Visit (11/08/24): She appears stable at this time, and denies any recent symptoms or events. She will continue aspirin 81 mg daily, atorvastatin 20 mg daily, and metoprolol tartrate 25 mg daily. She will continue with aggressive risk factor and lifestyle modifications, as well as monitoring for any concerning symptoms. Recommendation Anesthesia Recommendation Anesthesia recommendation: OPTIMIZED for anesthesia
[2024-11-17 11:42] LABS: Absolute Lymphocyte Count 1.54 X10^3/uL (0.83-4.51); Absolute Neutrophil Count 3.8 X10^3/uL (2.0-7.7); Basophil# 0.06 X10^3/uL; Basophil% 0.9 % (0-1); Eosinophil# 0.41 X10^3/uL; Eosinophils% 6.4 % (0-5); Hematocrit 43.7 % (37-47); Hemoglobin 13.7 g/dL (12.0-15.0); Lymphocyte # 1.54 X10^3/ul (0.83-4.51); Mean Corp Hgb Conc 31.4 g/dL (32-36); Mean Corpuscular Volume 83.1 fL (81-99); Monocyte# 0.57 X10^3/uL; Monocyte% 8.9 % (0-10); NRBC Flagged by Analyzer 0 % (0-5); Neutrophil # 3.79 X10^3/uL (2.7-7.7); Platelet Count 193 K/mm3 (150-450); RBC Distribution Width CV 15.3 % (11.6-14.6); RBC Distribution Width SD 46.1 fl (35.1-43.9); Red Blood Count 5.26 M/mm3 (4.2-5.4); White Blood Count 6.4 K/mm3 (4.4-11.0)
[2024-11-17 12:59] LABS: Anion Gap 14 (5-15); BUN 31 mg/dL (4-19); BUN/Creat Ratio 27.2 RATIO (10-20); Calcium,Total 9.2 mg/dL (7.6-11.0); Carbon Dioxide 17.8 mmol/L (21.0-32.0); Chloride 107 mmol/L (98-108); Creatinine, Serum 1.15 mg/dL (0.70-1.20); EST Glomerular Filtration Rate 50 (>60); Glucose 138 mg/dL (70-99); Magnesium 2.4 mg/dL (1.5-2.2); Potassium 4.4 mmol/L (3.3-5.1); Sodium Level 139 mmol/L (133-145)
[2024-11-17 13:04] LABS: Hemoglobin A1c 6.2 % (<=5.6)
[2024-11-26] VITALS (15 sets, daily range): BP systolic 121–168; BP diastolic 63–99; PULSE 65–100; RESP 16–19; TEMP 35.9–36.8; O2SAT 88–98; BMI 38.2
--- NOTE | 2024-11-26 08:46 | PRE.ANES_ITS ---
ASA Classification* ASA Classification ASA Classification: 3 Assessment & Plan Anesthesia* Anesthesia Assessment Anesthesia Assessment: Discussed sedation and/or anesthesia options, risks, benefits, and alternatives with patient/parents/legal guardian/POA. Questions invited. The patient/parents/legal guardian/POA seems to understand and agrees to proceed with anesthesia plan. Reviewed the physical assessment, medical history, allergy history and patient home medications list prior to surgery/procedure/anesthetic and documented any changes. Performed airway and anesthesia risk assessments. Anesthesia Type Anesthesia Type: General and Block Anesthesia Focused Assessment* Airway Assessment Mouth opens: >3 cm Mallampati Score: II Focused Labs Anesthesia Preop lab: CBC WBC 6.4 K/mm3 (4.4-11.0) 11/17/24 11:03 11/17/24 RBC 5.26 M/mm3 (4.2-5.4) 11/17/24 11:03 11/17/24 Hgb 13.7 g/dL (12.0-15.0) 11/17/24 11:03 11/17/24 Hct 43.7 % (37-47) 11/17/24 11:03 11/17/24 Plt Count 193 K/mm3 (150-450) 11/17/24 11:03 11/17/24 CHEMISTRY Potassium 4.4 mmol/L (3.3-5.1) 11/17/24 11:03 11/17/24 Sodium 139 mmol/L (133-145) 11/17/24 11:03 11/17/24 Magnesium 2.4 mg/dL (1.5-2.2) H 11/17/24 11:03 11/17/24 Phosphorus 3.8 mg/dL (2.5-4.9) 01/25/23 09:18 01/25/23 BUN 31 mg/dL (4-19) H 11/17/24 11:03 11/17/24 Creatinine 1.15 mg/dL (0.70-1.20) 11/17/24 11:03 11/17/24 Glucose 138 mg/dL (70-99) H 11/17/24 11:03 11/17/24 POC Glucose 250 mg/dL (74-106) H 10/18/23 11:16 10/18/23 TSH 1.780 uIU/mL (0.358-3.740) 07/25/24 11:56 12/0 12/13 COAG PT 14.0 SECONDS (11.7-14.9) 05/16/24 15:11 Pre-Assessment Diagnosis/Proposed Procedure Planned Operative Procedure(s): (R) RIGHT REVERSE TOTAL SHOULDER ARTHROPLASTY, ERAS Anesthesia History 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 When Was Last Pacemaker Check QUESTION #4 FULL TEXT: You/Your Family Experience fever (hyperthermia) with Anesthesia Last Oral Intake Last Oral intake: Last Oral Intake NPO since Meds taken in AM with sips of water? Meds patient instructed to take am of surgery PONV PONV - assistant real estate manager: PONV - assistant real estate manager Female Yes 10/31/24 13:16 HX of Motion Sickness Yes 10/31/24 13:16 HX of N/V After Surgery No 10/31/24 13:16 Non-Smoker Yes 10/31/24 13:16 Duration of Surgery greater Yes 10/31/24 13:16 than 60 minutes Number of Risk Factors 4 10/31/24 13:16 PONV Score Severe Risk 10/31/24 13:16 Height & Weight Height & Weight: Anesthesia: Height & Weight Height 5 ft 4 in 11/23/24 10:04 Weight: 87.09 kg 11/23/24 10:04 Respiratory Assessment Respiratory Assessment - assistant real estate manager: Respiratory Tract Infection Hx - assistant real estate manager Hx Respiratory Tract Infection No 10/31/24 13:16 STOP Sleep Apnea STOP Sleep Apnea - assistant real estate manager: STOP Sleep Apnea - assistant real estate manager Hx Hypertension Yes: CONTROLLED WITH MEDS 10/31/24 13:16 Hx Sleep Apnea Yes 10/31/24 13:16 CPAP Yes 10/31/24 13:16 BIPAP No 10/31/24 13:16 Do you snore loudly (louder than talking or can be heard Do you often feel tired/ fatigued/ sleepy during daytime? Has anyone observed you stop breathing during sleep? STOP Results Positive 10/31/24 13:16 QUESTION #5 FULL TEXT : Do you snore loudly (louder than talking or can be heard through closed doors)? 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 Specify any problems Hx of Preganancy in last 3 N/A 10/31/24 13:16 Months Nurse Filling Out Transfusion NBUCHER 10/31/24 13:16 & Questions: Date: 10/31/24 10/31/24 13:16 Time: 13:20 10/31/24 13:16 Patient unable to answer at this time (ie. confused, unrespo /Reproduction History /Reproductive History - assistant real estate manager: /Reproductive Hx- assistant real estate manager Hx Now Gestational Age (in weeks): EDC: Hx Hx Para Hx Section SAB No 10/31/24 13:16 Active Medications Active Medications: Current Medications Generic Name Dose Route Start Last Admin Trade Name Freq PRN Reason Stop Dose Admin Acetaminophen 1,000 mg 11/26/24 10:25 Acetaminophen 500 Mg Tablet PO 11/26/24 10:26 X1 ONE Dexamethasone Sodium Phosphate 10 mg 11/26/24 10:25 Dexamethasone 10 Mg/Ml Vial IV 11/26/24 10:26 X1 ONE Gabapentin 600 mg 11/26/24 10:25 Gabapentin 600 Mg Tablet PO 11/26/24 10:26 X1 ONE Lactated Ringer's 1,000 mls @ 999 mls/hr 11/26/24 10:25 IV 11/26/24 11:25 .Q1H1M RO Cefazolin Sodium 2 gm/ N/A 20 mls @ 400 mls/hr 11/26/24 10:25 IV 11/26/24 10:27 PREOP ONE Tranexamic Acid 1,000 mg/ 110 mls @ 660 mls/hr 11/26/24 10:25 Sodium Chloride IV 11/26/24 10:34 X1 ONE Lactated Ringer's 1,000 mls @ 999 mls/hr 11/26/24 10:25 IV 11/26/24 11:25 .Q1H1M RO Lactated Ringer's 1,000 mls @ 125 mls/hr 11/26/24 10:25 IV 11/26/24 18:24 .Q8H RO Lactated Ringer's 1,000 mls @ 75 mls/hr 11/26/24 10:25 IV 11/26/24 23:44 .[id number] RO Magnesium Sulfate 1 gm/ 102 mls @ 408 mls/hr 11/26/24 10:25 Dextrose IV 11/26/24 10:39 X1 ONE Insulin Human Lispro 1 - 6 unit 11/26/24 10:25 Insulin Lispro 100 Unit/Ml Insuln.Pen SC 11/26/24 18:00 Q4H PRN PRN BG>/= 180, SEE PROTOCOL Protocol Sodium Chloride 10 - 40 ml 11/26/24 10:25 0.9% Nacl Peripheral Flush Adult IV UD PRN SALINE FLUSH PFSH Medical History Shingles Discoloration of skin Kidney stones Injury of back Injury of head and neck Shortness of breath on exertion Syncope Fall Fracture of proximal end of right humerus Cataract (lens) fragments in eye following cataract surgery, bilateral MRSA infection Post-menopausal Depression Anxiety History of steroid therapy Diabetes Walker as ambulation aid Ambulates with cane Osteoarthritis Arthritis Easy bruising High cholesterol Restless legs Seizures Blackout Dietary restriction Non-smoker CPAP (continuous positive airway pressure) dependence History of edema History of echocardiogram History of stress test Cardiology follow-up encounter Abnormal stress test Sjogren's disease Sinusitis Sinus arrhythmia Rheumatoid arthritis Obesity Atherosclerotic heart disease of [place] coronary artery without angina pectoris First degree atrioventricular block 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 Nicotine dependence in remission Post traumatic stress disorder Gout Lyme disease Sleep apnea Hypertension Asthma Home Medications ?Medication ?Instructions ?Recorded ?Last Taken ?Type fluticasone 500 mcg-salmeterol 50 1 puff inhalation BI D shortness of 01/23/15 04/17/15 05:15 History mcg/dose blistr powdr for breath inhalation (Advair Diskus) albuterol sulfate 90 mcg/actuation 1 - 2 puff inhalati on Q4H PRN 04/15/15 Unknown History aerosol inhaler (ProAir HFA) Asthma montelukast 10 mg tablet 10 mg PO QHS allergies 04/15 Unknown History amlodipine 10 mg tablet 10 mg PO DAILY blood pressur e 05/28/15 04/05/17 07:15 History 10 MG atorvastatin 20 mg tablet 20 mg PO QHS cholesterol 10/14 Unknown History citalopram 40 mg tablet 30 mg PO QHS sleep 09/23/22 Unknown History empagliflozin 10 mg tablet 10 mg PO DAILY diabetes 10/14 Unknown History (Jardiance) hydrochlorothiazide 12.5 mg tablet 12.5 mg PO DAILY bl ood pressure 09/23/22 Unknown History leflunomide 20 mg tablet 20 mg PO DAILY inflammation 09/23/22 Unknown History levetiracetam 750 mg 750 mg PO QHS seizures 09/23 Unknown History tablet,extended release 24 hr losartan 100 mg tablet 100 mg PO QHS blood pressure 09/23/22 Unknown History metformin 500 mg tablet 500 mg PO DAILY diabetes 10/14 Unknown History ondansetron HCl 4 mg tablet 4 mg PO Q8H PRN Nausea 10/14 Unknown History potassium chloride 20 mEq 20 meq PO DAILY potassium Unknown History tablet,extended release quetiapine 100 mg tablet 200 mg PO QHS mood disorder 09/23/22 Unknown History tiotropium bromide 2.5 2 puff inhalation DAILY shor tness 09/23/22 Unknown History mcg/actuation mist for inhalation of breath (Spiriva Respimat) meclizine 25 mg tablet 25 mg PO BID dizziness 11/26 Unknown History venlafaxine 150 mg 225 mg PO DAILY mood 3 Unknown History capsule,extended release 24 hr aspirin 81 mg tablet,delayed 81 mg PO DAILY heart 12/20 04/13 Unknown History release (Adult Low Dose Aspirin) guaifenesin 600 mg tablet, 600 mg PO BID PRN congestio n 04/29/23 Unknown History extended release 12 hr (Mucinex) prednisone 20 mg tablet 5 mg PO DAILY PRN pain 04/29 Unknown History fluticasone propionate 50 1 spray intranasal DAILY all ergy 10/12/23 Unknown History mcg/actuation nasal symptoms spray,suspension alprazolam 0.5 mg tablet 0.5 mg PO DAILY PRN Anxiety #10 10/18/23 Unknown Rx tabs alprazolam 1 mg tablet 1 mg PO QHS #20 tabs 4 Unknown Rx pregabalin 75 mg capsule 75 mg PO BID 01/17/24 Unknow n History metoprolol tartrate 25 mg tablet 25 mg PO BID #180 tab s 05/30/24 Unknown Rx furosemide 40 mg tablet 20 mg (1/2 x 40 mg) PO DAILY PRN 07/16/24 Unknown Rx edema #30 tabs tirzepatide 5 mg/0.5 mL 5 mg subcut QWEEK 11/22/24 U nknown History subcutaneous pen injector (Mounjaro) Allergy/AdvReac Type Severity Reaction Status Date / Time lactose Allergy Severe Vomiting Verified 11/08/24 15:06 Sulfa (Sulfonamide Allergy Hives Verified 11/08/24 15:06 Antibiotics) tree nut Allergy Anaphylaxis Verified 11/08/24 15:06 Rabbit AdvReac Severe NEEDS Verified 11/08/24 15:06 FOLLOW-UP sulfamethoxazole (From AdvReac Severe Skin Verified 11/08/24 15:06 Bactrim) rashes & blisters trimethoprim (From Bactrim) AdvReac Severe Skin Verified 11/08/24 15:06 rashes & blisters codeine AdvReac Other Verified 11/08/24 15:06 Environmental Allergies: AdvReac NEEDS Verified 11/08/24 15:06 Uncoded FOLLOW-UP erythromycin base AdvReac Upset Verified 11/08/24 15:06 Stomach milk (dairy) AdvReac Upset Verified 11/08/24 15:06 Stomach morphine AdvReac Nausea Verified 11/08/24 15:06 Family History Mother Diabetes Hypertension Heart disease Father Diabetes Hypertension Heart disease Cancer Brother Heart disease Hypertension Atrial fibrillation Obesity Grandmother AAA (abdominal aortic aneurysm) Grandfather Heart disease Grandmother Cancer Surgical History Hx of toe surgery History of amputation of toe History of coronary artery stent placement History of cardiac catheterization History of knee replacement History of shoulder replacement Stented coronary artery (01/26/23) History of tonsillectomy H/O shoulder surgery History of arthroscopic knee surgery Social History Smoking Status: Never smoker alcohol intake: former substance use type: does not use Review of Systems (Anesthesia) ROS Narrative System reviewed and no additional complaints, except as documented.
[2024-11-26] MEDS: Lactated Ringers 1,000 ML 999 ML IV ×2 (09:00→12:49)
[2024-11-26] MEDS: Magnesium 1 GM over 15 mins IV (09:01)
[2024-11-26] MEDS: Gabapentin 600 MG Tablet PO (09:01)
[2024-11-26] MEDS: Acetaminophen 500 MG Tablet 1000 MG PO ×2 (09:01→17:05)
[2024-11-26 09:13] LABS: Bedside Glucose 117 mg/dL (74-106)
--- NOTE | 2024-11-26 09:25 | SHO_PTH ---
PATIENT: REE WYLIE LOC: [facility] U#:[id number] AGE/SX: 74/F [place] [facility] [place]: Dr. Andrew Aguillon DO : 1950 BED: 1 DIS: 11/28/2024 SPEC #: [id number] RECD: 11/26/24 13:04 STATUS: BROOKE MAGDALENE #: [id number] ANY: 11/26/24 09:[address]: Andrew Aguillon DEPT: SURGICAL PATHOLOGY RECD BY: Karlie Stokes ENTERED: 11/26/24 14:23 SP TYPE: HUMERUS OTHR DR: Dr. Perry Peoples MD Tissues: Humerus, NOS Procedures: Decalcification bone/plaque Surgery Specimen Level III HEADER OPERATION: Right reverse total shoulder arthroplasty PRE-OP DIAGNOSIS: Right proximal humerus fracture, arthritis TISSUE SUBMITTED: A- Humeral head MICROSCOPIC DIAGNOSIS A. Right shoulder, humeral head fracture, total arthroplasty: * Articular bone and synovium with reactive/degenerative changes. MICROSCOPIC DESCRIPTION Slides are reviewed. GROSS DESCRIPTION A. Received in formalin in a container labeled with the patient's name, date of , and humeral head are multiple reinoso-pink, irregular, and firm fragments of bone measuring 5.0 x 5.0 x 2.2 cm in aggregate. The margins are firm and previously disrupted. The cortex is pitted and granular with renioso-pink nodules at the periphery. Sectioning reveals firm surfaces. Cigarette Maker sections submitted in A1 following decalcification. [facility] 11-26-2024 CPT:32788,[id number]
[2024-11-26] MEDS: Cefazolin 2 GM in Syringe 10 ML IV (10:00)
[2024-11-26] MEDS: dexAMETHasone 10 MG/ML Vial IV (10:06)
[2024-11-26] MEDS: TXA 1000mg in NS100 100ml (IVPB at Incision) 660 MG IV (10:15)
[2024-11-26] MEDS: Vancomycin IV 1,000 MG/20 ML Vial 1000 MG OPERA.SITE (11:11)
--- NOTE | 2024-11-26 11:35 | RAD_ITS ---
PROCEDURE: SHOULDER ONE VIEW 11/26/2024 REASON FOR EXAM: REVERSE TOTAL SHOULDER TECHNIQUE: 2 fluoroscopic images of the right shoulder. COMPARISON: None FINDINGS: Intraoperative images from a right total shoulder replacement is noted. Right shoulder hardware is identified, anatomic alignment. RAD/Shoulder One View IMPRESSION: Limited intraoperative images from right shoulder replacement. Anatomic alignm ent. Reading Location: [id number]
--- NOTE | 2024-11-26 12:39 | PCM.POST.ANE ---
Anesthesia: Postop Eval I Current Vital Signs Temperature: 96.6 F Pulse Rate: 67 Blood Pressure: 133/63 Respiratory Rate: 16 Pulse Ox: 95 Oxygen Delivery Method: Venturi Mask Oxygen Flow Rate (L/min): 4 Assessment Airway patent: Yes Spontaneous unlabored respirations: Yes Mental status: Awake and Calm nausea: No Vomiting: No Anesthesia Complication: No Fluid Hydration Crystalloid volume administer (ml): 1,800 Total IV fluid infused: 1,800 Progress Note Anesthesia document: Postop Eval 1 completed: Yes
--- NOTE | 2024-11-26 12:43 | RAD_ITS ---
EXAM: XR Right Shoulder Complete, 2 or More Views CLINICAL INDICATION: POST OP TECHNIQUE: Two or more views of the right shoulder. COMPARISON: No relevant prior studies available. FINDINGS: BONES/JOINTS: Total shoulder replacement. Intact hardware. No acute fracture. No dislocation. SOFT TISSUES: Soft tissue emphysema and swelling. RAD/Shoulder min 2 Views IMPRESSION: Status post total shoulder replacement in anatomic position. Reading Location: [facility]
[2024-11-26] MEDS: Lactated Ringers 1,000 ML 125 ML IV (13:46)
--- NOTE | 2024-11-26 13:57 | POSTOPAN2_ITS ---
Anesthesia Postop Eval I Sum Postop Eval Completion status Anesthesia document: Postop Eval 1 completed: Yes Anesthesia Postop Eval I Summary Anesthesia Postop Eval I Summary: Anesthesia Postop Eval I: Assessment Summary Airway patent Yes 11/26/24 12:40 [email or web address] Spontaneous unlabored Yes 11/26/24 12:40 [email or web address] respirations Mental status Awake,Calm 11/26/24 12:40 [email or web address] nausea No 11/26/24 12:40 [email or web address] Vomiting No 11/26/24 12:40 [email or web address] Anesthesia Postop Eval I: Fluid Summary Crystalloid volume administer 1,800 11/26/24 12:40 [email or web address] (ml) Colloids volume administered ( ml) Blood Product volume administered (ml) Total IV fluid infused 1,800 11/26/24 12:40 [email or web address] Anesthesia Postop Eval I: Summary Notes Anesthesia Complication No 11/26/24 12:40 [email or web address] Anesthesia Complication Comment: Post-operative progress note Anesthesia: Postop Eval II Evaluation Mental status: Awake Pain Level: 0 nausea: No Vomiting: No
--- NOTE | 2024-11-26 13:57 | PCM.POSTANE2 ---
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 Spontaneous unlabored Yes 11/26/24 12:40 [email or web address] respirations Mental status Awake,Calm 11/26/24 12:40 [email or web address] nausea No 11/26/24 12:40 [email or web address] Vomiting No 11/26/24 12:40 [email or web address] Anesthesia Postop Eval I: Fluid Summary Crystalloid volume administer 1,800 11/26/24 12:40 [email or web address] (ml) Colloids volume administered ( ml) Blood Product volume administered (ml) Total IV fluid infused 1,800 11/26/24 12:40 [email or web address] Anesthesia Postop Eval I: Summary Notes Anesthesia Complication No 11/26/24 12:40 [email or web address] Anesthesia Complication Comment: Post-operative progress note Anesthesia: Postop Eval II Evaluation Mental status: Awake Pain Level: 0 nausea: No Vomiting: No
--- NOTE | 2024-11-26 15:21 | NURSING ---
HRO at bedside talking with pt per her request
--- NOTE | 2024-11-26 15:59 | PCM.OPRPT ---
Operative Report (Standard) Operative Information Date of Procedure: 11/26/24 Pre-Operative Diagnosis: Right proximal humerus nonunion Post-Operative Diagnosis: Right proximal humerus nonunion Surgery/Procedure Performed: Right reverse total shoulder arthroplasty rn case manager: Yes Copra Sampler: Lurdes Jimenez Tasks completed by assistant professor of physics: Opening & closing, Dissecting tissue, Implanting device and Retracting Additional radiology practitioner assistant?: No Type of Anesthesia: General/Regional RN Documented Start/Stop Times: Operation Date: 11/26/24 09:25 Case Time Into Pre-Op 11/26/24 08:18 Anesthesia Start 11/26/24 09:40 Into Room 11/26/24 09:40 Procedure Start 11/26/24 10:15 Procedure End 11/26/24 12:21 Anesthesia End 11/26/24 12:31 Out of Room 11/26/24 12:31 Into Recovery 11/26/24 12:35 Out of Recovery 11/26/24 14:15 Procedure Start Time: 10:15 Procedure Stop Time: 12:21 Select all DRAINS/GRAFTS/IMPLANTS that apply: Implanted device Implanted device details: Tornier perform fracture stem size 9, +3 mm retentive polyethylene, Tornier Aequalis PerFORM+ reversed baseplate 25 mm +6 mm lateralization, standard glenosphere cobalt chrome 39 mm diameter Estimated Blood Loss: 50 cc Specimen collected: Yes Description of specimen(s) removed: Right humeral head Description of surgery: Patient arrived to [facility] morning of the procedure and was greeted by the same day surgery staff. Prior to her procedure, I greeted the patient in the preoperative holding area I identified the patient by name, record number, and date of . Informed consent was confirmed. The operative extremity was marked. All questions were answered to patient satisfaction. Patient was also seen by anesthesia staff. Interscalene block was administered prior to procedure for postoperative analgesia. At time of her procedure, patient was brought to the operative suite and positioned supine on a standard table with a beachchair attachment. General anesthesia was induced after all bony prominences were well-padded. Endotracheal tube was placed. After adequate anesthesia and securing the tube, we prepared the patient to be positioned in the beachchair position. A well-padded head bookkeeper was applied. The nonoperative extremity was placed in a well arm villalba. She was then brought into the beachchair position after we confirmed an appropriate blood pressure. We then spun the bed 45 degrees. The operative extremity was then prepared. In the butterfly wing of the bed was removed and a well-padded torso strap was applied to secure the patient to the bed. The operative extremity was now free. We then prepped and draped the right upper extremity in normal, sterile orthopedic fashion. We then performed a timeout with all parties in attendance in agreement with the side, site, and operation be performed. 2 g Ancef was administered prior to incision by anesthesia staff, as well as 1 g TXA IV. No concerns were voiced and we elected to proceed. I first marked a standard deltopectoral incision just lateral to the coracoid process in line with the long axis of the humerus. Skin was sharply incised with 10 blade scalpel. I then dissected bluntly through the subcutaneous layers and found the fat stripe between the deltoid and pectoralis major. The cephalic vein was then identified and protected. It was retracted laterally with the deltoid. I then bluntly dissected beneath the deltoid with a Hoskins elevator. There is significant adherence of the subdeltoid and subacromial bursa to the proximal humeral fractured segment. I was able to elevate this significantly but cannot completely release the adhesions with blunt dissection. A pseudoarthrosis was noted at the surgical neck. The humeral head was then able to be excised from the surgical field after careful dissection from surrounding pseudocapsule that had formed at the pseudoarthrosis. There was an effusion noted within the pseudoarthrosis. There was an approximate 1 cm maximal diameter fragment of bone noted posterior laterally which I suspected was the remnant of the greater tuberosity fragment. I tagged this for later possible repair. It should be noted that the fragment was visualized and identified at the 10 o'clock position of the glenoid and was unable to be lateralized beyond the face of the glenoid, as can be seen in chronic rotator cuff tears. After removal of the humeral head, identified the glenoid and glenoid labrum. 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 The remaining glenoid labrum was then debrided. 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 Central pin was placed based on preoperative templating. I reamed with a standard 25 mm reamer to a flat face of the glenoid down to bleeding subchondral bone. I then drilled for short post and + 6 mm baseplate was assembled on the back table with a short post. Implant was then impacted to appropriate depth with excellent purchase. Peripheral screws were then placed with excellent purchase. 39 mm glenosphere was then impacted and locking screw tightened. I then turned my attention back to the humerus. I used a drill bit and subsequent awl to identify our humeral canal which was essentially healed over given the sclerosis from the pseudoarthrosis. There was significant sclerotic cortical bone along all margins of the proximal humeral segment especially laterally. This made it challenging to lateralize much as possible. The smallest broach in the system, size #7, was the only approach that appropriately gained depth, fortunately did have excellent rotational and axial control/stability. I selected a 0 and then subsequently trialed a +3 mm polyethylene which achieved excellent stability. Given the lack of mobilization of the greater tuberosity segment I elected to remove this bone. Orthogonal fluoroscopy demonstrated appropriate sizing. Range of motion was excellent with excellent stability. Trial dislocation was performed. Trials were removed from the humeral side. The wound was copiously irrigated with a 3-minute sterile diluted Betadine soak. Sterile saline was then irrigated through. Final stem was then impacted to appropriate depth and a +3 mm retentive poly was impacted. Final reduction was performed. Interval tissue was reapproximated with [id number] #1 Vicryl suture. Fascial tissue was closed in running, locking fashion with #1 Vicryl suture. Dermis reapproximated with buried 2-0 Vicryl suture and skin finally approximated with a 3-0 V-Loc and Dermabond. Silver sterile compression dressing was applied. Patient was awakened from anesthesia explained the operative suite. She was placed in an UltraSling. She tolerated the procedure well without apparent complication. She was transferred to her hospital bed and subsequently to PACU in stable condition. Need for skilled radiology practitioner assistant: Lurdes Jimenez PA-C was critical to the outcome of the case. During the course of the procedure the physician radiology practitioner assistant played a vital role. Her intimate knowledge of my steps in the procedure aided in safe and expedient completion of the procedure. The PA played a vital role in positioning particularly in obtaining the appropriate positioning. The PA was also vital in the retraction of soft tissues during the exposure and projecting vital structures. The PA was also vital and protecting soft tissues during times of bony cuts. She also played a vital role in closure with my direct supervision. The PA was also important during reduction and dislocation of the joint and trials intraoperatively. Intraoperative medications: 2 g Ancef IV, 1 g TXA IV Post Operative Plan: Weightbearing: Nonweightbearing left upper extremity, okay for pendulums. Range of motion of wrist elbow and hand as tolerated. Antibiotics: 2 g Ancef IV prior to incision, Ancef x 24 hours postoperatively. Plan for 1 week doxycycline for extended antibiotic prophylaxis given multiple risk factors. DVT Prophylaxis: Aspirin 81 mg twice daily starting tomorrow Marcus: None Dressing: Maintain silver dressing x5 days. Okay to shower dressing on started on day 4 X-Rays: 2 weeks postop in the office Pain Medication: Percocet Rx upon discharge Follow-up: 2 weeks post-operatively in the office Surgical Findings: Pseudoarthrosis right proximal humerus. Stable following final reduction. Complications Complications: No Admit VTE Documentation VTE Present on Admission: No VTE Mechan Device Prophylaxis: SCD's VTE Pharm Prophylaxis ordered?: Yes
--- NOTE | 2024-11-26 15:59 | CASEMGMT ---
Social Work- SW was flagged for SDOH assessment on pt. SW collaborated with nurse who reports that there is concerns regarding a situation with a tenant that patient previously rented an apartment to. Nurse reports that police are currently discussing the situation with pt. SW will plan to follow up with pt following police visit. PEDRO Baker
[2024-11-26] MEDS: Cefazolin 1 GM/50 ML BAG IV (17:07)
[2024-11-26] MEDS: Budesonide Respules 0.5 MG/2 ML AMPUL.NEB. INHALATION (17:14)
[2024-11-26] MEDS: Ipratropium/Albuterol Sulfate 3 ML AMPUL.NEB INHALATION (17:14)
--- NOTE | 2024-11-26 17:19 | PN.HOSP_ITS ---
Subjective Subjective 74-year-old female presented for surgery of her right proximal humerus for nonunion. She is doing well postoperatively, not requiring any oxygen. Objective Data Objective Data Vital Signs: Vital Signs Temp Pulse Resp BP Pulse Ox O2 Del Method O2 Flow Rate 97.5 F L 73 18 168/99 H 93 Room Air 4 11/26/24 16:41 11/26/24 16:41 11/26/24 16:41 11/26/24 16:41 11/26/24 16:41 11/26/24 16:41 11/26/24 14:42 Oxygen Flow Rate (L/min) 4 Oxygen Delivery Method Room Air Weight: 222 lb 10.67 oz Body Mass Index (BMI) 38.2 Intake & Output: Intake and Output for Last 24 Hours 11/25/24 11/26/24 11/27/24 03:59 03:59 03:59 Intake Total 2650.75 / 2650.75 Balance 2650.75 / 2650.75 Lab / Micro Data 11/17/24 11:03 11/17/24 11:03 Labs: Laboratory Results - last 24 hr 11/26/24 08:45: POC Glucose 117 H Micro: Microbiology 11/17/24 11:03 Swab (Method) Nasal Screen MRSA/MSSA - Final Radiography Diagnostic Testing: Radiology Impression Shoulder X-Ray 11/26/24 12:43 IMPRESSION: Status post total shoulder replacement in anatomic position. Reading Location: [facility] Physical Exam Narrative General: Alert, Oriented x3, Cooperative, No apparent distress HEENT: Atraumatic, PERRLA, EOMI, Normocephalic Oral: Dry mucosa Neck: Supple, No JVD Lungs: Diminished, Normal air movement, No rhonchi, No wheeze, No rales Cardiovascular: Regular rate, Regular Rhythm, Normal S1, Normal S2, No murmurs Abdomen: Soft, Non Tender, Non-Distended, No Hepato-splenomegaly Extremities: No edema, Capillary Refill Less than 3 Seconds, right arm in a sling Skin: No rashes, No breakdown, right shoulder dressing is intact Musculoskeletal: No Tenderness to Palpation of Joints or Extremities Neurological: No focal neurological deficits, Motor Exam 5/5 strength throughout, Sensory exam intact to light touch and pain Psych/Mental Status: Normal Affect, Appropriate Assessment & Plan Assessment/Plan (1) Status post reverse total arthroplasty of right shoulder: PLAN: Plan 1. 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 Pain management per primary ? PT/OT ? Will hold her losartan tonight pending BMP check in the morning 2. Essential HTN/HLD ? Continue with her home blood pressure medications except for losartan ? Monitor creatinine in the morning, if elevated hold hydrochlorothiazide as well, her Lasix is doses as needed for edema ? Continue with metoprolol 3. DM2 ? Stable, hold metformin and Jardiance ? Accu-Cheks ACHS ? Sign scale insulin/will monitor make adjustments as necessary 4. Anxiety/depression ? Stable ? Can resume her home medications 5. Sjogren's ? She is on leflunomide and as needed prednisone ? Stable 6. Seizure disorder ? Stable ? Continue with Keppra DVT: Per primary Charges/Coding Visit Charges Office Visits / Consults: 33786 OV L3 New 30min
[2024-11-26] MEDS: 0.9% NaCl Peripheral Flush Adult IV (18:33)
[2024-11-26] MEDS: Pregabalin 75 MG Capsule PO (21:39)
[2024-11-26] MEDS: Citalopram 10 MG Tablet 30 MG PO (21:39)
[2024-11-26] MEDS: levETIRAcetam 750 MG Tablet 375 MG PO (21:39)
[2024-11-26] MEDS: Atorvastatin Calcium 20 MG Tablet PO (21:39)
[2024-11-26] MEDS: Meclizine HCl 25 MG Tablet PO (21:39)
[2024-11-26] MEDS: ALPRAZolam 0.5 MG Tablet 1 MG PO (21:39)
[2024-11-26] MEDS: Montelukast 10 MG Tablet PO (21:40)
[2024-11-26] MEDS: Insulin Lispro 100 UNIT/ML INSULN.PEN SC (21:40)
[2024-11-26] MEDS: QUEtiapine 100 MG Tablet 200 MG PO (21:40)
[2024-11-26] MEDS: Metoprolol Tartrate 25 MG Tablet PO (21:40)
[2024-11-26] MEDS: Senna/Docusate Sodium 1 Tablet 2 TABLET PO (21:40)
[2024-11-26 22:13] LABS: Bedside Glucose 178 mg/dL (74-106)
[2024-11-27] VITALS (12 sets, daily range): BP systolic 126–144; BP diastolic 69–77; PULSE 68–93; RESP 16–18; TEMP 36.4–37; O2SAT 95–98
[2024-11-27] MEDS: Acetaminophen 500 MG Tablet 1000 MG PO ×3 (02:00→17:36)
[2024-11-27] MEDS: Cefazolin 1 GM/50 ML BAG IV (02:00)
[2024-11-27] MEDS: oxyCODONE 5 MG Tablet PO ×4 (06:56→21:36)
[2024-11-27] MEDS: Ipratropium/Albuterol Sulfate 3 ML AMPUL.NEB INHALATION ×4 (07:29→19:55)
[2024-11-27] MEDS: Budesonide Respules 0.5 MG/2 ML AMPUL.NEB. INHALATION ×2 (07:32→19:55)
[2024-11-27 07:59] LABS: Hemoglobin 12.1 g/dL (12.0-15.0); Mean Corpuscular Hgb 26.2 pg (27.0-32.0); Mean Corpuscular Volume 84.4 fL (81-99); Mean Platelet Vol. 10.3 fl (6.2-12.0); Platelet Count 167 K/mm3 (150-450); RBC Distribution Width CV 15.2 % (11.6-14.6); RBC Distribution Width SD 45.9 fl (35.1-43.9); Red Blood Count 4.62 M/mm3 (4.2-5.4); White Blood Count 9.7 K/mm3 (4.4-11.0)
[2024-11-27 08:31] LABS: Anion Gap 13 (5-15); BUN 20 mg/dL (4-19); BUN/Creat Ratio 19.1 RATIO (10-20); Calcium,Total 8.4 mg/dL (7.6-11.0); Carbon Dioxide 18.6 mmol/L (21.0-32.0); Chloride 106 mmol/L (98-108); Creatinine, Serum 1.05 mg/dL (0.70-1.20); EST Glomerular Filtration Rate 56 (>60); Estimated Creatinine Clearance 55.16 ml/min (50-250); Glucose 121 mg/dL (70-99); Potassium 4.5 mmol/L (3.3-5.1); Sodium Level 137 mmol/L (133-145)
[2024-11-27] MEDS: levETIRAcetam 750 MG Tablet 375 MG PO ×2 (09:47→21:16)
[2024-11-27] MEDS: hydroCHLOROthiazide 12.5mg 12.5 MG PO (09:57)
[2024-11-27] MEDS: Potassium Chloride Oral Tablet 20 MEQ PO (09:57)
[2024-11-27] MEDS: Aspirin E.C. 81 MG Tablet PO ×2 (09:57→17:36)
[2024-11-27] MEDS: Metoprolol Tartrate 25 MG Tablet PO ×2 (09:58→21:15)
[2024-11-27] MEDS: Meclizine HCl 25 MG Tablet PO ×2 (09:58→21:16)
[2024-11-27] MEDS: Leflunomide 10 MG TABLET 20 MG PO (10:15)
[2024-11-27] MEDS: Venlafaxine XR 75 MG Capsule 225 MG PO (10:15)
[2024-11-27] MEDS: Senna/Docusate Sodium 1 Tablet 2 TABLET PO ×2 (10:16→21:16)
[2024-11-27] MEDS: Pregabalin 75 MG Capsule PO ×2 (10:18→21:20)
[2024-11-27 11:31] LABS: Bedside Glucose 126 mg/dL (74-106)
--- NOTE | 2024-11-27 11:43 | DS.PCM_ITS ---
Providers Date of Admission: 11/26/24 Date of Discharge: 11/28/24 Primary Care Physician: Dr. Perry Peoples MD Consultations 11/26/24 12:13 Consult: Hospitalist Routine Consulting Provider: Andrew Fox Reason for Consult: Post op right total shoulder medical management EMERGENT Consult: No MD Notified: Yes Date Notified: 11/26/24 Time Notified: 14:49 Method of Notification: Text Reason For Visit: RIGHT REVERSE TOTAL SHOULDER ARTHROPLASTY, ERAS Diagnosis Discharge Diagnosis (1) Status post reverse total arthroplasty of right shoulder: Status: Acute Code(s): Z96.611 - Presence of right artificial shoulder joint Plan Postop day 2 status post right reverse total shoulder arthroplasty 1. Will continue PT today. Nonweightbearing to right upper extremity. Elbow range of motion and pendulums only. Sling at all times 2. plan for discharge home today 3. Patient will follow up for post op appointment in 2 weeks in our office as previously scheduled 4. Patient has outpatient PT appointment in 2 weeks as previously scheduled 5. no new labs today. 6. DVT prophylaxis : Aspirin 81 mg twice daily x 2 weeks 7. Pain control: patient instructed to take tylenol 500mg 2 tablets TID. and oxycodone 1-2 tablets every 4-6 hours only as needed for pain control. doxycycline 100mg BID x 1 week 8. ok to remove post op dressing. post op day 7 Medications at Discharge Home Medications fluticasone 500 mcg-salmeterol 50 mcg/dose blistr powdr for inhalation (Advair Diskus) 1 puff inhalation BID shortness of breath 01/23/15 albuterol sulfate 90 mcg/actuation aerosol inhaler (ProAir HFA) 1 - 2 puff inhalation Q4H PRN Asthma 04/15/15 montelukast 10 mg tablet 10 mg PO QHS allergies 04/15/15 atorvastatin 20 mg tablet 20 mg PO QHS cholesterol 09/23/22 citalopram 40 mg tablet 30 mg PO QHS sleep 09/23/22 empagliflozin 10 mg tablet (Jardiance) 10 mg PO DAILY diabetes 09/23/22 hydrochlorothiazide 12.5 mg tablet 12.5 mg PO DAILY blood pressure 09/23/22 leflunomide 20 mg tablet 20 mg PO DAILY inflammation 09/23/22 levetiracetam 750 mg tablet,extended release 24 hr 750 mg PO QHS seizures 09/23/22 losartan 100 mg tablet 100 mg PO QHS blood pressure 09/23/22 metformin 500 mg tablet 500 mg PO DAILY diabetes 09/23/22 ondansetron HCl 4 mg tablet 4 mg PO Q8H PRN Nausea 09/23/22 potassium chloride 20 mEq tablet,extended release 20 meq PO DAILY potassium 09/23/22 quetiapine 100 mg tablet 200 mg PO QHS mood disorder 09/23/22 tiotropium bromide 2.5 mcg/actuation mist for inhalation (Spiriva Respimat) 2 puff inhalation DAILY shortness of breath 09/23/22 meclizine 25 mg tablet 25 mg PO BID dizziness 11/26/22 venlafaxine 150 mg capsule,extended release 24 hr 225 mg PO DAILY mood 12/15/22 aspirin 81 mg tablet,delayed release (Adult Low Dose Aspirin) 81 mg PO DAILY heart 01/06/23 Held on 11/28/24. Instructions: Resume on 12/13/24. guaifenesin 600 mg tablet, extended release 12 hr (Mucinex) 600 mg PO BID PRN congestion 04/29/23 prednisone 20 mg tablet 5 mg PO DAILY PRN pain 04/29/23 fluticasone propionate 50 mcg/actuation nasal spray,suspension 1 spray intranasal DAILY allergy symptoms 10/12/23 alprazolam 0.5 mg tablet 0.5 mg PO DAILY PRN Anxiety #10 tabs 10/18/23 alprazolam 1 mg tablet 1 mg PO QHS #20 tabs 10/18/23 pregabalin 75 mg capsule 75 mg PO BID 01/17/24 metoprolol tartrate 25 mg tablet 25 mg PO BID #180 tabs 05/30/24 furosemide 40 mg tablet 20 mg (1/2 x 40 mg) PO DAILY PRN edema #30 tabs 07/16/24 tirzepatide 5 mg/0.5 mL subcutaneous pen injector (Mounjaro) 5 mg subcut QWEEK 11/22/24 acetaminophen 500 mg tablet 1,000 mg (2 x 500 mg) PO Q8H #180 tabs 11/28/24 aspirin 81 mg tablet,delayed release 81 mg PO BIDCM 2 weeks #28 tabs 11/28/24 doxycycline monohydrate 100 mg capsule 100 mg PO BID 7 days #14 caps 11/28/24 oxycodone 5 mg tablet 5 - 10 mg (1 - 2 x 5 mg) PO Q4H PRN PRN Pain Score 4-10 7 days #30 tabs 11/28/24 sennosides 8.6 mg-docusate sodium 50 mg tablet (Stimulant Laxative Plus) 2 tab PO BID #14 tabs 11/28/24 Hospital Course Operations - (Right reverse total shoulder arthroplasty) Procedures None Summary of Care Provided Hospital Course: Patient is s/p right reverse total shoulder arthroplasty 11/26/[address] Rodriguez. Patient resting comfortably in bed. Rates pain 5/ 10 at rest. With movement 7/10. States taking Tylenol and oxycodone and ice help to relieve pain. Patient has been up with therapy. Sling in place. Nonweightbearing to right upper extremity.. Afebrile, no chest pain, shortness of breath, negative calf pain/ erythema, and no other signs of DVT. Patient has had uncomplicated postoperative course. Pain is well-controlled. She is stable for discharge home both medically and orthopedically. Will get home health and/or home PT. Physical Exam Narrative Patient resting comfortably in bed No signs of acute distress Satting well on room air Sling in place Right upper extremity limb is warm to touch, Sensation intact throughout entire right upper extremity, Motor intact to radial, median, ulnar nerve distribution Radial pulses bounding Dressing clear dry intact Calf nontender to palpation, no erythema, no edema. Negative Homans Weight / BMI Weight Weight: 101 kg Body Mass Index (BMI) 38.2 ABG / Lab / Microbiology Data 11/27/24 07:30 11/27/24 07:30 Laboratory: Laboratory Results - last 24 hr 11/27/24 16:25: POC Glucose 152 H 11/27/24 21:28: POC Glucose 151 H 11/28/24 06:04: POC Glucose 113 H 11/28/24 11:13: POC Glucose 149 H Microbiology: Microbiology 11/17/24 11:03 Swab (Method) Nasal Screen MRSA/MSSA - Final Radiography Diagnostic Testing: Radiology Impression Shoulder X-Ray 11/26/24 11:35 IMPRESSION: Limited intraoperative images from right shoulder replacement. Anatomic alignment. Reading Location: [facility] Shoulder X-Ray 11/26/24 12:43 IMPRESSION: Status post total shoulder replacement in anatomic position. Reading Location: [facility] D/C Instructions Discharge Diet: No restrictions Discharge Activity: Return to Normal Activity, No Restrictions (Nonweightbearing to the right upper extremity. Sling at all times.) and May Shower Weight Bearing Status: No weight bearing (Right upper extremity. Sling at all times) Call your doctor if your incision/area has: Continuous Slow Oozing, Sudden Increased Bleeding, Increased Pain/ Swelling, Increased Redness, Foul Smelling Discharge and Swelling at the incision site Call your doctor if you observe: Fever of 101 or Higher, Inability to have a bowel movement, Shortness of breath, Chest pain, Increased palpitations (irregular heartbeat), Calf discomfort and Uncontrolled pain Remove Dressing in: 1 week Cleanse incision/area with: Soap & Water and Keep Dressing Clean & Dry DC O2, CPAP, BIPAP Needs Home O2 Discharge instructions: No DC home with Oxygen: No When: In 2 weeks with [facility] orthopedics as previously scheduled. Meaningful Use Info Meaningful Use Meaningful Use Diagnoses (Choose all that apply): None applicable Ischemic Stroke Statin Dosing Therapy Reference: STATIN DOSE THERAPY REFERENCE: * Patients > 75 years receive moderate or high dose statin therapy. * Patients 75 years or YOUNGER should receive HIGH intensity statin dose unless contraindicated. You will be required to document reason for non-treatment if statin daily dose does not meet guidelines. HIGH DOSE STATIN THERAPY DAILY Atorvastatin > than or = to 40 mg Rosuvastatin > than or = to 20 mg Amlodipine + Atorvastatin > than or = to 2.5/40 mg Ezetimibe + Simvastatin 10/80 mg Simvastatin 80mg Discharge Plan Admission Admit Date/Time: 11/26/24 12:13 Attending Provider: Andrew Rodriguez Primary Care Provider: Perry Peoples Consulting Providers: Andrew Fox Kathryn Discharge Orders/Prescriptions Prescriptions: New acetaminophen 500 mg Tablet 1,000 mg PO Q8H Qty: 180 0RF aspirin 81 mg Tablet,Delayed Release (Dr/Ec) 81 mg PO BIDCM 14 Days Qty: 28 0RF oxycodone 5 mg Tablet 5 - 10 mg PO Q4H PRN PRN (Reason: Pain Score 4-10) 7 Days Qty: 30 0RF sennosides-docusate sodium [Stimulant Laxative Plus] 8.6-50 mg Tablet 2 tab PO BID Qty: 14 0RF doxycycline monohydrate 100 mg capsule 100 mg PO BID 7 Days Qty: 14 0RF Continued meclizine 25 mg tablet 25 mg PO BID hydrochlorothiazide 12.5 mg tablet 12.5 mg PO DAILY citalopram 40 mg tablet 30 mg PO QHS levetiracetam 750 mg tablet extended release 24 hr 750 mg PO QHS ondansetron HCl 4 mg tablet 4 mg PO Q8H PRN (Reason: Nausea) atorvastatin 20 mg tablet 20 mg PO QHS Spiriva Respimat 2.5 mcg/actuation mist 2 puff inhalation DAILY potassium chloride 20 mEq tablet extended release 20 meq PO DAILY metformin 500 mg tablet 500 mg PO DAILY Jardiance 10 mg tablet 10 mg PO DAILY Patient Comments: pt states she only takes as neeeded leflunomide 20 mg tablet 20 mg PO DAILY guaifenesin [Mucinex] 600 mg tablet extended release 12hr 600 mg PO BID PRN (Reason: congestion) venlafaxine 150 mg capsule,extended release 24hr 225 mg PO DAILY prednisone 20 mg tablet 5 mg PO DAILY PRN (Reason: pain) Rx Instructions: x5days fluticasone propion-salmeterol [Advair Diskus] 1 EACH blister with device 1 puff inhalation BID Patient Comments: RINSE AND GARGLE MOUTH WITH WATER AFTER EACH USE. montelukast 10 MG tablet 10 mg PO QHS albuterol sulfate [ProAir HFA] 1 PUFF inhaler 1 - 2 puff inhalation Q4H PRN (Reason: Asthma) losartan 100 mg tablet 100 mg PO QHS quetiapine 100 mg tablet 200 mg PO QHS Patient Comments: pt states she takes 1 at night if needed fluticasone propionate 50 mcg/actuation spray,suspension 1 spray intranasal DAILY Rx Instructions: administer into each nostril pregabalin 75 mg capsule 75 mg PO BID Mounjaro 5 mg/0.5 mL pen injector 5 mg SUBCUT QWEEK Patient Comments: LAST DOSE 11/17/24 alprazolam 0.5 mg tablet 0.5 mg PO DAILY PRN (Reason: Anxiety) Qty: 10 0RF alprazolam 1 mg tablet 1 mg PO QHS Qty: 20 0RF metoprolol tartrate 25 mg tablet 25 mg PO BID Qty: 180 3RF furosemide 40 mg tablet 20 mg PO DAILY PRN (Reason: edema) Qty: 30 11RF Held aspirin [Adult Low Dose Aspirin] 81 mg tablet,delayed release (DR/EC) 81 mg PO DAILY Hold Instructions: Resume on 12/13/24. Patient Comments: ASK DR. RODRIGUEZ RE:STOPPING Referrals / Follow Up: Perry Peoples MD [Primary Care Provider] - Disposition Disposition (needs filled in before D/C Order can be placed): Home, Self Care
[2024-11-27 11:48] LABS: Bedside Glucose 152 mg/dL (74-106)
[2024-11-27] MEDS: Insulin Lispro 100 UNIT/ML INSULN.PEN SC ×2 (12:02→17:39)
--- NOTE | 2024-11-27 12:12 | PN.ORTHO_ITS ---
Subjective Subjective Patient is s/p right reverse total shoulder arthroplasty 11/26/[address] Aguillon. Patient resting comfortably in bed. Rates pain 5/ 10 at rest. With movement 7/10. States taking Tylenol and oxycodone and ice help to relieve pain. Patient has been up with therapy. Sling in place. Nonweightbearing to right upper extremity.. Afebrile, no chest pain, shortness of breath, negative calf pain/ erythema, and no other signs of DVT. Objective Data Objective Data Vital Signs: Vital Signs Temp Pulse Resp BP Pulse Ox O2 Del Method O2 Flow Rate 97.8 F 71 16 144/75 H 95 Room Air 4 11/27/24 03:08 11/27/24 11:01 11/27/24 11:01 11/27/24 03:08 11/27/24 11:01 11/27/24 11:01 11/27/24 10:52 Oxygen Flow Rate (L/min) 4 Oxygen Delivery Method Room Air Weight: 101 kg Body Mass Index (BMI) 38.2 Intake & Output: Intake and Output for Last 24 Hours 11/25/24 11/26/24 11/27/24 23:59 23:59 23:59 Intake Total 3715.00 / 3715.00 550 / 550 Balance 3715.00 / 3715.00 550 / 550 Lab / Micro Data 11/27/24 07:30 11/27/24 07:30 Labs: Laboratory Results - last 24 hr 11/26/24 21:22: POC Glucose 178 H 11/27/24 06:54: POC Glucose 126 H 11/27/24 07:30: WBC 9.7, RBC 4.62, Hgb 12.1, Hct 39.0, MCV 84.4, MCH 26.2 L, M CHC 31.0 L, RDW Std Deviation 45.9 H, RDW Coeff of Anali 15.2 H, Plt Count 167, MPV 10.3, Sodium 137, Potassium 4.5, Chloride 106, Carbon Dioxide 18.6 L, Anion Gap 13, BUN 20 H, Creatinine 1.05, Estim Creat Clear Calc 55.16, Est GFR (MDRD) Non-Af 56 L, BUN/Creatinine Ratio 19.1, Glucose 121 H, Calcium 8.4 11/27/24 11:23: POC Glucose 152 H Micro: Microbiology 11/17/24 11:03 Swab (Method) Nasal Screen MRSA/MSSA - Final Radiography Diagnostic Testing: Radiology Impression Shoulder X-Ray 11/26/24 11:35 IMPRESSION: Limited intraoperative images from right shoulder replacement. Anatomic alignment. Reading Location: [facility] Shoulder X-Ray 11/26/24 12:43 IMPRESSION: Status post total shoulder replacement in anatomic position. Reading Location: [facility] Physical Exam Narrative Patient resting comfortably in bed No signs of acute distress Satting well on room air Sling in place Right upper extremity limb is warm to touch, Sensation intact throughout entire right upper extremity, Motor intact to radial, median, ulnar nerve distribution Radial pulses bounding Dressing clear dry intact Calf nontender to palpation, no erythema, no edema. Negative Homans Assessment & Plan Assessment/Plan (1) Status post reverse total arthroplasty of right shoulder: PLAN: Plan Postop day 1 status post right reverse total shoulder arthroplasty 1. Will continue PT today. Nonweightbearing to right upper extremity. Elbow range of motion and pendulums only. Sling at all times 2. plan for discharge home with likely home health and/or home PT. Patient would benefit from another night stay due to pain control. 3. Patient will follow up for post op appointment in 2 weeks in our office as previously scheduled 4. Patient has outpatient PT appointment in 2 weeks as previously scheduled 5. WBC 9.7 no acute reactive leukocytosis: 6. H/H 12.1/39.0: no post operavtive anemia 7. DVT prophylaxis : Aspirin 81 mg twice daily x 2 weeks 8. Pain control: patient instructed to take tylenol 500mg 2 tablets TID. and oxycodone 1-2 tablets every 4-6 hours only as needed for pain control. 10. ok to remove post op dressing. post op day 7
--- NOTE | 2024-11-27 12:47 | CASEMGMT ---
Met with patient to complete CHING form. CHING form explained to patient who voiced understanding and signed form. Original form placed in pt?s chart and copy provided to patient. Mervat Martinez, Discharge Planning Asst
--- NOTE | 2024-11-27 13:55 | CHAPLAIN ---
Type of Pastoral Visit _x__ Initial Visit ___ Follow-up Visit ___ On-call Visit ___ General Patient Visit ___ Spiritual Assessment ___ Family Conference ___ Bereavement ___ Rapid Response ___ Code Blue ___ Other (describe below) Pastoral Care Referral From _x__ Patient ___ Family ___ Nurse ___ Physician ___ Ear Nose Throat Physician ___ Manager Call ___ Other (describe below) Sacrament/Intervention _x__ Active listening ___ Anointing ___ Voodoo ___ Bereavement ___ Communion _x__ Audelia exploration ___ _x__ Life review _x__ Prayer ___ Reconciliation ___ Sacrament of Sick _x__ Supportive presence ___ Wedding ___ Other (describe below) Pastoral Comments patient is talkative about her surgery, pain levels, and planned recovery; pt is quite talkative about her professional life in a variety of [place] and having lived most of her life in [place]; pt has professional recognition; pt also has been vandalized in her home in [place]; pt was also very involved in the aftermath of care and recovery and speaks of her own grief and trauma through that; pt has a therapist that she became connected with for her mental health; pt has goals for what she wants to yet accomplish in life; pt has some discouragement from relationships in her past congregational but has plans to attend another congregational which is of her childhood background; pt asks for a prayer and then expresses thanks for the same
--- NOTE | 2024-11-27 14:58 | CASEMGMT ---
Social Work- SW met with pt to follow up on SDOH needs. Pt reports no needs at this time, as she has spoken with police regarding the matter. Pt reports that she has been estranged from the adventism because of this matter, but continues to have close friends for support and is seeking out a new adventism. Pt asked to complete new HCPOA. Pt named friend primary agent. SW completed and placed a copy on the chart along with copies for pt agents and providing pt with the original. KARMEN remains available to follow for any discharge needs. PEDRO Baker
--- NOTE | 2024-11-27 15:09 | CASEMGMT ---
BROWN GUZMAN Assessment Face to Face with patient for initial transition planning/care coordination assessment. BROWN GUZMAN introduced self and role at [facility], pt voices understanding. Pt is A&Ox4 and is resting comfortably in bed and is calm. Care providers, pharmacy, and demographics verified. Admitting dx: Right reverse total shoulder arthroplasty LACE Strata: 2 PCP: Perry Peoples Specialists: ROSALVA, Pal (Ortho), Tobi Hernandez (Pulmonary), Shahab (Neuro) Preferred Pharmacy: [facility] Insurance: [facility] A/B, AARP Prescription Benefit: Yes LNOK: Han Richards (Godfather), Miller Crowder (Brother) Living Arrangements: Pt lives alone in a single story home with a basement with one step to enter with a first floor set up. ADLs/IADLs: Pt states that she is independent Transportation: Self, brother. Denies concerns DME: Functioning B[employer] with sufficient supplies. Cane, grab bars, sling, medical alert sytem. HHC/SNF: Reports history at [place]. Denies HH Hx Pt?s goal: Home Plan: Home and to f/u with Orthopaedics in 2 weeks and start OP PT then. Per the PA, HH is recommended. This RN MEGAN notified the pt of this who declines the service. Pt states that her house is currently a disaster due to being unable to bend down and clean. Pt states that she hired a cleaning company to come clean her home on the . Pt states that feels safe returning home once she is medically ready and plans to follow up as an OP. Pt reports that she has been given exercises to perform at home already. Pt also requests SW f/u as she wants to complete additional Living Will paperwork. MS3 BROWN GUZMAN and KARMEN Garcia RN, CM
--- NOTE | 2024-11-27 15:34 | PCM.HOSP.N ---
Hospitalist Note Patient is doing well clinically. Her only issue is pain control. Labs are stable and vital signs are good. I will plan to sign off. Case was discussed with Dr. Aguillon and he plans on discharging her tomorrow after pain control is a little bit improved. I did request that he reconsult if needed. Will sign off and okay for discharge home from medical standpoint.
[2024-11-27 16:43] LABS: Bedside Glucose 152 mg/dL (74-106)
[2024-11-27] MEDS: Montelukast 10 MG Tablet PO (21:15)
[2024-11-27] MEDS: QUEtiapine 100 MG Tablet 200 MG PO (21:15)
[2024-11-27] MEDS: Citalopram 10 MG Tablet 30 MG PO (21:16)
[2024-11-27] MEDS: Atorvastatin Calcium 20 MG Tablet PO (21:16)
[2024-11-27] MEDS: ALPRAZolam 0.5 MG Tablet 1 MG PO (21:20)
--- NOTE | 2024-11-27 21:38 | CPS ---
Patient wears home CPAP, [facility] offered a CPAP machine for her stay here, patient refused and will wear Oxygen HS instead
[2024-11-28] VITALS (7 sets, daily range): BP systolic 102–128; BP diastolic 52–78; PULSE 76–87; RESP 14–18; TEMP 36.5–36.7; O2SAT 90–99
[2024-11-28 00:37] LABS: Bedside Glucose 151 mg/dL (74-106)
[2024-11-28] MEDS: Acetaminophen 500 MG Tablet 1000 MG PO ×3 (01:45→17:22)
[2024-11-28] MEDS: oxyCODONE 5 MG Tablet PO ×4 (01:48→17:22)
[2024-11-28 06:32] LABS: Bedside Glucose 113 mg/dL (74-106)
[2024-11-28] MEDS: Budesonide Respules 0.5 MG/2 ML AMPUL.NEB. INHALATION (06:55)
[2024-11-28] MEDS: Ipratropium/Albuterol Sulfate 3 ML AMPUL.NEB INHALATION ×2 (06:55→15:33)
[2024-11-28] MEDS: Meloxicam 7.5 MG Tablet PO (08:17)
[2024-11-28] MEDS: Metoprolol Tartrate 25 MG Tablet PO (08:17)
[2024-11-28] MEDS: Aspirin E.C. 81 MG Tablet PO ×2 (08:17→17:23)
[2024-11-28] MEDS: Venlafaxine XR 75 MG Capsule 225 MG PO (08:18)
[2024-11-28] MEDS: levETIRAcetam 750 MG Tablet 375 MG PO (08:18)
[2024-11-28] MEDS: Meclizine HCl 25 MG Tablet PO (08:18)
[2024-11-28] MEDS: hydroCHLOROthiazide 12.5mg 12.5 MG PO (08:18)
[2024-11-28] MEDS: Leflunomide 10 MG TABLET 20 MG PO (08:18)
[2024-11-28] MEDS: Potassium Chloride Oral Tablet 20 MEQ PO (08:19)
[2024-11-28] MEDS: Pregabalin 75 MG Capsule PO (08:23)
[2024-11-28 11:32] LABS: Bedside Glucose 149 mg/dL (74-106)
--- NOTE | 2024-11-28 13:19 | PHA.DC_ITS ---
Pharmacy [facility] has performed discharge medication reconciliation and counseling for this patient. 1. ACETAMINOPHEN 1000MG PO Q8 2. DOXYCYCLINE 100MG PO BID X 7 DAYS 3. OXYCODONE 5-10MG PO Q4H PRN PAIN 4. SENNA/DOCUSATE 2T PO BID 5. ASPIRIN 81MG PO BID X 2 WEEKS, THEN RESUME DAILY 12/13 The patient's discharge medication list was reviewed for discrepancies and discrepancies were resolved. The patient was counseled on the following discharge medications and changes in medications for homegoing were reviewed. The Reason for Use, instructions for use, and potential side effects were reviewed for all new medications. The patient's questions regarding all of their medications were answered. The patient was able to verbally demonstrate an understanding of their discharge medications. Medications at Discharge Home Medications fluticasone 500 mcg-salmeterol 50 mcg/dose blistr powdr for inhalation (Advair Diskus) 1 puff inhalation BID shortness of breath 01/23/15 albuterol sulfate 90 mcg/actuation aerosol inhaler (ProAir HFA) 1 - 2 puff inhalation Q4H PRN Asthma 04/15/15 montelukast 10 mg tablet 10 mg PO QHS allergies 04/15/15 atorvastatin 20 mg tablet 20 mg PO QHS cholesterol 09/23/22 citalopram 40 mg tablet 30 mg PO QHS sleep 09/23/22 empagliflozin 10 mg tablet (Jardiance) 10 mg PO DAILY diabetes 09/23/22 hydrochlorothiazide 12.5 mg tablet 12.5 mg PO DAILY blood pressure 09/23/22 leflunomide 20 mg tablet 20 mg PO DAILY inflammation 09/23/22 levetiracetam 750 mg tablet,extended release 24 hr 750 mg PO QHS seizures 09/23/22 losartan 100 mg tablet 100 mg PO QHS blood pressure 09/23/22 metformin 500 mg tablet 500 mg PO DAILY diabetes 09/23/22 ondansetron HCl 4 mg tablet 4 mg PO Q8H PRN Nausea 09/23/22 potassium chloride 20 mEq tablet,extended release 20 meq PO DAILY potassium 09/23/22 quetiapine 100 mg tablet 200 mg PO QHS mood disorder 09/23/22 tiotropium bromide 2.5 mcg/actuation mist for inhalation (Spiriva Respimat) 2 puff inhalation DAILY shortness of breath 09/23/22 meclizine 25 mg tablet 25 mg PO BID dizziness 11/26/22 venlafaxine 150 mg capsule,extended release 24 hr 225 mg PO DAILY mood 12/15/22 aspirin 81 mg tablet,delayed release (Adult Low Dose Aspirin) 81 mg PO DAILY heart 01/06/23 Held on 11/28/24. Instructions: Resume on 12/13/24. guaifenesin 600 mg tablet, extended release 12 hr (Mucinex) 600 mg PO BID PRN congestion 04/29/23 prednisone 20 mg tablet 5 mg PO DAILY PRN pain 04/29/23 fluticasone propionate 50 mcg/actuation nasal spray,suspension 1 spray intranasal DAILY allergy symptoms 10/12/23 alprazolam 0.5 mg tablet 0.5 mg PO DAILY PRN Anxiety #10 tabs 10/18/23 alprazolam 1 mg tablet 1 mg PO QHS #20 tabs 10/18/23 pregabalin 75 mg capsule 75 mg PO BID 01/17/24 metoprolol tartrate 25 mg tablet 25 mg PO BID #180 tabs 05/30/24 furosemide 40 mg tablet 20 mg (1/2 x 40 mg) PO DAILY PRN edema #30 tabs 07/16/24 tirzepatide 5 mg/0.5 mL subcutaneous pen injector (Mounjaro) 5 mg subcut QWEEK 11/22/24 acetaminophen 500 mg tablet 1,000 mg (2 x 500 mg) PO Q8H #180 tabs 11/28/24 aspirin 81 mg tablet,delayed release 81 mg PO BIDCM 2 weeks #28 tabs 11/28/24 doxycycline monohydrate 100 mg capsule 100 mg PO BID 7 days #14 caps 11/28/24 oxycodone 5 mg tablet 5 - 10 mg (1 - 2 x 5 mg) PO Q4H PRN PRN Pain Score 4-10 7 days #30 tabs 11/28/24 sennosides 8.6 mg-docusate sodium 50 mg tablet (Stimulant Laxative Plus) 2 tab PO BID #14 tabs 11/28/24
--- NOTE | 2024-11-28 16:22 | NURSING ---
All documentation by nursing associate Armond Singh reviewed by chief nursing officer Analia MEYERN, RN.
[2024-11-28 16:51] LABS: Bedside Glucose 141 mg/dL (74-106)
== END 2024-11-28 17:29 | disposition home or self-care (01) ==
LOC: SDC 12:57 → MS3 12:57
PROVIDERS: Admitting Provider Student in an Organized Health Care Education/Training Program; PCP Family Medicine; Referring Provider Student in an Organized Health Care Education/Training Program; Visit Provider Student in an Organized Health Care Education/Training Program
PROC: (CPT 23472; principal; 2024-11-26 08:55)
DX: S42.201K Unspecified fracture of upper end of right humerus, subsequent encounter for fracture with nonunion (principal); G40.909 Epilepsy, unspecified, not intractable, without status epilepticus; E11.9 Type 2 diabetes mellitus without complications; W19.XXXA Unspecified fall, initial encounter; M19.011 Primary osteoarthritis, right shoulder; I10 Essential (primary) hypertension; J45.909 Unspecified asthma, uncomplicated; F32.A Depression, unspecified; Z79.82 Long term (current) use of aspirin; Z79.84 Long term (current) use of oral hypoglycemic drugs; Z79.899 Other long term (current) drug therapy; F41.9 Anxiety disorder, unspecified; M35.00 Sjogren syndrome, unspecified
CPT/HCPCS: 23472; 01638; 64415; 36415; 73020; 73030; 76000; 80048; 82040; 82962; 83036; 83735; 85025; 85027; 87081; 88304; 88305; 88311; 94640; 94668; 96361; 96365; 96366; 97110; 97166; 99221; C1713; C1776; A4216; G0378; J2405; J3475

== ENCOUNTER 2025-05-01 02:41 | Emergency (ER) | payer MEDICARE, OTHER, SELFPAY ==
[2025-05-01 02:43] VITALS: BP 106/71; PULSE 72; RESP 18; TEMP 36.6; O2SAT 99; BMI 34.4
--- NOTE | 2025-05-01 02:48 | EX.ED.DYSGE1 ---
HPI History of Present Illness Chief Complaint: General Illness Detail of Chief Complaint: Vertigo, nausea, thirst and dry mouth and history of frequent UTIs Informant: patient and EMS Onset/Context/Timing Onset: Today Context: Sudden Onset Timing: Intermittent Quality: Vertigo with change in position lasting less than 30 seconds Location: History of paroxysmal benign positional vertigo and other symptoms Current Severity: Gone Maximum Severity: Severe Worsened by: Change in position from supine to upright Relieved by: Remaining still Associated Symptoms Associated Symptoms: Nausea and HPI narrative Narrative Narrative: Patient is a 74-year-old woman. She has history of Sjogren's, hyperlipidemia, benign paroxysmal positional vertigo, posttraumatic stress disorder, hypertension, gout and Lyme disease. She had surgery on her right third toe by Dr. Dela Cruz. This was performed at his office. Records are not available for review. She cannot be more specific. She was prescribed doxycycline. Based on medication list patient also has history of type 2 diabetes. Patient states she does not feel well. She denies fever, chills night sweats. She does complain of bilateral headache. She denies double vision, blurred vision loss of vision. She has chronic ringing in her ears. Denies decreased hearing. She does endorse thirst and dry mouth. She inform me that she has Sjogren's disease. She denies sore throat. She denies chest discomfort of any type. She denies dyspnea or dyspnea on exertion. Denies orthopnea or PND. She denies abdominal pain. She does endorse nausea without vomiting or diarrhea. She has no black or maroon-colored stool. She does admit to frequency and urgency. She has been diagnosed recently of UTI, Klebsiella species. She also has positive cultures for E. coli. Her most recent diagnosis was March 25, 2025. Prior similar symptoms: Yes Recent Illness/Hospitalization: Yes [facility] Medical History Shingles Discoloration of skin Kidney stones Injury of back Injury of head and neck Shortness of breath on exertion Syncope Fall Fracture of proximal end of right humerus Cataract (lens) fragments in eye following cataract surgery, bilateral MRSA infection Post-menopausal Depression Anxiety History of steroid therapy Diabetes Walker as ambulation aid Ambulates with cane Osteoarthritis Arthritis Easy bruising High cholesterol Restless legs Seizures Blackout Dietary restriction Non-smoker CPAP (continuous positive airway pressure) dependence History of edema History of echocardiogram History of stress test Cardiology follow-up encounter Abnormal stress test Sjogren's disease Sinusitis Sinus arrhythmia Rheumatoid arthritis Obesity Atherosclerotic heart disease of [place] coronary artery without angina pectoris First degree atrioventricular block Other detention (current) drug therapy Nicotine dependence in remission Post traumatic stress disorder Gout Lyme disease Sleep apnea Hypertension Asthma Home Medications ?Medication ?Instructions ?Recorded ?Last Taken ?Type fluticasone 500 mcg-salmeterol 50 1 puff inhalation BID shortness of 01/23/15 11/25/24 History mcg/dose blistr powdr for breath inhalation (Advair Diskus) albuterol sulfate 90 mcg/actuation 1 - 2 puff inhalation Q4H PRN 04/15/15 11/25/24 History aerosol inhaler (ProAir HFA) Asthma montelukast 10 mg tablet 10 mg PO QHS allergies 04/15/15 11/25/24 History atorvastatin 20 mg tablet 20 mg PO QHS cholesterol 09/23/22 11/25/24 History citalopram 40 mg tablet 30 mg PO QHS sleep 09/23/22 11/25/24 History empagliflozin 10 mg tablet 10 mg PO DAILY diabetes 09/23/22 11/22/24 History (Jardiance) hydrochlorothiazide 12.5 mg tablet 12.5 mg PO DAILY blood pressure 09/23/22 11/25/24 History leflunomide 20 mg tablet 20 mg PO DAILY inflammation 09/23/22 11/26/24 History levetiracetam 750 mg 750 mg PO QHS seizures 09/23/22 11/25/24 History tablet,extended release 24 hr losartan 100 mg tablet 100 mg PO QHS blood pressure 09/23/22 11/25/24 History metformin 500 mg tablet 500 mg PO DAILY diabetes 09/23/22 11/23/24 History ondansetron HCl 4 mg tablet 4 mg PO Q8H PRN Nausea 09/23/22 Unknown History potassium chloride 20 mEq 20 meq PO DAILY potassium 09/23/22 11/25/24 History tablet,extended release quetiapine 100 mg tablet 200 mg PO QHS mood disorder 09/23/22 11/25/24 History tiotropium bromide 2.5 2 puff inhalation DAILY shortness 09/23/22 11/25/24 History mcg/actuation mist for inhalation of breath (Spiriva Respimat) meclizine 25 mg tablet 25 mg PO BID dizziness 11/26/22 11/26/24 History venlafaxine 150 mg 225 mg PO DAILY mood 12/15/22 11/25/24 History capsule,extended release 24 hr aspirin 81 mg tablet,delayed 81 mg PO DAILY heart 01/06/23 11/22/24 History release (Adult Low Dose Aspirin) Held on 11/28/24. Instructions: Resume on 12/13/24. guaifenesin 600 mg tablet, 600 mg PO BID PRN congestion 04/29/23 Unknown History extended release 12 hr (Mucinex) prednisone 20 mg tablet 5 mg PO DAILY PRN pain 04/29/23 Unknown History fluticasone propionate 50 1 spray intranasal DAILY allergy 10/12/23 11/25/24 History mcg/actuation nasal symptoms spray,suspension alprazolam 0.5 mg tablet 0.5 mg PO DAILY PRN Anxiety #10 10/18/23 11/25/24 Rx tabs alprazolam 1 mg tablet 1 mg PO QHS #20 tabs 10/18/23 11/25/24 Rx pregabalin 75 mg capsule 75 mg PO BID 01/17/24 11/25/24 History metoprolol tartrate 25 mg tablet 25 mg PO BID #180 tabs 05/30/24 11/23/24 Rx furosemide 40 mg tablet 20 mg (1/2 x 40 mg) PO DAILY PRN 07/16/24 Unknown Rx edema #30 tabs tirzepatide 5 mg/0.5 mL 5 mg subcut QWEEK 11/22/24 11/17/24 History subcutaneous pen injector (Mounjaro) acetaminophen 500 mg tablet 1,000 mg (2 x 500 mg) PO Q8H #180 11/28/24 Unknown Rx tabs aspirin 81 mg tablet,delayed 81 mg PO BIDCM 2 weeks #28 tabs 11/28/24 Unknown Rx release doxycycline monohydrate 100 mg 100 mg PO BID 7 days #14 caps 11/28/24 Unknown Rx capsule oxycodone 5 mg tablet 5 - 10 mg (1 - 2 x 5 mg) PO Q4H 11/28/24 Unknown Rx PRN PRN Pain Score 4-10 7 days #30 tabs sennosides 8.6 mg-docusate sodium 2 tab PO BID #14 tabs 11/28/24 Unknown Rx 50 mg tablet (Stimulant Laxative Plus) amoxicillin 875 mg-potassium 1 tab PO BID #14 tabs 03/25/25 Unknown Rx clavulanate 125 mg tablet diazepam 2 mg tablet (Valium) 2 mg PO TID 3 days #9 tabs 05/01/25 Unknown Rx Allergy/AdvReac Type Severity Reaction Status Date / Time lactose Allergy Severe Vomiting Verified 05/01/25 02:47 Sulfa (Sulfonamide Allergy Hives Verified 05/01/25 02:47 Antibiotics) tree nut Allergy Anaphylaxis Verified 05/01/25 02:47 Rabbit AdvReac Severe NEEDS Verified 05/01/25 02:47 FOLLOW-UP sulfamethoxazole (From AdvReac Severe Skin Verified 05/01/25 02:47 Bactrim) rashes & blisters trimethoprim (From Bactrim) AdvReac Severe Skin Verified 05/01/25 02:47 rashes & blisters codeine AdvReac Other Verified 05/01/25 02:47 Environmental Allergies: AdvReac NEEDS Verified 05/01/25 02:47 Uncoded FOLLOW-UP erythromycin base AdvReac Upset Verified 05/01/25 02:47 Stomach milk (dairy) AdvReac Upset Verified 05/01/25 02:47 Stomach morphine AdvReac Nausea Verified 05/01/25 02:47 Family History Mother Diabetes Hypertension Heart disease Father Diabetes Hypertension Heart disease Cancer Brother Heart disease Hypertension Atrial fibrillation Obesity Grandmother AAA (abdominal aortic aneurysm) Grandfather Heart disease Grandmother Cancer Surgical History Status post reverse total arthroplasty of right shoulder Hx of toe surgery History of amputation of toe History of coronary artery stent placement History of cardiac catheterization History of knee replacement History of shoulder replacement Stented coronary artery (01/26/23) History of tonsillectomy H/O shoulder surgery History of arthroscopic knee surgery Social History Smoking Status: Never smoker alcohol intake: former substance use type: does not use ROS ROS ED Constitutional Constitutional ED: Denies chills, fever(s), subjective or sweats Eyes Eyes: Denies blurry vision, change in vision or diplopia ENT ENT ED: Reports other Details: Further detailed HPI narrative ; Denies ear pain, rhinorrhea or sore throat Cardiovascular Cardiovascular: Denies chest pain, orthopnea, palpitations, paroxysmal nocturnal dyspnea or racing heartbeat Respiratory/Chest Respiratory/Chest: Denies cough, dyspnea, dyspnea on exertion, orthopnea or paroxysmal nocturnal dyspnea Gastrointestinal Gastrointestinal: Reports nausea; Denies abdominal pain, diarrhea, melena or vomiting Genitourinary Genitourinary ED: Reports urinary frequency; Denies dysuria or hematuria Musculoskeletal Musculoskeletal: Denies arthralgias, back pain or myalgias Integumentary Denies rash Neurologic Neurologic: Reports headache(s) and weakness; Denies paresthesias Endocrine Endocrinology: Denies cold intolerance or heat intolerance Hematologic/Lymphatic Hematologic/Lymphatic: Reports systems reviewed and no addt'l complaints, except as documented EXAM Physical Exam Const Vital Signs: 05/01/25 02:43 05/01/25 02:48 05/01/25 04:42 Temperature 98 F Temperature Source Oral Pulse Rate 72 75 Respiratory Rate 18 15 Respiratory Effort Normal Non-Labored Respiratory Pattern Normal Blood Pressure 106/71 Blood Pressure Mean 82 Pulse Ox 99 97 Oxygen Delivery Method Room Air Room Air Positive well nourished and well developed Constitutional Narrative: Patient appears slightly pale. She is having difficulty speaking because her tongue is dry and sticks to the roof of her mouth. General Appearance ED: well developed and NAD HEENT Reports dry mucous membranes HEENT Narrative: Head is atraumatic no cephalic. There is no tenderness over the temporal arteries. Ears normal. TMs normal. Nares patent. Posterior pharynx is normal. Mouth ED: Yes dry mucous membranes Mouth: dry mucous membranes Eyes PERRL and EOMs intact bilaterally Eyes Narrative: Patient has horizontal nystagmus with lateral gaze to the right as well as left. This would be indicative of paroxysmal benign positional vertigo. This is not a central process. General Eye ED: Negative for pale conjunctiva or scleral icterus Neck no lymphadenopathy, supple and no JVD Chest Wall inspection of chest normal and palpation of chest normal Resp normal respiratory effort and clear to auscultation bilaterally Cardio regular rate, regular rhythm, S1 normal heart sound, S2 normal heart sound and no murmurs GI normal to inspection, nondistended, normoactive bowel sounds, non-distended and no masses; Negative for non-tender or hepatosplenomegaly Palpation: soft and tender suprapubic Extremity Extremity Narrative: Patient right foot is wrapped. Part of the dressing was removed to expose the toe. There is no evidence of infection. Neuro oriented x3, CN's II-XII intact bilaterally and no sensory deficits noted Neuro Narrative: There is no dysmetria right or left. There is no clonus either side.. There is no Babinski sign noted right or left. Sensorium / Orientation: alert Psych mental status grossly normal Skin Skin Narrative: Her postoperative wound without evidence of infection there is some slight dried blood noted on the gauze dressing covering the toe. MDM MDM MDM Narrative Medical decision making narrative: Patient's dizziness/vertigo is consistent with benign paroxysmal positional vertigo. Since nurses are establishing IV and obtain blood work [place]-Hallpike maneuver was not performed. With her history of frequent urinary tract infections and urinary symptoms we will obtain straight cath urine as well as blood work to assess renal function, glucose and electrolytes. Also to assess white count and differential since her differential would include urinary tract infection, dehydration. Lab Data Attestation: I reviewed the patient's lab results. Lab results narrative: CBC is unremarkable. Urinalysis reveals clear yellow appearing urine. Macros positive for protein and glucose. 7 gravity is 1.020. Micro is pending. Urine microscopic is unremarkable. There were 0 reds, 0 white cells, 0 epithelial and rare bacteria. This is negative. Basic metabolic panel was noted BUN/creatinine 29 and 1.21. This is approximately patient's baseline. Glucose is elevated 182 with a normal anion gap. Labs: Laboratory Results - last 24 hr 05/01/25 05/01/25 02:52 03:10 WBC 8.3 RBC 4.93 Hgb 12.7 Hct 41.0 MCV 83.2 MCH 25.8 L MCHC 31.0 L RDW Std Deviation 49.9 H RDW Coeff of Anali 16.6 H Plt Count 217 MPV 9.6 Immature Gran % (Auto) 1.000 H Neut % (Auto) 73.5 H Lymph % (Auto) 14.5 L Russell % (Auto) 6.7 Eos % (Auto) 3.7 Baso % (Auto) 0.6 Absolute Neuts (auto) 6.1 Absolute Lymphs (auto) 1.21 Nucleated RBC % 0 Sodium 138 Potassium 4.4 Chloride 105 Carbon Dioxide 19.9 L Anion Gap 13 BUN 29 H Creatinine 1.21 H Estim Creat Clear Calc 48.60 L Est GFR (MDRD) Non-Af 47 L BUN/Creatinine Ratio 23.7 H Glucose 182 H Calcium 8.6 Urine Color Yellow Urine Clarity Clear Urine pH 6.0 Ur Specific [place] 1.020 Urine Protein 15 H Urine Glucose (UA) 1000 H Urine Ketones Negative Urine Occult Blood Negative Urine Nitrite Negative Urine Bilirubin Negative Urine Urobilinogen Normal Ur Leukocyte Esterase Negative Urine RBC 0 SEEN Urine WBC 0 SEEN Ur Squamous Epith Cells 0 SEEN Ur Renal Epithelial Cell 0-5 SEEN Urine Bacteria RARE Urine Mucus 0 SEEN Treatment and Re-Evaluation :: Patient was reassessed at 0452. Her vertigo has improved markedly with Valium. Since this is positional vertigo will discharge with Valium. She states she has no one at home to pick her up. Nurse has been asked to make arrangements for transportation to her house. Discharge Plan Triage Chief Complaint: General Illness ED Provider: Lul Gonzales Dx/Rx/DC Orders Clinical Impression: Benign paroxysmal positional vertigo, Prerenal azotemia, Acute renal insufficiency, Acute hyperglycemia, Generalized weakness Instructions: ED BPV Vertigo Prescriptions: New diazepam [Valium] 2 mg tablet 2 mg PO TID 3 Days Qty: 9 0RF No Action meclizine 25 mg tablet 25 mg PO BID hydrochlorothiazide 12.5 mg tablet 12.5 mg PO DAILY citalopram 40 mg tablet 30 mg PO QHS levetiracetam 750 mg tablet extended release 24 hr 750 mg PO QHS ondansetron HCl 4 mg tablet 4 mg PO Q8H PRN (Reason: Nausea) atorvastatin 20 mg tablet 20 mg PO QHS Spiriva Respimat 2.5 mcg/actuation mist 2 puff inhalation DAILY potassium chloride 20 mEq tablet extended release 20 meq PO DAILY metformin 500 mg tablet 500 mg PO DAILY Jardiance 10 mg tablet 10 mg PO DAILY Patient Comments: pt states she only takes as neeeded leflunomide 20 mg tablet 20 mg PO DAILY guaifenesin [Mucinex] 600 mg tablet extended release 12hr 600 mg PO BID PRN (Reason: congestion) venlafaxine 150 mg capsule,extended release 24hr 225 mg PO DAILY prednisone 20 mg tablet 5 mg PO DAILY PRN (Reason: pain) Rx Instructions: x5days amoxicillin-pot clavulanate 875-125 mg tablet 1 tab PO BID Qty: 14 0RF fluticasone propion-salmeterol [Advair Diskus] 1 EACH blister with device 1 puff inhalation BID Patient Comments: RINSE AND GARGLE MOUTH WITH WATER AFTER EACH USE. montelukast 10 MG tablet 10 mg PO QHS albuterol sulfate [ProAir HFA] 1 PUFF inhaler 1 - 2 puff inhalation Q4H PRN (Reason: Asthma) losartan 100 mg tablet 100 mg PO QHS quetiapine 100 mg tablet 200 mg PO QHS Patient Comments: pt states she takes 1 at night if needed fluticasone propionate 50 mcg/actuation spray,suspension 1 spray intranasal DAILY Rx Instructions: administer into each nostril pregabalin 75 mg capsule 75 mg PO BID Mounjaro 5 mg/0.5 mL pen injector 5 mg SUBCUT QWEEK Patient Comments: LAST DOSE 11/17/24 acetaminophen 500 mg Tablet 1,000 mg PO Q8H Qty: 180 0RF aspirin 81 mg Tablet,Delayed Release (Dr/Ec) 81 mg PO BIDCM 14 Days Qty: 28 0RF oxycodone 5 mg Tablet 5 - 10 mg PO Q4H PRN PRN (Reason: Pain Score 4-10) 7 Days Qty: 30 0RF sennosides-docusate sodium [Stimulant Laxative Plus] 8.6-50 mg Tablet 2 tab PO BID Qty: 14 0RF doxycycline monohydrate 100 mg capsule 100 mg PO BID 7 Days Qty: 14 0RF aspirin [Adult Low Dose Aspirin] 81 mg tablet,delayed release (DR/EC) 81 mg PO DAILY Patient Comments: ASK DR. RODRIGUEZ RE:STOPPING alprazolam 0.5 mg tablet 0.5 mg PO DAILY PRN (Reason: Anxiety) Qty: 10 0RF alprazolam 1 mg tablet 1 mg PO QHS Qty: 20 0RF metoprolol tartrate 25 mg tablet 25 mg PO BID Qty: 180 3RF furosemide 40 mg tablet 20 mg PO DAILY PRN (Reason: edema) Qty: 30 11RF Primary Care Provider: Perry Peoples Referrals: Perry Peoples MD [Primary Care Provider] - As Needed Print Language: [place]ian Disposition Disposition: Home, Self Care
[2025-05-01 03:03] LABS: Hematocrit 41.0 % (37-47); Hemoglobin 12.7 g/dL (12.0-15.0); Immature Granulocytes Count 0.080 X10^3/uL (0.0-0.0); Mean Corp Hgb Conc 31.0 g/dL (32-36); Mean Corpuscular Volume 83.2 fL (81-99); Mean Platelet Vol. 9.6 fl (6.2-12.0); NRBC Flagged by Analyzer 0 % (0-5); Platelet Count 217 K/mm3 (150-450); RBC Distribution Width CV 16.6 % (11.6-14.6); RBC Distribution Width SD 49.9 fl (35.1-43.9); Red Blood Count 4.93 M/mm3 (4.2-5.4); White Blood Count 8.3 K/mm3 (4.4-11.0)
[2025-05-01 03:15] LABS: Mucous, Urine 0 SEEN /hpf (<or=2+); Red Blood Cells-Urine 0 SEEN /hpf (0-5); Squamous Epithelial Cells - UA 0 SEEN /hpf (5-10)
[2025-05-01 03:19] LABS: Color, Urine Yellow (Yellow); Glucose, Dipstick 1000 mg/dl (Normal); Ketone-Dipstick Negative (Negative); Leukocyte Esterase-Dipstick Negative /ul (Negative); Nitrite-Dipstick Negative (Negative); Occult Blood-Urine Negative /ul (Negative); Protein-Dipstick 15 mg/dl (Negative); Specific Gravity, Urine 1.020 (1.002-1.030); Urine Bilirubin Dipstick Negative (Negative)
[2025-05-01 03:28] LABS: Anion Gap 13 (5-15); BUN 29 mg/dL (4-19); BUN/Creat Ratio 23.7 RATIO (10-20); Calcium,Total 8.6 mg/dL (7.6-11.0); Carbon Dioxide 19.9 mmol/L (21.0-32.0); Chloride 105 mmol/L (98-108); Estimated Creatinine Clearance 48.60 ml/min (50-250); Glucose 182 mg/dL (70-99); Potassium 4.4 mmol/L (3.3-5.1)
--- NOTE | 2025-05-01 03:32 | ED.RN ---
normal saline bolus infusing,previous nurse stuck in the charting of the fluids and has sent gone home.
[2025-05-01] MEDS: 0.9% Normal Saline (1000mL) 1,000 ML 1000 ML IV (03:45)
--- OUTSIDE RECORDS SUMMARY | 2025-05-01 04:11 | XMS RPT_ITS | CCD ---
Author Organization [facility] Care Team Providers Care Clinical Laboratory Technician Name Role Phone SUBHA BAKER Unavailable [...] Primary Care Provider Davion Peoples MD Unavailable Dr. Ruel Peoples Primary Care Provider Theron Oliver Attending Provider Unavailable Dr. Ruel Peoples Primary Care Provider Theron Oliver Attending Provider Unavailable Dr. Ruel Peoples Referring Provider Dr. Gus Blue Attending Provider [phone] Ruel Peoples Primary Care Provider Dr. Gus Blue Referring Provider [phone] Dr. Gus Blue Other Provider Kirit MORALEZ, MATT Jimenez Attending Provider Jaime ALBERT, PA Kacey Blackman Attending Provider Davion Peoples MD Primary Care Provider Dr. Rule Peoples Primary Care Provider Mirza, Dr. Weber Attending Provider [phone] Ruel Peoples Referring Provider Dr. Ruel Peoples Primary Care Provider Dr. Gus Blue Other Provider Dr. Gus Blue Attending Provider [phone] Cesar Desouza Attending Provider [phone] Ruel Peoples Primary Care Provider Kirit BARREL LEVELER, BARREL LEVELER-C Barbara Attending Provider Dr. Ruel Peoples Primary Care Provider Kirit BARREL LEVELER, BARREL LEVELER-C Barbara Referring Provider Dr. Ruel Peoples Primary Care Provider Dr. Ruel Peoples Referring Provider Kirit BARREL LEVELER, BARREL LEVELER-C Barbara Attending Provider Dr. Cesar Desouza Attending Provider [phone] Kirit BARREL LEVELER, BARREL LEVELER-C Barbara Referring Provider Davion Peoples MD Primary Care Provider Davion Peoples MD Unavailable Dr. Ruel Peoples Primary Care Provider Dr. Ruel Peoples Referring Provider Kirit BARREL LEVELER, BARREL LEVELER-C Barbara Attending Provider Dr. Gus Blue Attending Provider [phone] Elayne Baker Referring Provider Dr. Cesar Palencia Emergency Provider Dr. Elayne Baker Admit Provider Dr. Elayne Baker Other Provider Austen, Dr. Viry Ocampo Attending Provider Austen, Dr. Viry Ocampo Other Provider Dr. Davion Peoples Primary Care Provider Dr. Gus Blue Attending Provider Dr. Elayne Baker Referring Provider Dr. Cesar Palencia Emergency Provider Samuel, Dr. Holly Admit Provider Dr. Elayne Baker Other Provider Austen, Dr. Viry Ocampo Attending Provider Kor, Dr. Viry Ocampo Other Provider Juice BARREL LEVELER, BARREL LEVELER-C Kiera Attending Provider Dr. Michell Silvestre Attending Provider Dr. Davion Peoples Referring Provider Dr. Steven Joyce Attending Provider Davion Peoples MD Primary Care Provider Dr. Davion Peoples MD Primary Care Provider Dr. Davion Peoples MD Attending Provider Dr. Davion Peoples MD Referring Provider [phone] Jaime ALBERT, Kacey Blackman Attending Provider Pal RIOS, Dr. Morales Admit Provider Dr. Andrew Rodriguez DO Attending Provider Dr. Andrew Rodriguez DO Referring Provider Dr. Andrew Fox MD Other Provider Dr. Danyelle Perez DO Other Provider Dr. Andrew Rodriguez DO Other Provider Dominique DYE, Dr. Andrew Choe Attending Provider Dr. Danyelle Perez DO Attending Provider HELEN, THOMASER B Primary Care Unavailabl e KANDICE JUNG Attending Unavailable RANNEY, CHRISTOPHER B Primary Care Unavailabl e DARIEN GUDINO JR Referring Unavailable RANMONET, CHRISTOPHER B Primary Care Unavailabl e DARIEN GUDINO JR Referring Unavailable GUDINODARIEN CESPEDES JR Attending Unavailable RANNEY, CHRISTOPHER B Primary Care Unavailabl SHEELA Williamson Attending Unavailable ANALIA RIVERA Referring Unavailable RANNEY, CHRISTOPHER B Primary Care Unavailabl e ANALIA RIVERA Attending Unavailable THERON EDEN Referring Unavailable RANNEY, CHRISTOPHER B Primary Care Unavailabl amy Peoples MD, Dr. Amador Primary Care Provider Dr. Davion Peoples MD Referring Provider Subha Handy Attending Provider Ranmonet, Christopher Primary Care Unavailable Barbara Beth NP Attending Unavailable Ranney, Christopher Referring Unavailable Kacey Garner Attending Unavail able Ranney, Christopher Primary Care Unavailable Ranney, Christopher Referring Unavailable Ranney, Christopher Primary Care Unavailable Barbara Beth NP Attending Unavailable Andrew Rodriguez Referring Unavailable Andrew Rodriguez Attending Unavailable Ranney, Christopher Primary Care Unavailable Ranney, Christopher Referring Unavailable Ranney, Christopher Primary Care Unavailable Kacey Garner Attending Unavail able Ranney, Christopher Primary Care Unavailable Gus Blue Attending Unavailable Ranney, Christopher Referring Unavailable Ranney, Christjavierer Attending Unavailable Ranney, Christopher Primary Care Unavailable Andrew Rodriguez Attending Unavailable Ranney, Christopher Primary Care Unavailable Radha Moore Referring Unavailable Radha Moore Attending Unavailable Ranney, Christopher Primary Care Unavailable Deepa Rodriguezs Referring Unavailable Andrew Fox Attending Unavailable Andrew Fox Consulting Unavailable Andrew Rodriguez Admitting Unavailable Ranney, Christopher Primary Care Unavailable Andrew Rodriguez Consulting Unavailable Danyelle Perez Attending Unavailable Danyelle Perez Consulting Unavailable [facility] Referring Unavailable [facility] Primary Care Unavailable Subha Handy Attending Unavailable Kimanittle, Andrew Referring Unavailable Andrew Fox Consulting Unavailable Kimanittle, Andrew Attending Unavailable Kimanittle, Andrew Admitting Unavailable [facility] Unavailable Danyelle Perez Consulting Unavailable Juliole, Andrew Referring [facility] Pal, Andrew Attending Unavailable [facility] Primary Care Unavailable Kirit BARREL LEVELER, Barbara Referring Unavailable Kirit BARREL LEVELER, Barbara Attending Unavailable Radha Moore Referring Unavailable Radha Moore Attending Unavailable [facility] Unavailable Rancanvas, Christjavierer Attending Unavailable [facility] Unavailable [facility] Referring Unavailable [facility] Attending Unavailable [facility] Unavailable Allergies Allergy Classification Reported Allergen(s) Allergy Type Date of Onset Reaction(s) Facility dimethicone (1 source) dimethicone Drug Allergy 04-29-20 23 Diarrhea [facility] Macrolides (antibiotic) (1 source) Erythromycin Drug Allergy 12-21-19 12 GI Upset, Vomiting [facility] Work Phone: Sulfamethoxazole / Trimethoprim (1 source) Sulfamethoxazole / Trimethoprim Drug Allergy 07-18-20 [facility] Work Phone: (20 sources) Erythromycin; Translations: [ERYTHROMYCIN] Drug Allergy 12-21-19 12 GI Upset, Vomiting [facility] Work Phone: Comment on above: PT REPORTS UPSET STO MACH WITH USE (20 sources) Sulfamethoxazole / Trimethoprim; Translations: [SULFAMETHOXAZOLE-T RIMETHOPRIM] Drug Allergy 07-18-20 17 [facility] Work Phone: (20 sources) environmentals [Other] Propensity to adverse reactions 12-21-19 12 Unknown [facility] (20 sources) Nut - Unspecified; Translations: [NUT - UNSPECIFIED] Drug Allergy 08-08-20 12 Anaphylaxis [facility] Work Phone: (20 sources) Pineapple; Translations: [PINEAPPLE] Drug Intolerance 02-25-20 20 Other: See Comments [facility] (20 sources) Codeine Drug Allergy 03-28-[address] [facility] (20 sources) Morphine Drug Allergy 03-28-[address] [facility] (20 sources) Sulfamethoxazole Drug Allergy 11-08-19 18 Skin rashes & blisters [facility] (20 sources) Sulfonamides (Antibiotic); Translations: [Sulfa (Sulfonamide Antibiotics)] Allergy to substance 03-28-[address] [facility] (20 sources) tree nut, unspecified; Translations: [tree nut] Allergy to substance 03-28-[address] [facility] (20 sources) Trimethoprim Drug Allergy 11-08-19 18 Skin rashes & blisters [facility] (8 sources) DAIRY Allergy to substance 03-28-[address] [facility] Work Phone: (8 sources) rabbits Propensity to adverse reactions 11-08-[address] [facility] Work Phone: (13 sources) skunk Propensity to adverse reactions 11-08-[address] [facility] (18 sources) cow milk allergenic extract Drug Allergy 06-02-[address] [facility] (18 sources) rabbit allergenic extract Drug Allergy 06-02-20 [address] [facility] (14 sources) Environmental Allergies: Uncoded; Translations: [Environmental Allergies: Uncoded] Propensity to adverse reactions 01-26-20 [address] [facility] Comment on above: skunk (4 sources) Colloidal oatmeal Drug Allergy 04-29-[address] [facility] (20 sources) dimethicone; Translations: [DIMETHICONE] Drug Allergy 04-29-20 23 Diarrhea [facility] (2 sources) Lactose Drug Allergy 11-27-[address] [facility] (1 source) Codeine Drug Allergy 03-25-[address] [facility] Repository (1 source) Erythromycin Drug Allergy 03-25-[address] [facility] (1 source) Lactose Drug Allergy 03-25-[address] [facility] (1 source) Milk Drug allergy (disorder) 03-25-[address] [facility] (1 source) Morphine Drug Allergy 03-25-[address] [facility] (1 source) rabbit allergenic extract Drug Allergy 03-25-20 [facility] (1 source) Sulfamethoxazole Drug Allergy 03-25-20 [facility] (1 source) Trimethoprim Drug Allergy 03-25-20 [facility] Rep[facility] Medications Current Medications Medication Drug Class(es) Dates Sig (Normalized) Sig (Original) acetaminophen 500 mg oral tablet (20 sources) Start: 11-28-2024 take 2 tablets by mouth every eight hours Acetaminophen 500 mg Tablet Active 1000 mg PO Q8H 180 0 November 28, 2024 12:00am Start: 04-07-2017 End: 11-26-2022 take 2 tablets by mouth every eight hours Acetaminophen 500 MG tablet Discontinued 1000 mg PO EVERY 8 HOURS 90 0 April 07, 2017 12:00am November 26, 2022 2:03pm Start: 04-07-2017 End: 11-26-2022 take 1000 mg by mouth every eight hours Acetaminophen Discontinued 1000 MG PO EVERY 8 HOURS 90 April 07, 2017 12:00am November 26, 2022 2:03pm [id number] 200 actuat albuterol 0.09 mg/actuat metered dose inhaler (20 sources) beta2-Adrenergic Agonist Start: 09-09-2020 End: 04-22-2022 albuterol (PROVENTIL) 2.5 mg /3 mL (0.083 %) nebulizer solution Indications: Severe persistent asthma without complication (HCC) USE 3 ML VIA NEBULIZER EVERY 6 HOURS NEED OVER 5-15 MINUTES FOR WHEEZING AND SHORTNESS OF BREATH 375 mL 3 04/22/2022 Active Start: 02-12-2019 End: 11-06-2021 albuterol (PROVENTIL) 2.5 mg /3 mL (0.083 %) nebulizer solution Use 3 mL via nebulizer one time only for 1 dose. OVER 5-15 MINUTES. FOR WHEEZING AND SHORTNESS OF BREATH. 3 mL 0 02/12/2019 11/06/2021 Discontinued Start: 01-09-2018 End: 04-22-2022 take 2 puff(s) by inhalation every four hours as needed for wheezing albuterol HFA (PROAIR HFA) 90 mcg/actuation inhaler Indications: Severe persistent asthma without complication (HCC) Inhale 2 Puffs as instructed every 4 hours as needed for wheezing/shortness of breath. 3 Each 3 04/22/2022 Active Start: 04-15-2015 take 1 puff(s) by in halation every four hours as needed Albuterol Sulfate (Proair Hfa) 1 PUFF inhaler Active 1 - 2 PUFF INHALATION EVERY 4 HOURS NEEDED April 15, 2015 1:35pm Start: 04-15-2015 take 1 puff(s) by in halation every four hours as needed Albuterol Sulfate (Proair Hfa) 1 PUFF inhaler Active 1 - 2 PUFF INHALATION EVERY 4 HOURS NEEDED April 15, 2015 12:00am Comment on above: Inhale 2 Puffs as in structed every 4 hours as needed for Wheezing/Shortness of Breath. USE 3 ML VIA NEBULIZ ER EVERY 6 HOURS NEED OVER 5-15 MINUTES FOR WHEEZING AND SHORTNESS OF BREATH Use 3 mL via nebuliz er one time only for 1 dose. OVER 5-15 MINUTES. FOR WHEEZING AND SHORTNESS OF BREATH. Albuterol Sulfate (Proair Hfa) 1 PUFF inhaler (13 sources) Start: 04-15-2015 Albuterol Sulfate (Proair Hfa) 1 PUFF inhaler Active 1 - 2 NMA INHALATION Q4H as needed for Asthma April 15, 2015 12:00am Start: 04-15-2015 take 1 puff(s) by in halation every four hours Albuterol Sulfate (Proair Hfa) 1 PUFF inhaler Active 1 - 2 PUFF INHALATION Q4H April 15, 2015 12:00am Start: 04-15-2015 take 1 puff(s) by in halation every four hours Albuterol Sulfate (Proair Hfa) 1 PUFF inhaler Active 1 - 2 PUFF INHALATION Q4H April 14, 2015 11:00pm Start: 04-15-2015 take 1 puff(s) by in halation every four hours as needed Albuterol Sulfate (Proair Hfa) 1 PUFF inhaler Active 1 - 2 PUFF INHALATION EVERY 4 HOURS NEEDED April 14, 2015 11:00pm Start: 04-15-2015 take 1 puff(s) by in halation every four hours as needed Albuterol Sulfate (Proair Hfa) 1 PUFF inhaler Active 1 - 2 PUFF INHALATION EVERY 4 HOURS NEEDED April 15, 2015 12:00am amoxicillin 875 mg / clavulanate 125 mg oral tablet (4 sources) Penicillin-class Antibacterial Start: 03-25-2025 Amoxicillin-Pot Clavulanate 875-125 mg tablet Active 1 {tbl} PO TWICE A DAY 14 0 March 25, 2025 12:00am Start: 02-25-2023 End: 03-07-2023 take 1 tablet by mouth twice daily amoxicillin-clavulanic acid (AUGMENTIN) 875-125 mg per tablet Indications: Acute bronchitis, unspecified organism , Sinobronchitis Take 1 tablet by mouth twice daily for 7 days. 14 tablet 0 02/28/2023 03/07/2023 Active Comment on above: Take 1 tablet by johnny twice daily for 7 days. aspirin 81 mg delayed release oral tablet (20 sources) Platelet Aggregation Inhibitor, Nonsteroidal Anti-inflammatory Drug Start: 11-28-2024 take 1 tablet by mouth twice daily at mealtime Aspirin 81 mg Tablet,Delayed Release (Dr/Ec) Active 81 mg PO TWICE DAILY WITH MEALS 28 14 0 November 28, 2024 12:00am Start: 01-06-2023 Aspirin (Adult Low Dose Aspirin) 81 mg tablet,delayed release (DR/EC) Active 81 mg PO DAILY January 06, 2023 12:00am heart On Hold: Resume on 12/13/24. Start: 04-07-2017 End: 09-23-2022 take 1 tablet by mouth once daily Aspirin 325 MG tablet Discontinued 325 mg PO DAILY@0800 14 0 April 07, 2017 12:00am September 23, 2022 4:13pm atomoxetine 80 mg oral capsule (20 sources) Norepinephrine Reuptake Inhibitor Start: 12-15-2022 End: 10-31-2024 Atomoxetine 80 mg capsule once daily. 06/15/2023 Active Start: 11-26-2022 End: 12-15-2022 take 1 capsule by mouth once daily Atomoxetine 60 mg capsule Discontinued 60 mg PO DAILY November 26, 2022 12:00am December 15, 2022 2:57pm Comment on above: once daily. atorvastatin 20 mg oral tablet (20 sources) HMG-CoA Reductase Inhibitor Start: 07-28-20 take 1 tablet by mouth once daily atorvastatin (LIPITOR) 20 mg tablet Take 20 mg by mouth once daily. 07/28/2020 Active Comment on above: Take 20 mg by mouth once daily. calcium carbonate 1500 mg / cholecalciferol 200 unt oral tablet (9 sources) Vitamin D calcium carbonat e 600 mg-cholecalciferol 200 units 600 mg-5 mcg (200 unit) tab 1 tablet once daily. Active cetirizine hydrochloride 10 mg oral tablet (9 sources) Histamine-1 Receptor Antagonist take 1 tablet by mouth once daily cetirizine (ZYRTEC) 10 mg tablet Take 10 mg by mouth once daily. Active cevimeline 30 mg oral capsule (20 sources) Cholinergic Receptor Agonist Start: 06-07-20 cevimeline (EVOXAC) 30 mg capsule three times a day. 06/07/2023 Active Comment on above: three times a day. citalopram 40 mg oral tablet (20 sources) Serotonin Reuptake Inhibitor Start: 09-23-19 Citalopram 40 mg tablet Active 30 mg PO AT BEDTIME September 23, 2022 1:00am sleep Start: 09-23-2022 take 40 mg by mouth at bedtime Citalopram Active 40 MG PO AT BEDTIME September 23, 2022 1:00am Start: 05-28-2015 End: 09-23-2022 take 2 tablets by mouth at bedtime Citalopram 20 MG tablet Discontinued 40 mg PO AT BEDTIME May 28, 2015 12:00am September 23, 2022 4:14pm Start: 05-28-2015 End: 09-23-2022 take 40 mg by mouth at bedtime Citalopram Discontinued 40 MG PO AT BEDTIME May 28, 2015 12:00am September 23, 2022 4:14pm Start: 01-23-2015 End: 05-28-2015 take 1 tablet by mouth once daily Citalopram 20 MG tablet Discontinued 20 mg PO DAILY January 23, 2015 12:00am May 28, 2015 1:27pm citalopram (BUSTER XA) 20 mg tablet Take 30 mg by mouth once daily. Active Comment on above: Take 40 mg by mouth once daily. CPAP (20 sources) Start: 04-24-2021 CPAP In-line filter - Respironics Device. Lifetime supplies. 1 Device 04/24/2021 Active Start: 04-15-2021 CPAP Indicatio ns: Obstructive sleep apnea (adult) (pediatric) Please set at 10-20 cmH2O with humidity with download to us in 4 weeks. Also please provide mask fitting (dreamwear under the nose nasal mask). 1 Device 04/15/2021 Active Start: 07-28-2020 CPAP Indicatio ns: Obstructive sleep apnea (adult) (pediatric) Please eval pts machine as not providing downloads. If you can get download please send us copy. Also please provided mask fitting as pts mask leaking. 1 Device 07/28/2020 Active Comment on above: Please eval pts mach ine as not providing downloads. If you can get download please send us copy. Also please provided mask fitting as pts mask leaking. Please set at 10-20 cmH2O with humidity with download to us in 4 weeks. Also please provide mask fitting (dreamwear under the nose nasal mask). In-line filter - Res pironics Device. Lifetime supplies. docusate sodium 50 mg / sennosides, long term 8.6 mg oral tablet (20 sources) Start: 11-28-2024 Sennosides-Docusate Sodium (Stimulant Laxative Plus) 8.6-50 mg Tablet Active 2 {tbl} PO TWICE A DAY 14 0 November 28, 2024 12:00am Start: 04-07-2017 End: 12-15-2022 take 1 tablet by mouth twice daily as needed Sennosides-Docusate Sodium (Stool Softener-Stimulant Laxat) 1 TABLET tablet Discontinued 2 {tbl} PO TWICE DAILY NEEDED as needed for Constipation 20 0 April 07, 2017 12:00am December 15, 2022 3:01pm TAKE UNTIL FIRST BOWEL MOVEMENT, THEN NEEDED doxycycline monohydrate 100 mg oral capsule (20 sources) Tetracycline-class Drug Start: 11-28-2024 take 1 capsule by mouth twice daily Doxycycline Monohydrate 100 mg capsule Active 100 mg PO TWICE A DAY 14 7 0 November 28, 2024 12:00am Start: 09-23-2022 End: 12-15-2022 take 1 tablet by mouth twice daily Doxycycline Hyclate 100 mg tablet Discontinued 100 mg PO TWICE A DAY September 23, 2022 1:00am December 15, 2022 2:57pm Start: 03-12-2022 End: 03-26-2022 take 1 tablet by mouth twice daily doxycycline (VIBRA-TABS) 100 mg tablet Take 1 tablet by mouth twice daily for 14 days. 28 tablet 0 03/12/2022 03/26/2022 Active Comment on above: Take 1 tablet by johnny twice daily for 14 days. Dulaglutide (20 sources) GLP-1 Receptor Agonist Start: 2023 Dulaglutide (Trulicity) 3 mg/0.5 mL pen injector Active 3 MG SC EVERY WEEK June 23, 2023 11:00pm Start: 06-16-2023 TRULICITY 1.5 mg/0.5 mL pen injector one time a week. 06/16/2023 Active Comment on above: one time a week. empagliflozin 10 mg oral tablet (20 sources) Sodium-Glucose Cotransporter 2 Inhibitor Start: 12-29-19 take 1 tablet by mouth once daily JARDIANCE 10 mg tablet Take 10 mg by mouth once daily. 12/28/2021 Active Comment on above: Take 10 mg by mouth once daily. 1 ml etanercept 50 mg/ml auto-injector (20 sources) Tumor Necrosis Factor Satish Start: 04-13-20 Etanercept (ENBREL SURECLICK) 50 mg/mL (1 mL) one time a week. 04/13/2023 Active Comment on above: one time a week. fluticasone propionate 0.05 mg/actuat metered dose nasal spray (20 sources) Corticosteroid Start: 01-10-20 take 1 spray(s) nasal route once daily fluticasone (FLONASE) 50 mcg/actuation nasal spray Indications: Asthma, moderate persistent, well-controlled (HCC) Use 1 [place] in each nostril once daily. 1 Bottle 5 01/09/2018 Active Start: 01-23-2015 End: 10-12-2023 Fluticasone Propionate 50 mc g/actuation spray,suspension Active 1 NMA INTRANASAL DAILY October 12, 2023 1:00am allergy symptoms administer into each nostril Start: 01-23-2015 End: 10-12-2023 take 1 spray(s) nasal route once daily Fluticasone Propionate Active 1 SPRAY INTRANASAL DAILY October 12, 2023 1:00am administer into each nostril Comment on above: Use 1 [place] in each nostril once daily. fluticasone / salmeterol (20 sources) Corticosteroid, beta2-Adrenergic Agonist Start: take 1 puff(s) by inhalation twice daily fluticasone-salmetero l (ADVAIR DISKUS) 500-50 mcg/dose dsdv Indications: Severe persistent asthma without complication (HCC) Inhale 1 puff as instructed two times a day. 3 each 3 01/23/2025 Active Start: 04-18-2023 End: 01-23-2025 take 1 puff(s) by inhalation twice daily fluticasone-salmeterol (ADVAIR DISKUS) 500-50 mcg/dose dsdv Indications: Severe persistent asthma without complication (HCC) Inhale 1 Puff as instructed twice daily. 3 Each 3 04/18/2023 01/23/2025 Discontinued Start: 04-18-2023 take 1 puff(s) by in halation twice daily fluticasone-salmeterol (ADVAIR DISKUS) 500-50 mcg/dose dsdv Indications: Severe persistent asthma without complication (HCC) Inhale 1 Puff as instructed twice daily. 3 Each 3 04/18/2023 Active Start: 04-18-2023 take 1 puff(s) by in halation twice daily fluticasone-salmeterol (ADVAIR DISKUS) 500-50 mcg/dose dsdv Indications: Severe persistent asthma without complication Inhale 1 Puff as instructed twice daily. 3 Each 3 04/18/2023 Active Start: 05-31-2022 End: 04-18-2023 take 1 puff(s) by inhalation twice daily fluticasone-salmeterol (ADVAIR DISKUS) 500-50 mcg/dose dsdv Indications: Severe persistent asthma without complication Inhale 1 Puff as instructed twice daily. 3 Each 3 05/31/2022 04/18/2023 Discontinued Start: 05-31-2022 take 1 puff(s) by in halation twice daily fluticasone-salmeterol (ADVAIR DISKUS) 500-50 mcg/dose dsdv Indications: Severe persistent asthma without complication Inhale 1 Puff as instructed twice daily. 3 Each 3 05/31/2022 Active Start: 04-22-2022 End: 05-31-2022 take 1 puff(s) by inhalation twice daily fluticasone-salmeterol (ADVAIR DISKUS) 500-50 mcg/dose dsdv Indications: Severe persistent asthma without complication Inhale 1 Puff as instructed twice daily. 3 Each 3 04/22/2022 05/31/2022 Discontinued Start: 04-22-2022 take 1 puff(s) by in halation twice daily fluticasone-salmeterol (ADVAIR DISKUS) 500-50 mcg/dose dsdv Indications: Severe persistent asthma without complication Inhale 1 Puff as instructed twice daily. 3 Each 3 04/22/2022 Active Start: 02-12-2019 End: 04-22-2022 take 1 puff(s) by inhalation twice daily fluticasone-salmeterol (ADVAIR DISKUS) 500-50 mcg/dose dsdv Inhale 1 Puff as instructed twice daily. 1 Inhaler 11 02/12/2019 04/22/2022 Discontinued Start: 02-12-2019 take 1 puff(s) by in halation twice daily fluticasone-salmeterol (ADVAIR DISKUS) 500-50 mcg/dose dsdv Inhale 1 Puff as instructed twice daily. 1 Inhaler 11 02/12/2019 Active Start: 02-12-2019 take 1 puff(s) by in halation twice daily fluticasone-salmeterol (ADVAIR DISKUS) 500-50 mcg/dose dsdv Inhale 1 Puff as instructed twice daily. 1 Inhaler 11 02/12/2019 Active Start: 01-23-2015 take 1 dose by inhal ation twice daily Fluticasone Propion-Salmeterol (Advair Diskus) 1 EACH Disk.W.Dev Active 1 PUFF INHALATION TWICE A DAY January 23, 2015 12:28pm Start: 01-23-2015 take 1 dose by inhal ation twice daily Fluticasone Propion-Salmeterol (Advair Diskus) 1 EACH blister with device Active 1 NMA INHALATION TWICE A DAY January 23, 2015 12:00am shortness of breath Start: 01-23-2015 take 1 dose by inhal ation twice daily Fluticasone Propion-Salmeterol (Advair Diskus) 1 EACH blister with device Active 1 NMA INHALATION TWICE A DAY January 23, 2015 12:00am Start: 01-23-2015 take 1 dose by inhal ation twice daily Fluticasone Propion-Salmeterol (Advair Diskus) 1 EACH blister with device Active 1 PUFF INHALATION TWICE A DAY January 23, 2015 12:00am Start: 01-23-2015 take 1 dose by inhal ation twice daily Fluticasone Propion-Salmeterol (Advair Diskus) 1 EACH blister with device Active 1 PUFF INHALATION TWICE A DAY January 22, 2015 11:00pm Start: 01-23-2015 take 1 dose by inhal ation twice daily Fluticasone Propion-Salmeterol (Advair Diskus) 1 EACH Disk.W.Dev Active 1 PUFF INHALATION TWICE A DAY January 22, 2015 11:00pm Start: 01-23-2015 take 1 dose by inhal ation twice daily Fluticasone Propion-Salmeterol (Advair Diskus) 1 EACH Disk.W.Dev Active 1 PUFF INHALATION TWICE A DAY January 23, 2015 12:00am Comment on above: Inhale 1 Puff as ins tructed twice daily. furosemide 40 mg oral tablet (20 sources) Loop Diuretic Start: 03-28-2024 End: 07-16-2024 Furosemide 40 mg tablet Active 20 mg PO DAILY as needed for edema 21 07July 16, 2024 9:30am Start: 09-23-2022 End: 03-28-2024 furosemide (LASIX) 40 mg tab let Take 40 mg by mouth as needed. 09/03/2023 Active Start: 04-15-2015 End: 05-28-2015 take 1 tablet by mouth once daily Furosemide 40 MG tablet Discontinued 40 mg PO DAILY April 15, 2015 12:00am May 28, 2015 1:27pm glipiZIDE er 5 mg 24 hr extended release oral tablet (20 sources) Sulfonylurea Start: 09-23-2022 End: 04-26-2024 glipiZIDE (GLUCOTROL XL) 5 mg 24 hr tablet once daily. 07/04/2023 Active Comment on above: once daily. 12 hr guaiFENesin 600 mg extended release oral tablet (20 sources) Start: 09-23-2022 End: 04-29-2023 take 1 tablet by mouth twice daily guaiFENesin (MUCINEX) 600 mg 12 hr tablet Indications: Severe persistent asthma without complication (HCC) Take 1 tablet by mouth twice daily. 180 tablet 3 01/12/2023 Active Start: 08-25-2020 End: 04-22-2022 take 1 tablet by mouth twice daily guaiFENesin (MUCINEX) 600 mg 12 hr tablet Indications: Severe persistent asthma without complication Take 1 tablet by mouth twice daily. 180 tablet 3 04/22/2022 Active Comment on above: Take 1 tablet by johnny th twice daily. hydroCHLOROthiazide 12.5 mg oral tablet (20 sources) Thiazide Diuretic Start: 023 take 1 tablet by mouth once daily Hydrochlorothiazide 12.5 mg tablet Active 12.5 mg PO DAILY September 23, 2022 1:00am blood pressure Start: 01-23-2015 End: 09-23-2022 take 1 tablet by mouth once daily Hydrochlorothiazide 25 MG tablet Discontinued 25 mg PO DAILY January 23, 2015 12:00am September 23, 2022 4:10pm hydrochlorothiaz mp 25 mg ORAL tablet Take 12.5 mg by mouth once daily. Active Comment on above: Take 12.5 mg by mout h once daily. Ipratropium (20 sources) Anticholinergic Start: 02-11-2023 Ipratropium [place] Active 2 SPRAY INTRANASAL ONCE February 10, 2023 11:00pm Start: 02-11-2023 Ipratropium [place] Active 2 SPRAY INTRANASAL ONCE February 11, 2023 12:00am Start: 04-22-2022 End: 07-21-2022 ipratropium (ATROVENT) 0.02 % nebulizer solution Indications: Severe persistent asthma without complication (HCC) Use 2.5 mL via nebulizer four times daily as needed for wheezing/shortness of breath. OVER 5-15 MINUTES FOR WHEEZING OR SHORTNESS OF BREATH 900 mL 3 04/22/2022 Active Start: 02-12-2019 ipratropium (A TROVENT) 0.02 % nebulizer solution Use 2.5 mL via nebulizer one time only for 1 dose. OVER 5-15 MINUTES FOR WHEEZING OR SHORTNESS OF BREATH 2.5 mL 02/12/2019 Active Comment on above: Use 2.5 mL via nebul izer one time only for 1 dose. OVER 5-15 MINUTES FOR WHEEZING OR SHORTNESS OF BREATH Use 2.5 mL via nebul izer four times daily as needed for wheezing/shortness of breath. OVER 5-15 MINUTES FOR WHEEZING OR SHORTNESS OF BREATH 24 hr levETIRAcetam 750 mg extended release oral tablet (20 sources) Start: take 1 tablet by mouth every twenty-four hours at bedtime Levetiracetam 750 mg tablet extended release 24 hr Active 750 mg PO AT BEDTIME September 23, 2022 1:00am seizures Start: 04-19-2022 End: 09-01-2025 take 1 tablet by mouth once daily levETIRAcetam ER (KEPPRA XR) 750 mg 24 hr tablet Indications: Neuropathy , Nonintractable episodic headache, unspecified headache type Take 1 tablet by mouth once daily. 90 tablet 1 03/05/2025 09/01/2025 Active Start: 04-24-2021 End: 04-19-2022 take 1 tablet by mouth every twenty-four hours levETIRAcetam ER (KEPPRA XR) 750 mg 24 hr tablet Indications: RLS (restless legs syndrome) , Neuropathy , Nonintractable episodic headache, unspecified headache type Take 1 tablet by mouth every 24 hours. 90 tablet 1 04/24/2021 04/19/2022 Discontinued Start: 03-28-2017 End: 09-23-2022 take 1 tablet by mouth once daily Levetiracetam 500 MG tablet Discontinued 500 mg PO DAILY March 28, 2017 12:00am September 23, 2022 4:16pm Comment on above: Take 1 tablet by johnny th every 24 hours. TAKE 1 TABLET BY JOHNNY TH EVERY DAY Take 1 tablet by johnny th once daily. TAKE 1 TABLET DAILY losartan potassium 100 mg oral tablet (20 sources) Angiotensin 2 Receptor Satish Start: 09-23-2022 take 1 tablet by mouth at bedtime Losartan 100 mg tablet Active 100 mg PO AT BEDTIME September 23, 2022 4:56pm blood pressure Start: 07-18-2017 take 1 tablet by johnny th once daily losartan (COZAAR) 50 mg tablet Take 1 tablet by mouth once daily. 07/18/2017 Active Start: 04-15-2015 End: 09-23-2022 Losartan 100 MG tablet Disco ntinued 50 mg PO DAILY April 15, 2015 12:00am September 23, 2022 5:28pm Start: 04-15-2015 End: 09-23-2022 take 50 mg by mouth once daily Losartan Discontinued 5 0 MG PO DAILY April 15, 2015 12:00am September 23, 2022 5:28pm Comment on above: Take 1 tablet by johnny th once daily. meclizine hydrochloride 25 mg oral tablet (20 sources) Antiemetic Start: 11-26-2022 meclizine (ANTIVERT) 25 mg tab two times a day. 07/04/2023 Active Start: 09-23-2022 End: 11-26-2022 take 2 tablets by mouth once daily Meclizine 25 mg tablet Discontinued 50 mg PO DAILY September 23, 2022 4:57pm November 26, 2022 2:15pm Start: 09-23-2022 End: 11-26-2022 take 50 mg by mouth once daily Meclizine Discontinued 50 MG PO DAILY September 23, 2022 4:57pm November 26, 2022 2:15pm Start: 11-07-2017 End: 09-23-2022 Meclizine 25 mg tablet Disco ntinued 25 mg PO .As needed November 07, 2017 12:00am September 23, 2022 5:28pm Comment on above: two times a day. metFORMIN hydrochloride 500 mg oral tablet (20 sources) Biguanide Start: 09-23-2022 take 1 tablet by mouth once daily Metformin 500 mg tablet Active 500 mg PO DAILY September 23, 2022 1:00am diabetes take 1 tablet by johnny th once daily at breakfast metFORMIN ER (GLUCOPHAGE XR) 500 mg 24 h r tablet Take 500 mg by mouth daily with breakfast. Active metoprolol tartrate 25 mg oral tablet (20 sources) beta-Adrenergic Satish Start: 07-04-2023 metopr olol tartrate, short acting, (LOPRESSOR) 25 mg tablet once daily. 07/04/2023 Active Start: 04-29-2023 End: 05-30-2024 take 1 tablet by mouth twice daily metoprolol tartrate, short acting, (LOPRESSOR) 25 mg tablet Take 25 mg by mouth two times a day. 07/04/2023 Active Comment on above: once daily. montelukast 10 mg oral tablet (20 sources) Leukotriene Receptor Antagonist Start: 015 End: montelukast (SINGULAIR) 10 mg tablet Indications: Severe persistent asthma without complication (HCC) TAKE 1 TABLET DAILY AT BEDTIME 90 tablet 3 04/02/2024 Active Comment on above: Take 1 tablet by johnny th daily at bedtime. TAKE 1 TABLET DAILY AT BEDTIME MOUNJARO 5 mg/0.5 mL pen injector (9 sources) Start: 025 inject 5 mg by subcutaneous injection every week MOUNJARO 5 mg/0.5 mL pen injector Inject 5 mg subcutaneously one time a week. 10/09/2024 Active Mucus Clearing Device jeannine (20 sources) Start: 023 Mucus Clearing Device jeannine Indications: Severe persistent asthma without complication (HCC) Provide 1 mucus clearing device. 1 Each 01/12/2023 Active Start: 01-12-2023 Mucus Clearing Device jeannine Indications: Severe persistent asthma without complication Provide 1 mucus clearing device. 1 Each 01/12/2023 Active Start: 01-12-2023 Mucus Clearing Device jeannine Indications: Severe persistent asthma without complication Provide 1 mucus clearing device. 1 Each 0 01/12/2023 Active Comment on above: Provide 1 mucus angy ring device. Nebulizer Accessories kit (20 sources) Start: 08-25-2020 Nebulizer Accessories kit Indications: Severe persistent asthma without complication (HCC) Provide nebulizer kit. 1 Kit 3 08/25/2020 Active Start: 08-25-2020 Nebulizer Acce ssories kit Indications: Severe persistent asthma without complication Provide nebulizer kit. 1 Kit 3 08/25/2020 Active Comment on above: Provide nebulizer ki t. Nebulizer and Compressor For Neb (20 sources) Start: 08-25-2020 Nebulizer and Compressor For Neb Indications: Severe persistent asthma without complication (HCC) Provide nebulizer. 1 Each 08/25/2020 Active Start: 08-25-2020 Nebulizer and Compressor For Neb Indications: Severe persistent asthma without complication Provide nebulizer. 1 Each 08/25/2020 Active Start: 08-25-2020 Nebulizer and Compressor For Neb Indications: Severe persistent asthma without complication Provide nebulizer. 1 Each 0 08/25/2020 Active Comment on above: Provide nebulizer. ondansetron 4 mg oral tablet (20 sources) Serotonin-3 Receptor Antagonist Start: 3 End: 3 take 1 tablet by mouth every eight hours as needed for nausea and vomiting Ondansetron 4 mg tablet,disintegratin g Discontinued 4 mg PO Q8H as needed for nausea and vomiting 9 3 0 May 10, 2023 12:00am 2023 10:07am Start: 09-23-2022 ondansetron (Z OFRAN) 4 mg tablet as needed for nausea/vomiting. 07/12/2023 Active Comment on above: as needed for nausea /vomiting. 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 Start: 10-18-2023 End: 06-20-2024 take 1 tablet by mouth every four hours as needed for pain Oxycodone 5 mg tablet Discontinued 5 mg PO Q4H as needed for pain 20 10 0 January 04, 2024 January 13, 2024 12:00am January 14, 2024 12:13am Fracture of proximal end of right humerus Start: 04-07-2017 End: 09-23-2022 take 5-10 mg by mouth every four hours as needed for pain Oxycodone 5 MG tablet Discontinued 5 - 10 mg PO EVERY 4 HOURS NEEDED as needed for Pain 90 0 April 07, 2017 12:00am September 23, 2022 4:59pm potassium chloride 20 meq extended release oral tablet (20 sources) Start: 01-12-2021 take 1 tablet by mouth once daily potassium chloride 20 mEq TbER Take 1 tablet by mouth once daily. 01/12/2021 Active Comment on above: Take 1 tablet by johnny once daily. predniSONE 20 mg oral tablet (20 sources) Start: 04-29-2023 take 5 mg by mouth once daily as needed for pain Prednisone 20 mg tablet Active 5 mg PO DAILY as needed for pain April 29, 2023 3:32pm x5days Start: 04-29-2023 take 5 mg by mouth once daily Prednisone Active 5 MG PO DAILY April 29, 2023 3:32pm x5days Start: 02-11-2023 End: 04-29-2023 take 2 tablets by mouth once daily Prednisone 20 mg tablet Discontinued 40 mg PO DAILY February 11, 2023 12:00am April 29, 2023 3:33pm x5days Start: 02-11-2023 End: 04-29-2023 take 40 mg by mouth once daily Prednisone Discontinued 40 MG PO DAILY February 11, 2023 12:00am April 29, 2023 3:33pm x5days Start: 11-26-2022 End: 12-15-2022 take 1 tablet by mouth once daily Prednisone 5 mg tablet Discontinued 5 mg PO DAILY November 26, 2022 12:00am December 15, 2022 3:00pm Start: 08-28-2018 predniSONE (DE LTASONE) 10 mg tablet 2 DAILY FOR 1 WEEK THEN 1 TAB DAILY FOR 1 WEEK. KEEP REMAINDER ON HAND FOR FUTURE FLARES 60 tablet 1 08/28/2018 Active Comment on above: 2 DAILY FOR 1 WEEK T HEN 1 TAB DAILY FOR 1 WEEK. KEEP REMAINDER ON HAND FOR FUTURE FLARES QUEtiapine 100 mg oral tablet (20 sources) Atypical Antipsychotic Start: take 2 tablets by mouth at bedtime Quetiapine 100 mg tablet Active 200 mg PO AT BEDTIME September 23, 2022 4:59pm mood disorder Start: 09-23-2022 take 200 mg by mouth at bedtim e Quetiapine Active 200 MG PO AT BEDTIME September 23, 2022 4:59pm Start: 01-23-2015 End: 09-23-2022 take 1 tablet by mouth at bedtime Quetiapine 100 MG tablet Discontinued 100 mg PO AT BEDTIME May 28, 2015 12:00am September 23, 2022 5:28pm Comment on above: Take 200 mg by mouth daily at bedtime. 60 actuat tiotropium 0.0025 mg/actuat inhalation spray (17 sources) Anticholinergic Start: 09-23-19 take 2.5 ug by inhalation once daily Tiotropium [place] (Spiriva Respimat) 2.5 mcg/actuation mist Active 2 NMA INHALATION DAILY September 23, 2022 1:00am shortness of breath Start: 09-23-2022 take 1 puff(s) by in halation once daily Tiotropium [place] (Spiriva Respimat) 2.5 mcg/actuation mist Active 2 PUFF INHALATION DAILY September 23, 2022 1:00am Tirzepatide (Mounjaro) 5 mg/0.5 mL pen injector (2 sources) Start: 11-22-2024 Tirzepatide (Mounjaro) 5 mg/0.5 mL pen injector Active 5 mg SC EVERY WEEK November 22, 2024 12:00am traMADol hydrochloride 50 mg oral tablet (9 sources) Opioid Agonist Start: 08-17-2024 take 1 tablet by mouth every six hours as needed traMADol (ULTRAM) 50 mg tablet Take 50 mg by mouth every 6 hours as needed. 08/17/2024 Active 24 hr venlafaxine 150 mg extended release oral capsule (20 sources) Serotonin and Norepinephrine Reuptake Inhibitor Start: 12-15-2022 take 1 capsule by mouth once daily Venlafaxine 150 mg capsule,extended release 24hr Active 225 mg PO DAILY December 15, 2022 12:00am mood Start: 09-23-2022 End: 12-15-2022 take 3 tablets by mouth once daily Venlafaxine 100 mg tablet Discontinued 300 mg PO DAILY September 23, 2022 1:00am December 15, 2022 3:01pm Start: 09-23-2022 End: 12-15-2022 take 300 mg by mouth once daily Venlafaxine Discontinu ed 300 MG PO DAILY September 23, 2022 1:00am December 15, 2022 3:01pm Start: 07-17-2018 venlafaxine ER (EFFEXOR XR) 150 mg 24 hr capsule 300 mg once daily. 07/17/2018 Active Start: 01-23-2015 End: 09-23-2022 take 1 capsule by mouth once daily Venlafaxine 150 MG capsule,extended release 24hr Discontinued 225 mg PO DAILY January 23, 2015 12:00am September 23, 2022 5:00pm Start: 01-23-2015 End: 09-23-2022 take 225 mg by mouth once daily Venlafaxine Discontinu ed 225 MG PO DAILY January 23, 2015 12:00am September 23, 2022 5:00pm Comment on above: 300 mg once daily. Completed/Discontinued Medications Medication Drug Class(es) Dates Sig (Normalized) Sig (Original) acetaminophen 325 mg / HYDROcodone bitartrate 5 mg oral tablet (20 sources) Opioid Agonist Start: 09-23-2022 End: 12-15-2022 Hydrocodone-Acetami nophen 5-325 mg tablet Discontinued 1 {tbl} PO EVERY 6 HOURS as needed 0 September 23, 2022 1:00am December 15, 2022 2:59pm Start: 09-23-2022 End: 12-15-2022 take 1 tablet by mouth every six hours Hydrocodone-Acetaminophen Discontinued 1 TABLET PO EVERY 6 HOURS September 23, 2022 1:00am December 15, 2022 2:59pm Start: 03-28-2017 End: 04-07-2017 Hydrocodone-Acetaminophen (N orco 5-325 Tablet) 1 EACH tablet Discontinued 1 NMA PO TWICE A DAY March 28, 2017 12:00am April 07, 2017 7:05am Start: 04-17-2015 End: 05-28-2015 take 7.5-300 mg by mouth four times daily as needed Hydrocodone-Acetaminophen (Vicodin Es 7.5-300 Mg Tablet) 1 EACH tablet Discontinued 1 {tbl} PO 4 TIMES DAILY NEEDED as needed for Pain 40 0 April 17, 2015 9:01am May 28, 2015 1:26pm acetaminophen 325 mg / oxyCODONE hydrochloride 5 mg oral tablet (2 sources) Opioid Agonist Start: 02-07-2024 End: 06-20-2024 Oxycodone-Acetaminophen 5-325 mg tablet Discontinued 1 {tbl} PO EVERY 6 HOURS NEEDED as needed for Pain 12 3 0 February 07, 2024 June 20, 2024 2:03pm Contusion of right shoulder Contusion of right shoulder, initial encounter ALPRAZolam 1 mg oral tablet (20 sources) Benzodiazepine Start: 10-18-2023 End: 01-17-2024 take 1 tablet by mouth at bedtime Alprazolam 1 mg tablet Discontinued 1 mg PO AT BEDTIME 20 0 January 04, 2024 12:00am January 17, 2024 10:13am Anxiety Anxiety disorder, unspecified Start: 10-12-2023 Alprazolam Act al 1 MG PO AT BEDTIME October 12, 2023 1:00am Take 1 tab QAM and 2 tabs at night Start: 12-15-2022 End: 01-17-2024 Alprazolam 0.5 mg tablet Discontinued 1 mg PO AT BEDTIME October 12, 2023 1:00am January 17, 2024 10:13am anxiety/sleep Take 1 tab QAM and 2 tabs at night Start: 03-28-2017 End: 09-23-2022 take 1 tablet by mouth at bedtime Alprazolam (Xanax) 1 MG tablet Discontinued 1 mg PO AT BEDTIME March 28, 2017 12:00am September 23, 2022 4:12pm Start: 03-28-2017 End: 12-15-2022 take 1 tablet by mouth twice daily Alprazolam 0.5 mg tablet Discontinued 0.5 mg PO TWICE A DAY September 23, 2022 4:12pm December 15, 2022 3:02pm Anxiety Start: 01-23-2015 End: 05-28-2015 Alprazolam 0.5 MG tablet Discontinued 0.5 mg PO NEEDED as needed for Sleep January 23, 2015 12:00am May 28, 2015 1:28pm Comment on above: Take 0.5 mg by mouth at bedtime as needed. amLODIPine 10 mg oral tablet (20 sources) Dihydropyridine Calcium Channel Satish Start: 05-28-20 End: 11-27-19 take 1 tablet by mouth once daily Amlodipine 10 MG tablet Discontinued 10 mg PO DAILY May 28, 2015 12:00am November 26, 2024 8:50am blood pressure take 1 tablet by mouth once helen y amLODIPine 5 mg ORAL tablet Take 5 mg by mouth once daily. Active Comment on above: Take 5 mg by mouth o nce daily. azelastine hydrochloride 0.206 mg/actuat metered dose nasal spray (1 source) Histamine-1 Receptor Antagonist Start: 07-17-20 End: 11-07-19 take 1 spray(s) nasal route twice daily Azelastine (ASTEPRO) 0.15 % (205.5 mcg) spry Use 1 [place] in each nostril twice daily. 1 Bottle 11 07/17/2018 11/06/2021 Discontinued Comment on above: Use 1 [place] in each nostril twice daily. Budesonide / formoterol (4 sources) Corticosteroid, beta2-Adrenergic Agonist End: 01-24-20 take 2 puff(s) by inhalation twice daily budesonide-formotero l (SYMBICORT) 160-4.5 mcg/actuation inhaler Inhale 2 Puffs as instructed two times a day. 01/23/2025 Discontinued (Course of therapy completed) take 2 puff(s) by in halation twice daily budesonide-formoterol (SYMBICORT) 160-4. 5 mcg/actuation inhaler Inhale 2 Puffs as instructed two times a day. Active cefadroxil 500 mg oral capsule (20 sources) Cephalosporin Antibacterial Start: 04-17-2015 End: 05-28-2015 take 1 capsule by mouth twice daily Cefadroxil 500 MG capsule Discontinued 500 mg PO TWICE A DAY 10 0 April 17, 2015 12:00am May 28, 2015 1:27pm clobetasol propionate 0.0005 mg/mg topical ointment (18 sources) Corticosteroid Start: 09-23-2022 End: 12-15-2022 Clobetasol 0.05 % ointment Discontinued 1 NMA TOPICAL DAILY September 23, 2022 1:00am December 15, 2022 3:02pm clopidogrel 75 mg oral tablet (17 sources) [id number] Platelet Inhibitor Start: 02-11-2023 End: 03-28-2024 take 1 tablet by mouth once daily Clopidogrel (Plavix) 75 mg tablet Discontinued 75 mg PO DAILY October 12, 2023 1:00am March 28, 2024 11:54am blood thinner ergocalciferol 1.25 mg oral capsule (20 sources) Provitamin D2 Compound Start: 11-07-2017 End: 09-23-2022 Ergocalciferol (Vitamin D2) 50,000 unit capsule Discontinued 08164 U PO EVERY WEEK November 07, 2017 12:00am September 23, 2022 4:15pm famotidine 20 mg oral tablet (20 sources) Histamine-2 Receptor Antagonist Start: 04-07-2017 End: 09-23-2022 take 1 tablet by mouth once daily Famotidine 20 MG tablet Discontinued 20 mg PO DAILY 14 0 April 07, 2017 12:00am September 23, 2022 4:15pm hydroxychloroquine sulfate 200 mg oral tablet (20 sources) Antimalarial, Antirheumatic Agent Start: 11-07-2017 End: 09-23-2022 take 1 tablet by mouth twice daily Hydroxychloroquine 200 mg tablet Discontinued 200 mg PO TWICE A DAY November 07, 2017 12:00am September 23, 2022 4:15pm hydrOXYzine hydrochloride 25 mg oral tablet (20 sources) Antihistamine Start: 11-07-2017 End: 09-23-2022 Hydroxyzine Hcl 25 mg tablet Discontinued 25 mg PO .As Needed November 07, 2017 12:00am September 23, 2022 4:16pm lactobacillus acidophilus [id number] unt / pectin 100 mg oral tablet (20 sources) Start: 04-17-2015 End: 05-28-2015 take 1 tablet by mouth twice daily Acidophilus-Pectin, [place] 1 EACH tablet Discontinued 1 NMA PO TWICE A DAY 10 April 17, 2015 12:00am May 28, 2015 1:25pm Start: 04-17-2015 End: 05-28-2015 Acidophilus-Pectin, [place] D iscontinued 1 EACH PO TWICE A DAY April 17, 2015 12:00am May 28, 2015 1:25pm leflunomide 20 mg oral tablet (20 sources) Antirheumatic Agent Start: 09-23-2022 End: 11-26-2022 leflunomide Discontinued PO September 23, 2022 12:00am November 26, 2022 1:15pm Start: 09-23-2022 End: 11-26-2022 leflunomide Discontinued PO September 23, 2022 1:00am November 26, 2022 2:15pm Start: 09-23-2022 leflunomide Ac tive PO September 23, 2022 1:00am Start: 09-23-2022 leflunomide Ac tive PO September 23, 2022 12:00am Start: 07-30-2020 End: 11-26-2022 take 1 tablet by mouth once daily leflunomide (ARAVA) 20 mg tablet Take 20 mg by mouth once daily. 07/30/2020 Active Comment on above: Take 20 mg by mouth once daily. linagliptin 5 mg oral tablet (1 source) Dipeptidyl Peptidase 4 Inhibitor Start: 020 End: take 1 tablet by mouth once daily TRADJENTA 5 mg tab Take 5 mg by mouth once daily. 0 07/31/2020 11/06/2021 Discontinued Comment on above: Take 5 mg by mouth o nce daily. methylphenidate hydrochloride 10 mg oral tablet (17 sources) Central Nervous System Stimulant Start: 023 End: take 2 tablets by mouth twice daily in the morning, then take 1 tablet by mouth at bedtime Methylphenidate Hcl (Ritalin) 10 mg tablet Discontinued 0 PO TWICE A DAY 0 September 23, 2022 1:00am December 15, 2022 2:59pm 20mg q AM 10mg HS orally mometasone furoate 0.05 mg/actuat metered dose nasal spray (20 sources) Corticosteroid Start: 015 End: 015 Mometasone (Nasonex) 1 SPRAY Nasal.Sry Discontinued 1 NMA NASAL DAILY April 15, 2015 12:00am May 28, 2015 1:25pm Start: 04-15-2015 End: 05-28-2015 Mometasone (Nasonex) 1 SPRAY Nasal.Sry Discontinued 1 SPRAY NASAL DAILY April 15, 2015 12:00am May 28, 2015 1:25pm morphine sulfate 15 mg extended release oral tablet (20 sources) Opioid Agonist Start: 04-07-2017 End: 09-23-2022 take 1 tablet by mouth twice daily Morphine 15 MG tablet Discontinued 15 mg PO TWICE A DAY 8 0 April 07, 2017 12:00am September 23, 2022 4:58pm OXcarbazepine 300 mg oral tablet (20 sources) Anti-epileptic Agent Start: 04-17-2015 End: 05-28-2015 take 450 mg by mouth twice daily Oxcarbazepine (Trileptal) 300 mg 10 Discontinued 450 mg PO TWICE A DAY April 17, 2015 12:00am May 28, 2015 1:24pm Start: 04-15-2015 End: 05-28-2015 take 1 tablet by mouth twice daily Oxcarbazepine 150 MG tablet Discontinued 150 mg PO TWICE A DAY April 15, 2015 12:00am May 28, 2015 1:24pm perflutren lipid microspheres 1.3 mL in NaCl (PF) 0.9% 10 mL injection (DEFINITY) (20 sources) Start: 04-22-2022 End: 07-22-2023 perflutren lipid microspheres 1.3 mL in NaCl (PF) 0.9% 10 mL injection (DEFINITY) pregabalin 75 mg oral capsule (20 sources) Start: 01-17-2024 End: 09-01-2025 take 1 capsule by mouth twice daily pregabalin (LYRICA) 75 mg capsule Indications: Neuropathy , Nonintractable episodic headache, unspecified headache type Take 1 capsule by mouth two times a day for 30 days. 60 capsule 02/15/2025 03/05/2025 Discontinued Start: 09-19-2023 End: 06-19-2024 take 1 capsule by mouth twice daily pregabalin (LYRICA) 150 mg capsule Indications: Nonintractable episodic headache, unspecified headache type , Neuropathy , RLS (restless legs syndrome) , SANTHOSH (obstructive sleep apnea) , Sciatica of right side Take 1 capsule by mouth two times a day for 90 days. 180 capsule 09/19/2023 06/19/2024 Discontinued Start: 04-29-2023 End: 07-28-2023 take 1 capsule by mouth twice daily pregabalin (LYRICA) 150 mg capsule Indications: Neuropathy , RLS (restless legs syndrome) , SANTHOSH (obstructive sleep apnea) , Nonintractable episodic headache, unspecified headache type , Sciatica of right side Take 1 capsule by mouth twice daily for 90 days. 180 capsule 0 04/29/2023 Active Start: 09-23-2022 End: 01-17-2024 take 1 capsule by mouth once daily Pregabalin 75 mg capsule Discontinued 75 mg PO DAILY 20 0 January 04, 2024 12:00am January 17, 2024 10:18am Neuropathic pain Neuralgia and neuritis, unspecified Start: 11-06-2021 End: 07-18-2023 take 1 capsule by mouth twice daily pregabalin (LYRICA) 100 mg capsule Indications: Neuropathy , RLS (restless legs syndrome) , Nonintractable episodic headache, unspecified headache type , SANTHOSH (obstructive sleep apnea) , Sciatica of right side Take 1 capsule by mouth twice daily for 90 days. 180 capsule 0 12/23/2022 04/18/2023 Discontinued Start: 08-20-2021 End: 11-06-2021 take 1 capsule by mouth twice daily pregabalin (LYRICA) 75 mg capsule Indications: RLS (restless legs syndrome) , Neuropathy , Nonintractable episodic headache, unspecified headache type , SANTHOSH (obstructive sleep apnea) , Sciatica of right side Take 1 capsule by mouth twice daily for 90 days. 60 capsule 2 08/20/2021 11/06/2021 Discontinued Comment on above: Take 1 capsule by mo uth twice daily for 90 days. Take 1 capsule by mo uth twice daily for 30 days. Take 1 capsule by mo uth two times a day for 90 days. promethazine hydrochloride 25 mg oral tablet (20 sources) Phenothiazine Start: 04-17-20 15 End: 05-28-20 15 take 1 tablet by mouth four times daily as needed for nausea Promethazine 25 MG tablet Discontinued 25 mg PO 4 TIMES DAILY NEEDED as needed for Nausea 20 0 April 17, 2015 9:01am May 28, 2015 1:24pm rOPINIRole 0.25 mg oral tablet (1 source) Nonergot Dopamine Agonist Start: 08-20-20 End: 11-07-19 rOPINIRole (REQUIP) 0.25 mg tablet Indications: RLS (restless legs syndrome) Take 1 tablet before bedtime. If tingling persists, try increasing to 2 tablets. 180 tablet 0 08/20/2021 11/06/2021 Discontinued Comment on above: Take 1 tablet before bedtime. If tingling persists, try increasing to 2 tablets. 125 ml sodium chloride 9 mg/ml prefilled syringe (20 sources) Start: 04-22-20 End: 07-22-20 sodium chloride 0.9 % (flush) 10 mL (BD POSIFLUSH) ticagrelor 90 mg oral tablet (20 sources) Start: 01-27-20 End: 04-29-20 take 1 tablet by mouth twice daily Ticagrelor (Brilinta) 90 mg tablet Discontinued 90 mg PO TWICE A DAY 60 11 January 26, 2023 3:59pm April 29, 2023 3:33pm Problems Active Problems Problem Classification Problem Date Documented Date Episodic/Chronic Acute and unspecified renal failure (8 sources) Acute renal failure syndrome; Translations: [Acute kidney failure, unspecified] 10-12-2023 Episodic Acute bronchitis (2 sources) Acute bronchitis; Translations: [Acute bronchitis, unspecified] 02-25-2023 Episodic Anxiety disorders (20 sources) Posttraumatic stress disorder; Translations: [Post-traumatic stress disorder, unspecified] Onset: 01-26-2019 01-26-2019 Chronic Comment on above: WORKED GROUND ZERO Asthma (20 sources) Asthma; Translations: [Unspecified asthma, uncomplicated] Onset: 05-16-2013 08-17-2021 Chronic Comment on above: INHALER'S USED Cardiac dysrhythmias (20 sources) Tanvir rhythm disorder; Translations: [Other specified cardiac arrhythmias] Onset: 05-16-2013 08-17-2021 Chronic Cardiac dysrhythmias (20 sources) Tachycardia; Translations: [Tachycardia, unspecified] 02-11-2023 Episodic Chronic ulcer of skin (20 sources) Chronic ulcer of lower extremity; Translations: [Non-pressure chronic ulcer of other part of right lower leg with fat layer exposed] 07-27-2015 Chronic Comment on above: Nonhealing ulcer rig ht anterior leg. Conduction disorders (20 sources) First degree atrioventricular block; Translations: [Atrioventricular block, first degree] Onset: 05-16-2013 08-17-2021 Chronic Coronary atherosclerosis and other heart disease (20 sources) Coronary atherosclerosis; Translations: [Atherosclerotic heart disease of [place] coronary artery without angina pectoris] 11-08-2017 Chronic Comment on above: stented coronary art nils 01/26/2023 Diseases of white blood cells (8 sources) Leukocytosis; Translations: [Elevated white blood cell count, unspecified] 10-12-2023 Chronic Disorders of lipid metabolism (20 sources) Secondary hypertriglyceridemia; 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 E Codes: Fall (7 sources) Fall; Translations: [Unspecified fall, initial encounter] 10-12-2023 Episodic Essential hypertension (20 sources) Hypertensive disorder; Translations: [Essential (primary) hypertension] Onset: 05-16-2013 05-16-2013 Chronic Comment on above: CONTROLLED ON MED Fluid and electrolyte disorders (8 sources) Hypernatremia; Translations: [Hyperosmolality and hypernatremia] 10-12-2023 Episodic Genitourinary symptoms and ill-defined conditions (2 sources) Urinary symptoms ; Translations: [Unspecified symptoms and signs involving the genitourinary system] Onset: 03-25-2025 03-25-2025 Episodic Gout and other crystal arthropathies (20 sources) Gout; Translations: [Gout, unspecified] 11-08-2017 Chronic Headache; including migraine (1 source) Headache; including migraine; Translations: [Nonintractable episodic headache, unspecified headache type] Onset: 01-26-2019 Other aftercare (20 sources) Long-term current use of drug therapy; Translations: [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] 11-08-2017 Episodic Other aftercare (1 source) 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; Translations: [Encounter for long-term (current) use of medications] Onset: 01-11-2025 Episodic Other connective tissue disease (4 sources) History of reverse prosthetic total arthroplasty of right shoulder; Translations: [Presence of right artificial shoulder joint] 11-26-2024 Chronic Other connective tissue disease (1 source) Presence of right artificial shoulder joint; Translations: [Presence of right artificial shoulder joint] Onset: 11-27-2024 Chronic Other connective tissue disease (5 sources) Rhabdomyolysis; Translations: [Rhabdomyolysis] 10-12-2023 Episodic Other connective tissue disease (3 sources) Rhabdomyolysis; Translations: [Rhabdomyolysis] 10-12-2023 Episodic Other connective tissue disease (2 sources) Recurrent falls ; Translations: [Repeated falls] 06-15-2024 Episodic Other connective tissue disease (2 sources) Neuropathic pain; Translations: [Neuralgia and neuritis, unspecified] 01-04-2024 Episodic Other connective tissue disease (2 sources) Pain of left hand; Translations: [Pain in left hand] 03-05-2025 Episodic Other connective tissue disease (1 source) Pain in left hand; Translations: [Left hand pain] Onset: 03-05-2025 Episodic Other connective tissue disease (1 source) Repeated falls; Translations: [Recurrent falls] Onset: 01-11-2025 Episodic Other ear and sense organ disorders (1 source) Tinnitus of left ear; Translations: [Tinnitus, left ear] Episodic Other ear and sense organ disorders (1 source) Bilateral tinnitus; Translations: [Tinnitus, bilateral] Episodic Other hereditary and degenerative nervous system conditions (15 sources) Restless legs; Translations: [Restless legs syndrome] Chronic Other hereditary and degenerative nervous system conditions (2 sources) Restless legs syndrome; Translations: [RLS (restless legs syndrome)] Onset: 06-15-2024 Chronic Other infections; including parasitic (3 sources) Late effects of other and unspecified infectious and parasitic diseases; Translations: [COVID-19 long hauler] Chronic Other infections; including parasitic (20 sources) Lyme disease; Translations: [Lyme disease, unspecified] 11-08-2017 Episodic Other lower respiratory disease (9 sources) Multiple nodules of lung; Translations: [Other nonspecific abnormal finding of lung field] Episodic Other lower respiratory disease (3 sources) Dyspnea; Translations: [Dyspnea, unspecified] Episodic Other lower respiratory disease (1 source) Nodule of lung; Translations: [Solitary pulmonary nodule] 02-25-2023 Episodic Other lower respiratory disease (1 source) Other nonspecific abnormal finding of lung field; Translations: [Lung nodules] Onset: 02-05-2025 Episodic Other nervous system disorders (20 sources) Neuropathy; Translations: [Polyneuropathy, unspecified] Onset: 01-26-2019 Chronic Other nervous system disorders (3 sources) Aphasia; Translations: [Aphasia] Chronic Other nervous system disorders (2 sources) Carpal tunnel syndrome of left wrist; Translations: [Carpal tunnel syndrome, left upper limb] 03-05-2025 Chronic Other nervous system disorders (1 source) Carpal tunnel syndrome, left upper limb; Translations: [Carpal tunnel syndrome of left wrist] Onset: 03-05-2025 Chronic Other nervous system disorders (1 source) Polyneuropathy, unspecified; Translations: [Neuropathy] Onset: 01-26-2019 Chronic Other nervous system disorders (4 sources) Impairment of balance; Translations: [Other abnormalities of gait and mobility] Episodic Other nervous system disorders (1 source) Other abnormalities of gait and mobility; Translations: [Balance problems] Onset: 01-11-2025 Episodic Other nutritional; endocrine; and metabolic disorders (20 sources) Obesity; Translations: [Obesity, unspecified] Onset: 05-16-2013 05-16-2013 Chronic Other nutritional; endocrine; and metabolic disorders (20 sources) Obese class II; Translations: [Obesity, unspecified] Onset: 01-09-2018 01-09-2018 Chronic Other nutritional; endocrine; and metabolic disorders (20 sources) Simple obesity ; Translations: [Obesity, unspecified] 06-11-2015 Chronic Other upper respiratory infections (2 sources) Chronic sinusitis; Translations: [Chronic sinusitis, unspecified] 02-25-2023 Chronic Pneumonia (except that caused by tuberculosis or sexually transmitted disease) (12 sources) Pneumonia; Translations: [Pneumonia, unspecified organism] 02-11-2023 Episodic Residual codes; unclassified (20 sources) Obstructive sleep apnea syndrome; Translations: [Obstructive sleep apnea (adult) (pediatric)] Onset: 05-16-2013 Chronic Residual codes; unclassified (20 sources) Sleep apnea; Translations: [Sleep apnea, unspecified] 11-08-2017 Chronic Residual codes; unclassified (2 sources) Sleep apnea, unspecified; Translations: [Unspecified sleep apnea] 10-12-2023 Chronic Residual codes; unclassified (2 sources) Obstructive sleep apnea (adult) (pediatric); Translations: [SANTHOSH (obstructive sleep apnea)] Onset: 01-04-2022 Chronic Screening and history of mental health and substance abuse codes (1 source) Ex-smoker; Translations: [Personal history of nicotine dependence] 01-24-2025 Episodic Spondylosis; intervertebral disc disorders; other back problems (1 source) Degeneration of lumbosacral intervertebral disc; Translations: [Degeneration of intervertebral disc of lumbosacral region, unspecified whether pain present] 03-05-2025 Chronic Spondylosis; intervertebral disc disorders; other back problems (11 sources) Low back pain; Translations: [Low back pain, unspecified back pain laterality, unspecified chronicity, unspecified whether sciatica present] Episodic Substance-related disorders (20 sources) Nicotine dependence, unspecified, in remission; Translations: [Nicotine dependence in remission] 11-08-2017 Chronic Superficial injury; contusion (2 sources) Contusion of right shoulder; Translations: [Contusion of right shoulder, initial encounter] 02-15-2024 Episodic Systemic lupus erythematosus and connective tissue disorders (5 sources) Sjogren's syndrome; Translations: [Sicca syndrome, unspecified] Onset: 01-23-2025 Chronic Transient cerebral ischemia (3 sources) Cerebral ischemia; Translations: [Transient cerebral ischemic attack, unspecified] Chronic Unclassified (1 source) Degeneration of intervertebral disc of lumbosacral region, unspecified whether pain present; Translations: [Degeneration of intervertebral disc of lumbosacral region, unspecified whether pain present] Onset: 03-05-2025 Unclassified (1 source) COVID-19 long hauler; Translations: [COVID-19 long hauler] Onset: 01-23-2025 Past or Other Problems Problem Classification Problem Date Documented Da te Episodic/Chronic Conditions associated with dizziness or vertigo (20 sources) Vertigo; Translations: [Dizziness and giddiness] Onset: 01-26-2019 01-26-2019 Episodic Coronary atherosclerosis and other heart disease (20 sources) Stented coronary artery; Translations: [Presence of coronary angioplasty implant and graft] Onset: 01-26-2023 01-28-2023 Episodic Comment on above: 2.25 X 26 MAGEN Drug Eluting stent to mid lcx 01/26/23 Fracture of upper limb (12 sources) Fracture of upper end of humerus; Translations: [Unspecified fracture of upper end of right humerus, initial encounter for closed fracture] Onset: 12-10-2024 10-12-2023 Episodic Headache; including migraine (20 sources) Headache; Translations: [Nonintractable episodic headache, unspecified headache type] Onset: 01-26-2019 Episodic Heart valve disorders (3 sources) Heart murmur; Translations: [Cardiac murmur, unspecified] Onset: 05-24-2024 03-28-2024 Episodic Lung disease due to external agents (20 sources) Bronchitis and pneumonitis due to chemical fumes; Translations: [Bronchitis and pneumonitis due to chemicals, gases, fumes and vapors] Onset: 01-12-2023 05-28-2015 Episodic Other non-traumatic joint disorders (1 source) Pain in left ankle and joints of left foot; Translations: [Pain in left ankle and joints of left foot] Onset: 10-23-2024 Episodic Other screening for suspected conditions (not mental disorders or infectious disease) (14 sources) Cardiovascular stress test abnormal; Translations: [Abnormal result of other cardiovascular function study] Onset: 04-21-2024 01-06-2023 Episodic Results Test Name Value Interpretation Reference Range Facility Urgent Care Visit Reporton 0 03-25-2025 Urgent Care Visit Report [facility] [address], [address] [place] [address] OFFICE VISIT Date of Service: 03/25/25 MR#: [id number] Acct: [id number] Name: RAJWINDER WYLIE Rep #: [id number] : 1950 Provider: ROOSEVELT Low Age/Sex: 74/F Location: [facility] [place] [place] Status: Signed Intake Vital Signs 11/26/24 14:42 03/25/25 16:02 Height 5 ft 4 in 5 ft 4 in Weight: 208 lb BMI 35.6 BP 118/70 Blood Pressure Location Lt brachial Position Sitting Respiration 16 Pulse 63 Pulse Source Monitor Temp 98.0 F Temp Source Oral Pulse Oximetry (%) 99 Oxygen Delivery Method room air Intake Visit Reasons: CONCERN FOR UTI Chief Complaint: uti sx Accompanied by: Self Is patient in pain?: No Allergies lactose Allergy (Severe, Verified 03/25/25 15:55) Vomiting Sulfa (Sulfonamide Antibiotics) Allergy (Verified 03/25/25 15:55) Hives tree nut Allergy (Verified 03/25/25 15:55) Anaphylaxis Rabbit Adverse Reaction (Severe, Verified 03/25/25 15:55) NEEDS FOLLOW-UP sulfamethoxazole (From Bactrim) Adverse Reaction (Severe, Verified 03/25/25 15:55) Skin rashes blisters trimethoprim (From Bactrim) Adverse Reaction (Severe, Verified 03/25/25 15:55) Skin rashes blisters codeine Adverse Reaction (Verified 03/25/25 15:55) Other Environmental Allergies: Uncoded Adverse Reaction (Verified 03/25/25 15:55) NEEDS FOLLOW-UP erythromycin base Adverse Reaction (Verified 03/25/25 15:55) Upset Stomach milk (dairy) Adverse Reaction (Verified 03/25/25 15:55) Upset Stomach morphine Adverse Reaction (Verified 03/25/25 15:55) Nausea Medications ???Medication ???Instructions ???Recorded ???Confirmed ???Type fluticasone 500 mcg-salmeterol 50 1 puff inhalation BID shortness o f 01/23/15 03/25/25 History mcg/dose blistr powdr for breath inhalation (Advair Diskus) albuterol sulfate 90 mcg/actuation 1 - 2 puff inhalation Q4H PRN 03/25/25 History aerosol inhaler (ProAir HFA) Asthma montelukast 10 mg tablet 10 mg PO QHS allergies 04/15/15 History atorvastatin 20 mg tablet 20 mg PO QHS cholesterol 09/23/22 03/25/25 History citalopram 40 mg tablet 30 mg PO QHS sleep 09/23/22 History empagliflozin 10 mg tablet 10 mg PO DAILY diabetes 09/23/22 0 03/25/25 History (Jardiance) hydrochlorothiazide 12.5 mg tablet 12.5 mg PO DAILY blood pressure 09/23/22 03/25/25 History leflunomide 20 mg tablet 20 mg PO DAILY inflammation 03/25/25 History levetiracetam 750 mg 750 mg PO QHS seizures 09/23/22 History tablet,extended release 24 hr losartan 100 mg tablet 100 mg PO QHS blood pressure 09/2303/25/25 History metformin 500 mg tablet 500 mg PO DAILY diabetes 09/23/22 03/25/25 History ondansetron HCl 4 mg tablet 4 mg PO Q8H PRN Nausea 09/23/22 History potassium chloride 20 mEq 20 meq PO DAILY potassium 09/23/22 03/25/25 History tablet,extended release quetiapine 100 mg tablet 200 mg PO QHS mood disorder 03/25/25 History tiotropium bromide 2.5 2 puff inhalation DAILY shortness 09/23/22 03/25/25 History mcg/actuation mist for inhalation of breath (Spiriva Respimat) meclizine 25 mg tablet 25 mg PO BID dizziness 11/26/22 History venlafaxine 150 mg 225 mg PO DAILY mood 12/15/2212/14 History capsule,extended release 24 hr aspirin 81 mg tablet,delayed 81 mg PO DAILY heart 01/06/2312/14 History release (Adult Low Dose Aspirin) Held on 11/28/24. Instructions: Resume on 12/13/24. guaifenesin 600 mg tablet, 600 mg PO BID PRN congestion 04/2903/25/25 History extended release 12 hr (Mucinex) prednisone 20 mg tablet 5 mg PO DAILY PRN pain 04/29/23 History fluticasone propionate 50 1 spray intranasal DAILY allergy 0 10/12/23 03/25/25 History mcg/actuation nasal symptoms spray,suspension alprazolam 0.5 mg tablet 0.5 mg PO DAILY PRN Anxiety #10 03/25/25 Rx tabs alprazolam 1 mg tablet 1 mg PO QHS #20 tabs 10/18/2312/14 Rx pregabalin 75 mg capsule 75 mg PO BID 01/17/24 03/25/25 His tory metoprolol tartrate 25 mg tablet 25 mg PO BID #180 tabs 05/30/24 Rx furosemide 40 mg tablet 20 mg (1/2 x 40 mg) PO DAILY PRN 1 09/15/23 03/25/25 Rx edema #30 tabs tirzepatide 5 mg/0.5 mL 5 mg subcut QWEEK 11/22/24 5 History subcutaneous pen injector (Mounjaro) acetaminophen 500 mg tablet 1,000 mg (2 x 500 mg) PO Q8H #180 11/28/24 03/25/25 Rx tabs aspirin 81 mg tablet,delayed 81 mg PO BIDCM 2 weeks #28 tabs 03/25/25 Rx release doxycycline monohydrate 100 mg 100 mg PO BID 7 days #14 caps 05/1603/25/25 Rx capsule oxycodone 5 mg tablet 5 - 10 mg (1 - 2 x 5 mg) PO Q4H 03/25/25 (more content not included)... Normal [facility] CNOVon 03-05-2025 CNOV Office Visit (KWASI ) RAJWINDER WYLIE ([id number]) 1950 F Date Time Provider Department 03/05/25 1:30 PM SHEELA MCLAIN During your visit today, we recorded the following information about you: Pulse Respiration Blood pressure Weight 75/minute 16/minute 111/75 94.8 kg Sheela Mclain PA-C 03/05/2025 2:41 PM Signed [facility] Name: Rajwinder Wylie Age: [age] year old Gender: female Primary Care Provider: Davion Peoples MD Assessment/Plan: 03/05/2025 - General NeurologySheela PA-C ASSESSMENT ASSESSMENT/PLAN: 1. Neuropathy - ICD9: 355.9, ICD10: G62.9 (primary diagnosis) Stable neuropathy, no change. Notes improvement in falls of the last falls but a week ago where she tripped. Likely secondary to neuropathy. Symptoms are well-controlled on Lyrica 75 mg twice daily and requesting refill today. This was given for 6 months. Recent labs showing creatinine of 1.3 and GFR of 42. No new symptoms that would warrant additional workup at this time. 2. Nonintractable episodic headache, unspecified headache type - ICD9: 784.0, ICD10: R51.9 Stable on Keppra 750 mg, refills given. 3. RLS (restless legs syndrome) - ICD9: 333.94, ICD10: G25.81 Well-managed 4. SANTHOSH (obstructive sleep apnea) - ICD9: 327.23, ICD10: G47.[address] Gudino 5. Recurrent falls - ICD9: V15.88, ICD10: R29.6 Notes improvement, no major injuries. Last fall was about a week ago as she tripped, likely secondary to neuropathy. 6. Restless legs syndrome - ICD9: 333.94, ICD10: G25.81 7. Degeneration of intervertebral disc of lumbosacral region, unspecified whether pain present - ICD9: 722.52, ICD10: M51.379 Stable. 8. Left hand pain - ICD9: 729.5, ICD10: M79.642 9. Carpal tunnel syndrome of left wrist - ICD9: 354.0, ICD10: G56.02 Reporting some left hand pain, history of carpal tunnel surgery in her 20s. Reporting discomfort in the first 3 digits concerning for carpal tunnel syndrome. Discussed EMG study and patient is amenable to this. Will likely follow with orthopedics afterwards. Patient agreeable to treatment plan of care at this time, all questions were answered. Patient to follow-up in 6 months. Sheela Mclain PA-C Encounter Diagnosis ICD-10-CM 1. Neuropathy G62.9 pregabalin (LYRICA) 75 mg capsule levETIRAcetam ER (KEPPRA XR) 750 mg 24 hr tablet 2. Nonintractable episodic headache, unspecified headache type R51.9 pregabalin (LYRICA) 75 mg capsule levETIRAcetam ER (KEPPRA XR) 750 mg 24 hr tablet 3. RLS (restless legs syndrome) G25.81 4. SANTHOSH (obstructive sleep apnea) G47.33 5. Recurrent falls R29.6 6. Restless legs syndrome G25.81 7. Degeneration of intervertebral disc of lumbosacral region, unspecified whether pain present M51.379 8. Left hand pain M79.642 EMG(NEURO/NI) 9. Carpal tunnel syndrome of left wrist G56.02 EMG(NEURO/NI) Return in about 6 months (around 09/05/2025). Chart, labs,and relevant images reviewed. Chief Complaint:Patient presents with: Follow Up: Med refills. Other problems Chart Review: 06/15/[address] Gudino ASSESSMENT/PLAN: 1. Obstructive sleep apnea (adult) (pediatric) - ICD9: 327.23, ICD10: G47.33 (primary diagnosis) Inconsistent histories as to why not using and how long not using. I do not have a download available for review that shows use in the past 90 days. Encouraged patient restart and use PAP nightly so long as device is still functioning. If not she is to contact us. Encouraged weight loss. Reminded pt to clean and replace equipment regularly. 2. Encounter for long-term (current) use of medications - ICD9: V58.69, ICD10: Z79.899 Due to long time use of Lyrica. Note we are not Rx but pt also on Xanax through outside provider. Appears for anxiety. Note that pt insomnia based on sleep-wake time preference (circadian). Pt provides inconsistent history as to how much Xanax taking vs that Rx'd - see above. 3. Neuropathy - ICD9: 355.9, ICD10: G62.9 4. Restless legs syndrome - ICD9: 333.94, ICD10: G25.81 Appears stable so long as on Lyrica and Keppra and taking as Rx'd. Note that Lyrica has not been just recenlty refilled due to lack of follow ups. Now back, on and restarting, but needs to be renal dosed at 75mg BID. SE and ADRs again reviewed with pt. 5. Recurrent falls - ICD9: V15.88, ICD10: R29.6 6. Balance problems - ICD9: 781.99, ICD10: R26.89 Etiology unclear. Again, inconsistent histories above. Need to get hospital records for review. Med records suggest no LOC. Was on AEDs at time of event. Will consider further workup once can review all med records as do not want to repeat testing. Consider EEG. Consider cardiac workup. However these may have been completed. Also question if pt taking meds different than Rx'd based on Xanax history above. 7. Nonintractable episodic headache, u (more content not included)... Normal [facility] CNPNon 02-11-2025 CNPN Telephone (NMMDNA) RAJWINDER WYLIE ([id number]) 1950 F Date Time Provider Department 02/11/25 SHRUTI VINCENT During your visit today, we recorded the following information about you: Analia Garcia MA 02/11/2025 10:03 AM Signed Received continuity of care document from patient for labs have been sent to scanning. Allergies As of Date: 02/11/2025 Noted Allergy Reaction BACTRIM (SULFAMETHOXAZOLE-TRIMETH*1 09/17/2016 4 - Hives ERYTHROMYCIN 12/21/2011 8 - GI Upset 11 - Vomiting NUT - UNSPECIFIED 08/08/2012 10 - Anaphylaxis Comments: Tree Nuts. Anaphylaxis. NATURAL OATMEAL (DIMETHICONE) 04/29/2023 6 - Diarrhea PINEAPPLE 02/25/2020 14 - Other: See Comments Comments: Causes mouth to feel razors Date Reviewed: 01/23/2025 Reviewed by: Celia Jenkins LPN - Fully Assessed Reason for Visit: Results [95] Cmt: Labs Prescriptions as of 02/11/2025 - fluticasone-salmeterol (ADVAIR DISKUS) 500-50 mcg/dose dsdv Inhale 1 puff as instructed two times a day. - pregabalin (LYRICA) 75 mg capsule Take 1 capsule by mouth two times a day for 30 days. - MOUNJARO 5 mg/0.5 mL pen injector Inject 5 mg subcutaneously one time a week. - traMADol (ULTRAM) 50 mg tablet Take 50 mg by mouth every 6 hours as needed. - metFORMIN ER (GLUCOPHAGE XR) 500 mg 24 hr tablet Take 500 mg by mouth daily with breakfast. - furosemide (LASIX) 40 mg tablet Take 40 mg by mouth as needed. - cetirizine (ZYRTEC) 10 mg tablet Take 10 mg by mouth once daily. - calcium carbonate 600 mg-cholecalciferol 200 units 600 mg-5 mcg (200 unit) tab 1 tablet once daily. - aspirin, enteric coated (ASPIRIN, ENTERIC COATED) 81 mg EC tablet Take 81 mg by mouth once daily. - levETIRAcetam ER (KEPPRA XR) 750 mg 24 hr tablet Take 1 tablet by mouth once daily. - montelukast (SINGULAIR) 10 mg tablet TAKE 1 TABLET DAILY AT BEDTIME - Atomoxetine 80 mg capsule once daily. - cevimeline (EVOXAC) 30 mg capsule three times a day. - TRULICITY 1.5 mg/0.5 mL pen injector one time a week. - Etanercept (ENBREL SURECLICK) 50 mg/mL (1 mL) one time a week. - glipiZIDE (GLUCOTROL XL) 5 mg 24 hr tablet once daily. - meclizine (ANTIVERT) 25 mg tab two times a day. - metoprolol tartrate, short acting, (LOPRESSOR) 25 mg tablet Take 25 mg by mouth two times a day. - ondansetron (ZOFRAN) 4 mg tablet as needed for nausea/vomiting. - guaiFENesin (MUCINEX) 600 mg 12 hr tablet Take 1 tablet by mouth twice daily. - Mucus Clearing Device jeannine Provide 1 mucus clearing device. - albuterol (PROVENTIL) 2.5 mg /3 mL (0.083 %) nebulizer solution USE 3 ML VIA NEBULIZER EVERY 6 HOURS NEED OVER 5-15 MINUTES FOR WHEEZING AND SHORTNESS OF BREATH - albuterol HFA (PROAIR HFA) 90 mcg/actuation inhaler Inhale 2 Puffs as instructed every 4 hours as needed for wheezing/shortness of breath. - ipratropium (ATROVENT) 0.02 % nebulizer solution Use 2.5 mL via nebulizer four times daily as needed for wheezing/shortness of breath. OVER 5-15 MINUTES FOR WHEEZING OR SHORTNESS OF BREATH - JARDIANCE 10 mg tablet Take 10 mg by mouth once daily. - CPAP In-line filter - Respironics Device. Lifetime supplies. - CPAP Please set at 10-20 cmH2O with humidity with download to us in 4 weeks. Also please provide mask fitting (dreamwear under the nose nasal mask). - potassium chloride 20 mEq TbER Take 1 tablet by mouth once daily. - atorvastatin (LIPITOR) 20 mg tablet Take 20 mg by mouth once daily. - leflunomide (ARAVA) 20 mg tablet Take 20 mg by mouth once daily. - Nebulizer Accessories kit Provide nebulizer kit. - Nebulizer and Compressor For Neb Provide nebulizer. - CPAP Please eval pts machine as not providing downloads. If you can get download please send us copy. Also please provided mask fitting as pts mask leaking. - ipratropium (ATROVENT) 0.02 % nebulizer solution Use 2.5 mL via nebulizer one time only for 1 dose. OVER 5-15 MINUTES FOR WHEEZING OR SHORTNESS OF BREATH - predniSONE (DELTASONE) 10 mg tablet 2 DAILY FOR 1 WEEK THEN 1 TAB DAILY FOR 1 WEEK. KEEP REMAINDER ON HAND FOR FUTURE FLARES - venlafaxine ER (EFFEXOR XR) 150 mg 24 hr capsule 300 mg once daily. - fluticasone (FLONASE) 50 mcg/actuation nasal spray Use 1 [place] in each nostril once daily. - losartan (COZAAR) 50 mg tablet Take 1 tablet by mouth once daily. - citalopram (CELEXA) 20 mg tablet Take 30 mg by mouth once daily. - QUEtiapine (SEROQUEL) 100 mg tablet Take 200 mg by mouth daily at bedtime. - amLODIPine 5 mg ORAL tablet Take 5 mg by mouth once daily. - hydrochlorothiazide 25 mg ORAL tablet Take 12.5 mg by mouth once daily. - ALPRAZolam (XANAX) 0.5 mg tablet Take 0.5 mg by mouth at bedtime as needed. Problem List As Of Date 02/11/2025 Noted Resolved Asthma [J45.909] 05/16/2013 SANTHOSH (obstructive sleep apnea) [G47.33] 05/16/2013 Obesity [E66.9] (more content not included)... Normal [facility] CT CHEST WO IVCONon 02-06-20 CT CHEST WO IVCON * * *Final Report* * * DATE OF EXAM: Feb 05 2025 2:40PM [facility] 0541 - CT CHEST WO IVCON / PROCEDURE REASON: Lung nodules * * * * Physician Interpretation * * * * EXAMINATION: CHEST CT WITHOUT CONTRAST CLINICAL HISTORY: Lung nodules Technique: Spiral CT acquisition of the chest from the thoracic inlet to the upper abdomen without contrast. MQ: [id number] CT Radiation dose: Integrated Dose-length product (DLP) for this visit = 433 mGy*cm CT Dose Reduction Employed: Automated exposure control(AEC) and iterative recon Comparison: 07/01/2023, 05/31/2022 RESULT: Limitations: None. Lines, tubes, and devices: Streak artifact from bilateral shoulder arthroplasty limits evaluation of the extreme upper chest. Lung parenchyma and airways: There is no pneumothorax or endobronchial lesion. Reticulation is seen within the periphery of the lungs and lower lobes, bilaterally, compatible with interstitial disease. There are associated regions of groundglass attenuation and air trapping seen within both lungs, suggesting reactive airways disease. Sequela of remote granulomatous disease. There are stable subcentimeter pulmonary nodules. For example, this is a stable, approximately 8 mm subpleural nodule seen within the right lower lobe (series 5, image #130). No new pulmonary nodule is identified. Pleural space: No pleural effusion. Lower neck, lymph nodes, and mediastinum: There are no pathologically enlarged axillary, mediastinal, or hilar lymph nodes. Heart, pericardium, and thoracic vessels: Atherosclerotic calcifications are present within the thoracic aorta and coronary arteries. Fatty replacement of the endotracheal septum. The heart is normal in size. There is no significant pericardial effusion. Bones and soft tissues: There is a nonunited fracture seen involving the right lateral ninth rib. Calcifications are seen within the right breast. Bilateral shoulder DJD. There is disc space narrowing, with vacuum disc phenomena seen at multiple levels within the thoracic spine. Upper abdomen: Nonspecific wall thickening of the stomach likely relates to underdistention. There is mild, nonspecific bilateral perinephric fat stranding. There is approximately 1.5 cm exophytic cyst arising from the upper pole of the right kidney (series 5, image #24). The gallbladder is relatively collapsed but is otherwise unremarkable. Interval development of a complex appearing both cystic and solid lesion either arising from or adjacent to the pancreatic body, measuring approximately 4.7 x 3.1 cm (series 5, image #182). Pancreas-biliary portable MRI is recommended for further evaluation. This fatty atrophy of the pancreas. Gallbladder is relatively collapsed. IMPRESSION: Reticulation seen within the periphery of the lungs and lower lobes, bilaterally, suggesting interstitial disease. Associated regions of groundglass attenuation and trapping within both lungs, suggesting reactive airways disease. There are stable subcentimeter pulmonary nodules. No cherry lymphadenopathy is seen within the chest. Interval development of a a cystic and solid lesion either arising from or adjacent to the pancreatic body. Pancreas-biliary protocol MRI is recommended for further evaluation. ACTIONABLE RESULT: FOLLOW-UP Acuity: Actionable Findings: Pancreas/Biliary Routing Code: PB_1 Recommendation: MRI PANCREAS/BILIARY WO/W IV CONTRAST Time Frame: Non-urgent, but prompt follow-up COMMUNICATION: Results will be communicated with the ordering provider via [employer] staff message or phone message by [facility] within 2 business days of report finalization. --END OF FINDING-- Rn Utilization Management Um: JAMES Transcribe Date/Time: Feb 06 2025 6:39A Dictated by : RAHEEM WEBSTER MD This examination was interpreted and the report reviewed and electronically signed by: RAHEEM WEBSTER MD on Feb 06 2025 6:49AM EST [id number] ACTIONABLE Invalid Interpretation Code [facility] CNOVon 01-23-2025 CNOV Office Visit (PULMWS ) RAJWINDER WYLIE ([id number]) 1950 F Date Time Provider Department 01/23/25 3:00 PM ANALIA RIVERA PULMWS During your visit today, we recorded the following information about you: Analia Rivera PA-C 01/25/2025 8:00 AM Signed Patient Name: Rajwinder Wylie PRIMARY CARE PROVIDER: Davion Peoples MD REASON FOR VISIT: No chief complaint on file. HPI: 74 year old obese female, former 10 pack year smoker, with PMH significant for Asthma, SANTHOSH on CPAP, RA, Sjogren's, CAD, s/p PCI 01/26/[address] 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 Did have allergies as child, required immunotherapy. Asthma had been under good control until COVID infection in August. Current therapy consists of Advair, Singulair and as needed Albuterol. Rajwinder was found unresponsive by the insurance rater in her home in early September 2023 following a welfare check initiated by her therapist and physician due to missed appointments. She has no recollection of events leading up to her hospitalization or the initial period of her hospital stay, with her first memory being at [facility] around mid-November. She was hospitalized for approximately 6 days secondary to sepsis most likely from an UTI, and then transferred to [facility] for rehabilitation, where she stayed until mid-February 2024. Since returning home, she reports her breathing has been pretty good and she has been using her CPAP at night, stating she does not sleep well without it. She has not needed to use her rescue inhaler. She has been using both Advair and Symbicort inhalers, but prefers Advair due to the taste of Symbicort. She also takes Singulair and recently received a new bottle. She reports frequent falls and balance issues, which she attributes to missing toes. She has a 9-month-old Giant Schnauzer puppy that she is training to be a service dog to assist with her balance. She also has a Life Alert system, which she is in the process of setting up. She underwent reverse shoulder surgery on November 26, which took longer than expected due to a 5-year delay in seeking treatment. She developed pneumonia postoperatively, which she attributes to being intubated during the surgery. She reports occasional coughing and expects to need another surgery due to her humerus being approximately 4 inches lower than it should be. She experiences clicking in her shoulder and has monthly follow-up appointments with her surgeon, who monitors her condition with X-rays. She reports feeling isolated and unsupported by her catholic community, who she believes judged her for the condition of her home during her hospitalization. She is considering finding a new catholic and exploring other social activities to improve her sense of community and support. Modified Medical [employer] [place] Dyspnea Scale (MMRC) I get short of breath when hurrying on level ground or walking up a slight hill 1 PAST MEDICAL HISTORY Diagnosis Date Asthma First degree heart block 05/16/2013 Outside post 9-11 follow-up screening, 2012. Hypertension 05/16/2013 Lyme disease Meniere disease Obesity 05/16/2013 SANTHOSH (obstructive sleep apnea) 05/16/2013 CPAP 11. Claims to be CPAP compliant. RA (rheumatoid arthritis) ([facility]) 2013 Sinus arrhythmia 05/16/2013 Outside post 911 follow-up screening, 2012. Sinusitis Sjogren's disease ([facility]) Allergies: Bactrim [Sulfametho* Hives Erythromycin GI Upset, Vomiting Nut - Unspecified Anaphylaxis Comment:Tree Nuts. Anaphylaxis. Natural Oatmeal [Di* Diarrhea Pineapple Other: See Comments Comment:Causes mouth to feel razors pregabalin (LYRICA) 75 mg capsule Take 1 capsule by mouth two times a day for 30 days. budesonide-formoterol (SYMBICORT) 160-4.5 mcg/actuation inhaler Inhale 2 Puffs as instructed two times a day. MOUNJARO 5 mg/0.5 mL pen injector Inject 5 mg subcutaneously one time a week. traMADol (ULTRAM) 50 mg tablet Take 50 mg by mouth every 6 hours as needed. metFORMIN ER (GLUCOPHAGE XR) 500 mg 24 hr tablet Take 500 mg by mouth daily with breakfast. furosemide (LASIX) 40 mg tablet Take 40 mg by mouth as needed. cetirizine (ZYRTEC) 10 mg tablet Take 10 mg by mouth once daily. calcium carbonate 600 mg-cholecalciferol 200 units 600 mg-5 mcg (200 unit) tab 1 tablet once daily. aspirin, enteric coated (ASPIRIN, ENTERIC COATED) 81 mg EC tablet Take 81 mg by mouth once daily. levETIRAcetam ER (KEPPRA XR) 750 mg 24 hr tablet Take 1 tablet by mouth once daily. montelukast (SINGULAIR) 10 mg tablet TAKE 1 TABLET DAILY AT BEDTIME Atomoxetine 80 mg capsule once daily. cevimeline (EVOXAC) 30 mg capsule three times a day. TRULICITY 1.5 mg/0.5 mL pen injector one time a week. (Patient not taking: Reported on 09/19/2023) (more content not included)... Normal [facility] Bedside Glucoseon 11-28-2024 FINGERSTICK GLU 141 mg/dL High 74-106 [facility] Comment on above: Result Comment: SARAI GEMENT OF PATIENT CARE PER NURSING PROTOCOL Performed By: #### L 501.080 #### [facility] [address] [facility] [address] FINGERSTICK GLU 149 mg/dL High [address] [place] [address] Comment on above: Result Comment: SARAI GEMENT OF PATIENT CARE PER NURSING PROTOCOL Performed By: #### L 501.080 #### [facility] [address] [place], [address] FINGERSTICK GLU 113 mg/dL High [address] [place] [address] Comment on above: Result Comment: SARAI GEMENT OF PATIENT CARE PER NURSING PROTOCOL Performed By: #### L 501.080 #### [facility] [address] [place], [address] FINGERSTICK GLU 151 mg/dL High [address] [place] [address] Comment on above: Result Comment: SARAI GEMENT OF PATIENT CARE PER NURSING PROTOCOL Performed By: #### L 501.080 #### [facility] [address] [place], [address] Glucose measurement at [facility] deOrdered By: Andrew Rodriguez on 11-28-2024 Bedside [facility] 141 mg/dL High -106 [facility] Comment on above: MANAGEMENT OF PATIEN T CARE PER NURSING PROTOCOL Glucose [Mass/Vol] 141 mg/dL High [facility]106 [facility] Comment on above: MANAGEMENT OF PATIEN T CARE PER NURSING PROTOCOL Anion gap in Serum or Plasma Ordered By: Andrew Rodriguez on 11-27-2024 Anion gap [Moles/Vol] 13 mmol/L 5-15 [facility] BUN/creatinine ratioOrdered By: Andrew Rodriguez on 11-27-2024 Urea nitrogen/Creatinine [Mass ratio] 19.1 mg/mg 10- [facility] Basic Metabolic Profile (BMP )on 11-27-2024 BUN/CRE 19.1 RATIO Normal - [facility] Comment on above: Performed By: #### L 100.0500, L500.2500 #### [facility] [address] [place], [address] Calcium [Mass/Vol] 8.4 mg/dL Normal 7.6-11.0 [facility] Comment on above: Performed By: #### L 100.0500, L500.2500 #### [facility] [address] [place], [address] Chloride [Moles/Vol] 106 mmol/L Normal 98-108 [facility] Comment on above: Performed By: #### L 100.0500, L500.2500 #### [facility] [address] [place], [address] CO2 [Moles/Vol] 18.6 mmol/L Low 21.0-32.0 [facility] Comment on above: Performed By: #### L 100.0500, L500.2500 #### [facility] [address] [place], [address] Creatinine [Mass/Vol] 1.05 mg/dL Normal 0.70-1.20 [facility] Comment on above: Performed By: #### L 100.0500, L500.2500 #### [facility] [address] [place], [address] ECRCL 55.16 ml/min Normal 50-250 [facility] Comment on above: Performed By: #### L 100.0500, L500.2500 #### [facility] [address] [place], [address] GAP 13 Normal 5-15 [facility] Comment on above: Performed By: #### L 100.0500, L500.2500 #### [facility] [address] [place], [address] GFR/1.73 sq M.predicted among non-blacks MDRD (S/P/Bld) [Vol rate/Area] 56 mL/min/{1.73_m2} Low >60 [facility] Comment on above: Result Comment: mL/m in/1.73m2 CKD-EPI Creatinine Equation (2020) Performed By: #### L 100.0500, L500.2500 #### [facility] [address] [place], [address] Glucose [Mass/Vol] 121 mg/dL High 70-99 [facility] Comment on above: Performed By: #### L 100.0500, L500.2500 #### [facility] [address] [place], [address] Potassium [Moles/Vol] 4.5 mmol/L Normal 3.3-5.1 [facility] Comment on above: Performed By: #### L 100.0500, L500.2500 #### [facility] [address] [place], [address] Sodium [Moles/Vol] 137 mmol/L Normal 133-145 [facility] Comment on above: Performed By: #### L 100.0500, L500.2500 #### [facility] [address] [place], [address] Urea nitrogen [Mass/Vol] 20 mg/dL High 4-19 [facility] Comment on above: Performed By: #### L 100.0500, L500.2500 #### [facility] [address] [place], [address] Bedside Glucoseon 11-27-2024 FINGERSTICK GLU 152 mg/dL High 74-106 [facility] Comment on above: Result Comment: SARAI GARCIA OF PATIENT CARE PER NURSING PROTOCOL Performed By: #### L 501.080 #### [facility] [address] [place], [address] FINGERSTICK GLU 152 mg/dL High 74-106 [facility] Comment on above: Result Comment: SARAI GEMENT OF PATIENT CARE PER NURSING PROTOCOL Performed By: #### L 501.080 #### [facility] [address] [place], [address] FINGERSTICK GLU 126 mg/dL High 74-106 [facility] Comment on above: Result Comment: SARAI GEMENT OF PATIENT CARE PER NURSING PROTOCOL Performed By: #### L 501.080 #### [facility] [address] [place], [address] CBC-Complete Blood Cnt No Di ffon 11-27-2024 Erythrocyte distribution width (RBC) [Ratio] 15.2 % High 11.6-14.6 [facility] Comment on above: Performed By: #### L 100.0500, L500.2500 #### [facility] [address] [place], [address] Hematocrit (Bld) [Volume fraction] 39.0 % Normal 37-47 [facility] Comment on above: Performed By: #### L 100.0500, L500.2500 #### [facility] [address] [place], [address] Hemoglobin (Bld) [Mass/Vol] 12.1 g/dL Normal 12.0-15.0 [facility] Comment on above: Performed By: #### L 100.0500, L500.2500 #### [facility] [address] [place], [address] MCH (RBC) [Entitic mass] 26.2 pg Low 27.0-32.0 [facility] Comment on above: Performed By: #### L 100.0500, L500.2500 #### [facility] [address] [place], [address] MCHC (RBC) [Mass/Vol] 31.0 g/dL Low 32-36 [facility] Comment on above: Performed By: #### L 100.0500, L500.2500 #### [facility] [address] [place], [address] MCV (RBC) [Entitic vol] 84.4 fL Normal 81-99 [facility] Comment on above: Performed By: #### L 100.0500, L500.2500 #### [facility] [address] [place], [address] Platelet mean volume (Bld) [Entitic vol] 10.3 fL Normal 6.2-12.0 [facility] Comment on above: Performed By: #### L 100.0500, L500.2500 #### [facility] [address] [place], [address] Platelets (Bld) [#/Vol] 167 10*3/uL Normal 150-450 [facility] Comment on above: Performed By: #### L 100.0500, L500.2500 #### [facility] [address] [place], [address] RBC (Bld) [#/Vol] 4.62 10*6/uL Normal 4.2-5.4 [facility] Comment on above: Performed By: #### L 100.0500, L500.2500 #### [facility] [address] [place], [address] RDW SD 45.9 fl High 35.1-43.9 [facility] Comment on above: Performed By: #### L 100.0500, L500.2500 #### [facility] [address] [place], [address] WBC (Bld) [#/Vol] 9.7 10*3/uL Normal 4.4-11.0 [facility] Comment on above: Performed By: #### L 100.0500, L500.2500 #### [facility] [address] [place], [address] Carbon dioxide, total [Moles /volume] in Central venous bloodOrdered By: Andrew Rodriguez on 11-27-2024 CO2 [Moles/Vol] 18.6 mmol/L Low 21.0-32.0 [facility] Chloride assayOrdered By: Makeda cholarcelia Rodriguez on 11-27-2024 Chloride [Moles/Vol] 106 mmol/L 98-108 [facility] Erythrocyte distribution wid th (RBC) [Ratio]Ordered By: Andrew Rodriguez on 11-27-2024 Erythrocyte distribution width (RBC) [Entitic vol] 45.9 fL High 35.1-43.9 [facility] Erythrocyte distribution wid th ratioOrdered By: Andrew Rodriguez on 11-27-2024 Erythrocyte distribution width (RBC) [Ratio] 15.2 % High 11.6-14.6 [facility] Erythrocyte distribution wid th standard deviationOrdered By: Andrew Rodriguez on 11-27-2024 Erythrocyte distribution width (RBC) [Ratio] 45.9 fl High 35.1-43.9 [facility] Estimation of creatinine magnus aranceOrdered By: Andrew Rodriguez on 11-27-2024 Estimated Creatinine Clearance Calc 55.16 ml/min 50-250 [facility] GFR/1.73 sq M.predicted dimitri g non-blacks MDRD (S/P/Bld) [Vol rate/Area]Ordered By: Andrew Rodriguez on 11-27-2024 Estimated GFR (MDRD) Non-Af Amer 56 Low >60 [facility] Comment on above: mL/min/1.73m2 CKD-EP I Creatinine Equation (2020) Glomerular filtration rate ( GFR) estimation/1.73 sq m using serum, plasma, or whole bOrdered By: Andrew Rodriguez on 11-27-2024 GFR/1.73 sq M.predicted among non-blacks MDRD (S/P/Bld) [Vol rate/Area] 56 mL/min/{1.73_m2} Low >60 [facility] Comment on above: mL/min/1.73m2 CKD-EP I Creatinine Equation (2020) Hematocrit Auto (Bld) [Volum e fraction]Ordered By: Andrew Rodriguez on 11-27-2024 Hematocrit (Bld) [Volume fraction] 39.0 % 37-47 [facility] Hemoglobin measurementOrdere d By: Andrew Rodriguez on 11-27-2024 Hemoglobin (Bld) [Mass/Vol] 12.1 g/dL 12.0-15.0 [facility] MCV (mean corpuscular volume ) determinationOrdered By: Andrew Rodriguez on 11-27-2024 MCV (RBC) [Entitic vol] 84.4 fL 81-99 [facility] Mean corpuscular hemoglobin (MCH) determinationOrdered By: Andrew Rodriguez on 11-27-2024 MCH (RBC) [Entitic mass] 26.2 pg Low 27.0-32.0 [facility] Mean corpuscular hemoglobin concentration (MCHC) determinationOrdered By: Andrew Rodriguez on 11-27-2024 MCHC (RBC) [Mass/Vol] 31.0 g/dL Low 32-36 [facility] Mean platelet volume determi nationOrdered By: Andrew Rodriguez on 11-27-2024 Platelet mean volume (Bld) [Entitic vol] 10.3 fL 6.2-12.0 [facility] Platelet countOrdered By: Makeda Rodriguez on 11-27-2024 Platelets (Bld) [#/Vol] 167 10*3/uL 150-450 [facility] Potassium (Unsp spec) [Mass/ Vol]Ordered By: Andrew Rodriguez on 11-27-2024 Potassium [Moles/Vol] 4.5 mmol/L 3.3-5.1 [facility] Potassium measurement (mass/ volume)Ordered By: Andrew Rodriguez on 11-27-2024 Potassium (Unsp spec) [Mass/Vol] 4.5 mmol/L 3.3-5.1 [facility] RBC Auto (Bld) [#/Vol]Ordere d By: Andrew Rodriguez on 11-27-2024 RBC (Bld) [#/Vol] 4.62 10*6/uL 4.2-5.4 [facility] Serum creatinine measurement (mass/volume)Ordered By: Andrew Rodriguez on 11-27-2024 Creatinine [Mass/Vol] 1.05 mg/dL 0.70-1.20 [facility] Serum glucose measurement (m ass/volume)Ordered By: Andrew Rodriguez on 11-27-2024 Glucose [Mass/Vol] 121 mg/dL High 70-99 [facility] Serum or plasma calcium javad urement (mass/volume)Ordered By: Andrew Rodriguez on 11-27-2024 Calcium [Mass/Vol] 8.4 mg/dL 7.6-11.0 [facility] Serum or plasma urea nitroge n measurement (mass/volume)Ordered By: Andrew Rodriguez on 11-27-2024 Urea nitrogen [Mass/Vol] 20 mg/dL High 4-19 [facility] Sodium levelOrdered By: Maik Rodriguez on 11-27-2024 Sodium [Moles/Vol] 137 mmol/L 133-145 [facility] White blood cell (WBC) count Ordered By: Andrew Rodriguez on 11-27-2024 WBC (Bld) [#/Vol] 9.7 10*3/uL 4.4-11.0 [facility] Bedside Glucoseon 11-26-2024 FINGERSTICK GLU 178 mg/dL High 74-106 [facility] Comment on above: Result Comment: SARAI VASQUEZENT OF PATIENT CARE PER NURSING PROTOCOL Performed By: #### L 501.080 #### [facility] [address] [place], [place], [address] FINGERSTICK GLU 117 mg/dL High 74-106 [facility] Comment on above: Result Comment: SARAI VASQUEZENT OF PATIENT CARE PER NURSING PROTOCOL Performed By: #### L 501.080 #### [facility] [address] [place], [place], [address] Decalcification bone/plaqueo n 11-26-2024 Decalcification bone/plaque Patient Age/Sex Location Account Attending Physician RAJWINDER WYLIE 74/F MS3 [id number] Dr. Andrew Rodriguez DO Specimen: [id number] Received: 11/26/24 Status: BROOKE Ryan Num: [id number] Spec Type: HUMERUS Subm Dr: DO DARREL Toussaint OPERATION: Right reverse total shoulder arthroplasty PRE-OP DIAGNOSIS: Right proximal humerus fracture, arthritis TISSUE SUBMITTED: A- Humeral head MICROSCOPIC DIAGNOSIS A. Right shoulder, humeral head fracture, total arthroplasty: * Articular bone and synovium with reactive/degenerative changes. MICROSCOPIC DESCRIPTION Slides are reviewed. GROSS DESCRIPTION A. Received in formalin in a container labeled with the patient's name, date of , and humeral head are multiple reinoso-pink, irregular, and firm fragments of bone measuring 5.0 x 5.0 x 2.2 cm in aggregate. The margins are firm and previously disrupted. The cortex is pitted and granular with reinoso-pink nodules at the periphery. Sectioning reveals firm surfaces. Clinical Pharmacy Coordinator sections submitted in A1 following decalcification. [facility] 11-26-2024 [facility]:[id number] Patient Age/Sex Location Account Attending Physician RAJWINDER WYLIE 74/F MS3 [id number] Dr. Andrew Rodriguez DO Signed (signature on file) Dr. Deyanira Meraz MD 12/17/[address] [facility] Comment on above: Performed By: #### L 501.080 #### [facility] [address] [place], [address] MR/POSTOP.ANEon 11-26-2024 MR/POSTOP.ANE [facility] Medical Records Department [address] [place] [address] Anesthesia Postop Eval I 11/26/24 1239 MR#: [id number] Acct: [id number] Name: RAJWINDER WYLIE Rep #: [id number] : 1950 74 From: Wai Rey CRNA PCP: Dr. Davion Peoples MD Status:REG [facility] [place] Race: C Location: [place] [address] Anesthesia: Postop Eval I Current Vital Signs Temperature: 96.6 F Pulse Rate: 67 Blood Pressure: 133/63 Respiratory Rate: 16 Pulse Ox: 95 Oxygen Delivery Method: Venturi Mask Oxygen Flow Rate (L/min): 4 Assessment Airway patent: Yes Spontaneous unlabored respirations: Yes Mental status: Awake and Calm nausea: No Vomiting: No Anesthesia Complication: No Fluid Hydration Crystalloid volume administer (ml): 1,800 Total IV fluid infused: 1,800 Progress Note Anesthesia document: Postop Eval 1 completed: Yes 11/26/24 1240 Date Wai Schultz Signature: Date CC: Signed Normal [facility] MR/APHRHSLD3dz 11-26-2024 MR/POSTOPAN2 [facility] Medical Records Department [address] [place] [address] Anesthesia Postop Eval II 11/26/24 1357 MR#: [id number] Acct: [id number] Name: RAJWINDER WYLIE Rep #: [id number] : 1950 74 From: Waqas Flores MD PCP: Dr. Davion Peoples MD Status:ADM TAI Y Race: C Location: [place] [address]-1 Anesthesia Postop Eval I Sum Postop Eval Completion status Anesthesia document: Postop Eval 1 completed: Yes Anesthesia Postop Eval I Summary Anesthesia Postop Eval I Summary: Anesthesia Postop Eval I: Assessment Summary Airway patent Yes 11/26/24 12:40 [email or web address] [email or web address] Spontaneous unlabored Yes 11/26/24 12:40 [email or web address] [email or web address] respirations Mental status Awake,Calm 11/26/24 12:40 [email or web address] [email or web address] nausea No 11/26/24 12:40 [email or web address] Vomiting No 11/26/24 12:40 [email or web address] [email or web address] Anesthesia Postop Eval I: Fluid Summary Crystalloid volume administer 1,800 11/26/24 12:40 [email or web address] [email or web address] (ml) Colloids volume administered ( ml) Blood Product volume administered (ml) Total IV fluid infused 1,800 11/26/24 12:40 [email or web address] Anesthesia Postop Eval I: Summary Notes Anesthesia Complication No 11/26/24 12:40 [email or web address] Anesthesia Complication Comment: Post-operative progress note Anesthesia: Postop Eval II Evaluation Mental status: Awake Pain Level: 0 nausea: No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 Anaphylaxis Rabbit Adverse Reaction (Severe, Verified 11/08/24 15:06) NEEDS FOLLOW-UP sulfamethoxazole (From Bactrim) Adverse Reaction (Severe, Verified 11/08/24 15:06) Skin rashes blisters trimethoprim (From Bactrim) Adverse Reaction (Severe, Verified 11/08/24 15:06) Skin rashes blisters codeine Adverse Reaction (Verified 11/08/24 15:06) Other Environmental Allergies: Uncoded Adverse Reaction (Verified 11/08/24 15:06) NEEDS FOLLOW-UP erythromycin base Adverse Reaction (Verified 11/08/24 15:06) Upset Stomach milk (dairy) Adverse Reaction (Verified 11/08/24 15:06) Upset Stomach morphine Adverse Reaction (Verified 11/08/24 15:06) Nausea Medications ???Medication ???Instructions ???Recorded ???Confirmed ???Type fluticasone 500 mcg-salmeterol 50 1 puff inhalation BID shortness o f 01/23/15 10/31/24 History mcg/dose blistr powdr for breath inhalation (Advair Diskus) albuterol sulfate 90 mcg/actuation 1 - 2 puff inhalation Q4H PRN 10/31/24 History aerosol inhaler (ProAir HFA) Asthma montelukast 10 mg tablet 10 mg PO QHS allergies 04/15/15 History amlodipine 10 mg tablet 10 mg PO DAILY blood pressure 10/0 /15 10/31/24 History atorvastatin 20 mg tablet 20 mg PO QHS cholesterol 09/23/22 10/31/24 History citalopram 40 mg tablet 30 mg PO QHS sleep 09/23/22 History empagliflozin 10 mg tablet 10 mg PO DAILY diabetes 09/23/22 0 10/31/24 History (Jardiance) hydrochlorothiazide 12.5 mg tablet 12.5 mg PO DAILY blood pressure 09/23/22 10/31/24 History leflunomide 20 mg tablet 20 mg PO DAILY inflammation 10/31/24 History levetiracetam 750 mg 750 mg PO QHS seizures 09/23/22 History tablet,extended release 24 hr losartan 100 mg tablet 100 mg PO QHS blood pressure 09/2311/08/24 History metformin 500 mg tablet 500 mg PO DAILY diabetes 09/23/22 11/08/24 History ondansetron HCl 4 mg tablet 4 mg PO Q8H PRN Nausea 09/23/22 History potassium chloride 20 mEq 20 meq PO DAILY potassium 09/23/22 11/08/24 History tablet, (more content not included)... [facility] CNOVon 10-24-2024 [facility] Office Visit (PULMWS ) RAJWINDER WLYIE ([id number]) 1950 F Date Time Provider Department 10/24/24 11:30 AM ANALIA RIVERA PULMWS During your visit today, we recorded the following information about you: Analia Rivera PA-C 10/25/2024 8:08 AM Signed The appointment was cancelled for this patient. Analia Rivera PA-C Allergies As of Date: 10/24/2024 Noted Allergy Reaction BACTRIM (SULFAMETHOXAZOLE-TRIMETH*1 09/17/2016 4 - Hives ERYTHROMYCIN 12/21/2011 8 - GI Upset 11 - Vomiting NUT - UNSPECIFIED 08/08/2012 10 - Anaphylaxis Comments: Tree Nuts. Anaphylaxis. NATURAL OATMEAL (DIMETHICONE) 04/29/2023 6 - Diarrhea PINEAPPLE 02/25/2020 14 - Other: See Comments Comments: Causes mouth to feel razors Date Reviewed: 10/23/2024 Reviewed by: Celia Jenkins LPN - Fully Assessed Reason for Visit: Appointment Cancelled [1023] Primary Visit Diagnosis:APPOINTMENT CANCELLED Prescriptions as of 10/25/2024 - budesonide-formoterol (SYMBICORT) 160-4.5 mcg/actuation inhaler Inhale 2 Puffs as instructed two times a day. - MOUNJARO 5 mg/0.5 mL pen injector Inject 5 mg subcutaneously one time a week. - traMADol (ULTRAM) 50 mg tablet Take 50 mg by mouth every 6 hours as needed. - metFORMIN ER (GLUCOPHAGE XR) 500 mg 24 hr tablet Take 500 mg by mouth daily with breakfast. - furosemide (LASIX) 40 mg tablet Take 40 mg by mouth as needed. - cetirizine (ZYRTEC) 10 mg tablet Take 10 mg by mouth once daily. - calcium carbonate 600 mg-cholecalciferol 200 units 600 mg-5 mcg (200 unit) tab 1 tablet once daily. - aspirin, enteric coated (ASPIRIN, ENTERIC COATED) 81 mg EC tablet Take 81 mg by mouth once daily. - pregabalin (LYRICA) 75 mg capsule Take 1 capsule by mouth two times a day for 90 days. - levETIRAcetam ER (KEPPRA XR) 750 mg 24 hr tablet Take 1 tablet by mouth once daily. - montelukast (SINGULAIR) 10 mg tablet TAKE 1 TABLET DAILY AT BEDTIME - Atomoxetine 80 mg capsule once daily. - cevimeline (EVOXAC) 30 mg capsule three times a day. - TRULICITY 1.5 mg/0.5 mL pen injector one time a week. - Etanercept (ENBREL SURECLICK) 50 mg/mL (1 mL) one time a week. - glipiZIDE (GLUCOTROL XL) 5 mg 24 hr tablet once daily. - meclizine (ANTIVERT) 25 mg tab two times a day. - metoprolol tartrate, short acting, (LOPRESSOR) 25 mg tablet Take 25 mg by mouth two times a day. - ondansetron (ZOFRAN) 4 mg tablet as needed for nausea/vomiting. - fluticasone-salmeterol (ADVAIR DISKUS) 500-50 mcg/dose dsdv Inhale 1 Puff as instructed twice daily. - guaiFENesin (MUCINEX) 600 mg 12 hr tablet Take 1 tablet by mouth twice daily. - Mucus Clearing Device jeannine Provide 1 mucus clearing device. - albuterol (PROVENTIL) 2.5 mg /3 mL (0.083 %) nebulizer solution USE 3 ML VIA NEBULIZER EVERY 6 HOURS NEED OVER 5-15 MINUTES FOR WHEEZING AND SHORTNESS OF BREATH - albuterol HFA (PROAIR HFA) 90 mcg/actuation inhaler Inhale 2 Puffs as instructed every 4 hours as needed for wheezing/shortness of breath. - ipratropium (ATROVENT) 0.02 % nebulizer solution Use 2.5 mL via nebulizer four times daily as needed for wheezing/shortness of breath. OVER 5-15 MINUTES FOR WHEEZING OR SHORTNESS OF BREATH - JARDIANCE 10 mg tablet Take 10 mg by mouth once daily. - CPAP In-line filter - [employer] Device. Lifetime supplies. - CPAP Please set at 10-20 cmH2O with humidity with download to us in 4 weeks. Also please provide mask fitting (dreamwear under the nose nasal mask). - potassium chloride 20 mEq TbER Take 1 tablet by mouth once daily. - atorvastatin (LIPITOR) 20 mg tablet Take 20 mg by mouth once daily. - leflunomide (ARAVA) 20 mg tablet Take 20 mg by mouth once daily. - Nebulizer Accessories kit Provide nebulizer kit. - Nebulizer and Compressor For Neb Provide nebulizer. - CPAP Please eval pts machine as not providing downloads. If you can get download please send us copy. Also please provided mask fitting as pts mask leaking. - ipratropium (ATROVENT) 0.02 % nebulizer solution Use 2.5 mL via nebulizer one time only for 1 dose. OVER 5-15 MINUTES FOR WHEEZING OR SHORTNESS OF BREATH - predniSONE (DELTASONE) 10 mg tablet 2 DAILY FOR 1 WEEK THEN 1 TAB DAILY FOR 1 WEEK. KEEP REMAINDER ON HAND FOR FUTURE FLARES - venlafaxine ER (EFFEXOR XR) 150 mg 24 hr capsule 300 mg once daily. - fluticasone (FLONASE) 50 mcg/actuation nasal spray Use 1 [place] in each nostril once daily. - losartan (COZAAR) 50 mg tablet Take 1 tablet by mouth once daily. - citalopram (CELEXA) 20 mg tablet Take 30 mg by mouth once daily. - QUEtiapine (SEROQUEL) 100 mg tablet Take 200 mg by mouth daily at bedtime. - amLODIPine 5 mg ORAL tablet Take 5 mg by mouth once daily. - hydrochlorothiazide 25 mg ORAL tablet Take 12.5 mg by mouth once daily. - ALPRAZolam (XANAX) 0.5 mg tablet Take 0.5 mg by mouth at bed (more content not included)... Normal [facility] Serum or plasma uric acid me asurement (mass/volume)Ordered By: Davion Peoples on 10-09-2024 Urate [Mass/Vol] 7.4 mg/dL High 2.6-6.0 [facility] Comment on above: The drugs N-Acetylcy steine and Metamizole may falsely depress this assay. Uric Acidon 10-09-2024 URIC 7.4 mg/dL High 2.6-6.0 [facility] Comment on above: Result Comment: The drugs N-Acetylcysteine and Metamizole may falsely depress this assay. Performed By: #### L 501.080 #### [facility] [address] [place], [address] CBC W/Diff, Automatedon 12-0 Absolute Lymph 1.90 X10 3/uL Normal 0.83-4.51 [facility] Comment on above: Order Comment: Order Date: 07/25/24Order Info: [id number] - CBCD Performed By: #### L 501.080 #### [facility] [address] [place], [address] Absolute Neut 3.5 X10 3/uL Normal 2.0-7.7 [facility] Comment on above: Order Comment: Order Date: 07/25/24Order Info: [id number] - CBCD Performed By: #### L 501.080 #### [facility] [address] [place], [address] Basophils/100 WBC (Bld) 0.9 % Normal 0-1 [facility] Comment on above: Order Comment: Order Date: 07/25/24Order Info: [id number] - CBCD Performed By: #### L 501.080 #### [facility] [address] [place], [address] Eosinophils/100 WBC (Bld) 5.1 % High 0-5 [facility] Comment on above: Order Comment: Order Date: 07/25/24Order Info: [id number] - CBCD Performed By: #### L 501.080 #### [facility] [address] [place], [address] Erythrocyte distribution width (RBC) [Ratio] 16.5 % High 11.6-14.6 [facility] Comment on above: Order Comment: Order Date: 07/25/24Order Info: [id number] - CBCD Performed By: #### L 501.080 #### [facility] [address] [place], [address] Hematocrit (Bld) [Volume fraction] 42.1 % Normal 37-47 [facility] Comment on above: Order Comment: Order Date: 07/25/24Order Info: [id number] - CBCD Performed By: #### L 501.080 #### [facility] [address] [place], [address] Hemoglobin (Bld) [Mass/Vol] 12.8 g/dL Normal 12.0-15.0 [facility] Comment on above: Order Comment: Order Date: 07/25/24Order Info: [id number] - CBCD Performed By: #### L 501.080 #### [facility] [address] [place], [address] IG% 1.400 High 0.0-0.9 [facility] Comment on above: Order Comment: Order Date: 07/25/24Order Info: [id number] - CBCD Result Comment: IG% - Immature Granulocytes (promyelocytes, myelocytes and metamyelocytes) > 1% indicates that a LEFT SHIFT is Present. Performed By: #### L 501.080 #### [facility] [address] [place], [address] Lymphocytes/100 WBC (Bld) 29.3 % Normal 19-41 [facility] Comment on above: Order Comment: Order Date: 07/25/24Order Info: 183- - CBCD Performed By: #### L 501.080 #### [facility] [address] [place], [address] MCH (RBC) [Entitic mass] 25.5 pg Low 27.0-32.0 [facility] Comment on above: Order Comment: Order Date: 07/25/24Order Info: [id number] - CBCD Performed By: #### L 501.080 #### [facility] [address] [place], [address] MCHC (RBC) [Mass/Vol] 30.4 g/dL Low 32-36 [facility] Comment on above: Order Comment: Order Date: 07/25/24Order Info: 183- - CBCD Performed By: #### L 501.080 #### [facility] [address] [place], [address] MCV (RBC) [Entitic vol] 84.0 fL Normal 81-99 [facility] Comment on above: Order Comment: Order Date: 07/25/24Order Info: 183- - CBCD Performed By: #### L 501.080 #### [facility] [address] [place], [address] Monocytes/100 WBC (Bld) 10.0 % Normal 0-10 [facility] Comment on above: Order Comment: Order Date: 07/25/24Order Info: 183- - CBCD Performed By: #### L 501.080 #### [facility] [address] [place], [address] Neutrophils/100 WBC (Bld) 53.3 % Normal 47-70 [facility] Comment on above: Order Comment: Order Date: 07/25/24Order Info: 018- - CBCD Performed By: #### L 501.080 #### [facility] [address] [place], [address] Nucleated RBC (Bld) [#/Vol] 0 10*3/uL Normal 0-5 [facility] Comment on above: Order Comment: Order Date: 07/25/24Order Info: 183- - CBCD Performed By: #### L 501.080 #### [facility] [address] [place], [address] Platelet mean volume (Bld) [Entitic vol] 10.6 fL Normal 6.2-12.0 [facility] Comment on above: Order Comment: Order Date: 07/25/24Order Info: 018- - CBCD Performed By: #### L 501.080 #### [facility] [address] [place], [address] Platelets (Bld) [#/Vol] 235 10*3/uL Normal 150-450 [facility] Comment on above: Order Comment: Order Date: 07/25/24Order Info: 018- - CBCD Performed By: #### L 501.080 #### [facility] [address] [place], [address] RBC (Bld) [#/Vol] 5.01 10*6/uL Normal 4.2-5.4 [facility] Comment on above: Order Comment: Order Date: 07/25/24Order Info: 018- - CBCD Performed By: #### L 501.080 #### [facility] [address] [place], [address] RDW SD 50.1 fl High 35.1-43.9 [facility] Comment on above: Order Comment: Order Date: 07/25/24Order Info: 0184- - CBCD Performed By: #### L 501.080 #### [facility] [address] [place], [address] WBC (Bld) [#/Vol] 6.5 10*3/uL Normal 4.4-11.0 [facility] Comment on above: Order Comment: Order Date: 07/25/24Order Info: 0184- - CBCD Performed By: #### L 501.080 #### [facility] [address] [place], [address] Comprehensive Metabolic Prof ilon 07-25-2024 Albumin [Mass/Vol] 3.6 g/dL Normal 3.2-5.0 [facility] Comment on above: Order Comment: Order Date: 07/25/24Order Info: [id number] - CMPOrder Info: [id number] - LIPIDOrder Info: [id number] - TSH Performed By: #### L 501.080 #### [facility] [address] [place], [address] Albumin/Globulin [Mass ratio] 1.0 {ratio} Normal 0.9-2.4 [facility] Comment on above: Order Comment: Order Date: 07/25/24Order Info: [id number] - CMPOrder Info: [id number] - LIPIDOrder Info: [id number] - TSH Performed By: #### L 501.080 #### [facility] [address] [place], [address] ALK P 95 U/L Normal 45-117 [facility] Comment on above: Order Comment: Order Date: 07/25/24Order Info: [id number] - CMPOrder Info: [id number] - LIPIDOrder Info: [id number] - TSH Performed By: #### L 501.080 #### [facility] [address] [place], [address] ALT [Catalytic activity/Vol] 28 U/L Normal 13-56 [facility] Comment on above: Order Comment: Order Date: 07/25/24Order Info: [id number] - CMPOrder Info: [id number] - LIPIDOrder Info: [id number] - TSH Performed By: #### L 501.080 #### [facility] [address] [place], [address] AST [Catalytic activity/Vol] 17 U/L Normal 15-37 [facility] Comment on above: Order Comment: Order Date: 07/25/24Order Info: 86-1 - CMPOrder Info: [id number] - LIPIDOrder Info: [id number] - TSH Performed By: #### L 501.080 #### [facility] [address] [place], [address] Bilirubin [Mass/Vol] 0.50 mg/dL Normal 0.20-1.00 [facility] Comment on above: Order Comment: Order Date: 07/25/24Order Info: 86-1 - CMPOrder Info: [id number] - LIPIDOrder Info: [id number] - TSH Result Comment: For patients on eltrombopag therapy, use of Dimension [place] TBIL is not recommended. Performed By: #### L 501.080 #### [facility] [address] [place], [address] BUN/CRE 24.2 RATIO High 10-20 [facility] Comment on above: Order Comment: Order Date: 07/25/24Order Info: 86-1 - CMPOrder Info: [id number] - LIPIDOrder Info: [id number] - TSH Performed By: #### L 501.080 #### [facility] [address] [place], [address] CA,Total 9.0 mg/dL Normal 8.5-10.1 [facility] Comment on above: Order Comment: Order Date: 07/25/24Order Info: [id number] - CMPOrder Info: [id number] - LIPIDOrder Info: [id number] - TSH Performed By: #### L 501.080 #### [facility] [address] [place], [address] Chloride [Moles/Vol] 106 mmol/L Normal 98-107 [facility] Comment on above: Order Comment: Order Date: 07/25/24Order Info: 86-1 - CMPOrder Info: [id number] - LIPIDOrder Info: [id number] - TSH Performed By: #### L 501.080 #### [facility] [address] [place], [address] CO2 [Moles/Vol] 21.0 mmol/L Normal 21.0-32.0 [facility] Comment on above: Order Comment: Order Date: 07/25/24Order Info: 86-1 - CMPOrder Info: [id number] - LIPIDOrder Info: [id number] - TSH Performed By: #### L 501.080 #### [facility] [address] [place], [address] Creatinine [Mass/Vol] 1.24 mg/dL High 0.55-1.02 [facility] Comment on above: Order Comment: Order Date: 07/25/24Order Info: 86-1 - CMPOrder Info: [id number] - LIPIDOrder Info: [id number] - TSH Result Comment: The validity of the calculated GFR GFRAA in patients over 70 years has not been determined. Clinical correlation is essential. Performed By: #### L 501.080 #### [facility] [address] [place], [address] EST GFR - AA 55 mL/min Low >60 [facility] Comment on above: Order Comment: Order Date: 07/25/24Order Info: [id number] - CMPOrder Info: [id number] - LIPIDOrder Info: [id number] - TSH Result Comment: Afri can [place] GFR Calc Performed By: #### L 501.080 #### [facility] [address] [place], [place], [address] GAP 9 Normal 5-15 [facility] Comment on above: Order Comment: Order Date: 07/25/24Order Info: [id number]- - CMPOrder Info: [id number] - LIPIDOrder Info: [id number] - TSH Performed By: #### L 501.080 #### [facility] [address] [place], [address] GFR/1.73 sq M.predicted among non-blacks MDRD (S/P/Bld) [Vol rate/Area] 45 mL/min/{1.73_m2} Low >60 [facility] Comment on above: Order Comment: Order Date: 07/25/24Order Info: [id number]- - CMPOrder Info: [id number] - LIPIDOrder Info: [id number] - TSH Result Comment: Non- GFR Calc Performed By: #### L 501.080 #### [facility] [address] [place], [address] Globulin (S) [Mass/Vol] 3.7 g/dL Normal 2.2-4.2 [facility] Comment on above: Order Comment: Order Date: 07/25/24Order Info: 785- - CMPOrder Info: [id number] - LIPIDOrder Info: [id number] - TSH Performed By: #### L 501.080 #### [facility] [address] [place], [address] Glucose [Mass/Vol] 108 mg/dL High 74-106 [facility] Comment on above: Order Comment: Order Date: 07/25/24Order Info: 785- - CMPOrder Info: [id number] - LIPIDOrder Info: [id number] - TSH Result Comment: Fast ing Glucose result from 100 to 125 mg/dL suggests IMPAIRED HOMEOSTASIS per A.D.A. criteria. Performed By: #### L 501.080 #### [facility] [address] [place], [address] Potassium [Moles/Vol] 4.5 mmol/L Normal 3.5-5.1 [facility] Comment on above: Order Comment: Order Date: 07/25/24Order Info: 86-1 - CMPOrder Info: [id number] - LIPIDOrder Info: [id number] - TSH Performed By: #### L 501.080 #### [facility] [address] [place], [address] Sodium [Moles/Vol] 136 mmol/L Normal 136-145 [facility] Comment on above: Order Comment: Order Date: 07/25/24Order Info: 86-1 - CMPOrder Info: [id number] - LIPIDOrder Info: 6-3 - TSH Performed By: #### L 501.080 #### [facility] [address] [place], [address] T PROT 7.3 g/dL Normal 6.4-8.2 [facility] Comment on above: Order Comment: Order Date: 07/25/24Order Info: [id number] - CMPOrder Info: [id number] - LIPIDOrder Info: [id number] - TSH Performed By: #### L 501.080 #### [facility] [address] [place], [address] Urea nitrogen [Mass/Vol] 30 mg/dL High 7-18 [facility] Comment on above: Order Comment: Order Date: 07/25/24Order Info: 86-1 - CMPOrder Info: [id number] - LIPIDOrder Info: [id number] - TSH Performed By: #### L 501.080 #### [facility] [address] [place], [address] Lipid Profileon 07-25-2024 Cholesterol [Mass/Vol] 145 mg/dL Normal 200 [facility] Comment on above: Order Comment: Order Date: 07/25/24Order Info: 86-1 - CMPOrder Info: [id number] - LIPIDOrder Info: [id number] - TSH Result Comment: <200 mg/dL Desirable 200-240 mg/dL Borderline >240 mg/dL High Risk Performed By: #### L 501.080 #### [facility] [address] [place], [address] Cholesterol in HDL [Mass/Vol] 56 mg/dL Normal [facility] Comment on above: Order Comment: Order Date: 07/25/24Order Info: [id number] - CMPOrder Info: [id number] - LIPIDOrder Info: [id number] - TSH Result Comment: The drugs N-Acetylcysteine and Metamizole may falsely depress this assay. Reference Range HDL <40 mg/dL Low HDL Cholesterol HDL >or= 60 mg/dL High HDL Cholesterol Performed By: #### L 501.080 #### [facility] [address] [place], [address] Cholesterol in LDL [Mass/Vol] 60 mg/dL Normal 0-130 [facility] Comment on above: Order Comment: Order Date: 07/25/24Order Info: 86-1 - CMPOrder Info: [id number] - LIPIDOrder Info: [id number] - TSH Performed By: #### L 501.080 #### [facility] [address] [place], [address] Cholesterol in VLDL [Mass/Vol] 29 mg/dL Normal 5-40 [facility] Comment on above: Order Comment: Order Date: 07/25/24Order Info: 86-1 - CMPOrder Info: [id number] - LIPIDOrder Info: [id number] - TSH Performed By: #### L 501.080 #### [facility] [address] [place], [address] Triglyceride [Mass/Vol] 147 mg/dL Normal [facility] Comment on above: Order Comment: Order Date: 07/25/24Order Info: [id number] - CMPOrder Info: [id number] - LIPIDOrder Info: [id number] - TSH Result Comment: The drugs N-Acetylcysteine and Metamizole may falsely depress this assay. Serum Triglycerides Reference Interval Normal <150 mg/dL Borderline high 150 - 199 mg/dL High 200 - 499 mg/dL Very High > or = 500 mg/dL Performed By: #### L 501.080 #### [facility] [address] [place], [address] Thyroid Stim Hormone (TSH)on 07-25-2024 TSH 1.780 uIU/mL Normal 0.358-3.[address] [facility] Comment on above: Order Comment: Order Date: 07/25/24Order Info: [id number] - CMPOrder Info: [id number] - LIPIDOrder Info: [id number] - TSH Performed By: #### L 501.080 #### [facility] [address] [facility] [place], [address] CNPNon 06-25-2024 CNPN Telephone (NEMANDERS) RAJWINDER WYLIE ([id number]) 1950 F Date Time Provider Department 06/25/24 DARIEN GUDINO JR During your visit today, we recorded the following information about you: Liu Esquivel OCCA 06/25/2024 9:54 AM Signed Darien Gudino Jr., MD P tr Neur Shah[facility] Nurse Please send not to PCP. Liu Esquivel OCCA 06/25/2024 9:54 AM Signed Office visit notes faxed to Dr. Peoples's office as requested. MAYCOL Sotomayor Allergies As of Date: 06/25/2024 Noted Allergy Reaction BACTRIM (SULFAMETHOXAZOLE-TRIMETH*1 09/17/2016 4 - Hives ERYTHROMYCIN 12/21/2011 8 - GI Upset 11 - Vomiting NUT - UNSPECIFIED 08/08/2012 10 - Anaphylaxis Comments: Tree Nuts. Anaphylaxis. NATURAL OATMEAL (DIMETHICONE) 04/29/2023 6 - Diarrhea PINEAPPLE 02/25/2020 14 - Other: See Comments Comments: Causes mouth to feel razors Date Reviewed: 06/15/2024 Reviewed by: Liu Esquivel OCCA - Fully Assessed Prescriptions as of 06/25/2024 - levETIRAcetam ER (KEPPRA XR) 750 mg 24 hr tablet Take 1 tablet by mouth once daily. - pregabalin (LYRICA) 75 mg capsule Take 1 capsule by mouth two times a day for 90 days. - montelukast (SINGULAIR) 10 mg tablet TAKE 1 TABLET DAILY AT BEDTIME - Atomoxetine 80 mg capsule once daily. - cevimeline (EVOXAC) 30 mg capsule three times a day. - TRULICITY 1.5 mg/0.5 mL pen injector one time a week. - Etanercept (ENBREL SURECLICK) 50 mg/mL (1 mL) one time a week. - glipiZIDE (GLUCOTROL XL) 5 mg 24 hr tablet once daily. - meclizine (ANTIVERT) 25 mg tab two times a day. - metoprolol tartrate, short acting, (LOPRESSOR) 25 mg tablet once daily. - ondansetron (ZOFRAN) 4 mg tablet as needed for nausea/vomiting. - fluticasone-salmeterol (ADVAIR DISKUS) 500-50 mcg/dose dsdv Inhale 1 Puff as instructed twice daily. - guaiFENesin (MUCINEX) 600 mg 12 hr tablet Take 1 tablet by mouth twice daily. - Mucus Clearing Device jeannine Provide 1 mucus clearing device. - albuterol (PROVENTIL) 2.5 mg /3 mL (0.083 %) nebulizer solution USE 3 ML VIA NEBULIZER EVERY 6 HOURS NEED OVER 5-15 MINUTES FOR WHEEZING AND SHORTNESS OF BREATH - albuterol HFA (PROAIR HFA) 90 mcg/actuation inhaler Inhale 2 Puffs as instructed every 4 hours as needed for wheezing/shortness of breath. - ipratropium (ATROVENT) 0.02 % nebulizer solution Use 2.5 mL via nebulizer four times daily as needed for wheezing/shortness of breath. OVER 5-15 MINUTES FOR WHEEZING OR SHORTNESS OF BREATH - JARDIANCE 10 mg tablet Take 10 mg by mouth once daily. - CPAP In-line filter - Respironics Device. Lifetime supplies. - CPAP Please set at 10-20 cmH2O with humidity with download to us in 4 weeks. Also please provide mask fitting (dreamwear under the nose nasal mask). - potassium chloride 20 mEq TbER Take 1 tablet by mouth once daily. - atorvastatin (LIPITOR) 20 mg tablet Take 20 mg by mouth once daily. - leflunomide (ARAVA) 20 mg tablet Take 20 mg by mouth once daily. - Nebulizer Accessories kit Provide nebulizer kit. - Nebulizer and Compressor For Neb Provide nebulizer. - CPAP Please eval pts machine as not providing downloads. If you can get download please send us copy. Also please provided mask fitting as pts mask leaking. - ipratropium (ATROVENT) 0.02 % nebulizer solution Use 2.5 mL via nebulizer one time only for 1 dose. OVER 5-15 MINUTES FOR WHEEZING OR SHORTNESS OF BREATH - predniSONE (DELTASONE) 10 mg tablet 2 DAILY FOR 1 WEEK THEN 1 TAB DAILY FOR 1 WEEK. KEEP REMAINDER ON HAND FOR FUTURE FLARES - venlafaxine ER (EFFEXOR XR) 150 mg 24 hr capsule 300 mg once daily. - fluticasone (FLONASE) 50 mcg/actuation nasal spray Use 1 Maxton in each nostril once daily. - losartan (COZAAR) 50 mg tablet Take 1 tablet by mouth once daily. - citalopram (CELEXA) 20 mg tablet Take 40 mg by mouth once daily. - QUEtiapine (SEROQUEL) 100 mg tablet Take 200 mg by mouth daily at bedtime. - amLODIPine 5 mg ORAL tablet Take 5 mg by mouth once daily. - hydrochlorothiazide 25 mg ORAL tablet Take 12.5 mg by mouth once daily. - ALPRAZolam (XANAX) 0.5 mg tablet Take 0.5 mg by mouth at bedtime as needed. Problem List As Of Date 06/25/2024 Noted Resolved Asthma [J45.909] 05/16/2013 SANTHOSH (obstructive sleep apnea) [G47.33] 05/16/2013 Obesity [E66.9] 05/16/2013 Hypertension [I10] 05/16/2013 Sinus arrhythmia [I49.8] 05/16/2013 First degree heart block [I44.0] 05/16/2013 Obesity, Class II, BMI 35-39.9 [E66.812] 01/09/2018 Nonintractable episodic headache [R51.9] 01/26/2019 Neuropathy (HCC) [G62.9] 01/26/2019 Vertigo [R42] 01/26/2019 PTSD (post-traumatic stress disorder) [F43.10] 01/26/2019 Bronchitis and pneumonitis due to chemical fume*01/12/2023 Encounter Status:Closed by LIU ESQUIVEL on 06/25/24 [facility] 06-18-2024 [place] Telephone (NEMOWS) RAJWINDER WYLIE ([id number]) 1950 Date Time Provider Department 06/18/24 DARIEN GUDINO JR During your visit today, we recorded the following information about you: Eva Prado LPN 06/18/2024 11:02 AM Signed Patient calling she had appt on 06/15/[address] Gudino was going to send a rx for her Pregabalin 150 mg one capsule twice daily to the pharmacy. She said [facility]'s pharmacy did not have the rx. She said she is not sleeping at night due to pain. Please advise Liu Esquivel OCCA 06/18/2024 11:21 AM Signed TC to [facility] pharmacy who states last filled Lyrica was on 05/27 for 75 mg, 2 capsules BID for a quantity of 20. Patient will need a refill. Pended for provider if agreeable. MAYCOL Sotomayor William J Jr., MD 06/19/2024 10:53 AM Signed Will send refill today with lab results now back. Thank you. MD David Funk Samaria, LPN 06/19/2024 12:25 PM Signed Patient notified medication was sent to pharmacy Allergies As of Date: 06/18/2024 Noted Allergy Reaction BACTRIM (SULFAMETHOXAZOLE-TRIMETH*1 09/17/2016 4 - Hives ERYTHROMYCIN 12/21/2011 8 - GI Upset 11 - Vomiting NUT - UNSPECIFIED 08/08/2012 10 - Anaphylaxis Comments: Tree Nuts. Anaphylaxis. NATURAL OATMEAL (DIMETHICONE) 04/29/2023 6 - Diarrhea PINEAPPLE 02/25/2020 14 - Other: See Comments Comments: Causes mouth to feel razors Date Reviewed: 06/15/2024 Reviewed by: Liu Esquivel OCCA - Fully Assessed Reason for Visit: Patient Question [7477] Visit Diagnoses:Nonintractable episodic headache, unspecified headache type [R51.9] Neuropathy [G62.9] RLS (restless legs syndrome) [G25.81] SANTHOSH (obstructive sleep apnea) [G47.33] Sciatica of right side [M54.31] Prescriptions as of 06/25/2024 - levETIRAcetam ER (KEPPRA XR) 750 mg 24 hr tablet Take 1 tablet by mouth once daily. - pregabalin (LYRICA) 75 mg capsule Take 1 capsule by mouth two times a day for 90 days. - montelukast (SINGULAIR) 10 mg tablet TAKE 1 TABLET DAILY AT BEDTIME - Atomoxetine 80 mg capsule once daily. - cevimeline (EVOXAC) 30 mg capsule three times a day. - TRULICITY 1.5 mg/0.5 mL pen injector one time a week. - Etanercept (ENBREL SURECLICK) 50 mg/mL (1 mL) one time a week. - glipiZIDE (GLUCOTROL XL) 5 mg 24 hr tablet once daily. - meclizine (ANTIVERT) 25 mg tab two times a day. - metoprolol tartrate, short acting, (LOPRESSOR) 25 mg tablet once daily. - ondansetron (ZOFRAN) 4 mg tablet as needed for nausea/vomiting. - fluticasone-salmeterol (ADVAIR DISKUS) 500-50 mcg/dose dsdv Inhale 1 Puff as instructed twice daily. - guaiFENesin (MUCINEX) 600 mg 12 hr tablet Take 1 tablet by mouth twice daily. - Mucus Clearing Device jeannine Provide 1 mucus clearing device. - albuterol (PROVENTIL) 2.5 mg /3 mL (0.083 %) nebulizer solution USE 3 ML VIA NEBULIZER EVERY 6 HOURS NEED OVER 5-15 MINUTES FOR WHEEZING AND SHORTNESS OF BREATH - albuterol HFA (PROAIR HFA) 90 mcg/actuation inhaler Inhale 2 Puffs as instructed every 4 hours as needed for wheezing/shortness of breath. - ipratropium (ATROVENT) 0.02 % nebulizer solution Use 2.5 mL via nebulizer four times daily as needed for wheezing/shortness of breath. OVER 5-15 MINUTES FOR WHEEZING OR SHORTNESS OF BREATH - JARDIANCE 10 mg tablet Take 10 mg by mouth once daily. - CPAP In-line filter - Respironics Device. Lifetime supplies. - CPAP Please set at 10-20 cmH2O with humidity with download to us in 4 weeks. Also please provide mask fitting (dreamwear under the nose nasal mask). - potassium chloride 20 mEq TbER Take 1 tablet by mouth once daily. - atorvastatin (LIPITOR) 20 mg tablet Take 20 mg by mouth once daily. - leflunomide (ARAVA) 20 mg tablet Take 20 mg by mouth once daily. - Nebulizer Accessories kit Provide nebulizer kit. - Nebulizer and Compressor For Neb Provide nebulizer. - CPAP Please eval pts machine as not providing downloads. If you can get download please send us copy. Also please provided mask fitting as pts mask leaking. - ipratropium (ATROVENT) 0.02 % nebulizer solution Use 2.5 mL via nebulizer one time only for 1 dose. OVER 5-15 MINUTES FOR WHEEZING OR SHORTNESS OF BREATH - predniSONE (DELTASONE) 10 mg tablet 2 DAILY FOR 1 WEEK THEN 1 TAB DAILY FOR 1 WEEK. KEEP REMAINDER ON HAND FOR FUTURE FLARES - venlafaxine ER (EFFEXOR XR) 150 mg 24 hr capsule 300 mg once daily. - fluticasone (FLONASE) 50 mcg/actuation nasal spray Use 1 Maxton in each nostril once daily. - losartan (COZAAR) 50 mg tablet Take 1 tablet by mouth once daily. - citalopram (CELEXA) 20 mg tablet Take 40 mg by mouth once daily. - QUEtiapine (SEROQUEL) 100 mg tablet Take 200 mg by mouth daily at bedtime. - amLODIPine 5 mg ORAL tablet Take 5 mg by mouth once daily. - hydrochlorothiazide (more content not included)... Normal [facility] CNOVon 06-15-2024 CNOV Office Visit (KWASI ) RAJWINDER WYLIE ([id number]) 1950 F Date Time Provider Department 06/15/24 10:20 AM DARIEN GUDINO JR During your visit today, we recorded the following information about you: Pulse Respiration Blood pressure Weight 66/minute 18/minute 129/68 86.6 kg Darien Gudino Jr., MD 2024 9:50 PM Signed ESTABLISHED PATIENT VISIT CHIEF COMPLAINT: Follow Up HISTORY OF PRESENT ILLNESS: Rajwinder Wylie is a 73 year old female, BMI 31.3 kg/m2 with a PMH significant for and per last office visit of 09/19/23: 1. Degeneration of lumbar or lumbosacral intervertebral disc - ICD9: 722.52, ICD10: M51.37 (primary diagnosis) - CONSULT TO PAIN MGT Patient missed appt with Dr. Valencia secondary to virus. Will place a new consult. No significant central canal stenosis but reports pain in lumbar spine (non radiating) limiting her ability to function on many days. Will continue Lyrica which is being used for other disorders as well. 2. Obstructive sleep apnea (adult) (pediatric) - ICD9: 327.23, ICD10: G47.33 PAP device note working. Order placed to DME to either repair or if necessary get pt new PAP equipment. Prior to recent virus and infection, pt had been compliant with control of AHI on current settings. Advised pt to also reach out to DME. Advised pt not to drive or operate heavy machinery if sleepy. 3. Nonintractable episodic headache, unspecified headache type - ICD9: 784.0, ICD10: R51.9 Asx on the following (as dosed above). - LEVETIRACETAM ER 750 MG TABLET,EXTENDED RELEASE 24 HR (QDaily) (Note pt does not feel Keppra is exacerbating anxiety) - PREGABALIN 150 MG CAPSULE (BID) 4. Neuropathy - ICD9: 355.9, ICD10: G62.9 Asx on the following (as dosed above). - LEVETIRACETAM ER 750 MG TABLET,EXTENDED RELEASE 24 HR - PREGABALIN 150 MG CAPSULE 5. RLS (restless legs syndrome) - ICD9: 333.94, ICD10: G25.81 Asx on the following (as dosed above). - LEVETIRACETAM ER 750 MG TABLET,EXTENDED RELEASE 24 HR - PREGABALIN 150 MG CAPSULE Pt has not followed up since. During interim, episode of loc in shower resulting in hospital stay. [place] due to sepsis but reported possible seizure as well with pt reportedly biting off tongue. We do not have records for review. Never started on seizure medication at that time but was already on Lyrica and Keppra for neuropathy. More recent fall 2 weeks ago for which only evaluated in ER. States not taking Lyrica, despite our Rx'ing and confirm received by pharmacy. Last filled 05/27/24 per PDMP. Pt also appearing to be on higher dose of Xanax now. No longer using PAP as states when in rehab, her brother threw it away. Regarding events early this year, states she was in septic coma for 4 days and has no memory of anything. Was then in [facility]. States had to learn how to walk again. Out of [place] the first of February. States 3 days ago found a box that someone put in the trash that has her PAP in it. Thus, still has device. States when in [facility] had no PAP device. When asked about meds, states Lyrica was decreased to 75mg BID, but unknown if due to renal issues. States on Xanax taking 1mg at night. Has Rx for 90 tabs monthly but states only taking 2 at night. States psychiatry tried to change to Remeron but keeping pt awake. Per ER note from 10/12/23 that is when pt was admitted to hospital, indicates pt with fall, states hit her head, pain in r should and keen. Did not think loc. Did bite her tongue when falling. Dx YOON, fx of proximal R humerus, hypernatremia, leukocytosis, Rhabdo, fall. Pt states that documentation not correct. Pt was encephalopathic at time of hospital stay, but no mention of coma. Pt with additional fall 2 weeks ago I shower - slipped and fell. Pt Lyrica dose lowered to 75mg BID, but pt reports taking 150mg BID. Do not have recent Cr level. While ER report inidcated hypernatremia, the hospitalist note reports hypoatremia. Pt still has PAP and should still function per pt. Still feels Keppra helps neuropathy and RLS. States is a night owl and will be up until 3AM. States RLS starts up late at night when resting in recliner and once in bed. Neuropathy present all day. Note pt also on Venlafaxine in AM (should also help neuropathy). For rheum d/o starting biologic infusion next week. Limited function of RUE as needing shoulder surgery. States when hit head gets headaches, but none of late. Headache always on left side. Pt reporting occasional dizziness with weather change. No definite vertigo. Pt states upset with ENT - unclear why. Reports that we told her that there was something wrong with her ear canal on brain imaging but cannot find record of this. Workup in multiple neuro notes indicates pt following with ENT for Meniere's evaluation. REVIEW OF SYSTEMS GENERAL:No weight loss, malaise or fevers. (more content not included)... Normal [facility] Comprehensive metabolic 2000 panelon 06-15-2024 Albumin [Mass/Vol] 4.1 g/dL 3.9 - 4.9 g/dL [facility] ALP [Catalytic activity/Vol] 103 U/L 34 - 123 U/L [facility] ALT [Catalytic activity/Vol] 17 U/L 7 - 38 U/L [facility] Anion gap [Moles/Vol] 13 mmol/L 8 - 15 mmol/L [facility] AST [Catalytic activity/Vol] 17 U/L 13 - 35 U/L [facility] Bilirubin [Mass/Vol] 0.4 mg/dL 0.2 - 1 .3 mg/dL [facility] Calcium [Mass/Vol] 9.4 mg/dL 8.5 - 10. 2 mg/dL [facility] Chloride [Moles/Vol] 103 mmol/L 98 - 10 7 mmol/L [facility] CO2 [Moles/Vol] 22 mmol/L 22 - 30 mmol/L [facility] Creatinine [Mass/Vol] 1.16 mg/dL High 0.58 - 0.96 mg/dL [facility] GFR/1.73 sq M.predicted among non-blacks MDRD (S/P/Bld) [Vol rate/Area] 50 mL/min/{1.73_m2} Low - PINF [facility] Comment on above: Estimated Glomerular Filtration Rate (eGFR) is calculated using the 2020 CKD-EPI creatinine equation. This equation utilizes serum creatinine, sex, and age as parameters. The creatinine assay has traceable calibration to isotope dilution-mass spectrometry. Refer to KDIGO guidelines for clinical interpretation. In patients with unstable renal function, e.g. those with acute kidney injury, the eGFR may not accurately reflect actual GFR. Glucose [Mass/Vol] 145 mg/dL High 74 - 99 mg/dL [facility] Comment on above: The [place] Diab[employer] s Association (ADA) provides guidance for cutoff values for fasting glucose and random glucose. The ADA defines fasting as no caloric intake for at least 8 hours. Fasting plasma glucose results between 100 to 125 mg/dL indicate increased risk for diabetes (prediabetes). Fasting plasma glucose results greater than or equal to 126 mg/dL meet the criteria for diagnosis of diabetes. In the absence of unequivocal hyperglycemia, results should be confirmed by repeat testing. In a patient with classic symptoms of hyperglycemia or hyperglycemic crisis, random plasma glucose results greater than or equal to 200 mg/dL meet the criteria for diagnosis of diabetes. Reference: Standards of Medical Care in Diabetes 2016, [place] [employer]. Diabetes Care. 2016.39(Suppl 1). Interpretation and review of laboratory results Abnormal [facility] Potassium [Moles/Vol] 4.4 mmol/L 3.7 - 5.1 mmol/L [facility] Protein [Mass/Vol] 7.1 g/dL 6.3 - 8.0 g/dL [facility] Sodium [Moles/Vol] 138 mmol/L 136 - 144 mmol/L [facility] Urea nitrogen [Mass/Vol] 31 mg/dL High 7 - 21 mg/dL [facility] Albumin [Mass/Vol] 4.1 g/dL Normal 3.9-4.9 [facility] Comment on above: Order Comment: Speci men Type: BLOOD SPECIMENOrdering Facility: [facility] Address: [address] [id number] Performed By: #### 2 4323-8 ####[facility] LABCLIA [id number] [place] [address] [place] ALP [Catalytic activity/Vol] 103 U/L Normal 34-123 [facility] Comment on above: Order Comment: Speci men Type: BLOOD SPECIMENOrdering Facility: [facility] Address: [address] [place] [address] Performed By: #### 2 4323-8 ####[facility] LABCLIA [id number] [place] [address] [place] ALT [Catalytic activity/Vol] 17 U/L Normal 7-38 [facility] Comment on above: Order Comment: Speci men Type: BLOOD SPECIMENOrdering Facility: [facility] Address: [address] [place] [address] Performed By: #### 2 4323-8 ####[facility] LABCLIA [id number] [place] [address] [place] Anion gap [Moles/Vol] 13 mmol/L Normal 8-15 [facility] Comment on above: Order Comment: Speci men Type: BLOOD SPECIMENOrdering Facility: [facility] Address: [address] [id number] Performed By: #### 2 4323-8 ####[facility] LABCLIA [id number] [place] [id number] [place] AST [Catalytic activity/Vol] 17 U/L Normal 13-35 [facility] Comment on above: Order Comment: Speci men Type: BLOOD SPECIMENOrdering Facility: [facility] Address: [address] [place], [place] [id number] Performed By: #### 2 4323-8 ####[facility] LABCLIA [id number] [place] [address] [place] Bilirubin [Mass/Vol] 0.4 mg/dL Normal 0.2-1.3 [facility] Comment on above: Order Comment: Speci men Type: BLOOD SPECIMENOrdering Facility: [facility] Address: [address] [place] [address] Performed By: #### 2 4323-8 ####[facility] LABCLIA [id number] [place] [address] [place] Calcium [Mass/Vol] 9.4 mg/dL Normal 8.5-10.2 [facility] Comment on above: Order Comment: Speci men Type: BLOOD SPECIMENOrdering Facility: [facility] Address: [address] [place] [address] Performed By: #### 2 4323-8 ####[facility] LABCLIA [id number] [place] [address] [place] Chloride [Moles/Vol] 103 mmol/L Normal 98-107 [facility] Comment on above: Order Comment: Speci men Type: BLOOD SPECIMENOrdering Facility: [facility] Address: [address] [place] [address] Performed By: #### 2 4323-8 ####[facility] LABCLIA [id number] [place] [address] [place] CO2 [Moles/Vol] 22 mmol/L Normal 22-30 [facility] Comment on above: Order Comment: Speci men Type: BLOOD SPECIMENOrdering Facility: [facility] Address: [address] [place], [place] [id number] Performed By: #### 2 4323-8 ####[facility] LABCLIA [id number] [place] [address] [place] Creatinine [Mass/Vol] 1.16 mg/dL High 0.58-0.96 [facility] Comment on above: Order Comment: Speci men Type: BLOOD SPECIMENOrdering Facility: [facility] Address: [address] [place] [address] Performed By: #### 2 4323-8 ####[facility] LABIA [id number] [place] [address] [place] Creatinine and Glomerular filtration rate.predicted panel (S/P/Bld) 50 mL/min/1.73m??? Low >=60 [facility] Comment on above: Order Comment: Stefanie vargas Type: BLOOD SPECIMENOrdering Facility: [facility] Address: [address] [place] [address] Result Comment: Tia mated Glomerular Filtration Rate (eGFR) is calculated using the 2020 CKD-EPI creatinine equation. This equation utilizes serum creatinine, sex, and age as parameters. The creatinine assay has traceable calibration to isotope dilution-mass spectrometry. Refer to KDIGO guidelines for clinical interpretation. In patients with unstable renal function, e.g. those with acute kidney injury, the eGFR may not accurately reflect actual GFR. Performed By: #### 2 4323-8 ####[facility] LABIA [id number] [place] [address] [place] Glucose [Mass/Vol] 145 mg/dL High 74-99 [facility] Comment on above: Order Comment: Stefanie vargas Type: BLOOD SPECIMENOrdering Facility: [facility] Address: [address] [place] [address] Result Comment: The [place] Diabetes Association (ADA) provides guidance for cutoff values for fasting glucose and random glucose. The ADA defines fasting as no caloric intake for at least 8 hours. Fasting plasma glucose results between 100 to 125 mg/dL indicate increased risk for diabetes (prediabetes). Fasting plasma glucose results greater than or equal to 126 mg/dL meet the criteria for diagnosis of diabetes. In the absence of unequivocal hyperglycemia, results should be confirmed by repeat testing. In a patient with classic symptoms of hyperglycemia or hyperglycemic crisis, random plasma glucose results greater than or equal to 200 mg/dL meet the criteria for diagnosis of diabetes. Reference: Standards of Medical Care in Diabetes 2016, [place] [employer] Association. Diabetes Care. 2016.39(Suppl 1). Performed By: #### 2 4323-8 ####[facility] LABCLIA [id number] [address] [address] [place] Potassium [Moles/Vol] 4.4 mmol/L Normal 3.7-5.1 [facility] Comment on above: Order Comment: Speci men Type: BLOOD SPECIMENOrdering Facility: [facility] Address: [address] [place] [address] Performed By: #### 2 4323-8 ####[facility] LABCLIA [id number] [place] [address] [place] Protein [Mass/Vol] 7.1 g/dL Normal 6.3-8.0 [facility] Comment on above: Order Comment: Speci men Type: BLOOD SPECIMENOrdering Facility: [facility] Address: [address] [place] [address] Performed By: #### 2 4323-8 ####[facility] LABIA [id number] [place] [address] [place] Sodium [Moles/Vol] 138 mmol/L Normal 136-144 [facility] Comment on above: Order Comment: Speci men Type: BLOOD SPECIMENOrdering Facility: [facility] Address: [address] [place] [address] Performed By: #### 2 4323-8 ####[facility] LABIA [id number] [place] [address] [place] Urea nitrogen [Mass/Vol] 31 mg/dL High 7-21 [facility] Comment on above: Order Comment: Speci men Type: BLOOD SPECIMENOrdering Facility: [facility] Address: [address] [place] [address] Performed By: #### 2 4323-8 ####[facility] LABIA [id number] [address] [address] [place] TOXICOLOGY SCREEN, ROUTINE U RINEon 06-15-2024 Amphetamines Confirm (U) [Mass/Vol] Negative Negative [facility] Comment on above: Cutoff threshold at 1000 ng/mL. Barbiturates Urine Negative Negative [facility] Comment on above: Cutoff threshold at 200 ng/mL. Benzodiazepines Urine Positive Abnormal Negative [facility] Comment on above: Cutoff threshold at 200 ng/mL. Cannabinoids Screen Ql (U) Negative Negative [facility] Comment on above: Cutoff threshold at 50 ng/mL. Cocaine Ql (U) Negative Negative [facility] Comment on above: Cutoff threshold at 300 ng/mL. Ethanol (U) [Mass/Vol] mg/dL NINF - 11 mg/dL [facility] Interpretation and review of laboratory results Abnormal [facility] Opiates Screen Ql (U) Negative Negative [facility] Comment on above: Cutoff threshold at 300 ng/mL. oxyCODONE cutoff Screen (U) [Mass/Vol] Negative Negative [facility] Comment on above: Cutoff threshold at 100 ng/mL. Phencyclidine Ql (U) Negative Negative [facility] Comment on above: Cutoff threshold at 25 ng/mL. Immunoassay screen o nly. Cross reactivity with other substances can occur with immunoassay screening. Detection of any drug(s) in this urine toxicology panel is presumptive only. These tests are for medical purposes only and should not be used for compliance monitoring, legal, or forensic use. Samples should be within normal physiological conditions (e.g. pH). This assay does not include adulteration/specimen validity testing. In clinical settings, confirmatory testing is at the practitioner's discretion [1]. If clinically indicated, confirmation by high specificity, quantitative methodology, which includes adulteration/specimen validity testing, may be requested on the same specimen through Client Services ([phone]) if contacted within 48 hours of initial testing. [1]Substance Abuse and Mental Health Services Administration (2012). Clinical Drug Testing in Primary Care Technical Assistance Publication Series 32. Department of Health and Human Services, [place], p.10. [facility] Amphetamines Confirm (U) [Mass/Vol] Negative Normal Negative [facility] Comment on above: Order Comment: Speci men Type: URINE SPECIMENOrdering Facility: [facility] Address: [address] [place] [address] Result Comment: Cuto ff threshold at 1000 ng/mL. Performed By: #### U TOX2 ####[facility] LABCLIA [id number] [place] [address] [place] BARBITURATES, URINE Negative Normal Negative [facility] Comment on above: Order Comment: Speci men Type: URINE SPECIMENOrdering Facility: [facility] Address: [address] [place] [address] Result Comment: Cuto ff threshold at 200 ng/mL. Performed By: #### U TOX2 ####[facility] LABCLIA [id number] [place] [address] [place] BENZODIAZEPINES, UR Positive Abnormal Negative [facility] Comment on above: Order Comment: Speci men Type: URINE SPECIMENOrdering Facility: [facility] Address: [address] [place] [address] Result Comment: Cuto ff threshold at 200 ng/mL. Performed By: #### U TOX2 ####[facility] LABCLIA [id number] [place] [address] [place] Cannabinoids Screen Ql (U) Negative Normal Negative [facility] Comment on above: Order Comment: Speci men Type: URINE SPECIMENOrdering Facility: [facility] Address: [address] [place] [address] Result Comment: Cuto ff threshold at 50 ng/mL. Performed By: #### U TOX2 ####[facility] LABCLIA [id number] [place] [address] [place] Cocaine Ql (U) Negative Normal Negative [facility] Comment on above: Order Comment: Speci men Type: URINE SPECIMENOrdering Facility: [facility] Address: [address] [place] [address] Result Comment: Cuto ff threshold at 300 ng/mL. Performed By: #### U TOX2 ####[facility] LABCLIA [id number] [place] [address] [place] Ethanol (U) [Mass/Vol] <11 Normal <11 [facility] Comment on above: Order Comment: Speci men Type: URINE SPECIMENOrdering Facility: [facility] Address: [address] [place] [address] Performed By: #### U TOX2 ####[facility] LABCLIA [id number] [place] [address] [place] Opiates Screen Ql (U) Negative Normal Negative [facility] Comment on above: Order Comment: Speci men Type: URINE SPECIMENOrdering Facility: [facility] Address: [address] [place] [address] Result Comment: Cuto ff threshold at 300 ng/mL. Performed By: #### U TOX2 ####[facility] LABIA [id number] [place] [address] [place] oxyCODONE cutoff Screen (U) [Mass/Vol] Negative Normal Negative [facility] Comment on above: Order Comment: Speci men Type: URINE SPECIMENOrdering Facility: [facility] Address: [address] [place] [address] Result Comment: Cuto ff threshold at 100 ng/mL. Performed By: #### U TOX2 ####[facility] LABIA [id number] [place] [address] [place] Phencyclidine Ql (U) Negative Normal Negative [facility] Comment on above: Order Comment: Speci men Type: URINE SPECIMENOrdering Facility: [facility] Address: [address] [place] [address] Result Comment: Cuto ff threshold at 25 ng/mL. Performed By: #### U TOX2 ####[facility] LABIA [id number] [place] [address] [place] CBC W/Diff, Automatedon 09-2 Absolute Lymph 1.47 X10 3/uL Normal 0.83-4.51 [facility] Comment on above: Order Comment: Order Date: 05/16/24Order Info: 0184-1 - CBCD Performed By: #### L 501.080 #### [facility] [address] [place], [address] Absolute Neut 5.0 X10 3/uL Normal 2.0-7.7 [facility] Comment on above: Order Comment: Order Date: 05/16/24Order Info: 183-1 - CBCD Performed By: #### L 501.080 #### [facility] [address] [place], [address] Basophils/100 WBC (Bld) 0.7 % Normal 0-1 [facility] Comment on above: Order Comment: Order Date: 05/16/24Order Info: 183- - CBCD Performed By: #### L 501.080 #### [facility] [address] [place], [address] Eosinophils/100 WBC (Bld) 4.6 % Normal 0-5 [facility] Comment on above: Order Comment: Order Date: 05/16/24Order Info: 183- - CBCD Performed By: #### L 501.080 #### [facility] [address] [place], [address] Erythrocyte distribution width (RBC) [Ratio] 15.1 % High 11.6-14.6 [facility] Comment on above: Order Comment: Order Date: 05/16/24Order Info: 018-1 - CBCD Performed By: #### L 501.080 #### [facility] [address] [place], [address] Hematocrit (Bld) [Volume fraction] 43.5 % Normal 37-47 [facility] Comment on above: Order Comment: Order Date: 05/16/24Order Info: 0184-1 - CBCD Performed By: #### L 501.080 #### [facility] [address] [place], [address] Hemoglobin (Bld) [Mass/Vol] 13.3 g/dL Normal 12.0-15.0 [facility] Comment on above: Order Comment: Order Date: 05/16/24Order Info: 0184-1 - CBCD Performed By: #### L 501.080 #### [facility] [address] [place], [address] IG% 0.400 Normal 0.0-0.9 [facility] Comment on above: Order Comment: Order Date: 05/16/24Order Info: 018- - CBCD Result Comment: IG% - Immature Granulocytes (promyelocytes, myelocytes and metamyelocytes) > 1% indicates that a LEFT SHIFT is Present. Performed By: #### L 501.080 #### [facility] [address], [address] Lymphocytes/100 WBC (Bld) 19.8 % Normal 19-41 [facility] Comment on above: Order Comment: Order Date: 05/16/24Order Info: 018- - CBCD Performed By: #### L 501.080 #### [facility] [address] [place], [address] MCH (RBC) [Entitic mass] 25.5 pg Low 27.0-32.0 [facility] Comment on above: Order Comment: Order Date: 05/16/24Order Info: 0184- - CBCD Performed By: #### L 501.080 #### [facility] [address] [place], [address] MCHC (RBC) [Mass/Vol] 30.6 g/dL Low 32-36 [facility] Comment on above: Order Comment: Order Date: 05/16/24Order Info: 0184-1 - CBCD Performed By: #### L 501.080 #### [facility] [address] [place], [address] MCV (RBC) [Entitic vol] 83.3 fL Normal 81-99 [facility] Comment on above: Order Comment: Order Date: 05/16/24Order Info: 0184-1 - CBCD Performed By: #### L 501.080 #### [facility] [address] [place], [address] Monocytes/100 WBC (Bld) 8.1 % Normal 0-10 [facility] Comment on above: Order Comment: Order Date: 05/16/24Order Info: 4-1 - CBCD Performed By: #### L 501.080 #### [facility] [address] [place], [address] Neutrophils/100 WBC (Bld) 66.4 % Normal 47-70 [facility] Comment on above: Order Comment: Order Date: 05/16/24Order Info: 183- - CBCD Performed By: #### L 501.080 #### [facility] [address] [place], [address] Nucleated RBC (Bld) [#/Vol] 0 10*3/uL Normal 0-5 [facility] Comment on above: Order Comment: Order Date: 05/16/24Order Info: 018- - CBCD Performed By: #### L 501.080 #### [facility] [address] [place], [address] Platelet mean volume (Bld) [Entitic vol] 11.0 fL Normal 6.2-12.0 [facility] Comment on above: Order Comment: Order Date: 05/16/24Order Info: 018- - CBCD Performed By: #### L 501.080 #### [facility] [address] [place], [address] Platelets (Bld) [#/Vol] 253 10*3/uL Normal 150-450 [facility] Comment on above: Order Comment: Order Date: 05/16/24Order Info: 018- - CBCD Performed By: #### L 501.080 #### [facility] [address] [place], [address] RBC (Bld) [#/Vol] 5.22 10*6/uL Normal 4.2-5.4 [facility] Comment on above: Order Comment: Order Date: 05/16/24Order Info: 0184- - CBCD Performed By: #### L 501.080 #### [facility] [address] [place], [address] RDW SD 45.7 fl High 35.1-43.9 [facility] Comment on above: Order Comment: Order Date: 05/16/24Order Info: 018- - CBCD Performed By: #### L 501.080 #### [facility] [address] [place], [address] WBC (Bld) [#/Vol] 7.4 10*3/uL Normal 4.4-11.0 [facility] Comment on above: Order Comment: Order Date: 05/16/24Order Info: 0184- - CBCD Performed By: #### L 501.080 #### [facility] [address] [place], [address] Comprehensive Metabolic Prof ilon 05-16-2024 Albumin [Mass/Vol] 3.7 g/dL Normal 3.2-5.0 [facility] Comment on above: Order Comment: Order Date: 05/16/24Order Info: 0786-1 - CMPOrder Info: 3016-3 - TSH Performed By: #### L 501.080 #### [facility] [address] [place], [address] Albumin/Globulin [Mass ratio] 1.1 {ratio} Normal 0.9-2.4 [facility] Comment on above: Order Comment: Order Date: 05/16/24Order Info: 0786-1 - CMPOrder Info: 3016-3 - TSH Performed By: #### L 501.080 #### [facility] [address] [place], [address] ALK P 100 U/L Normal 45-117 [facility] Comment on above: Order Comment: Order Date: 05/16/24Order Info: 0786-1 - CMPOrder Info: 6-3 - TSH Performed By: #### L 501.080 #### [facility] [address] [place], [address] ALT [Catalytic activity/Vol] 28 U/L Normal 13-56 [facility] Comment on above: Order Comment: Order Date: 05/16/24Order Info: 0786-1 - CMPOrder Info: 6-3 - TSH Performed By: #### L 501.080 #### [facility] [address] [place], [address] AST [Catalytic activity/Vol] 20 U/L Normal 15-37 [facility] Comment on above: Order Comment: Order Date: 05/16/24Order Info: 0786-1 - CMPOrder Info: 3015-3 - TSH Performed By: #### L 501.080 #### [facility] [address] [place], [address] Bilirubin [Mass/Vol] 0.50 mg/dL Normal 0.20-1.00 [facility] Comment on above: Order Comment: Order Date: 05/16/24Order Info: 0786-1 - CMPOrder Info: 3015-3 - TSH Result Comment: For patients on eltrombopag therapy, use of Dimension [place] TBIL is not recommended. Performed By: #### L 501.080 #### [facility] [address] [place], [address] BUN/CRE 25.9 RATIO High 10-20 [facility] Comment on above: Order Comment: Order Date: 05/16/24Order Info: 0786-1 - CMPOrder Info: 6-3 - TSH Performed By: #### L 501.080 #### [facility] [address] [place], [address] CA,Total 9.4 mg/dL Normal 8.5-10.1 [facility] Comment on above: Order Comment: Order Date: 05/16/24Order Info: 0786-1 - CMPOrder Info: 3015-10 - TSH Performed By: #### L 501.080 #### [facility] [address] [place], [address] Chloride [Moles/Vol] 109 mmol/L High 98-107 [facility] Comment on above: Order Comment: Order Date: 05/16/24Order Info: 785-1 - CMPOrder Info: 3015-10 - TSH Performed By: #### L 501.080 #### [facility] [address] [place], [address] CO2 [Moles/Vol] 24.0 mmol/L Normal 21.0-32.0 [facility] Comment on above: Order Comment: Order Date: 05/16/24Order Info: 785-1 - CMPOrder Info: 3015-10 - TSH Performed By: #### L 501.080 #### [facility] [address] [place], [address] Creatinine [Mass/Vol] 1.08 mg/dL High 0.55-1.02 [facility] Comment on above: Order Comment: Order Date: 05/16/24Order Info: 785-1 - CMPOrder Info: 3015-10 - TSH Result Comment: The validity of the calculated GFR GFRAA in patients over 70 years has not been determined. Clinical correlation is essential. Performed By: #### L 501.080 #### [facility] [address] [place], [address] EST GFR - AA 64 mL/min Normal >60 [facility] Comment on above: Order Comment: Order Date: 05/16/24Order Info: 07-1 - CMPOrder Info: 3015-10 - TSH Result Comment: Afri can [place] GFR Calc Performed By: #### L 501.080 #### [facility] [address] [place], [address] GAP 7 Normal 5-15 [facility] Comment on above: Order Comment: Order Date: 05/16/24Order Info: 0786-1 - CMPOrder Info: 3015-3 - TSH Performed By: #### L 501.080 #### [facility] [address] [place], [address] GFR/1.73 sq M.predicted among non-blacks MDRD (S/P/Bld) [Vol rate/Area] 53 mL/min/{1.73_m2} Low >60 [facility] Comment on above: Order Comment: Order Date: 05/16/24Order Info: 0786-1 - CMPOrder Info: 3015-3 - TSH Result Comment: Non- GFR Calc Performed By: #### L 501.080 #### [facility] [address] [place], [address] Globulin (S) [Mass/Vol] 3.5 g/dL Normal 2.2-4.2 [facility] Comment on above: Order Comment: Order Date: 05/16/24Order Info: 0786-1 - CMPOrder Info: 3015-3 - TSH Performed By: #### L 501.080 #### [facility] [address] [place], [address] Glucose [Mass/Vol] 110 mg/dL High 74-106 [facility] Comment on above: Order Comment: Order Date: 05/16/24Order Info: 0786-1 - CMPOrder Info: 3015-3 - TSH Result Comment: Fast ing Glucose result from 100 to 125 mg/dL suggests IMPAIRED HOMEOSTASIS per A.D.A. criteria. Performed By: #### L 501.080 #### [facility] [address] [place], [address] Potassium [Moles/Vol] 4.3 mmol/L Normal 3.5-5.1 [facility] Comment on above: Order Comment: Order Date: 05/16/24Order Info: 0786-1 - CMPOrder Info: 3016-3 - TSH Performed By: #### L 501.080 #### [facility] [address] [place], [address] Sodium [Moles/Vol] 140 mmol/L Normal 136-145 [facility] Comment on above: Order Comment: Order Date: 05/16/24Order Info: 0786-1 - CMPOrder Info: 3016-3 - TSH Performed By: #### L 501.080 #### [facility] [address] [place], [address] T PROT 7.2 g/dL Normal 6.4-8.2 [facility] Comment on above: Order Comment: Order Date: 05/16/24Order Info: 0786-1 - CMPOrder Info: 3016-3 - TSH Performed By: #### L 501.080 #### [facility] [address] [place], [address] Urea nitrogen [Mass/Vol] 28 mg/dL High 7-18 [facility] Comment on above: Order Comment: Order Date: 05/16/24Order Info: 0786-1 - CMPOrder Info: 3016-3 - TSH Performed By: #### L 501.080 #### [facility] [address] [place], [address] Partial Thromboplast Timeon 05-16-2024 aPTT Coag (Bld) [Time] 25.7 s Normal 24.1-36.2 [facility] Comment on above: Order Comment: Order Date: 05/16/24Order Info: 6301-6 - PTOrder Info: 94928-2 - PTT Performed By: #### L 100.0500, L500.2500 #### [facility] [address] [place], [address] Prothrombin Time w/INRon INR Coag (PPP) [Relative time] 1.1 {INR} Normal [facility] Comment on above: Order Comment: Order Date: 05/16/24Order Info: 6301-6 - PTOrder Info: 60537-7 - PTT Performed By: #### L 100.0500, L500.2500 #### [facility] [address] [place], [place], [address] PT Coag (PPP) [Time] 14.0 s Normal 11.7-14.9 [facility] Comment on above: Order Comment: Order Date: 05/16/24Order Info: 6301-6 - PTOrder Info: 79960-6 - PTT Performed By: #### L 100.0500, L500.2500 #### [facility] [address] [place], [place], [address] Thyroid Stim Hormone (TSH)on 05-16-2024 TSH 1.260 uIU/mL Normal 0.358-3.[address] [facility] Comment on above: Order Comment: Order Date: 05/16/24Order Info: 0786-1 - CMPOrder Info: 3016-3 - TSH Performed By: #### L 100.0500, L500.2500 #### [facility] [address] [facility] [place], [place], [address] Vitamin D,25 Hydroxyon 05-16 Vitamin D 25-OH 27.8 ng/mL Normal [facility] Comment on above: Order Comment: Order Date: 05/16/24Order Info: 32223-9 - VITD25 Result Comment: Jaylyn min D 25(OH) Status Range Deficiency <20 ng/mL (50nmol/L) Insufficiency 20 - 30 ng/mL (50 - 75 nmol/L) Sufficiency 30 - 100 ng/mL (75 - 250 nmol/L) Toxicity >100 ng/mL (>250 nmol/L) Performed By: #### L 501.080 #### [facility] [address] [place], [place], [address] Echo Completeon 05-01-2024 Echo Complete [facility] [address] [place] [address] Echo Complete 05/01/24 1112 MR#: [id number] Acct: [id number] Name: RAJWINDER WYLIE Rep #: [id number] : 1950 73 From: Gus Blue MD Attending Dr: Barbara Beth BARREL LEVELER-C Status: REG C Ordering Dr: Barbara Beth BARREL LEVELER BARREL LEVELER-C Date: 05/01/24 Location: [facility] Sex: F C Admitted: Reason For Study: Murmur Procedure This was a 2D Doppler, Color Flow transthoracic echocardiogram. Exam performed in department. Left Ventricle Normal LV size. Left ventricular systolic function is normal. The left ventricular ejection fraction is 70 %. No regional wall motion abnormalities noted. Right Ventricle Normal RV size. Normal systolic function. Atria The left atrium is mildly enlarged. Normal right atrium. Mitral Valve Normal mitral valve. Tricuspid Valve Normal tricuspid valve. Mild to moderate (1-2+) tricuspid valve insufficiency. Pulmonary artery systolic pressure is 40 mmHg. Aortic Valve Trisinus/trileaflet aortic valve. Mild focal aortic valve calcification. Pulmonic Valve Normal pulmonic valve. Great Vessels Normal aortic root. The pulmonary artery is normal size. Normal inferior vena cava. Pericardium/Pleural No pericardial effusion. MMode/2D Measurements Calculations LVIDd: 4.7 cm IVSd: 1.2 cm LVOT diam: 2.0 cm LVIDs: 3.1 cm LVPWd: 1.1 cm LVOT area: 3.1 cm2 RVDd: 3.5 cm FS: 34.2 % Ao root diam: 3.2 cm LAV(MOD-bp): 74.5 ml LVAd ap4: 23.6 cm2 ACS: 0.98 cm LAV(MOD-bp) Indexed: 39.7 ml/m2 LVLd ap4: 7.1 cm LA dimension: 4.0 cm LAV(MOD-sp2): 55.9 ml EDV(MOD-sp4): 64.8 ml LAV(MOD-sp4): 79.0 ml EDV(sp4-el): 66.6 ml LVAs ap4: 11.5 cm2 LVLs ap4: 5.9 cm ESV(MOD-sp4): 19.0 ml ESV(sp4-el): 19.0 ml EF(MOD-sp4): 70.6 % EF(sp4-el): 71.5 % SV(MOD-sp4): 45.7 ml SV(sp4-el): 47.6 ml Aortic Valve Planimetry: 1.1 cm2 LA A4 area: 25.1 cm2 RA A4 area: 16.6 cm2 TAPSE: 2.2 cm Time Measurements MV dec time: 0.19 sec Doppler Measurements Calculations MV E max john: 95.7 cm/sec Lat Peak E' John: 6.1 cm/sec Med Peak E' John: 8.5 cm/sec MV A max john: 88.4 cm/sec E/E' lat: 15.7 E/E' med: 11.2 MV E/A: 1.1 MV V2 max: 93.9 cm/sec MV P1/2t max john: 89.8 cm/sec Ao V2 max: 303.5 cm/sec MV max P.5 mmHg MV P1/2t: 61.9 msec Ao max P.9 mmHg MV V2 mean: 58.6 cm/sec Ao V2 mean: 216.8 cm/sec MV mean P.6 mmHg MV dec slope: 425.0 cm/sec2 Ao mean P.0 mmHg MV V2 VTI: 30.4 cm MVA(P1/2t): 3.6 cm2 Ao V2 VTI: 76.8 cm AV (velocity ratio): 0.39 MVA(VTI): 3.0 cm2 SHELLEY(I,D): 1.2 cm2 SHELLEY(V,D): 1.2 cm2 LV V1 max: 118.3 cm/sec SV(LVOT): 92.4 ml PA V2 max: 94.1 cm/sec LV V1 max P.6 mmHg PA max PG (full): 0.98 mmHg LV V1 mean P.5 mmHg PA V2 mean: 66.0 cm/sec LV V1 mean: 89.8 cm/sec PA mean PG (full): 0.33 mmHg LV V1 VTI: 30.0 cm TR max john: 300.6 cm/sec TR max P.2 mmHg ECHO/Echo Complete Interpretation Summary Normal LV size. Left ventricular systolic function is normal. The left ventricular ejection fraction is 70 %. Mild focal aortic valve calcification. Ordering Physician: Barbara Beth Referring Physician: Barbara Beth Performed By: Neto Rutherford RCS 05/01/24 170 Date Gus Blue MD CC: BARREL LEVELER-C Barbara Beth; Dr. Daivon Peoples MD Date Dictated: 05/01/24 1112 Date Transcribed: 05/01/241700 Rn Utilization Management Um: Signed Normal [facility] Inital Evaluation (1) - PTon 04-05-2024 Inital Evaluation (1) - PT [facility] Physical Therapy [address] [place] [address] / REHABILITATION SERVICES INITIAL EVALUATION MR#: [id number] Acct: [id number] Name: RAJWINDER WYLIE Rep #: [id number] : 1950 73 From: Licha Rodriguez PT. T, OCS Referring Dr.: Dr. Radha Moore MD Status: REG RCR Insurance: MEDICARE PART A B [facility] Patient's Visit Information Visit Information Visit Information: RAJWINDER WYLIE is a 73 year old F referred to Physical Therapy by Radha Moore MD with a diagnosis of LEFT HIP PAIN AND LEFT LEG PAIN. Date of Evaluation: 04/05/24 Physical Therapist: Laith Castellano PT, Cert T, OCS Visit Plan Frequency: 2x /Week Duration: 4 Weeks Plan: PT INTERVENTIONS BLE STRENGTHENING ,FUNCTIONAL STRENGTHENING ,PROGRESSIVE BALANCE TRAINING, AND ENDURANCE AEROBIC EX'S Subjective Subjective: This 73 y/o female presents to physical therapy with left hip and leg pain. Patient has had hip and leg pain since . Patient had syncope episode thus was in Hospital [facility] due to multiple complexity medically septic UTI 2 weeks . Once become medical stable, then transferred to [facility] . Patient seen DR Berry in October needs a Reverse TSR right. Patient has weakness in left leg and impaired balance. Patient has difficulty with ADLS and housework tasks . Denies paresthesia/tingling. Aggravating factors walking/standing ,unable to squat or kneel. Alleviating factors sitting Patient lives in 2 story stays on 1st floor. Patient has 2 steps . Patient has Tub shower set up.. Patient is able to dress self. Patient has meals on wheels. Patient use cane for gait. Patient has had prior PT in past .Patient has multiple complexity issues which influences condition. Patient goals to get stronger. RTD in 2weeks. No recent imaging SOCIAL : lives alone Objective Objective: POSTURE : mild forward posture ,hip/knees flexed NEURO: denies paresthesia/tingling ,reflexes L3-4,L4-5 ,.L5-S1 1/3 ,supine -sit some dizziness PALAPTION: unremarkable GAIT: ambulates with straight cane slow vitor FLEXABILITY: hamstring MIN tight PROM: hip flexion 110 degrees ,hip IR 30 degrees LUMBAR ROM: flexion mod loss ,extension mod loss ,side glid,es mod loss MMT: ( peak force) quads right 23.8 ,left 17.8 ,hamstrings right 21.1 ,left 14.6 ,hip flexion left 13.8 ,right 17.2 Special Tests L/S Slump test left side: Negative L/S Slump test right side: Negative L/S Left Straight Leg Raise: Negative L/S Right Straight Leg Raise: Negative L Hip Scour: Negative L Hip TOMAS - Intraarticular Pathology: Negative L Hip Impingement Provocation - Labrum: Negative L Hip Trendelenberg - Glut Medius: Negative L Hip Razia - IT Band: Negative L Hip Resisted Exernal Derotation Test - GT Pain Syndrome: Negative Balance/Special Test Scores Functional Gait Assessment Score: 11 % Disability: 63.3400 CATSIB Score (Max score 120 seconds): 55 Lower Extremity Functional Score: 22 Goals Goal 1:: Patient to be I with HEP. Goal Time Frame: 4-6 Weeks Goal 2:: Patient to peak force BLE by 5-10 # to improve function Goal Time Frame: 4-6 Weeks Goal 3:: Patient to improve LFES score by 5 points > to improve QOL Goal Time Frame: 4-6 Weeks Goal 4:: Patient to improve CATSIB by 5 points to improve balance Goal Time Frame: 4-6 Weeks Goal 5:: Patient to improve functional gait assessment score by 5 points to improve balance /gait Goal Time Frame: 4-6 Weeks Goal 6:: Patient to demonstrate 50 % improvement with improve function and gait Goal Time Frame: 4-6 Weeks Rehabilitation Potential Physical Therapy Diagnosis: This patient has weakness in BLE and balance deficits with multiple complexity issues influences condition with decrease gait and affects ADLS Rehabilitation Potential: Good Anticipated Interventions Patient/Client Instruction: Educate patient on: Condition and Plan of Care For the Purpose of:: To decrease pain, To increase ROM, To improve muscle performance and motor function, To improve ability to perform ADL's, To increase tolerance to activity/condition/position , To improve performance and independence with ADL's, To improve ability of physical actions for home/community/work/leisure , To improve gait and locomotor functions, To increase flexibility/ROM, To improve endurance, To improve balance and To improve health and function Therapeutic Exercise to Include: Strength training, Endurance training, Balance training and Postural training Comment: BLE For the Purpose of:: To decrease pain, To increase ROM, To improve muscle performance and motor function, To improve ability to perform ADL's, To increase tolerance to activity/condition/position , To improve ability of physical actions for home/community/work/leisure , To improve gait and locomotor functions, To improve endurance, (more content not included)... Normal [facility] SCRN MAMM (CAD)W/MALGORZATA BILATo n 04-02-2024 SCRN MAMM (CAD)W/MALGORZATA BILAT [facility] Imaging Services [address] [place] [address] SCRN MAMM (CAD)W/MALGORZATA BILAT MR#: [id number] Acct: [id number] Name: RAJWINDER WYLIE Rep #: [id number] : 1950 F 73 From: Hung dobbs MD PCP: Dr. Daivon Peoples MD Status: REG CLI Study: SCRN MAMM (CAD)W/MALGORZATA BILAT Date of Exam: 03/22 10/15 Exam# [id number] Ordering Dr: Radha Moore MD [id number] MAMMOGRAPHY - BILATERAL SCREENING REASON FOR EXAM: Female, 73 years old. Routine annual screening examination. PERTINENT HISTORY: Non-contributory. TECHNIQUE: Digital bilateral breast malgorzata (3D mammographic acquisition) in the CC and MLO projections. 2-D mediolateral oblique (MLO) and craniocaudad (CC) views of both breasts were obtained. CAD: Full Field Digital Mammography with Computer Added Detection was performed. COMPARISON: Comparison is made with prior study dated December 29, 2022 and December 09, 2021. FINDINGS: Breast Composition: The breasts are heterogeneously dense, which may obscure small masses. There are no dominant masses or suspicious calcifications. Stable scattered bilateral calcifications. No focal cluster is seen. No other significant abnormalities are identified. There has been no significant change since the prior study. BI/SCRN MAMM (CAD)W/MALGORZATA BILAT IMPRESSION: Stable bilateral screening mammogram. Yearly follow-up mammogram recommended. (A) ASSESSMENT CATEGORY: BIRADS Category 2: Benign. A letter regarding these results will be sent to the patient by the facility within 30 days. Approximately 10% of breast cancers are not detected by mammography. A normal mammogram should not delay biopsy of a clinically suspicious abnormality. [id number] Electronically Signed: Hung Graham MD at 8:24 EDT , CC: Dr. Radha Moore MD; Dr. Davion Peoples MD Rn Utilization Management Um: Signed Normal [facility] Cardiology Visit Reporton Cardiology Visit Report [facility] [address] [place] [address] OFFICE VISIT Date of Service: 03/28/24 MR#: [id number] Acct: [id number] Name: RAJWINDER WYLIE Rep #: [id number] : 1950 Provider: MATT meza Age/Sex: 73/F Location: [facility] Status: Signed HPI HPI History of Present Illness Details: Rajwinder Wylie is a 73-year-old female who presents here today for a cardiovascular follow-up. She recently established with us for a preoperative assessment. She does have a history of hypertension, nonobstructive coronary artery disease. Echocardiogram in 2019 demonstrated normal LV size with moderate concentric LVH, estimated ejection fraction of 65%, valves were not well visualized. As part of her work-up she did undergo a pharmacologic nuclear stress test which demonstrated mild anterior ischemia with a preserved ejection fraction. She did undergo a diagnostic heart catheterization which demonstrated left main angiographically normal, LAD medium size giving off 2 diagonal vessels, vessels appear to be totally occluded with a small distal vessel, second diagonal which is larger branch itself is diseased, circumflex nondominant medium size giving off to first obtuse marginal branch and second obtuse marginal branch with mid 80% stenosis, RCA less than 30% stenosis. She did undergo stenting to her mid circumflex. From a cardiac standpoint, the patient is doing well. She denies any palpitations, chest pain, pressure or heaviness. She does have SOB with exertion and at rest. This is nothing new or worsening. She denies Orthopnea, and PND. She does not have bleeding issues; no blood in urine, stool or nosebleeds. She does acknowledge a slight decrease in energy level. She denies myalgias, or claudication. She does not have edema, or sudden weight gain. She does acknowledge occasional lightheadedness with quick positional changes, and weather changes. She denies dizziness, syncopal or near syncopal episodes, and headaches. 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 Is patient in pain?: No Allergies Sulfa (Sulfonamide Antibiotics) Allergy (Verified 03/28/24 16:35) Hives tree nut Allergy (Verified 03/28/24 16:35) Anaphylaxis Rabbit Adverse Reaction (Severe, Verified 03/28/24 16:35) NEEDS FOLLOW-UP sulfamethoxazole (From Bactrim) Adverse Reaction (Severe, Verified 03/28/24 16:35) Skin rashes blisters trimethoprim (From Bactrim) Adverse Reaction (Severe, Verified 03/28/24 16:35) Skin rashes blisters codeine Adverse Reaction (Verified 03/28/24 16:35) Other Environmental Allergies: Uncoded Adverse Reaction (Verified 03/28/24 16:35) NEEDS FOLLOW-UP erythromycin base Adverse Reaction (Verified 03/28/24 16:35) Upset Stomach milk (dairy) Adverse Reaction (Verified 03/28/24 16:35) Upset Stomach morphine Adverse Reaction (Verified 03/28/24 16:35) Nausea Medications ???Medication ???Instructions ???Recorded ???Confirmed ???Type fluticasone 500 mcg-salmeterol 50 1 puff inhalation BID shortness of 01/23/15 03/28/24 History mcg/dose blistr powdr for breath inhalation (Advair Diskus) albuterol sulfate 90 mcg/actuation 1 - 2 puff inhalation Q4H PRN 04/15/15 03/28/24 History aerosol inhaler (ProAir HFA) Asthma montelukast 10 mg tablet 10 mg PO QHS allergies 04/15/15 03/28/24 History amlodipine 10 mg tablet 10 mg PO DAILY blood pressure 05/28/15 03/28/24 History atorvastatin 20 mg tablet 20 mg PO QHS cholesterol 09/23/22 03/28/24 History citalopram 40 mg tablet 40 mg PO QHS sleep 09/23/22 03/28/24 History empagliflozin 10 mg tablet 10 mg PO DAILY diabetes 09/23/22 03/28/24 History (Jardiance) glipizide 5 mg tablet, extended 5 mg PO DAILY diabetes 09/23/22 03/28/24 History release 24 hr hydrochlorothiazide 12.5 mg tablet 12.5 mg PO DAILY blood pressure 09/23/22 03/28/24 History leflunomide 20 mg tablet 20 mg PO DAILY inflammation 09/23/22 03/28/24 History levetiracetam 750 mg 750 mg PO QHS seizures 09/23/22 03/28/24 History tablet,extended release 24 hr losartan 100 mg tablet 100 mg PO QHS blood pressure 09/23/22 03/28/24 History metformin 500 mg tablet 500 mg PO DAILY diabetes 09/23/22 03/28/24 History ondansetron HCl 4 mg tablet 4 mg PO Q8H PRN Nausea 09/23/22 03/28/24 History potassium chloride 20 mEq 20 meq PO DAILY potassium 09/23/22 03/28/24 History tablet,extended release quetiapine 100 mg tablet 200 mg PO QHS mood disorder 09/23/22 03/28/24 History tiotropium bromide 2.5 2 puff inhalation DAILY (more content not included)... Normal [facility] Absolute lymphocyte countOrd ered By: Michell Silvestre on 12-01-2023 Lymphocytes Auto (Unsp spec) [#/Vol] 1.52 10*3/uL 0.83-4.51 [facility] Automated lymphocyte count a s percentage of total leukocytesOrdered By: Michell Silvestre on 12-01-2023 Lymphocytes/100 WBC Auto (Unsp spec) 29.0 % 19-41 [facility] Basophil percentageOrdered B y: Michell Silvestre on 12-01-2023 Basophils/100 WBC (Bld) 1.0 % 0-1 [facility] Chloride [Moles/Vol] 113 mmol/L 98-107 [facility] Eosinophils/100 WBC (Bld) 11.6 % 0-5 [facility] Glucose [Mass/Vol] 119 mg/dL 74-106 [facility] Comment on above: Fasting Glucose resu lt from 100 to 125 mg/dL suggests IMPAIRED HOMEOSTASIS per A.D.A. criteria. Hemoglobin (Bld) [Mass/Vol] 8.2 g/dL 12.0-15.0 [facility] Monocytes/100 WBC (Bld) 10.1 % 0-10 [facility] Neutrophils (Bld) [#/Vol] 2.5 10*3/uL 2.0-7.7 [facility] Neutrophils/100 WBC (Bld) 47.0 % 47-70 [facility] Potassium [Moles/Vol] 3.9 mmol/L 3.5-5.1 [facility] Sodium [Moles/Vol] 140 mmol/L 136-145 [facility] WBC (Bld) [#/Vol] 5.3 10*3/uL 4.4-11.0 [facility] Bilirubin Test strip Ql (U)O rdered By: Michell Silvestre on 12-01-2023 Bilirubin Ql (U) Negative Negative [facility] Culture, urineOrdered By: George Silvestre on 12-01-2023 Bacteria identified Cx Nom (U) Mixed Gram Pos & Gram Neg Org [facility] Determination of erythrocyte mean corpuscular volume (MCV)Ordered By: Michell Silvestre on 12-01-2023 MCV (RBC) [Entitic vol] 85.9 fL 81-99 [facility] Erythrocyte distribution wid th ratioOrdered By: Anjelicamccauslandtejas Silvestre on 12-01-2023 Erythrocyte distribution width (RBC) [Ratio] 18.9 % 11.6-14.6 [facility] Erythrocyte distribution wid th standard deviationOrdered By: arabellamccauslandtejas Kendrickamy on 12-01-2023 Erythrocyte distribution width (RBC) [Entitic vol] 58.4 fL 35.1-43.9 [facility] Hematocrit Auto (Bld) [Volum e fraction]Ordered By: Michell Silvestre on 12-01-2023 Hematocrit (Bld) [Volume fraction] 28.7 % 37-47 [facility] Immature granulocytes/100 WB C Auto (Bld)Ordered By: flora Silvestre on 12-01-2023 Immature granulocytes/100 WBC (Bld) 1.300 % 0.0-0.9 [facility] Comment on above: IG% - Immature Granu locytes (promyelocytes, myelocytes and metamyelocytes) > 1% indicates that a LEFT SHIFT is Present. Ketones Test strip Ql (U)Ord ered By: Michell Silvestre on 12-01-2023 Ketones Ql (U) Negative Negative [facility] Laboratory - Chemistry and C hemistry - challengeOrdered By: Michell Silvestre on 12-01-2023 CO2 [Moles/Vol] 22.0 mmol/L 21.0-32.0 [facility] Urea nitrogen/Creatinine [Mass ratio] 17.1 mg/mg 10-20 [facility] - Hematology and Cell countsOrdered By: Michell Silvestre on 12-01-2023 MCH (RBC) [Entitic mass] 24.6 pg 27.0-32.0 [facility] MCHC (RBC) [Mass/Vol] 28.6 g/dL 32- [facility] Nucleated RBC/100 WBC (Bld) [Ratio] 0 % 0-5 [facility] Platelet mean volume (Bld) [Entitic vol] 9.2 fL 6.2-12.0 [facility] Platelets (Bld) [#/Vol] 210 10*3/uL 150-450 [facility] Nitrite Test strip Ql (U)Ord ered By: Michell Silvestre on 12-01-2023 Nitrite Ql (U) Negative Negative [facility] No Panel InformationOrdered By: Michell Silvestre on 12-01-2023 Estimated GFR (MDRD) Amer 76 mL/min >60 [facility] Comment on above: GFR Calc Estimated GFR (MDRD) Non-Af Amer 63 mL/min >60 [facility] Comment on above: Non- GFR Calc Protein Test strip Ql (U)Ord ered By: Michell Silvestre on 12-01-2023 Protein Ql (U) Negative Negative [facility] RBC Auto (Bld) [#/Vol]Ordere d By: Michell Silvestre on 12-01-2023 RBC (Bld) [#/Vol] 3.34 10*6/uL 4.2-5.4 [facility] Serum or plasma calcium javad urement (mass/volume)Ordered By: Michell Silvestre on 12-01-2023 Calcium [Mass/Vol] 8.7 mg/dL 8.5-10.1 [facility] Serum or plasma creatinine m easurement (mass/volume)Ordered By: Michell Silvestre on 12-01-2023 Creatinine [Mass/Vol] 0.94 mg/dL 0.55-1.02 [facility] Comment on above: The validity of the calculated GFR & GFRAA in patients over 70 years has not been determined. Clinical correlation is essential. Serum or plasma urea nitroge n measurement (mass/volume)Ordered By: Michell Silvestre on 12-01-2023 Urea nitrogen [Mass/Vol] 16 mg/dL 7-18 [facility] Thin prep Papanicolaou smear with manual screeningOrdered By: Michell Silvestre on 12-01-2023 Thin prep Papanicolaou smear with manual screening 5 5-15 [facility] Urine blood detectionOrdered By: Michell Silvestre on 12-01-2023 RBC Ql (U) 10 /ul Negative [facility] Urine clarityOrdered By: Pasquale Silvestre on 12-01-2023 Clarity (U) Clear Clear [facility] Urine color determinationOrd ered By: Michell Silvestre on 12-01-2023 Color (U) Yellow Yellow [facility] Urine glucose detectionOrder ed By: Michell Silvestre on 12-01-2023 Glucose Ql (U) 1000 mg/dl Normal [facility] Urine leukocyte esterase det ection by dipstickOrdered By: Michell Silvestre on 12-01-2023 Leukocyte esterase Test strip Ql (U) 25 /ul Negative [facility] Urine pHOrdered By: Alan Silvestre on 12-01-2023 pH (U) 5.0 [pH] 5.0 - 8.0 [facility] Urine specific gravity measu rementOrdered By: Michell Silvestre on 12-01-2023 Specific gravity (U) [Rel density] 1.015 1.002-1.[address] [facility] Urine urobilinogen measureme ntOrdered By: Michell Silvestre on 12-01-2023 Urobilinogen Ql (U) Normal mg/dl Normal [facility] Absolute lymphocyte countOrd ered By: Michell Silvestre on 11-24-2023 Lymphocytes Auto (Unsp spec) [#/Vol] 1.27 10*3/uL 0.83-4.51 [facility] Automated lymphocyte count a s percentage of total leukocytesOrdered By: Michell Silvestre on 11-24-2023 Lymphocytes/100 WBC Auto (Unsp spec) 23.7 % 19-41 [facility] Basophil percentageOrdered B y: Michell Silvestre on 11-24-2023 Basophils/100 WBC (Bld) 0.6 % 0-1 [facility] Chloride [Moles/Vol] 112 mmol/L 98-107 [facility] Eosinophils/100 WBC (Bld) 11.2 % 0-5 [facility] Glucose [Mass/Vol] 103 mg/dL 74-106 [facility] Comment on above: Fasting Glucose resu lt from 100 to 125 mg/dL suggests IMPAIRED HOMEOSTASIS per A.D.A. criteria. Hemoglobin (Bld) [Mass/Vol] 8.5 g/dL 12.0-15.0 [facility] Monocytes/100 WBC (Bld) 11.4 % 0-10 [facility] Neutrophils (Bld) [#/Vol] 2.7 10*3/uL 2.0-7.7 [facility] Neutrophils/100 WBC (Bld) 49.9 % 47-70 [facility] Potassium [Moles/Vol] 4.1 mmol/L 3.5-5.1 [facility] Sodium [Moles/Vol] 140 mmol/L 136-145 [facility] WBC (Bld) [#/Vol] 5.4 10*3/uL 4.4-11.0 [facility] Determination of erythrocyte mean corpuscular volume (MCV)Ordered By: Michell Silvestre on 11-24-2023 MCV (RBC) [Entitic vol] 83.5 fL 81-99 [facility] Erythrocyte distribution wid th ratioOrdered By: Michell Silvestre on 11-24-2023 Erythrocyte distribution width (RBC) [Ratio] 18.5 % 11.6-14.6 [facility] Erythrocyte distribution wid th standard deviationOrdered By: Michell Silvestre on 11-24-2023 Erythrocyte distribution width (RBC) [Entitic vol] 55.1 fL 35.1-43.9 [facility] Hematocrit Auto (Bld) [Volum e fraction]Ordered By: Michell Silvestre on 11-24-2023 Hematocrit (Bld) [Volume fraction] 28.9 % 37-47 [facility] Immature granulocytes/100 WB C Auto (Bld)Ordered By: Michell Silvestre on 11-24-2023 Immature granulocytes/100 WBC (Bld) 3.200 % 0.0-0.9 [facility] Comment on above: IG% - Immature Granu locytes (promyelocytes, myelocytes and metamyelocytes) > 1% indicates that a LEFT SHIFT is Present. Laboratory - Chemistry and C hemistry - challengeOrdered By: Michell Silvestre on 11-24-2023 CO2 [Moles/Vol] 21.0 mmol/L 21.0-32.0 [facility] Urea nitrogen/Creatinine [Mass ratio] 16.7 mg/mg 10-20 [facility] - Hematology and Cell countsOrdered By: Michell Silvestre on 11-24-2023 MCH (RBC) [Entitic mass] 24.6 pg 27.0-32.0 [facility] MCHC (RBC) [Mass/Vol] 29.4 g/dL 32-36 [facility] Nucleated RBC/100 WBC (Bld) [Ratio] 0 % 0-5 [facility] Platelet mean volume (Bld) [Entitic vol] 9.1 fL 6.2-12.0 [facility] Platelets (Bld) [#/Vol] 221 10*3/uL 150-450 [facility] No Panel InformationOrdered By: Michell Silvestre on 11-24-2023 Estimated GFR (MDRD) Amer 94 mL/min >60 [facility] Comment on above: GFR Calc Estimated GFR (MDRD) Non-Af Amer 77 mL/min >60 [facility] Comment on above: Non- GFR Calc RBC Auto (Bld) [#/Vol]Ordere d By: Michell Silvestre on 11-24-2023 RBC (Bld) [#/Vol] 3.46 10*6/uL 4.2-5.4 [facility] Serum or plasma calcium javad urement (mass/volume)Ordered By: Michell Silvestre on 11-24-2023 Calcium [Mass/Vol] 8.7 mg/dL 8.5-10.1 [facility] Serum or plasma creatinine m easurement (mass/volume)Ordered By: Michell Silvestre on 11-24-2023 Creatinine [Mass/Vol] 0.78 mg/dL 0.55-1.02 [facility] Comment on above: The validity of the calculated GFR & GFRAA in patients over 70 years has not been determined. Clinical correlation is essential. Serum or plasma urea nitroge n measurement (mass/volume)Ordered By: Michell Silvestre on 11-24-2023 Urea nitrogen [Mass/Vol] 13 mg/dL 7-18 [facility] Thin prep Papanicolaou smear with manual screeningOrdered By: flora Silvestre on 11-24-2023 Thin prep Papanicolaou smear with manual screening 7 5-15 [facility] Absolute lymphocyte countOrd ered By: Michell Silvestre on 11-17-2023 Lymphocytes Auto (Unsp spec) [#/Vol] 1.19 10*3/uL 0.83-4.51 [facility] Basophil percentageOrdered B y: Michell Silvestre on 11-17-2023 Basophil percentage Not Reportable W [facility] Chloride [Moles/Vol] 112 mmol/L 98-107 [facility] Glucose [Mass/Vol] 116 mg/dL 74-106 [facility] Comment on above: Fasting Glucose resu lt from 100 to 125 mg/dL suggests IMPAIRED HOMEOSTASIS per A.D.A. criteria. Hemoglobin (Bld) [Mass/Vol] 8.1 g/dL 12.0-15.0 [facility] Neutrophils (Bld) [#/Vol] 3.5 10*3/uL 2.0-7.7 [facility] Potassium [Moles/Vol] 4.5 mmol/L 3.5-5.1 [facility] Sodium [Moles/Vol] 139 mmol/L 136-145 [facility] WBC (Bld) [#/Vol] 5.7 10*3/uL 4.4-11.0 [facility] Blood band neutrophil count as percentage of total leukocytesOrdered By: Michell Silvestre on 11-17-2023 Band form neutrophils/100 WBC (Bld) 2 % 0-5 [facility] Blood basophils/100 leukocyt esOrdered By: Efewongbe Oleghe on 11-17-2023 Basophils/100 WBC (Bld) 1 % 0-1 [facility] Blood eosinophils/100 leukoc ytesOrdered By: Efewongbe Oleghe on 11-17-2023 Eosinophils/100 WBC (Bld) 6 % 0-5 [facility] Blood lymphocytes/100 leukoc ytesOrdered By: Efewongbe Elsye on 11-17-2023 Lymphocytes/100 WBC (Bld) 21 % 19-41 [facility] Blood metamyelocytes/100 alona kocytesOrdered By: Efewongbe Oleghe on 11-17-2023 Metamyelocytes/100 WBC (Bld) 3 % 0-1 [facility] Blood monocytes/100 leukocyt esOrdered By: Efewongbe Oleghe on 11-17-2023 Monocytes/100 WBC (Bld) 7 % 0-10 [facility] Blood platelet adequacy dete ction by light microscopyOrdered By: Anjelicaongbe Elsye on 11-17-2023 Platelets LM Ql (Bld) ADEQUATE ADEQ [facility] Blood polychromasia detectio n by light microscopyOrdered By: Efewongbe Oleghe on 11-17-2023 Polychromasia LM Ql (Bld) RARE [facility] Blood segmented neutrophils/ 100 leukocytesOrdered By: Efewongbe Oleaarone on 11-17-2023 Segmented neutrophils/100 WBC (Bld) 60 % 47-70 [facility] Determination of erythrocyte mean corpuscular volume (MCV)Ordered By: Michell Silvestre on 11-17-2023 MCV (RBC) [Entitic vol] 85.2 fL 81-99 [facility] Erythrocyte distribution wid th ratioOrdered By: Michell Silvestre on 11-17-2023 Erythrocyte distribution width (RBC) [Ratio] 17.6 % 11.6-14.6 [facility] Erythrocyte distribution wid th standard deviationOrdered By: Michell Silvestre on 11-17-2023 Erythrocyte distribution width (RBC) [Entitic vol] 53.8 fL 35.1-43.9 [facility] Hematocrit Auto (Bld) [Volum e fraction]Ordered By: Michell Silvestre on 11-17-2023 Hematocrit (Bld) [Volume fraction] 28.7 % 37-47 [facility] Laboratory - Chemistry and C hemistry - challengeOrdered By: Michell Silvestre on 11-17-2023 CO2 [Moles/Vol] 21.0 mmol/L 21.0-32.0 [facility] Urea nitrogen/Creatinine [Mass ratio] 23.2 mg/mg 10-20 [facility] Laboratory - Hematology and Cell countsOrdered By: Michell Silvestre on 11-17-2023 MCH (RBC) [Entitic mass] 24.0 pg 27.0-32.0 [facility] MCHC (RBC) [Mass/Vol] 28.2 g/dL 32-36 [facility] Platelet mean volume (Bld) [Entitic vol] 9.5 fL 6.2-12.0 [facility] Platelets (Bld) [#/Vol] 241 10*3/uL 150-450 [facility] No Panel InformationOrdered By: Michell Silvestre on 11-17-2023 Estimated GFR (MDRD) Amer 88 mL/min >60 [facility] Comment on above: GFR Calc Estimated GFR (MDRD) Non-Af Amer 73 mL/min >60 [facility] Comment on above: Non- GFR Calc Ovalocyte detectionOrdered B y: Michell Silvestre on 11-17-2023 Ovalocytes LM Ql (Bld) RARE [facility] RBC Auto (Bld) [#/Vol]Ordere d By: Michell Silvestre on 11-17-2023 RBC (Bld) [#/Vol] 3.37 10*6/uL 4.2-5.4 [facility] Review by pathologistOrdered By: Michell Silvestre on 11-17-2023 Pathologist review Camilo (Unsp spec) [Interp] Reviewed [facility] Comment on above: Previous reported re sult: Jinny ludwig Edited by: JALEN on 11/18/23:1101Neutrophilic left shift.Normocytic anemia.Clinical correlation necessary. AMENDED REPORT 11/18/23 1101 PATH REV previously reported as: Jinny ludwig Serum or plasma calcium javad urement (mass/volume)Ordered By: Michell Silvestre on 11-17-2023 Calcium [Mass/Vol] 8.7 mg/dL 8.5-10.1 [facility] Serum or plasma creatinine m easurement (mass/volume)Ordered By: Michell Silvestre on 11-17-2023 Creatinine [Mass/Vol] 0.82 mg/dL 0.55-1.02 [facility] Comment on above: The validity of the calculated GFR & GFRAA in patients over 70 years has not been determined. Clinical correlation is essential. Serum or plasma urea nitroge n measurement (mass/volume)Ordered By: Michell Silvestre on 11-17-2023 Urea nitrogen [Mass/Vol] 19 mg/dL 7-18 [facility] Thin prep Papanicolaou smear with manual screeningOrdered By: Michell Silvestre on 11-17-2023 Thin prep Papanicolaou smear with manual screening 6 5-15 [facility] Total cell countOrdered By: Michell Silvestre on 11-17-2023 Cells counted Molgen (Bld/Tiss) [#] [address] [facility] Whole blood hemoglobin A1c/t otal hemoglobin ratio (mass fraction)Ordered By: Michell Silvestre on 11-17-2023 HbA1c (Bld) [Mass fraction] 6.4 % 3.8-5.6 [facility] Comment on above: Normal < 5.7 % Predi abetic 5.7 - 6.4 % Diabetic >or= 6.5 % Please note range changes. Absolute lymphocyte countOrd ered By: Michell Silvestre on 11-10-2023 Lymphocytes Auto (Unsp spec) [#/Vol] 0.80 10*3/uL 0.83-4.51 [facility] Basophil percentageOrdered B y: Efarabellaongbe Elsye on 11-10-2023 Basophil percentage Not Reportable W [facility] Chloride [Moles/Vol] 109 mmol/L 98-107 [facility] Glucose [Mass/Vol] 97 mg/dL 74-106 [facility] Hemoglobin (Bld) [Mass/Vol] 7.7 g/dL 12.0-15.0 [facility] Neutrophils (Bld) [#/Vol] 3.6 10*3/uL 2.0-7.7 [facility] Potassium [Moles/Vol] 3.8 mmol/L 3.5-5.1 [facility] Sodium [Moles/Vol] 137 mmol/L 136-145 [facility] WBC (Bld) [#/Vol] 5.8 10*3/uL 4.4-11.0 [facility] Blood band neutrophil count as percentage of total leukocytesOrdered By: Efewongbe Elsye on 11-10-2023 Band form neutrophils/100 WBC (Bld) 2 % 0-5 [facility] Blood eosinophils/100 leukoc ytesOrdered By: Efewongbe Oleghe on 11-10-2023 Eosinophils/100 WBC (Bld) 11 % 0-5 [facility] Blood lymphocytes/100 leukoc ytesOrdered By: Efewongbe Oleghe on 11-10-2023 Lymphocytes/100 WBC (Bld) 14 % 19-41 [facility] Blood metamyelocytes/100 alona kocytesOrdered By: Efewongbe Oleghe on 11-10-2023 Metamyelocytes/100 WBC (Bld) 3 % 0-1 [facility] Blood monocytes/100 leukocyt esOrdered By: Efewongbe Oleghe on 11-10-2023 Monocytes/100 WBC (Bld) 6 % 0-10 [facility] Blood platelet adequacy dete ction by light microscopyOrdered By: Efewongbe Oleghe on 11-10-2023 Platelets LM Ql (Bld) ADEQUATE ADEQ [facility] Blood promyelocytes/100 leuk ocytesOrdered By: Efewongbe Oleghe on 11-10-2023 Promyelocytes/100 WBC (Bld) 1 % 0-0 [facility] Blood segmented neutrophils/ 100 leukocytesOrdered By: [facility] Sil[facility] on 11-10-2023 Segmented neutrophils/100 WBC (Bld) 61 % 47-70 [facility] Determination of erythrocyte mean corpuscular volume (MCV)Ordered By: Michell Silvestre on 11-10-2023 MCV (RBC) [Entitic vol] 82.2 fL 81-99 [facility] Erythrocyte distribution wid th ratioOrdered By: [facility] Aroldoamy on 11-10-2023 Erythrocyte distribution width (RBC) [Ratio] 17.1 % 11.6-14.6 [facility] Erythrocyte distribution wid th standard deviationOrdered By: [facility] Sil[facility] on 11-10-2023 Erythrocyte distribution width (RBC) [Entitic vol] 51.0 fL 35.1-43.9 [facility] Hematocrit Auto (Bld) [Volum e fraction]Ordered By: Anjelicamccauslandtejas Silvestre on 11-10-2023 Hematocrit (Bld) [Volume fraction] 26.3 % 37-47 [facility] Laboratory - Chemistry and C hemistry - challengeOrdered By: [facility] on 11-10-2023 CO2 [Moles/Vol] 22.0 mmol/L 21.0-32.0 [facility] Urea nitrogen/Creatinine [Mass ratio] 24.4 mg/mg 10-20 [facility] Laboratory - Hematology and Cell countsOrdered By: flora Silvestre on 11-10-2023 MCH (RBC) [Entitic mass] 24.1 pg 27.0-32.0 [facility] MCHC (RBC) [Mass/Vol] 29.3 g/dL 32-36 [facility] Myelocytes/100 WBC (Bld) 2 % 0-0 [facility] Platelet mean volume (Bld) [Entitic vol] 9.3 fL 6.2-12.0 [facility] Platelets (Bld) [#/Vol] 214 10*3/uL 150-450 [facility] No Panel InformationOrdered By: Michell Silvestre on 03-21-2024 Estimated GFR (MDRD) Amer 83 mL/min >60 [facility] Comment on above: GFR Calc Estimated GFR (MDRD) Non-Af Amer 69 mL/min >60 [facility] Comment on above: Non- GFR Calc RBC Auto (Bld) [#/Vol]Ordere d By: Michell Silvestre on 11-10-2023 RBC (Bld) [#/Vol] 3.20 10*6/uL 4.2-5.4 [facility] RBC morphologyOrdered By: George Silvestre on 11-10-2023 RBC morphology finding Nom (Bld) NORM C+C NORMAL NORM C&C [facility] Review by pathologistOrdered By: Michell Silvestre on 11-10-2023 Pathologist review Camilo (Unsp spec) [Interp] Reviewed [facility] Comment on above: Previous reported re sult: December vani Edited by: JALEN on 11/11/23:0933Neutrophilic left shift.Normocytic anemia.Clinical correlation necessary.Max Muniz M.D. 11/11/23 Serum or plasma calcium javad urement (mass/volume)Ordered By: Michell Silvestre on 11-10-2023 Calcium [Mass/Vol] 8.7 mg/dL 8.5-10.1 [facility] Serum or plasma creatinine m easurement (mass/volume)Ordered By: Michell Silvestre on 11-10-2023 Creatinine [Mass/Vol] 0.86 mg/dL 0.55-1.02 [facility] Comment on above: The validity of the calculated GFR & GFRAA in patients over 70 years has not been determined. Clinical correlation is essential. Serum or plasma urea nitroge n measurement (mass/volume)Ordered By: Michell Silvestre on 11-10-2023 Urea nitrogen [Mass/Vol] 21 mg/dL 7-18 [facility] Thin prep Papanicolaou smear with manual screeningOrdered By: Michell Silvestre on 11-10-2023 Thin prep Papanicolaou smear with manual screening 6 5-15 [facility] Total cell countOrdered By: Michell Silvestre on 11-10-2023 Cells counted Molgen (Bld/Tiss) [#] [address] [facility] Absolute lymphocyte countOrd ered By: Michell Silvestre on 11-03-2023 Lymphocytes Auto (Unsp spec) [#/Vol] 1.10 10*3/uL 0.83-4.51 [facility] Automated lymphocyte count a s percentage of total leukocytesOrdered By: Michell Silvestre on 11-03-2023 Lymphocytes/100 WBC Auto (Unsp spec) BARREL [facility] Comment on above: Previous reported re sult: 15.4 %Edited by: MALLORY on 11/03/23:918 Basophil percentageOrdered B y: Michell Silvestre on 11-03-2023 Basophil percentage BARREL LEVELER [facility] Comment on above: Previous reported re sult: 57.6 %Edited by: MALLORY on 11/03/23:918 Previous reported re sult: 10.9 %Edited by: MALLORY on 11/03/23:918 Previous reported re sult: 7.3 %Edited by: MALLORY on 11/03/23:918 Previous reported re sult: 1.1 %Edited by: MALLORY on 11/03/23:918 Chloride [Moles/Vol] 104 mmol/L 98-107 [facility] Glucose [Mass/Vol] 70 mg/dL 74-106 [facility] Hemoglobin (Bld) [Mass/Vol] 9.3 g/dL 12.0-15.0 [facility] Neutrophils (Bld) [#/Vol] 4.1 10*3/uL 2.0-7.7 [facility] Potassium [Moles/Vol] 4.0 mmol/L 3.5-5.1 [facility] Sodium [Moles/Vol] 136 mmol/L 136-145 [facility] WBC (Bld) [#/Vol] 7.1 10*3/uL 4.4-11.0 [facility] Blood band neutrophil count as percentage of total leukocytesOrdered By: Michell Silvestre on 11-03-2023 Band form neutrophils/100 WBC (Bld) 5 % 0-5 [facility] Blood basophils/100 leukocyt esOrdered By: Michell Silvestre on 11-03-2023 Basophils/100 WBC (Bld) 1 % 0-1 [facility] Blood eosinophils/100 leukoc ytesOrdered By: Efewongbe Elsye on 11-03-2023 Eosinophils/100 WBC (Bld) 5 % 0-5 [facility] Blood lymphocytes/100 leukoc ytesOrdered By: Efewongbe Elsye on 11-03-2023 Lymphocytes/100 WBC (Bld) 16 % 19-41 [facility] Blood metamyelocytes/100 alona kocytesOrdered By: Efewongbe Elsye on 11-03-2023 Metamyelocytes/100 WBC (Bld) 2 % 0-1 [facility] Blood monocytes/100 leukocyt esOrdered By: Efflora Chine on 11-03-2023 Monocytes/100 WBC (Bld) 10 % 0-10 [facility] Blood platelet adequacy dete ction by light microscopyOrdered By: Michell Silvestre on 11-03-2023 Platelets LM Ql (Bld) ADEQUATE ADEQ [facility] Blood polychromasia detectio n by light microscopyOrdered By: Michell Silvestre on 11-03-2023 Polychromasia LM Ql (Bld) 1+ [facility] Blood segmented neutrophils/ 100 leukocytesOrdered By: Michell Silvestre on 11-03-2023 Segmented neutrophils/100 WBC (Bld) 58 % 47-70 [facility] Determination of erythrocyte mean corpuscular volume (MCV)Ordered By: Michell Silvestre on 11-03-2023 MCV (RBC) [Entitic vol] 82.0 fL 81-99 [facility] Erythrocyte distribution wid th ratioOrdered By: Michell Silvestre on 11-03-2023 Erythrocyte distribution width (RBC) [Ratio] 16.8 % 11.6-14.6 [facility] Erythrocyte distribution wid th standard deviationOrdered By: Michell Silvestre on 11-03-2023 Erythrocyte distribution width (RBC) [Entitic vol] 49.4 fL 35.1-43.9 [facility] Hematocrit Auto (Bld) [Volum e fraction]Ordered By: Michell Silvestre on 11-03-2023 Hematocrit (Bld) [Volume fraction] 31.4 % 37-47 [facility] Immature granulocytes/100 WB C Auto (Bld)Ordered By: Michell Silvestre on 11-03-2023 Immature granulocytes/100 WBC (Bld) BARREL [facility] Comment on above: Previous reported re sult: 7.700 %Edited by: MALLORY on 11/03/23:0919IG% - Immature Granulocytes (promyelocytes, myelocytes and metamyelocytes) > 1% indicates that a LEFT SHIFT is Present. Laboratory - Chemistry and C hemistry - challengeOrdered By: flora Silvestre on 11-03-2023 CO2 [Moles/Vol] 24.0 mmol/L 21.0-32.0 [facility] Urea nitrogen/Creatinine [Mass ratio] 9.9 mg/mg 10-20 [facility] Laboratory - Hematology and Cell countsOrdered By: Michell Silvestre on 11-03-2023 Anisocytosis Ql (Bld) 2+ [facility] MCH (RBC) [Entitic mass] 24.3 pg 27.0-32.0 [facility] MCHC (RBC) [Mass/Vol] 29.6 g/dL 32-36 [facility] Myelocytes/100 WBC (Bld) 3 % 0-0 [facility] Nucleated RBC/100 WBC (Bld) [Ratio] 0 % 0-5 [facility] Platelet mean volume (Bld) [Entitic vol] 9.2 fL 6.2-12.0 [facility] Platelets (Bld) [#/Vol] 242 10*3/uL 150-450 [facility] No Panel InformationOrdered By: Michell Silvestre on 11-03-2023 Estimated GFR (MDRD) Amer 62 mL/min >60 [facility] Comment on above: GFR Calc Estimated GFR (MDRD) Non-Af Amer 51 mL/min >60 [facility] Comment on above: Non- GFR Calc Ovalocyte detectionOrdered B y: Michell Silvestre on 11-03-2023 Ovalocytes LM Ql (Bld) 2+ [facility] RBC Auto (Bld) [#/Vol]Ordere d By: Michell Silvestre on 11-03-2023 RBC (Bld) [#/Vol] 3.83 10*6/uL 4.2-5.4 [facility] Review by pathologistOrdered By: Michell Silvestre on 11-03-2023 Pathologist review Camilo (Unsp spec) [Interp] Reviewed [facility] Comment on above: Normocytic anemia.Ba nd form WBCs present.Clinical correlation suggested.Thomas Cox D.O. 11/04/23Previous reported result: Reviewed Edited by: LISA on 11/04/23:1603 AMENDED REPORT 11/04/23 1603 PATH REV previously reported as: Reviewed Serum or plasma calcium javad urement (mass/volume)Ordered By: Michell Silvestre on 11-03-2023 Calcium [Mass/Vol] 8.7 mg/dL 8.5-10.1 [facility] Serum or plasma creatinine m easurement (mass/volume)Ordered By: Michell Silvestre on 11-03-2023 Creatinine [Mass/Vol] 1.11 mg/dL 0.55-1.02 [facility] Comment on above: The validity of the calculated GFR & GFRAA in patients over 70 years has not been determined. Clinical correlation is essential. Serum or plasma urea nitroge n measurement (mass/volume)Ordered By: Michell Silvestre on 11-03-2023 Urea nitrogen [Mass/Vol] 11 mg/dL 7-18 [facility] Thin prep Papanicolaou smear with manual screeningOrdered By: Michell Silvestre on 11-03-2023 Thin prep Papanicolaou smear with manual screening 8 5-15 [facility] Total cell countOrdered By: Michell Silvestre on 11-03-2023 Cells counted Molgen (Bld/Tiss) [#] [address] [facility] Absolute lymphocyte countOrd ered By: Michell Silvestre on 10-27-2023 Lymphocytes Auto (Unsp spec) [#/Vol] 0.89 10*3/uL 0.83-4.51 [facility] Automated lymphocyte count a s percentage of total leukocytesOrdered By: Michell Silvestre on 10-27-2023 Lymphocytes/100 WBC Auto (Unsp spec) 14.5 % 19-41 [facility] Basophil percentageOrdered B y: Anjelicaseantejas Silvestre on 10-27-2023 Basophils/100 WBC (Bld) 0.7 % 0-1 [facility] Chloride [Moles/Vol] 106 mmol/L 98-107 [facility] Eosinophils/100 WBC (Bld) 8.2 % 0-5 [facility] Glucose [Mass/Vol] 120 mg/dL 74-106 [facility] Comment on above: Fasting Glucose resu lt from 100 to 125 mg/dL suggests IMPAIRED HOMEOSTASIS per A.D.A. criteria. Hemoglobin (Bld) [Mass/Vol] 9.5 g/dL 12.0-15.0 [facility] Monocytes/100 WBC (Bld) 10.6 % 0-10 [facility] Neutrophils (Bld) [#/Vol] 3.7 10*3/uL 2.0-7.7 [facility] Neutrophils/100 WBC (Bld) 60.3 % 47-70 [facility] Potassium [Moles/Vol] 4.2 mmol/L 3.5-5.1 [facility] Sodium [Moles/Vol] 138 mmol/L 136-145 [facility] WBC (Bld) [#/Vol] 6.1 10*3/uL 4.4-11.0 [facility] Determination of erythrocyte mean corpuscular volume (MCV)Ordered By: Michell Silvestre on 10-27-2023 MCV (RBC) [Entitic vol] 82.3 fL 81-99 [facility] Erythrocyte distribution wid th ratioOrdered By: arabellamccauslandtejas Silvestre on 10-27-2023 Erythrocyte distribution width (RBC) [Ratio] 16.7 % 11.6-14.6 [facility] Erythrocyte distribution wid th standard deviationOrdered By: Anjelicamccauslandtejas Silvestre on 10-27-2023 Erythrocyte distribution width (RBC) [Entitic vol] 50.2 fL 35.1-43.9 [facility] Hematocrit Auto (Bld) [Volum e fraction]Ordered By: Michell Silvestre on 10-27-2023 Hematocrit (Bld) [Volume fraction] 31.1 % 37-47 [facility] Immature granulocytes/100 WB C Auto (Bld)Ordered By: Michell Silvestre on 10-27-2023 Immature granulocytes/100 WBC (Bld) 5.700 % 0.0-0.9 [facility] Comment on above: IG% - Immature Granu locytes (promyelocytes, myelocytes and metamyelocytes) > 1% indicates that a LEFT SHIFT is Present. Laboratory - Chemistry and C hemistry - challengeOrdered By: Michell Silvestre on 10-27-2023 CO2 [Moles/Vol] 25.0 mmol/L 21.0-32.0 [facility] Urea nitrogen/Creatinine [Mass ratio] 9.4 mg/mg 10-20 [facility] Laboratory - Hematology and Cell countsOrdered By: Michell Silvestre on 10-27-2023 MCH (RBC) [Entitic mass] 25.1 pg 27.0-32.0 [facility] MCHC (RBC) [Mass/Vol] 30.5 g/dL 32-36 [facility] Nucleated RBC/100 WBC (Bld) [Ratio] 0 % 0-5 [facility] Platelet mean volume (Bld) [Entitic vol] 9.8 fL 6.2-12.0 [facility] Platelets (Bld) [#/Vol] 268 10*3/uL 150-450 [facility] No Panel InformationOrdered By: Michell Silvestre on 10-27-2023 Estimated GFR (MDRD) Amer 74 mL/min >60 [facility] Comment on above: GFR Calc Estimated GFR (MDRD) Non-Af Amer 61 mL/min >60 [facility] Comment on above: Non- GFR Calc RBC Auto (Bld) [#/Vol]Ordere d By: Michell Silvestre on 10-27-2023 RBC (Bld) [#/Vol] 3.78 10*6/uL 4.2-5.4 [facility] Serum or plasma calcium javad urement (mass/volume)Ordered By: Michell Silvestre on 10-27-2023 Calcium [Mass/Vol] 8.7 mg/dL 8.5-10.1 [facility] Serum or plasma creatinine m easurement (mass/volume)Ordered By: Michell Silvestre on 10-27-2023 Creatinine [Mass/Vol] 0.95 mg/dL 0.55-1.02 [facility] Comment on above: The validity of the calculated GFR & GFRAA in patients over 70 years has not been determined. Clinical correlation is essential. Serum or plasma urea nitroge n measurement (mass/volume)Ordered By: Michell Silvestre on 10-27-2023 Urea nitrogen [Mass/Vol] 9 mg/dL 7-18 [facility] Thin prep Papanicolaou smear with manual screeningOrdered By: flora Silvestre on 10-27-2023 Thin prep Papanicolaou smear with manual screening 7 5-15 [facility] Basophil percentageOrdered B y: Michell Silvestre on 10-24-2023 Potassium [Moles/Vol] 3.4 mmol/L 3.5-5.1 [facility] Clostridioides difficile nuc leic acid assay by PCROrdered By: Michell Silvestre on 10-21-2023 C. difficile DNA MARLO+probe Ql (Unsp spec) [facility] Absolute lymphocyte countOrd ered By: Michell Silvestre on 10-20-2023 Lymphocytes Auto (Unsp spec) [#/Vol] 0.73 10*3/uL 0.83-4.51 [facility] Automated lymphocyte count a s percentage of total leukocytesOrdered By: Michell Silvestre on 10-20-2023 Lymphocytes/100 WBC Auto (Unsp spec) 10.2 % 19-41 [facility] Basophil percentageOrdered B y: Michell Silvestre on 10-20-2023 Basophils/100 WBC (Bld) 0.6 % 0-1 [facility] Bilirubin [Mass/Vol] 0.60 mg/dL 0.20-1.00 [facility] Comment on above: For patients on eltr ombopag therapy, use of Dimension [place] TBIL is not recommended. Chloride [Moles/Vol] 113 mmol/L 98-107 [facility] Cholesterol [Mass/Vol] 71 mg/dL <200 [facility] Comment on above: <200 mg/dL Desirable 200-240 mg/dL Borderline >240 mg/dL High Risk Eosinophils/100 WBC (Bld) 2.9 % 0-5 [facility] Glucose [Mass/Vol] 163 mg/dL 74-106 [facility] Comment on above: Fasting Glucose resu lt greater than or equal to 126 mg/dL suggests DIABETES MELLITUS per A.D.A. criteria. Hemoglobin (Bld) [Mass/Vol] 9.1 g/dL 12.0-15.0 [facility] Monocytes/100 WBC (Bld) 7.0 % 0-10 [facility] Neutrophils (Bld) [#/Vol] 5.6 10*3/uL 2.0-7.7 [facility] Neutrophils/100 WBC (Bld) 78.0 % 47-70 [facility] Potassium [Moles/Vol] 2.9 mmol/L 3.5-5.1 [facility] Protein [Mass/Vol] 5.3 g/dL 6.4-8.2 [facility] Sodium [Moles/Vol] 141 mmol/L 136-145 [facility] Triglyceride [Mass/Vol] 163 mg/dL <199 [facility] Comment on above: The drugs N-Acetylcy steine and Metamizole may falsely depress this assay.Serum Triglycerides Reference Interval Normal <150 mg/dL Borderline high 150 - 199 mg/dL High 200 - 499 mg/dL Very High > or = 500 mg/dL WBC (Bld) [#/Vol] 7.2 10*3/uL 4.4-11.0 [facility] Determination of erythrocyte mean corpuscular volume (MCV)Ordered By: Michell Silvestre on 10-20-2023 MCV (RBC) [Entitic vol] 83.7 fL 81-99 [facility] Erythrocyte distribution wid th ratioOrdered By: Anjelicamccauslandtejas Silvestre on 10-20-2023 Erythrocyte distribution width (RBC) [Ratio] 17.0 % 11.6-14.6 [facility] Erythrocyte distribution wid th standard deviationOrdered By: arabellamccauslandtejas Silvestre on 10-20-2023 Erythrocyte distribution width (RBC) [Entitic vol] 51.6 fL 35.1-43.9 [facility] Hematocrit Auto (Bld) [Volum e fraction]Ordered By: Michell Silvestre on 10-20-2023 Hematocrit (Bld) [Volume fraction] 30.3 % 37-47 [facility] Immature granulocytes/100 WB C Auto (Bld)Ordered By: [facility] on 10-20-2023 Immature granulocytes/100 WBC (Bld) 1.300 % 0.0-0.9 [facility] Comment on above: IG% - Immature Granu locytes (promyelocytes, myelocytes and metamyelocytes) > 1% indicates that a LEFT SHIFT is Present. Laboratory - Chemistry and C hemistry - challengeOrdered By: Michell Silvestre on 10-20-2023 Albumin/Globulin [Mass ratio] 0.4 {ratio} 0.9-2.4 [facility] ALP [Catalytic activity/Vol] 111 U/L 45-117 [facility] ALT [Catalytic activity/Vol] 13 U/L 13-56 [facility] Cholesterol in HDL [Mass/Vol] 14 mg/dL >40 [facility] Comment on above: The drugs N-Acetylcy steine and Metamizole may falsely depress this assay. Reference Range HDL <40 mg/dL Low HDL Cholesterol HDL >or= 60 mg/dL High HDL Cholesterol Cholesterol in LDL [Mass/Vol] 24 mg/dL 0-130 [facility] CO2 [Moles/Vol] 22.0 mmol/L 21.0-32.0 [facility] Globulin (S) [Mass/Vol] 3.8 g/dL 2.2-4.2 [facility] Urea nitrogen/Creatinine [Mass ratio] 10.8 mg/mg 10-20 [facility] Laboratory - Hematology and Cell countsOrdered By: arabellamccauslandtejas Silvestre on 10-20-2023 MCH (RBC) [Entitic mass] 25.1 pg 27.0-32.0 [facility] MCHC (RBC) [Mass/Vol] 30.0 g/dL 32-36 [facility] Nucleated RBC/100 WBC (Bld) [Ratio] 0 % 0-5 [facility] Platelet mean volume (Bld) [Entitic vol] 11.9 fL 6.2-12.0 [facility] Platelets (Bld) [#/Vol] 163 10*3/uL 150-450 [facility] No Panel InformationOrdered By: Michell Silvestre on 10-20-2023 Estimated GFR (MDRD) Amer 87 mL/min >60 [facility] Comment on above: GFR Calc Estimated GFR (MDRD) Non-Af Amer 72 mL/min >60 [facility] Comment on above: Non- GFR Calc Levetiracetam (Keppra) Level 4.7 ug/mL 10.0-40.0 [facility] Comment on above: Performed at: [facility] [employer] [address] [id number] Director: Michael Villatoro MD, Phone: [phone] VLDL Cholesterol 33 mg/dL 5-40 [facility] RBC Auto (Bld) [#/Vol]Ordere d By: Michell Silvestre on 10-20-2023 RBC (Bld) [#/Vol] 3.62 10*6/uL 4.2-5.4 [facility] Serum or plasma calcium javad urement (mass/volume)Ordered By: Michell Silvestre on 10-20-2023 Calcium [Mass/Vol] 8.3 mg/dL 8.5-10.1 [facility] Serum or plasma creatinine m easurement (mass/volume)Ordered By: Michell Silvestre on 10-20-2023 Creatinine [Mass/Vol] 0.83 mg/dL 0.55-1.02 [facility] Comment on above: The validity of the calculated GFR & GFRAA in patients over 70 years has not been determined. Clinical correlation is essential. Serum or plasma urea nitroge n measurement (mass/volume)Ordered By: Michell Silvestre on 10-20-2023 Urea nitrogen [Mass/Vol] 9 mg/dL 7-18 [facility] Thin prep Papanicolaou smear with manual screeningOrdered By: Michell Silvestre on 10-20-2023 Thin prep Papanicolaou smear with manual screening 1.5 g/dL 3.2-5.0 [facility] Thin prep Papanicolaou smear with manual screening 18 U/L 15-37 [facility] Thin prep Papanicolaou smear with manual screening 6 5-15 [facility] Whole blood hemoglobin A1c/t otal hemoglobin ratio (mass fraction)Ordered By: Michell Silvestre on 10-20-2023 HbA1c (Bld) [Mass fraction] 7.3 % 3.8-5.6 [facility] Comment on above: Normal < 5.7 % Predi abetic 5.7 - 6.4 % Diabetic >or= 6.5 % Please note range changes. Absolute lymphocyte countOrd ered By: Viry Boyce on 10-18-2023 Lymphocytes Auto (Unsp spec) [#/Vol] 0.74 10*3/uL 0.83-4.51 [facility] Automated lymphocyte count a s percentage of total leukocytesOrdered By: Viry Boyce on 10-18-2023 Lymphocytes/100 WBC Auto (Unsp spec) 7.8 % 19-41 [facility] Basophil percentageOrdered B y: Viry Floresnury on 10-18-2023 Basophils/100 WBC (Bld) 0.5 % 0-1 [facility] Chloride [Moles/Vol] 112 mmol/L 98-107 [facility] Eosinophils/100 WBC (Bld) 3.0 % 0-5 [facility] Glucose [Mass/Vol] 171 mg/dL 74-106 [facility] Comment on above: Fasting Glucose resu lt greater than or equal to 126 mg/dL suggests DIABETES MELLITUS per A.D.A. criteria. Hemoglobin (Bld) [Mass/Vol] 9.9 g/dL 12.0-15.0 [facility] Monocytes/100 WBC (Bld) 6.3 % 0-10 [facility] Neutrophils (Bld) [#/Vol] 7.7 10*3/uL 2.0-7.7 [facility] Neutrophils/100 WBC (Bld) 81.1 % 47-70 [facility] Potassium [Moles/Vol] 3.3 mmol/L 3.5-5.1 [facility] Sodium [Moles/Vol] 141 mmol/L 136-145 [facility] WBC (Bld) [#/Vol] 9.5 10*3/uL 4.4-11.0 [facility] COVID-19 virus antigen assay Ordered By: Viry Boyce on 10-18-2023 SARS-CoV-2 (COVID-19) Ag IA.rapid Ql (Resp) [facility] SARS-CoV-2 (COVID-19) Ag IA.rapid Ql (Resp) [facility] Determination of erythrocyte mean corpuscular volume (MCV)Ordered By: Viry Boyce on 10-18-2023 MCV (RBC) [Entitic vol] 84.1 fL 81-99 [facility] Erythrocyte distribution wid th ratioOrdered By: [facility] Erythrocyte distribution width (RBC) [Ratio] 17.2 % 11.6-14.6 [facility] Erythrocyte distribution wid th standard deviationOrdered By: [facility] on 10-18-2023 Erythrocyte distribution width (RBC) [Entitic vol] 52.6 fL 35.1-43.9 [facility] Hematocrit Auto (Bld) [Volum e fraction]Ordered By: Viry Boyce on 10-18-2023 Hematocrit (Bld) [Volume fraction] 33.8 % 37-47 [facility] Immature granulocytes/100 WB C Auto (Bld)Ordered By: [facility] on 10-18-2023 Immature granulocytes/100 WBC (Bld) 1.300 % 0.0-0.9 [facility] Comment on above: IG% - Immature Granu locytes (promyelocytes, myelocytes and metamyelocytes) > 1% indicates that a LEFT SHIFT is Present. Laboratory - Chemistry and C hemistry - challengeOrdered By: Viry Boyce on 10-18-2023 CO2 [Moles/Vol] 24.0 mmol/L 21.0-32.0 [facility] Urea nitrogen/Creatinine [Mass ratio] 25.4 mg/mg 10-20 [facility] Laboratory - Hematology and Cell countsOrdered By: Viry Boyce on 10-18-2023 MCH (RBC) [Entitic mass] 24.6 pg 27.0-32.0 [facility] MCHC (RBC) [Mass/Vol] 29.3 g/dL 32-36 [facility] Nucleated RBC/100 WBC (Bld) [Ratio] 0 % 0-5 [facility] Platelet mean volume (Bld) [Entitic vol] 11.5 fL 6.2-12.0 [facility] Platelets (Bld) [#/Vol] 145 10*3/uL 150-450 [facility] No Panel InformationOrdered By: Viry Boyce on 10-18-2023 Estimated Creatinine Clearance Calc 55.65 ml/min [facility] Estimated GFR (MDRD) Amer 75 mL/min >60 [facility] Comment on above: GFR Calc Estimated GFR (MDRD) Non-Af Amer 62 mL/min >60 [facility] Comment on above: Non- GFR Calc RBC Auto (Bld) [#/Vol]Ordere d By: Viry Boyce on 10-18-2023 RBC (Bld) [#/Vol] 4.02 10*6/uL 4.2-5.4 [facility] Serum or plasma calcium javad urement (mass/volume)Ordered By: Viry Boyce on 10-18-2023 Calcium [Mass/Vol] 8.0 mg/dL 8.5-10.1 [facility] Serum or plasma creatinine m easurement (mass/volume)Ordered By: Viry Boyce on 10-18-2023 Creatinine [Mass/Vol] 0.95 mg/dL 0.55-1.02 [facility] Comment on above: The validity of the calculated GFR & GFRAA in patients over 70 years has not been determined. Clinical correlation is essential. Serum or plasma urea nitroge n measurement (mass/volume)Ordered By: Viry Boyce on 10-18-2023 Urea nitrogen [Mass/Vol] 24 mg/dL 7-18 [facility] Thin prep Papanicolaou smear with manual screeningOrdered By: Viry Boyce on 10-18-2023 Thin prep Papanicolaou smear with manual screening 250 mg/dL 74-106 [facility] Comment on above: MANAGEMENT OF PATIEN T CARE PER NURSING PROTOCOL Thin prep Papanicolaou smear with manual screening 5 5-15 [facility] Laboratory - Chemistry and C hemistry - challengeOrdered By: Viry Boyce on 10-15-2023 CK [Catalytic activity/Vol] 332 U/L 26-192 [facility] Blood manual differential co mment interpretation (narrative result)Ordered By: Viry Boyce on 10-14-2023 Manual differential comment Camilo (Bld) [Interp] SCANNED [facility] Review by pathologistOrdered By: Viry Boyce on 10-14-2023 Pathologist review Camilo (Unsp spec) [Interp] Reviewed [facility] Comment on above: Previous reported re sult: Jinny vani Edited by: RGOOD on 10/17/23:1422Neutrophilic leukocytosis.Clinical correlation necessary.Max Mnuiz M.D. 10/17/23 AMENDED REPORT 10/17/23 1422 PATH REV previously reported as: Jinny ludwig Basophil percentageOrdered B y: Elayne Baker on 10-13-2023 Bilirubin [Mass/Vol] 0.60 mg/dL 0.20-1.00 [facility] Comment on above: For patients on eltr ombopag therapy, use of Dimension [place] TBIL is not recommended. Protein [Mass/Vol] 6.2 g/dL 6.4-8.2 [facility] Laboratory - Chemistry and C hemistry - challengeOrdered By: Elayne Baker on 10-13-2023 Albumin/Globulin [Mass ratio] 0.5 {ratio} 0.9-2.4 [facility] ALP [Catalytic activity/Vol] 135 U/L 45-117 [facility] ALT [Catalytic activity/Vol] 24 U/L 13-56 [facility] Globulin (S) [Mass/Vol] 4.1 g/dL 2.2-4.2 [facility] Magnesium [Mass/Vol] 3.5 mg/dL 1.6-2.6 [facility] Thin prep Papanicolaou smear with manual screeningOrdered By: Elayne Baker on 10-13-2023 Thin prep Papanicolaou smear with manual screening 2.1 g/dL 3.2-5.0 [facility] Thin prep Papanicolaou smear with manual screening 51 U/L 15-37 [facility] Absolute lymphocyte countOrd ered By: Cesar Palencia on 10-12-2023 Lymphocytes Auto (Unsp spec) [#/Vol] 1.02 10*3/uL 0.83-4.51 [facility] Activated partial thrombopla stin time (aPTT) in platelet poor plasma by coagulation aOrdered By: Cesar Palencia on 10-12-2023 aPTT Coag (PPP) [Time] 32.8 s 24.1-36.2 [facility] Automated lymphocyte count a s percentage of total leukocytesOrdered By: Cesar Palencia on 10-12-2023 Lymphocytes/100 WBC Auto (Unsp spec) 5.9 % 19-41 [facility] Basophil percentageOrdered B y: Elayne Baker on 10-12-2023 Bilirubin [Mass/Vol] 0.70 mg/dL 0.20-1.00 [facility] Comment on above: For patients on eltr ombopag therapy, use of Dimension [place] TBIL is not recommended. Chloride [Moles/Vol] 122 mmol/L 98-107 [facility] Glucose [Mass/Vol] 294 mg/dL 74-106 [facility] Comment on above: Glucose result great er than or equal to 200 mg/dLsuggests DIABETES MELLITUS per A.D.A. criteria. Potassium [Moles/Vol] 3.3 mmol/L 3.5-5.1 [facility] Comment on above: Slight Hemolysis, Re sult may be falsely increased. Protein [Mass/Vol] 6.9 g/dL 6.4-8.2 [facility] Sodium [Moles/Vol] 151 mmol/L 136-145 [facility] Basophil percentageOrdered B y: Cesar Palencia on 10-12-2023 Lactate [Moles/Vol] 2.0 mmol/L 0.4-2.0 [facility] Comment on above: Critical Result(s) C alled at: 19:31:23 10/12/2023 by: PRASHANT CHAKRABORTY TO DILEEP. Results read back by same. Basophil percentage 0 SEEN /hpf 0-5 [facility] Basophils/100 WBC (Bld) 0.2 % 0-1 [facility] Eosinophils/100 WBC (Bld) 0.2 % 0-5 [facility] Hemoglobin (Bld) [Mass/Vol] 15.1 g/dL 12.0-15.0 [facility] Monocytes/100 WBC (Bld) 8.5 % 0-10 [facility] Neutrophils (Bld) [#/Vol] 14.7 10*3/uL 2.0-7.7 [facility] Neutrophils/100 WBC (Bld) 84.5 % 47-70 [facility] WBC (Bld) [#/Vol] 17.4 10*3/uL 4.4-11.0 [facility] Bilirubin Test strip Ql (U)O rdered By: Cesar Palencia on 10-12-2023 Bilirubin Ql (U) 1 mg/dL Negative [facility] Comment on above: COLOR OF URINE MAY A FFECT DIPSTICK RESULTS. Culture, urineOrdered By: Caren Palencia on 10-12-2023 Bacteria identified Cx Nom (U) Escherichia coli [facility] Bacteria identified Cx Nom (U) Escherichia coli [facility] Determination of erythrocyte mean corpuscular volume (MCV)Ordered By: Cesar Palencia on 10-12-2023 MCV (RBC) [Entitic vol] 80.2 fL 81-99 [facility] Erythrocyte distribution wid th ratioOrdered By: Cesar Palencia on 10-12-2023 Erythrocyte distribution width (RBC) [Ratio] 18.6 % 11.6-14.6 [facility] Erythrocyte distribution wid th standard deviationOrdered By: Cesar Palencia on 10-12-2023 Erythrocyte distribution width (RBC) [Entitic vol] 50.1 fL 35.1-43.9 [facility] Hematocrit Auto (Bld) [Volum e fraction]Ordered By: Cesar Palencia on 10-12-2023 Hematocrit (Bld) [Volume fraction] 48.3 % 37-47 [facility] Immature granulocytes/100 WB C Auto (Bld)Ordered By: Cesar Palencia on 10-12-2023 Immature granulocytes/100 WBC (Bld) 0.700 % 0.0-0.9 [facility] Comment on above: IG% - Immature Granu locytes (promyelocytes, myelocytes and metamyelocytes) > 1% indicates that a LEFT SHIFT is Present. Ketones Test strip Ql (U)Ord ered By: Cesar Palencia on 10-12-2023 Ketones Ql (U) 5 mg/dl Negative [facility] Laboratory - Chemistry and C hemistry - challengeOrdered By: Elayne Baker on 02-21-2024 Albumin/Globulin [Mass ratio] 0.5 {ratio} 0.9-2.4 [facility] ALP [Catalytic activity/Vol] 138 U/L 45-117 [facility] ALT [Catalytic activity/Vol] 26 U/L 13-56 [facility] CO2 [Moles/Vol] 21.0 mmol/L 21.0-32.0 [facility] Globulin (S) [Mass/Vol] 4.5 g/dL 2.2-4.2 [facility] Urea nitrogen/Creatinine [Mass ratio] 49.4 mg/mg 10-20 [facility] Magnesium [Mass/Vol] 4.1 mg/dL 1.6-2.6 [facility] Comment on above: Slight Hemolysis, Re sult may be falsely increased. Laboratory - Chemistry and C hemistry - challengeOrdered By: Cesar Palencia on 10-12-2023 CK [Catalytic activity/Vol] 981 U/L 26-192 [facility] Laboratory - CoagulationOrde red By: Cesar Palencia on 10-12-2023 INR Coag (Bld) [Relative time] 1.9 {INR} [facility] PT Coag (PPP) [Time] 22.4 s 11.7-14.9 [facility] Laboratory - Hematology and Cell countsOrdered By: Cesar Palencia on 10-12-2023 MCH (RBC) [Entitic mass] 25.1 pg 27.0-32.0 [facility] MCHC (RBC) [Mass/Vol] 31.3 g/dL 32-36 [facility] Nucleated RBC/100 WBC (Bld) [Ratio] 0 % 0-5 [facility] Platelet mean volume (Bld) [Entitic vol] 11.4 fL 6.2-12.0 [facility] Platelets (Bld) [#/Vol] 372 10*3/uL 150-450 [facility] Laboratory - Microbiology an d Antimicrobial susceptibilityOrdered By: Cesar Palencia on 10-12-2023 Bacteria identified Cx Nom (Bld) No growth in [address] [facility] Bacteria identified Cx Nom (Bld) No growth in [address] [facility] Mucus LM Ql (Urine sed)Order ed By: Cesar Palencia on 02-21-2024 Mucus Ql (Urine sed) 0 SEEN /hpf [facility] Nitrite Test strip Ql (U)Ord ered By: Cesar Palencia on 10-12-2023 Nitrite Ql (U) Negative Negative [facility] No Panel InformationOrdered By: Elayne Baker on 10-12-2023 Estimated Creatinine Clearance Calc 20.82 ml/min [facility] Estimated GFR (MDRD) Amer 23 mL/min >60 [facility] Comment on above: GFR Calc Estimated GFR (MDRD) Non-Af Amer 19 mL/min >60 [facility] Comment on above: Non- GFR Calc No Panel InformationOrdered By: Cesar Palencia on 10-12-2023 Urine RBC 0-5 SEEN /hpf 0-5 [facility] Troponin I High Sensitivity 60 pg/mL 3.0-54.0 [facility] Comment on above: Please Note: New Karlie t Units and Gender Specific Reference Ranges. For more information see Policy Stat Procedure [place] High Sensitivity Troponin (TNIH) and attachments. Protein Test strip Ql (U)Ord ered By: Cesar Palencia on 10-12-2023 Protein Ql (U) 15 mg/dl Negative [facility] RBC Auto (Bld) [#/Vol]Ordere d By: Cesar Palencia on 10-12-2023 RBC (Bld) [#/Vol] 6.02 10*6/uL 4.2-5.4 [facility] Serum or plasma calcium javad urement (mass/volume)Ordered By: Elayne Baker on 10-12-2023 Calcium [Mass/Vol] 9.7 mg/dL 8.5-10.1 [facility] Serum or plasma creatinine m easurement (mass/volume)Ordered By: Elayne Baker on 10-12-2023 Creatinine [Mass/Vol] 2.67 mg/dL 0.55-1.02 [facility] Comment on above: The validity of the calculated GFR & GFRAA in patients over 70 years has not been determined. Clinical correlation is essential. Serum or plasma urea nitroge n measurement (mass/volume)Ordered By: Elayne Baker on 10-12-2023 Urea nitrogen [Mass/Vol] 132 mg/dL 7-18 [facility] Comment on above: Critical Result(s) C alled at: 19:10:34 10/12/2023 by: Twila hong TO ANA. Results read back by same. Squamous epithelial cells de tection in urine sediment by light microscopyOrdered By: Cesar Palencia on 10-12-2023 Epithelial cells.squamous LM Ql (Urine sed) 0-5 SEEN /hpf 5-10 [facility] Thin prep Papanicolaou smear with manual screeningOrdered By: Elayne Baker on 10-12-2023 Thin prep Papanicolaou smear with manual screening 2.4 g/dL 3.2-5.0 [facility] Thin prep Papanicolaou smear with manual screening 54 U/L 15-37 [facility] Comment on above: Slight Hemolysis, Re sult may be falsely increased. Thin prep Papanicolaou smear with manual screening 8 5-15 [facility] Urine blood detectionOrdered By: Cesar Palencia on 10-12-2023 RBC Ql (U) 10 /ul Negative [facility] Urine clarityOrdered By: Jennyfer Palencia on 10-12-2023 Clarity (U) Clear Clear [facility] Urine color determinationOrd ered By: Cesar Palencia on 10-12-2023 Color (U) Yellow Yellow [facility] Urine glucose detectionOrder ed By: Cesar Palencia on 10-12-2023 Glucose Ql (U) 100 mg/dl Normal [facility] Urine leukocyte esterase det ection by dipstickOrdered By: Cesar Palencia on 10-12-2023 Leukocyte esterase Test strip Ql (U) 25 /ul Negative [facility] Urine pHOrdered By: Cesar hummel on 10-12-2023 pH (U) 5.0 [pH] 5.0 - 8.0 [facility] Urine sediment bacteria coun t by microscopy (number/high power field)Ordered By: Cesar Palencia on 10-12-2023 Bacteria LM.HPF (Urine sed) [#/Area] 0 /[HPF] None Seen [facility] Urine specific gravity measu rementOrdered By: Cesar Palencia on 10-12-2023 Specific gravity (U) [Rel density] 1.020 1.002-1.[address] [facility] Urine urobilinogen measureme ntOrdered By: Cesar Palencia on 10-12-2023 Urobilinogen Ql (U) Normal mg/dl Normal [facility] No Panel Informationon 07-20 [facility] SPIROMETRY BASELINE ONLYon 1 09-19-2022 DLCO (ml/min/mmHg) 19.28 ml/min/mmHg [facility] DLCO/VA (ml/min/mmHg/L) 4.46 ml/min/mmHg/L [facility] ERV BOX (L) 0.29 L [facility] [id number]% PRE (L/S) 1.11 L/S [facility] FEV1 PRE (L) 1.84 L [facility] FEV1/FVC PRE (%) 72 % [facility] FRC Box (L) 2.12 L [facility] FVC PRE (L) 2.55 L [facility] IC BOX (L) 2.27 L [facility] PEF PRE (L/S) 7.22 L/S [facility] RV Box (L) 2.09 L [facility] RV/TLC Box (%) 45 % [facility] TLC Box (L) 4.70 L [facility] VA (L) 4.32 L [facility] VC (L) BOX 2.77 L [facility] Absolute lymphocyte countOrd ered By: Ruel Ranney on 07-12-2023 Lymphocytes Auto (Unsp spec) [#/Vol] 1.29 10*3/uL 0.83-4.51 [facility] Basophil percentageOrdered B y: Ruel Makimonet on 07-12-2023 Basophils/100 WBC (Bld) 1.0 % 0-1 [facility] Chloride [Moles/Vol] 107 mmol/L 98-107 [facility] Eosinophils/100 WBC (Bld) 6.0 % 0-5 [facility] Glucose [Mass/Vol] 156 mg/dL 74-106 [facility] Comment on above: Fasting Glucose resu lt greater than or equal to 126 mg/dL suggests DIABETES MELLITUS per A.D.A. criteria. Neutrophils (Bld) [#/Vol] 5.5 10*3/uL 2.0-7.7 [facility] Neutrophils/100 WBC (Bld) 67.2 % 47-70 [facility] Potassium [Moles/Vol] 3.9 mmol/L 3.5-5.1 [facility] Sodium [Moles/Vol] 139 mmol/L 136-145 [facility] WBC (Bld) [#/Vol] 8.2 10*3/uL 4.4-11.0 [facility] Blood erythrocytes count (nu mber/volume)Ordered By: Ruel Peoples on 07-12-2023 RBC (Bld) [#/Vol] 5.10 10*6/uL 4.2-5.4 [facility] Blood hemoglobin measurement (mass/volume)Ordered By: Ruel Peoples on 07-12-2023 Hemoglobin (Bld) [Mass/Vol] 12.5 g/dL 12.0-15.0 [facility] Blood lymphocytes/100 leukoc ytesOrdered By: Ruel Peoples on 07-12-2023 Lymphocytes/100 WBC (Bld) 15.8 % 19-41 [facility] Blood monocytes/100 leukocyt esOrdered By: Ruel Peoples on 07-12-2023 Monocytes/100 WBC (Bld) 8.4 % 0-10 [facility] Blood platelet mean volumeOr dered By: Ruel Peoples on 07-12-2023 Platelet mean volume (Bld) [Entitic vol] 9.7 fL 6.2-12.0 [facility] Determination of erythrocyte mean corpuscular volume (MCV)Ordered By: Ruel Peoples on 07-12-2023 MCV (RBC) [Entitic vol] 82.0 fL 81-99 [facility] Hematocrit Auto (Bld) [Volum e fraction]Ordered By: Ruel Peoples on 07-12-2023 Hematocrit (Bld) [Volume fraction] 41.8 % 37-47 [facility] INR in Blood by Coagulation assayOrdered By: Ruel Peoples on 07-12-2023 INR Coag (Bld) [Relative time] 1.0 {INR} [facility] Laboratory - Chemistry and C hemistry - challengeOrdered By: Ruel Peoples on 07-12-2023 CO2 [Moles/Vol] 24.0 mmol/L 21.0-32.0 [facility] Urea nitrogen/Creatinine [Mass ratio] 19.6 mg/mg 10-20 [facility] Laboratory - CoagulationOrde red By: Ruel Peoples on 07-12-2023 aPTT Coag (Bld) [Time] 26.6 s 24.1-36.2 [facility] PT Coag (PPP) [Time] 13.3 s 11.7-14.9 [facility] Laboratory - Hematology and Cell countsOrdered By: Ruel Peoples on 07-12-2023 Erythrocyte distribution width (RBC) [Entitic vol] 49.6 fL 35.1-43.9 [facility] Erythrocyte distribution width (RBC) [Ratio] 16.7 % 11.6-14.6 [facility] Immature granulocytes/100 WBC (Bld) 1.600 % 0.0-0.9 [facility] Comment on above: IG% - Immature Granu locytes (promyelocytes, myelocytes and metamyelocytes) > 1% indicates that a LEFT SHIFT is Present. MCH (RBC) [Entitic mass] 24.5 pg 27.0-32.0 [facility] Nucleated RBC/100 WBC (Bld) [Ratio] 0 % 0-5 [facility] MCHC Auto (RBC) [Mass/Vol]Or dered By: Ruel Peoples on 07-12-2023 MCHC (RBC) [Mass/Vol] 29.9 g/dL 32-36 [facility] No Panel InformationOrdered By: Ruel Peoples on 07-12-2023 Estimated GFR (MDRD) Amer 83 mL/min >60 [facility] Comment on above: GFR Calc Estimated GFR (MDRD) Non-Af Amer 68 mL/min >60 [facility] Comment on above: Non- GFR Calc Vitamin D 25-Hydroxy 36.7 ng/mL [facility] Comment on above: Vitamin D 25(OH) Sta tus Range Deficiency <20 ng/mL (50nmol/L) Insufficiency 20 - 30 ng/mL (50 - 75 nmol/L) Sufficiency 30 - 100 ng/mL (75 - 250 nmol/L) Toxicity >100 ng/mL (>250 nmol/L) Platelets bldOrdered By: Aiden Peoples on 07-12-2023 Platelets (Bld) [#/Vol] 270 10*3/uL 150-450 [facility] Serum or plasma calcium javad urement (mass/volume)Ordered By: Ruel Peoples on 07-12-2023 Calcium [Mass/Vol] 9.3 mg/dL 8.5-10.1 [facility] Serum or plasma creatinine m easurement (mass/volume)Ordered By: Ruel Peoples on 07-12-2023 Creatinine [Mass/Vol] 0.87 mg/dL 0.55-1.02 [facility] Comment on above: The validity of the calculated GFR & GFRAA in patients over 70 years has not been determined. Clinical correlation is essential. Serum or plasma urea nitroge n measurement (mass/volume)Ordered By: Ruel Peoples on 07-12-2023 Urea nitrogen [Mass/Vol] 17 mg/dL 7-18 [facility] Thin prep Papanicolaou smear with manual screeningOrdered By: Ruel Peoples on 07-12-2023 Thin prep Papanicolaou smear with manual screening 8 -15 [facility] MRI LUMBAR SPINE WO IVCONon 05-31-2023 [facility] Basophil percentageOrdered B y: Barbara Beth on 05-26-2023 Bilirubin [Mass/Vol] 0.60 mg/dL 0.20-1.00 [facility] Comment on above: For patients on eltr ombopag therapy, use of Dimension [place] TBIL is not recommended. Cholesterol [Mass/Vol] 102 mg/dL <200 [facility] Comment on above: <200 mg/dL Desirable 200-240 mg/dL Borderline >240 mg/dL High Risk Protein [Mass/Vol] 6.9 g/dL 6.4-8.2 [facility] Triglyceride [Mass/Vol] 147 mg/dL <199 [facility] Comment on above: The drugs N-Acetylcy steine and Metamizole may falsely depress this assay.Serum Triglycerides Reference Interval Normal <150 mg/dL Borderline high 150 - 199 mg/dL High 200 - 499 mg/dL Very High > or = 500 mg/dL Direct bilirubinOrdered By: Barbara Beht on 05-26-2023 Bilirubin.direct [Mass/Vol] 0.18 mg/dL 0.00-0.30 [facility] Laboratory - Chemistry and C hemistry - challengeOrdered By: Barbara Beth on 05-26-2023 ALP [Catalytic activity/Vol] 79 U/L 45-117 [facility] ALT [Catalytic activity/Vol] 26 U/L 13-56 [facility] Globulin (S) [Mass/Vol] 3.7 g/dL 2.2-4.2 [facility] Serum or plasma albumin javad urement (mass/volume)Ordered By: Barbara Beth on 05-26-2023 Albumin [Mass/Vol] 3.2 g/dL 3.2-5.0 [facility] Serum or plasma cholesterol in HDL measurement (mass/volume)Ordered By: Barbara Beth on 05-26-2023 Cholesterol in HDL [Mass/Vol] 53 mg/dL >40 [facility] Comment on above: The drugs N-Acetylcy steine and Metamizole may falsely depress this assay. Reference Range HDL <40 mg/dL Low HDL Cholesterol HDL >or= 60 mg/dL High HDL Cholesterol Serum or plasma cholesterol in VLDL measurement (mass/volume)Ordered By: Barbara Beth on 05-26-2023 Cholesterol in VLDL [Mass/Vol] 29 mg/dL 5-40 [facility] Serum or plasma low density lipoprotein (LDL) cholesterol measurement (mass/volume)Ordered By: Barbara Beth on 05-26-2023 Cholesterol in LDL [Mass/Vol] 20 mg/dL 0-130 [facility] Thin prep Papanicolaou smear with manual screeningOrdered By: Barbara Beth on 05-26-2023 Thin prep Papanicolaou smear with manual screening 17 U/L 15-37 [facility] Absolute lymphocyte countOrd ered By: Floyd Bill on 05-10-2023 Lymphocytes Auto (Unsp spec) [#/Vol] 1.08 10*3/uL 0.83-4.51 [facility] Basophil percentageOrdered B y: Floyd Bill on 05-10-2023 Basophils/100 WBC (Bld) 0.9 % 0-1 [facility] Chloride [Moles/Vol] 109 mmol/L 98-107 [facility] Eosinophils/100 WBC (Bld) 7.7 % 0-5 [facility] Glucose [Mass/Vol] 186 mg/dL 74-106 [facility] Comment on above: Fasting Glucose resu lt greater than or equal to 126 mg/dL suggests DIABETES MELLITUS per A.D.A. criteria. Neutrophils (Bld) [#/Vol] 6.1 10*3/uL 2.0-7.7 [facility] Neutrophils/100 WBC (Bld) 69.5 % 47-70 [facility] Potassium [Moles/Vol] 3.5 mmol/L 3.5-5.1 [facility] Sodium [Moles/Vol] 141 mmol/L 136-145 [facility] WBC (Bld) [#/Vol] 8.7 10*3/uL 4.4-11.0 [facility] Blood erythrocytes count (nu mber/volume)Ordered By: Floyd Bill on 05-10-2023 RBC (Bld) [#/Vol] 4.78 10*6/uL 4.2-5.4 [facility] Blood hemoglobin measurement (mass/volume)Ordered By: Floyd Bill on 05-10-2023 Hemoglobin (Bld) [Mass/Vol] 12.0 g/dL 12.0-15.0 [facility] Blood lymphocytes/100 leukoc ytesOrdered By: Floyd Bill on 05-10-2023 Lymphocytes/100 WBC (Bld) 12.4 % 19-41 [facility] Blood monocytes/100 leukocyt esOrdered By: Floyd Bill on 05-10-2023 Monocytes/100 WBC (Bld) 8.0 % 0-10 [facility] Blood platelet mean volumeOr dered By: Floyd Bill on 05-10-2023 Platelet mean volume (Bld) [Entitic vol] 9.6 fL 6.2-12.0 [facility] Determination of erythrocyte mean corpuscular volume (MCV)Ordered By: Floyd Bill on 05-10-2023 MCV (RBC) [Entitic vol] 81.8 fL 81-99 [facility] Hematocrit Auto (Bld) [Volum e fraction]Ordered By: Floyd Bill on 05-10-2023 Hematocrit (Bld) [Volume fraction] 39.1 % 37-47 [facility] Laboratory - Chemistry and C hemistry - challengeOrdered By: Floyd Bill on 05-10-2023 CO2 [Moles/Vol] 29.0 mmol/L 21.0-32.0 [facility] Urea nitrogen/Creatinine [Mass ratio] 15.9 mg/mg 10-20 [facility] Laboratory - Hematology and Cell countsOrdered By: Floyd Bill on 05-10-2023 Erythrocyte distribution width (RBC) [Entitic vol] 48.3 fL 35.1-43.9 [facility] Erythrocyte distribution width (RBC) [Ratio] 16.5 % 11.6-14.6 [facility] Immature granulocytes/100 WBC (Bld) 1.500 % 0.0-0.9 [facility] Comment on above: IG% - Immature Granu locytes (promyelocytes, myelocytes and metamyelocytes) > 1% indicates that a LEFT SHIFT is Present. MCH (RBC) [Entitic mass] 25.1 pg 27.0-32.0 [facility] Nucleated RBC/100 WBC (Bld) [Ratio] 0 % 0-5 [facility] MCHC Auto (RBC) [Mass/Vol]Or dered By: Floyd Bill on 05-10-2023 MCHC (RBC) [Mass/Vol] 30.7 g/dL 32-36 [facility] No Panel InformationOrdered By: Floyd Bill on 05-10-2023 Estimated GFR (MDRD) Amer 81 mL/min >60 [facility] Comment on above: GFR Calc Estimated GFR (MDRD) Non-Af Amer 67 mL/min >60 [facility] Comment on above: Non- GFR Calc Troponin I High Sensitivity 6 pg/mL 3.0-54.0 [facility] Comment on above: Please Note: New Karlie t Units and Gender Specific Reference Ranges. For more information see Policy Stat Procedure [place] High Sensitivity Troponin (TNIH) and attachments. Platelets bldOrdered By: Estela Bill on 05-10-2023 Platelets (Bld) [#/Vol] 194 10*3/uL 150-450 [facility] Serum or plasma calcium javad urement (mass/volume)Ordered By: Floyd Bill on 05-10-2023 Calcium [Mass/Vol] 8.8 mg/dL 8.5-10.1 [facility] Serum or plasma creatinine m easurement (mass/volume)Ordered By: Floyd Bill on 05-10-2023 Creatinine [Mass/Vol] 0.88 mg/dL 0.55-1.02 [facility] Comment on above: The validity of the calculated GFR & GFRAA in patients over 70 years has not been determined. Clinical correlation is essential. Serum or plasma urea nitroge n measurement (mass/volume)Ordered By: Floyd Bill on 05-10-2023 Urea nitrogen [Mass/Vol] 14 mg/dL 03-08 [facility] Thin prep Papanicolaou smear with manual screeningOrdered By: Floyd Bill on 05-10-2023 Thin prep Papanicolaou smear with manual screening 3 01-03 [facility] CBC W Auto Differential pane l (Bld)on 02-25-2023 Anisocytosis Ql (Bld) Present [facility] Basophils (Bld) [#/Vol] 0.00 10*3/uL <0.11 k/uL [facility] Basophils/100 WBC (Bld) 0.0 % [facility] Differential cell count method Nom (Bld) Manual [facility] Eosinophils (Bld) [#/Vol] 0.12 10*3/uL <0.46 k/uL [facility] Eosinophils/100 WBC (Bld) 1.0 % [facility] Erythrocyte distribution width (RBC) [Ratio] 16.1 % High 11.5 - 15.0 % [facility] Hematocrit (Bld) [Volume fraction] 42.4 % 36.0 - 46.0 % [facility] Hemoglobin (Bld) [Mass/Vol] 13.6 g/dL 11.5 - 15.5 g/dL [facility] Lymphocytes (Bld) [#/Vol] 1.48 10*3/uL 1.00 - 4.00 k/uL [facility] Lymphocytes/100 WBC (Bld) 12.0 % [facility] MCH (RBC) [Entitic mass] 25.6 pg Low 26.0 - 34.0 pg [facility] MCHC (RBC) [Mass/Vol] 32.1 g/dL 30.5 - 36.0 g/dL [facility] MCV (RBC) [Entitic vol] 79.7 fL Low 80.0 - 100.0 fL [facility] Monocytes (Bld) [#/Vol] 0.86 10*3/uL <0.87 k/uL [facility] Monocytes/100 WBC (Bld) 7.0 % [facility] Myelo % 2.0 % [facility] Neutrophils (Bld) [#/Vol] 9.60 10*3/uL High 1.45 - 7.50 k/uL [facility] Neutrophils/100 WBC (Bld) 78.0 % [facility] Nucleated RBC (Bld) [#/Vol] <0.01 k/uL [facility] Nucleated RBC/100 WBC (Bld) [Ratio] 0.0 /100 WBC [facility] Ovalocytes LM Ql (Bld) [facility] Platelet mean volume (Bld) [Entitic vol] 10.0 fL 9.0 - 12.7 fL [facility] Platelets (Bld) [#/Vol] 285 10*3/uL 150 - 400 k/uL [facility] Platelets Estimate (Bld) [#/Vol] Adequate [facility] RBC (Bld) [#/Vol] 5.32 10*6/uL High 3.90 - 5.20 m/uL [facility] Red Cell Morph Reviewed: see result s of individual morphologies [facility] WBC (Bld) [#/Vol] 12.31 10*3/uL High 3.70 - 11.00 k/uL [facility] WBC Left Shift Ql (Bld) Present [facility] XR CHEST 2V FRONTAL/LATon [facility] Absolute lymphocyte countOrd ered By: Dr. Peoples on 01-25-2023 Lymphocytes Auto (Unsp spec) [#/Vol] 1.36 10*3/uL 0.83-4.51 [facility] Basophil percentageOrdered B y: Dr. Peoples on 01-25-2023 Basophil percentage 3.8 mg/dL 2.5-4.9 [facility] Basophils/100 WBC (Bld) 0.7 % 0-1 [facility] Bilirubin [Mass/Vol] 0.40 mg/dL 0.20-1.00 [facility] Comment on above: For patients on eltr ombopag therapy, use of Dimension [place] TBIL is not recommended. Chloride [Moles/Vol] 107 mmol/L 98-[address] [facility] Cholesterol [Mass/Vol] 221 mg/dL <200 [facility] Comment on above: <200 mg/dL Desirable 200-240 mg/dL Borderline >240 mg/dL High Risk Eosinophils/100 WBC (Bld) 2.7 % 0-5 [facility] Glucose [Mass/Vol] 192 mg/dL 74-106 [facility] Comment on above: Fasting Glucose resu lt greater than or equal to 126 mg/dL suggests DIABETES MELLITUS per A.D.A. criteria. Neutrophils (Bld) [#/Vol] 5.7 10*3/uL 2.0-7.7 [facility] Neutrophils/100 WBC (Bld) 70.6 % 47-70 [facility] Potassium [Moles/Vol] 4.0 mmol/L 3.5-5.1 [facility] Protein [Mass/Vol] 6.5 g/dL 6.4-8.2 [facility] Sodium [Moles/Vol] 139 mmol/L 136-145 [facility] Triglyceride [Mass/Vol] 215 mg/dL <199 [facility] Comment on above: The drugs N-Acetylcy steine and Metamizole may falsely depress this assay.Serum Triglycerides Reference Interval Normal <150 mg/dL Borderline high 150 - 199 mg/dL High 200 - 499 mg/dL Very High > or = 500 mg/dL WBC (Bld) [#/Vol] 8.1 10*3/uL 4.4-11.0 [facility] Blood erythrocytes count (nu mber/volume)Ordered By: Dr. Peoples on 01-25-2023 RBC (Bld) [#/Vol] 5.35 10*6/uL 4.2-5.4 [facility] Blood hemoglobin measurement (mass/volume)Ordered By: Dr. Peoples on 01-25-2023 Hemoglobin (Bld) [Mass/Vol] 13.7 g/dL 12.0-15.0 [facility] Blood lymphocytes/100 leukoc ytesOrdered By: Dr. Peoples on 01-25-2023 Lymphocytes/100 WBC (Bld) 16.8 % 19-41 [facility] Blood monocytes/100 leukocyt esOrdered By: Dr. Peoples on 01-25-2023 Monocytes/100 WBC (Bld) 7.2 % 0-10 [facility] Blood platelet mean volumeOr dered By: Dr. Peoples on 01-25-2023 Platelet mean volume (Bld) [Entitic vol] 9.4 fL 6.2-12.0 [facility] Determination of erythrocyte mean corpuscular volume (MCV)Ordered By: Dr. Peoples on 01-25-2023 MCV (RBC) [Entitic vol] 85.0 fL 81-99 [facility] Erythrocyte sedimentation ra teOrdered By: Dr. Peoples on 01-25-2023 ESR (Bld) [Velocity] 30 mm/h 0-30 [facility] Hematocrit Auto (Bld) [Volum e fraction]Ordered By: Dr. Peoples on 01-25-2023 Hematocrit (Bld) [Volume fraction] 45.5 % 37-47 [facility] INR in Blood by Coagulation assayOrdered By: Dr. Peoples on 01-25-2023 INR Coag (Bld) [Relative time] 1.0 {INR} [facility] Laboratory - Chemistry and C hemistry - challengeOrdered By: Dr. Peoples on 01-25-2023 ALP [Catalytic activity/Vol] 91 U/L 45-117 [facility] ALT [Catalytic activity/Vol] 29 U/L 13-56 [facility] CO2 [Moles/Vol] 23.0 mmol/L 21.0-32.0 [facility] Globulin (S) [Mass/Vol] 3.2 g/dL 2.2-4.2 [facility] Urea nitrogen/Creatinine [Mass ratio] 20.3 mg/mg 10-20 [facility] Laboratory - CoagulationOrde red By: Dr. Peoples on 01-25-2023 aPTT Coag (Bld) [Time] 26.2 s 24.1-36.2 [facility] PT Coag (PPP) [Time] 13.4 s 11.7-14.9 [facility] Laboratory - Hematology and Cell countsOrdered By: Dr. Peoples on 01-25-2023 Erythrocyte distribution width (RBC) [Entitic vol] 48.0 fL 35.1-43.9 [facility] Erythrocyte distribution width (RBC) [Ratio] 15.6 % 11.6-14.6 [facility] Immature granulocytes/100 WBC (Bld) 2.000 % 0.0-0.9 [facility] Comment on above: IG% - Immature Granu locytes (promyelocytes, myelocytes and metamyelocytes) > 1% indicates that a LEFT SHIFT is Present. MCH (RBC) [Entitic mass] 25.6 pg 27.0-32.0 [facility] Nucleated RBC/100 WBC (Bld) [Ratio] 0 % 0-5 [facility] MCHC Auto (RBC) [Mass/Vol]Or dered By: Dr. Peoples on 01-25-2023 MCHC (RBC) [Mass/Vol] 30.1 g/dL 32-36 [facility] No Panel InformationOrdered By: Dr. Peoples on 01-25-2023 Anti-Nuclear Antibody Screen Negative Negative [facility] Comment on above: Performed at: [facility] [employer] the [employer] Director: Hero Manzo PhD, Phone: [phone] Estimated GFR (MDRD) Amer 76 mL/min >60 [facility] Comment on above: GFR Calc Estimated GFR (MDRD) Non-Af Amer 63 mL/min >60 [facility] Comment on above: Non- GFR Calc Vitamin D 25-Hydroxy 54.5 ng/mL [facility] Comment on above: Vitamin D 25(OH) Sta tus Range Deficiency <20 ng/mL (50nmol/L) Insufficiency 20 - 30 ng/mL (50 - 75 nmol/L) Sufficiency 30 - 100 ng/mL (75 - 250 nmol/L) Toxicity >100 ng/mL (>250 nmol/L) Platelets bldOrdered By: Dr. Peoples on 01-25-2023 Platelets (Bld) [#/Vol] 280 10*3/uL 150-450 [facility] Serum or plasma C reactive p rotein measurement (mass/volume)Ordered By: Dr. Peoples on 01-25-2023 CRP [Mass/Vol] 15.60 mg/L 0.0-3.0 [facility] Comment on above: C-Reactive Protein ( CRP) provides useful information for thediagnosis, therapy and monitoring of inflammatory processesand associated diseases. For the evaluation of Relative Riskfor Cardiovascular Disease, a High Sensitivity CRP (HSCRP)should be ordered. Serum or plasma albumin javad urement (mass/volume)Ordered By: Dr. Peoplse on 01-25-2023 Albumin [Mass/Vol] 3.3 g/dL 3.2-5.0 [facility] Serum or plasma albumin/glob ulin mass ratioOrdered By: Dr. Peoples on 01-25-2023 Albumin/Globulin [Mass ratio] 1.0 {ratio} 0.9-2.4 [facility] Serum or plasma calcium javad urement (mass/volume)Ordered By: Dr. Peoples on 01-25-2023 Calcium [Mass/Vol] 9.4 mg/dL 8.5-10.1 [facility] Serum or plasma cholesterol in HDL measurement (mass/volume)Ordered By: Dr. Peoples on 01-25-2023 Cholesterol in HDL [Mass/Vol] 43 mg/dL >40 [facility] Comment on above: The drugs N-Acetylcy steine and Metamizole may falsely depress this assay. Reference Range HDL <40 mg/dL Low HDL Cholesterol HDL >or= 60 mg/dL High HDL Cholesterol Serum or plasma cholesterol in VLDL measurement (mass/volume)Ordered By: Dr. Peoples on 01-25-2023 Cholesterol in VLDL [Mass/Vol] 43 mg/dL 5-40 [facility] Serum or plasma creatinine m easurement (mass/volume)Ordered By: Dr. Peoples on 01-25-2023 Creatinine [Mass/Vol] 0.94 mg/dL 0.55-1.02 [facility] Comment on above: The validity of the calculated GFR & GFRAA in patients over 70 years has not been determined. Clinical correlation is essential. Serum or plasma low density lipoprotein (LDL) cholesterol measurement (mass/volume)Ordered By: Dr. Peoples on 01-25-2023 Cholesterol in LDL [Mass/Vol] 135 mg/dL 0-130 [facility] Serum or plasma urea nitroge n measurement (mass/volume)Ordered By: Dr. Peoples on 01-25-2023 Urea nitrogen [Mass/Vol] 19 mg/dL 7-18 [facility] Serum or plasma uric acid me asurement (mass/volume)Ordered By: Dr. Peoples on 01-25-2023 Urate [Mass/Vol] 5.4 mg/dL 2.6-6.0 [facility] Comment on above: The drugs N-Acetylcy steine and Metamizole may falsely depress this assay. Thin prep Papanicolaou smear with manual screeningOrdered By: Dr. Peoples on 01-25-2023 Thin prep Papanicolaou smear with manual screening 17 U/L 15-37 [facility] Thin prep Papanicolaou smear with manual screening 9 5-15 [facility] Absolute lymphocyte countOrd ered By: Dr. Peoples on 09-20-2022 Lymphocytes Auto (Unsp spec) [#/Vol] 1.17 10*3/uL 0.83-4.51 [facility] Basophil percentageOrdered B y: Dr. Peoples on 09-20-2022 Basophils/100 WBC (Bld) 0.9 % 0-1 [facility] Bilirubin [Mass/Vol] 0.40 mg/dL 0.20-1.00 [facility] Comment on above: For patients on eltr ombopag therapy, use of Dimension [place] TBIL is not recommended. Chloride [Moles/Vol] 102 mmol/L 98-107 [facility] Eosinophils/100 WBC (Bld) 6.3 % 0-5 [facility] Glucose [Mass/Vol] 172 mg/dL 74-106 [facility] Comment on above: Fasting Glucose resu lt greater than or equal to 126 mg/dL suggests DIABETES MELLITUS per A.D.A. criteria. Neutrophils (Bld) [#/Vol] 5.5 10*3/uL 2.0-7.7 [facility] Neutrophils/100 WBC (Bld) 67.3 % 47-70 [facility] Potassium [Moles/Vol] 3.9 mmol/L 3.5-5.1 [facility] Protein [Mass/Vol] 7.4 g/dL 6.4-8.2 [facility] Sodium [Moles/Vol] 137 mmol/L 136-145 [facility] WBC (Bld) [#/Vol] 8.1 10*3/uL 4.4-11.0 [facility] Blood erythrocytes count (nu mber/volume)Ordered By: Dr. Peolpes on 09-20-2022 RBC (Bld) [#/Vol] 5.73 10*6/uL 4.2-5.4 [facility] Blood hemoglobin measurement (mass/volume)Ordered By: Dr. Peoples on 09-20-2022 Hemoglobin (Bld) [Mass/Vol] 14.5 g/dL 12.0-15.0 [facility] Blood lymphocytes/100 leukoc ytesOrdered By: Dr. Peoples on 09-20-2022 Lymphocytes/100 WBC (Bld) 14.4 % 19-41 [facility] Blood monocytes/100 leukocyt esOrdered By: Dr. Peoples on 09-20-2022 Monocytes/100 WBC (Bld) 9.4 % 0-10 [facility] Blood platelet mean volumeOr dered By: Dr. Peoples on 09-20-2022 Platelet mean volume (Bld) [Entitic vol] 10.5 fL 6.2-12.0 [facility] Determination of erythrocyte mean corpuscular volume (MCV)Ordered By: Dr. Peoples on 09-20-2022 MCV (RBC) [Entitic vol] 82.2 fL 81-99 [facility] Erythrocyte sedimentation ra teOrdered By: Dr. Peoples on 09-20-2022 ESR (Bld) [Velocity] 45 mm/h 0-30 [facility] Hematocrit Auto (Bld) [Volum e fraction]Ordered By: Dr. Peoples on 09-20-2022 Hematocrit (Bld) [Volume fraction] 47.1 % 37-47 [facility] Laboratory - Chemistry and C hemistry - challengeOrdered By: Dr. Peoples on 09-20-2022 ALP [Catalytic activity/Vol] 98 U/L 45-117 [facility] ALT [Catalytic activity/Vol] 32 U/L 13-56 [facility] CO2 [Moles/Vol] 21.0 mmol/L 21.0-32.0 [facility] Globulin (S) [Mass/Vol] 4.0 g/dL 2.2-4.2 [facility] Urea nitrogen/Creatinine [Mass ratio] 14.9 mg/mg 10-20 [facility] Laboratory - Hematology and Cell countsOrdered By: Dr. Peoples on 09-20-2022 Erythrocyte distribution width (RBC) [Entitic vol] 47.0 fL 35.1-43.9 [facility] Erythrocyte distribution width (RBC) [Ratio] 16.1 % 11.6-14.6 [facility] Immature granulocytes/100 WBC (Bld) 1.700 % 0.0-0.9 [facility] Comment on above: IG% - Immature Granu locytes (promyelocytes, myelocytes and metamyelocytes) > 1% indicates that a LEFT SHIFT is Present. MCH (RBC) [Entitic mass] 25.3 pg 27.0-32.0 [facility] Nucleated RBC/100 WBC (Bld) [Ratio] 0 % 0-5 [facility] MCHC Auto (RBC) [Mass/Vol]Or dered By: Dr. Peoples on 09-20-2022 MCHC (RBC) [Mass/Vol] 30.8 g/dL 32-36 [facility] No Panel InformationOrdered By: Dr. Peoples on 09-20-2022 Estimated GFR (MDRD) Amer 76 mL/min >60 [facility] Comment on above: GFR Calc Estimated GFR (MDRD) Non-Af Amer 63 mL/min >60 [facility] Comment on above: Non- GFR Calc Thyroid Stimulating Hormone (TSH) 1.54 uIU/mL 0.358-3.74 [facility] Vitamin D 25-Hydroxy 39.0 ng/mL [facility] Comment on above: Vitamin D 25(OH) Sta tus Range Deficiency <20 ng/mL (50nmol/L) Insufficiency 20 - 30 ng/mL (50 - 75 nmol/L) Sufficiency 30 - 100 ng/mL (75 - 250 nmol/L) Toxicity >100 ng/mL (>250 nmol/L) Platelets bldOrdered By: Dr. Peoples on 09-20-2022 Platelets (Bld) [#/Vol] 281 10*3/uL 150-450 [facility] Serum or plasma C reactive p rotein measurement (mass/volume)Ordered By: Dr. Peoples on 09-20-2022 CRP [Mass/Vol] 18.30 mg/L 0.0-3.0 [facility] Comment on above: C-Reactive Protein ( CRP) provides useful information for thediagnosis, therapy and monitoring of inflammatory processesand associated diseases. For the evaluation of Relative Riskfor Cardiovascular Disease, a High Sensitivity CRP (HSCRP)should be ordered. Serum or plasma albumin javad urement (mass/volume)Ordered By: Dr. Peoples on 09-20-2022 Albumin [Mass/Vol] 3.4 g/dL 3.2-5.0 [facility] Serum or plasma albumin/glob ulin mass ratioOrdered By: Dr. Peoples on 09-20-2022 Albumin/Globulin [Mass ratio] 0.8 {ratio} 0.9-2.4 [facility] Serum or plasma calcium javad urement (mass/volume)Ordered By: Dr. Peoples on 09-20-2022 Calcium [Mass/Vol] 9.9 mg/dL 8.5-10.1 [facility] Serum or plasma creatinine m easurement (mass/volume)Ordered By: Dr. Peoples on 09-20-2022 Creatinine [Mass/Vol] 0.94 mg/dL 0.55-1.02 [facility] Comment on above: The validity of the calculated GFR & GFRAA in patients over 70 years has not been determined. Clinical correlation is essential. Serum or plasma urea nitroge n measurement (mass/volume)Ordered By: Dr. Peoples on 09-20-2022 Urea nitrogen [Mass/Vol] 14 mg/dL 7-18 [facility] Thin prep Papanicolaou smear with manual screeningOrdered By: Dr. Peoples on 09-20-2022 Thin prep Papanicolaou smear with manual screening 18 U/L 15-37 [facility] Thin prep Papanicolaou smear with manual screening 14 5-15 [facility] SPIROMETRY BASELINE ONLYon 0 04-22-2022 [id number]% PRE (L/S) 1.92 L/S [facility] FEV1 PRE (L) 2.12 L [facility] FEV1/FVC PRE (%) 78 % [facility] FVC PRE (L) 2.70 L [facility] PEF PRE (L/S) 7.44 L/S [facility] MRI BRAIN WO IVCONon 022 [facility] Absolute lymphocyte counton 01-21-2022 Lymphocytes Auto (Unsp spec) [#/Vol] 1.52 10*3/uL 0.83-4.51 [facility] Work Phone: Basophil percentageon 2021 Basophils/100 WBC (Bld) 0.8 % 0-1 [facility] Work Phone: Bilirubin [Mass/Vol] 0.50 mg/dL 0.20-1.00 [facility] Work Phone: Comment on above: For patients on eltr ombopag therapy, use of Dimension [place] TBIL is not recommended. Chloride [Moles/Vol] 105 mmol/L 98-107 [facility] Work Phone: Eosinophils/100 WBC (Bld) 4.1 % 0-5 [facility] Work Phone: Glucose [Mass/Vol] 200 mg/dL 74-106 [facility] Work Phone: Comment on above: Glucose result great er than or equal to 200 mg/dLsuggests DIABETES MELLITUS per A.D.A. criteria. Neutrophils (Bld) [#/Vol] 3.3 10*3/uL 2.0-7.7 [facility] Work Phone: [phone] Neutrophils/100 WBC (Bld) 56.7 % 47-70 [facility] Work Phone: Potassium [Moles/Vol] 3.8 mmol/L 3.5-5.1 [facility] Work Phone: Protein [Mass/Vol] 7.4 g/dL 6.4-8.2 [facility] Work Phone: Sodium [Moles/Vol] 139 mmol/L 136-145 [facility] Work Phone: WBC (Bld) [#/Vol] 5.9 10*3/uL 4.4-11.0 [facility] Work Phone: Blood erythrocytes count (nu mber/volume)on 01-21-2022 RBC (Bld) [#/Vol] 5.21 10*6/uL 4.2-5.4 [facility] Work Phone: Blood hemoglobin measurement (mass/volume)on 01-21-2022 Hemoglobin (Bld) [Mass/Vol] 14.0 g/dL 12.0-15.0 [facility] Work Phone: Blood lymphocytes/100 leukoc yteson 01-21-2022 Lymphocytes/100 WBC (Bld) 25.8 % 19-41 [facility] Work Phone: Blood monocytes/100 leukocyt eson 01-21-2022 Monocytes/100 WBC (Bld) 10.9 % 0-10 [facility] Work Phone: Blood platelet mean volumeon 01-21-2022 Platelet mean volume (Bld) [Entitic vol] 10.9 fL 6.2-12.0 [facility] Work Phone: Determination of erythrocyte mean corpuscular volume (MCV)on 01-21-2022 MCV (RBC) [Entitic vol] 86.0 fL 81-99 [facility] Work Phone: Erythrocyte sedimentation ra kaylah 01-21-2022 ESR (Bld) [Velocity] 20 mm/h 0-30 [facility] Work Phone: Hematocrit Auto (Bld) [Volum e fraction]on 01-21-2022 Hematocrit (Bld) [Volume fraction] 44.8 % 37-47 [facility] Work Phone: Laboratory - Chemistry and C hemistry - challengeon 01-21-2022 ALP [Catalytic activity/Vol] 74 U/L 45-117 [facility] Work Phone: ALT [Catalytic activity/Vol] 59 U/L 13-56 [facility] Work Phone: CO2 [Moles/Vol] 26.0 mmol/L 21.0-32.0 [facility] Work Phone: Globulin (S) [Mass/Vol] 3.8 g/dL 2.2-4.2 [facility] Work Phone: Urea nitrogen/Creatinine [Mass ratio] 15.0 mg/mg 10-20 [facility] Work Phone: Laboratory - Hematology and Cell countson 01-21-2022 Erythrocyte distribution width (RBC) [Entitic vol] 48.9 fL 35.1-43.9 [facility] Work Phone: [phone] Erythrocyte distribution width (RBC) [Ratio] 15.9 % 11.6-14.6 [facility] Work Phone: Immature granulocytes/100 WBC (Bld) 1.700 % 0.0-0.9 [facility] Work Phone: Comment on above: IG% - Immature Granu locytes (promyelocytes, myelocytes and metamyelocytes) > 1% indicates that a LEFT SHIFT is Present. MCH (RBC) [Entitic mass] 26.9 pg 27.0-32.0 [facility] Work Phone: Nucleated RBC/100 WBC (Bld) [Ratio] 0 % 0-5 [facility] Work Phone: MCHC Auto (RBC) [Mass/Vol]on 01-21-2022 MCHC (RBC) [Mass/Vol] 31.3 g/dL 32-36 [facility] Work Phone: No Panel Informationon 01-21 Estimated GFR (MDRD) Amer 70 mL/min >60 [facility] Work Phone: Comment on above: GFR Calc Estimated GFR (MDRD) Non-Af Amer 58 mL/min >60 [facility] Work Phone: Comment on above: Non- GFR Calc Platelets bldon 01-21-2022 Platelets (Bld) [#/Vol] 227 10*3/uL 150-450 [facility] Work Phone: Qualitative QuantiFERON-TB g old in tube teston 01-21-2022 M. tuberculosis tuberculin stim IFN-g Ql (Bld) 0.05 IU/mL . [facility] Work Phone: Serum or plasma C reactive p rotein measurement (mass/volume)on 01-21-2022 CRP [Mass/Vol] 10.30 mg/L 0.0-3.0 [facility] Work Phone: Comment on above: C-Reactive Protein ( CRP) provides useful information for thediagnosis, therapy and monitoring of inflammatory processesand associated diseases. For the evaluation of Relative Riskfor Cardiovascular Disease, a High Sensitivity CRP (HSCRP)should be ordered. Serum or plasma albumin javad urement (mass/volume)on 01-21-2022 Albumin [Mass/Vol] 3.6 g/dL 3.2-5.0 [facility] Work Phone: Serum or plasma albumin/glob ulin mass ratioon 01-21-2022 Albumin/Globulin [Mass ratio] 0.9 {ratio} 0.9-2.4 [facility] Work Phone: Serum or plasma calcium javad urement (mass/volume)on 01-21-2022 Calcium [Mass/Vol] 9.4 mg/dL 8.5-10.1 [facility] Work Phone: Serum or plasma creatinine m easurement (mass/volume)on 01-21-2022 Creatinine [Mass/Vol] 1.00 mg/dL 0.55-1.02 [facility] Work Phone: Comment on above: The validity of the calculated GFR & GFRAA in patients over 70 years has not been determined. Clinical correlation is essential. Serum or plasma urea nitroge n measurement (mass/volume)on 01-21-2022 Urea nitrogen [Mass/Vol] 15 mg/dL 7-18 [facility] Work Phone: Thin prep Papanicolaou smear with manual screeningon 01-21-2022 Thin prep Papanicolaou smear with manual screening 34 U/L 15-37 [facility] Work Phone: Thin prep Papanicolaou smear with manual screening 8 5-15 [facility] Work Phone: Thin prep Papanicolaou smear with manual screening Comment . [facility] Work Phone: Comment on above: The QuantiFERON-TB G old Plus result is determined bysubtracting the Nil value from either TB antigen (Ag) tube.The mitogen tube serves as a control for the test. Thin prep Papanicolaou smear with manual screening 0.05 IU/mL . [facility] Work Phone: Thin prep Papanicolaou smear with manual screening 0.04 IU/mL . [facility] Work Phone: Thin prep Papanicolaou smear with manual screening > 10.00 IU/mL . [facility] Work Phone: Thin prep Papanicolaou smear with manual screening Negative Negative [facility] Work Phone: Comment on above: The specimen receive d for QuantiFERON testing was incubatedby the ordering institution. Specific procedures outlinedin our Directory of Services and in the package insert forthe QuantiFERON Gold (In Tube) test must be followed toenable for proper stimulation of cells for the productionof interferon gamma. Chemiluminescence immunoassaymethodologyPerformed at: [facility] [address] [id number] Director: Hero Manzo PhD, Phone: [phone] Basophil percentageon 2021 Chloride [Moles/Vol] 102 mmol/L 98-107 [facility] Work Phone: Glucose [Mass/Vol] 304 mg/dL 74-106 [facility] Work Phone: Comment on above: Glucose result great er than or equal to 200 mg/dLsuggests DIABETES MELLITUS per A.D.A. criteria. Potassium [Moles/Vol] 3.9 mmol/L 3.5-5.1 [facility] Work Phone: Sodium [Moles/Vol] 134 mmol/L 136-145 [facility] Work Phone: WBC (Bld) [#/Vol] 11.0 10*3/uL 4.4-11.0 [facility] Work Phone: Blood erythrocytes count (nu mber/volume)on 12-30-2021 RBC (Bld) [#/Vol] 5.33 10*6/uL 4.2-5.4 [facility] Work Phone: Blood hemoglobin measurement (mass/volume)on 12-30-2021 Hemoglobin (Bld) [Mass/Vol] 14.1 g/dL 12.0-15.0 [facility] Work Phone: Blood platelet mean volumeon 12-30-2021 Platelet mean volume (Bld) [Entitic vol] 11.2 fL 6.2-12.0 [facility] Work Phone: Determination of erythrocyte mean corpuscular volume (MCV)on 12-30-2021 MCV (RBC) [Entitic vol] 84.2 fL 81-99 [facility] Work Phone: Erythrocyte sedimentation ra kaylah 12-30-2021 ESR (Bld) [Velocity] 36 mm/h 0-30 [facility] Work Phone: Hematocrit Auto (Bld) [Volum e fraction]on 12-30-2021 Hematocrit (Bld) [Volume fraction] 44.9 % 37-47 [facility] Work Phone: Iron measurement (mass/mass) on 12-30-2021 Iron (Unsp spec) [Mass/Mass] 73 ug/dL 50-170 [facility] Work Phone: Laboratory - Chemistry and C hemistry - challengeon 12-30-2021 CO2 [Moles/Vol] 22.0 mmol/L 21.0-32.0 [facility] Work Phone: Cobalamin (Vitamin B12) [Mass/Vol] 787 pg/mL 211-911 [facility] Work Phone: Urea nitrogen/Creatinine [Mass ratio] 19.2 mg/mg 10-20 [facility] Work Phone: Laboratory - Hematology and Cell countson 12-30-2021 Erythrocyte distribution width (RBC) [Entitic vol] 45.9 fL 35.1-43.9 [facility] Work Phone: Erythrocyte distribution width (RBC) [Ratio] 15.3 % 11.6-14.6 [facility] Work Phone: MCH (RBC) [Entitic mass] 26.5 pg 27.0-32.0 [facility] Work Phone: MCHC Auto (RBC) [Mass/Vol]on 12-30-2021 MCHC (RBC) [Mass/Vol] 31.4 g/dL 32-36 [facility] Work Phone: No Panel Informationon 12-30 Estimated GFR (MDRD) Amer 71 mL/min >60 [facility] Work Phone: Comment on above: GFR Calc Estimated GFR (MDRD) Non-Af Amer 59 mL/min >60 [facility] Work Phone: Comment on above: Non- GFR Calc Thyroid Stimulating Hormone (TSH) 1.26 uIU/mL 0.358-3.74 [facility] Work Phone: Vitamin D 25-Hydroxy 57.8 ng/mL [facility] Work Phone: Comment on above: Vitamin D 25(OH) Sta tus Range Deficiency <20 ng/mL (50nmol/L) Insufficiency 20 - 30 ng/mL (50 - 75 nmol/L) Sufficiency 30 - 100 ng/mL (75 - 250 nmol/L) Toxicity >100 ng/mL (>250 nmol/L) Platelets bldon 12-30-2021 Platelets (Bld) [#/Vol] 274 10*3/uL 150-450 [facility] Work Phone: Serum or plasma calcium javad urement (mass/volume)on 12-30-2021 Calcium [Mass/Vol] 10.4 mg/dL 8.5-10.1 [facility] Work Phone: Serum or plasma creatinine m easurement (mass/volume)on 12-30-2021 Creatinine [Mass/Vol] 0.99 mg/dL 0.55-1.02 [facility] Work Phone: Comment on above: The validity of the calculated GFR & GFRAA in patients over 70 years has not been determined. Clinical correlation is essential. Serum or plasma urea nitroge n measurement (mass/volume)on 12-30-2021 Urea nitrogen [Mass/Vol] 19 mg/dL 7-18 [facility] Work Phone: Thin prep Papanicolaou smear with manual screeningon 12-30-2021 Thin prep Papanicolaou smear with manual screening 10 5-15 [facility] Work Phone: Basophil percentageon 2021 WBC (Bld) [#/Vol] 9.4 10*3/uL 4.4-11.0 [facility] Work Phone: Blood erythrocytes count (nu mber/volume)on 12-08-2021 RBC (Bld) [#/Vol] 5.24 10*6/uL 4.2-5.4 [facility] Work Phone: Blood hemoglobin measurement (mass/volume)on 12-08-2021 Hemoglobin (Bld) [Mass/Vol] 13.8 g/dL 12.0-15.0 [facility] Work Phone: Blood platelet mean volumeon 12-08-2021 Platelet mean volume (Bld) [Entitic vol] 10.8 fL 6.2-12.0 [facility] Work Phone: Determination of erythrocyte mean corpuscular volume (MCV)on 12-08-2021 MCV (RBC) [Entitic vol] 82.4 fL 81-99 [facility] Work Phone: Hematocrit Auto (Bld) [Volum e fraction]on 12-08-2021 Hematocrit (Bld) [Volume fraction] 43.2 % 37-47 [facility] Work Phone: Laboratory - Hematology and Cell countson 12-08-2021 Erythrocyte distribution width (RBC) [Entitic vol] 45.9 fL 35.1-43.9 [facility] Work Phone: Erythrocyte distribution width (RBC) [Ratio] 15.4 % 11.6-14.6 [facility] Work Phone: MCH (RBC) [Entitic mass] 26.3 pg 27.0-32.0 [facility] Work Phone: MCHC Auto (RBC) [Mass/Vol]on 12-08-2021 MCHC (RBC) [Mass/Vol] 31.9 g/dL 32-36 [facility] Work Phone: Platelets bldon 12-08-2021 Platelets (Bld) [#/Vol] 257 10*3/uL 150-450 [facility] Work Phone: No Panel Informationon 08-20 Respiratory Panel (PCR) [facility] Work Phone: SARS coronavirus RNA [Presen ce] in Unspecified specimen by MARLO with probe detectionon 08-20-2021 SARS-CoV RNA MARLO+probe Ql (Unsp spec) Not detected Not Detected [facility] Work Phone: Comment on above: This nucleic acid am plification test was developed and itsperformance characteristics determined by [facility]. Nucleic acid amplification tests include RT-PCR and TMA. This test has not been FDA cleared orapproved. This test has been authorized by FDA under anEmergency Use Authorization (EUA). This test is onlyauthorized for the duration of time the declaration thatcircumstances exist justifying the authorization of theemergency use of in vitro diagnostic tests for detection [id number] virus and/or diagnosis of COVID-19 infectionunder section 564(b)(1) of the Act, 21 U.S.C. 360bbb-3(b)(1), unless the authorization is terminated or revokedsooner.When diagnostic testing is negative, the possibility of afalse negative result should be considered in the contextof a patient's recent exposures and the presence ofclinical signs and symptoms consistent with COVID-19. Anindividual without symptoms of COVID-19 and who is notshedding SARS-CoV-2 virus would expect to have a negative(not detected) result in this assay. [facility] ZIRAJWINDER BOONE ( ) 1950 F Date Time Provider Department 05/05/21 DARIEN GUDINO JR During your visit today, we recorded the following information about you: Allergies As of Date: 05/05/2021 Noted Allergy Reaction BACTRIM (SULFAMETHOXAZOLE-TRIMETH*1 09/17/2016 4 - Hives ERYTHROMYCIN 12/21/2011 8 - GI Upset 11 - Vomiting NUT - UNSPECIFIED 08/08/2012 10 - Anaphylaxis Comments: Tree Nuts. Anaphylaxis. environmentals [Other] 12/21/2011 16 - Unknown Comments: Dust, tobacco, pollen, ragweed PINEAPPLE 02/25/2020 14 - Other: See Comments Comments: Causes mouth to feel like razors Date Reviewed: 04/24/2021 Reviewed by: Darien uGdino Jr., MD - Fully Assessed Reason for Visit: Orders [681] Primary Visit Diagnosis:Abnormal SPEP [R77.8] Other Visit Diagnosis:Neuropathy [G62.9] Order(s):PROTEIN ELECTRO AND INTERP (RFX SLY AND FREE LIGHT CHAINS), SERUM [[id number]] Order #: [id number] FUTURE Prescriptions as of 05/05/2021 - rOPINIRole (REQUIP) 0.25 mg tablet Take 1 tablet before bedtime. If tingling persists, try increasing to 2 tablets. - levETIRAcetam ER (KEPPRA XR) 750 mg 24 hr tablet Take 1 tablet by mouth every 24 hours. - CPAP In-line filter - Respironics Device. Lifetime supplies. - pregabalin (LYRICA) 75 mg capsule Take 1 capsule by mouth twice daily for 90 days. - CPAP Please set at 10-20 cmH2O with humidity with download to us in 4 weeks. Also please provide mask fitting (dreamwear under the nose nasal mask). - potassium chloride 20 mEq TbER Take 1 tablet by mouth once daily. - albuterol (PROVENTIL) 2.5 mg /3 mL (0.083 %) nebulizer solution USE 3 ML VIA NEBULIZER EVERY 6 HOURS NEED OVER 5-15 MINUTES FOR WHEEZING AND SHORTNESS OF BREATH - atorvastatin (LIPITOR) 20 mg tablet Take 20 mg by mouth once daily. - leflunomide (ARAVA) 20 mg tablet Take 20 mg by mouth once daily. - TRADJENTA 5 mg tab Take 5 mg by mouth once daily. - Nebulizer Accessories kit Provide nebulizer kit. - Nebulizer and Compressor For Neb Provide nebulizer. - guaiFENesin (MUCINEX) 600 mg 12 hr tablet Take 1 tablet by mouth twice daily. - CPAP Please eval pts machine as not providing downloads. If you can get download please send us copy. Also please provided mask fitting as pts mask leaking. - albuterol (PROVENTIL) 2.5 mg /3 mL (0.083 %) nebulizer solution Use 3 mL via nebulizer one time only for 1 dose. OVER 5-15 MINUTES. FOR WHEEZING AND SHORTNESS OF BREATH. - ipratropium (ATROVENT) 0.02 % nebulizer solution Use 2.5 mL via nebulizer one time only for 1 dose. OVER 5-15 MINUTES FOR WHEEZING OR SHORTNESS OF BREATH - fluticasone-salmeterol (ADVAIR DISKUS) 500-50 mcg/dose dsdv Inhale 1 Puff as instructed twice daily. - predniSONE (DELTASONE) 10 mg tablet 2 DAILY FOR 1 WEEK THEN 1 TAB DAILY FOR 1 WEEK. KEEP REMAINDER ON HAND FOR FUTURE FLARES - venlafaxine ER (EFFEXOR XR) 150 mg 24 hr capsule 300 mg once daily. - Azelastine (ASTEPRO) 0.15 % (205.5 mcg) spry Use 1 Maxton in each nostril twice daily. - montelukast (SINGULAIR) 10 mg tablet Take 1 tablet by mouth daily at bedtime. - albuterol HFA (PROAIR HFA) 90 mcg/actuation inhaler Inhale 2 Puffs as instructed every 4 hours as needed for Wheezing/Shortness of Breath. - fluticasone (FLONASE) 50 mcg/actuation nasal spray Use 1 Maxton in each nostril once daily. - losartan (COZAAR) 50 mg tablet Take 1 tablet by mouth once daily. - citalopram (CELEXA) 20 mg tablet Take 40 mg by mouth once daily. - QUEtiapine (SEROQUEL) 100 mg tablet Take 200 mg by mouth daily at bedtime. - amLODIPine 5 mg ORAL tablet Take 5 mg by mouth once daily. - hydrochlorothiazide 25 mg ORAL tablet Take 12.5 mg by mouth once daily. - ALPRAZolam (XANAX) 0.5 mg ORAL tablet Take 0.5 mg by mouth at bedtime as needed. Problem List As Of Date 05/05/2021 Noted Resolved Asthma [J45.909] 05/16/2013 SANTHOSH (obstructive sleep apnea) [G47.33] 05/16/2013 Obesity [E66.9] 05/16/2013 Hypertension [I10] 05/16/2013 Sinus arrhythmia [I49.8] 05/16/2013 First degree heart block [I44.0] 05/16/2013 Obesity, Class II, BMI 35-39.9 [E66.9] 01/09/2018 Nonintractable episodic headache [R51.9] 01/26/2019 Neuropathy (HCC) [G62.9] 01/26/2019 Vertigo [R42] 01/26/2019 PTSD (post-traumatic stress disorder) [F43.10] 01/26/2019 Encounter Status:Closed by DARIEN GUDINO on 05/05/21 [facility] 08-12-2020 [place] Telephone (NEURBA) RAJWINDER WYLIE ([id number]) 1950 F Date Time Provider Department 08/12/20 DARIEN GUDINO JR During your visit today, we recorded the following information about you: Ramon Dennis MA 08/12/2020 9:08 AM Signed August 12, 2020 9:07 AM Received fax from patient's [facility] requesting a 90 day supply of patient's requip Please advise SNEHA Graham MD 08/12/2020 9:32 AM Signed Addended by: DARIEN GUDINO on: 08/12/2020 09:32 AM Modules accepted: Orders Allergies As of Date: 08/12/2020 Noted Allergy Reaction BACTRIM (SULFAMETHOXAZOLE-TRIMETH*1 09/17/2016 4 - Hives ERYTHROMYCIN 12/21/2011 8 - GI Upset 11 - Vomiting NUT - UNSPECIFIED 08/08/2012 10 - Anaphylaxis Comments: Tree Nuts. Anaphylaxis. environmentals [Other] 12/21/2011 16 - Unknown Comments: Dust, tobacco, pollen, ragweed PINEAPPLE 02/25/2020 14 - Other: See Comments Comments: Causes mouth to feel like razors Date Reviewed: 07/28/2020 Reviewed by: Darien Gudino Jr. - Fully Assessed Reason for Visit: Orders [681] Primary Visit Diagnosis:RLS (restless legs syndrome) [G25.81] Order(s):rOPINIRole (REQUIP) 0.25 mg tabletTake 1 tablet before bedtime. If tingling persists, try increasing to 2 tablets.Disp: 180 tabletRfl: 0 Prescriptions as of 08/12/2020 Sig: ROPINIROLE 0.25 MG TABLET Take 1 tablet before bedtime.* LEVETIRACETAM ER 750 MG TABLE* Take 1 tablet by mouth every * CPAP Please eval pts machine as no* CPAP Please set at 10-20 cmH2O wit* ALBUTEROL SULFATE 2.5 MG/3 ML* Use 3 mL via nebulizer one ti* IPRATROPIUM BROMIDE 0.02 % SO* Use 2.5 mL via nebulizer one * FLUTICASONE 500 MCG-SALMETERO* Inhale 1 Puff as instructed t* ALBUTEROL SULFATE 2.5 MG/3 ML* Use 3 mL via nebulizer every * PREDNISONE 10 MG TABLET 2 DAILY FOR 1 WEEK THEN 1 TAB* VENLAFAXINE ER 150 MG CAPSULE* 300 mg once daily. AZELASTINE 0.15 % (205.5 MCG)* Use 1 Maxton in each nostril t* MONTELUKAST 10 MG TABLET Take 1 tablet by mouth daily * ALBUTEROL SULFATE HFA 90 MCG/* Inhale 2 Puffs as instructed * FLUTICASONE PROPIONATE 50 MCG* Use 1 Maxton in each nostril o* LOSARTAN 50 MG TABLET Take 1 tablet by mouth once d* Patient taking differently: Take 50 mg by mouth once helen* CITALOPRAM 20 MG TABLET Take 40 mg by mouth once helen* QUETIAPINE 100 MG TABLET Take 150 mg by mouth daily at* * AMLODIPINE 5 MG TABLET Take 5 mg by mouth once daily* * HYDROCHLOROTHIAZIDE 25 MG TAB* Take 12.5 mg by mouth once da* * ALPRAZOLAM 0.5 MG TABLET Take 0.5 mg by mouth at bedti* Problem List As Of Date 08/12/2020 Noted Resolved Asthma [J45.909] 05/16/2013 More... SANTHOSH (obstructive sleep apnea) [G47.33] 05/16/2013 More... Obesity [E66.9] 05/16/2013 Hypertension [I10] 05/16/2013 Sinus arrhythmia [I49.8] 05/16/2013 More... First degree heart block [I44.0] 05/16/2013 More... Obesity, Class II, BMI 35-39.9 [E66.9] 01/09/2018 Nonintractable episodic headache [R51.9] 01/26/2019 Neuropathy (HCC) [G62.9] 01/26/2019 Vertigo [R42] 01/26/2019 PTSD (post-traumatic stress disorder) [F43.10] 01/26/2019 Prescriptions ordered this encounter Disp Refills Start End ROPINIROLE 0.25 MG TABLET 180 * 0 08/12/2020 Sig: Take 1 tablet before bedtime. If tingling persists, try increasing to 2 tablets. Medications Discontinued During This Encounter Prescriptions - rOPINIRole (REQUIP) 0.25 mg tablet (Discontinued) Take 1 tablet before bedtime. If tingling persists, try increasing to 2 tablets. Encounter Status:Closed by RAMON DENNIS MA on 08/12/20 [facility] [place] 01-22-2020 [facility] Telephone (Edkimo) DEJANRAJWINDER Avelina ([id number]) 1950 F Date Time Provider Department 01/22/20 DARIEN GUDINO JR During your visit today, we recorded the following information about you: YENIFER Jones 01/22/2020 2:50 PM Signed Patient would like to have HSAT as PSG is difficult due to inability to have anyone watch her 5 dogs so she can spend a night away. Please place order. Patient to follow up with you in [place]. YENIFER Jones MD 01/23/2020 12:46 PM Signed Patient is in need of a PAP titration study. This cannot be done from home. Needs performed in lab. Darien Gudino MD Allergies As of Date: 01/22/2020 Noted Allergy Reaction BACTRIM (SULFAMETHOXAZOLE-TRIMETH*1 09/17/2016 4 - Hives ERYTHROMYCIN 12/21/2011 8 - GI Upset 11 - Vomiting NUT - UNSPECIFIED 08/08/2012 10 - Anaphylaxis Comments: Tree Nuts. Anaphylaxis. environmentals [Other] 12/21/2011 16 - Unknown Comments: Dust, tobacco, pollen, ragweed Date Reviewed: 08/13/2019 Reviewed by: Rodrigo Lamb - Fully Assessed Reason for Visit: Orders [681] Prescriptions as of 01/22/2020 Sig: LEVETIRACETAM ER 750 MG TABLE* Take 1 tablet by mouth every * FLUTICASONE 500 MCG-SALMETERO* Inhale 1 Puff as instructed t* ALBUTEROL SULFATE 2.5 MG/3 ML* Use 3 mL via nebulizer every * COMPOUNDED PRESCRIPTION PulmoAid nebulizer Use as di* PREDNISONE 10 MG TABLET 2 DAILY FOR 1 WEEK THEN 1 TAB* VENLAFAXINE ER 150 MG CAPSULE* 300 mg once daily. AZELASTINE 0.15 % (205.5 MCG)* Use 1 Maxton in each nostril t* MONTELUKAST 10 MG TABLET Take 1 tablet by mouth daily * ALBUTEROL SULFATE HFA 90 MCG/* Inhale 2 Puffs as instructed * FLUTICASONE PROPIONATE 50 MCG* Use 1 Maxton in each nostril o* LOSARTAN 50 MG TABLET Take 1 tablet by mouth once d* Patient taking differently: Take 50 mg by mouth once helen* CITALOPRAM 20 MG TABLET Take 40 mg by mouth once helen* QUETIAPINE 100 MG TABLET Take 150 mg by mouth daily at* * AMLODIPINE 5 MG TABLET Take 5 mg by mouth once daily* * HYDROCHLOROTHIAZIDE 25 MG TAB* Take 12.5 mg by mouth once da* * ALPRAZOLAM 0.5 MG TABLET Take 0.5 mg by mouth at bedti* Problem List As Of Date 01/22/2020 Noted Resolved Asthma [J45.909] 05/16/2013 More... SANTHOSH (obstructive sleep apnea) [G47.33] 05/16/2013 More... Obesity [E66.9] 05/16/2013 Hypertension [I10] 05/16/2013 Sinus arrhythmia [I49.8] 05/16/2013 More... First degree heart block [I44.0] 05/16/2013 More... Obesity, Class II, BMI 35-39.9 [E66.9] 01/09/2018 Nonintractable episodic headache [R51] 01/26/2019 Neuropathy (HCC) [G62.9] 01/26/2019 Vertigo [R42] 01/26/2019 PTSD (post-traumatic stress disorder) [F43.10] 01/26/2019 Encounter Status:Closed by CAROL ALBRIGHT on 02/06/20 [facility] OBSOLETEon 01-22-2020 OBSOLETE Refill (NEURBA) RAJWINDER WYLIE ([id number]) 1950 F Date Time Provider Department 01/22/20 DARIEN GUDINO JR During your visit today, we recorded the following information about you: YENIFER Jones 01/22/2020 2:42 PM Signed Patient called requesting the following refill Refill(s) Requested: Pending Prescriptions Disp Refills LEVETIRACETAM ER 750 MG TABLET,EXTENDED RELEASE 24 HR 30 tablet 11 Sig: Take 1 tablet by mouth every 24 hours. DINORA: No ALLERGIES Allergen Reactions - Bactrim [Sulfametho* Hives - Erythromycin GI Upset, Vomiting - Nut - Unspecified Anaphylaxis Tree Nuts. Anaphylaxis. - Environmentals [Oth* Unknown Dust, tobacco, pollen, ragweed (home) [phone] (cell) Last Visit date: 01/26/2019 Future appointment: Visit date not found The patients preferred pharmacy has been captured for this encounter? yes Request is for script(s) to be escript to pharmacy. Carol Barajas [facility] Allergies As of Date: 01/22/2020 Noted Allergy Reaction BACTRIM (SULFAMETHOXAZOLE-TRIMETH*1 09/17/2016 4 - Hives ERYTHROMYCIN 12/21/2011 8 - GI Upset 11 - Vomiting NUT - UNSPECIFIED 08/08/2012 10 - Anaphylaxis Comments: Tree Nuts. Anaphylaxis. environmentals [Other] 12/21/2011 16 - Unknown Comments: Dust, tobacco, pollen, ragweed Date Reviewed: 08/13/2019 Reviewed by: Rodrigo Lamb - Fully Assessed Reason for Visit: Refill Request [94] Order(s):levETIRAcetam ER (KEPPRA XR) 750 mg 24 hr tabletTake 1 tablet by mouth every 24 hours.Disp: 30 tabletRfl: 11 Prescriptions as of 01/22/2020 Sig: LEVETIRACETAM ER 750 MG TABLE* Take 1 tablet by mouth every * ALBUTEROL SULFATE 2.5 MG/3 ML* Use 3 mL via nebulizer one ti* IPRATROPIUM BROMIDE 0.02 % SO* Use 2.5 mL via nebulizer one * FLUTICASONE 500 MCG-SALMETERO* Inhale 1 Puff as instructed t* ALBUTEROL SULFATE 2.5 MG/3 ML* Use 3 mL via nebulizer every * COMPOUNDED PRESCRIPTION PulmoAid nebulizer Use as di* PREDNISONE 10 MG TABLET 2 DAILY FOR 1 WEEK THEN 1 TAB* VENLAFAXINE ER 150 MG CAPSULE* 300 mg once daily. AZELASTINE 0.15 % (205.5 MCG)* Use 1 Maxton in each nostril t* MONTELUKAST 10 MG TABLET Take 1 tablet by mouth daily * ALBUTEROL SULFATE HFA 90 MCG/* Inhale 2 Puffs as instructed * FLUTICASONE PROPIONATE 50 MCG* Use 1 Maxton in each nostril o* LOSARTAN 50 MG TABLET Take 1 tablet by mouth once d* Patient taking differently: Take 50 mg by mouth once helen* CITALOPRAM 20 MG TABLET Take 40 mg by mouth once helen* QUETIAPINE 100 MG TABLET Take 150 mg by mouth daily at* * AMLODIPINE 5 MG TABLET Take 5 mg by mouth once daily* * HYDROCHLOROTHIAZIDE 25 MG TAB* Take 12.5 mg by mouth once da* * ALPRAZOLAM 0.5 MG TABLET Take 0.5 mg by mouth at bedti* Problem List As Of Date 01/22/2020 Noted Resolved Asthma [J45.909] 05/16/2013 More... SANTHOSH (obstructive sleep apnea) [G47.33] 05/16/2013 More... Obesity [E66.9] 05/16/2013 Hypertension [I10] 05/16/2013 Sinus arrhythmia [I49.8] 05/16/2013 More... First degree heart block [I44.0] 05/16/2013 More... Obesity, Class II, BMI 35-39.9 [E66.9] 01/09/2018 Nonintractable episodic headache [R51] 01/26/2019 Neuropathy (HCC) [G62.9] 01/26/2019 Vertigo [R42] 01/26/2019 PTSD (post-traumatic stress disorder) [F43.10] 01/26/2019 Prescriptions ordered this encounter Disp Refills Start End LEVETIRACETAM ER 750 MG TABLET,EXTEN* 30 t* 11 01/23/2020 02/22/2020 Route: ORAL Sig: Take 1 tablet by mouth every 24 hours. Medications Discontinued During This Encounter levETIRAcetam ER (KEPPRA XR) 750 mg * 30 t* 11 01/26/2019 01/23/2020 Route: ORAL Sig: Take 1 tablet by mouth every 24 hours. Disc: Reason for discontinue is not on file. Encounter Status:Closed by DARIEN GUDINO on 01/23/20 [facility] Discharge Summaryon 08-10-2017 [place] Discharge Summary [facility] ([place]) Depart Summaryon 08-04-2017 Depart Summary [facility] ([place] Discharge Note-Nursingon Discharge Note-Nursing Normal [facility] ([place]) [place] Inpatient Patient S ummaryon 08-04-2017 [place] In[facility] Patient Summary Normal [facility]) .Auto Diffon 08-03-2017 Basophils Auto #/vol (Bld) 0.00 10 3/mcL Normal 0.00-0.19 [facility] ([place]) Comment on above: Performed By: #### C BC, ADIFF, ANEU, BMP, GFR ####[address] [place], [place] [address] Basophils/100 WBC Auto (Bld) 0.4 % Normal 0.0-2.5 [facility] ([place]) Comment on above: Performed By: #### C BC, ADIFF, ANEU, BMP, GFR ####[address] [place], [place] [address] Eosinophils 0.00 10 3/mcL Normal 0.00-0.40 [facility] ([place]) Comment on above: Performed By: #### C BC, ADIFF, ANEU, BMP, GFR ####[address] [place], [place] [address] Eosinophils/100 leukocytes 0.2 % Normal 0.0-7.0 [facility] ([place]) Comment on above: Performed By: #### C BC, ADIFF, ANEU, BMP, GFR ####[address] [place], [place] [address] Lymphocytes 0.70 10 3/mcL Low 0.77-3.85 [facility] ([place]) Comment on above: Performed By: #### C BC, ADIFF, ANEU, BMP, GFR ####[address] [place], [place] [address] Lymphocytes/100 leukocytes 5.7 % Low 10.0-50.0 [facility] ([place]) Comment on above: Performed By: #### C BC, ADIFF, ANEU, BMP, GFR ####[address] [place], [place] [address] Monocytes 0.90 10 3/mcL Normal 0.15-1.00 [facility] ([place]) Comment on above: Performed By: #### C BC, ADIFF, ANEU, BMP, GFR ####[address] [place], [place] [address] Monocytes/100 leukocytes 7.0 % Normal 1.7-13.0 [facility] ([place]) Comment on above: Performed By: #### C BC, ADIFF, ANEU, BMP, GFR ####[address] [place], [place] [address] Neutrophils/100 WBC Auto (Bld) 86.7 % High 37.0-80.0 [facility] ([place]) Comment on above: Performed By: #### C BC, ADIFF, ANEU, BMP, GFR ####[address] [place], [place] [address] .GFRon 08-03-2017 eGFR (non-black) mL/min/{1.73_m2} Normal [facility] ([place]) Comment on above: Result Comment: GFR Population mean for , Non- Americans Ages 20-29 = 116 mL/min/1.73 sq.m. Ages 30-39 = 107 mL/min/1.73 sq.m. Ages 40-49 = 99 mL/min/1.73 sq.m. Ages 50-59 = 93 mL/min/1.73 sq.m. Ages 60-69 = 85 mL/min/1.73 sq.m. Ages 70+ = 75 mL/min/1.73 sq.m.Chronic Kidney Disease: Less than 60 mL/min/1.73 square metersEnd Stage Renal Disease: Less than 15 mL/min/1.73 square meters Performed By: #### C BC, ADIFF, ANEU, BMP, GFR ####[address] [place], [place] [address] eGFR (non-black) 76 ml/min/1.73sqm Normal [facility] ([place]) Comment on above: Result Comment: GFR Population mean for , Non- Americans Ages 20-29 = 116 mL/min/1.73 sq.m. Ages 30-39 = 107 mL/min/1.73 sq.m. Ages 40-49 = 99 mL/min/1.73 sq.m. Ages 50-59 = 93 mL/min/1.73 sq.m. Ages 60-69 = 85 mL/min/1.73 sq.m. Ages 70+ = 75 mL/min/1.73 sq.m.Chronic Kidney Disease: Less than 60 mL/min/1.73 square metersEnd Stage Renal Disease: Less than 15 mL/min/1.73 square meters Performed By: #### C BC, ADIFF, ANEU, BMP, GFR ####[address] [place], [place] [address] .NEUABSon 08-03-2017 Neutrophils 10.70 10 3/mcL High 2.85-6.16 [facility] ([place]) Comment on above: Performed By: #### C BC, ADIFF, ANEU, BMP, GFR ####[address] [place], [place] [address] BMPon 08-03-2017 BUN/Creatinine Ratio 20 ratio Normal 7-27 [facility] ([place]) Comment on above: Performed By: #### C BC, ADIFF, ANEU, BMP, GFR ####[address] [place], [place] [address] Calcium 8.9 mg/dL Normal 8.4-10.2 [facility]) Comment on above: Performed By: #### C BC, ADIFF, ANEU, BMP, GFR ####[address] [place], [place] [address] Chloride 101 mmol/L Normal 98-107 [facility] ([place]) Comment on above: Performed By: #### C BC, ADIFF, ANEU, BMP, GFR ####[address] [place], [place] [address] CO2 27 mmol/L Normal 23-31 [facility] ([place]) Comment on above: Performed By: #### C BC, ADIFF, ANEU, BMP, GFR ####[address] [place], [place] [address] Creatinine 0.9 mg/dL Normal 0.6-1.2 [facility] ([place]) Comment on above: Performed By: #### C BC, ADIFF, ANEU, BMP, GFR ####[address] [place], [place] [address] Electrolyte Balance 7.0 mEq/L Normal [facility] ([place]) Comment on above: Performed By: #### C BC, ADIFF, ANEU, BMP, GFR ####[address] [place], [place] [address] Glucose mass conc 143 mg/dL High 80-115 [facility] ([place]) Comment on above: Performed By: #### C BC, ADIFF, ANEU, BMP, GFR ####[address] [place], [place] [address] Potassium molar conc 4.7 mmol/L Normal 3.5-5.1 [facility] ([place]) Comment on above: Performed By: #### C BC, ADIFF, ANEU, BMP, GFR ####[address] [place], [place] [address] Sodium 135 mmol/L Low 136-146 [facility] ([place]) Comment on above: Performed By: #### C BC, ADIFF, ANEU, BMP, GFR ####[address] [place], [place] [address] Urea nitrogen 18.4 mg/dL High 7.0-18.0 [facility] ([place]) Comment on above: Performed By: #### C BC, ADIFF, ANEU, BMP, GFR ####[address] [place], [place] [address] CBCon 08-03-2017 Erythrocyte distribution width Auto Ratio (RBC) 15.4 % High 11.5-14.5 [facility] ([place]) Comment on above: Performed By: #### C BC, ADIFF, ANEU, BMP, GFR ####[address] [place], [place] [address] Erythrocytes (RBC) 4.11 10 6/mcL Low 4.20-5.40 [facility] ([place]) Comment on above: Performed By: #### C BC, ADIFF, ANEU, BMP, GFR ####[address] [place], [place] [address] Hematocrit (HCT) 32.8 % Low 37.0-47.0 [facility] ([place]) Comment on above: Performed By: #### C BC, ADIFF, ANEU, BMP, GFR ####[address] [place], [place] [address] Hemoglobin mass conc (Bld) 10.5 G/dL Low 12.0-16.0 [facility] ([place]) Comment on above: Performed By: #### C BC, ADIFF, ANEU, BMP, GFR ####[address] [place], [place] [address] MCH 25.6 pg Low 27.0-31.2 [facility] ([place]) Comment on above: Performed By: #### C BC, ADIFF, ANEU, BMP, GFR ####[address] [place], [place] [address] MCHC mass conc (RBC) 32.1 G/dL Low 33.0-37.0 [facility] ([place]) Comment on above: Performed By: #### C BC, ADIFF, ANEU, BMP, GFR ####[address] [place], [place] [address] MCV 79.7 fL Low 80.0-94.0 [facility] ([place]) Comment on above: Performed By: #### C BC, ADIFF, ANEU, BMP, GFR ####[address] [place], [place] [address] Platelet mean volume (PMV) 7.9 fL Normal 7.4-10.4 [facility] ([place]) Comment on above: Performed By: #### C BC, ADIFF, ANEU, BMP, GFR ####[address] [place], [place] [address] Platelets 204 10 3/mcL Normal 130-400 [facility] ([place]) Comment on above: Performed By: #### C BC, ADIFF, ANEU, BMP, GFR ####[address] [place], [place] [address] WBC (Leukocytes) 12.30 10 3/mcL High 4.60-10.80 [facility] ([place]) Comment on above: Performed By: #### C BC, ADIFF, ANEU, BMP, GFR ####[address] [place], [place] [address] [place] Consultation Noteon 08-03-2017 [place] Consultation Note Normal [facility] ([place]) [facility] MAIN OR Intraop Recordon 08-02-2017 AO MAIN OR Intraop Record Normal [facility] ([place]) [place] Operative Reporton 08-02-2017 [place] Operative Report Normal [facility] ([place]) XR KNEE 1 OR 2 VIEWS RIGHTon 08-02-2017 XR KNEE 1 OR 2 VIEWS RIGHT ORIGINALXR KNEE 1 OR 2 VIEWS RIGHT CLINICAL STATEMENT: Status Post Arthroplasty COMPARISON: None FINDINGS: 2 views obtained. A total right knee arthroplasty seen with anatomic alignment. No fracture seen of the [place] bone. Air and fluid noted in the soft tissues and joint space. Skin maría noted. IMPRESSION: Anatomic alignment of the prosthesis Interpreted By: Ant Toneyreliminary Report By: Ant Toney MDElectronically Signed By: Ant Toney MD Dictated Date: 08/02/2017 11:48:12 AM Prelim Date: 08/02/2017 11:48:12 AM Sign Date: 08/02/2017 11:48:46 AM Normal [facility]) .Auto Diffon 07-21-2017 Basophils Auto #/vol (Bld) 0.00 10 3/mcL Normal 0.00-0.19 [facility] ([place]) Comment on above: Performed By: #### C BC, ADIFF, ANEU, BMP, GFR ####[address] [place], [place] [address] Basophils/100 WBC Auto (Bld) 0.5 % Normal 0.0-2.5 [facility] ([place]) Comment on above: Performed By: #### C BC, ADIFF, ANEU, BMP, GFR ####[address] [place], [place] [address] Eosinophils 0.20 10 3/mcL Normal 0.00-0.40 [facility] ([place]) Comment on above: Performed By: #### C BC, ADIFF, ANEU, BMP, GFR ####[address] [place], [place] [address] Eosinophils/100 leukocytes 3.1 % Normal 0.0-7.0 [facility] ([place]) Comment on above: Performed By: #### C BC, ADIFF, ANEU, BMP, GFR ####[address] [place], [place] [address] Lymphocytes 1.20 10 3/mcL Normal 0.77-3.85 [facility] ([place]) Comment on above: Performed By: #### C BC, ADIFF, ANEU, BMP, GFR ####[address] [place], [place] [address] Lymphocytes/100 leukocytes 16.8 % Normal 10.0-50.0 [facility] ([place]) Comment on above: Performed By: #### C BC, ADIFF, ANEU, BMP, GFR ####[address] [place], [place] [address] Monocytes 0.50 10 3/mcL Normal 0.15-1.00 [facility] ([place]) Comment on above: Performed By: #### C BC, ADIFF, ANEU, BMP, GFR ####[address] [place], [place] [address] Monocytes/100 leukocytes 7.3 % Normal 1.7-13.0 [facility] ([place]) Comment on above: Performed By: #### C BC, ADIFF, ANEU, BMP, GFR ####[address] [place], [place] [address] Neutrophils/100 WBC Auto (Bld) 72.3 % Normal 37.0-80.0 [facility] ([place]) Comment on above: Performed By: #### C BC, ADIFF, ANEU, BMP, GFR ####[address] [place], [place] [address] .GFRon 07-21-2017 eGFR (non-black) mL/min/{1.73_m2} Normal [facility] ([place]) Comment on above: Result Comment: GFR Population mean for , Non- Americans Ages 20-29 = 116 mL/min/1.73 sq.m. Ages 30-39 = 107 mL/min/1.73 sq.m. Ages 40-49 = 99 mL/min/1.73 sq.m. Ages 50-59 = 93 mL/min/1.73 sq.m. Ages 60-69 = 85 mL/min/1.73 sq.m. Ages 70+ = 75 mL/min/1.73 sq.m.Chronic Kidney Disease: Less than 60 mL/min/1.73 square metersEnd Stage Renal Disease: Less than 15 mL/min/1.73 square meters Performed By: #### C BC, ADIFF, ANEU, BMP, GFR ####[address] [place], [place] [address] eGFR (non-black) 81 ml/min/1.73sqm Normal [facility] ([place]) Comment on above: Result Comment: GFR Population mean for , Non- Americans Ages 20-29 = 116 mL/min/1.73 sq.m. Ages 30-39 = 107 mL/min/1.73 sq.m. Ages 40-49 = 99 mL/min/1.73 sq.m. Ages 50-59 = 93 mL/min/1.73 sq.m. Ages 60-69 = 85 mL/min/1.73 sq.m. Ages 70+ = 75 mL/min/1.73 sq.m.Chronic Kidney Disease: Less than 60 mL/min/1.73 square metersEnd Stage Renal Disease: Less than 15 mL/min/1.73 square meters Performed By: #### C BC, ADIFF, ANEU, BMP, GFR ####[address] [place], [place] [address] .NEUABSon 07-21-2017 Neutrophils 5.00 10 3/mcL Normal 2.85-6.16 [facility] ([place]) Comment on above: Performed By: #### C BC, ADIFF, ANEU, BMP, GFR ####[address] [place], [place] [address] BMPon 07-21-2017 BUN/Creatinine Ratio 21 ratio Normal 7-27 [facility] ([place]) Comment on above: Performed By: #### C BC, ADIFF, ANEU, BMP, GFR ####[address] [place], [place] [address] Calcium 9.4 mg/dL Normal 8.4-10.2 [facility] ([place]) Comment on above: Performed By: #### C BC, ADIFF, ANEU, BMP, GFR ####[address] [place], [place] [address] Chloride 102 mmol/L Normal 98-107 [facility] ([place]) Comment on above: Performed By: #### C BC, ADIFF, ANEU, BMP, GFR ####[address] [place], [place] [address] CO2 30 mmol/L Normal 23-31 [facility] ([place]) Comment on above: Performed By: #### C BC, ADIFF, ANEU, BMP, GFR ####[address] [place], [place] [address] Creatinine 0.8 mg/dL Normal 0.6-1.2 [facility] ([place]) Comment on above: Performed By: #### C BC, ADIFF, ANEU, BMP, GFR ####[address] [place], [place] [address] Electrolyte Balance 8.0 mEq/L Normal [facility] ([place]) Comment on above: Performed By: #### C BC, ADIFF, ANEU, BMP, GFR ####[address] [place], [place] [address] Glucose mass conc 108 mg/dL Normal 80-115 [facility] ([place]) Comment on above: Performed By: #### C BC, ADIFF, ANEU, BMP, GFR ####[address] [place], [place] [address] Potassium molar conc 3.3 mmol/L Low 3.5-5.1 [facility] ([place]) Comment on above: Performed By: #### C BC, ADIFF, ANEU, BMP, GFR ####[address] [place], [place] [address] Sodium 140 mmol/L Normal 136-146 [facility] ([place]) Comment on above: Performed By: #### C BC, ADIFF, ANEU, BMP, GFR ####[address] [place], [place] [address] Urea nitrogen 16.8 mg/dL Normal 7.0-18.0 [facility] ([place]) Comment on above: Performed By: #### C BC, ADIFF, ANEU, BMP, GFR ####[address] [place], [place] [address] CBCon 07-21-2017 Erythrocyte distribution width Auto Ratio (RBC) 15.6 % High 11.5-14.5 [facility] ([place]) Comment on above: Performed By: #### C BC, ADIFF, ANEU, BMP, GFR ####[address] [place], [place] [address] Erythrocytes (RBC) 4.68 10 6/mcL Normal 4.20-5.40 [facility] ([place]) Comment on above: Performed By: #### C BC, ADIFF, ANEU, BMP, GFR ####[address] [place], [place] [address] Hematocrit (HCT) 37.1 % Normal 37.0-47.0 [facility] ([place]) Comment on above: Performed By: #### C BC, ADIFF, ANEU, BMP, GFR ####[address] [place], [place] [address] Hemoglobin mass conc (Bld) 12.2 G/dL Normal 12.0-16.0 [facility] ([place]) Comment on above: Performed By: #### C BC, ADIFF, ANEU, BMP, GFR ####[address] [place], [place] [address] MCH 25.9 pg Low 27.0-31.2 [facility] ([place]) Comment on above: Performed By: #### C BC, ADIFF, ANEU, BMP, GFR ####[address] [place], [place] [address] MCHC mass conc (RBC) 32.7 G/dL Low 33.0-37.0 [facility] ([place]) Comment on above: Performed By: #### C BC, ADIFF, ANEU, BMP, GFR ####[address] [place] [id number] MCV 79.3 fL Low 80.0-94.0 [facility] ([place]) Comment on above: Performed By: #### C BC, ADIFF, ANEU, BMP, GFR ####[address] [place], [place] [address] Platelet mean volume (PMV) 8.4 fL Normal 7.4-10.4 [facility] ([place]) Comment on above: Performed By: #### C BC, ADIFF, ANEU, BMP, GFR ####[address] [place], [place] [address] Platelets 206 10 3/mcL Normal 130-400 [facility] ([place]) Comment on above: Performed By: #### C BC, ADIFF, ANEU, BMP, GFR ####[address] [place], [place] [address] WBC (Leukocytes) 7.00 10 3/mcL Normal 4.60-10.80 [facility] ([place]) Comment on above: Performed By: #### C BC, ADIFF, ANEU, BMP, GFR ####[address] [place], [place] [address] Vital Signs Date Time Vital Sign Value Performing Clinician Faci [facility]ry[facility] 03-25-2025 16:02-0400 Body height 162.[address] Davion Peoples MD Work Phone: [facility] 03-25-2025 16:02-0400 Body mass index (BMI) [Ratio] 35.6 kg/m2 Dr. Davion Peoples MD Work Phone: [facility] 03-25-2025 16:02-0400 Body temperature 98 [degF] Dr. Davion Peoples MD Work Phone: [facility] 03-25-2025 16:02-0400 Body weight 94.[address] Davion Peoples MD Work Phone: [facility] 03-25-2025 16:02-0400 Diastolic blood pressure 70 mm[Hg] Dr. Davion Peoples MD Work Phone: [facility] 03-25-2025 16:02-0400 Heart rate 63 /min Dr. Davion Peoples MD Work Phone: [facility] 03-25-2025 16:02-0400 Respiratory rate 16 /min Dr. Davion Peoples MD Work Phone: [facility] 03-25-2025 16:02-0400 SaO2% (BldA) [Mass fraction] 99 % Dr. Davion Peoples MD Work Phone: [facility] 03-25-2025 16:02-0400 Systolic blood pressure 118 mm[Hg] Dr. Davion Peoples MD Work Phone: [facility] 03-05-2025 13:31-0400 Body mass index (BMI) [Ratio] 34.25 kg/m2 Sheela Queener PA-C Work Phone: [facility] 03-05-2025 13:31-0400 Body weight 94.8 kg Sheela Queener PA-C Work Phone: [facility] 03-05-2025 13:31-0400 Diastolic blood pressure 75 mm[Hg] Sheela Queener PA-C Work Phone: [facility] 03-05-2025 13:31-0400 Heart rate 75 /min Sheela Queener PA-C Work Phone: [facility] 03-05-2025 13:31-0400 Respiratory rate 16 /min Sheela Queener PA-C Work Phone: [facility] 03-05-2025 13:31-0400 SaO2% (BldA) [Mass fraction] 98 % Sheela Queener PA-C Work Phone: [facility] 03-05-2025 13:31-0400 Systolic blood pressure 111 mm[Hg] Sheela Queener PA-C Work Phone: [facility] 11-28-2024 15:34-0400 Heart rate 76 /min Dr. Davion Peoples MD Work Phone: [facility] 11-28-2024 15:34-0400 Respiratory rate 18 /min Dr. Davion Peoples MD Work Phone: [facility] 11-28-2024 13:33-0400 Body temperature 97.7 [degF] Dr. Davion Peoples MD Work Phone: [facility] 11-28-2024 13:33-0400 Diastolic blood pressure 52 mm[Hg] Dr. Davion Peoples MD Work Phone: 6(488)196-998562 [place] [address] 11-28-2024 13:33-0400 SaO2% (BldA) [Mass fraction] 99 % Dr. Davion Peoples MD Work Phone: 7(027)446-889162 [place] [address] 11-28-2024 13:33-0400 Systolic blood pressure 118 mm[Hg] Dr. Davion Peoples MD Work Phone: 1(077)179-254231 [place] [address] 11-28-2024 01:57-0400 Inhaled oxygen flow rate 2 L/min Dr. Davion Peoples MD Work Phone: 3(747)093-538162 [place] [address] 11-26-2024 14:42-0400 Body height 162.[address] Davion Peoples MD Work Phone: 4(345)187-235362 [place] [address] 11-26-2024 14:42-0400 Body mass index (BMI) [Ratio] 38.2 kg/m2 Dr. Davion Peoples MD Work Phone: 3(434)868-936362 [place] [address] 11-26-2024 14:42-0400 Body weight [address] Davion Peoples MD Work Phone: 6(125)373-504862 [place] [address] 11-08-2024 15:28-0400 Diastolic blood pressure 64 mm[Hg] Dr. Davion Peoples MD Work Phone: 4(847)507-952431 [place] [address] 11-08-2024 15:28-0400 Systolic blood pressure 122 mm[Hg] Dr. Davion Peoples MD Work Phone: 1(709)750-297631 [place] [address] 11-08-2024 07:49-0400 Body mass index (BMI) [Ratio] 37.8 kg/m2 Dr. Davion Peoples MD Work Phone: [facility] 11-08-2024 07:49-0400 Body weight 99.[address] Davion Peoples MD Work Phone: [facility] 11-08-2024 07:49-0400 Heart rate 84 /min Dr. Davion Peoples MD Work Phone: [facility] 11-08-2024 07:49-0400 Respiratory rate 20 /min Dr. Davion Peoples MD Work Phone: [facility] 11-08-2024 07:49-0400 SaO2% (BldA) [Mass fraction] 96 % Dr. Davion Peoples MD Work Phone: [facility] 06-15-2024 10:30-0400 Body mass index (BMI) [Ratio] 31.3 kg/m2 Darien Gudino Jr., MD Work Phone: [facility] 06-15-2024 10:30-0400 Body weight 86.64 kg Darien Gudino Jr., MD Work Phone: [facility] 06-15-2024 10:30-0400 Diastolic blood pressure 68 mm[Hg] Darien Gudino Jr., MD Work Phone: [facility] 06-15-2024 10:30-0400 Heart rate 66 /min Darien Gudino Jr., MD Work Phone: [facility] 06-15-2024 10:30-0400 Respiratory rate 18 /min Darien Gudino Jr., MD Work Phone: [facility] 06-15-2024 10:30-0400 SaO2% (BldA) [Mass fraction] 96 % Darien Gudino Jr., MD Work Phone: [facility] 06-15-2024 10:30-0400 Systolic blood pressure 129 mm[Hg] Darien Gudino Jr., MD Work Phone: [facility] 10-18-2023 15:30-0500 Body temperature 98 [degF] Dr. Ruel Peoples Work Phone: [facility] 10-18-2023 15:30-0500 Diastolic blood pressure 62 mm[Hg] Dr. Ruel Peoples Work Phone: [facility] 10-18-2023 15:30-0500 Heart rate 81 /min Dr. Ruel Poeples Work Phone: [facility] 10-18-2023 15:30-0500 Respiratory rate 18 /min Dr. Ruel Peoples Work Phone: [facility] 10-18-2023 15:30-0500 SaO2% (BldA) [Mass fraction] 94 % Dr. Ruel Peoples Work Phone: [facility] 10-18-2023 15:30-0500 Systolic blood pressure 107 mm[Hg] Dr. Ruel Peoples Work Phone: [facility] 10-18-2023 06:00-0500 Body mass index (BMI) [Ratio] 31.2 kg/m2 Dr. Ruel Peoples Work Phone: [facility] 10-18-2023 06:00-0500 Body weight 82.[address] Ruel Peoples Work Phone: [facility] 10-17-2023 09:49-0500 Body height 162.[address] Davion Peoples Work Phone: [facility] 10-17-2023 06:50-0500 Inhaled oxygen flow rate 2 L/min Dr. Ruel Peoples Work Phone: [facility] 10-12-2023 19:39-0500 Body height 162.[address] Ruel Peoples Work Phone: [facility] 10-12-2023 19:39-0500 Body mass index (BMI) [Ratio] 31.3 kg/m2 Dr. Ruel Peoples Work Phone: [facility] 10-12-2023 19:39-0500 Body weight 82.[address] Ruel Peoples Work Phone: [facility] 10-12-2023 19:10-0500 Body temperature 97.4 [degF] Dr. Ruel Peoples Work Phone: [facility] 10-12-2023 19:10-0500 Diastolic blood pressure 74 mm[Hg] Dr. Ruel Peoples Work Phone: [facility] 10-12-2023 19:10-0500 Heart rate 78 /min Dr. Ruel Peoples Work Phone: [facility] 10-12-2023 19:10-0500 Respiratory rate 18 /min Dr. Ruel Peoples Work Phone: [facility] 10-12-2023 19:10-0500 SaO2% (BldA) [Mass fraction] 97 % Dr. Ruel Peoples Work Phone: [facility] 10-12-2023 19:10-0500 Systolic blood pressure 105 mm[Hg] Dr. Ruel Peoples Work Phone: [facility] 07-20-2023 15:10-0500 Body weight 99.79 kg Analia Juventino PA-C Work Phone: [facility] 07-20-2023 15:10-0500 Diastolic blood pressure 72 mm[Hg] Analia Juventino PA-C Work Phone: [facility] 07-20-2023 15:10-0500 Heart rate 79 /min Analia Juventino PA-C Work Phone: [facility] 07-20-2023 15:10-0500 SaO2% (BldA) [Mass fraction] 99 % Analia Juventino PA-C Work Phone: [facility] 07-20-2023 15:10-0500 Systolic blood pressure 114 mm[Hg] Analia Juventino PA-C Work Phone: [facility] 07-20-2023 15:02-0500 Body height 166.4 cm Pulm Wstr Work Phone: [facility] 07-20-2023 15:02-0500 Body weight 99.79 kg Pulm Wstr Work Phone: [facility] 2023 10:03-0400 Body height 167.[address] Ruel Peoples Work Phone: [facility] 2023 10:03-0400 Body mass index (BMI) [Ratio] 35.6 kg/m2 Dr. Ruel Peoples Work Phone: [facility] 2023 10:03-0400 Body weight 100.[address] Ruel Peoples Work Phone: [facility] 2023 10:03-0400 Diastolic blood pressure 76 mm[Hg] Dr. Ruel Peoples Work Phone: [facility] 2023 10:03-0400 Heart rate 107 /min Dr. Ruel Peoples Work Phone: [facility] 2023 10:03-0400 Respiratory rate 18 /min Dr. Ruel Peoples Work Phone: [facility] 2023 10:03-0400 SaO2% (BldA) [Mass fraction] 98 % Dr. Ruel Peoples Work Phone: [facility] 2023 10:03-0400 Systolic blood pressure 125 mm[Hg] Dr. Ruel Peoples Work Phone: [facility] 05-10-2023 13:23-0400 Body mass index (BMI) [Ratio] 36.7 kg/m2 Dr. Ruel Peoples Work Phone: [facility] 05-10-2023 13:23-0400 Body weight 103.[address] Ruel Peoples Work Phone: [facility] 05-10-2023 13:23-0400 Diastolic blood pressure 91 mm[Hg] Dr. Ruel Peoples Work Phone: [facility] 05-10-2023 13:23-0400 Heart rate 69 /min Dr. Ruel Peoples Work Phone: [facility] 05-10-2023 13:23-0400 Respiratory rate 18 /min Dr. Ruel Peoples Work Phone: [facility] 05-10-2023 13:23-0400 SaO2% (BldA) [Mass fraction] 98 % Dr. Ruel Peoples Work Phone: [facility] 05-10-2023 13:23-0400 Systolic blood pressure 150 mm[Hg] Dr. Ruel Peoples Work Phone: [facility] 05-10-2023 09:40-0400 Body height 167.[address] Ruel Peoples Work Phone: [facility] 05-10-2023 09:40-0400 Body temperature 98 [degF] Dr. Ruel Peoples Work Phone: [facility] 04-29-2023 15:09-0400 Body mass index (BMI) [Ratio] 32.8 kg/m2 Dr. Ruel Peoples Work Phone: [facility] 04-29-2023 15:09-0400 Body weight 95.[address] Ruel Peoples Work Phone: [facility] 04-29-2023 15:09-0400 Diastolic blood pressure 87 mm[Hg] Dr. Ruel Peoples Work Phone: [facility] 04-29-2023 15:09-0400 Heart rate 110 /min Dr. Ruel Peoples Work Phone: [facility] 04-29-2023 15:09-0400 Respiratory rate 18 /min Dr. Ruel Peoples Work Phone: [facility] 04-29-2023 15:09-0400 SaO2% (BldA) [Mass fraction] 99 % Dr. Ruel Peoples Work Phone: [facility] 04-29-2023 15:09-0400 Systolic blood pressure 134 mm[Hg] Dr. Ruel Peoples Work Phone: [facility] 02-25-2023 10:00-0400 Body weight 99.79 kg Analia Rivera PA-C Work Phone: [facility] 02-11-2023 09:15-0400 Body height 170.[address] Ruel Peoples Work Phone: [facility] 02-11-2023 09:15-0400 Body mass index (BMI) [Ratio] 33.6 kg/m2 Dr. Ruel Peoples Work Phone: [facility] 02-11-2023 09:15-0400 Body weight 97.[address] Ruel Peoples Work Phone: [facility] 02-11-2023 09:15-0400 Diastolic blood pressure 80 mm[Hg] Dr. Ruel Peoples Work Phone: [facility] 02-11-2023 09:15-0400 Heart rate 111 /min Dr. Ruel Peoples Work Phone: [facility] 02-11-2023 09:15-0400 Respiratory rate 20 /min Dr. Ruel Peoples Work Phone: [facility] 02-11-2023 09:15-0400 Systolic blood pressure 131 mm[Hg] Dr. Ruel Peoples Work Phone: [facility] 01-26-2023 07:11-0400 Body height 170.[address] Ruel Peoples Work Phone: [facility] 01-26-2023 07:11-0400 Body mass index (BMI) [Ratio] 33.6 kg/m2 Dr. Ruel Peoples Work Phone: [facility] 01-26-2023 07:11-0400 Body weight 97.[address] Ruel Peoples Work Phone: [facility] 12-29-2022 10:12-0400 Body height 170.[address] Ruel Peoples Work Phone: [facility] 12-23-2022 09:58-0400 Body temperature 97.9 [degF] Kandice Dahlhausen [employer] Work Phone: [facility] 12-23-2022 09:58-0400 Body weight 97.52 kg Kandice Dahlhausen [employer]PER[employer]OR [employer] Work Phone: [facility] 12-23-2022 09:58-0400 Diastolic blood pressure 78 mm[Hg] Kandice Dahlhausen [employer]PER[employer]OR [employer] Work Phone: [facility] 12-23-2022 09:58-0400 Heart rate 69 /min Kandice Dahlhausen SUPER[employer]OR [employer] Work Phone: [facility] 12-23-2022 09:58-0400 Respiratory rate 16 /min Kandice Dahlhausen [employer]PER[employer] Work Phone: [facility] 12-23-2022 09:58-0400 SaO2% (BldA) [Mass fraction] 96 % Kandice Dahlhausen [employer] Work Phone: [facility] 12-23-2022 09:58-0400 Systolic blood pressure 134 mm[Hg] Kandice Dahlhausen [employer] Work Phone: [facility] 12-15-2022 14:50-0400 Body mass index (BMI) [Ratio] 33.6 kg/m2 Dr. Ruel Peoples Work Phone: [facility] 12-15-2022 14:50-0400 Body weight 97.[address] Ruel Peoples Work Phone: [facility] 12-15-2022 14:50-0400 Diastolic blood pressure 65 mm[Hg] Dr. Ruel Peoples Work Phone: [facility] 12-15-2022 14:50-0400 Heart rate 107 /min Dr. Ruel Peoples Work Phone: [facility] 12-15-2022 14:50-0400 Respiratory rate 20 /min Dr. Ruel Peoples Work Phone: [facility] 12-15-2022 14:50-0400 Systolic blood pressure 123 mm[Hg] Dr. Ruel Peoples Work Phone: [facility] 05-31-2022 14:45-0400 Body weight 96.16 kg Hailey Eden MD Work Phone: [facility] 05-31-2022 14:45-0400 Diastolic blood pressure 63 mm[Hg] Hailey Eden MD Work Phone: [facility] 05-31-2022 14:45-0400 Heart rate 88 /min Hailey Eden MD Work Phone: [facility] 05-31-2022 14:45-0400 SaO2% (BldA) [Mass fraction] 98 % Hailey Eden MD Work Phone: [facility] 05-31-2022 14:45-0400 Systolic blood pressure 139 mm[Hg] Hailey Eden MD Work Phone: [facility] 04-22-2022 14:31-0400 Body weight 97.98 kg Analia Juventino PA-C Work Phone: [facility] 04-22-2022 14:31-0400 Diastolic blood pressure 80 mm[Hg] Analia Juventino PA-C Work Phone: [facility] 04-22-2022 14:31-0400 Heart rate 96 /min Analia Juventino PA-C Work Phone: [facility] 04-22-2022 14:31-0400 Respiratory rate 19 /min Analia Juventino PA-C Work Phone: [facility] 04-22-2022 14:31-0400 SaO2% (BldA) [Mass fraction] 96 % Analia Rivera PA-C Work Phone: [facility] 04-22-2022 14:31-0400 Systolic blood pressure 130 mm[Hg] Analia ALBERT-C Work Phone: [facility] 04-22-2022 14:27-0400 Body height 166.4 cm Respiratory Wstr Work Phone: [facility] 04-22-2022 14:27-0400 Body weight 97.98 kg Respiratory Wstr Work Phone: [facility] 01-07-2022 14:30-0400 Body temperature 97.2 [degF] Kandice Dahlhausen [employer] Work Phone: [facility] 01-07-2022 14:30-0400 Body weight 100.79 kg Kandice Dahlhausen SUPER[employer] Work Phone: [facility] 01-07-2022 14:30-0400 Diastolic blood pressure 72 mm[Hg] Kandice Dahlhausen SUPER[employer]OR [employer] Work Phone: [facility] 01-07-2022 14:30-0400 Heart rate 129 /min Kandice Dahlhausen SUPER[employer]OR [employer] Work Phone: [facility] 01-07-2022 14:30-0400 Respiratory rate 20 /min Kandice Dahlhausen SUPER[employer]OR [employer] Work Phone: [facility] 01-07-2022 14:30-0400 SaO2% (BldA) [Mass fraction] 96 % Kandice Dahlhausen [employer] Work Phone: [facility] 01-07-2022 14:30-0400 Systolic blood pressure 112 mm[Hg] Kandice Dahlhausen [employer] Work Phone: [facility] 11-06-2021 14:27-0400 Body temperature 97.2 [degF] Darien Gudino Jr., MD Work Phone: [facility] 11-06-2021 14:27-0400 Body weight 102.51 kg Darien Gudino Jr., MD Work Phone: [facility] 11-06-2021 14:27-0400 Diastolic blood pressure 62 mm[Hg] Darien Gudino Jr., MD Work Phone: [facility] 11-06-2021 14:27-0400 Heart rate 102 /min Darien Gudino Jr., MD Work Phone: [facility] 11-06-2021 14:27-0400 Respiratory rate 18 /min Darien Gudino Jr., MD Work Phone: [facility] 11-06-2021 14:27-0400 SaO2% (BldA) [Mass fraction] 97 % Darien Gudino Jr., MD Work Phone: [facility] 11-06-2021 14:27-0400 Systolic blood pressure 128 mm[Hg] Darien Gudino Jr., MD Work Phone: [facility] Encounters Encounter Date Encounter Type Care Provider Facility Start: 03-27-2025 End: 04-05-2025 Refill Analia Rivera PA-C Work Phone: Pulmonary Medicine Comment on above: Refill Request Start: 03-25-2025 End: 03-25-2025 Patient encounter procedure Subha ALBERT -[facility] Work Phone: Start: 03-25-2025 End: 03-25-[address] Davion Peoples MD Work Phone: [facility] Start: 03-05-2025 End: 03-05-2025 Patient encounter procedure Sheela Mclain PA-C Work Phone: Neurology Comment on above: Neuropathy (Primary Dx); Nonintractable episodic headache, unspecified headache type; RLS (restless legs syndrome); SANTHOSH (obstructive sleep apnea); Recurrent falls; Restless legs syndrome; Degeneration of intervertebral disc of lumbosacral region, unspecified whether pain present; Left hand pain; Carpal tunnel syndrome of left wrist Start: 03-05-2025 End: 03-05-2025 ambulatory DAVION PEOPLES Facility:[facility] Start: 02-15-2025 End: 02-15-2025 Refill Darien Gudino MD Work Phone: Neurology Comment on above: Refill Request Start: 02-11-2025 End: 02-11-2025 Telephone encounter Shruti Vincent MD Work Phone: Neurology Comment on above: Results (Labs ) Start: 02-05-2025 ambulatory ANALIA RIVERA Facil ity:[facility] Start: 02-05-2025 End: 02-05-2025 Subsequent hospital visit by physician [facility] (I-Stat) Work Phone: Cat Scan Comment on above: Lung nodules [R91.8] Start: 01-23-2025 End: 01-23-2025 ambulatory ANALIA RIVERA Facility:[facility] Start: 01-23-2025 End: 01-23-2025 Patient encounter procedure Analia Rivera PA-C Work Phone: Pulmonary Medicine Comment on above: Severe persistent as thma without complication (HCC) (Primary Dx); Lung nodules; COVID-19 long hauler; Sjogren's syndrome, with unspecified organ involvement (HCC); Former smoker Start: 01-11-2025 ambulatory DAVION PEOPLES Fa cility:[facility] Start: 12-27-2024 End: 12-27-2024 Refill Kandice Jung APRN.CNP Work Phone: Neurology Start: 12-20-2024 End: 12-25-2024 Refill Darien Gudino MD Work Phone: Neurology Comment on above: Refill Request Start: 11-27-2024 Encounter for other preprocedural examination Andrew Fox [facility] Start: 11-27-2024 Non-patient / Non-visit Dr. Danyelle Perez [facility] Work Phone: Start: 11-26-2024 Non-patient / Non-visit Dr. Makeda Fox MD -[facility] Work Phone: Start: 11-26-2024 End: 11-28-2024 ambulatory Andrew Rodriguez Facility:[facility] Start: 11-26-2024 End: 11-28-2024 Evaluation and management of inpatient Dr. Andrew Rodriguez DO -Medical Surgical 3 Work Phone: Start: 11-26-2024 End: 11-28-[address] Davion Peoples MD Work Phone: [facility] Work Phone: Start: 11-08-2024 Encounter for preprocedural cardiovascular examination Kacey ALBERT [facility] Start: 11-08-2024 End: 11-08-2024 Patient encounter procedure Kacey ALBERT -[facility] Work Phone: Start: 11-08-2024 End: 11-08-2024 ambulatory Davion Peoples Facility:[facility] Start: 11-07-2024 End: 11-07-2024 ambulatory Analia Rivera PA-C Work Phone: Pulmonary Medicine Comment on above: checking in Start: 11-07-2024 End: 11-07-2024 E-mail encounter from caregiver Analia Rivera PA-C Work Phone: Pulmonary Medicine Start: 10-09-2024 End: 10-09-[address] Davion Peoples MD -Laboratory, [facility] Start: 10-09-2024 End: 10-09-2024 ambulatory Davion Peoples Facility:[facility] Start: 09-25-2024 ambulatory Davion Peoples Faci lity:[facility] Start: 09-06-2024 End: 09-06-2024 Refill Darien Gudino MD Work Phone: Neurology Comment on above: Refill Request Start: 09-03-2024 ambulatory Andrew Rodriguez Facili ty:[facility] Start: 07-25-2024 End: 07-25-2024 ambulatory Davion Peoples Facility:[facility] Start: 06-25-2024 End: 06-25-2024 Telephone encounter Darien Gudino MD Work Phone: Neurology Start: 06-20-2024 ambulatory Andrew Kimle Facili ty:[facility] Start: 06-18-2024 End: 06-25-2024 Telephone encounter Darien Gudino MD Work Phone: Neurology Comment on above: Patient Question Start: 06-15-2024 End: 06-15-2024 ambulatory DAVION PEOPLES Facility:[facility] Start: 06-15-2024 End: 06-15-2024 ambulatory DAVION PEOPLES Facility:[facility] Start: 06-15-2024 End: 06-15-2024 Patient encounter procedure Darien Gudino MD Work Phone: Neurology Comment on above: Obstructive sleep ap jewel (adult) (pediatric) (Primary Dx); Encounter for long-term (current) use of medications; Neuropathy; Restless legs syndrome; Recurrent falls; Balance problems; Nonintractable episodic headache, unspecified headache type Start: 06-14-2024 Encounter for other preprocedural examination Davion Glynnmonet [facility] Start: 05-16-2024 End: 05-16-2024 ambulatory Davion Peoples Facility:[facility] Start: 05-02-2024 ambulatory Davion Peoples Faci lity:[facility] Start: 05-01-2024 ambulatory Perryhermilo Peoples Faci lity:[facility] Start: 05-01-2024 End: 05-01-2024 ambulatory Perryhermilo Peoples Facility:[facility] Start: 04-26-2024 ambulatory Andrew Rodriguez Facili ty:[facility] Start: 04-24-2024 End: 04-26-2024 Telephone encounter Darien Gudino MD Work Phone: Sleep Comment on above: Opened In Error Refill Request Start: 04-05-2024 End: 04-05-2024 ambulatory Radha Moore Facility:[facility] Start: 04-02-2024 Refill Analia Rodriguez PA-C Work Phone: Pulmonary Medicine Comment on above: Refill Request Start: 04-02-2024 End: 04-02-2024 ambulatory Radha Moore Facility:[facility] Start: 03-28-2024 End: 03-28-2024 ambulatory Davion Peoples Facility:[facility] [place] [place] Start: 02-03-2024 Telephone encounter Darien Gudino MD Work Phone: Neurology Comment on above: Patient Update Start: 12-15-2023 Telephone encounter Darien Gudino MD Work Phone: Neurology Start: 12-01-[address] Perry Peoples Work Phone: [facility] Start: 11-29-2023 End: 11-29-[address] Davion Peoples Work Phone: [facility] Work Phone: Start: 11-29-2023 End: 11-29-[address] Davion Peoples Work Phone: [facility] Work Phone: Start: 11-24-[address] Perry Peoples Work Phone: [facility] Start: 11-17-[address] Perry Peoples Work Phone: [facility] Start: 11-10-[address] Perry Peoples Work Phone: [facility] Start: 11-03-[address] Perry Peoples Work Phone: [facility] Start: 11-02-2023 End: 11-02-[address] Davion Peoples Work Phone: [facility] Work Phone: Start: 10-27-[address] Perry Peoples Work Phone: [facility] Start: 10-25-2023 End: 10-25-[address] Davion Peoples Work Phone: [facility] Work Phone: Start: 10-24-2023 Telephone encounter Darien Gudino MD Work Phone: Neurology Comment on above: Results Start: 10-24-[address] Perry Peoples Work Phone: [facility] Start: 10-20-[address] Perry Peoples Work Phone: [facility] Start: 10-19-2023 End: 10-19-[address] Davion Peoples Work Phone: [facility] Work Phone: Start: 10-18-2023 Refill Darien mcclure MD Work Phone: Neurology Comment on above: Refill Request Start: 10-18-2023 Non-patient / Non-visit Dr. Omi Peoples Work Phone: [facility] Work Phone: Start: 10-17-2023 Non-patient / Non-visit Dr. Omi Peoples Work Phone: [facility] Work Phone: Start: 10-16-2023 Non-patient / Non-visit Dr. Omi Peoples Work Phone: [facility] Work Phone: Start: 10-15-2023 Non-patient / Non-visit Dr. Omi Peoples Work Phone: [facility] Work Phone: Start: 10-14-2023 Non-patient / Non-visit Dr. Omi Peoples Work Phone: [facility] Work Phone: Start: 10-13-2023 Non-patient / Non-visit Dr. Omi Peoples Work Phone: [facility] Work Phone: Start: 10-13-2023 End: 10-13-2023 Non-patient / Non-visit Dr. Ruel Peoples Work Phone: [facility] Work Phone: Start: 10-12-2023 End: 10-18-2023 Evaluation and management of inpatient Dr. Ruel Peoples Work Phone: [facility]-Progressive Care Unit Work Phone: Start: 07-21-2023 Refill Darien mcclure MD Work Phone: Neurology Comment on above: Refill Request Start: 07-20-2023 End: 07-20-2023 Office outpatient visit 25 minutes Analia Rivera PA-C Work Phone: Pulmonary Medicine Comment on above: Severe persistent as thma without complication (Primary Dx); Sjogren's syndrome, with unspecified organ involvement (HCC); Lung nodules Start: 07-20-2023 End: 07-20-2023 ambulatory Pulm Lab [facility] Work Phone: PULM LAB [facility] Comment on above: Spirometry Start: 07-20-2023 End: 07-20-2023 Patient encounter procedure Pulm [facility] Work Phone: [facility] Start: 07-12-2023 End: 07-12-[address] Ruel Peoples Work Phone: [facility] Work Phone: Start: 07-12-2023 End: 07-12-[address] Ruel Peoples Work Phone: [facility] Start: 07-01-2023 End: 07-01-2023 Subsequent hospital visit by physician [facility] (I-Stat) Work Phone: Cat Scan Comment on above: Lung nodules [R91.8] Start: 2023 End: [address] Ruel Peoples Work Phone: [facility] Work Phone: Start: 06-03-2023 Telephone encounter [facility] Provider Shawna n Management Comment on above: Future Appointment Start: 06-01-2023 End: 06-01-[address] Ruel Peoples Work Phone: [facility] Work Phone: Start: 06-01-2023 End: 06-01-[address] [facility] Work [facility]: Start: 05-31-2023 End: 05-31-2023 Subsequent hospital visit by physician [employer] [employer] [facility] (I-Stat/1.5t) Work Phone: Radiology Comment on above: Acute left-sided low back pain with left-sided sciatica [M54.42] Start: 05-26-2023 End: 05-26-[address] Ruel Peoples Work Phone: [facility] Start: 05-20-2023 E-mail encounter fro m caregiver [facility] Provider JOSIANE MORROW Start: 05-20-2023 Patient encounter procedure [facility] Provider Pain Management Comment on above: Instructions for Up oming Appointment Start: 05-10-2023 Non-patient / Non-visit Dr. Omi Peoples Work Phone: [facility] Work Phone: Start: 05-10-2023 End: 05-10-2023 Emergency department patient visit Dr. Ruel Peoples Work Phone: [facility]-Emergency Department Work Phone: Start: 05-10-2023 Non-patient / Non-visit Dr. Omi Peoples Work Phone: [facility] Start: 05-10-2023 End: 05-10-[address] Ruel Peoples Work Phone: [facility] Work Phone: Start: 05-10-2023 End: 05-10-[address] [facility] Work [facility] Start: 05-05-[address] Marc Peoples [facility] Work [facility]: Start: 04-29-2023 End: 04-29-[address] Ruel Peoples Work Phone: [facility] Work Phone: Start: 04-19-2023 Telephone encounter Kandice Jones APRN.CNP Work Phone: Neurology [facility] Comment on above: Medication Problem ( Pregabalin approval ) Start: 04-18-2023 Refill Analia Rodriguez PA-C Work Phone: Pulmonary Medicine Comment on above: Refill Request Refill Request; Refi ll Request Start: 04-11-2023 End: 04-11-[address] Ruel Peoples Work Phone: [facility] Work Phone: Start: 04-11-2023 End: 04-11-[address] Ruel Peoples Work Phone: [facility]-Cat Scan, [facility] Work Phone: Start: 04-07-2023 Refill Analia Blackman Ryley donita PA-C Work Phone: Pulmonary Medicine Comment on above: Refill Request Start: 02-27-2023 ambulatory Analia Blackman Ryley donita PA-C Work Phone: Pulmonary Medicine Comment on above: Augmentin Start: 02-25-2023 End: 02-25-2023 Subsequent hospital visit by physician [facility] Work Phone: Radiology Comment on above: Dyspnea and respirat ory abnormalities [R06.00, R06.89] Start: 02-25-2023 End: 02-25-2023 Patient encounter procedure Analia Rivera PA-C Work Phone: Pulmonary Medicine Comment on above: Dyspnea and respirat ory abnormalities (Primary Dx); Acute bronchitis, unspecified organism; Sinobronchitis; Severe persistent asthma without complication; COVID-19 long hauler; Sjogren's syndrome, with unspecified organ involvement (HCC); SANTHOSH (obstructive sleep apnea); Lung nodule Start: 02-11-2023 End: 02-11-[address] Ruel Peoples Work Phone: [facility] Work Phone: Start: 02-11-2023 End: 02-11-[address] Ruel Peoples Work Phone: [facility] Work Phone: Start: 02-11-2023 End: 02-11-[address] Ruel Peoples Work Phone: [facility]-Cardiac Rehab Work Phone: Start: 01-28-2023 Non-patient / Non-visit Dr. Omi Peoples Work Phone: [facility] Start: 01-26-2023 End: 01-26-2023 Admission to same day surgery center Dr. Ruel Peoples Work Phone: [facility]-Terminal System Operator/Special Procedures Start: 01-26-2023 End: 01-26-[address] Rule Peoples Work Phone: [facility] Work Phone: Start: 01-25-2023 Telephone encounter Hailey Eden MD Work Phone: Pulmonary Medicine Comment on above: Manufacturing Assistant - O ther Start: 01-25-2023 End: 01-25-[address] Ruel Peoples Work Phone: [facility] Start: 01-12-2023 Non-patient / Non-visit Dr. Omi Peoples Work Phone: [facility] Start: 01-06-2023 Non-patient / Non-visit Dr. Omi Peoples Work Phone: [facility] Start: 01-06-2023 End: 01-06-[address] Ruel Peoples Work Phone: [facility]-Cardiovascular Services Start: 01-02-2023 ambulatory Hailey Eden MD Work Phone: [facility] Start: 01-02-2023 Patient encounter procedure Hailey Eden MD Work Phone: Pulmonary Medicine Comment on above: Appointment needed Start: 12-29-2022 End: 12-29-[address] Ruel Peoples Work Phone: [facility] Work Phone: Start: 12-29-2022 End: 12-29-[address] Ruel Peoples Work Phone: [facility]-Outpatient Bone Densitometry Start: 12-23-2022 End: 12-23-2022 Patient encounter procedure Kandice Jung APRN.CNP Work Phone: Neurology Comment on above: Neuropathy (Primary Dx); RLS (restless legs syndrome); Nonintractable episodic headache, unspecified headache type; Transient cerebral ischemia, unspecified type; Aphasia; Balance problems; SANTHOSH (obstructive sleep apnea); Low back pain, unspecified back pain laterality, unspecified chronicity, unspecified whether sciatica present; Sciatica of right side; Tinnitus of both ears; Vertigo Start: 12-15-[address] Jason Peoples Work Phone: [facility] Start: 12-15-2022 End: 12-15-2022 Admission to same day surgery center Dr. Ruel Peoples Work Phone: [facility] Start: 12-15-2022 End: 12-15-[address] Ruel Peoples Work Phone: [facility] Start: 11-15-2022 End: 11-15-2022 Patient encounter procedure Donnell Cabrera MD Work Phone: Otolaryngology Comment on above: Tinnitus, left ear ( Primary Dx); Vertigo Start: 11-11-2022 End: 11-11-[address] Ruel Peoples Work Phone: [facility] Work Phone: Start: 11-11-2022 End: 11-11-[address] Ruel Peoples Work Phone: [facility] Start: 09-29-2022 End: 09-29-[address] Ruel Peoples Work Phone: [facility] Work Phone: Start: 09-29-2022 End: 09-29-[address] Ruel Peoples Work Phone: [facility] Start: 09-23-2022 Non-patient / Non-visit Dr. Omi Peoples Work Phone: [facility] Start: 09-20-2022 End: 09-20-[address] Ruel Peoples Work Phone: [facility] Work Phone: Start: 09-20-2022 End: 09-20-[address] Ruel Peoples Work Phone: [facility]-Laboratory, [facility] Start: 07-26-2022 Refill Kandice tirado APRN.CNP Work Phone: Neurology Comment on above: Refill Request Start: 07-12-2022 Telephone encounter Hailey Eden MD Work Phone: Pulmonary Medicine Comment on above: Orders Start: 06-21-2022 End: 06-21-[address] [facility] Work Phone: Start: 06-21-2022 End: 06-21-[address] [facility]-MRI - [facility] Start: 05-31-2022 End: 05-31-2022 Patient encounter procedure Hailey Eden MD Work Phone: Pulmonary Medicine Comment on above: Lung nodules (Primar y Dx); Severe persistent asthma without complication; COVID-19 long hauler; Sjogren's syndrome, with unspecified organ involvement (HCC) Start: 05-25-2022 End: 05-25-[address] [facility] Work Phone: Start: 05-25-2022 End: 05-25-[address] [facility] Start: 05-24-2022 End: 05-24-[address] [facility] Work Phone: Start: 05-24-2022 End: 05-24-[address] [facility]-Cat [facility] Start: 05-24-2022 Telephone encounter Darien Gudino MD Work Phone: Neurology Comment on above: Patient Update; Medi cation Question (Patient called concerning Neurontin.) Start: 05-06-2022 End: 05-06-[address] [facility] Work Phone: Start: 05-06-2022 End: 05-06-2022 Patient encounter procedure [facility] Start: 04-29-2022 Refill Kandicelebron Richey usen SUPERVISOR [employer] Work Phone: Neurology Comment on above: Refill Request Start: 04-22-2022 End: 04-22-2022 ambulatory Respiratory Therapist [facility] Work Phone: Pulmonary Medicine Comment on above: Spirometry Start: 04-22-2022 End: 04-22-2022 Patient encounter procedure [facility] Work [facility]: [facility] Comment on above: Severe persistent as thma without complication (Primary Dx); Lung nodules; SANTHOSH (obstructive sleep apnea); Dyspnea and respiratory abnormalities Start: 04-16-2022 Refill Kandice Dahlha usen SUPERVISOR [employer] Work Phone: Neurology Comment on above: Refill Request Start: 03-15-2022 Refill Darien mcclure MD Work Phone: Neurology Comment on above: Refill Request Start: 03-12-2022 Telephone encounter Hailey Eden MD Work Phone: Pulmonary Medicine Comment on above: Results (Chest CT) Start: 03-11-2022 Telephone encounter Analia Rivera (Historical) Work Phone: Pulmonary Medicine Comment on above: Patient Update Start: 03-10-2022 End: 03-10-2022 Subsequent hospital visit by physician [facility] (I-Stat) Work Phone: Cat Scan Comment on above: Lung nodules [R91.8] Start: 02-15-2022 End: 02-15-2022 Patient encounter procedure [facility] Start: 02-02-2022 End: 02-02-2022 Patient encounter procedure [facility] Start: 01-22-2022 End: 01-22-2022 Subsequent hospital visit by physician [facility] (I-Stat/1.5t) Work Phone: Radiology Comment on above: Transient cerebral i schemia, unspecified type [G45.9] Start: 01-21-2022 End: 01-21-2022 Patient encounter procedure [facility] Start: 01-07-2022 End: 01-07-2022 Patient encounter procedure Kandice Jung MIGEL Work Phone: Neurology Comment on above: Neuropathy (Primary Dx); RLS (restless legs syndrome); Nonintractable episodic headache, unspecified headache type; SANTHOSH (obstructive sleep apnea); Low back pain, unspecified back pain laterality, unspecified chronicity, unspecified whether sciatica present; Transient cerebral ischemia, unspecified type; Aphasia; Balance problems; Sciatica of right side Start: 12-30-2021 End: 12-30-2021 Patient encounter procedure [facility] Start: 12-28-2021 Telephone encounter Rodrigo andrews MD Work Phone: Pulmonary Medicine Comment on above: Appointment Start: 12-09-2021 End: 12-09-[address] [facility] Start: 12-08-2021 End: 12-08-2021 Patient encounter procedure [facility] Start: 11-06-2021 End: 11-06-2021 Patient encounter procedure Darien Gudino MD Work Phone: Neurology Comment on above: Neuropathy (Primary Dx); RLS (restless legs syndrome); Nonintractable episodic headache, unspecified headache type; SATNHOSH (obstructive sleep apnea); Low back pain, unspecified back pain laterality, unspecified chronicity, unspecified whether sciatica present; Sciatica of right side Start: 09-14-2021 End: 09-14-[address] [facility] Start: 08-20-2021 End: 08-20-2021 [facility] Start: 08-02-2017 End: 08-04-2017 Evaluation and management of inpatient SUBHA Janet BAKER Facility:B Start: 07-28-2017 End: 07-29-2017 Ambulatory SUBHA Gonzales CORY Facility:B Start: 07-21-2017 End: 07-22-2017 Ambulatory KINA BravoPatito MARGARETKRISTIN Facility:B Start: 06-01-2017 Ambulatory Sinan Jones Facility: Colon Procedures Date Procedure Procedure Detail Performing Clinician Start: 11-27-[address] Davion Peoples MD Work Phone: Start: 11-26-2024 Plain X-ray of shoulder Dr. Davion Peoples MD Work Phone: Start: 11-26-2024 Fluoroscopic guidance Josué Peoples MD Work Phone: Start: 11-26-2024 Plain X-ray of shoulder Dr. Davion Peoples MD Work Phone: Start: 11-26-2024 Reverse prosthetic t otal arthroplasty of right shoulder Dr. Davion Peoples MD Work Phone: Start: 11-17-2024 Methicillin resistan t Staphylococcus aureus screening test Dr. Davion Peoples MD Work Phone: Start: 11-08-2024 Evaluation of diagno stic study results Dr. Davion Peoples MD Work Phone: Start: 12-01-[address] Marc Peoples Work Phone: Start: 11-29-2023 CT of upper limb wit hout contrast Dr. Davion Peoples Work Phone: Start: 11-02-2023 Plain X-ray of shoulder Dr. Davion Peoples Work Phone: Start: 10-21-[address] e detection Dr. Davion Peoples Work Phone: Start: 10-18-[address] Ruel Peoples Work Phone: Start: 10-12-2023 Plain x-ray of elbow Dr Patito Peoples Work Phone: Start: 10-12-2023 Plain X-ray of shoulder Dr. Ruel Peoples Work Phone: Start: 10-12-2023 Radiologic examinati on of knee Dr. Ruel Peoples Work Phone: Start: 10-12-2023 Bacteria identified in Blood by Culture Dr. Ruel Peoples Work Phone: Start: 10-12-[address] Marc Peoples Work Phone: Start: 10-12-2023 CT cervical spine wi thout contrast Dr. Ruel Peoples Work Phone: Start: 10-12-2023 CT of head without contrast Dr. Ruel Peoples Work Phone: Start: 07-20-2023 Co diffusing capacity Avelina Rivera PA-C Work Phone: Start: 06-01-2023 Plain X-ray of toe Dr. Ruel Peoples Work Phone: Start: 05-31-2023 Mri spinal canal lum bar w/o contrast material Darien Gudino MD Work Phone: Start: 05-10-2023 CT angiography of he ad and neck Dr. Ruel Peoples Work Phone: Start: 04-11-[address] Perry Peoples Work Phone: Start: 02-25-2023 Radiologic exam ches t 2 views Analia Rivera PA-C Work Phone: Start: 01-25-2023 Plain chest X-ray Dr. Jason Peoples Work Phone: Start: 01-06-2023 Cardiovascular stres s test using pharmacologic stress agent Dr. Ruel Peoples Work Phone: Start: 12-29-2022 Dual energy X-ray absorptiometry Dr. Ruel Peoples Work Phone: Start: 12-29-2022 Screening mammography D r. Ruel Ranney Work Phone: Start: 11-11-2022 CT of upper limb wit hout contrast Dr. Ruel Peoples Work Phone: Start: 09-29-2022 Plain x-ray of wrist Dr Patito Peoples Work Phone: Start: 06-21-2022 MRI of joint of lowe r extremity Start: 05-25-2022 Plain x-ray of elbow Start: 05-24-2022 CT of face Start: 05-06-2022 Plain x-ray of elbow Start: 05-06-2022 Plain X-ray of shoulder Start: 03-10-2022 Ct thorax w/o contra st material Rodrigo Lamb MD Work Phone: Start: 02-15-2022 X-ray of rib Start: 02-02-2022 Plain X-ray of shoulder Start: 01-22-2022 Mri brain brain stem w/o contrast material Kandice Jung [employer]PER[employer] Work Phone: Start: 12-09-2021 Screening mammography Start: 09-14-2021 Plain x-ray of wrist Start: 08-20-2021 Respiratory Panel (PCR) Start: 08-22-2009 Lipid 1996 panel - S slim or Plasma [facility] Provider Start: 08-22-2009 Mammography Darien wellington Jr., MD Work Phone: Plan of Treatment Date Care Activity Detail Author Start: 10-12-2033 Urine microalbumin profile DTa P,Tdap,Td Vaccine (4 - Td or Tdap) [facility] Start: 02-02-2031 Urine microalbumin profile DTa P,Tdap,Td Vaccine (3 - Td or Tdap) [facility] Start: 06-15-2027 Diabetes Screening Diabetes Screenin g [facility] Start: 01-23-2026 BP Controlled (<130/80) BP Controlle d (<130/80) [facility] Start: 08-05-2025 End: 08-05-2025 Patient encounter procedure 08/05/2025 2:00 PM EST Office Visit Neurology [address] [place] [address] Darien Gudino Jr., MD [address] [place], [place] [phone] nerve pain in hand Neurology Comment on above: nerve pain in hand Start: 07-29-2025 End: 07-29-2025 Patient encounter procedure 07/29/2025 11:45 AM EST Office Visit Pulmonary Medicine [address] [place], [place] [id number] Hailey Eden MD [address] [place] [address] 6 month follow up asthma Pulmonary Medicine Comment on above: 6 month follow up as thma Start: 06-15-2025 BP Controlled (<130/80) BP Controlle d (<130/80) [facility] Start: 06-03-2025 End: 06-03-2025 Patient encounter procedure 06/03/2025 2:00 PM EDT Office Visit Neurology [address] [place], [place] [address] Darien Gudino Jr., MD [address] [place], [place] [phone] nerve pain in hand Neurology Comment on above: nerve pain in hand Start: 04-22-2025 Influenza vaccination Influenza Vacc ine (#1) [facility] Start: 04-10-2025 End: 04-10-2025 Patient encounter procedure 04/10/2025 8:30 AM EDT Office Visit Neurology [address] [place], [place] [phone] Sheela Mclain PA-C [address] [place], [place] [phone] Med Refill / nerve pain (Dr. Gudino patient) Neurology Comment on above: Med Refill / nerve p ain (Dr. Gudino patient) Start: 03-05-2025 End: 03-05-2025 Patient encounter procedure 03/05/2025 1:30 PM EDT Office Visit Neurology [address] [place] [address] Sheela Mclain PA-C [address] [place] [address] Med Refill / nerve pain (Dr. Gudino patient) Neurology Comment on above: Med Refill / nerve p ain (Dr. Gudino patient) Start: 01-28-2025 End: 01-28-2025 Patient encounter procedure 01/28/2025 11:40 AM EDT Appointment Cat Scan [address] [place] [address] Lung nodules [R91.8] CT CHEST WO IVCON Cat Scan Comment on above: Lung nodules [R91.8] CT CHEST WO IVCON Start: 01-23-2025 End: 01-23-2025 Patient encounter procedure 01/23/2025 3:00 PM EDT Office Visit Pulmonary Medicine [address] [place] [address] Analia Rivera PA-C [address] [place] [address] 6 month follow up asthma Pulmonary Medicine Comment on above: 6 month follow up as thma Start: 01-11-2025 End: 01-11-2025 [facility] 01/11/2025 12:30 PM EDT [facility] Neurology [address] [address] Kandice Jung, RAEGAN.[employer] [address] [address] Med Refill. Neurology Comment on above: Med Refill. Start: 12-27-2024 End: 12-27-2024 [facility] 12/27/2024 7:00 AM EDT [facility] Neurology [address] [address] Kandice Jung, SUPERVISOR [employer] [address] [address] Med Refill. Neurology Comment on above: Med Refill. Start: 11-28-2024 Patient discharge [facility] Start: 11-27-2024 [facility] Start: 11-27-2024 Application of intermittent pneumatic compression device [facility] Start: 11-26-[address] [facility] Start: 11-26-[address] [facility] Start: 11-26-2024 [facility] Start: 11-26-[address] [facility] Start: 11-26-2024 Following clinical p athway protocol [facility] Start: 11-26-2024 Anes arthroscopic to mary shoulder replacement ANESTH SHOULDER REPLACEMENT [facility] Start: 11-26-2024 Arthroplasty glenohu meral joint total shoulder RECONSTRUCT SHOULDER JOINT [facility] Start: 11-26-2024 Injection aa&/strd brachial plexus NJX AA&/STRD BRCH PLXS IMG [facility] Start: 11-26-2024 Admission procedure [facility] Start: 11-26-2024 Consultation [facility] Start: 11-26-[address] [facility] Start: 11-26-2024 Application of device [facility] Start: 11-26-2024 Assessment of risk o f venous thromboembolism [facility] Start: 11-26-[address] [facility] Start: 11-26-2024 Following clinical p athway protocol [facility] Start: 11-26-2024 Introduction of urin amanda catheter [facility] Start: 11-26-2024 Measuring intake and output [facility] Start: 11-26-[address] [facility] Start: 11-26-2024 Patient education [facility] Start: 11-26-[address] [facility] Start: 11-26-2024 Provision of activit y privileges [facility] Start: 11-26-2024 Referral to occupati onal therapist [facility] Start: 11-26-[address] [facility] Start: 11-26-2024 Wound care [facility] Start: 11-26-2024 [facility] Start: 11-26-2024 Consultation [facility] Start: 11-26-[address] [facility] Start: 09-26-2024 End: 09-26-2024 Patient encounter procedure 09/26/2024 2:30 PM EST Office Visit Pulmonary Medicine [address] [place] [address] Analia Rivera PA-C [address] [facility] [place] [address] 6 month follow up asthma Pulmonary Medicine Comment on above: 6 month follow up as [facility] Start: 09-19-2024 BP Controlled (<130/80) BP Controlle d (<130/80) [facility] Start: 08-28-2024 End: 08-28-2024 Patient encounter procedure 08/28/2024 10:30 AM EST Office Visit Pulmonary Medicine [address] [place] [address] Hailey Eden MD [address] [facility] [place] [address] 6 month follow up asthma Pulmonary Medicine Comment on above: 6 month follow up as [facility] Start: 08-22-2024 Advance Directive Discussion Advance Directive Discussion [facility] Start: 08-14-2024 Covid-19 Vaccine () Covid-19 Vaccine () [facility] Start: 07-20-2024 BP Controlled (<130/80) BP Controlle d (<130/80) [facility] Start: 07-03-2024 End: 07-03-2024 Patient encounter procedure 07/03/2024 1:45 PM EST Office Visit Neurology [address] [place] [address] Sheela Mclain PA-C [address] [place] [address] 60 min follow up per [facility], determine reasons for hospital stay and if need for further w/u Neurology Comment on above: 60 min follow up per [facility], determine reasons for hospital stay and if need for further w/u Start: 06-11-2024 End: 06-11-2024 Patient encounter procedure Neurology Comment on above: leg weakness follow up leg weakness follow up, ramiro 09/19/23 [facility], levetiracetam 750mg / Pregablin 150mg, no hsat scheduled per last visit Start: 05-15-2024 End: 05-15-2024 Patient encounter procedure 05/15/2024 12:45 PM EDT Office Visit Neurology [address] [place] [address] Sheela Mclain PA-C [address] [place] [phone] [facility] pt- headaches Neurology Comment on above: [facility] pt- headaches Start: 04-29-2024 BP Controlled (<130/80) BP Controlle d (<130/80) [facility] Start: 04-29-2024 DIABETES SCREEN DIABETES SCREEN [facility] Start: 04-29-2024 Diabetes Screening Diabetes Screenin g [facility] Start: 04-22-2024 Covid-19 Vaccine ( season) Covid-19 Vaccine ( season) [facility] Start: 04-22-2024 Covid-19 Vaccine ( season) Covid-19 Vaccine ( season) [facility] Start: 04-22-2024 Influenza vaccination [facility] Start: 02-10-2024 End: 02-10-2024 Patient encounter procedure 02/10/2024 10:00 AM EDT Office Visit Pulmonary Medicine [address] [place] [address] Hailey Eden MD [address] [place] [address] 6 month follow up Pulmonary Medicine Comment on above: 6 month follow up Start: 12-19-2023 End: 12-19-2023 Patient encounter procedure 12/19/2023 1:00 PM EDT Office Visit Neurology [address] [place] [address] Darien Gudino Jr., MD [address] [facility] [facility] [address] [place] [address] SANTHOSH Follow up x3 mths Neurology Comment on above: SANTHOSH Follow up x3 mth s Start: 10-21-[address] [facility] Start: 10-20-[address] [facility] Start: 10-19-[address] [facility] Start: 10-18-2023 Patient discharge [facility] Start: 10-16-2023 [facility] Start: 10-15-2023 [facility] Start: 10-13-[address] [facility] Start: 10-13-[address] [facility] Start: 10-13-2023 [facility] Start: 10-12-2023 [facility] Start: 10-12-2023 Following clinical p athway protocol [facility] Start: 10-12-2023 Assessment of risk o f venous thromboembolism [facility] Start: 10-12-[address] [facility] Start: 10-12-[address] [facility] Start: 10-12-2023 Incentive spirometry [facility] Start: 10-12-2023 Insertion of cathete r into peripheral vein [facility] Start: 10-12-2023 Measuring intake and output [facility] Start: 10-12-2023 Mouth care [facility] Start: 10-12-[address] [facility] Start: 10-12-2023 Providing care accor ding to standard [facility] Start: 10-12-2023 Provision of activit y privileges [facility] Start: 10-12-2023 Referral to occupati onal therapist [facility] Start: 10-12-2023 Referral to service [facility] Start: 10-12-2023 [facility] Start: 10-12-2023 Blood culture [facility] Start: 10-12-2023 Verification routine [facility] Start: 10-12-2023 Admission procedure [facility] Start: 10-12-2023 [facility] Start: 10-12-2023 Blood culture [facility] Start: 10-12-2023 Bacteria identified in Blood by Culture Blood Culture [facility] Start: 10-12-2023 Bacteria identified in Urine by Culture [facility] Start: 10-12-2023 Consultation [facility] Start: 10-12-[address] [facility] Start: 08-22-2023 Advance Directive Discussion Advance Directive Discussion [facility] Start: 08-22-2023 Behavioral Health Screening Behavioral Health Screening [facility] Start: 08-22-2023 Depression Assessment [facility] Start: 04-22-2023 Covid-19 Vaccine () Covid-19 Vaccine () [facility] Start: 04-22-2023 Influenza vaccination [facility] Start: 01-28-2023 Patient referral [facility] Work Phone: Start: 01-26-2023 Cardiac rehabilitati on - phase 1 [facility] Start: 01-07-2023 BP CONTROLLED (<130/80) BP CONTROLLE D (<130/80) [facility] Start: 11-06-2022 BP CONTROLLED (<130/80) BP CONTROLLE D (<130/80) [facility] Start: 08-22-2022 ADVANCE DIRECTIVE DISCUSSION ADVANCE DIRECTIVE DISCUSSION [facility] Start: 08-22-2022 DEPRESSION ASSESSMENT DEPRESSION ASS ESSMENT [facility] Start: 07-20-2022 COVID-19 VACCINE (6 - Pfizer risk series) COVID-19 VACCINE (6 - Pfizer risk series) [facility] Start: 05-24-2022 End: 05-22-2023 Ct thorax w/o contrast material [facility] Lung nodules Expected: 05/24/2022, Expires: 05/22/2023 [facility] Work Phone: Comment on above: Expected: 05/24/2022 , Expires: 05/22/2023 Start: 05-02-2022 COVID-19 VACCINE (5 - Booster for Pfizer series) COVID-19 VACCINE (5 - Booster for Pfizer series) [facility] Start: 04-22-2022 Influenza vaccination INFLUENZA (#1) [facility] Start: 02-25-2022 End: 01-29-2023 Ct thorax w/o contrast material CT CHEST WO IVCON Radiology Routine Lung nodules Expected: 02/25/2022, Expires: 01/29/2023 [facility] Work Phone: Comment on above: Expected: 02/25/2022 , Expires: 01/29/2023 Start: 02-25-2022 End: 01-29-2023 SPIROMETRY BASELINE ONLY SPIROMETRY BASELINE ONLY PFT Routine Severe persistent asthma without complication Expected: 02/25/2022, Expires: 01/29/2023 [facility] Work Phone: Comment on above: Expected: 02/25/2022 , Expires: 01/29/2023 Start: 02-24-2022 COVID-19 VACCINE (5 - Booster for Pfizer series) COVID-19 VACCINE (5 - Booster for Pfizer series) [facility] Start: 08-22-2021 ADVANCE DIRECTIVE DISCUSSION ADVANCE DIRECTIVE DISCUSSION [facility] Start: 08-22-2021 DEPRESSION ASSESSMENT DEPRESSION ASS ESSMENT [facility] Start: 07-18-2021 COVID-19 VACCINE (4 - Booster for Pfizer series) COVID-19 VACCINE (4 - Booster for Pfizer series) [facility] Start: 06-22-2017 Medicare Annual Well ness Visit Medicare Annual Wellness Visit [facility] Start: 2016 BONE DENSITY BONE DENSITY [facility] Start: 2016 Bone Density Screening Bone Density Screening [facility] Start: 2016 Screening for osteoporosis Bone Dens ity Screening [facility] Start: 08-22-2014 Lipid 1996 panel - S slim or Plasma Lipid Screening [facility] Start: 08-22-2014 Lipid panel Lipid Screening [facility] Start: 08-22-2014 LIPID SCREEN LIPID SCREEN [facility] Start: 2011 RSV Vaccine (1 - 1-d ose 60+ series) RSV Vaccine (1 - 1-dose 60+ series) [facility] Start: 08-22-2010 Mammography [facility] Start: 08-22-2010 Screening for malign ant neoplasm of breast Mammogram Screening [facility] Start: 2001 SHINGRIX VACCINE (1 of 2) VALENCIA GRIX VACCINE (1 of 2) [facility] Start: 1996 COLOGUARD (FIT-DNA) COLOGUARD (FIT-D NA) [facility] Start: 1996 Colonoscopy COLONOSCOPY [facility] Start: 1996 COLORECTAL CANCER SCREENING COLORECTAL CANCER SCREENING [facility] Start: [address] COLONOGRAPHY [facility] Start: 1996 FECAL OCCULT BLOOD FECAL OCCULT BLOO D [facility] Start: 1996 Screening for malign ant neoplasm of colon [facility] Start: 1996 SIGMOIDOSCOPY SIGMOIDOSCOPY [facility] Start: 1970 SHINGRIX VACCINE (1 of 2) VALENCIA GRIX VACCINE (1 of 2) [facility] Start: 1970 Urine microalbumin profile [facility] Start: 1969 ANNUAL PCP TEAM FITNESS COORDINATOR SANTOS DISEASE VISIT ANNUAL PCP TEAM CHRONIC DISEASE VISIT [facility] Start: 1969 BP CONTROLLED (<130/80) BP CONTROLLE D (<130/80) [facility] Start: 1969 [facility]: [facility] HEPATITIS C SCREENING HEPATITIS C [facility] Start: 1969 Hepatitis C screening Hepatitis C [facility] Start: 1963 Adult depression scr [facility] assessment DEPRESSION SCREENING [facility] Start: 1962 Screening for malign ant neoplasm of cervix Cervical Cancer Screening [facility] Alanine aminotransfe rase [Enzymatic activity/volume] in Serum or Plasma [facility] Alanine aminotransfe rase [Enzymatic activity/volume] in Serum or Plasma [facility] Albumin [Mass/volume ] in Serum or Plasma [facility] Albumin [Mass/volume ] in Serum or Plasma [facility] Alkaline phosphatase [Enzymatic activity/volume] in Serum or Plasma [facility] Alkaline phosphatase [Enzymatic activity/volume] in Serum or Plasma [facility] Anion gap measurement [facility] Anion gap measurement [facility] Aspartate aminotrans ferase [Enzymatic activity/volume] in Serum or Plasma [facility] Aspartate aminotrans ferase [Enzymatic activity/volume] in Serum or Plasma [facility] Bilirubin, total measurement [facility] Bilirubin, total measurement [facility] BUN/Creatinine ratio [facility] BUN/Creatinine ratio [facility] Calcium [Mass/volume ] in Serum or Plasma [facility] [facility] Calcium [Mass/volume ] in Serum or Plasma [facility] Carbon dioxide, tota l [Moles/volume] in Serum or Plasma [facility] Carbon dioxide, tota l [Moles/volume] in Serum or Plasma [facility] Chloride [Moles/volu me] in Serum or Plasma [facility] Chloride [Moles/volu me] in Serum or Plasma [facility] Creatinine [Moles/vo lume] in Serum or Plasma [facility] Creatinine [Moles/vo lume] in Serum or Plasma [facility] End: 02-22-2026 CT Chest WO contrast CT CHEST WO IVCON Radiology Routine Lung nodules 1 Occurrences starting 01/23/2025 until 02/22/2026 [facility] Work Phone: Comment on above: 1 Occurrences starti ng 01/23/2025 until 02/22/2026 CT Chest WO contrast CT CHEST WO IVCON Radiology Routine Lung nodules 02/05/2025 2:40 PM EDT [facility] Work Phone: Ct thorax w/o contra st material CT CHEST WO IVCON Radiology Routine Lung nodules 03/10/2022 1:13 PM EDT [facility] Work Phone: Ct thorax w/o contra st material CT CHEST WO IVCON Radiology Routine Lung nodules 07/01/2023 3:58 PM EST [facility] Work Phone: End: 04-22-2023 Echocardiography ECHO Cardiology Routine SANTHOSH (obstructive sleep apnea) Dyspnea and respiratory abnormalities 1 Occurrences starting 04/22/2022 until 04/22/2023 [facility] Work Phone: Comment on above: 1 Occurrences starti ng 04/22/2022 until 04/22/2023 End: 03-05-2026 EMG(NEURO/NI) EMG(NEURO/NI) EMG Routine Left hand pain Carpal tunnel syndrome of left wrist 1 Occurrences starting 03/05/2025 until 03/05/2026 [facility] Work Phone: Comment on above: 1 Occurrences starti ng 03/05/2025 until 03/05/2026 Erythrocyte mean corpuscular volume determination [facility] Glucose [Mass/volume ] in Serum or Plasma [facility] Glucose [Mass/volume ] in Serum or Plasma [facility] Hematocrit [Volume Fraction] of Blood [facility] Hemoglobin [Mass/vol ume] in Blood [facility] Leukocytes [#/volume ] in Blood [facility] Lipid 1996 panel - S slim or Plasma [facility] Magnesium [Mass/volu me] in Serum or Plasma [facility] Mean corpuscular hemoglobin concentration determination [facility] Mean corpuscular hemoglobin determination [facility] Measurement of renal function [facility] Measurement of renal function [facility] End: 02-06-2023 Mri brain brain stem w/o contrast material MRI [facility] Radiology Routine Transient cerebral ischemia, unspecified type Aphasia Balance problems 1 Occurrences starting 01/07/2022 until 02/06/2023 [facility] Work Phone: Comment on above: 1 Occurrences starti ng 01/07/2022 until 02/06/2023 Neutrophil count [facility] Neutrophil percent differential count [facility] NM Heart Views W str ess and W radionuclide IV [facility] Patient Education [facility] Work Phone: Patient referral [facility] Work Phone: Platelets [#/volume] in Blood [facility] Potassium [Moles/vol ume] in Serum or Plasma [facility] Potassium [Moles/vol ume] in Serum or Plasma [facility] End: 03-26-2024 Radiologic exam chest 2 views XR CHEST 2V FRONTAL/LAT Radiology Routine Dyspnea and respiratory abnormalities 1 Occurrences starting 02/25/2023 until 03/26/2024 [facility] Work Phone: Comment on above: 1 Occurrences starti ng 02/25/2023 until 03/26/2024 Radiologic exam ches t 2 views XR CHEST 2V FRONTAL/LAT Radiology Routine Dyspnea and respiratory abnormalities 02/25/2023 10:59 AM EDT [facility] Work Phone: Red blood cell count [facility] Red cell distributio n width determination [facility] Sodium [Moles/volume ] in Serum or Plasma [facility] Sodium [Moles/volume ] in Serum or Plasma [facility] Total protein measurement [facility] Total protein measurement [facility] TOXICOLOGY SCREEN, R OUTINE URINE TOXICOLOGY SCREEN, ROUTINE URINE Lab Routine Encounter for long-term (current) use of medications Ordered: 06/15/2024 [facility] Work Phone: Comment on above: Ordered: 06/15/2024 Urea nitrogen [Mass/volume] in Serum or Plasma [facility] Urea nitrogen [Mass/volume] in Serum or Plasma [facility] Immunizations Immunization Date Immunization Notes Care Provider Hector kruger 05-16-2024 influenza virus vaccine, unspecified formulation Sheela Mclain PA-C Work Phone: [facility] 10-12-2023 tetanus toxoid, redu ricky diphtheria toxoid, and acellular pertussis vaccine, adsorbed Dr. Ruel Peoples Work Phone: [facility] 04-12-2023 pneumococcal (PCV20) vaccine, 20 valent (PREVNAR 20) Pulm Ws Work Phone: [facility] Work Phone: 05-25-2022 influenza, injectabl e, quadrivalent, preservative free Hailey Eden MD Work Phone: [facility] Work Phone: 05-25-2022 influenza virus vaccine, unspecified formulation [facility] Provider [facility] 12-30-2021 COVID-19 original vaccine, age 12+ yr, monovalent ([employer] [facility]) Hailey Eden MD Work Phone: [facility] 08-10-2021 hepatitis A vaccine, pediatric/adolescent dosage, 2 dose schedule Darien Gudino Jr., MD Work Phone: [facility] 08-10-2021 hepatitis B vaccine, adult dosage Darien Gudino Jr., MD Work Phone: [facility] 05-11-2021 influenza, injectabl e, quadrivalent, contains preservative Respiratory Wstr Work Phone: [facility] Work Phone: 04-17-2021 COVID-19 original vaccine, age 12+ yr, monovalent ([employer] - PURPLE TOP) Hailey Eden MD Work Phone: [facility] 11-20-2020 COVID-19 vaccine, ag e 12+ yr (P[employer] - PURPLE TOP) Darien Gudino Jr., MD Work Phone: [facility] 10-30-2020 COVID-19 vaccine, ag e 12+ yr (PFI[employer]ER[employer] - PURPLE TOP) Darien Gudino Jr., MD Work Phone: [facility] 05-06-2020 pneumococcal polysaccharide vaccine, 23 valent Darien Gudino Jr., MD Work Phone: [facility] Work Phone: 04-29-2020 influenza, high-dose , quadrivalent vaccine (FLUZONE HIGH DOSE QUADRIVALENT) Darien Gudino Jr., MD Work Phone: [facility] Work Phone: 05-05-2019 influenza, high dose seasonal, preservative-free Darien Gudino Jr., MD Work Phone: [facility] 04-20-2019 influenza, high dose seasonal, preservative-free Darien Gudino Jr., MD Work Phone: [facility] Work Phone: 06-26-2018 pneumococcal conjuga te vaccine, 13 valent Darien Gudino Jr., MD Work Phone: [facility] Work Phone: 06-20-2018 pneumococcal polysaccharide vaccine, 23 valent Darien Gudino Jr., MD Work Phone: [facility] Work Phone: 04-14-2018 influenza, high dose seasonal, preservative-free Darien Gudino Jr., MD Work Phone: [facility] 04-10-2018 influenza, seasonal, injectable Darien Gudino Jr., MD Work Phone: [facility] Work Phone: 05-31-2016 pneumococcal polysaccharide vaccine, 23 valent Darien Gudino Jr., MD Work Phone: [facility] Work Phone: 04-02-2016 influenza, injectabl e, quadrivalent, contains preservative Darien Gudino Jr., MD Work Phone: [facility] 04-02-2016 influenza, seasonal, injectable Darien Gudino Jr., MD Work Phone: [facility] Work Phone: 07-17-2012 pneumococcal polysaccharide vaccine, 23 valent Darien Gudino Jr., MD Work Phone: [facility] Work Phone: Payers Date Payer Category Payer Self-pay [id number] 2022 [facility] [id number] 2019 Private Health Insurance [facility] [employer] PPO [id number] 2019-Present [phone] [address] [address] [place] [address] PPO [id number] 2019 Private Health Insurance [facility] [employer] PPO [id number] 2019-Present [phone] [address] [address] [place] [address] PPO [id number] 2017 Medicare [id number] 2016 Medicare [id number] 2016 Medicare [id number] 2011 Unknown [id number] 2011 Miscellaneous or Other HOSPITAL/ MEDICAL GENERIC [id number] 2011 Unknown [id number] 2011 Unknown [id number] Unknown [id number] Unknown [id number] Unknown [id number] .462 Unknown [id number] .462 Unknown [id number] .462 Unknown [id number] [id number] .462 Unknown [id number] .462 Unknown [id number] 2.16.840.1.594524.3.579.2 .462 Unknown [id number] [id number] .462 Unknown [id number] .462 Unknown [id number] [id number] .462 Unknown [id number] 2.16.840.1.222210.3.579.2 .462 Unknown [id number] [id number] .462 Unknown [id number] .462 Unknown [id number] [id number] .462 Unknown [id number] [id number] .462 Unknown [id number] [id number] .462 Unknown [id number] [id number] .462 Unknown [id number] .462 Unknown [id number] .462 Social History Date Type Detail Facility Start: 12-23-2010 End: 10-23-2024 Tobacco smoking status NHIS Ex-smoker [facility] Start: 08-22-1971 End: 08-22-1981 History of tobacco use Current smoker [facility] Start: 08-22-1971 End: 08-22-1981 History of tobacco use Cigarette Smoker [facility] Start: 12-23-2010 End: 09-18-2022 Cigarettes smoked current (pack per day) - Reported 1 [facility] Start: 12-23-2010 End: 10-23-2024 Tobacco use and exposure Smokeless tobacco non-user [facility] Start: 11-06-2021 End: 03-05-2025 Alcohol intake Current drinker of alcohol (finding) [facility] Start: 12-21-2011 History SDOH Alcohol Comment very occasional [facility] Start: 02-12-2019 End: 04-22-2022 Tobacco Comment No smoking in childhood home. Quit cold turkey. No current household ETS smoking, 02/12/19. [facility] Start: 1950 Sex Assigned At Not on file [facility] Start: 10-27-2021 End: 05-31-2022 Exposure to SARS-CoV-2 (event) Not sure [facility] Start: 04-05-2017 End: 11-02-2023 Tobacco smoking status WIIS Unknown if ever smoked [facility] Start: 1950 Sex Assigned At Female W [facility] Start: 04-05-2022 End: 04-15-2022 Exposure to SARS-CoV-2 (event) Yes [facility] Start: 09-18-2022 End: 02-25-2023 Tobacco use panel [facility] Start: 03-12-2015 National Score (1-10 0), lower number is lower risk 70 [facility] Start: 10-31-2024 Tobacco smoking stat us NHIS Never smoked tobacco (finding) [facility] Start: 11-28-2024 Sex Female (finding) [facility] Medical Equipment Procedure Code Equipment Code Equipment Origin al Text Equipment Identifier Dates Drug-eluting cor onary artery stent, feb-uqavlkaogsbqt-czjy simon-coated ()[id number] FDA Start: 01-26-2023 FIBERTAPE FDA Start: 11-26-2024 FIBERTAPE FDA Start: 11-26-2024 screw FDA Start: 11-26-2024 Polyethylene rev erse shoulder prosthesis cup ()[id number] FDA Start: 11-26-2024 Reverse shoulder prosthesis head ()[id number] FDA Start: 11-26-2024 Orthopaedic bone screw, non-bioabsorbable, sterile ()[id number] FDA Start: 11-26-2024 Reverse shoulder prosthesis base plate ()[id number] FDA Start: 11-26-2024 Coated shoulder humeral stem prosthesis ()[id number] FDA Start: 11-26-2024 FIBERTAPE FDA Start: 11-26-2024 FIBERTAPE FDA Start: 11-26-2024 screw FDA Start: 11-26-2024 Goals Date Patient Goal Desired Activity /State Functional Status Date Assessment Result Facility 11-28-2024 Functional status Ambulates [facility] Work Phone: 10-18-2023 Functional status Activity Abili ty With Assist of 2 [facility] Work Phone: 10-18-2023 Functional status Patient Activi ty Ambulates [facility] Work Phone: 10-18-2023 Functional status Tolerates Activity Poor [facility] Work Phone: 01-17-2015 Are you deaf, or do you have serious difficulty hearing No 01/17/2015 8:49 AM Suzie Carbajal RPFT [facility] 01-17-2015 Are you blind, or do you have serious difficulty seeing, even when wearing glasses No 01/17/2015 8:49 AM Suzie Carbajal RPFT [facility] 01-17-2015 Do you have serious difficulty walking or climbing stairs No 01/17/2015 8:49 AM Suzie Carbajal RPFT No [facility] 01-17-2015 Do you have difficul ty dressing or bathing No 01/17/2015 8:49 AM Suzie Carbajal RPFT No [facility] 01-17-2015 Because of a physica l, mental, or emotional condition, do you have difficulty doing errands alone such as visiting a physician's office or shopping No 01/17/2015 8:49 AM Suzie Carbajal RPFT No [facility] Mental Status Date Assessment Result Facility 11-28-2024 Cognitive function Voice/Name [facility] Work Phone: 10-18-2023 Cognitive function Voice/Name [facility] Work Phone: 05-10-2023 Cognitive function Voice/Name [facility] Work Phone: 01-17-2015 Because of a physica l, mental, or emotional condition, do you have serious difficulty concentrating, remembering, or making decisions No 01/17/2015 8:49 AM EDT Suzie Ernst RPFT No [facility] Clinical Notes 11-06-2021 to 03-25-2025 Note Date & Type Note Facility 03-25-2025 Progress note [facility] 03-25-2025 Progress note Note Date/Time March 25, 2025 4:29pm [facility] [address], [address] [place] [address] OFFICE VISIT Date of Service: 03/25/25 MR#: [id number] Acct: [id number] Name: RAJWINDER WYLIE Rep #: [id number] : 1950 Provider: ROOSEVELT Low Age/Sex: 74/F Location: [facility] [place] [place] Status: Signed Intake Vital Signs 11/26/24 14:42 03/25/25 16:02 Height 5 ft 4 in 5 ft 4 in Weight: 208 lb BMI 35.6 BP 118/70 Blood Pressure Location Lt brachial Position Sitting Respiration 16 Pulse 63 Pulse Source Monitor Temp 98.0 F Temp Source Oral Pulse Oximetry (%) 99 Oxygen Delivery Method room air Intake Visit Reasons: CONCERN FOR UTI Chief Complaint: uti sx Accompanied by: Self Is patient in pain?: No Allergies lactose Allergy (Severe, Verified 03/25/25 15:55) Vomiting Sulfa (Sulfonamide Antibiotics) Allergy (Verified 03/25/25 15:55) Hives tree nut Allergy (Verified 03/25/25 15:55) Anaphylaxis Rabbit Adverse Reaction (Severe, Verified 03/25/25 15:55) NEEDS FOLLOW-UP sulfamethoxazole (From Bactrim) Adverse Reaction (Severe, Verified 03/25/25 15:55) Skin rashes & blisters trimethoprim (From Bactrim) Adverse Reaction (Severe, Verified 03/25/25 15:55) Skin rashes & blisters codeine Adverse Reaction (Verified 03/25/25 15:55) Other Environmental Allergies: Uncoded Adverse Reaction (Verified 03/25/25 15:55) NEEDS FOLLOW-UP erythromycin base Adverse Reaction (Verified 03/25/25 15:55) Upset Stomach milk (dairy) Adverse Reaction (Verified 03/25/25 15:55) Upset Stomach morphine Adverse Reaction (Verified 03/25/25 15:55) Nausea Medications ?Medication ?Instructions ?Recorded ?Confirmed ?Type fluticasone 500 mcg-salmeterol 50 1 puff inhalation BI D shortness of 01/23/15 03/25/25 History mcg/dose blistr powdr for breath inhalation (Advair Diskus) albuterol sulfate 90 mcg/actuation 1 - 2 puff inhalati on Q4H PRN 04/15/15 03/25/25 History aerosol inhaler (ProAir HFA) Asthma montelukast 10 mg tablet 10 mg PO QHS allergies 04/1503/25/25 History atorvastatin 20 mg tablet 20 mg PO QHS cholesterol 10/1403/25/25 History citalopram 40 mg tablet 30 mg PO QHS sleep 09/23/22 03/25/25 History empagliflozin 10 mg tablet 10 mg PO DAILY diabetes 10/1403/25/25 History (Jardiance) hydrochlorothiazide 12.5 mg tablet 12.5 mg PO DAILY bl ood pressure 09/23/22 03/25/25 History leflunomide 20 mg tablet 20 mg PO DAILY inflammation 09/23/22 03/25/25 History levetiracetam 750 mg 750 mg PO QHS seizures 09/2303/25/25 History tablet,extended release 24 hr losartan 100 mg tablet 100 mg PO QHS blood pressure 09/23/22 03/25/25 History metformin 500 mg tablet 500 mg PO DAILY diabetes 10/1403/25/25 History ondansetron HCl 4 mg tablet 4 mg PO Q8H PRN Nausea 10/1403/25/25 History potassium chloride 20 mEq 20 meq PO DAILY potassium 03/25/25 History tablet,extended release quetiapine 100 mg tablet 200 mg PO QHS mood disorder 09/23/22 03/25/25 History tiotropium bromide 2.5 2 puff inhalation DAILY shor tness 09/23/22 03/25/25 History mcg/actuation mist for inhalation of breath (Spiriva Respimat) meclizine 25 mg tablet 25 mg PO BID dizziness 11/2603/25/25 History venlafaxine 150 mg 225 mg PO DAILY mood 3 03/25/25 History capsule,extended release 24 hr aspirin 81 mg tablet,delayed 81 mg PO DAILY heart 12/2003/25/25 History release (Adult Low Dose Aspirin) Held on 11/28/24. Instructions: Resume on 12/13/24. guaifenesin 600 mg tablet, 600 mg PO BID PRN congestio n 04/29/23 03/25/25 Histor y extended release 12 hr (Mucinex) prednisone 20 mg tablet 5 mg PO DAILY PRN pain 04/2903/25/25 History fluticasone propionate 50 1 spray intranasal DAILY all ergy 10/12/23 03/25/25 H istory mcg/actuation nasal symptoms spray,suspension alprazolam 0.5 mg tablet 0.5 mg PO DAILY PRN Anxiety #10 10/18/23 03/25/25 Rx tabs alprazolam 1 mg tablet 1 mg PO QHS #20 tabs 2 4 03/25/25 Rx pregabalin 75 mg capsule 75 mg PO BID 01/17/24 History metoprolol tartrate 25 mg tablet 25 mg PO BID #180 tab s 05/30/24 03/25/25 Rx furosemide 40 mg tablet 20 mg (1/2 x 40 mg) PO DAILY PRN 07/16/24 03/25/25 Rx edema #30 tabs tirzepatide 5 mg/0.5 mL 5 mg subcut QWEEK 11/22/24 0 03/25/25 History subcutaneous pen injector (Mounjaro) acetaminophen 500 mg tablet 1,000 mg (2 x 500 mg) PO Q 8H #180 11/28/24 03/25/25 Rx tabs aspirin 81 mg tablet,delayed 81 mg PO BIDCM 2 weeks #2 8 tabs 11/28/24 03/25/25 Rx release doxycycline monohydrate 100 mg 100 mg PO BID 7 days #1 4 caps 11/28/24 03/25/25 Rx capsule oxycodone 5 mg tablet 5 - 10 mg (1 - 2 x 5 mg) PO Q4H 11/28/24 03/25/25 Rx PRN PRN Pain Score 4-10 7 days #30 tabs sennosides 8.6 mg-docusate sodium 2 tab PO BID #14 tab s 11/28/24 03/25/25 Rx 50 mg tablet (Stimulant Laxative Plus) amoxicillin 875 mg-potassium 1 tab PO BID #14 tabs 12/1403/25/25 Rx clavulanate 125 mg tablet Have you fallen in the past year?: No Nurse's Note: pt presents for sx of uti, sx include chills, low appetite , fever. occurring 1 week, hx of a symptomaic uti states was in hospital one year ago with septic infection has concerns about uti tx- none PFSH Medical History (Updated 03/25/25 @ 15:55 by Laisha Willis MA) Shingles Discoloration of skin Kidney stones Injury of back Injury of head and neck Shortness of breath on exertion Syncope Fall Fracture of proximal end of right humerus Cataract (lens) fragments in eye following cataract surgery, bilateral MRSA infection Post-menopausal Depression Anxiety History of steroid therapy Diabetes Walker as ambulation aid Ambulates with cane Osteoarthritis Arthritis Easy bruising High cholesterol Restless legs Seizures Blackout Dietary restriction Non-smoker CPAP (continuous positive airway pressure) dependence History of edema History of echocardiogram History of stress test Cardiology follow-up encounter Abnormal stress test Sjogren's disease Sinusitis Sinus arrhythmia Rheumatoid arthritis Obesity Atherosclerotic heart disease of [place] coronary artery without angina pectoris First degree atrioventricular block 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 Nicotine dependence in remission Post traumatic stress disorder Gout Lyme disease Sleep apnea Hypertension Asthma Surgical History (Updated 12/06/24 @ 00:01 by Taco Turner) Status post reverse total arthroplasty of right shoulder Hx of toe surgery History of amputation of toe History of coronary artery stent placement History of cardiac catheterization History of knee replacement History of shoulder replacement Stented coronary artery (01/26/23) History of tonsillectomy H/O shoulder surgery History of arthroscopic knee surgery Family History Mother Diabetes Hypertension Heart disease Father Diabetes Hypertension Heart disease Cancer Brother Heart disease Hypertension Atrial fibrillation Obesity Grandmother AAA (abdominal aortic aneurysm) Grandfather Heart disease Grandmother Cancer Social History Smoking Status: Never smoker alcohol intake: former substance use type: does not use HPI HPI Chief Complaint: uti sx Details: RAJWINDER WYLIE, is a 74 F who presents to the office today for initial evaluation at the [facility] for approximately 10-14 day history of chills, low appetite and possible fevers w/ new onset urinary incontinence over last 24-36 hours. No complaints of sweats, lightheadedness/dizziness, nausea/vomiting, or chest pain/shortness of breath/dyspnea on exertion/ mid-back pain. No changes incolor/ character of urine or stool. No bruo-riw-gjhjxnn products taken to assist. PMH significant for history of ago. No other associated symptoms and no alleviating/aggravating factors. ROS Const Constitutional: No other (As above) Exam Const General: cooperative, healthy appearing and no acute distress Orientation: alert, awake and oriented x3 Chest Chest palpation & inspection: normal inspection of the chest Resp Effort & Inspection: normal respiratory effort and able to speak in complete sentences Auscultation: Bilateral: Clear to Auscultation Cardio Palpation: normal PMI Rate: regular rate Rhythm: regular rhythm Heart Sounds: S1 normal, S2 normal, no gallops, no murmurs and no rubs Pulses: radial pulses present GI Inspection: normal to inspection Palpation: soft and tender suprapubic (Patient describes upon self-palpation) General: No CVA tenderness Skin General: no rashes or lesions noted Neuro General: patient alert, patient awake and patient oriented x3 Cognition: normal cognition Speech: speech normal Psych Appearance: grossly normal Mental Status: mental status grossly normal Mood: congruent mood Affect: normal affect Speech and Movement: speech and movement normal Attitude: cooperative Diagnoses Urinary tract infection with hematuria N39.0 Assessment and Plan Assessment and Plan (1) Urinary tract infection with hematuria: Status: Acute Plan: See POC results; urine sent to lab for C/S. Augmentin as prescribed today. Supportive measures as instructed today. Follow-up with PCP in 3 to 5 days should symptoms not improve, ED sooner shouldsymptoms only worsen or any other concerns develop. Patient states acknowledging understanding all the above. Results POC Urinalysis Dip (Clinic) Office Urine Color YELLOW Last Edit by Laisha Willis MA on 03/25/25 16:18 Office Urine Clarity Clear Last Edit by Laisha Willis MA on 03/25/25 16:18 Office Urine Glucose Negative Last Edit by Laisha Willis MA on 03/25/25 16 :18 Office Urine Ketones Trace (5) Last Edit by Laisha Willis MA on 03/25/25 16:18 Off Ur Spec [place] 1.010 Last Edit by Laisha Willis MA on 03/25/25 16:18 Office Urine pH 6.0 Last Edit by Laisha Willis MA on 03/25/25 16:18 Office Urine Bilirubin Negative Last Edit by Laisha Willis MA on 03/25/25 16:18 Office Urine Urobilinogen 0.2 mg/dL Last Edit by Laisha Willis MA on 03/25 16:18 Office Urine Blood Moderate Last Edit by Laisha Willis MA on 03/25/25 16:1 8 Office Urine Blood Hemolyzed Moderate Last Edit by Laisha Willis MA on 03/25/25 16:18 Office Urine Protein Negative Last Edit by Laisha Willis MA on 03/25/25 16 :18 Office Urine Nitrate Negative Last Edit by Laisha Willis MA on 03/25/25 16 :18 Off Ur Leukocytes Positive Last Edit by Laisha Willis MA on 03/25/25 16:18 Coding Level of Care Code Off vis,new,level 3 Assessment and Plan Assessment and Plan Orders: Orders POC Urinalysis Dip (Clinic) Today R39.9 - Unspecified symptoms and signs involving the genitourinary system Culture, Urine Today R39.9 - Unspecified symptoms and signs involving the genitourinary system Medications: New amoxicillin-pot clavulanate 875-125 mg 1 TAB PO BID 14 tabs 0RF Clinical Quality Measures Falls Risk Screening/Assistive Devices Have you fallen in the past year?: No 03/25/25 1629 <Electronically signed by Subha Shabazz s ROOSEVELT ALBERT> Date _ Subha Schultz Signature: Date (if applicable) CC: ~ [employer] Work Phone: [phone]) 730-413507-15-2025 Instructions* Patient Instructions* Sheela Mclain PA-C - 03/05/2025 2:03 PM EDT Refills sent for lyrica 75mg twice daily and Keppra 750mg daily Follow up in [address] [facility]udino [facility] NoteHNO ID: [id number] Author: SHEELA MCLAIN PA-C Service: ? Author Type: Physician Open Source Developer Type: Progress Notes Filed: 03/05/2025 14:41 Note Text: [facility] Name: Rajwinder Wylie Age: [age] year old Gender: female Primary Care Provider: Davion Peoples MD Assessment/Plan: 03/05/2025 - General Neurology, Sheela Mclain PA-C ASSESSMENT ASSESSMENT/PLAN: 1. Neuropathy - ICD9: 355.9, ICD10: G62.9 (primary diagnosis) Stable neuropathy, no change. Notes improvement in falls of the last falls but a week ago where she tripped. Likely secondary to neuropathy. Symptoms are well-controlled on Lyrica 75 mg twice daily and requesting refill today. This was given for 6 months. Recent labs showing creatinine of 1.3 and GFR of 42. No new symptoms that would warrant additional workup at this time. 2. Nonintractable episodic headache, unspecified headache type - ICD9: 784.0, ICD10: R51.9 Stable on Keppra 750 mg, refills given. 3. RLS (restless legs syndrome) - ICD9: 333.94, ICD10: G25.81 Well-managed 4. SANTHOSH (obstructive sleep apnea) - ICD9: 327.23, ICD10: G47.[address] Gudino 5. Recurrent falls - ICD9: V15.88, ICD10: R29.6 Notes improvement, no major injuries. Last fall was about a week ago as she tripped, likely secondary to neuropathy. 6. Restless legs syndrome - ICD9: 333.94, ICD10: G25.81 7. Degeneration of intervertebral disc of lumbosacral region, unspecified whether pain present - ICD9: 722.52, ICD10: M51.379 Stable. 8. Left hand pain - ICD9: 729.5, ICD10: M79.642 9. Carpal tunnel syndrome of left wrist - ICD9: 354.0, ICD10: G56.02 Reporting some left hand pain, history of carpal tunnel surgery in her 20s. Reporting discomfort in the first 3 digits concerning for carpal tunnel syndrome. Discussed EMG study and patient is amenable to this. Will likely follow with orthopedics afterwards. Patient agreeable to treatment plan of care at this time, all questions were answered. Patient to follow-up in 6 months. Sheela Mclain PA-C Encounter Diagnosis ICD-10-CM 1. Neuropathy G62.9 pregabalin (LYRICA) 75 mg capsule levETIRAcetam ER (KEPPRA XR) 750 mg 24 hr tablet 2. Nonintractable episodic headache, unspecified headache type R51.9 pregabalin (LYRICA) 75 mg capsule levETIRAcetam ER (KEPPRA XR) 750 mg 24 hr tablet 3. RLS (restless legs syndrome) G25.81 4. SANTHOSH (obstructive sleep apnea) G47.33 5. Recurrent falls R29.6 6. Restless legs syndrome G25.81 7. Degeneration of intervertebral disc of lumbosacral region, unspecified whether pain present M51.379 8. Left hand pain M79.642 EMG(NEURO/NI) 9. Carpal tunnel syndrome of left wrist G56.02 EMG(NEURO/NI) Return in about 6 months (around 09/05/2025). Chart, labs,and relevant images reviewed. Chief Complaint:Patient presents with: Follow Up: Med refills. Other problems Chart Review: 06/15/[address] Gudino ASSESSMENT/PLAN: 1. Obstructive sleep apnea (adult) (pediatric) - ICD9: 327.23, ICD10: G47.33 (primary diagnosis) Inconsistent histories as to why not using and how long not using. I do not have a download available for review that shows use in the past 90 days. Encouraged patient restart and use PAP nightly so long as device is still functioning. If not she is to contact us. Encouraged weight loss. Reminded pt to clean and replace equipment regularly. 2. Encounter for long-term (current) use of medications - ICD9: V58.69, ICD10: Z79.899 Due to long time use of Lyrica. Note we are not Rx but pt also on Xanax through outside provider. Appears for anxiety. Note that pt insomnia based on sleep-wake time preference (circadian). Pt provides inconsistent history as to how much Xanax taking vs that Rx'd - see above. 3. Neuropathy - ICD9: 355.9, ICD10: G62.9 4. Restless legs syndrome - ICD9: 333.94, ICD10: G25.81 Appears stable so long as on Lyrica and Keppra and taking as Rx'd. Note that Lyrica has not been just recenlty refilled due to lack of follow ups. Now back, on and restarting, but needs to be renal dosed at 75mg BID. SE and ADRs again reviewed with pt. 5. Recurrent falls - ICD9: V15.88, ICD10: R29.6 6. Balance problems - ICD9: 781.99, ICD10: R26.89 Etiology unclear. Again, inconsistent histories above. Need to get hospital records for review. Med records suggest no LOC. Was on AEDs at time of event. Will consider further workup once can review all med records as do not want to repeat testing. Consider EEG. Consider cardiac workup. However these may have been completed. Also question if pt taking meds different than Rx'd based on Xanax history above. 7. Nonintractable episodic headache, unspecified headache type - ICD9: 784.0, ICD10: R51.9 Stable at present. On both Lyrica and Keppra as preventative. See dosing above. Again, pt poor historian, and presents with multiple complaints associated with recent hospitalization. Will attempt to o (more content not included)... [facility]07-15-2025 History of Present illness Narrative* Sheela Mclain PA-C - 03/05/2025 1:29 PM EDT Images from the original note were not included. [facility] Name: Rajwinder Wylie Age: [age] year old Gender: female Primary Care Provider: Davion Peoples MD Assessment/Plan: 03/05/2025 - General Neurology, Sheela Mclain PA-C ASSESSMENT ASSESSMENT/PLAN: 1. Neuropathy - ICD9: 355.9, ICD10: G62.9 (primary diagnosis) Stable neuropathy, no change. Notes improvement in falls of the last falls but a week ago where shetripped. Likely secondary to neuropathy. Symptoms are well- controlled on Lyrica 75 mg twice daily and requesting refill today. This was given for 6 months. Recent labs showing creatinine of 1.3 and GFR of 42. No new symptoms that would warrant additional workup at this time. 2. Nonintractable episodic headache, unspecified headache type - ICD9: 784.0, ICD10: R51.9 Stable on Keppra 750 mg, refills given. 3. RLS (restless legs syndrome) - ICD9: 333.94, ICD10: G25.81 Well-managed 4. SANTHOSH (obstructive sleep apnea) - ICD9: 327.23, ICD10: G47.[address] Gudino 5. Recurrent falls - ICD9: V15.88, ICD10: R29.6 Notes improvement, no major injuries. Last fall was about a week ago as she tripped, likely secondary to neuropathy. 6. Restless legs syndrome - ICD9: 333.94, ICD10: G25.81 7. Degeneration of intervertebral disc of lumbosacral region, unspecified whether pain present - ICD9: 722.52, ICD10: M51.379 Stable. 8. Left hand pain - ICD9: 729.5, ICD10: M79.642 9. Carpal tunnel syndrome of left wrist - ICD9: 354.0, ICD10: G56.02 Reporting some left hand pain, history of carpal tunnel surgery in her 20s. Reporting discomfort inthe first 3 digits concerning for carpal tunnel syndrome. Discussed EMG study and patient is amenable to this. Will likely follow with orthopedics afterwards. Patient agreeable to treatment plan of care at this time, all questions were answered. Patient to follow-up in 6 months. Sheela Mclain PA-C Encounter Diagnosis ICD-10-CM 1. Neuropathy G62.9 pregabalin (LYRICA) 75 mg capsule levETIRAcetam ER (KEPPRA XR) 750 mg 24 hr tablet 2. Nonintractable episodic headache, unspecified headache type R51.9 pregabalin (LYRICA) 75 mg capsule levETIRAcetam ER (KEPPRA XR) 750 mg 24 hr tablet 3. RLS (restless legs syndrome) G25.81 4. SANTHOSH (obstructive sleep apnea) G47.33 5. Recurrent falls R29.6 6. Restless legs syndrome G25.81 7. Degeneration of intervertebral disc of lumbosacral region, unspecified whether pain present M51.379 8. Left hand pain M79.642 EMG(NEURO/NI) 9. Carpal tunnel syndrome of left wrist G56.02 EMG(NEURO/NI) Return in about 6 months (around 09/05/2025). Chart, labs,and relevant images reviewed. Chief Complaint:Patient presents with: Follow Up: Med refills. Other problems Chart Review: 06/15/[address] Gudino ASSESSMENT/PLAN: 1. Obstructive sleep apnea (adult) (pediatric) - ICD9: 327.23, ICD10: G47.33 (primary diagnosis) Inconsistent histories as to why not using and how long not using. I do not have a download available for review that shows use in the past 90 days. Encouraged patient restart and use PAP nightly so long as device is still functioning. If not she is to contact us. Encouraged weight loss. Reminded pt to clean and replace equipment regularly. 2. Encounter for long-term (current) use of medications - ICD9: V58.69, ICD10: Z79.899 Due to long time use of Lyrica. Note we are not Rx but pt also on Xanax through outside provider. Appears for anxiety. Note that pt insomnia based on sleep-wake time preference (circadian). Pt provides inconsistent history as to how much Xanax taking vs that Rx'd - see above. 3. Neuropathy - ICD9: 355.9, ICD10: G62.9 4. Restless legs syndrome - ICD9: 333.94, ICD10: G25.81 Appears stable so long as on Lyrica and Keppra and taking as Rx'd. Note that Lyrica has not been just recenlty refilled due to lack of follow ups. Now back, on and restarting, but needs to be renal dosed at 75mg BID. SE and ADRs again reviewed with pt. 5. Recurrent falls - ICD9: V15.88, ICD10: R29.6 6. Balance problems - ICD9: 781.99, ICD10: R26.89 Etiology unclear. Again, inconsistent histories above. Need to get hospital records for review. Medrecords suggest no LOC. Was on AEDs at time of event. Will consider further workup once can review all med records as do not want to repeat testing. Consider EEG. Consider cardiac workup. However these may have been completed. Also question if pt taking meds different than Rx'd based on Xanax history above. 7. Nonintractable episodic headache, unspecified headache type - ICD9: 784.0, ICD10: R51.9 Stable at present. On both Lyrica and Keppra as preventative. See dosing above. Again, pt poor historian, and presents with multiple complaints associated with recent hospitalization. Will attempt to obtain records and have pt follow up in 4 weeks to determine if further workup necessary. Darien Gudino MD HPI: Last seen by Dr. Gudino on 06/15/24 for SANTHOSH, falls, balance issues, neuropathy. Had episode of LOC, found to have sepsis, no records. Not taking lyrica? No longer using CPAP, encouraged to do so. Neuropathy stable, on lyrica 75mg bid for renal dosing. Unsure why patient fell, poor hx. On lyrica for neuropathy 75mg bid- has been very helpful. No new concerns with this, is overall doing well. Notes that she is fallen a lot less since her last appointment. Still occasionally trips, last fall was about a week ago where she tripped and fell down but no major injuries. Notes that she now has a service dog that helps her get back up. Still has concern of memory issues ever since her coma over a year ago where she was found to be septic per previous note. Is wondering if she will ever get her memory back from this event she is been having some legal issues. 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 Is having some issues with chewing and biting her mouth and tongue when eating. Didsee a dentist but is wondering who else to see for this issue. For headaches, notes unchanged, left-sided over the last few weeks but is unsure if she has a sinuscold. Compliant with Keppra. No new concerns with this. Is reporting some left hand pain in the first 3 digits, worse at night. History of carpal tunnel surgery when she was out of college in her 20s. Symptoms started exacerbating over the last few monthsto year. No recent testing for this, no significant weakness. Review of Systems ACTIVE PROBLEM LIST Asthma ([place]) Santhosh (Obstructive Sleep Apnea) Obesity Hypertension Sinus Arrhythmia First Degree Heart Block Obesity, Class II, Bmi 35-39.9 Nonintractable Episodic Headache Neuropathy Vertigo Ptsd (Post-Traumatic Stress Disorder) Bronchitis and Pneumonitis Due to Chemical Fumes ([place], [facility]) PAST MEDICAL HISTORY Diagnosis Date Asthma First degree heart block 05/16/2013 Outside post 05-02 follow-up screening, 2012. Hypertension 05/16/2013 Lyme disease Meniere disease Obesity 05/16/2013 SANTHOSH (obstructive sleep apnea) 05/16/2013 CPAP 11. Claims to be CPAP compliant. RA (rheumatoid arthritis) ([facility]) 2014 Sinus arrhythmia 05/16/2013 Outside post 05-02 follow-up screening, 2012. Sinusitis Sjogren's disease ([facility]) Medications: Reviewed fluticasone-salmeterol (ADVAIR DISKUS) 500-50 mcg/dose dsdv Inhale 1 puff as instructed two times aday. MOUNJARO 5 mg/0.5 mL pen injector Inject 5 mg subcutaneously one time a week. traMADol (ULTRAM) 50 mg tablet Take 50 mg by mouth every 6 hours as needed. metFORMIN ER (GLUCOPHAGE XR) 500 mg 24 hr tablet Take 500 mg by mouth daily with breakfast. furosemide (LASIX) 40 mg tablet Take 40 mg by mouth as needed. cetirizine (ZYRTEC) 10 mg tablet Take 10 mg by mouth once daily. calcium carbonate 600 mg-cholecalciferol 200 units 600 mg-5 mcg (200 unit) tab 1 tablet once daily. aspirin, enteric coated (ASPIRIN, ENTERIC COATED) 81 mg EC tablet Take 81 mg by mouth once daily. montelukast (SINGULAIR) 10 mg tablet TAKE 1 TABLET DAILY AT BEDTIME Atomoxetine 80 mg capsule once daily. cevimeline (EVOXAC) 30 mg capsule three times a day. TRULICITY 1.5 mg/0.5 mL pen injector one time a week. Etanercept (ENBREL SURECLICK) 50 mg/mL (1 mL) one time a week. glipiZIDE (GLUCOTROL XL) 5 mg 24 hr tablet once daily. meclizine (ANTIVERT) 25 mg tab two times a day. metoprolol tartrate, short acting, (LOPRESSOR) 25 mg tablet Take 25 mg by mouth two times a day. ondansetron (ZOFRAN) 4 mg tablet as needed for nausea/vomiting. guaiFENesin (MUCINEX) 600 mg 12 hr tablet Take 1 tablet by mouth twice daily. (Patient taking differently: Take 600 mg by mouth two times a day. prn) Mucus Clearing Device jeannine Provide 1 mucus clearing device. albuterol (PROVENTIL) 2.5 mg /3 mL (0.083 %) nebulizer solution USE 3 ML VIA NEBULIZER EVERY 6 HOURS NEED OVER 5-15 MINUTES FOR WHEEZING AND SHORTNESS OF BREATH albuterol HFA (PROAIR HFA) 90 mcg/actuation inhaler Inhale 2 Puffs as instructed every 4 hours as needed for wheezing/shortness of breath. JARDIANCE 10 mg tablet Take 10 mg [...] provided mask fitting as pts mask leaking. predniSONE (DELTASONE) 10 mg tablet 2 DAILY FOR 1 WEEK THEN 1 TAB DAILY FOR 1 WEEK. KEEP REMAINDER ON HAND FOR FUTURE FLARES venlafaxine ER (EFFEXOR XR) 150 mg 24 hr capsule 300 mg once daily. (Patient taking differently: Take 225 mg by mouth once daily.) fluticasone (FLONASE) 50 mcg/actuation nasal spray Use 1 [place] in each nostril once daily. losartan (COZAAR) 50 mg tablet Take 1 tablet by mouth once daily. (Patient taking differently: Take25 mg by mouth once daily.) citalopram (CELEXA) 20 mg tablet Take 30 mg by mouth once daily. QUEtiapine (SEROQUEL) 100 mg tablet Take 200 mg by mouth daily at bedtime. amLODIPine 5 mg ORAL tablet Take 5 mg by mouth once daily. hydrochlorothiazide 25 mg ORAL tablet Take 12.5 mg by mouth once daily. ALPRAZolam (XANAX) 0.5 mg tablet Take 0.5 mg by mouth at bedtime as needed. pregabalin (LYRICA) 75 mg capsule Take 1 capsule by mouth two times a day for 180 days. levETIRAcetam ER (KEPPRA XR) 750 mg 24 hr tablet Take 1 tablet by mouth once daily. ipratropium (ATROVENT) 0.02 % nebulizer solution Use 2.5 mL via nebulizer four times daily as needed for wheezing/shortness of breath. OVER 5-15 MINUTES FOR WHEEZING OR SHORTNESS OF BREATH ipratropium (ATROVENT) 0.02 % nebulizer solution Use 2.5 mL via nebulizer one time only for 1 dose.OVER 5-15 MINUTES FOR WHEEZING OR SHORTNESS OF BREATH (Patient not taking: Reported on 10/23/2024) ALLERGIES Allergen Reactions Bactrim [Sulfametho* Hives Erythromycin GI Upset, Vomiting Nut - Unspecified Anaphylaxis Tree Nuts. Anaphylaxis. Natural Oatmeal [Di* Diarrhea Pineapple Other: See Comments Causes mouth to feel razors FAMILY HISTORY Problem Relation Age of Onset Diabetes Mother Onset age 18, age 81. Heart disease Mother 2 valve surgeries. Cancer Father 82 Esophageal cancer Heart Brother Atrial fib. Cancer Paternal Grandmother Lung, mets to brain. PAST SURGICAL HISTORY Procedure Laterality Date ANES ARTHROSCOPIC TOTAL SHOULDER REPLACEMENT Left 04/05/2017 Cory KNEE ARTHROSCOP MENISCUS REPAIR MED/LAT 1998 and 2010 PAST SURGICAL HISTORY OF Cardiac Stent RECONSTRUCTION ROTATOR CUFF AVULSION CHRONIC 1989 TONSILLECTOMY & ADENOIDECTOMY AGE 13/> Social Hx: @Alcohol Use: Not on file Tobacco Use: Medium Risk (03/05/2025) Patient History Smoking Tobacco Use: Former Smokeless Tobacco Use: Never Passive Exposure: Not on file 03/05/25 1331 BP: 111/75 Pulse: 75 Neurologic Exam Cognitive and Language: Alert and answered questions appropriately. Language was fluent. Cranial Nerves: Extraocular movements were full with no diplopia or nystagmus. Facial strength was symmetric. Motor: Slight decrease in strength in the left hand, poor strength testing in the right upper extremity due to shoulder pain. Negative Phalen's and Tinel's, previous scar over left wrist present. Sensory: Intact to light touch Coordination: Normal finger to nose and heel to valencia testing bilaterally. Normal gait. Labs: Lab Results Component Value Date WBC 12.31 (H) 02/25/2023 HCT 42.4 02/25/2023 MCV 79.7 (L) 02/25/2023 PLT 285 02/25/2023 Lab Results Component Value Date HBA1C 6.8 04/29/2021 No results found for: CHOL, HDL, LDL, TG Results for orders placed or performed during the hospital encounter of 02/05/25 CT CHEST WO IVCON Result Value Ref Range Radiology Result ACTIONABLE (Actionable) Radiology: MRI Head/Brain - Last 2 Impressions MRI BRAIN WO IVCON Exam End: 01/22/2022 1:35 PM (Final result) Impression: IMPRESSION: 1. Age-appropriate unremarkable MRI brain. 2. No acute abnormality.... MRI BRAIN WO IVCON Exam End: 03/18/2020 11:33 AM (Final result) Impression: IMPRESSION: MRI findings related to the fat density foci inferior to the splenium of the corpus callosum and within the falx seen on the comparison head CT of 10/05/2017 are consistent with midline lipomas. These are developmental ... and MRI Spine - Last 2 Impressions MRI LUMBAR SPINE WO IVCON Exam End: 05/31/2023 10:52 AM (Final result) Impression: IMPRESSION: Degenerative changes most severe at L2-L3 and L4-L5 as itemized above. Anatomic Lumbar Variant: None. L4-5 is considered the level of the iliac crest and assume there are 5 lumbar-type vertebrae. Rn Utilization Management Um: JAMES Transcribe Date/Time: May 31 2023 11:43A Dictated by : KORINA MARTIN MD This examination was interpreted and the report reviewed and electronically signed by: KORINA MARTIN MD on May 31 2023 11:47AM EST MRI CERVICAL SPINE WO IVCON Exam End: 03/18/2020 11:33 AM (Final result) Impression: IMPRESSION: Mild degenerative changes in the cervical spine as described above including mild left neural foraminal stenosis at multiple levels. Anatomic Variant: None. Assume 7 cervical vertebrae with counting from the craniocervical junction. Rn Utilization Management Um: JAMES Transcribe Date/Time: Mar 18 2020 1:30P Dictated by : ADA MASCORRO MD This examination was interpreted and the report reviewed and electronically signed by: ADA MASCORRO MD on Mar 18 2020 1:47PM EST This note was dictated using [employer] speech recognition software and may contain some errors that were a result of the program not accurately transcribing what was dictated, despite efforts to make corrections. Note that unless urgent, test and MRI results will be discussed at next follow- up visit. PROMIS (Patient-Reported Outcomes Measurement Information System) is a set of person-centered measures that evaluates and monitors physical, social, and emotional health. It can be used with the general population and with individuals living with chronic conditions. PROMIS 10: PHYSICAL AND MENTAL HEALTH: Medical Decision Making: Medical Decision Making Level: 1 - N/A I spent a total of 40 minutes on the date of the service which included preparing to see the patient, [id number] patient care, completing clinical documentation, obtaining and/or reviewing separately obtained history, performing a medically appropriate examination, counseling and educating the pat ient/family/caregiver, and ordering medications, tests, or procedures. Recording using [employer] software for draft documentation of the visit was discussed with the patient/authorized lead customer service representative; all questions welcomed and answered. Patient/authorized lead customer service representative agreed to proceed PDMP website checked and validated. All prescriptions have been APPROPRIATELY filled. No suspiciousactivity was identified. 03/05/2025 by Sheela Mclain PA-C [facility] Telephone encounter Note * Telephone Encounter - Kandice Jung APRN.CNP - 02/15/2025 12:15 PM EDT Pt must keep follow up appt scheduled with Michelle Mclain for additional RF. [facility] Miscellaneous Notes* Telephone Encounter - Kandice Jung APRN.CNP - 02/15/2025 12:15 PM EDT Pt must keep follow up appt scheduled with Michelle Mclain for additional RF. * Telephone Encounter - Siena Junior RN - 02/15/2025 10:26 AM EDT Patient requesting refill of pregabalin as pended. Pt asking if this can be sent today. Pt would like a call once the refill request has been sent to her pharmacy. The patient has been identified by name and date of : Yes Caregiver verified no other encounters exist for this prescription request: Yes Caregiver confirmed with patient/requestor that no other refills are due, in the near future, with this provider at this time: Yes The last office visit in the department: 06/15/2024 Does the patient have a future office visit with this provider/department: Yes 03/05/2025 Requested Prescriptions Pending Prescriptions Disp Refills pregabalin (LYRICA) 75 mg capsule 60 capsule 0 Sig: Take 1 capsule by mouth two times a day for 30 days. Siena Junior RN [facility] Telephone encounter Note * Telephone Encounter - Siena Junior RN - 02/15/2025 10:26 AM EDT Patient requesting refill of pregabalin as pended. Pt asking if this can be sent today. Pt would like a call once the refill request has been sent to her pharmacy. The patient has been identified by name and date of : Yes Caregiver verified no other encounters exist for this prescription request: Yes Caregiver confirmed with patient/requestor that no other refills are due, in the near future, with this provider at this time: Yes The last office visit in the department: 06/15/2024 Does the patient have a future office visit with this provider/department: Yes 03/05/2025 Requested Prescriptions Pending Prescriptions Disp Refills pregabalin (LYRICA) 75 mg capsule 60 capsule 0 Sig: Take 1 capsule by mouth two times a day for 30 days. Siena Junior RN [facility] Telephone encounter Note* Telephone Encounter - Analia Garcia MA - 02/11/2025 10:02 AM EDT Received continuity of care document from patient for labs have been sent to scanning. [facility] Miscellaneous Notes* Telephone Encounter - Analia Garcia MA - 02/11/2025 10:02 AM EDT Received continuity of care document from patient for labs have been sent to scanning. documented in [facility] History of Present illness Narrative* Reef Dane Crawford RT(R) - 02/05/2025 2:20 PM EDT Radiology Service Progress Note PATIENT NAME: Rajwinder Wylie DATE OF SERVICE: February 05, 2025 TIME: 2:54 PM PATIENT IDENTITY VERIFICATION COMPLETED USING TWO (2) IDENTIFIERS: Name and Date of confirmedby patient verbally. FALL SCREENING: Has the patient had 2 falls in the last year or 1 fall with injury or currently using an Ambulatory Assistive Device (Walker, Cane, Wheelchair, Crutches, etc.)? No PATIENT GENDER DATA: Assigned female at . status: : No status:NO. PATIENT RELEVANT IMPLANT DATA REVIEWED: Not Applicable PATIENT PRESENTS WITH AN IMPLANTABLE OR ATTACHED MEDART OPERATOR: No RADIOLOGY DEPARTMENT: CT; Exam(s) Completed: Chest PERIPHERAL IV DATA: Not applicable SIGNED BY: RT Dyana(R) February 05, 2025 2:54 PM documented in this encounterM[facility]06-[facility]25 NoteHNO ID: [id number] Author: DANE WEINSTEIN RT(Candie) Service: ? Author Type: Bezel Cutter Type: Progress Notes Filed: 02/05/2025 14:54 Note Text: Radiology Service Progress Note PATIENT NAME: Rajwinder Wylie DATE OF SERVICE: February 05, 2025 TIME: 2:54 PM PATIENT IDENTITY VERIFICATION COMPLETED USING TWO (2) IDENTIFIERS: Name and Date of confirmed by patient verbally. FALL SCREENING: Has the patient had 2 falls in the last year or 1 fall with injury or currently using an Ambulatory Assistive Device (Walker, Cane, Wheelchair, Crutches, etc.)? No PATIENT GENDER DATA: Assigned female at . status: : No status: NO. PATIENT RELEVANT IMPLANT DATA REVIEWED: Not Applicable PATIENT PRESENTS WITH AN IMPLANTABLE OR ATTACHED MEDART OPERATOR: No RADIOLOGY DEPARTMENT: CT; Exam(s) Completed: Chest PERIPHERAL IV DATA: Not applicable SIGNED BY: RT Dyana(R) February 05, 2025 2:54 [facility]06-04-2025 NoteHNO ID: [id number] Author: ANALIA RIVERA PA-C Service: ? Author Type: Physician Open Source Developer Type: Progress Notes Filed: 01/25/2025 08:00 Note Text: Patient Name: Rajwinder Wylie PRIMARY CARE PROVIDER: Davion Peoples MD REASON FOR VISIT: No chief complaint on file. HPI: 74 year old obese female, former 10 pack year smoker, with PMH significant for Asthma, SANTHOSH on CPAP, RA, Sjogren's, CAD, s/p PCI 01/26/[address] 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 Did have allergies as child, required immunotherapy. Asthma had been under good control until COVID infection in August. Current therapy consists of Advair, Singulair and as needed Albuterol. Rajwinder was found unresponsive by the insurance rater in her home in early September 2023 following a welfare check initiated by her therapist and physician due to missed appointments. She has no recollection of events leading up to her hospitalization or the initial period of her hospital stay, with her first memory being at [facility] around mid-November. She was hospitalized for approximately 6 days secondary to sepsis most likely from an UTI, and then transferred to [facility] for rehabilitation, where she stayed until mid-February 2024. Since returning home, she reports her breathing has been pretty good and she has been using her CPAP at night, stating she does not sleep well without it. She has not needed to use her rescue inhaler. She has been using both Advair and Symbicort inhalers, but prefers Advair due to the taste of Symbicort. She also takes Singulair and recently received a new bottle. She reports frequent falls and balance issues, which she attributes to missing toes. She has a 9-month-old Giant Schnauzer puppy that she is training to be a service dog to assist with her balance. She also has a Life Alert system, which she is in the process of setting up. She underwent reverse shoulder surgery on November 26, which took longer than expected due to a 5-year delay in seeking treatment. She developed pneumonia postoperatively, which she attributes to being intubated during the surgery. She reports occasional coughing and expects to need another surgery due to her humerus being approximately 4 inches lower than it should be. She experiences clicking in her shoulder and has monthly follow-up appointments with her surgeon, who monitors her condition with X-rays. She reports feeling isolated and unsupported by her catholic community, who she believes judged her for the condition of her home during her hospitalization. She is considering finding a new catholic and exploring other social activities to improve her sense of community and support. Modified Medical Research [place] Dyspnea Scale (MMRC) I get short of breath when hurrying on level ground or walking up a slight hill 1 PAST MEDICAL HISTORY Diagnosis Date Asthma First degree heart block 05/16/2013 Outside post 9-11 follow-up screening, 2012. Hypertension 05/16/2013 Lyme disease Meniere disease Obesity 05/16/2013 SANTHOSH (obstructive sleep apnea) 05/16/2013 CPAP 11. Claims to be CPAP compliant. RA (rheumatoid arthritis) ([facility]) 2014 Sinus arrhythmia 05/16/2013 Outside post 911 follow-up screening, 2012. Sinusitis Sjogren's disease ([facility]) Allergies: Bactrim [Sulfametho* Hives Erythromycin GI Upset, Vomiting Nut - Unspecified Anaphylaxis Comment:Tree Nuts. Anaphylaxis. Natural Oatmeal [Di* Diarrhea Pineapple Other: See Comments Comment:Causes mouth to feel razors pregabalin (LYRICA) 75 mg capsule Take 1 capsule by mouth two times a day for 30 days. budesonide-formoterol (SYMBICORT) 160-4.5 mcg/actuation inhaler Inhale 2 Puffs as instructed two times a day. MOUNJARO 5 mg/0.5 mL pen injector Inject 5 mg subcutaneously one time a week. traMADol (ULTRAM) 50 mg tablet Take 50 mg by mouth every 6 hours as needed. metFORMIN ER (GLUCOPHAGE XR) 500 mg 24 hr tablet Take 500 mg by mouth daily with breakfast. furosemide (LASIX) 40 mg tablet Take 40 mg by mouth as needed. cetirizine (ZYRTEC) 10 mg tablet Take 10 mg by mouth once daily. calcium carbonate 600 mg-cholecalciferol 200 units 600 mg-5 mcg (200 unit) tab 1 tablet once daily. aspirin, enteric coated (ASPIRIN, ENTERIC COATED) 81 mg EC tablet Take 81 mg by mouth once daily. levETIRAcetam ER (KEPPRA XR) 750 mg 24 hr tablet Take 1 tablet by mouth once daily. montelukast (SINGULAIR) 10 mg tablet TAKE 1 TABLET DAILY AT BEDTIME Atomoxetine 80 mg capsule once daily. cevimeline (EVOXAC) 30 mg capsule three times a day. TRULICITY 1.5 mg/0.5 mL pen injector one time a week. (Patient not taking: Reported on 09/19/2023) Etanercept (ENBREL SURECLICK) 50 mg/mL (1 mL) one time a week. (Patient not taking: Reported on 09/19/2023) glipiZIDE (GLUCOTROL XL) 5 mg 24 hr tablet once daily. meclizine (ANTIVERT (more content not included)...[facility] 01-23-2025 History of Present illness Narrative* Analia Rivera PA-C - 01/23/2025 3:01 PM EDT Patient Name: Rajwinder Wylie PRIMARY CARE PROVIDER: Davion Peoples MD REASON FOR VISIT: No chief complaint on file. HPI: 74 year old obese female, former 10 pack year smoker, with PMH significant for Asthma, SANTHOSH on CPAP, RA, Sjogren's, CAD, s/p PCI 01/26/[address] 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 Did have allergies as child, required immunotherapy. Asthma had been under good control until COVID infection in August. Current therapy consists of Advair, Singulair and as needed Albuterol. Rajwinder was found unresponsive by the insurance rater in her home in early September 2023 following a welfarecheck initiated by her therapist and physician due to missed appointments. She has no recollection of events leading up to her hospitalization or the initial period of her hospital stay, with her first memory being at [facility] around mid-November. She was hospitalized for approximately 6 days secondary to sepsis most likely from an UTI, and then transferred to [facility] for rehabilitation, where she stayed until mid- February 2024. Since returning home, she reports her breathing has been pretty good and she has been using her CPAP at night, stating she does not sleep well without it. She has not needed to use her rescue inhaler. She has been using both Advair and Symbicort inhalers, but prefers Advair due to the taste of Symbicort. She also takes Singulair and recently received a new bottle. She reports frequent falls and balance issues, which she attributes to missing toes. She has a 9-month-old Giant Schnauzer puppy that she is training to be a service dog to assist with her balance. She also has a Life Alert system, which she is in the process of setting up. She underwent reverse shoulder surgery on November 26, which took longer than expected due to a 5-year delay in seeking treatment. She developed pneumonia postoperatively, which she attributes to beingintubated during the surgery. She reports occasional coughing and expects to need another surgery due to her humerus being approximately 4 inches lower than it should be. She experiences clicking in her shoulder and has monthly follow-up appointments with her surgeon, who monitors her condition with X-rays. She reports feeling isolated and unsupported by her catholic community, who she believes judged her for the condition of her home during her hospitalization. She is considering finding a new catholic andexploring other social activities to improve her sense of community and support. Modified Medical Research [place] Dyspnea Scale (MMRC) I get short of breath when hurrying on level ground or walking up a slight hill 1 PAST MEDICAL HISTORY Diagnosis Date Asthma First degree heart block 05/16/2013 Outside post 05-02 follow-up screening, 2012. Hypertension 05/16/2013 Lyme disease Meniere disease Obesity 05/16/2013 SANTHOSH (obstructive sleep apnea) 05/16/2013 CPAP 11. Claims to be CPAP compliant. RA (rheumatoid arthritis) ([facility]) 2013 Sinus arrhythmia 05/16/2013 Outside post 05-02 follow-up screening, 2012. Sinusitis Sjogren's disease ([facility]) Allergies: Bactrim [Sulfametho* Hives Erythromycin GI Upset, Vomiting Nut - Unspecified Anaphylaxis Comment:Tree Nuts. Anaphylaxis. Natural Oatmeal [Di* Diarrhea Pineapple Other: See Comments Comment:Causes mouth to feel razors pregabalin (LYRICA) 75 mg capsule Take 1 capsule by mouth two times a day for 30 days. budesonide-formoterol (SYMBICORT) 160-4.5 mcg/actuation inhaler Inhale 2 Puffs as instructed two times a day. MOUNJARO 5 mg/0.5 mL pen injector Inject 5 mg subcutaneously one time a week. traMADol (ULTRAM) 50 mg tablet Take 50 mg by mouth every 6 hours as needed. metFORMIN ER (GLUCOPHAGE XR) 500 mg 24 hr tablet Take 500 mg by mouth daily with breakfast. furosemide (LASIX) 40 mg tablet Take 40 mg by mouth as needed. cetirizine (ZYRTEC) 10 mg tablet Take 10 mg by mouth once daily. calcium carbonate 600 mg-cholecalciferol 200 units 600 mg-5 mcg (200 unit) tab 1 tablet once daily. aspirin, enteric coated (ASPIRIN, ENTERIC COATED) 81 mg EC tablet Take 81 mg by mouth once daily. levETIRAcetam ER (KEPPRA XR) 750 mg 24 hr tablet Take 1 tablet by mouth once daily. montelukast (SINGULAIR) 10 mg tablet TAKE 1 TABLET DAILY AT BEDTIME Atomoxetine 80 mg capsule once daily. cevimeline (EVOXAC) 30 mg capsule three times a day. TRULICITY 1.5 mg/0.5 mL pen injector one time a week. (Patient not taking: Reported on 09/19/2023) Etanercept (ENBREL SURECLICK) 50 mg/mL (1 mL) one time a week. (Patient not taking: Reported on 09/19/2023) glipiZIDE (GLUCOTROL XL) 5 mg 24 hr tablet once daily. meclizine (ANTIVERT) 25 mg tab two times a day. metoprolol tartrate, short acting, (LOPRESSOR) 25 mg tablet Take 25 mg by mouth two times a day. ondansetron (ZOFRAN) 4 mg tablet as needed for nausea/vomiting. fluticasone-salmeterol (ADVAIR DISKUS) 500-50 mcg/dose dsdv Inhale 1 Puff as instructed twice daily. guaiFENesin (MUCINEX) 600 mg 12 hr tablet Take 1 tablet by mouth twice daily. (Patient taking differently: Take 600 mg by mouth two times a day. prn) Mucus Clearing Device jeannine Provide 1 mucus clearing device. albuterol (PROVENTIL) 2.5 mg /3 mL (0.083 %) nebulizer solution USE 3 ML VIA NEBULIZER EVERY 6 HOURS NEED OVER 5-15 MINUTES FOR WHEEZING AND SHORTNESS OF BREATH (Patient not taking: Reported on 07/20/2023) albuterol HFA (PROAIR HFA) 90 mcg/actuation inhaler [...] In-line filter - Respironics Device. Lifetime supplies. (Patient not taking: Reported on 06/15/2024) CPAP Please set at 10-20 cmH2O with humidity with download to us in 4 weeks. Also please provide mask fitting (dreamwear under the nose nasal mask). (Patient not taking: Reported on 06/15/2024) potassium chloride 20 mEq TbER Take 1 [...] provided mask fitting as pts mask leaking. (Patient not taking: Reported on 09/19/2023) ipratropium (ATROVENT) 0.02 % nebulizer solution Use 2.5 mL via nebulizer one time only for 1 dose.OVER 5-15 MINUTES FOR WHEEZING OR SHORTNESS OF BREATH (Patient not taking: Reported on 10/23/2024) predniSONE (DELTASONE) 10 mg tablet 2 DAILY FOR 1 WEEK THEN 1 TAB DAILY FOR 1 WEEK. KEEP REMAINDER ON HAND FOR FUTURE FLARES venlafaxine ER (EFFEXOR XR) 150 mg 24 hr capsule 300 mg once daily. (Patient taking differently: Take 225 mg by mouth once daily.) fluticasone (FLONASE) 50 mcg/actuation nasal spray Use 1 [place] in each nostril once daily. losartan (COZAAR) 50 mg tablet Take 1 tablet by mouth once daily. (Patient taking differently: Take25 mg by mouth once daily.) citalopram (CELEXA) 20 mg tablet Take 30 mg by mouth once daily. QUEtiapine (SEROQUEL) 100 mg tablet Take 200 mg by mouth daily at bedtime. amLODIPine 5 mg ORAL tablet Take 5 mg by mouth once daily. hydrochlorothiazide 25 mg ORAL tablet Take 12.5 mg by mouth once daily. ALPRAZolam (XANAX) 0.5 mg tablet Take 0.5 mg by mouth at bedtime as needed. Social History Tobacco Use Smoking status: Former Current packs/day: 0.00 Average packs/day: 1 pack/day for 10.0 years (10.0 ttl pk-yrs) Types: Cigarettes Start date: 08/22/1971 Quit date: 08/22/1981 Years since quittin.4 Smokeless tobacco: Never Tobacco comments: No smoking in childhood home. Quit cold turkey. No current household ETS smoking, 02/12/19. Vaping Use Vaping status: Never Used Substance Use Topics Alcohol use: Yes Comment: [...] ARTHROSCOP MENISCUS REPAIR MED/LAT 1998 and 2010 PAST SURGICAL HISTORY OF Cardiac Stent RECONSTRUCTION ROTATOR CUFF AVULSION CHRONIC 1989 TONSILLECTOMY & ADENOIDECTOMY AGE 13/> I reviewed the past medical history, family history, social history and surgical history with changes noted above and updated in EMR. IMMUNIZATIONS Immunization History Administered Date(s) Administered COVID-19 original vaccine, age 12+ yr, monovalent ([employer] - PURPLE TOP) 10/30/2020 11/20/2020 04/17/2021 12/30/2021 COVID-19 vaccine, age 12+ yr, bivalent ([employer]CH) 05/25/2022 hepatitis A (HepA) vaccine, 2-dose series, ped/adol (HAVRIX-PEDS, VAQTA-PEDS) 08/10/2021 hepatitis B (HepB) vaccine, 3-dose series, age 20+ yr (ENGERIX-B, RECOMBIVAX HB) 08/10/2021 influenza (HD-IIV3) vaccine, age 65+ yr, high dose, trivalent, PF (FLUZONE HIGH-DOSE) 04/14/2018 04/20/2019 05/05/2019 influenza (HD-IIV4) vaccine, age 65+ yr, high dose, quadrivalent, PF (FLUZONE HIGH-DOSE) 04/29/2020 influenza (IIV3) vaccine, age 6 mo - 64 yr, trivalent (AFLURIA, FLULAVAL, FLUVIRIN, FLUZONE) 04/02/2016 04/10/2018 influenza (IIV4) vaccine, age 6 mo - 64 yr, quadrivalent (AFLURIA, FLULAVAL, FLUZONE) 04/02/2016 influenza (IIV4) vaccine, age 6 mo - 64 yr, quadrivalent, PF (AFLURIA, FLUARIX, FLULAVAL, FLUZONE) 05/25/2022 influenza (IIV4) vaccine, quadrivalent (AFLURIA, FLULAVAL, FLUZONE) 05/11/2021 pneumococcal conjugate (PCV13) vaccine, 13 valent (PREVNAR 13) 06/26/2018 pneumococcal conjugate (PCV20) vaccine, 20 valent (PREVNAR 20) 04/12/2023 pneumococcal polysaccharide (PPV23) vaccine, 23 valent (PNEUMOVAX 23) 07/17/2012 05/31/2016 06/20/2018 05/06/2020 REVIEW OF SYSTEMS: General: Denies fever/chills, fatigue, malaise, unintentional weight loss HEENT: Denies headaches, nosebleeds, congestion Neck: Denies lumps, pain, significant neck swelling Respiratory: See HPI Cardiovascular: Denies chest pain, syncope, palpitations GI: Denies abdominal pain, nausea, vomiting, diarrhea : Denies dysuria, hematuria Musculoskeletal: Denies joint pain or swelling Extremities: Denies calf pain, swelling Skin: Denies rash, itching Neuro: Denies headaches, dizziness VITALS: BP (P) 122/72 Pulse (P) 76 Resp (P) 16 Wt (P) 91.2 kg (201 lb) SpO2 (P) 95% BMI (P) 32.94 kg/m PHYSICAL EXAMINATION: General: Awake & alert, no distress, speaking in full sentences HEENT: NCAT, MMM. No oral thrush. Neck: Supple, no rigidity. Trachea is midline Heart: HR regular, S1/S2 Lungs: Non-labored breathing. Clear breath sounds bilaterally. No wheezes or crackles. Abdomen: Soft, non-tender Extremities: No edema Skin: Warm, dry Neurological: Moves all extremities x4. 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 Current ATS/ERS lung volume repeatability criteria met. ATS/ERS acceptability and repeatability standards for spirometry met. IMPRESSION: Spirometry is normal. The Lung volumes (FRC,ERV,RV) are in a pattern reflecting body habitus. The diffusing capacity is normal. Electronically Signed On 07-20-2023 20:43:38 EST by Hailey Eden MD ID: [id number] Name: RAJWINDER WYLIE Race: White Ht: 65.50 in Wt: 220.00 lbs Age: 73 Gender: Female : 1950 Dx: Unspecified asthma, uncomplicated Smoking Hx: Non-smoker Doctor: ANALIA RIVERA Test Date: 07/20/2023 Site: Tech: Suzie Ernst PRE-BRONCH POST-BRONCH Pre LLN Pred ULN %Pred Post %Pred %Chg SPIROMETRY FVC (L) 2.55 2.03 2.88 3.76 88 FEV1 (L) 1.84 1.54 2.22 2.86 82 FEV1/FVC 0.72 0.65 0.78 0.89 92 PEF L/s (L/sec) 7.22 3.93 5.72 7.51 126 FEF50 (L/sec) 2.18 1.57 3.17 4.78 68 FIF50 (L/sec) 2.44 FEF50/FIF50 0.90 90-100 FIVC (L) 2.40 IIJ67-22 (L/sec) 1.11 0.84 1.86 3.32 59 Time (sec) 10.07 FET PEF (sec) 0.06 CLIFTON (L) 0.08 Vol Extrap % (%) 3 LUNG VOLUMES TGV (L) 2.12 2.17 3.03 3.89 69 ERV (L) 0.29 0.96 29 RV (Pleth) (L) 2.09 1.68 2.31 2.93 90 SVC (L) 2.77 2.03 2.88 3.76 96 IC (L) 2.27 1.92 118 TLC (Pleth) (L) 4.70 4.40 5.28 6.16 89 RV/TLC (Pleth) (%) 45 35 44 53 100 LUNG DIFFUSION DLCOunc (ml/min/mmHg) 19.28 14.73 20.90 27.07 92 VA (L) 4.32 4.21 5.31 6.41 81 DLunc/VA (ml/min/mmHg/L) 4.46 2.87 4.19 5.50 106 BHT (sec) 10.22 IVC (L) 2.52 Comments: ATS/ERS acceptability and repeatability standards for DLCO met. Current ATS/ERS lung volume repeatability criteria met. ATS/ERS acceptability and repeatability standards for spirometry met. Arterial blood gas: No results found for: PH, PCO2, PO2, HCO3, BE, LACT CT Chest other findings: Last CT Chest - Impression Only CT CHEST WO IVCON Exam End: 07/01/2023 3:58 PM (Final result) Impression: IMPRESSION: 1. Stable scarring in the anterior right upper lobe and bilateral lower lobes. No acute airspace disease. 2. Stable scattered 2 to 3 mm pulmonary nodules. No new nodules are visualized. 3. No thoracic lymphadenopathy ... Last XR Chest - Impression Only XR CHEST 2V FRONTAL/LAT Exam End: 02/25/2023 10:59 AM (Final result) Impression: IMPRESSION: Atelectasis or scarring in the lingula. ... ASSESSMENT/PLAN: 1. Severe persistent asthma without complication (HCC) - ICD9: 493.90, ICD10: J45.50 (primary diagnosis) Asthma is currently stable. Previously using both Advair and Symbicort, but prefers Advair due to taste. No recent use of rescue inhaler. - Discontinue Symbicort. - Continue Advair. - Continue Singulair. - Refill Advair prescription through [facility]. - FLUTICASONE 500 MCG-SALMETEROL 50 MCG/DOSE BLISTR POWDR FOR INHALATION 2. Lung nodules - ICD9: 793.19, ICD10: R91.[address] chest in June 2024. Will obtain CT chest now. - CT CHEST WO IVCON 3. COVID-19 phoenix espinoza - ICD9: 139.8, ICD10: U09.9 4. Sjogren's syndrome, with unspecified organ involvement (HCC) - ICD9: 710.2, ICD10: M35.00 Maintain upper airway moisture as able. At risk for development of bronchiectasis. 5. Former smoker - ICD9: V15.82, ICD10: Z87.89 Remote former minimal smoker. Patient is encouraged to call with any questions, concerns or new issues prior to next scheduled visit. Some documentation from previous encounter of 07/20/2023 was copied and pasted after being reviewedand edited as appropriate for today's visit. Recording using [employer] software for draft documentation of the visit was discussed with the patient/authorized lead customer service representative; all questions welcomed and answered. Patient/authorized lead customer service representative agreed to proceed. Analia Rivera PA-C documented [facility] Telephone encounter Note * Telephone Encounter - Darien Gudino Jr., MD - 12/27/2024 10:57 AM EDT Please clarify. Jonnie Jung YEAST CAKE CUTTER - did you see patient earlier today as was scheduled? Thank you, Darien Gudino MD [facility] Miscellaneous Notes* Telephone Encounter - Darien Gudino Jr., MD - 12/27/2024 10:57 AM EDT Please clarify. Jonnie Jung YEAST CAKE CUTTER - did you see patient earlier today as was scheduled? Thank you, Darien Gudino MD * Telephone Encounter - Carol Faust RN - 12/27/2024 9:40 AM EDT Call to patient to confirm pharmacy- [facility]. Patient is rescheduled with Corey Jung APRN.CNP 01-11-25. 1 month refill pended and forwarded to provider for review. * Telephone Encounter - Jessica Ramires - 12/27/2024 8:36 AM EDT Patient contacted the office stating she missed her vv with KD due to having issues with mychart. Appointment was rescheduled for med refill. Patient needs a bridge rx sent for pregabalin (LYRICA) 75 mg capsule ( documented [facility] Telephone encounter Note * Telephone Encounter - Carol Faust RN - 12/27/2024 9:40 AM EDT Call to patient to confirm pharmacy- [facility]. Patient is rescheduled with Corey Jung APRN.YEAST CAKE CUTTER 01-11-25. 1 month refill pended and forwarded to provider for review. [facility]05-08-[facility] Telephone encounter Note* Telephone Encounter - Jessica Ramires - 12/27/2024 8:36 AM EDT Patient contacted the office stating she missed her vv with KD due to having issues with mychart. Appointment was rescheduled for med refill. Patient needs a bridge rx sent for pregabalin (LYRICA) 75 mg capsule ( [facility] Telephone encounter Note* Telephone Encounter - Therese Mckee RN - 12/25/2024 12:07 PM EDT Patient returns call and notified of below. Transferred to schedule sooner neuro appt with Clemente. Therese Mckee RN [facility] Miscellaneous Notes* Telephone Encounter - Therese Mckee RN - 12/25/2024 12:07 PM EDT Patient returns call and notified of below. Transferred to schedule sooner neuro appt with Clemente. Therese Mckee RN * Telephone Encounter - Liu Esquivel OCCA - 12/21/2024 1:19 PM EDT TC to patient to scheduled with Corey Jung in [place]. No answer, left VM to return call. MAYCOL Lopez * Telephone Encounter - Darien Gudino Jr., MD - 12/20/2024 11:14 PM EDT Pt was supposed to be seen 4 weeks following prior visit now almost 6 months ago. Patient needs to schedule sooner follow up with ROCHELLE. Darien Gudino MD * Telephone Encounter - Jessica Victor LPN - 12/20/2024 4:47 PM EDT Appointment scheduled 06-03-25. Jessica Victor LPN * Telephone Encounter - Eva Prdao LPN - 12/20/2024 2:19 PM EDT The patient has been identified by name and date of : Yes Caregiver verified no other encounters exist for this prescription request: Yes Caregiver confirmed with patient/requestor that no other refills are due, in the near future, with this provider at this time: Yes The last office visit in the department: 06/15/2024 Does the patient have a future office visit with this provider/department: Yes transferred to chute greaser to get appt set up Requested Prescriptions Pending Prescriptions Disp Refills pregabalin (LYRICA) 75 mg capsule 180 capsule 0 Sig: Take 1 capsule by mouth two times a day for 90 days. Eva Prado LPN December 20, 2024 2:19 PM [facility] * Telephone Encounter - Liu Esquivel OCCA - 12/21/2024 1:19 PM EDT TC to patient to scheduled with Corey Jung in [place]. No answer, left VM to return call. MAYCOL Lopez [facility]05-01-2025 Telephone encounter Note* Telephone Encounter - Darien Gudino Jr., MD - 12/20/2024 11:14 PM EDT Pt was supposed to be seen 4 weeks following prior visit now almost 6 months ago. Patient needs to schedule sooner follow up with ROCHELLE. Darien Gudino MD [facility]05-01-2025 Telephone encounter Note* Telephone Encounter - Jessica Victor LPN - 12/20/2024 4:47 PM EDT Appointment scheduled 06-03-25. Jessica Victor LPN [facility]05-01-2025 Telephone encounter Note* Telephone Encounter - Eva Prado LPN - 12/20/2024 2:19 PM EDT The patient has been identified by name and date of : Yes Caregiver verified no other encounters exist for this prescription request: Yes Caregiver confirmed with patient/requestor that no other refills are due, in the near future, with this provider at this time: Yes The last office visit in the department: 06/15/2024 Does the patient have a future office visit with this provider/department: Yes transferred to chute greaser to get appt set up Requested Prescriptions Pending Prescriptions Disp Refills pregabalin (LYRICA) 75 mg capsule 180 capsule 0 Sig: Take 1 capsule by mouth two times a day for 90 days. Eva Prado LPN December 20, 2024 2:19 PM [facility]04-09-2025 Consult note Author Suzanne Dawkins [facility] Note Date/Time November 28, 2024 1:24 pm [facility] Medical Records Department [address] [place] [id number] Counseling Note - Pharmacy 11/28/24 1319 MR#: [id number] Acct: [id number] Name: RAJWINDER WYLIE Rep #:[id number] : 1950 74 From: Suzanne Dawkins PCP: Dr. Davion Peoples MD Status :ADM TAI Y Location: [place] [address] Pharmacy [facility] Pharmacy Service has performed discharge medication reconciliation and counseling for this patient. 1. ACETAMINOPHEN 1000MG PO Q8 2. DOXYCYCLINE 100MG PO BID X 7 DAYS 3. OXYCODONE 5-10MG PO Q4H PRN PAIN 4. SENNA/DOCUSATE 2T PO BID 5. ASPIRIN 81MG PO BID X 2 WEEKS, THEN RESUME DAILY 12/13 The patient's discharge medication list was reviewed for discrepancies and discrepancies were resolved. The patient was counseled on the following discharge medications and changes in medications for homegoing were reviewed. The Reason for Use, instructions for use, and potential side effects were reviewed for all new medications. The patient's questions regarding all of their medications were answered. The patient was able to verbally demonstrate an understanding of their dischargemedications. Medications at Discharge Home Medications fluticasone 500 mcg-salmeterol 50 mcg/dose blistr powdr for inhalation (Advair Diskus) 1 puff inhalation BID shortness of breath 01/23/15 albuterol sulfate 90 mcg/actuation aerosol inhaler (ProAir HFA) 1 - 2 puff inhalation Q4H PRN Asthma 04/15/15 montelukast 10 mg tablet 10 mg PO QHS allergies 04/15/15 atorvastatin 20 mg tablet 20 mg PO QHS cholesterol 09/23/22 citalopram 40 mg tablet 30 mg PO QHS sleep 09/23/22 empagliflozin 10 mg tablet (Jardiance) 10 mg PO DAILY diabetes 09/23/22 hydrochlorothiazide 12.5 mg tablet 12.5 mg PO DAILY blood pressure 09/23/22 leflunomide 20 mg tablet 20 mg PO DAILY inflammation 09/23/22 levetiracetam 750 mg tablet,extended release 24 hr 750 mg PO QHS seizures 09/23/22 losartan 100 mg tablet 100 mg PO QHS blood pressure 09/23/22 metformin 500 mg tablet 500 mg PO DAILY diabetes 09/23/22 ondansetron HCl 4 mg tablet 4 mg PO Q8H PRN Nausea 09/23/22 potassium chloride 20 mEq tablet,extended release 20 meq PO DAILY potassium 09/23/22 quetiapine 100 mg tablet 200 mg PO QHS mood disorder 09/23/22 tiotropium bromide 2.5 mcg/actuation mist for inhalation (Spiriva Respimat) 2 puff inhalation DAILY shortness of breath 09/23/22 meclizine 25 mg tablet 25 mg PO BID dizziness 11/26/22 venlafaxine 150 mg capsule,extended release 24 hr 225 mg PO DAILY mood 12/15/22 aspirin 81 mg tablet,delayed release (Adult Low Dose Aspirin) 81 mg PO DAILY heart 01/06/23 Held on 11/28/24. Instructions: Resume on 12/13/24. guaifenesin 600 mg tablet, extended release 12 hr (Mucinex) 600 mg PO BID PRN congestion 04/29/23 prednisone 20 mg tablet 5 mg PO DAILY PRN pain 04/29/23 fluticasone propionate 50 mcg/actuation nasal spray,suspension 1 spray intranasal DAILY allergy symptoms 10/12/23 alprazolam 0.5 mg tablet 0.5 mg PO DAILY PRN Anxiety #10 tabs 10/18/23 alprazolam 1 mg tablet 1 mg PO QHS #20 tabs 10/18/23 pregabalin 75 mg capsule 75 mg PO BID 01/17/24 metoprolol tartrate 25 mg tablet 25 mg PO BID #180 tabs 05/30/24 furosemide 40 mg tablet 20 mg (1/2 x 40 mg) PO DAILY PRN edema #30 tabs 07/16/24 tirzepatide 5 mg/0.5 mL subcutaneous pen injector (Mounjaro) 5 mg subcut QWEEK 11/22/24 acetaminophen 500 mg tablet 1,000 mg (2 x 500 mg) PO Q8H #180 tabs 11/28/24 aspirin 81 mg tablet,delayed release 81 mg PO BIDCM 2 weeks #28 tabs 11/28/24 doxycycline monohydrate 100 mg capsule 100 mg PO BID 7 days #14 caps 11/28/24 oxycodone 5 mg tablet 5 - 10 mg (1 - 2 x 5 mg) PO Q4H PRN PRN Pain Score 4-10 7 days #30 tabs 11/28/24 sennosides 8.6 mg-docusate sodium 50 mg tablet (Stimulant Laxative Plus) 2 tab PO BID #14 tabs 11/28/24 11/28/24 1324 <Electronically signed by Suzanne Dawkins> Date _ Suzanne Dawkins Cosigner Signature (if applicable): Date CC: ~ Signed [facility] Work Phone: [phone]) 464-976204-09-2025 Discharge summary Author Lurdes Jimenez [facility] Note Date/Time November 28, 2024 11:[address] [facility] Medical Records Department [address] [place] [address] Discharge Summary 11/27/24 1143 MR#: [id number] Acct: [id number] Name: RAJWINDER WYLIE Rep #:[id number] : 1950 74 From: Lurdes ALBERT PCP: Dr. Davion Peoples MD Status :ADM TAI Location: [place] [address] Providers Date of Admission: 11/26/24 Date of Discharge: 11/28/24 Primary Care Physician: Dr. Davion Peoples MD Consultations 11/26/24 12:13 Consult: Hospitalist Routine Consulting Provider: Andrew Fox Reason for Consult: Post op right total shoulder medical management EMERGENT Consult: No MD Notified: Yes Date Notified: 11/26/24 Time Notified: 14:49 Method of Notification: Text Reason For Visit: RIGHT REVERSE TOTAL SHOULDER ARTHROPLASTY, ERAS Diagnosis Discharge Diagnosis (1) Status post reverse total arthroplasty of right shoulder: Status: Acute Code(s): Z96.611 - Presence of right artificial shoulder joint Plan Postop day 2 status post right reverse total shoulder arthroplasty 1. Will continue PT today. Nonweightbearing to right upper extremity. Elbow range of motion and pendulums only. Sling at all times 2. plan for discharge home today 3. Patient will follow up for post op appointment in 2 weeks in our office as previously scheduled 4. Patient has outpatient PT appointment in 2 weeks as previously scheduled 5. no new labs today. 6. DVT prophylaxis : Aspirin 81 mg twice daily x 2 weeks 7. Pain control: patient instructed to take tylenol 500mg 2 tablets TID. and oxycodone 1-2 tablets every 4-6 hours only as needed for pain control. doxycycline 100mg BID x 1 week 8. ok to remove post op dressing. post op day 7 Medications at Discharge Home Medications fluticasone 500 mcg-salmeterol 50 mcg/dose blistr powdr for inhalation (Advair Diskus) 1 puff inhalation BID shortness of breath 01/23/15 albuterol sulfate 90 mcg/actuation aerosol inhaler (ProAir HFA) 1 - 2 puff inhalation Q4H PRN Asthma 04/15/15 montelukast 10 mg tablet 10 mg PO QHS allergies 04/15/15 atorvastatin 20 mg tablet 20 mg PO QHS cholesterol 09/23/22 citalopram 40 mg tablet 30 mg PO QHS sleep 09/23/22 empagliflozin 10 mg tablet (Jardiance) 10 mg PO DAILY diabetes 09/23/22 hydrochlorothiazide 12.5 mg tablet 12.5 mg PO DAILY blood pressure 09/23/22 leflunomide 20 mg tablet 20 mg PO DAILY inflammation 09/23/22 levetiracetam 750 mg tablet,extended release 24 hr 750 mg PO QHS seizures 09/23/22 losartan 100 mg tablet 100 mg PO QHS blood pressure 09/23/22 metformin 500 mg tablet 500 mg PO DAILY diabetes 09/23/22 ondansetron HCl 4 mg tablet 4 mg PO Q8H PRN Nausea 09/23/22 potassium chloride 20 mEq tablet,extended release 20 meq PO DAILY potassium 09/23/22 quetiapine 100 mg tablet 200 mg PO QHS mood disorder 09/23/22 tiotropium bromide 2.5 mcg/actuation mist for inhalation (Spiriva Respimat) 2 puff inhalation DAILY shortness of breath 09/23/22 meclizine 25 mg tablet 25 mg PO BID dizziness 11/26/22 venlafaxine 150 mg capsule,extended release 24 hr 225 mg PO DAILY mood 12/15/22 aspirin 81 mg tablet,delayed release (Adult Low Dose Aspirin) 81 mg PO DAILY heart 01/06/23 Held on 11/28/24. Instructions: Resume on 12/13/24. guaifenesin 600 mg tablet, extended release 12 hr (Mucinex) 600 mg PO BID PRN congestion 04/29/23 prednisone 20 mg tablet 5 mg PO DAILY PRN pain 04/29/23 fluticasone propionate 50 mcg/actuation nasal spray,suspension 1 spray intranasal DAILY allergy symptoms 10/12/23 alprazolam 0.5 mg tablet 0.5 mg PO DAILY PRN Anxiety #10 tabs 10/18/23 alprazolam 1 mg tablet 1 mg PO QHS #20 tabs 10/18/23 pregabalin 75 mg capsule 75 mg PO BID 01/17/24 metoprolol tartrate 25 mg tablet 25 mg PO BID #180 tabs 05/30/24 furosemide 40 mg tablet 20 mg (1/2 x 40 mg) PO DAILY PRN edema #30 tabs 07/16/24 tirzepatide 5 mg/0.5 mL subcutaneous pen injector (Katarina) 5 mg subcut QWEEK 11/22/24 acetaminophen 500 mg tablet 1,000 mg (2 x 500 mg) PO Q8H #180 tabs 11/28/24 aspirin 81 mg tablet,delayed release 81 mg PO BIDCM 2 weeks #28 tabs 11/28/24 doxycycline monohydrate 100 mg capsule 100 mg PO BID 7 days #14 caps 11/28/24 oxycodone 5 mg tablet 5 - 10 mg (1 - 2 x 5 mg) PO Q4H PRN PRN Pain Score 4-10 7 days #30 tabs 11/28/24 sennosides 8.6 mg-docusate sodium 50 mg tablet (Stimulant Laxative Plus) 2 tab PO BID #14 tabs 11/28/24 Hospital Course Operations - (Right reverse total shoulder arthroplasty) Procedures None Summary of Care Provided Hospital Course: Patient is s/p right reverse total shoulder arthroplasty 11/26/[address] Rodriguez. Patient resting comfortably in bed. Rates pain 5/ 10 at rest. With movement 7/10. States taking Tylenol and oxycodone and ice help to relieve pain. Patient has been up with therapy. Sling in place. Nonweightbearing to right upper extremity.. Afebrile, no chest pain, shortness of breath, negative calf pain/ erythema, and no other signs of DVT. Patient has had uncomplicated postoperative course. Pain is well- controlled. She is stable for discharge home both medically and orthopedically. Will get home health and/or home PT. Physical Exam Narrative Patient resting comfortably in bed No signs of acute distress Satting well on room air Sling in place Right upper extremity limb is warm to touch, Sensation intact throughout entire right upper extremity, Motor intact to radial, median, ulnar nerve distribution Radial pulses bounding Dressing clear dry intact Calf nontender to palpation, no erythema, no edema. Negative Homans Weight / BMI Weight Weight: 101 kg Body Mass Index (BMI) 38.2 ABG / Lab / Microbiology Data 11/27/24 07:30 11/27/24 07:30 Laboratory: Laboratory Results - last 24 hr 11/27/24 16:25: POC Glucose 152 H 11/27/24 21:28: POC Glucose 151 H 11/28/24 06:04: POC Glucose 113 H 11/28/24 11:13: POC Glucose 149 H Microbiology: Microbiology 11/17/24 11:03 Swab (Method) Nasal Screen MRSA/MSSA - Final Radiography Diagnostic Testing: Radiology Impression Shoulder X-Ray 11/26/24 11:35 IMPRESSION: Limited intraoperative images from right shoulder replacement. Anatomic alignment. Reading Location: [id number] Shoulder X-Ray 11/26/24 12:43 IMPRESSION: Status post total shoulder replacement in anatomic position. Reading [facility] Instructions Discharge Diet: No restrictions Discharge Activity: Return to Normal Activity, No Restrictions (Nonweightbearingto the right upper extremity. Sling at all times.) and May Shower Weight Bearing Status: No weight bearing (Right upper extremity. Sling at all times) Call your doctor if your incision/area has: Continuous Slow Oozing, Sudden Increased Bleeding, Increased Pain/ Swelling, Increased Redness, Foul Smelling Discharge and Swelling at the incision site Call your doctor if you observe: Fever of 101 or Higher, Inability to have a bowel movement, Shortness of breath, Chest pain, Increased palpitations (irregular heartbeat), Calf discomfort and Uncontrolled pain Remove Dressing in: 1 week Cleanse incision/area with: Soap & Water and Keep Dressing Clean & Dry DC O2, CPAP, BIPAP Needs Home O2 Discharge instructions: No DC home with Oxygen: No When: In [address] [facility] as previously scheduled. Meaningful Use Info Meaningful Use Meaningful Use Diagnoses (Choose all that apply): None applicable Ischemic Stroke Statin Dosing Therapy Reference: STATIN DOSE THERAPY REFERENCE: * Patients > 75 years receive moderate or high dose statin therapy. * Patients 75 years or YOUNGER should receive HIGH intensity statin dose unless contraindicated. You will be required to document reason for non-treatment if statin daily dose does not meet guidelines. HIGH DOSE STATIN THERAPY DAILY Atorvastatin > than or = to 40 mg Rosuvastatin > than or = to 20 mg Amlodipine + Atorvastatin > than or = to 2.5/40 mg Ezetimibe + Simvastatin 10/80 mg Simvastatin 80mg Discharge Plan Admission Admit Date/Time: 11/26/24 12:13 Attending Provider: Andrew Rodriguez Primary Care Provider: Davion Peoples Consulting Providers: Andrew Fox Kathryn Discharge Orders/Prescriptions Prescriptions: New acetaminophen 500 mg Tablet 1,000 mg PO Q8H Qty: 180 0RF aspirin 81 mg Tablet,Delayed Release (Dr/Ec) 81 mg PO BIDCM 14 Days Qty: 28 0RF oxycodone 5 mg Tablet 5 - 10 mg PO Q4H PRN PRN (Reason: Pain Score 4-10) 7 Days Qty: 30 0RF sennosides-docusate sodium [Stimulant Laxative Plus] 8.6-50 mg Tablet 2 tab PO BID Qty: 14 0RF doxycycline monohydrate 100 mg capsule 100 mg PO BID 7 Days Qty: 14 0RF Continued meclizine 25 mg tablet 25 mg PO BID hydrochlorothiazide 12.5 mg tablet 12.5 mg PO DAILY citalopram 40 mg tablet 30 mg PO QHS levetiracetam 750 mg tablet extended release 24 hr 750 mg PO QHS ondansetron HCl 4 mg tablet 4 mg PO Q8H PRN (Reason: Nausea) atorvastatin 20 mg tablet 20 mg PO QHS Spiriva Respimat 2.5 mcg/actuation mist 2 puff inhalation DAILY potassium chloride 20 mEq tablet extended release 20 meq PO DAILY metformin 500 mg tablet 500 mg PO DAILY Jardiance 10 mg tablet 10 mg PO DAILY Patient Comments: pt states she only takes as neeeded leflunomide 20 mg tablet 20 mg PO DAILY guaifenesin [Mucinex] 600 mg tablet extended release 12hr 600 mg PO BID PRN (Reason: congestion) venlafaxine 150 mg capsule,extended release 24hr 225 mg PO DAILY prednisone 20 mg tablet 5 mg PO DAILY PRN (Reason: pain) Rx Instructions: x5days fluticasone propion-salmeterol [Advair Diskus] 1 EACH blister with device 1 puff inhalation BID Patient Comments: RINSE AND GARGLE MOUTH WITH WATER AFTER EACH USE. montelukast 10 MG tablet 10 mg PO QHS albuterol sulfate [ProAir HFA] 1 PUFF inhaler 1 - 2 puff inhalation Q4H PRN (Reason: Asthma) losartan 100 mg tablet 100 mg PO QHS quetiapine 100 mg tablet 200 mg PO QHS Patient Comments: pt states she takes 1 at night if needed fluticasone propionate 50 mcg/actuation spray,suspension 1 spray intranasal DAILY Rx Instructions: administer into each nostril pregabalin 75 mg capsule 75 mg PO BID Mounjaro 5 mg/0.5 mL pen injector 5 mg SUBCUT QWEEK Patient Comments: LAST DOSE 11/17/24 alprazolam 0.5 mg tablet 0.5 mg PO DAILY PRN (Reason: Anxiety) Qty: 10 0RF alprazolam 1 mg tablet 1 mg PO QHS Qty: 20 0RF metoprolol tartrate 25 mg tablet 25 mg PO BID Qty: 180 3RF furosemide 40 mg tablet 20 mg PO DAILY PRN (Reason: edema) Qty: 30 11RF Held aspirin [Adult Low Dose Aspirin] 81 mg tablet,delayed release (DR/EC) 81 mg PO DAILY Hold Instructions: Resume on 12/13/24. Patient Comments: ASK DR. RODRIGUEZ RE:STOPPING Referrals / Follow Up: Davion Peoples MD [Primary Care Provider] - Disposition Disposition (needs filled in before D/C Order can be placed): Home, Self Care 11/28/24 1153 <Electronically signed by Lurdes ALBERT> Cosigner Signature (if applicable): CC: Dr. Davion Peoples MD; ROOSEVELT Mcintosh~ Signed [facility] Work Phone: 1(699) 579-625904-09-2025 Consult note [facility] Medical Records Department [address] [place] [id number] Counseling Note - Pharmacy 11/28/24 1319 MR#: [id number] Acct: [id number] Name: RAJWINDER WYLIE Rep #:[id number] : 1950 74 From: Suzanne Dawkins PCP: Dr. Davion Peoples MD Status :ADM TAI Y Location: [place] [address] Pharmacy [facility] Pharmacy Service has performed discharge medication reconciliation and counseling for this patient. 1. ACETAMINOPHEN 1000MG PO Q8 2. DOXYCYCLINE 100MG PO BID X 7 DAYS 3. OXYCODONE 5-10MG PO Q4H PRN PAIN 4. SENNA/DOCUSATE 2T PO BID 5. ASPIRIN 81MG PO BID X 2 WEEKS, THEN RESUME DAILY 12/13 The patient's discharge medication list was reviewed for discrepancies and discrepancies were resolved. The patient was counseled on the following discharge medications and changes in medications for homegoing were reviewed. The Reason for Use, instructions for use, and potential side effects were reviewed for all new medications. The patient's questions regarding all of their medications were answered. The patient was able to verbally demonstrate an understanding of their dischargemedications. Medications at Discharge Home Medications fluticasone 500 mcg-salmeterol 50 mcg/dose blistr powdr for inhalation (Advair Diskus) 1 puff inhalation BID shortness of breath 01/23/15 albuterol sulfate 90 mcg/actuation aerosol inhaler (ProAir HFA) 1 - 2 puff inhalation Q4H PRN Asthma 04/15/15 montelukast 10 mg tablet 10 mg PO QHS allergies 04/15/15 atorvastatin 20 mg tablet 20 mg PO QHS cholesterol 09/23/22 citalopram 40 mg tablet 30 mg PO QHS sleep 09/23/22 empagliflozin 10 mg tablet (Jardiance) 10 mg PO DAILY diabetes 09/23/22 hydrochlorothiazide 12.5 mg tablet 12.5 mg PO DAILY blood pressure 09/23/22 leflunomide 20 mg tablet 20 mg PO DAILY inflammation 09/23/22 levetiracetam 750 mg tablet,extended release 24 hr 750 mg PO QHS seizures 09/23/22 losartan 100 mg tablet 100 mg PO QHS blood pressure 09/23/22 metformin 500 mg tablet 500 mg PO DAILY diabetes 09/23/22 ondansetron HCl 4 mg tablet 4 mg PO Q8H PRN Nausea 09/23/22 potassium chloride 20 mEq tablet,extended release 20 meq PO DAILY potassium 09/23/22 quetiapine 100 mg tablet 200 mg PO QHS mood disorder 09/23/22 tiotropium bromide 2.5 mcg/actuation mist for inhalation (Spiriva Respimat) 2 puff inhalation DAILYshortness of breath 09/23/22 meclizine 25 mg tablet 25 mg PO BID dizziness 11/26/22 venlafaxine 150 mg capsule,extended release 24 hr 225 mg PO DAILY mood 12/15/22 aspirin 81 mg tablet,delayed release (Adult Low Dose Aspirin) 81 mg PO DAILY heart 01/06/23 Held on 11/28/24. Instructions: Resume on 12/13/24. guaifenesin 600 mg tablet, extended release 12 hr (Mucinex) 600 mg PO BID PRN congestion 04/29/23 prednisone 20 mg tablet 5 mg PO DAILY PRN pain 04/29/23 fluticasone propionate 50 mcg/actuation nasal spray,suspension 1 spray intranasal DAILY allergy symptoms 10/12/23 alprazolam 0.5 mg tablet 0.5 mg PO DAILY PRN Anxiety #10 tabs 10/18/23 alprazolam 1 mg tablet 1 mg PO QHS #20 tabs 10/18/23 pregabalin 75 mg capsule 75 mg PO BID 01/17/24 metoprolol tartrate 25 mg tablet 25 mg PO BID #180 tabs 05/30/24 furosemide 40 mg tablet 20 mg (1/2 x 40 mg) PO DAILY PRN edema #30 tabs 07/16/24 tirzepatide 5 mg/0.5 mL subcutaneous pen injector (Mounjaro) 5 mg subcut QWEEK 11/22/24 acetaminophen 500 mg tablet 1,000 mg (2 x 500 mg) PO Q8H #180 tabs 11/28/24 aspirin 81 mg tablet,delayed release 81 mg PO BIDCM 2 weeks #28 tabs 11/28/24 doxycycline monohydrate 100 mg capsule 100 mg PO BID 7 days #14 caps 11/28/24 oxycodone 5 mg tablet 5 - 10 mg (1 - 2 x 5 mg) PO Q4H PRN PRN Pain Score 4-10 7 days #30 tabs 11/28/24 sennosides 8.6 mg-docusate sodium 50 mg tablet (Stimulant Laxative Plus) 2 tab PO BID #14 tabs 11/28/24 11/28/24 1324 Date _ Suzanne Schultz Signature (if applicable): Date CC: ~ Signed [facility]04-09-2025 Discharge summary [facility] Medical Records Department [address] [place] [address] Discharge Summary 11/27/24 1143 MR#: [id number] Acct: [id number] Name: RAJWINDER WYLIE Rep #:[id number] : 1950 74 From: Lurdes ALBERT PCP: Dr. Davion Peoples MD Status :ADM TAI Location: [place] [id number] Providers Date of Admission: 11/26/24 Date of Discharge: 11/28/24 Primary Care Physician: Dr. Davion Peoples MD Consultations 11/26/24 12:13 Consult: Hospitalist Routine Consulting Provider: Andrew Fox Reason for Consult: Post op right total shoulder medical management EMERGENT Consult: No MD Notified: Yes Date Notified: 11/26/24 Time Notified: 14:49 Method of Notification: Text Reason For Visit: RIGHT REVERSE TOTAL SHOULDER ARTHROPLASTY, ERAS Diagnosis Discharge Diagnosis (1) Status post reverse total arthroplasty of right shoulder: Status: Acute Code(s): Z96.611 - Presence of right artificial shoulder joint Plan Postop day 2 status post right reverse total shoulder arthroplasty 1. Will continue PT today. Nonweightbearing to right upper extremity. Elbow range of motion and pendulums only. Sling at all times 2. plan for discharge home today 3. Patient will follow up for post op appointment in 2 weeks in our office as previously scheduled 4. Patient has outpatient PT appointment in 2 weeks as previously scheduled 5. no new labs today. 6. DVT prophylaxis : Aspirin 81 mg twice daily x 2 weeks 7. Pain control: patient instructed to take tylenol 500mg 2 tablets TID. and oxycodone 1-2 tablets every 4-6 hours only as needed for pain control. doxycycline 100mg BID x 1 week 8. ok to remove post op dressing. post op day 7 Medications at Discharge Home Medications fluticasone 500 mcg-salmeterol 50 mcg/dose blistr powdr for inhalation (Advair Diskus) 1 puff inhalation BID shortness of breath 01/23/15 albuterol sulfate 90 mcg/actuation aerosol inhaler (ProAir HFA) 1 - 2 puff inhalation Q4H PRN Asthma 04/15/15 montelukast 10 mg tablet 10 mg PO QHS allergies 04/15/15 atorvastatin 20 mg tablet 20 mg PO QHS cholesterol 09/23/22 citalopram 40 mg tablet 30 mg PO QHS sleep 09/23/22 empagliflozin 10 mg tablet (Jardiance) 10 mg PO DAILY diabetes 09/23/22 hydrochlorothiazide 12.5 mg tablet 12.5 mg PO DAILY blood pressure 09/23/22 leflunomide 20 mg tablet 20 mg PO DAILY inflammation 09/23/22 levetiracetam 750 mg tablet,extended release 24 hr 750 mg PO QHS seizures 09/23/22 losartan 100 mg tablet 100 mg PO QHS blood pressure 09/23/22 metformin 500 mg tablet 500 mg PO DAILY diabetes 09/23/22 ondansetron HCl 4 mg tablet 4 mg PO Q8H PRN Nausea 09/23/22 potassium chloride 20 mEq tablet,extended release 20 meq PO DAILY potassium 09/23/22 quetiapine 100 mg tablet 200 mg PO QHS mood disorder 09/23/22 tiotropium bromide 2.5 mcg/actuation mist for inhalation (Spiriva Respimat) 2 puff inhalation DAILYshortness of breath 09/23/22 meclizine 25 mg tablet 25 mg PO BID dizziness 11/26/22 venlafaxine 150 mg capsule,extended release 24 hr 225 mg PO DAILY mood 12/15/22 aspirin 81 mg tablet,delayed release (Adult Low Dose Aspirin) 81 mg PO DAILY heart 01/06/23 Held on 11/28/24. Instructions: Resume on 12/13/24. guaifenesin 600 mg tablet, extended release 12 hr (Mucinex) 600 mg PO BID PRN congestion 04/29/23 prednisone 20 mg tablet 5 mg PO DAILY PRN pain 04/29/23 fluticasone propionate 50 mcg/actuation nasal spray,suspension 1 spray intranasal DAILY allergy symptoms 10/12/23 alprazolam 0.5 mg tablet 0.5 mg PO DAILY PRN Anxiety #10 tabs 10/18/23 alprazolam 1 mg tablet 1 mg PO QHS #20 tabs 10/18/23 pregabalin 75 mg capsule 75 mg PO BID 01/17/24 metoprolol tartrate 25 mg tablet 25 mg PO BID #180 tabs 05/30/24 furosemide 40 mg tablet 20 mg (1/2 x 40 mg) PO DAILY PRN edema #30 tabs 07/16/24 tirzepatide 5 mg/0.5 mL subcutaneous pen injector (Mounjaro) 5 mg subcut QWEEK 11/22/24 acetaminophen 500 mg tablet 1,000 mg (2 x 500 mg) PO Q8H #180 tabs 11/28/24 aspirin 81 mg tablet,delayed release 81 mg PO BIDCM 2 weeks #28 tabs 11/28/24 doxycycline monohydrate 100 mg capsule 100 mg PO BID 7 days #14 caps 11/28/24 oxycodone 5 mg tablet 5 - 10 mg (1 - 2 x 5 mg) PO Q4H PRN PRN Pain Score 4-10 7 days #30 tabs 11/28/24 sennosides 8.6 mg-docusate sodium 50 mg tablet (Stimulant Laxative Plus) 2 tab PO BID #14 tabs 11/28/24 Hospital Course Operations - (Right reverse total shoulder arthroplasty) Procedures None Summary of Care Provided Hospital Course: Patient is s/p right reverse total shoulder arthroplasty 11/26/[address] Rodriguez. Patient restingcomfortably in bed. Rates pain 5/ 10 at rest. With movement 7/10. States taking Tylenol and oxycodone and ice help to relieve pain. Patient has been up with therapy. Sling in place. Nonweightbearing to right upper extremity.. Afebrile, no chest pain, shortness of breath, negative calf pain/ erythema, and no other signs of DVT. Patient has had uncomplicated postoperative course. Pain is well-controlled. She is stable for discharge home both medically and orthopedically. Will get home health and/or home PT. Physical Exam Narrative Patient resting comfortably in bed No signs of acute distress Satting well on room air Sling in place Right upper extremity limb is warm to touch, Sensation intact throughout entire right upper extremity, Motor intact to radial, median, ulnar nerve distribution Radial pulses bounding Dressing clear dry intact Calf nontender to palpation, no erythema, no edema. Negative Homans Weight / BMI Weight Weight: 101 kg Body Mass Index (BMI) 38.2 ABG / Lab / Microbiology Data 11/27/24 07:30 11/27/24 07:30 Laboratory: Laboratory Results - last 24 hr 11/27/24 16:25: POC Glucose 152 H 11/27/24 21:28: POC Glucose 151 H 11/28/24 06:04: POC Glucose 113 H 11/28/24 11:13: POC Glucose 149 H Microbiology: Microbiology 11/17/24 11:03 Swab (Method) Nasal Screen MRSA/MSSA - Final Radiography Diagnostic Testing: Radiology Impression Shoulder X-Ray 11/26/24 11:35 IMPRESSION: Limited intraoperative images from right shoulder replacement. Anatomic alignment. Reading Location: [id number] Shoulder X-Ray 11/26/24 12:43 IMPRESSION: Status post total shoulder replacement in anatomic position. Reading [facility] Instructions Discharge Diet: No restrictions Discharge Activity: Return to Normal Activity, No Restrictions (Nonweightbearingto the right upper extremity. Sling at all times.) and May Shower Weight Bearing Status: No weight bearing (Right upper extremity. Sling at all times) Call your doctor if your incision/area has: Continuous Slow Oozing, Sudden Increased Bleeding, Increased Pain/ Swelling, Increased Redness, Foul Smelling Discharge and Swelling at the incision site Call your doctor if you observe: Fever of 101 or Higher, Inability to have a bowel movement, Shortness of breath, Chest pain, Increased palpitations (irregular heartbeat), Calf discomfort and Uncontrolled pain Remove Dressing in: 1 week Cleanse incision/area with: Soap & Water and Keep Dressing Clean & Dry DC O2, CPAP, BIPAP Needs Home O2 Discharge instructions: No DC home with Oxygen: No When: In [address] [facility] as previously scheduled. Meaningful Use Info Meaningful Use Meaningful Use Diagnoses (Choose all that apply): None applicable Ischemic Stroke Statin Dosing Therapy Reference: STATIN DOSE THERAPY REFERENCE: * Patients > 75 years receive moderate or high dose statin therapy. * Patients 75 years or YOUNGER should receive HIGH intensity statin dose unless contraindicated. You will be required to document reason for non-treatment if statin daily dose does not meet guidelines. HIGH DOSE STATIN THERAPY DAILY Atorvastatin > than or = to 40 mg Rosuvastatin > than or = to 20 mg Amlodipine + Atorvastatin > than or = to 2.5/40 mg Ezetimibe + Simvastatin 10/80 mg Simvastatin 80mg Discharge Plan Admission Admit Date/Time: 11/26/24 12:13 Attending Provider: Andrew Rodriguez Primary Care Provider: Davion Peoples Consulting Providers: Andrew Fox; Danyelle Perez Discharge Orders/Prescriptions Prescriptions: New acetaminophen 500 mg Tablet 1,000 mg PO Q8H Qty: 180 0RF aspirin 81 mg Tablet,Delayed Release (Dr/Ec) 81 mg PO BIDCM 14 Days Qty: 28 0RF oxycodone 5 mg Tablet 5 - 10 mg PO Q4H PRN PRN (Reason: Pain Score 4-10) 7 Days Qty: 30 0RF sennosides-docusate sodium [Stimulant Laxative Plus] 8.6-50 mg Tablet 2 tab PO BID Qty: 14 0RF doxycycline monohydrate 100 mg capsule 100 mg PO BID 7 Days Qty: 14 0RF Continued meclizine 25 mg tablet 25 mg PO BID hydrochlorothiazide 12.5 mg tablet 12.5 mg PO DAILY citalopram 40 mg tablet 30 mg PO QHS levetiracetam 750 mg tablet extended release 24 hr 750 mg PO QHS ondansetron HCl 4 mg tablet 4 mg PO Q8H PRN (Reason: Nausea) atorvastatin 20 mg tablet 20 mg PO QHS Spiriva Respimat 2.5 mcg/actuation mist 2 puff inhalation DAILY potassium chloride 20 mEq tablet extended release 20 meq PO DAILY metformin 500 mg tablet 500 mg PO DAILY Jardiance 10 mg tablet 10 mg PO DAILY Patient Comments: pt states she only takes as neeeded leflunomide 20 mg tablet 20 mg PO DAILY guaifenesin [Mucinex] 600 mg tablet extended release 12hr 600 mg PO BID PRN (Reason: congestion) venlafaxine 150 mg capsule,extended release 24hr 225 mg PO DAILY prednisone 20 mg tablet 5 mg PO DAILY PRN (Reason: pain) Rx Instructions: x5days fluticasone propion-salmeterol [Advair Diskus] 1 EACH blister with device 1 puff inhalation BID Patient Comments: RINSE AND GARGLE MOUTH WITH WATER AFTER EACH USE. montelukast 10 MG tablet 10 mg PO QHS albuterol sulfate [ProAir HFA] 1 PUFF inhaler 1 - 2 puff inhalation Q4H PRN (Reason: Asthma) losartan 100 mg tablet 100 mg PO QHS quetiapine 100 mg tablet 200 mg PO QHS Patient Comments: pt states she takes 1 at night if needed fluticasone propionate 50 mcg/actuation spray,suspension 1 spray intranasal DAILY Rx Instructions: administer into each nostril pregabalin 75 mg capsule 75 mg PO BID Mounjaro 5 mg/0.5 mL pen injector 5 mg SUBCUT QWEEK Patient Comments: LAST DOSE 11/17/24 alprazolam 0.5 mg tablet 0.5 mg PO DAILY PRN (Reason: Anxiety) Qty: 10 0RF alprazolam 1 mg tablet 1 mg PO QHS Qty: 20 0RF metoprolol tartrate 25 mg tablet 25 mg PO BID Qty: 180 3RF furosemide 40 mg tablet 20 mg PO DAILY PRN (Reason: edema) Qty: 30 11RF Held aspirin [Adult Low Dose Aspirin] 81 mg tablet,delayed release (DR/EC) 81 mg PO DAILY Hold Instructions: Resume on 12/13/24. Patient Comments: ASK DR. RODRIGUEZ RE:STOPPING Referrals / Follow Up: Davion Peoples MD [Primary Care Provider] - Disposition Disposition (needs filled in before D/C Order can be placed): Home, Self Care 11/28/24 1153 Cosigner Signature (if applicable): CC: Dr. Davion Peoples MD; ROOSEVELT Mcintosh~ Signed [facility]04-08-2025 Progress note Author Danyelle Perez [facility] Note Date/Time November 27, 2024 3:35 pm [facility] Medical Records Department [address] [place] [address] Progress Note - Hospitalist 11/27/24 1534 MR#: [id number] Acct: [id number] Name: RAJWINDER WYLIE Rep #:[id number] : 1950 74 From: Danyelle Perez DO PCP: Dr. Davion Peoples MD Status :ADM TAI Location: [facility]3 [id number] Hospitalist Note Patient is doing well clinically. Her only issue is pain control. Labs are stable and vital signs are good. I will plan to sign off. Case was discussed with Dr. Rodriguez and he plans on discharging her tomorrow after pain control is a little bit improved. I did request that he reconsult if needed. Will sign off and okay for discharge home from medical standpoint. 11/27/241534 <Electronically signed by Danyelle Perez DO> Cosigner Signature (if applicable): CC: ~ Signed [facility] Work Phone: 1(707) 407-920404-08-2025 Progress note [facility] Medical Records Department [address] [place] [address] Progress Note - Hospitalist 11/27/24 1534 MR#: [id number] Acct: [id number] Name: RAJWINDER WYLIE Rep #:[id number] : 1950 74 From: Danyelle Perez DO PCP: Dr. Davion Peoples MD Status :ADM TAI Location: MS3 SV126-9 Hospitalist Note Patient is doing well clinically. Her only issue is pain control. Labs are stable and vital signs are good. I will plan to sign off. Case was discussed with Dr. Rodriguez and he plans on discharging her tomorrow after pain control is a little bit improved. I did request that he reconsult if needed. Will sign off and okay for discharge home from medical standpoint. 11/27/241534 Cosigner Signature (if applicable): CC: ~ Signed [facility]04-08-2025 Progress note Author Lurdes iJmenez [facility] Note Date/Time November 27, 2024 12:1 8pm [facility] Medical Records Department [address] [place] [address] Progress Note - Orthopedic 11/27/24 1212 MR#: [id number] Acct: [id number] Name: RAJWINDER WYLIE Rep #:[id number] : 1950 74 From: Lurdes ALBERT PCP: Dr. Davion Peoples MD Status :ADM TAI Location: MS3 [id number] Subjective Subjective Patient is s/p right reverse total shoulder arthroplasty 11/26/[address] Rodriguez. Patient resting comfortably in bed. Rates pain 5/ 10 at rest. With movement 7/10. States taking Tylenol and oxycodone and ice help to relieve pain. Patient has been up with therapy. Sling in place. Nonweightbearing to right upper extremity.. Afebrile, no chest pain, shortness of breath, negative calf pain/ erythema, and no other signs of DVT. Objective Data Objective Data Vital Signs: Vital Signs Temp Pulse Resp BP Pulse Ox O2 Del Method O2 Flow Rate 97.8 F 71 16 144/75 H 95 Room Air 4 11/27/24 03:08 11/27/24 11:01 11/27/24 11:01 11/27/24 03:08 11/27/24 11:01 11/27/24 11:01 11/27/24 10:52 Oxygen Flow Rate (L/min) 4 Oxygen Delivery Method Room Air Weight: 101 kg Body Mass Index (BMI) 38.2 Intake & Output: Intake and Output for Last 24 Hours 11/25/24 11/26/24 11/27/24 23:59 23:59 23:59 Intake Total 3715.00 / 3715.00 550 / 550 Balance 3715.00 / 3715.00 550 / 550 Lab / Micro Data 11/27/24 07:30 11/27/24 07:30 Labs: Laboratory Results - last 24 hr 11/26/24 21:22: POC Glucose 178 H 11/27/24 06:54: POC Glucose 126 H 11/27/24 07:30: WBC 9.7, RBC 4.62, Hgb 12.1, Hct 39.0, MCV 84.4, MCH 26.2 L, MCHC 31.0 L, RDW Std Deviation 45.9 H, RDW Coeff of Anali 15.2 H, Plt Count 167, MPV 10.3, Sodium 137, Potassium 4.5, Chloride 106, Carbon Dioxide 18.6 L, Anion Gap 13, BUN 20 H, Creatinine 1.05, Estim Creat Clear Calc 55.16, Est GFR (MDRD) Non-Af 56 L, BUN/Creatinine Ratio 19.1, Glucose 121 H, Calcium 8.4 11/27/24 11:23: POC Glucose 152 H Micro: Microbiology 11/17/24 11:03 Swab (Method) Nasal Screen MRSA/MSSA - Final Radiography Diagnostic Testing: Radiology Impression Shoulder X-Ray 11/26/24 11:35 IMPRESSION: Limited intraoperative images from right shoulder replacement. Anatomic alignment. Reading Location: [id number] Shoulder X-Ray 11/26/24 12:43 IMPRESSION: Status post total shoulder replacement in anatomic position. Reading Location: [facility] Physical Exam Narrative Patient resting comfortably in bed No signs of acute distress Satting well on room air Sling in place Right upper extremity limb is warm to touch, Sensation intact throughout entire right upper extremity, Motor intact to radial, median, ulnar nerve distribution Radial pulses bounding Dressing clear dry intact Calf nontender to palpation, no erythema, no edema. Negative Homans Assessment & Plan Assessment/Plan (1) Status post reverse total arthroplasty of right shoulder: PLAN: Plan Postop day 1 status post right reverse total shoulder arthroplasty 1. Will continue PT today. Nonweightbearing to right upper extremity. Elbow range of motion and pendulums only. Sling at all times 2. plan for discharge home with likely home health and/or home PT. Patient would benefit from another night stay due to pain control. 3. Patient will follow up for post op appointment in 2 weeks in our office as previously scheduled 4. Patient has outpatient PT appointment in 2 weeks as previously scheduled 5. WBC 9.7 no acute reactive leukocytosis: 6. H/H 12.1/39.0: no post operavtive anemia 7. DVT prophylaxis : Aspirin 81 mg twice daily x 2 weeks 8. Pain control: patient instructed to take tylenol 500mg 2 tablets TID. and oxycodone 1-2 tablets every 4-6 hours only as needed for pain control. 10. ok to remove post op dressing. post op day 7 11/27/24 1218 <Electronically signed by Lurdes ALBERT> Cosigner Signature (if applicable): CC: ~ Signed [facility] Work Phone: 1(820) 366-138104-08-2025 Progress note [facility] Medical Records Department [address] [place] [address] Progress Note - Orthopedic 11/27/24 1212 MR#: [id number] Acct: [id number] Name: RAJWINDER WYLIE Rep #:[id number] : 1950 74 From: Lurdes ALBERT PCP: Dr. Davion Peoples MD Status :ADM TAI Location: MS3 [id number] Subjective Subjective Patient is s/p right reverse total shoulder arthroplasty 11/26/[address] Rodriguez. Patient restingcomfortably in bed. Rates pain 5/ 10 at rest. With movement 7/10. States taking Tylenol and oxycodone and ice help to relieve pain. Patient has been up with therapy. Sling in place. Nonweightbearing to right upper extremity.. Afebrile, no chest pain, shortness of breath, negative calf pain/ erythema, and no other signs of DVT. Objective Data Objective Data Vital Signs: Vital Signs Temp Pulse Resp BP Pulse Ox O2 Del Method O2 Flow Rate 97.8 F 71 16 144/75 H 95 Room Air 4 11/27/24 03:08 11/27/24 11:01 11/27/24 11:01 11/27/24 03:08 11/27/24 11:01 11/27/24 11:01 11/27/24 10:52 Oxygen Flow Rate (L/min) 4 Oxygen Delivery Method Room Air Weight: 101 kg Body Mass Index (BMI) 38.2 Intake & Output: Intake and Output for Last 24 Hours 11/25/24 11/26/24 11/27/24 23:59 23:59 23:59 Intake Total 3715.00 / 3715.00 550 / 550 Balance 3715.00 / 3715.00 550 / 550 Lab / Micro Data 11/27/24 07:30 11/27/24 07:30 Labs: Laboratory Results - last 24 hr 11/26/24 21:22: POC Glucose 178 H 11/27/24 06:54: POC Glucose 126 H 11/27/24 07:30: WBC 9.7, RBC 4.62, Hgb 12.1, Hct 39.0, MCV 84.4, MCH 26.2 L, MCHC 31.0 L, RDW Std Deviation 45.9 H, RDW Coeff of Anali 15.2 H, Plt Count 167, MPV 10.3, Sodium 137, Potassium 4.5, Chloride 106, Carbon Dioxide 18.6 L, Anion Gap 13, BUN 20 H, Creatinine 1.05, Estim Creat Clear Calc 55.16, Est GFR (MDRD) Non-Af 56 L, BUN/Creatinine Ratio 19.1, Glucose 121 H, Calcium 8.4 11/27/24 11:23: POC Glucose 152 H Micro: Microbiology 11/17/24 11:03 Swab (Method) Nasal Screen MRSA/MSSA - Final Radiography Diagnostic Testing: Radiology Impression Shoulder X-Ray 11/26/24 11:35 IMPRESSION: Limited intraoperative images from right shoulder replacement. Anatomic alignment. Reading Location: [facility] Shoulder X-Ray 11/26/24 12:43 IMPRESSION: Status post total shoulder replacement in anatomic position. Reading Location: [facility] Physical Exam Narrative Patient resting comfortably in bed No signs of acute distress Satting well on room air Sling in place Right upper extremity limb is warm to touch, Sensation intact throughout entire right upper extremity, Motor intact to radial, median, ulnar nerve distribution Radial pulses bounding Dressing clear dry intact Calf nontender to palpation, no erythema, no edema. Negative Homans Assessment & Plan Assessment/Plan (1) Status post reverse total arthroplasty of right shoulder: PLAN: Plan Postop day 1 status post right reverse total shoulder arthroplasty 1. Will continue PT today. Nonweightbearing to right upper extremity. Elbow range of motion and pendulums only. Sling at all times 2. plan for discharge home with likely home health and/or home PT. Patient would benefit from another night stay due to pain control. 3. Patient will follow up for post op appointment in 2 weeks in our office as previously scheduled 4. Patient has outpatient PT appointment in 2 weeks as previously scheduled 5. WBC 9.7 no acute reactive leukocytosis: 6. H/H 12.1/39.0: no post operavtive anemia 7. DVT prophylaxis : Aspirin 81 mg twice daily x 2 weeks 8. Pain control: patient instructed to take tylenol 500mg 2 tablets TID. and oxycodone 1-2 tablets every 4-6 hours only as needed for pain control. 10. ok to remove post op dressing. post op day 7 11/27/24 1218 Cosigner Signature (if applicable): CC: ~ Signed [facility]04-08-2025 [facility] Medical Records Department [address] [place] [address] [place] [address] Discharge Summary 11/27/24 1143 MR#: [id number] Acct: [id number] Name: RAJWINDER WYLIE Rep #: [id number] : 1950 74 From: Lurdes ALBERT PCP: Dr. Davion Peoples MD Status:ADM TAI Location: KS3 [id number] Providers Date of Admission: 11/26/24 Date of Discharge: 11/28/24 Primary Care Physician: Dr. Davion Peoples MD Consultations 11/26/24 12:13 Consult: Hospitalist Routine Consulting Provider: Andrew Fox Reason for Consult: Post op right total shoulder medical management EMERGENT Consult: No MD Notified: Yes Date Notified: 11/26/24 Time Notified: 14:49 Method of Notification: Text Reason For Visit: RIGHT REVERSE TOTAL SHOULDER ARTHROPLASTY, ERAS Diagnosis Discharge Diagnosis (1) Status post reverse total arthroplasty of right shoulder: Status: Acute Code(s): Z96.611 - Presence of right artificial shoulder joint Plan Postop day 2 status post right reverse total shoulder arthroplasty 1. Will continue PT today. Nonweightbearing to right upper extremity. Elbow range of motion and pendulums only. Sling at all times 2. plan for discharge home today 3. Patient will follow up for post op appointment in 2 weeks in our office as previously scheduled 4. Patient has outpatient PT appointment in 2 weeks as previously scheduled 5. no new labs today. 6. DVT prophylaxis : Aspirin 81 mg twice daily x 2 weeks 7. Pain control: patient instructed to take tylenol 500mg 2 tablets TID. and oxycodone 1-2 tablets every 4-6 hours only as needed for pain control. doxycycline 100mg BID x 1 week 8. ok to remove post op dressing. post op day 7 Medications at Discharge Home Medications fluticasone 500 mcg-salmeterol 50 mcg/dose blistr powdr for inhalation (Advair Diskus) 1 puff inhalation BID shortness of breath 01/23/15 albuterol sulfate 90 mcg/actuation aerosol inhaler (ProAir HFA) 1 - 2 puff inhalation Q4H PRN Asthma 04/15/15 montelukast 10 mg tablet 10 mg PO QHS allergies 04/15/15 atorvastatin 20 mg tablet 20 mg PO QHS cholesterol 09/23/22 citalopram 40 mg tablet 30 mg PO QHS sleep 09/23/22 empagliflozin 10 mg tablet (Jardiance) 10 mg PO DAILY diabetes 09/23/22 hydrochlorothiazide 12.5 mg tablet 12.5 mg PO DAILY blood pressure 09/23/22 leflunomide 20 mg tablet 20 mg PO DAILY inflammation 09/23/22 levetiracetam 750 mg tablet,extended release 24 hr 750 mg PO QHS seizures 09/23/22 losartan 100 mg tablet 100 mg PO QHS blood pressure 09/23/22 metformin 500 mg tablet 500 mg PO DAILY diabetes 09/23/22 ondansetron HCl 4 mg tablet 4 mg PO Q8H PRN Nausea 09/23/22 potassium chloride 20 mEq tablet,extended release 20 meq PO DAILY potassium 09/23/22 quetiapine 100 mg tablet 200 mg PO QHS mood disorder 09/23/22 tiotropium bromide 2.5 mcg/actuation mist for inhalation (Spiriva Respimat) 2 puff inhalation DAILY shortness of breath 09/23/22 meclizine 25 mg tablet 25 mg PO BID dizziness 11/26/22 venlafaxine 150 mg capsule,extended release 24 hr 225 mg PO DAILY mood 12/15/22 aspirin 81 mg tablet,delayed release (Adult Low Dose Aspirin) 81 mg PO DAILY heart 01/06/23 Held on 11/28/24. Instructions: Resume on 12/13/24. guaifenesin 600 mg tablet, extended release 12 hr (Mucinex) 600 mg PO BID PRN congestion 04/29/23 prednisone 20 mg tablet 5 mg PO DAILY PRN pain 04/29/23 fluticasone propionate 50 mcg/actuation nasal spray,suspension 1 spray intranasal DAILY allergy symptoms 10/12/23 alprazolam 0.5 mg tablet 0.5 mg PO DAILY PRN Anxiety #10 tabs 10/18/23 alprazolam 1 mg tablet 1 mg PO QHS #20 tabs 10/18/23 pregabalin 75 mg capsule 75 mg PO BID 01/17/24 metoprolol tartrate 25 mg tablet 25 mg PO BID #180 tabs 05/30/24 furosemide 40 mg tablet 20 mg (1/2 x 40 mg) PO DAILY PRN edema #30 tabs 07/16/24 tirzepatide 5 mg/0.5 mL subcutaneous pen injector (Mounjaro) 5 mg subcut QWEEK 11/22/24 acetaminophen 500 mg tablet 1,000 mg (2 x 500 mg) PO Q8H #180 tabs 11/28/24 aspirin 81 mg tablet,delayed release 81 mg PO BIDCM 2 weeks #28 tabs 11/28/24 doxycycline monohydrate 100 mg capsule 100 mg PO BID 7 days #14 caps 11/28/24 oxycodone 5 mg tablet 5 - 10 mg (1 - 2 x 5 mg) PO Q4H PRN PRN Pain Score 4-10 7 days #30 tabs 11/28/24 sennosides 8.6 mg-docusate sodium 50 mg tablet (Stimulant Laxative Plus) 2 tab PO BID #14 tabs 11/28/24 Hospital Course Operations - (Right reverse total shoulder arthroplasty) Procedures None Summary of Care Provided Hospital Course: Patient is s/p right reverse total shoulder arthroplasty 11/26/[address] Rodriguez. Patient resting comfortably in bed. Rates pain 5/ 10 at rest. With movement 7/10. States taking Tylenol and oxycodone and ice help to relieve pain. Patient has been up with therapy. Sling in place. Nonweightbearing to right upper extremity.. Afebrile, no chest pain, shortness of breath (more content not included)...[facility]04-08-2025 Radiology Diagnostic study note [facility] Imaging Services [address] [place], [place] [id number] Shoulder One View MR#: [id number] Acct: [id number] Name: RAJWINDER WYLIE Rep #: [id number] : 1950 F 74 From: Mann Morales MD PCP: Dr. Davion Peoples MD Status: ADM TAI Study:Shoulder One View Date of Exam: Exam# [id number] Ordering Dr: Andrew Rodriguez DO PROCEDURE: SHOULDER ONE VIEW 11/26/2024 REASON FOR EXAM: REVERSE TOTAL SHOULDER TECHNIQUE: 2 fluoroscopic images of the right shoulder. COMPARISON: None FINDINGS: Intraoperative images from a right total shoulder replacement is noted. Right shoulder hardware is identified, anatomic alignment. RAD/Shoulder One View IMPRESSION: Limited intraoperative images from right shoulder replacement. Anatomic alignment. Reading Location: [id number] CC: Dr. Davion Peoples MD; Dr. Andrew Rodriguez DO ~ Rn Utilization Management Um: Signed [facility]04-07-2025 Progress note Author Andrew Fox [facility] Note Date/Time November 26, 2024 5:24 pm [facility] Medical Records Department [address] [place] [address] Progress Note - Hospitalist 11/26/24 1719 MR#: [id number] Acct: [id number] Name: RAJWINDER WYLIE Rep #:[id number] : 1950 74 From: Andrew cardenas MD PCP: Dr. Davion Peoples MD Status :ADM TAI Location: KS3 IC068-2 Subjective Subjective 74-year-old female presented for surgery of her right proximal humerus for nonunion. She is doing well postoperatively, not requiring any oxygen. Objective Data Objective Data Vital Signs: Vital Signs Temp Pulse Resp BP Pulse Ox O2 Del Method O2 Flow Rate 97.5 F L 73 18 168/99 H 93 Room Air 4 11/26/24 16:41 11/26/24 16:41 11/26/24 16:41 11/26/24 16:41 11/26/24 16:41 11/26/24 16:41 11/26/24 14:42 Oxygen Flow Rate (L/min) 4 Oxygen Delivery Method Room Air Weight: 222 lb 10.67 oz Body Mass Index (BMI) 38.2 Intake & Output: Intake and Output for Last 24 Hours 11/25/24 11/26/24 11/27/24 03:59 03:59 03:59 Intake Total 2650.75 / 2650.75 Balance 2650.75 / 2650.75 Lab / Micro Data 11/17/24 11:03 11/17/24 11:03 Labs: Laboratory Results - last 24 hr 11/26/24 08:45: POC Glucose 117 H Micro: Microbiology 11/17/24 11:03 Swab (Method) Nasal Screen MRSA/MSSA - Final Radiography Diagnostic Testing: Radiology Impression Shoulder X-Ray 11/26/24 12:43 IMPRESSION: Status post total shoulder replacement in anatomic position. Reading Location: [facility] Physical Exam Narrative General: Alert, Oriented x3, Cooperative, No apparent distress HEENT: Atraumatic, PERRLA, EOMI, Normocephalic Oral: Dry mucosa Neck: Supple, No JVD Lungs: Diminished, Normal air movement, No rhonchi, No wheeze, No rales Cardiovascular: Regular rate, Regular Rhythm, Normal S1, Normal S2, No murmurs Abdomen: Soft, Non Tender, Non-Distended, No Hepato-splenomegaly Extremities: No edema, Capillary Refill Less than 3 Seconds, right arm in a sling Skin: No rashes, No breakdown, right shoulder dressing is intact Musculoskeletal: No Tenderness to Palpation of Joints or Extremities Neurological: No focal neurological deficits, Motor Exam 5/5 strength throughout, Sensory exam intact to light touch and pain Psych/Mental Status: Normal Affect, Appropriate Assessment & Plan Assessment/Plan (1) Status post reverse total arthroplasty of right shoulder: PLAN: Plan 1. 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 Pain management per primary ? PT/OT ? Will hold her losartan tonight pending BMP check in the morning 2. Essential HTN/HLD ? Continue with her home blood pressure medications except for losartan ? Monitor creatinine in the morning, if elevated hold hydrochlorothiazide as well, her Lasix is doses as needed for edema ? Continue with metoprolol 3. DM2 ? Stable, hold metformin and Jardiance ? Accu-Cheks ACHS ? Sign scale insulin/will monitor make adjustments as necessary 4. Anxiety/depression ? Stable ? Can resume her home medications 5. Sjogren's ? She is on leflunomide and as needed prednisone ? Stable 6. Seizure disorder ? Stable ? Continue with Keppra DVT: Per primary Charges/Coding Visit Charges Office Visits / Consults: 97057 OV L3 New 30min 11/26/24 1724 <Electronically signed by Andrew Fox MD> Cosigner Signature (if applicable): CC: ~ Signed [facility] Work Phone: 1(358) 267-630304-07-2025 Progress note [facility] Medical Records Department [address] [place] [id number] Progress Note - Hospitalist 11/26/24 1719 MR#: [id number] Acct: [id number] Name: RAJWINDER WYLIE Rep #:[id number] : 1950 74 From: Andrew cardenas MD PCP: Dr. Davion Peoples MD Status :ADM TAI Location: MS3 [id number] Subjective Subjective 74-year-old female presented for surgery of her right proximal humerus for nonunion. She is doing well postoperatively, not requiring any oxygen. Objective Data Objective Data Vital Signs: Vital Signs Temp Pulse Resp BP Pulse Ox O2 Del Method O2 Flow Rate 97.5 F L 73 18 168/99 H 93 Room Air 4 11/26/24 16:41 11/26/24 16:41 11/26/24 16:41 11/26/24 16:41 11/26/24 16:41 11/26/24 16:41 11/26/24 14:42 Oxygen Flow Rate (L/min) 4 Oxygen Delivery Method Room Air Weight: 222 lb 10.67 oz Body Mass Index (BMI) 38.2 Intake & Output: Intake and Output for Last 24 Hours 11/25/24 11/26/24 11/27/24 03:59 03:59 03:59 Intake Total 2650.75 / 2650.75 Balance 2650.75 / 2650.75 Lab / Micro Data 11/17/24 11:03 11/17/24 11:03 Labs: Laboratory Results - last 24 hr 11/26/24 08:45: POC Glucose 117 H Micro: Microbiology 11/17/24 11:03 Swab (Method) Nasal Screen MRSA/MSSA - Final Radiography Diagnostic Testing: Radiology Impression Shoulder X-Ray 11/26/24 12:43 IMPRESSION: Status post total shoulder replacement in anatomic position. Reading Location: [facility] Physical Exam Narrative General: Alert, Oriented x3, Cooperative, No apparent distress HEENT: Atraumatic, PERRLA, EOMI, Normocephalic Oral: Dry mucosa Neck: Supple, No JVD Lungs: Diminished, Normal air movement, No rhonchi, No wheeze, No rales Cardiovascular: Regular rate, Regular Rhythm, Normal S1, Normal S2, No murmurs Abdomen: Soft, Non Tender, Non-Distended, No Hepato-splenomegaly Extremities: No edema, Capillary Refill Less than 3 Seconds, right arm in a sling Skin: No rashes, No breakdown, right shoulder dressing is intact Musculoskeletal: No Tenderness to Palpation of Joints or Extremities Neurological: No focal neurological deficits, Motor Exam 5/5 strength throughout, Sensory exam intact to light touch and pain Psych/Mental Status: Normal Affect, Appropriate Assessment & Plan Assessment/Plan (1) Status post reverse total arthroplasty of right shoulder: PLAN: Plan 1. Status post reverse total arthroplasty of the right shoulder for right proximal humerus nonunionon 11/26/2024 ? Pain management per primary ? PT/OT ? Will hold her losartan tonight pending BMP check in the morning 2. Essential HTN/HLD ? Continue with her home blood pressure medications except for losartan ? Monitor creatinine in the morning, if elevated hold hydrochlorothiazide as well, her Lasix is doses as needed for edema ? Continue with metoprolol 3. DM2 ? Stable, hold metformin and Jardiance ? Accu-Cheks ACHS ? Sign scale insulin/will monitor make adjustments as necessary 4. Anxiety/depression ? Stable ? Can resume her home medications 5. Sjogren's ? She is on leflunomide and as needed prednisone ? Stable 6. Seizure disorder ? Stable ? Continue with Keppra DVT: Per primary Charges/Coding Visit Charges Office Visits / Consults: 17473 OV L3 New 30min 11/26/24 1724 Cosigner Signature (if applicable): CC: ~ Signed [facility]04-07-2025 Procedure note [facility] Medical Records Department [address] [place] [address] Operative Report 11/26/24 1559 MR#: [id number] Acct: [id number] Name: RAJWINDER WYLIE Rep #:[id number] : 1950 74 From: Andrew reyes DO PCP: Dr. Davion Peoples MD Status :ADM TAI Location: [place] [address] Operative Report (Standard) Operative Information Date of Procedure: 11/26/24 Pre-Operative Diagnosis: Right proximal humerus nonunion Post-Operative Diagnosis: Right proximal humerus nonunion Surgery/Procedure Performed: Right reverse total shoulder arthroplasty outbound sales specialist: Yes Fisher Diver Net: Lurdes Jimenez Tasks completed by photographer's assistant: Opening & closing, Dissecting tissue, Implanting device and Retracting Additional assistant store manager operations?: No Type of Anesthesia: General/Regional RN Documented Start/Stop Times: Operation Date: 11/26/24 09:25 Case Time Into Pre-Op 11/26/24 08:18 Anesthesia Start 11/26/24 09:40 Into Room 11/26/24 09:40 Procedure Start 11/26/24 10:15 Procedure End 11/26/24 12:21 Anesthesia End 11/26/24 12:31 Out of Room 11/26/24 12:31 Into Recovery 11/26/24 12:35 Out of Recovery 11/26/24 14:15 Procedure Start Time: 10:15 Procedure Stop Time: 12:21 Select all DRAINS/GRAFTS/IMPLANTS that apply: Implanted device Implanted device details: Tornier perform fracture stem size 9, +3 mm retentive polyethylene, Tornier Aequalis PerFORM+ reversed baseplate 25 mm +6 mm lateralization, standard glenosphere cobalt chrome 39 mm diameter Estimated Blood Loss: 50 cc Specimen collected: Yes Description of specimen(s) removed: Right humeral head Description of surgery: Patient arrived to [facility] morning of the procedure and was greeted by the same day surgery staff. Prior to her procedure, I greeted the patient in the preoperative holding area I identified the patient by name, record number, and date of . Informed consent was confirmed. The operative extremity was marked. All questions were answered to patient satisfaction. Patient was also seen by anesthesia staff. Interscalene block was administered prior to procedure for postoperative analgesia. At time of her procedure, patient was brought to the operative suite and positioned supine on a standard table with a beachchair attachment. General anesthesia was induced after all bony prominences were well-padded. Endotracheal tube was placed. After adequate anesthesia and securing the tube, we prepared the patient to be positioned in the beachchair position. A well-padded barrel filler head was applied. The nonoperative extremity was placed in a wellarm villalba. She was then brought into the beachchair position after we confirmed an appropriate blood pressure. We then spun the bed 45 degrees. Theoperative extremity was then prepared. In the butterfly wing of the bed was removed and a well-padded torso strap was applied to secure the patient to the bed. The operative extremity was now free. We then prepped and draped the right upper extremity in normal, sterile orthopedic fashion. We then performed a timeout with all parties in attendance in agreement with theside, site, and operation be performed. 2 g Ancef was administered prior to incision by anesthesia staff, as well as 1 g TXA IV. No concerns were voiced and we elected to proceed. I first marked a standard deltopectoral incision just lateral to the coracoid process in line with the long axis of the humerus. Skin was sharply incised with 10 blade scalpel. I then dissected bluntly through the subcutaneous layersand found the fat stripe between the deltoid and pectoralis major.The cephalicvein was then identified and protected. It was retracted laterally with the deltoid. I then bluntly dissected beneath the deltoid with a Hoskins elevator. There is significant adherence of the subdeltoid and subacromial bursa to the proximal humeral fractured segment. I was able to elevatethis significantly but cannot completely release the adhesions with blunt dissection. A pseudoarthrosis was noted at the surgical neck. The humeral head was then able to be excised from the surgical field after careful dissection from surrounding pseudocapsule that had formed at the pseudoarthrosis. There was an effusion noted within the pseudoarthrosis. There was an approximate 1 cm maximal diameter fragment of bone noted posterior laterally which I suspected was the remnant of the greater tube rosity fragment. I tagged this for later possible repair. It should be noted that the fragment was visualized and identified at the 10 o'clock position of the glenoid and was unable to be lateralizedbeyond the face of the glenoid, as can be seen in chronic rotator cuff tears. After removal of the humeral head, identified the glenoid and glenoid labrum. 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 The remaining glenoid labrum was thendebrided. 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 Central pin wasplaced based on preoperative templating. I reamed with a standard 25 mm reamer to a flat face of the glenoid down to bleeding subchondral bone. I then drilledfor short post and + 6 mm baseplate was assembled on the back table with a shortpost. Implant was then impacted to appropriate depth with excellent purchase. Peripheral screws were then placed with excellent purchase. 39 mm glenosphere was then impacted and locking screw tightened. I then turned my attention back to the humerus. I used a drill bit and subsequent awl to identify our humeral canal which was essentially healed over given the sclerosis from the pseudoarthrosis. There was significant sclerotic cortical bone along all margins of the proximal humeral segment especially laterally. This made it challenging to lateralize much as possible. The smallest broach in the system, size #7, was the only approach that appropriatelygained depth, fortunately did have excellentrotational and axial control/stability. I selected a 0 and then subsequently trialed a +3 mm polyethylene which achieved excellent stability. Given the lack of mobilizationof the greater tuberosity se gment I elected to remove this bone. Orthogonal fluoroscopy demonstrated appropriate sizing. Range of motion was excellent withexcellent stability. Trial dislocation was performed. Trials were removed fromthe humeral side. The wound was copiously irrigated with a 3-minute sterile diluted Betadine soak. Sterile saline was then irrigated through. Final stem was then impacted to appropriate depth and a +3 mm retentive poly was impacted. Final reduction was performed. Interval tissue was reapproximated with [id number]-[id number]-hzzzl #1 Vicryl suture. Fascial tissue was closed in running, lockingfashion with #1 Vicryl suture. Dermis reapproximated with buried 2-0 Vicryl suture and skin finally approximated with a 3-0 V-Loc and Dermabond. Silver sterile compression dressing was applied. Patient was awakened from anesthesia explained the operative suite. She was placed in an UltraSling. She tolerated the procedure well without apparent complication. She was transferred to her hospital bed and subsequently to PACU in stable condition. Need for skilled assistant store manager operations: Lurdes Jimenez PA-C was critical to the outcome of thecase. During the course of the procedure the physician assistant store manager operations played a vitalrole. Her intimate knowledge of my stepsin the procedure aided in safe and expedient completion of the procedure. The PA played a vital role in positioning particularly in obtaining the appropriate positioning. The PA was also vital in theretraction of soft tissues during the exposure and projecting vital structures. The PA was also vital and protecting soft tissues during times of bony cuts. She also played a vital role in closure with my direct supervision. The PA was also important during reduction and dislocation of the joint and trials intraoperatively. Intraoperative medications: 2 g Ancef IV, 1 g TXA IV Post Operative Plan: Weightbearing: Nonweightbearing left upper extremity, okay for pendulums. Rangeof motion of wrist elbow and hand as tolerated. Antibiotics: 2 g Ancef IV prior to incision, Ancef x 24 hours postoperatively. Plan for 1 week doxycycline for extended antibiotic prophylaxis given multiple risk factors. DVT Prophylaxis: Aspirin 81 mg twice daily starting tomorrow Marcus: None Dressing: Maintain silver dressing x5 days. Okay to shower dressing on started on day 4 X-Rays: 2 weeks postop in the office Pain Medication: Percocet Rx upon discharge Follow-up: 2 weeks post-operatively in the office Surgical Findings: Pseudoarthrosis right proximal humerus. Stable following final reduction. Complications Complications: No Admit VTE Documentation VTE Present on Admission: No VTE Mechan Device Prophylaxis: SCD's VTE Pharm Prophylaxis ordered?: Yes 11/26/24 1610 Cosigner Signature (if applicable): CC: Dr. Davion Peoples MD; Dr. Andrew Fox MD; Dr. Andrew Rodriguez, DO~ Signed [facility]04-07-2025 Consult note Author Waqas jean-claude [facility] Note Date/Time November 26, 2024 1:58 pm [facility] Medical Records Department [address] [place] [address] Anesthesia Postop Eval II 11/26/24 1357 MR#: [id number] Acct: [id number] Name: RAJWINDER WYLIE Rep #:[id number] : 1950 74 From: Waqas Flores MD PCP: Dr. Davion Peoples MD Status :ADM TAI Y Race: C Location: [facility] [id number] -[id number] Anesthesia Postop Eval I Sum Postop Eval Completion status Anesthesia document: Postop Eval 1 completed: Yes Anesthesia Postop Eval I Summary Anesthesia Postop Eval I Summary: Anesthesia Postop Eval I: Assessment Summary Airway patent Yes 11/26/24 12:40 [email or web address] [email or web address] Spontaneous unlabored Yes 11/26/24 12:40 [email or web address] [email or web address] respirations Mental status Awake,Calm 11/26/24 12:40 [email or web address] [email or web address] nausea No 11/26/24 12:40 [email or web address] Vomiting No 11/26/24 12:40 [email or web address] [email or web address] Anesthesia Postop Eval I: Fluid Summary Crystalloid volume administer 1,800 11/26/24 12:40 [email or web address] [email or web address] (ml) Colloids volume administered ( ml) Blood Product volume administered (ml) Total IV fluid infused 1,800 11/26/24 12:40 [email or web address] [email or web address] Anesthesia Postop Eval I: Summary Notes Anesthesia Complication No 11/26/24 12:40 [email or web address] Anesthesia Complication Comment: Post-operative progress note Anesthesia: Postop Eval II Evaluation Mental status: Awake Pain Level: 0 nausea: No Vomiting: No 11/26/24 1588 <Electronically signed by Waqas Flores MD > Date _ Waqas Flores MD Cosigner Signature: Date CC: ~ Signed [facility] Work Phone: 1(242) 631-609304-07-2025 Consult note Author Wai Rey [facility] Note Date/Time November 26, 2024 12:4 0pm [facility] Medical Records Department [address] [place] [address] Anesthesia Postop Eval I 11/26/24 1239 MR#: [id number] Acct: [id number] Name: RAJWINDER WYLIE Rep #:[id number] : 1950 74 From: Wai Rey CRNA PCP: Dr. Davion Peoples MD Status :REG SDC Y Race: C Location: [place] [address] Anesthesia: Postop Eval I Current Vital Signs Temperature: 96.6 F Pulse Rate: 67 Blood Pressure: 133/63 Respiratory Rate: 16 Pulse Ox: 95 Oxygen Delivery Method: Venturi Mask Oxygen Flow Rate (L/min): 4 Assessment Airway patent: Yes Spontaneous unlabored respirations: Yes Mental status: Awake and Calm nausea: No Vomiting: No Anesthesia Complication: No Fluid Hydration Crystalloid volume administer (ml): 1,800 Total IV fluid infused: 1,800 Progress Note Anesthesia document: Postop Eval 1 completed: Yes 11/26/24 1240 <Electronically signed by Wai shelton CRNA> Date _ Wai Rey CRNA Cosigner Signature: Date CC: ~ Signed [facility] Work Phone: 1(868) 469-541404-07-2025 Evaluation note* Diagnosis Onset Date Resolution Status Admit Date Status post reverse total arthroplasty of right shoulder inactive A pril 2024 12:13pm [facility] Work Phone: 1(483) 874-338804-07-2025 Consult note [facility] Medical Records Department [address] [place] [address] Anesthesia Postop Eval II 11/26/24 1357 MR#: [id number] Acct: [id number] Name: RAJWINDER WYLIE Rep #:[id number] : 1950 74 From: Waqas Flores MD PCP: Dr. Davion Peoples MD Status :ADM TAI Y Race: C Location: [place] [address] Anesthesia Postop Eval I Sum Postop Eval Completion status Anesthesia document: Postop Eval 1 completed: Yes Anesthesia Postop Eval I Summary Anesthesia Postop Eval I Summary: Anesthesia Postop Eval I: Assessment Summary Airway patent Yes 11/26/24 12:40 [email or web address] [email or web address] Spontaneous unlabored Yes 11/26/24 12:40 [email or web address] [email or web address] respirations Mental status Awake,Calm 11/26/24 12:40 [email or web address] [email or web address] nausea No 11/26/24 12:40 [email or web address] Vomiting No 11/26/24 12:40 [email or web address] [email or web address] Anesthesia Postop Eval I: Fluid Summary Crystalloid volume administer 1,800 11/26/24 12:40 [email or web address] [email or web address] (ml) Colloids volume administered ( ml) Blood Product volume administered (ml) Total IV fluid infused 1,800 11/26/24 12:40 [email or web address] [email or web address] Anesthesia Postop Eval I: Summary Notes Anesthesia Complication No 11/26/24 12:40 [email or web address] Anesthesia Complication Comment: Post-operative progress note Anesthesia: Postop Eval II Evaluation Mental status: Awake Pain Level: 0 nausea: No Vomiting: No 11/26/24 1358 > Date _ Waqas Flores MD Cosigncaren Signature: Date CC: ~ Signed [facility]04-07-2025 Radiology Diagnostic study note [facility] Imaging Services [address] [place] [address] [id number] Shoulder min 2 Views MR#: [id number] Acct: [id number] Name: RAJWINDER WYLIE Rep #: [id number] : 1950 F 74 From: Cece Kiran MD PCP: Dr. Davion Peoples MD Status: ADM TAI Study:Shoulder min 2 Views Date of Exam: 11/26/24 Exam# [id number] Ordering Dr: Andrew Rodriguez DO EXAM: XR Right Shoulder Complete, 2 or More Views CLINICAL INDICATION: POST OP TECHNIQUE: Two or more views of the right shoulder. COMPARISON: No relevant prior studies available. FINDINGS: BONES/JOINTS: Total shoulder replacement. Intact hardware. No acute fracture. No dislocation. SOFT TISSUES: Soft tissue emphysema and swelling. RAD/Shoulder min 2 Views IMPRESSION: Status post total shoulder replacement in anatomic position. Reading [facility] CC: Dr. Davion Peoples MD; Dr. Andrew Rodriguez DO ~ Rn Utilization Management Um: Signed [facility]04-07-2025 Consult note [facility] Medical Records Department [address] [place] [address] Anesthesia Postop Eval I 11/26/24 1239 MR#: [id number] Acct: [id number] Name: RAJWINDER WYLIE Rep #:[id number] : 1950 74 From: Wai Rey CRNA PCP: Dr. Davion Peoples MD Status :REG SDC Y Race: C Location: [address] Anesthesia: Postop Eval I Current Vital Signs Temperature: 96.6 F Pulse Rate: 67 Blood Pressure: 133/63 Respiratory Rate: 16 Pulse Ox: 95 Oxygen Delivery Method: Venturi Mask Oxygen Flow Rate (L/min): 4 Assessment Airway patent: Yes Spontaneous unlabored respirations: Yes Mental status: Awake and Calm nausea: No Vomiting: No Anesthesia Complication: No Fluid Hydration Crystalloid volume administer (ml): 1,800 Total IV fluid infused: 1,800 Progress Note Anesthesia document: Postop Eval 1 completed: Yes 11/26/24 1240 y HOME CARE AIDE> Date _ Wai Mezaigner Signature: Date CC: ~ Signed [facility]04-07-2025 Consult note Author Waqas Flores [facility] Note Date/Time November 26, 2024 8:47 am [facility] Medical Records Department [address] [place] [address] Pre-Anesthesia Evaluation 11/26/24 0846 MR#: [id number] Acct: [id number] Name: RAJWINDER WYLIE Rep #:[id number] : 1950 74 From: Waqas Flores MD PCP: Dr. Davion Peoples MD Status :REG SD Y Race: C Location: [address] ASA Classification* ASA Classification ASA Classification: 3 Assessment & Plan Anesthesia* Anesthesia Assessment Anesthesia Assessment: Discussed sedation and/or anesthesia options, risks, benefits, and alternatives with patient/parents/legal guardian/POA. Questions invited. The patient/parents/legal guardian/POA seems to understand and agrees to proceedwith anesthesia plan. Reviewed the physical assessment, medical history, allergy history and patient home medications list prior to surgery/procedure/anesthetic and documented any changes. Performed airway and anesthesia risk assessments. Anesthesia Type Anesthesia Type: General and Block Anesthesia Focused Assessment* Airway Assessment Mouth opens: >3 cm Mallampati Score: II Focused Labs Anesthesia Preop lab: CBC WBC 6.4 K/mm3 (4.4-11.0) 11/17/24 11:03 11/17/24 RBC 5.26 M/mm3 (4.2-5.4) 11/17/24 11:03 11/17/24 Hgb 13.7 g/dL (12.0-15.0) 11/17/24 11:03 11/17/24 Hct 43.7 % (37-47) 11/17/24 11:03 11/17/24 Plt Count 193 K/mm3 (150-450) 11/17/24 11:03 11/17/24 CHEMISTRY Potassium 4.4 mmol/L (3.3-5.1) 11/17/24 11:03 11/17/24 Sodium 139 mmol/L (133-145) 11/17/24 11:03 11/17/24 Magnesium 2.4 mg/dL (1.5-2.2) H 11/17/24 11:03 11/17/24 Phosphorus 3.8 mg/dL (2.5-4.9) 01/25/23 09:18 01/25/23 BUN 31 mg/dL (4-19) H 11/17/24 11:03 11/17/24 Creatinine 1.15 mg/dL (0.70-1.20) 11/17/24 11:03 11/17/24 Glucose 138 mg/dL (70-99) H 11/17/24 11:03 11/17/24 POC Glucose 250 mg/dL (74-106) H 10/18/23 11:16 10/18/23 TSH 1.780 uIU/mL (0.358-3.740) 07/25/24 11:56 12/0 12/13 COAG PT 14.0 SECONDS (11.7-14.9) 05/16/24 15:11 Pre-Assessment Diagnosis/Proposed Procedure Planned Operative Procedure(s): (R) RIGHT REVERSE TOTAL SHOULDER ARTHROPLASTY, ERAS Anesthesia History Anesthesia History - account receivable associate: Anesthesia History - account receivable associate Hx Hospitalization No 10/31/24 13:16 Any Problems With Anesthesia Yes: SLOW TO WAKE UP 10/31/24 13:16 Cholinesterase deficiency No 10/31/24 13:16 You/Your Family Experience No 10/31/24 13:16 fever (hyperthermia) with Relationship Recent Exposure to Contagious No 10/18/23 15:51 Disease Does patient have nerve No 10/31/24 13:16 stimulator Patient instructed to have device shut off --Does patient have Pacemaker or ICD? When Was Last Pacemaker Check QUESTION #4 FULL TEXT: You/Your Family Experience fever (hyperthermia) with Anesthesia Last Oral Intake Last Oral intake: Last Oral Intake NPO since Meds taken in AM with sips of water? Meds patient instructed to take am of surgery PONV PONV - account receivable associate: PONV - account receivable associate Female Yes 10/31/24 13:16 HX of Motion Sickness Yes 10/31/24 13:16 HX of N/V After Surgery No 10/31/24 13:16 Non-Smoker Yes 10/31/24 13:16 Duration of Surgery greater Yes 10/31/24 13:16 than 60 minutes Number of Risk Factors 4 10/31/24 13:16 PONV Score Severe Risk 10/31/24 13:16 Height & Weight Height & Weight: Anesthesia: Height & Weight Height 5 ft 4 in 11/23/24 10:04 Weight: 87.09 kg 11/23/24 10:04 Respiratory Assessment Respiratory Assessment - account receivable associate: Respiratory Tract Infection Hx - account receivable associate Hx Respiratory Tract Infection No 10/31/24 13:16 STOP Sleep Apnea STOP Sleep Apnea - account receivable associate: STOP Sleep Apnea - account receivable associate Hx Hypertension Yes: CONTROLLED WITH MEDS 10/31/24 13:16 Hx Sleep Apnea Yes 10/31/24 13:16 CPAP Yes 10/31/24 13:16 BIPAP No 10/31/24 13:16 Do you snore loudly (louder than talking or can be heard Do you often feel tired/ fatigued/ sleepy during daytime? Has anyone observed you stop breathing during sleep? STOP Results Positive 10/31/24 13:16 QUESTION #5 FULL TEXT : Do you snore loudly (louder than talking or can be heard through closed doors)? 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 Specify any problems Hx of Preganancy in last 3 N/A 10/31/24 13:16 Months Nurse Filling Out Transfusion NBUCHER 10/31/24 13:16 & Questions: Date: 10/31/24 10/31/24 13:16 Time: 13:20 10/31/24 13:16 Patient unable to answer at this time (ie. confused, unrespo /Reproduction History /Reproductive History - account receivable associate: /Reproductive Hx- account receivable associate Hx Now Gestational Age (in weeks): EDC: Hx Hx Para Hx Section SAB No 10/31/24 13:16 Active Medications Active Medications: Current Medications Generic Name Dose Route Start Last Admin Trade Name Freq PRN Reason Stop Dose Admin Acetaminophen 1,000 mg 11/26/24 10:25 Acetaminophen 500 Mg Tablet PO 11/26/24 10:26 X1 ONE Dexamethasone Sodium Phosphate 10 mg 11/26/24 10:25 Dexamethasone 10 Mg/Ml Vial IV 11/26/24 10:26 X1 ONE Gabapentin 600 mg 11/26/24 10:25 Gabapentin 600 Mg Tablet PO 11/26/24 10:26 X1 ONE Lactated Ringer's 1,000 mls @ 999 mls/hr 11/26/24 10:25 IV 11/26/24 11:25 .Q1H1M RO Cefazolin Sodium 2 gm/ N/A 20 mls @ 400 mls/hr 11/26/24 10:25 IV 11/26/24 10:27 PREOP ONE Tranexamic Acid 1,000 mg/ 110 mls @ 660 mls/hr 11/26/24 10:25 Sodium Chloride IV 11/26/24 10:34 X1 ONE Lactated Ringer's 1,000 mls @ 999 mls/hr 11/26/24 10:25 IV 11/26/24 11:25 .Q1H1M RO Lactated Ringer's 1,000 mls @ 125 mls/hr 11/26/24 10:25 IV 11/26/24 18:24 .Q8H RO Lactated Ringer's 1,000 mls @ 75 mls/hr 11/26/24 10:25 IV 11/26/24 23:44 .[id number] RO Magnesium Sulfate 1 gm/ 102 mls @ 408 mls/hr 11/26/24 10:25 Dextrose IV 11/26/24 10:39 X1 ONE Insulin Human Lispro 1 - 6 unit 11/26/24 10:25 Insulin Lispro 100 Unit/Ml Insuln.Pen SC 11/26/24 18:00 Q4H PRN PRN BG>/= 180, SEE PROTOCOL Protocol Sodium Chloride 10 - 40 ml 11/26/24 10:25 0.9% Nacl Peripheral Flush Adult IV UD PRN SALINE FLUSH PFSH Medical History Shingles Discoloration of skin Kidney stones Injury of back Injury of head and neck Shortness of breath on exertion Syncope Fall Fracture of proximal end of right humerus Cataract (lens) fragments in eye following cataract surgery, bilateral MRSA infection Post-menopausal Depression Anxiety History of steroid therapy Diabetes Walker as ambulation aid Ambulates with cane Osteoarthritis Arthritis Easy bruising High cholesterol Restless legs Seizures Blackout Dietary restriction Non-smoker CPAP (continuous positive airway pressure) dependence History of edema History of echocardiogram History of stress test Cardiology follow-up encounter Abnormal stress test Sjogren's disease Sinusitis Sinus arrhythmia Rheumatoid arthritis Obesity Atherosclerotic heart disease of [place] coronary artery without angina pectoris First degree atrioventricular block Other shelter (current) drug therapy Nicotine dependence in remission Post traumatic stress disorder Gout Lyme disease Sleep apnea Hypertension Asthma Home Medications ?Medication ?Instructions ?Recorded ?Last Taken ?Type fluticasone 500 mcg-salmeterol 50 1 puff inhalation BI D shortness of 01/23/15 04/17/15 05:15 History mcg/dose blistr powdr for breath inhalation (Advair Diskus) albuterol sulfate 90 mcg/actuation 1 - 2 puff inhalati on Q4H PRN 04/15/15 Unknown History aerosol inhaler (ProAir HFA) Asthma montelukast 10 mg tablet 10 mg PO QHS allergies 04/15 Unknown History amlodipine 10 mg tablet 10 mg PO DAILY blood pressur e 05/28/15 04/05/17 07:15 History 10 MG atorvastatin 20 mg tablet 20 mg PO QHS cholesterol 10/14 Unknown History citalopram 40 mg tablet 30 mg PO QHS sleep 09/23/22 Unknown History empagliflozin 10 mg tablet 10 mg PO DAILY diabetes 10/14 Unknown History (Jardiance) hydrochlorothiazide 12.5 mg tablet 12.5 mg PO DAILY bl ood pressure 09/23/22 Unknown History leflunomide 20 mg tablet 20 mg PO DAILY inflammation 09/23/22 Unknown History levetiracetam 750 mg 750 mg PO QHS seizures 09/23 Unknown History tablet,extended release 24 hr losartan 100 mg tablet 100 mg PO QHS blood pressure 09/23/22 Unknown History metformin 500 mg tablet 500 mg PO DAILY diabetes 10/14 Unknown History ondansetron HCl 4 mg tablet 4 mg PO Q8H PRN Nausea 10/14 Unknown History potassium chloride 20 mEq 20 meq PO DAILY potassium Unknown History tablet,extended release quetiapine 100 mg tablet 200 mg PO QHS mood disorder 09/23/22 Unknown History tiotropium bromide 2.5 2 puff inhalation DAILY shor tness 09/23/22 Unknown History mcg/actuation mist for inhalation of breath (Spiriva Respimat) meclizine 25 mg tablet 25 mg PO BID dizziness 11/26 Unknown History venlafaxine 150 mg 225 mg PO DAILY mood 3 Unknown History capsule,extended release 24 hr aspirin 81 mg tablet,delayed 81 mg PO DAILY heart 12/20 04/13 Unknown History release (Adult Low Dose Aspirin) guaifenesin 600 mg tablet, 600 mg PO BID PRN congestio n 04/29/23 Unknown History extended release 12 hr (Mucinex) prednisone 20 mg tablet 5 mg PO DAILY PRN pain 04/29 Unknown History fluticasone propionate 50 1 spray intranasal DAILY all ergy 10/12/23 Unknown History mcg/actuation nasal symptoms spray,suspension alprazolam 0.5 mg tablet 0.5 mg PO DAILY PRN Anxiety #10 10/18/23 Unknown Rx tabs alprazolam 1 mg tablet 1 mg PO QHS #20 tabs 4 Unknown Rx pregabalin 75 mg capsule 75 mg PO BID 01/17/24 Unknow n History metoprolol tartrate 25 mg tablet 25 mg PO BID #180 tab s 05/30/24 Unknown Rx furosemide 40 mg tablet 20 mg (1/2 x 40 mg) PO DAILY PRN 07/16/24 Unknown Rx edema #30 tabs tirzepatide 5 mg/0.5 mL 5 mg subcut QWEEK 11/22/24 U nknown History subcutaneous pen injector (Mounjaro) Allergy/AdvReac Type Severity Reaction Status Date / Time lactose Allergy Severe Vomiting Verified 11/08/24 15:06 Sulfa (Sulfonamide Allergy Hives Verified 11/08/24 15:06 Antibiotics) tree nut Allergy Anaphylaxis Verified 11/08/24 15:06 Rabbit AdvReac Severe NEEDS Verified 11/08/24 15:06 FOLLOW-UP sulfamethoxazole (From AdvReac Severe Skin Verified 11/08/24 15:06 Bactrim) rashes & blisters trimethoprim (From Bactrim) AdvReac Severe Skin Verified 11/08/24 15:06 rashes & blisters codeine AdvReac Other Verified 11/08/24 15:06 Environmental Allergies: AdvReac NEEDS Verified 11/08/24 15:06 Uncoded FOLLOW-UP erythromycin base AdvReac Upset Verified 11/08/24 15:06 Stomach milk (dairy) AdvReac Upset Verified 11/08/24 15:06 Stomach morphine AdvReac Nausea Verified 11/08/24 15:06 Family History Mother Diabetes Hypertension Heart disease Father Diabetes Hypertension Heart disease Cancer Brother Heart disease Hypertension Atrial fibrillation Obesity Grandmother AAA (abdominal aortic aneurysm) Grandfather Heart disease Grandmother Cancer Surgical History Hx of toe surgery History of amputation of toe History of coronary artery stent placement History of cardiac catheterization History of knee replacement History of shoulder replacement Stented coronary artery (01/26/23) History of tonsillectomy H/O shoulder surgery History of arthroscopic knee surgery Social History Smoking Status: Never smoker alcohol intake: former substance use type: does not use Review of Systems (Anesthesia) ROS Narrative System reviewed and no additional complaints, except as documented. 11/26/24 0847 <Electronically signed by Waqas Flores MD > Date _ Waqas Flores MD Cosigner Signature: Date CC: ~ Signed [facility] Work Phone: 1(158) 705-909204-07-2025 Consult note [facility] Medical Records Department [address] [place] [address] Pre-Anesthesia Evaluation 11/26/24 0846 MR#: [id number] Acct: [id number] Name: RAJWINDER WYLIE Rep #:[id number] : 1950 74 From: Waqas Flores MD PCP: Dr. Davion Peoples MD Status :REG SDC Y Race: C Location: [place] [address] ASA Classification* ASA Classification ASA Classification: 3 Assessment & Plan Anesthesia* Anesthesia Assessment Anesthesia Assessment: Discussed sedation and/or anesthesia options, risks, benefits, and alternatives with patient/parents/legal guardian/POA. Questions invited. The patient/parents/legal guardian/POA seems to understand and agrees to proceedwith anesthesia plan. Reviewed the physical assessment, medical history, allergy history and patient home medications list prior to surgery/procedure/anesthetic and documented any changes. Performed airway and anesthesia risk assessments. Anesthesia Type Anesthesia Type: General and Block Anesthesia Focused Assessment* Airway Assessment Mouth opens: >3 cm Mallampati Score: II Focused Labs Anesthesia Preop lab: CBC WBC 6.4 K/mm3 (4.4-11.0) 11/17/24 11:03 11/17/24 RBC 5.26 M/mm3 (4.2-5.4) 11/17/24 11:03 11/17/24 Hgb 13.7 g/dL (12.0-15.0) 11/17/24 11:03 11/17/24 Hct 43.7 % (37-47) 11/17/24 11:03 11/17/24 Plt Count 193 K/mm3 (150-450) 11/17/24 11:03 11/17/24 CHEMISTRY Potassium 4.4 mmol/L (3.3-5.1) 11/17/24 11:03 11/17/24 Sodium 139 mmol/L (133-145) 11/17/24 11:03 11/17/24 Magnesium 2.4 mg/dL (1.5-2.2) H 11/17/24 11:03 11/17/24 Phosphorus 3.8 mg/dL (2.5-4.9) 01/25/23 09:18 01/25/23 BUN 31 mg/dL (4-19) H 11/17/24 11:03 11/17/24 Creatinine 1.15 mg/dL (0.70-1.20) 11/17/24 11:03 11/17/24 Glucose 138 mg/dL (70-99) H 11/17/24 11:03 11/17/24 POC Glucose 250 mg/dL (74-106) H 10/18/23 11:16 10/18/23 TSH 1.780 uIU/mL (0.358-3.740) 07/25/24 11:56 12/12/13 COAG PT 14.0 SECONDS (11.7-14.9) 05/16/24 15:11 Pre-Assessment Diagnosis/Proposed Procedure Planned Operative Procedure(s): (R) RIGHT REVERSE TOTAL SHOULDER ARTHROPLASTY, ERAS Anesthesia History Anesthesia History - account receivable associate: Anesthesia History - account receivable associate Hx Hospitalization No 10/31/24 13:16 Any Problems With Anesthesia Yes: SLOW TO WAKE UP 10/31/24 13:16 Cholinesterase deficiency No 10/31/24 13:16 You/Your Family Experience No 10/31/24 13:16 fever (hyperthermia) with Relationship Recent Exposure to Contagious No 10/18/23 15:51 Disease Does patient have nerve No 10/31/24 13:16 stimulator Patient instructed to have device shut off --Does patient have Pacemaker or ICD? When Was Last Pacemaker Check QUESTION #4 FULL TEXT: You/Your Family Experience fever (hyperthermia) with Anesthesia Last Oral Intake Last Oral intake: Last Oral Intake NPO since Meds taken in AM with sips of water? Meds patient instructed to take am of surgery PONV PONV - account receivable associate: PONV - account receivable associate Female Yes 10/31/24 13:16 HX of Motion Sickness Yes 10/31/24 13:16 HX of N/V After Surgery No 10/31/24 13:16 Non-Smoker Yes 10/31/24 13:16 Duration of Surgery greater Yes 10/31/24 13:16 than 60 minutes Number of Risk Factors 4 10/31/24 13:16 PONV Score Severe Risk 10/31/24 13:16 Height & Weight Height & Weight: Anesthesia: Height & Weight Height 5 ft 4 in 11/23/24 10:04 Weight: 87.09 kg 11/23/24 10:04 Respiratory Assessment Respiratory Assessment - account receivable associate: Respiratory Tract Infection Hx - account receivable associate Hx Respiratory Tract Infection No 10/31/24 13:16 STOP Sleep Apnea STOP Sleep Apnea - account receivable associate: STOP Sleep Apnea - account receivable associate Hx Hypertension Yes: CONTROLLED WITH MEDS 10/31/24 13:16 Hx Sleep Apnea Yes 10/31/24 13:16 CPAP Yes 10/31/24 13:16 BIPAP No 10/31/24 13:16 Do you snore loudly (louder than talking or can be heard Do you often feel tired/ fatigued/ sleepy during daytime? Has anyone observed you stop breathing during sleep? STOP Results Positive 10/31/24 13:16 QUESTION #5 FULL TEXT : Do you snore loudly (louder than talking or can be heard through closeddoors)? 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 Specify any problems Hx of Preganancy in last 3 N/A 10/31/24 13:16 Months Nurse Filling Out Transfusion NBUCHER 10/31/24 13:16 & Questions: Date: 10/31/24 10/31/24 13:16 Time: 13:20 10/31/24 13:16 Patient unable to answer at this time (ie. confused, unrespo /Reproduction History /Reproductive History - account receivable associate: /Reproductive Hx- account receivable associate Hx Now Gestational Age (in weeks): EDC: Hx Hx Para Hx Section SAB No 10/31/24 13:16 Active Medications Active Medications: Current Medications Generic Name Dose Route Start Last Admin Trade Name Michael PRN Reason Stop Dose Admin Acetaminophen 1,000 mg 11/26/24 10:25 Acetaminophen 500 Mg Tablet PO 11/26/24 10:26 X1 ONE Dexamethasone Sodium Phosphate 10 mg 11/26/24 10:25 Dexamethasone 10 Mg/Ml Vial IV 11/26/24 10:26 X1 ONE Gabapentin 600 mg 11/26/24 10:25 Gabapentin 600 Mg Tablet PO 11/26/24 10:26 X1 ONE Lactated Ringer's 1,000 mls @ 999 mls/hr 11/26/24 10:25 IV 11/26/24 11:25 .Q1H1M RO Cefazolin Sodium 2 gm/ N/A 20 mls @ 400 mls/hr 11/26/24 10:25 IV 11/26/24 10:27 PREOP ONE Tranexamic Acid 1,000 mg/ 110 mls @ 660 mls/hr 11/26/24 10:25 Sodium Chloride IV 11/26/24 10:34 X1 ONE Lactated Ringer's 1,000 mls @ 999 mls/hr 11/26/24 10:25 IV 11/26/24 11:25 .Q1H1M RO Lactated Ringer's 1,000 mls @ 125 mls/hr 11/26/24 10:25 IV 11/26/24 18:24 .Q8H RO Lactated Ringer's 1,000 mls @ 75 mls/hr 11/26/24 10:25 IV 11/26/24 23:44 .[id number] RO Magnesium Sulfate 1 gm/ 102 mls @ 408 mls/hr 11/26/24 10:25 Dextrose IV 11/26/24 10:39 X1 ONE Insulin Human Lispro 1 - 6 unit 11/26/24 10:25 Insulin Lispro 100 Unit/Ml Insuln.Pen SC 11/26/24 18:00 Q4H PRN PRN BG>/= 180, SEE PROTOCOL Protocol Sodium Chloride 10 - 40 ml 11/26/24 10:25 0.9% Nacl Peripheral Flush Adult IV UD PRN SALINE FLUSH PFSH Medical History Shingles Discoloration of skin Kidney stones Injury of back Injury of head and neck Shortness of breath on exertion Syncope Fall Fracture of proximal end of right humerus Cataract (lens) fragments in eye following cataract surgery, bilateral MRSA infection Post-menopausal Depression Anxiety History of steroid therapy Diabetes Walker as ambulation aid Ambulates with cane Osteoarthritis Arthritis Easy bruising High cholesterol Restless legs Seizures Blackout Dietary restriction Non-smoker CPAP (continuous positive airway pressure) dependence History of edema History of echocardiogram History of stress test Cardiology follow-up encounter Abnormal stress test Sjogren's disease Sinusitis Sinus arrhythmia Rheumatoid arthritis Obesity Atherosclerotic heart disease of [place] coronary artery without angina pectoris First degree atrioventricular block Other shelter (current) drug therapy Nicotine dependence in remission Post traumatic stress disorder Gout Lyme disease Sleep apnea Hypertension Asthma Home Medications ?Medication ?Instructions ?Recorded ?Last Taken ?Type fluticasone 500 mcg-salmeterol 50 1 puff inhalation BI D shortness of 01/23/15 04/17/15 05:15 History mcg/dose blistr powdr for breath inhalation (Advair Diskus) albuterol sulfate 90 mcg/actuation 1 - 2 puff inhalati on Q4H PRN 04/15/15 Unknown History aerosol inhaler (ProAir HFA) Asthma montelukast 10 mg tablet 10 mg PO QHS allergies 04/15 Unknown History amlodipine 10 mg tablet 10 mg PO DAILY blood pressur e 05/28/15 04/05/17 07:15 History 10 MG atorvastatin 20 mg tablet 20 mg PO QHS cholesterol 10/14 Unknown History citalopram 40 mg tablet 30 mg PO QHS sleep 09/23/22 Unknown History empagliflozin 10 mg tablet 10 mg PO DAILY diabetes 10/14 Unknown History (Jardiance) hydrochlorothiazide 12.5 mg tablet 12.5 mg PO DAILY bl ood pressure 09/23/22 Unknown History leflunomide 20 mg tablet 20 mg PO DAILY inflammation 09/23/22 Unknown History levetiracetam 750 mg 750 mg PO QHS seizures 09/23 Unknown History tablet,extended release 24 hr losartan 100 mg tablet 100 mg PO QHS blood pressure 09/23/22 Unknown History metformin 500 mg tablet 500 mg PO DAILY diabetes 10/14 Unknown History ondansetron HCl 4 mg tablet 4 mg PO Q8H PRN Nausea 10/14 Unknown History potassium chloride 20 mEq 20 meq PO DAILY potassium Unknown History tablet,extended release quetiapine 100 mg tablet 200 mg PO QHS mood disorder 09/23/22 Unknown History tiotropium bromide 2.5 2 puff inhalation DAILY shor tness 09/23/22 Unknown History mcg/actuation mist for inhalation of breath (Spiriva Respimat) meclizine 25 mg tablet 25 mg PO BID dizziness 11/26 Unknown History venlafaxine 150 mg 225 mg PO DAILY mood 3 Unknown History capsule,extended release 24 hr aspirin 81 mg tablet,delayed 81 mg PO DAILY heart 12/20 04/13 Unknown History release (Adult Low Dose Aspirin) guaifenesin 600 mg tablet, 600 mg PO BID PRN congestio n 04/29/23 Unknown History extended release 12 hr (Mucinex) prednisone 20 mg tablet 5 mg PO DAILY PRN pain 04/29 Unknown History fluticasone propionate 50 1 spray intranasal DAILY all ergy 10/12/23 Unknown History mcg/actuation nasal symptoms spray,suspension alprazolam 0.5 mg tablet 0.5 mg PO DAILY PRN Anxiety #10 10/18/23 Unknown Rx tabs alprazolam 1 mg tablet 1 mg PO QHS #20 tabs 4 Unknown Rx pregabalin 75 mg capsule 75 mg PO BID 01/17/24 Unknow n History metoprolol tartrate 25 mg tablet 25 mg PO BID #180 tab s 05/30/24 Unknown Rx furosemide 40 mg tablet 20 mg (1/2 x 40 mg) PO DAILY PRN 07/16/24 Unknown Rx edema #30 tabs tirzepatide 5 mg/0.5 mL 5 mg subcut QWEEK 11/22/24 U nknown History subcutaneous pen injector (Mounjaro) Allergy/AdvReac Type Severity Reaction Status Date / Time lactose Allergy Severe Vomiting Verified 11/08/24 15:06 Sulfa (Sulfonamide Allergy Hives Verified 11/08/24 15:06 Antibiotics) tree nut Allergy Anaphylaxis Verified 11/08/24 15:06 Rabbit AdvReac Severe NEEDS Verified 11/08/24 15:06 FOLLOW-UP sulfamethoxazole (From AdvReac Severe Skin Verified 11/08/24 15:06 Bactrim) rashes & blisters trimethoprim (From Bactrim) AdvReac Severe Skin Verified 11/08/24 15:06 rashes & blisters codeine AdvReac Other Verified 11/08/24 15:06 Environmental Allergies: AdvReac NEEDS Verified 11/08/24 15:06 Uncoded FOLLOW-UP erythromycin base AdvReac Upset Verified 11/08/24 15:06 Stomach milk (dairy) AdvReac Upset Verified 11/08/24 15:06 Stomach morphine AdvReac Nausea Verified 11/08/24 15:06 Family History Mother Diabetes Hypertension Heart disease Father Diabetes Hypertension Heart disease Cancer Brother Heart disease Hypertension Atrial fibrillation Obesity Grandmother AAA (abdominal aortic aneurysm) Grandfather Heart disease Grandmother Cancer Surgical History Hx of toe surgery History of amputation of toe History of coronary artery stent placement History of cardiac catheterization History of knee replacement History of shoulder replacement Stented coronary artery (01/26/23) History of tonsillectomy H/O shoulder surgery History of arthroscopic knee surgery Social History Smoking Status: Never smoker alcohol intake: former substance use type: does not use Review of Systems (Anesthesia) ROS Narrative System reviewed and no additional complaints, except as documented. 11/26/24 0847 > Date _ Waqas Flores MD Cosigner Signature: Date CC: ~ Signed [facility]03-20-2025 Evaluation note* Diagnosis Onset Date Resolution Status Admit Date Hyperlipidemia acute October 3:02pm Stented coronary artery January 26, 2023 acute November 08, 2024 3:02pm Hypertension chronic November 08, 2024 3:02pm Status post reverse total arthroplasty of right shoulder acute A pril 2024 12:13pm [facility] Work Phone: 1(677) 472-857003-06-2025 NoteHNO ID: [id number] Author: ANALIA RIVERA PA-C Service: ? Author Type: Physician Open Source Developer Type: Progress Notes Filed: 10/25/2024 08:08 Note Text: The appointment was cancelled for this patient. [facility]01-16-2025 Telephone encounter Note* Telephone Encounter - Darien Gudino Jr., MD - 09/06/2024 5:14 PM EST PDM website checked and validated. All prescriptions have been APPROPRIATELY filled. No suspiciousactivity was identified. 09/06/2024 by Darien Gudino MD [facility]01-16-2025 Miscellaneous Notes* Telephone Encounter - Darien Gudino Jr., MD - 09/06/2024 5:14 PM EST PDMP website checked and validated. All prescriptions have been APPROPRIATELY filled. No suspiciousactivity was identified. 09/06/2024 by Darien Gudino MD * Telephone Encounter - Carol Eden LPN - 09/06/2024 4:28 PM EST Prescription Refill Information The patient has been identified by name and date of : Yes Caregiver verified no other encounters exist for this prescription request: Yes The last office visit in the department: 06/15/24 Assessment and Plan: ASSESSMENT/PLAN: 1. Obstructive sleep apnea (adult) (pediatric) - ICD9: 327.23, ICD10: G47.33 (primary diagnosis) Inconsistent histories as to why not using and how long not using. I do not have a download available for review that shows use in the past 90 days. Encouraged patient restart and use PAP nightly so long as device is still functioning. If not she is to contact us. Encouraged weight loss. Reminded pt to clean and replace equipment regularly. 2. Encounter for long-term (current) use of medications - ICD9: V58.69, ICD10: Z79.899 Due to long time use of Lyrica. Note we are not Rx but pt also on Xanax through outside provider. Appears for anxiety. Note that pt insomnia based on sleep-wake time preference (circadian). Pt provides inconsistent history as to how much Xanax taking vs that Rx'd - see above. 3. Neuropathy - ICD9: 355.9, ICD10: G62.9 4. Restless legs syndrome - ICD9: 333.94, ICD10: G25.81 Appears stable so long as on Lyrica and Keppra and taking as Rx'd. Note that Lyrica has not been just recenlty refilled due to lack of follow ups. Now back, on and restarting, but needs to be renal dosed at 75mg BID. SE and ADRs again reviewed with pt. 5. Recurrent falls - ICD9: V15.88, ICD10: R29.6 6. Balance problems - ICD9: 781.99, ICD10: R26.89 Etiology unclear. Again, inconsistent histories above. Need to get hospital records for review. Medrecords suggest no LOC. Was on AEDs at time of event. Will consider further workup once can review all med records as do not want to repeat testing. Consider EEG. Consider cardiac workup. However these may have been completed. Also question if pt taking meds different than Rx'd based on Xanax history above. 7. Nonintractable episodic headache, unspecified headache type - ICD9: 784.0, ICD10: R51.9 Stable at present. On both Lyrica and Keppra as preventative. See dosing above. Again, pt poor historian, and presents with multiple complaints associated with recent hospitalization. Will attempt to obtain records and have pt follow up in 4 weeks to determine if further workup necessary. Darien Gudino MD Does the patient have a future office visit with this provider/department: NO Requested Prescriptions Pending Prescriptions Disp Refills pregabalin (LYRICA) 75 mg capsule 180 capsule 0 Sig: Take 1 capsule by mouth two times a day for 90 days. Carol Eden LPN September 06, 2024 4:28 PM * Telephone Encounter - Hiral Moon RN - 09/06/2024 2:32 PM EST Patient wants Dr. Gudino to know, since lyrica was decrease from 150 mg bid to 75 mg bid, since Thanksgiving she has been getting lightning taylor pain in left hand/thumb/forefinger, middle finger- happens all day long. Use to only happen at night. Varies how long the pain lasts. After the pain the fingers feel numb for a while. Patient reports this didn't happen during the day when she took 150 mg bid. Pt also wants provider to know she has a Schnauzer training dog that is training at the [employer] [place] to be her service dog. Please advise patient. [facility] Telephone encounter Note * Telephone Encounter - Carol Eden LPN - 09/06/2024 4:28 PM EST Prescription Refill Information The patient has been identified by name and date of : Yes Caregiver verified no other encounters exist for this prescription request: Yes The last office visit in the department: 06/15/24 Assessment and Plan: ASSESSMENT/PLAN: 1. Obstructive sleep apnea (adult) (pediatric) - ICD9: 327.23, ICD10: G47.33 (primary diagnosis) Inconsistent histories as to why not using and how long not using. I do not have a download available for review that shows use in the past 90 days. Encouraged patient restart and use PAP nightly so long as device is still functioning. If not she is to contact us. Encouraged weight loss. Reminded pt to clean and replace equipment regularly. 2. Encounter for long-term (current) use of medications - ICD9: V58.69, ICD10: Z79.899 Due to long time use of Lyrica. Note we are not Rx but pt also on Xanax through outside provider. Appears for anxiety. Note that pt insomnia based on sleep-wake time preference (circadian). Pt provides inconsistent history as to how much Xanax taking vs that Rx'd - see above. 3. Neuropathy - ICD9: 355.9, ICD10: G62.9 4. Restless legs syndrome - ICD9: 333.94, ICD10: G25.81 Appears stable so long as on Lyrica and Keppra and taking as Rx'd. Note that Lyrica has not been just recenlty refilled due to lack of follow ups. Now back, on and restarting, but needs to be renal dosed at 75mg BID. SE and ADRs again reviewed with pt. 5. Recurrent falls - ICD9: V15.88, ICD10: R29.6 6. Balance problems - ICD9: 781.99, ICD10: R26.89 Etiology unclear. Again, inconsistent histories above. Need to get hospital records for review. Medrecords suggest no LOC. Was on AEDs at time of event. Will consider further workup once can review all med records as do not want to repeat testing. Consider EEG. Consider cardiac workup. However these may have been completed. Also question if pt taking meds different than Rx'd based on Xanax history above. 7. Nonintractable episodic headache, unspecified headache type - ICD9: 784.0, ICD10: R51.9 Stable at present. On both Lyrica and Keppra as preventative. See dosing above. Again, pt poor historian, and presents with multiple complaints associated with recent hospitalization. Will attempt to obtain records and have pt follow up in 4 weeks to determine if further workup necessary. Darien Gudino MD Does the patient have a future office visit with this provider/department: NO Requested Prescriptions Pending Prescriptions Disp Refills pregabalin (LYRICA) 75 mg capsule 180 capsule 0 Sig: Take 1 capsule by mouth two times a day for 90 days. Carol Eden LPN September 06, 2024 4:28 PM [facility]01-16-2025 Telephone encounter Note* Telephone Encounter - Hiral Moon RN - 09/06/2024 2:32 PM EST Patient wants Dr. Gudino to know, since lyrica was decrease from 150 mg bid to 75 mg bid, since Thanksgiving she has been getting lightning taylor pain in left hand/thumb/forefinger, middle finger- happens all day long. Use to only happen at night. Varies how long the pain lasts. After the pain the fingers feel numb for a while. Patient reports this didn't happen during the day when she took 150 mg bid. Pt also wants provider to know she has a Schnauzer training dog that is training at the [employer] [place] to be her service dog. Please advise patient. [facility]11-04-2024 Telephone encounter Note* Telephone Encounter - Liu Esquivel OCCA - 06/25/2024 9:54 AM EST Office visit notes faxed to Dr. Peoples's office as requested. MAYCOL Sotomayor [facility]11-04-2024 Telephone encounter Note* Telephone Encounter - Liu Esquivel OCCA - 06/25/2024 9:54 AM EST Images from the original note were not included. Darien Gudino Jr., MD [facility] Nurse Please send not to PCP. [facility]11-04-[facility] Miscellaneous Notes* Telephone Encounter - Liu Esquivel OCCA - 06/25/2024 9:54 AM EST Office visit notes faxed to Dr. Peoples's office as requested. MAYCOL Sotomayor * Telephone Encounter - Liu Esquivel OCCA - 06/25/2024 9:54 AM EST Images from the original note were not included. Darien Gudino Jr., MD [facility] Nurse Please send not to PCP. [facility] Telephone encounter Note * Telephone Encounter - Carol Eden LPN - 06/19/2024 12:24 PM EDT Patient notified medication was sent to pharmacy [facility]10[facility] Miscellaneous Notes* Telephone Encounter - Carol Eden LPN - 06/19/2024 12:24 PM EDT Patient notified medication was sent to pharmacy * Telephone Encounter - Darien Gudino Jr., MD - 06/19/2024 10:52 AM EDT Will send refill today with lab results now back. Thank you. Darien Gudino MD * Telephone Encounter - Liu Esquivel OCCA - 06/18/2024 11:20 AM EDT TC to [facility] who states last filled Lyrica was on 05/27 for 75 mg, 2 capsules BID for a quantity of 20. Patient will need a refill. Pended for provider if agreeable. MAYCOL Sotomayor * Telephone Encounter - Eva Prado LPN - 06/18/2024 10:56 AM EDT Patient calling she had appt on 06/15/[address] Gudino was going to send a rx for her Pregabalin 150 mg one capsule twice daily to the pharmacy. She said [facility] not [facility] rx. She said she is not sleeping at night due to pain. Please advise [facility] Telephone encounter Note * Telephone Encounter - Darien Gudino Jr., MD - 06/19/2024 10:52 AM EDT Will send refill today with lab results now back. Thank you. Darien Gudino MD [facility]10-[facility] Telephone encounter Note* Telephone Encounter - Liu Esquivel OCCA - 06/18/2024 11:20 AM EDT [facility] who states last filled Lyrica was on 05/27 for 75 mg, 2 capsules BID for a quantity of 20. Patient will need a refill. Pended for provider if agreeable. MAYCOL Sotomayor [facility]10-[facility] Telephone encounter Note* Telephone Encounter - Eva Prado LPN - 06/18/2024 10:56 AM EDT Patient calling she had appt on 06/15/[address] Gudino was going to send a rx for her Pregabalin 150 mg one capsule twice daily to the pharmacy. She said [facility] not [facility] the rx. She said she is not sleeping at night due to pain. Please advise [facility]10-25-[facility] NoteHNO ID: [id number] Author: DARIEN GUDINO JR, MD Service: ? Author Type: Physician Type: Progress Notes Filed: 2024 21:50 Note Text: ESTABLISHED PATIENT VISIT CHIEF COMPLAINT: Follow Up HISTORY OF PRESENT ILLNESS: Rajwinder Wylie is a 73 year old female, BMI 31.3 kg/m2 with a PMH significant for and per last office visit of 09/19/23: 1. Degeneration of lumbar or lumbosacral intervertebral disc - ICD9: 722.52, ICD10: M51.37 (primary diagnosis) - CONSULT TO PAIN MGT Patient missed appt with Dr. Valencia secondary to virus. Will place a new consult. No significant central canal stenosis but reports pain in lumbar spine (non radiating) limiting her ability to function on many days. Will continue Lyrica which is being used for other disorders as well. 2. Obstructive sleep apnea (adult) (pediatric) - ICD9: 327.23, ICD10: G47.33 PAP device note working. Order placed to DME to either repair or if necessary get pt new PAP equipment. Prior to recent virus and infection, pt had been compliant with control of AHI on current settings. Advised pt to also reach out to DME. Advised pt not to drive or operate heavy machinery if sleepy. 3. Nonintractable episodic headache, unspecified headache type - ICD9: 784.0, ICD10: R51.9 Asx on the following (as dosed above). - LEVETIRACETAM ER 750 MG TABLET,EXTENDED RELEASE 24 HR (QDaily) (Note pt does not feel Keppra is exacerbating anxiety) - PREGABALIN 150 MG CAPSULE (BID) 4. Neuropathy - ICD9: 355.9, ICD10: G62.9 Asx on the following (as dosed above). - LEVETIRACETAM ER 750 MG TABLET,EXTENDED RELEASE 24 HR - PREGABALIN 150 MG CAPSULE 5. RLS (restless legs syndrome) - ICD9: 333.94, ICD10: G25.81 Asx on the following (as dosed above). - LEVETIRACETAM ER 750 MG TABLET,EXTENDED RELEASE 24 HR - PREGABALIN 150 MG CAPSULE Pt has not followed up since. During interim, episode of loc in shower resulting in hospital stay. [place] due to sepsis but reported possible seizure as well with pt reportedly biting off tongue. We do not have records for review. Never started on seizure medication at that time but was already on Lyrica and Keppra for neuropathy. More recent fall 2 weeks ago for which only evaluated in ER. States not taking Lyrica, despite our Rx'ing and confirm received by pharmacy. Last filled 05/27/24 per PDMP. Pt also appearing to be on higher dose of Xanax now. No longer using PAP as states when in rehab, her brother threw it away. Regarding events early this year, states she was in septic coma for 4 days and has no memory of anything. Was then in [facility]. States had to learn how to walk again. Out of [place] the first of February. States 3 days ago found a box that someone put in the trash that has her PAP in it. Thus, still has device. States when in [facility] had no PAP device. When asked about meds, states Lyrica was decreased to 75mg BID, but unknown if due to renal issues. States on Xanax taking 1mg at night. Has Rx for 90 tabs monthly but states only taking 2 at night. States psychiatry tried to change to Remeron but keeping pt awake. Per ER note from 10/12/23 that is when pt was admitted to hospital, indicates pt with fall, states hit her head, pain in r should and keen. Did not think loc. Did bite her tongue when falling. Dx YOON, fx of proximal R humerus, hypernatremia, leukocytosis, Rhabdo, fall. Pt states that documentation not correct. Pt was encephalopathic at time of hospital stay, but no mention of coma. Pt with additional fall 2 weeks ago I shower - slipped and fell. Pt Lyrica dose lowered to 75mg BID, but pt reports taking 150mg BID. Do not have recent Cr level. While ER report inidcated hypernatremia, the hospitalist note reports hypoatremia. Pt still has PAP and should still function per pt. Still feels Keppra helps neuropathy and RLS. States is a night owl and will be up until 3AM. States RLS starts up late at night when resting in recliner and once in bed. Neuropathy present all day. Note pt also on Venlafaxine in AM (should also help neuropathy). For rheum d/o starting biologic infusion next week. Limited function of RUE as needing shoulder surgery. States when hit head gets headaches, but none of late. Headache always on left side. Pt reporting occasional dizziness with weather change. No definite vertigo. Pt states upset with ENT - unclear why. Reports that we told her that there was something wrong with her ear canal on brain imaging but cannot find record of this. Workup in multiple neuro notes indicates pt following with ENT for Meniere's evaluation. REVIEW OF SYSTEMS GENERAL:No weight loss, malaise or fevers. HEENT:Negative for frequent or significant headaches, No changes in hearing or vision, no nose bleeds or other nasal problems NECK:Negative for lumps, goiter, pain and significant neck swelling RESPIRATORY: Negative for cough, wheezing or shortness of breath. CARDIOVASCULA (more content not included)...[facility]10-25-2024 History of Present illness Narrative* Darien Gudino Jr., MD - 06/15/2024 10:35 AM EDT ESTABLISHED PATIENT VISIT CHIEF COMPLAINT: Follow Up HISTORY OF PRESENT ILLNESS: Rajwinder Wylie is a 73 year old female, BMI 31.3 kg/m2 with a PMH significant for and per last office visit of 09/19/23: 1. Degeneration of lumbar or lumbosacral intervertebral disc - ICD9: 722.52, ICD10: M51.37 (primarydiagnosis) - CONSULT TO PAIN MGT Patient missed appt with Dr. Valencia secondary to virus. Will place a new consult. No significant central canal stenosis but reports pain in lumbar spine (non radiating) limiting her ability to functionon many days. Will continue Lyrica which is being used for other disorders as well. 2. Obstructive sleep apnea (adult) (pediatric) - ICD9: 327.23, ICD10: G47.33 PAP device note working. Order placed to DME to either repair or if necessary get pt new PAP equipment. Prior to recent virus and infection, pt had been compliant with control of AHI on current settings. Advised pt to also reach out to DME. Advised pt not to drive or operate heavy machinery if sleepy. 3. Nonintractable episodic headache, unspecified headache type - ICD9: 784.0, ICD10: R51.9 Asx on the following (as dosed above). - LEVETIRACETAM ER 750 MG TABLET,EXTENDED RELEASE 24 HR (QDaily) (Note pt does not feel Keppra is exacerbating anxiety) - PREGABALIN 150 MG CAPSULE (BID) 4. Neuropathy - ICD9: 355.9, ICD10: G62.9 Asx on the following (as dosed above). - LEVETIRACETAM ER 750 MG TABLET,EXTENDED RELEASE 24 HR - PREGABALIN 150 MG CAPSULE 5. RLS (restless legs syndrome) - ICD9: 333.94, ICD10: G25.81 Asx on the following (as dosed above). - LEVETIRACETAM ER 750 MG TABLET,EXTENDED RELEASE 24 HR - PREGABALIN 150 MG CAPSULE Pt has not followed up since. During interim, episode of loc in shower resulting in hospital stay. [place] due to sepsis but reported possible seizure as well with pt reportedly biting off tongue. We donot have records for review. Never started on seizure medication at that time but was already on Lyrica and Keppra for neuropathy. More recent fall 2 weeks ago for which only evaluated in ER. States not taking Lyrica, despite our Rx'ing and confirm received by pharmacy. Last filled 05/27/24 per PDMP. Pt also appearing to be on higher dose of Xanax now. No longer using PAP as states when in rehab, her brother threw it away. Regarding events early this year, states she was in septic coma for 4 days and has no memory of anything. Was then in [facility]. States had to learn how to walk again. Out of [place] the first of February. States 3 days ago found a box that someone put in the trash that has her PAP in it. Thus, still has device. States when in [facility] had no PAP device. When asked about meds, states Lyrica was decreased to 75mg BID, but unknown if due to renal issues. States on Xanax taking 1mg at night. Has Rx for 90 tabs monthly but states only taking 2 at night. States psychiatry tried to change to Remeron but keeping pt awake. Per ER note from 10/12/23 that is when pt was admitted to hospital, indicates pt with fall, states hit her head, pain in r should and keen. Did not think loc. Did bite her tongue when falling. Dx YOON,fx of proximal R humerus, hypernatremia, leukocytosis, Rhabdo, fall. Pt states that documentation not correct. Pt was encephalopathic at time of hospital stay, but no mention of coma. Pt with additional fall 2 weeks ago I shower - slipped and fell. Pt Lyrica dose lowered to 75mg BID, but pt reports taking 150mg BID. Do not have recent Cr level. While ER report inidcated hypernatremia, the hospitalist note reports hypoatremia. Pt still has PAP and should still function per pt. Still feels Keppra helps neuropathy and RLS. States is a night owl and will be up until 3AM. States RLS starts up late at night when resting in recliner and once in bed. Neuropathy present all day. Note pt also on Venlafaxine in AM (should also help neuropathy). For rheum d/o starting biologic infusion next week. Limited function of RUE as needing shoulder surgery. States when hit head gets headaches, but none of late. Headache always on left side. Pt reporting occasional dizziness with weather change. No definite vertigo. Pt states upset with ENT - unclear why. Reports that we told her that there was something wrong with her ear canal on brain imaging but cannot find record of this. Workup in multiple neuro notes indicates pt following with ENT for Meniere's evaluation. REVIEW OF SYSTEMS GENERAL:No weight loss, malaise [...] history of dysuria, frequency or incontinence MUSCULOSKELETAL: Chronic low back pain. Chronic R shoulder pain. NEUROLOGIC:See HPI. SKIN:Negative for lesions, rash, and itching. PSYCHIATRIC: See HPI. HEMATOLOGIC/LYMPHATIC/IMMUNOLOGIC:Negative for prolonged bleeding, bruising easily or swollen [...] Calcium (mg/dL) Date Value 01/09/2018 9.4 MEDICATIONS: montelukast (SINGULAIR) 10 mg tablet TAKE 1 TABLET DAILY AT BEDTIME cevimeline (EVOXAC) 30 mg capsule three times a day. glipiZIDE (GLUCOTROL XL) 5 mg 24 hr tablet once daily. meclizine (ANTIVERT) 25 mg tab two times a day. metoprolol tartrate, short acting, (LOPRESSOR) 25 mg tablet once daily. ondansetron (ZOFRAN) 4 mg tablet as needed for nausea/vomiting. fluticasone-salmeterol (ADVAIR DISKUS) 500-50 mcg/dose dsdv Inhale 1 Puff as instructed twice daily. guaiFENesin (MUCINEX) 600 mg 12 hr tablet Take 1 tablet by mouth twice daily. Mucus Clearing Device jeannine Provide 1 mucus clearing device. albuterol HFA (PROAIR HFA) 90 mcg/actuation inhaler Inhale 2 Puffs as instructed every 4 hours as needed for wheezing/shortness of breath. JARDIANCE 10 mg tablet Take 10 mg by mouth once daily. potassium chloride 20 mEq TbER Take 1 tablet by mouth once daily. atorvastatin (LIPITOR) 20 mg tablet Take 20 mg by mouth once daily. leflunomide (ARAVA) 20 mg tablet Take 20 mg by mouth once daily. Nebulizer Accessories kit Provide nebulizer kit. Nebulizer and Compressor For Neb Provide nebulizer. predniSONE (DELTASONE) 10 mg tablet 2 DAILY FOR 1 WEEK THEN 1 TAB DAILY FOR 1 WEEK. KEEP REMAINDER ON HAND FOR FUTURE FLARES venlafaxine ER (EFFEXOR XR) 150 mg 24 hr capsule 300 mg once daily. fluticasone (FLONASE) 50 mcg/actuation nasal spray Use 1 [place] in each nostril once daily. losartan (COZAAR) [...] mg by mouth at bedtime as needed. levETIRAcetam ER (KEPPRA XR) 750 mg 24 hr tablet Take 1 tablet by mouth once daily. pregabalin (LYRICA) 150 mg capsule Take 1 capsule by mouth two times a day for 90 days. Atomoxetine 80 mg capsule once daily. TRULICITY 1.5 mg/0.5 mL pen injector one time a week. (Patient not taking: Reported on 09/19/2023) Etanercept (ENBREL SURECLICK) 50 mg/mL (1 mL) one time a week. (Patient not taking: Reported on 09/19/2023) albuterol (PROVENTIL) 2.5 mg /3 mL (0.083 %) nebulizer solution USE 3 ML VIA NEBULIZER EVERY 6 HOURS NEED OVER 5-15 MINUTES FOR WHEEZING AND SHORTNESS OF BREATH (Patient not taking: Reported on 07/20/2023) ipratropium (ATROVENT) 0.02 % nebulizer solution Use 2.5 mL via nebulizer four times daily as needed for wheezing/shortness of breath. OVER 5-15 MINUTES FOR WHEEZING OR SHORTNESS OF BREATH CPAP In-line filter - Respironics Device. Lifetime supplies. (Patient not taking: Reported on 06/15/2024) CPAP Please set at 10-20 cmH2O with humidity with download to us in 4 weeks. Also please provide mask fitting (dreamwear under the nose nasal mask). (Patient not taking: Reported on 06/15/2024) CPAP Please eval pts machine as not providing downloads. If you can get download please send us copy. Also please provided mask fitting as pts mask leaking. (Patient not taking: Reported on 09/19/2023) ipratropium (ATROVENT) 0.02 % nebulizer solution Use 2.5 mL via nebulizer one time only for 1 dose.OVER 5-15 MINUTES FOR WHEEZING OR SHORTNESS OF BREATH HISTORIES PAST MEDICAL HISTORY Diagnosis Date Asthma First degree heart block 05/16/2013 Outside post 11 follow-up screening, 2012. Hypertension 05/16/2013 Lyme disease Meniere disease Obesity 05/16/2013 SANTHOSH (obstructive sleep apnea) 05/16/2013 CPAP 11. Claims to be CPAP compliant. RA (rheumatoid arthritis) ([facility]) 2013 Sinus arrhythmia 05/16/2013 Outside post 05-02 follow-up screening, 2012. Sinusitis Sjogren's disease ([facility]) FAMILY HISTORY Problem Relation Age of Onset Diabetes Mother Onset age 18, age 81. Heart disease Mother 2 valve surgeries. Cancer Father 82 Esophageal cancer Heart Brother Atrial fib. Cancer Paternal Grandmother Lung, mets to brain. SOCIAL HISTORY Social History Tobacco Use Smoking status: Former Current packs/day: 0.00 Average packs/day: 1 pack/day for 10.0 years (10.0 ttl pk-yrs) Types: Cigarettes Start date: 08/22/1971 Quit date: 08/22/1981 Years since quittin.8 Smokeless tobacco: Never Tobacco comments: No smoking in childhood home. Quit cold turkey. No current household ETS smoking, 02/12/19. Vaping Use Vaping status: Never Used Substance Use Topics Alcohol use: Yes Comment: Very occasional, once a month or less. TO 05/21/2014. Drug use: No PHYSICAL EXAMINATION BP 129/68 (BP Site: Left Arm, BP Position: Sitting) Pulse 66 Resp 18 Wt 86.6 kg (191 lb) SpO2 96% BMI 31.30 kg/m GENERAL EXAM: General appearance: NAD, pleasant. HEENT: NC/AT, nasal congestion absent, no oral lesions, membranes moist. NECK: No masses, supple. Lungs: CTA bilaterally. CV: RRR nl S1, S2. Extr: No cyanosis, clubbing or edema. Skin: Cool to touch. NEUROLOGICAL EXAM: General: Awake, alert, oriented x3 (person,place,time), fluent, no dysarthria; comprehension, naming, repetition intact. CN: PERRL, fundi with no evidence of papilledema, EOMI and without nystagmus, VFF to confrontation,facial sensation and strength are normal and symmetric, hearing is intact to finger rub bilaterally, palate and tongue movements are intact and symmetric. SCM and trapezius strength normal. Motor: Normal tone, bulk and strength (5/5) bilaterally (throughout extremities x4) EXCEPT proximalRUE which patient guards due to pain. Coordination: FNF, CHUNG, HTS intact. No tremors. Sensation: Light touch, vibration, temperature intact throughout. No evidence of neglect. Gait: Stable with normal stride and arm swing. Assessment and Plan: ASSESSMENT/PLAN: 1. Obstructive sleep apnea (adult) (pediatric) - ICD9: 327.23, ICD10: G47.33 (primary diagnosis) Inconsistent histories as to why not using and how long not using. I do not have a download available for review that shows use in the past 90 days. Encouraged patient restart and use PAP nightly so long as device is still functioning. If not she is to contact us. Encouraged weight loss. Reminded pt to clean and replace equipment regularly. 2. Encounter for long-term (current) use of medications - ICD9: V58.69, ICD10: Z79.899 Due to long time use of Lyrica. Note we are not Rx but pt also on Xanax through outside provider. Appears for anxiety. Note that pt insomnia based on sleep-wake time preference (circadian). Pt provides inconsistent history as to how much Xanax taking vs that Rx'd - see above. 3. Neuropathy - ICD9: 355.9, ICD10: G62.9 4. Restless legs syndrome - ICD9: 333.94, ICD10: G25.81 Appears stable so long as on Lyrica and Keppra and taking as Rx'd. Note that Lyrica has not been just recenlty refilled due to lack of follow ups. Now back, on and restarting, but needs to be renal dosed at 75mg BID. SE and ADRs again reviewed with pt. 5. Recurrent falls - ICD9: V15.88, ICD10: R29.6 6. Balance problems - ICD9: 781.99, ICD10: R26.89 Etiology unclear. Again, inconsistent histories above. Need to get hospital records for review. Medrecords suggest no LOC. Was on AEDs at time of event. Will consider further workup once can review all med records as do not want to repeat testing. Consider EEG. Consider cardiac workup. However these may have been completed. Also question if pt taking meds different than Rx'd based on Xanax history above. 7. Nonintractable episodic headache, unspecified headache type - ICD9: 784.0, ICD10: R51.9 Stable at present. On both Lyrica and Keppra as preventative. See dosing above. Again, pt poor historian, and presents with multiple complaints associated with recent hospitalization. Will attempt to obtain records and have pt follow up in 4 weeks to determine if further workup necessary. Darien Gudino MD I spent a total of 40+ minutes on the date of the service which included preparing to see the patient, [id number] patient care, completing clinical documentation, obtaining and/or reviewing separately obtained history, performing a medically appropriate examination, counseling and educating the pa tient/family/caregiver, ordering medications, tests, or procedures, and communicating results to the patient/family/caregiver. PDMP website checked and validated. All prescriptions have been APPROPRIATELY filled. No suspiciousactivity was identified. 06/15/2024 by Darien Gudino MD [facility] Telephone encounter Note * Telephone Encounter - Darien Gudino Jr., MD - 04/26/2024 2:28 PM EDT Appears pt has not filled Lyrica since 12/2023 on PDMP review and has not seen use in well over 6 months. As this is a controlled med, she needs to get through those last providing rx until sees us. Darien Gudino MD [facility]09-05-2024 Miscellaneous Notes* Telephone Encounter - Darien Gudino Jr., MD - 04/26/2024 2:28 PM EDT Appears pt has not filled Lyrica since 12/2023 on PDMP review and has not seen use in well over 6 months. As this is a controlled med, she needs to get through those last providing rx until sees us. Darien Gudino MD * Telephone Encounter - Jessica Victor LPN - 04/25/2024 3:32 PM EDT TC to pt who states she has been taking lyrica while in the snf. Pt is scheduled with [facility] on 05/15/24 and is requesting a refill until her appointment. Jessica Victor LPN * Telephone Encounter - Darien Gudino Jr., MD - 04/25/2024 8:51 AM EDT Please arrange sooner follow up with neurology ROCHELLE to review diagnosis and determine appropriateness of medications at this time. Darien Gudino MD * Telephone Encounter - Katherine Townsend LPN - 04/24/2024 2:17 PM EDT Pt reports reason she has not ordered for a while is In [facility] 2023 she was found unconscious in her home and was out for a couple days. She was taken to [facility] because she had bit off 1/2 of her tongue. Pt was told she must of had a seizure. She was then taken to [facility] where she was for several months. Pt almost out of medication and requesting refill. The patient has been identified by name and date of : Yes Caregiver verified no other encounters exist for this prescription request: Yes Caregiver confirmed with patient/requestor that no other refills are due, in the near future, with this provider at this time: Yes The last office visit in the department: 09/19/2023 Does the patient have a future office visit with this provider/department: Yes 06/11/2024 Requested Prescriptions Pending Prescriptions Disp Refills pregabalin (LYRICA) 150 mg capsule 180 capsule 0 Sig: Take 1 capsule by mouth two times a day for 90 days. Katherine Townsend LPN April 24, 2024 2:20 PM documented in [facility]09-[facility] Telephone encounter Note * Telephone Encounter - Jessica Victor LPN - 04/25/2024 3:32 PM EDT TC to pt who states she has been taking lyrica while in the snf. Pt is scheduled with on 05/15/24 and is requesting a refill until her appointment. Jessica Victor LPN [facility]-04-[facility] Telephone encounter Note* Telephone Encounter - Darien Gudino Jr., MD - 04/25/2024 8:51 AM EDT Please arrange sooner follow up with neurology ROCHELLE to review diagnosis and determine appropriateness of medications at this time. Darien Gudino MD [facility]09-03-[facility] Telephone encounter Note* Telephone Encounter - Katherine Townsend LPN - 04/24/2024 2:17 PM EDT Pt reports reason she has not ordered for a while is In [facility]2023 she was found unconscious in her home and was out for a couple days. She was taken to [facility] because she had bit off 1/2 of her tongue. Pt was told she must of had a seizure. She was then taken to [facility] where she was for several months. Pt almost out of medication and requesting refill. The patient has been identified by name and date of : Yes Caregiver verified no other encounters exist for this prescription request: Yes Caregiver confirmed with patient/requestor that no other refills are due, in the near future, with this provider at this time: Yes The last office visit in the department: 09/19/2023 Does the patient have a future office visit with this provider/department: Yes 06/11/2024 Requested Prescriptions Pending Prescriptions Disp Refills pregabalin (LYRICA) 150 mg capsule 180 capsule 0 Sig: Take 1 capsule by mouth two times a day for 90 days. Katherine Townsend LPN April 24, 2024 2:20 PM [facility] Telephone encounter Note* Telephone Encounter - Darien Gudino Jr., MD - 02/03/2024 6:44 PM EDT The patient is taking Keppra for pain and not for epilepsy. There is no need to be concerned with its level. Darien Gudino MD [facility] Miscellaneous Notes* Telephone Encounter - Darien Gudino Jr., MD - 02/03/2024 6:44 PM EDT The patient is taking Keppra for pain and not for epilepsy. There is no need to be concerned with its level. Darien Gudino MD * Telephone Encounter - Siena Junior RN - 02/03/2024 4:18 PM EDT Diana with [facility] calling with an update for Dr. Gudino, regarding patient. Patient's scheduled total shoulder replacement surgery was cancelled due to a foot infection. Pre-op labs indicated a low keppra level for patient and ortho provider wanted Dr. Gudino notified of this. No call back is needed. Thank you. documented in [facility]06-14-[facility]24 Telephone encounter Note * Telephone Encounter - Siena Junior RN - 02/03/2024 4:18 PM EDT Diana with [facility] calling with an update for Dr. Gudino, regarding patient. Patient's scheduled total shoulder replacement surgery was cancelled due to a foot infection. Pre-op labs indicated a low keppra level for patient and ortho provider wanted Dr. Gudino notified of this. No call back is needed. Thank you. [facility]04-25-[facility] Telephone encounter Note* Telephone Encounter - Julisa Townsend LPN - 12/15/2023 4:52 PM EDT Faxed [employer] CPAP compliance request. Julisa Townsend LPN [facility]04-25-2024 Miscellaneous Notes* Telephone Encounter - Julisa Townsend LPN - 12/15/2023 4:52 PM EDT Faxed [employer] CPAP compliance request. Julisa Townsend LPN documented in this encounterM[facility]03-04-2024 Miscellaneous Notes* Telephone Encounter - Jessica Victor LPN - 10/24/2023 3:39 PM EST TC to Becky to let her know pt was on medication for headache prevention. Becky states pt fell recently and hit her head and she thought it was a medication prescribed to her after that. I pulled records from for review and advised if we needed to change something we would let her know. Pt currently at [facility]. Jessica Victor LPN * Telephone Encounter - Darien Gudino Jr., MD - 10/24/2023 1:11 PM EST Pt not on Keppra XR 750mg daily for seizures. This is for KIDD prophylaxis and neuropathic pain. There is no need to check these levels unless concern that they would be supratherapeutic. 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 calls to report that Keppra Level on patient is low at 4.7. Patient is currently taking Keppra [address] Beck[address] asking Dr. Gudino if he would recommend any change to current dose of Keppra. Becky requests call back on cell phone at [phone]. Therese Mckee, BROWN documented in this encounterM[facility]02-27-2024 Consult note Author Jorje Burrows [facility] October 18, 2023 1:33pm Note Date/Time October 18, 2023 1:33pm [facility] Medical Records Department [address] [place] [address] Counseling Note - Pharmacy 10/18/23 1333 MR#: [id number] Acct: [id number] Name: RAJWINDER WYLIE Rep #:[id number] : 1950 73 From: Jorje Burrows PCP: Dr. Ruel Peoples MD Status: ADM IN Location: [place] [address] Med Reconciliation Pharmacy Service has performed discharge medication reconciliation for this patient. The patient's discharge medication list was reviewed for discrepancies and discrepancies were resolved. Medications at Discharge Home Medications fluticasone 500 mcg-salmeterol 50 mcg/dose blistr powdr for inhalation (Advair Diskus) 1 puff inhalation BID shortness of breath 01/23/15 albuterol sulfate 90 mcg/actuation aerosol inhaler (ProAir HFA) 1 - 2 puff inhalation Q4H PRN Asthma 04/15/15 montelukast 10 mg tablet 10 mg PO QHS allergies 04/15/15 amlodipine 10 mg tablet 10 mg PO DAILY blood pressure 05/28/15 atorvastatin 20 mg tablet 20 mg PO QHS cholesterol 09/23/22 citalopram 40 mg tablet 40 mg PO QHS sleep 09/23/22 empagliflozin 10 mg tablet (Jardiance) 10 mg PO DAILY diabetes 09/23/22 glipizide 5 mg tablet, extended release 24 hr 5 mg PO DAILY diabetes 09/23/22 hydrochlorothiazide 12.5 mg tablet 12.5 mg PO DAILY blood pressure 09/23/22 leflunomide 20 mg tablet 20 mg PO DAILY inflammation 09/23/22 levetiracetam 750 mg tablet,extended release 24 hr 750 mg PO DAILY seizures 09/23/22 losartan 100 mg tablet 100 mg PO QHS blood pressure 09/23/22 metformin 500 mg tablet 500 mg PO DAILY diabetes 09/23/22 ondansetron HCl 4 mg tablet 4 mg PO Q8H PRN Nausea 09/23/22 potassium chloride 20 mEq tablet,extended release 20 meq PO DAILY potassium 09/23/22 pregabalin 75 mg capsule (Lyrica) 75 mg PO DAILY pain 09/23/22 quetiapine 100 mg tablet 200 mg PO QHS mood disorder 09/23/22 tiotropium bromide 2.5 mcg/actuation mist for inhalation (Spiriva Respimat) 2 puff inhalation DAILY shortness of breath 09/23/22 meclizine 25 mg tablet 25 mg PO BID dizziness 11/26/22 alprazolam 0.5 mg tablet 0.5 mg PO DAILY PRN Anxiety 12/15/22 atomoxetine 80 mg capsule 80 mg PO DAILY attention 12/15/22 venlafaxine 150 mg capsule,extended release 24 hr 300 mg PO DAILY mood 12/15/22 aspirin 81 mg tablet,delayed release (Adult Low Dose Aspirin) 81 mg PO DAILY heart 01/06/23 guaifenesin 600 mg tablet, extended release 12 hr (Mucinex) 600 mg PO BID PRN congestion 04/29/23 metoprolol tartrate 25 mg tablet 25 mg PO BID blood pressure #60 tabs 04/29/23 prednisone 20 mg tablet 5 mg PO DAILY PRN pain 04/29/23 furosemide 40 mg tablet 40 mg PO DAILY PRN edema #30 tabs 06/24/23 alprazolam 0.5 mg tablet 1 mg PO QHS anxiety/sleep 10/12/23 clopidogrel 75 mg tablet (Plavix) 75 mg PO DAILY blood thinner 10/12/23 fluticasone propionate 50 mcg/actuation nasal spray,suspension 1 spray intranasal DAILY PRN allergy symptoms 10/12/23 oxycodone 5 mg tablet 5 mg PO Q4H PRN PRN Pain Score 4-10 3 days #18 tabs 10/18/23 10/18/23 1333 <Electronically signed by Jorje tadeo> Date _ Jorje Schultz Signature (if applicable): Date CC: ~ Signed [facility] Work Phone: 1(558) 156-983502-27-2024 Discharge summary Author Viry Boyce [facility] October 18, 2023 1:05pm Note Date/Time October 18, 2023 1:05pm [facility] Medical Records Department [address] [place] [address] Transfer to [facility] Care MR#: [id number] Acct: [id number] Name: RAJWINDER WYLIE Rep #:[id number] : 1950 73 From: Viry Boyce MD PCP: Dr. Ruel Peoples MD Status: ADM IN Certification of patient admission REQUIRED AT TIME OF ADMISSION. I CERTIFY THAT POST-HOSPITAL ECF SERVICES ARE REQUIRED TO BE GIVEN ON AN IN-PATIENT BASIS BECAUSE OF THE ABOVE NAMED PATIENT'S NEED FOR RESIDENTIAL CARE ON A CONTINUING BASIS FOR THE CONDITION(S) FOR WHICH HE/SHE WAS RECEIVING IN-PATIENT HOSPITAL SERVICES PRIOR TO HIS/HER TRANSFER TO THE F. 10/18/23 1305<Electronically signed by Viry Boyce MD> Diet Diet Order/Speech Therapy: 10/17/23 10:50 Diet: Regular - General Food consistency:: Pureed Liquid Consistency:: Regular/Thin Is pt able to select menu?: No Diet Comments: 1:1 supervision, FEED ONLY WHEN ALERT. no nuts or dairy. Routine Orders/Code Status Enema Type: Fleetz Enema Frequency: Daily PRN Suppository Type: Dulcolax 10mg Suppository Frequency: Daily PRN O2 Frequency: PRN Keep PO Greater than or Equal to (%): 90 Wound(s) tongue: Wound Type: scab left elbow: Wound Type: scabs left buttock: Wound Type: Skin Tear Therapies Weight Bearing: Weight bearing as tolerated Occupational Therapy: Eval and Treat Speech Therapy: Eval and Treat Problem/Diagnosis (1) Rhabdomyolysis: Status: Acute Code(s): M62.82 - Rhabdomyolysis (2) Fracture of proximal end of right humerus: Status: Acute Code(s): S42.201A - Unspecified fracture of upper end of right humerus, initial encounterfor closed fracture (3) Fall: Status: Acute Code(s): W19.XXXA - Unspecified fall, initial encounter Plan #RUE proximal humeral fracture due to mechanical fall * Right upper extremity currently in a sling. * Per orthopedics this is conservative management for now. PT OT on board. * On p.o. Tylenol, p.o. oxycodone and IV morphine as needed for pain. * For precautions. #YOON: resolved. #Hyponatremia:resolved. #Hypokalemia: Potassium is 3.5 today. #UTI: urine culture grew E. coli. Patient on IV ceftriaxone. To complete a 5 daycourse. #History of CAD: S/p stenting 2022. On aspirin and Plavix. Statin was held dueto elevated CPK. #Rhabdomyolysis: resolving with hydration. Will monitor. #Elevated lactic acid: resolved. #SANTHOSH: On BiPAP nightly. #Type 2 diabetes mellitus: On insulin sliding scale. Tactics ACHS. #Seizure disorder: * On Keppra. Patient was noted to have bitten her tongue at the time that she had a fall. It is unclear whether she had a seizure or not then. * hasnt had any overt seizure since admission * stable. * #History of asthma: Breathing treatments bronchodilators. #Rheumatoid arthritis: On leflunomide which is currently on hold on account of YOON. # Hypertension: Blood pressure was very low so BP meds held. Hypotension has resolved. BP meds resumed-amlodipine 10mg daily and metoprolol 25mg bid.. #Mood disorder: On citalopram. Was also on Xanax and dose was decreased on admission. Was also on Effexor which is currently held. On seroquel. DVT prophylaxis: SCDs. Disposition; awaiting placement Allergies/Procedures Done in Hospital Allergies Sulfa (Sulfonamide Antibiotics) Allergy (Verified 10/12/23 13:26) Hives tree nut Allergy (Verified 10/12/23 13:26) Anaphylaxis Rabbit Adverse Reaction (Severe, Verified 10/12/23 13:26) NEEDS FOLLOW-UP sulfamethoxazole [From Bactrim] Adverse Reaction (Severe, Verified 10/12/23 13:26) Skin rashes & blisters trimethoprim [From Bactrim] Adverse Reaction (Severe, Verified 10/12/23 13:26) Skin rashes & blisters codeine Adverse Reaction (Verified 10/12/23 13:26) Other Environmental Allergies: Uncoded Adverse Reaction (Verified 10/12/23 13:26) NEEDS FOLLOW-UP skunk erythromycin base Adverse Reaction (Verified 10/12/23 13:26) Upset Stomach PT REPORTS UPSET STOMACH WITH USE milk [dairy] Adverse Reaction (Verified 10/12/23 13:26) Upset Stomach morphine Adverse Reaction (Verified 10/12/23 13:26) Nausea Type of Care/Length of Stay Estimated LOS: Convalescent Care Less Than 30 days Type of Care Needed: Skilled Rehab Potential: Fair Prognosis: Fair Additional Orders/Day of Discharge Day of Discharge: 10/18/23 Dietary and Speech Recommendations Dietitian Recommendations/Changes: recommend cardiac, 1800 calorie controlled diet - texture/consistency per [employer]; will monitor PO intake, wt, labs, and adjust diet/add ONS as indicated. Discharge Plan Admission Admit Date/Time: 10/12/23 16:33 Primary Reason for Your Visit: right humeral fracture Attending Provider: Viry Boyce Primary Care Provider: Ruel Peoples Consulting Providers: Elayne Baker Instructions Patient Instructions: ED Fracture, Upper Extremity Discharge Orders/Prescriptions Prescriptions: New oxycodone 5 mg Tablet 5 mg PO Q4H PRN PRN (Reason: Pain Score 4-10) 3 Days Qty: 18 0RF Continued meclizine 25 mg tablet 25 mg PO BID hydrochlorothiazide 12.5 mg tablet 12.5 mg PO DAILY citalopram 40 mg tablet 40 mg PO QHS levetiracetam 750 mg tablet extended release 24 hr 750 mg PO DAILY ondansetron HCl 4 mg tablet 4 mg PO Q8H PRN (Reason: Nausea) atorvastatin 20 mg tablet 20 mg PO QHS Spiriva Respimat 2.5 mcg/actuation mist 2 puff inhalation DAILY potassium chloride 20 mEq tablet extended release 20 meq PO DAILY metformin 500 mg tablet 500 mg PO DAILY glipizide 5 mg tablet extended release 24hr 5 mg PO DAILY Jardiance 10 mg tablet 10 mg PO DAILY Patient Comments: pt states she only takes as neeeded leflunomide 20 mg tablet 20 mg PO DAILY pregabalin [Lyrica] 75 mg capsule 75 mg PO DAILY guaifenesin [Mucinex] 600 mg tablet extended release 12hr 600 mg PO BID PRN (Reason: congestion) atomoxetine 80 mg capsule 80 mg PO DAILY venlafaxine 150 mg capsule,extended release 24hr 300 mg PO DAILY prednisone 20 mg tablet 5 mg PO DAILY PRN (Reason: pain) Rx Instructions: x5days metoprolol tartrate 25 mg tablet 25 mg PO BID Qty: 60 11RF Patient Comments: pt states they take once daily fluticasone propion-salmeterol [Advair Diskus] 1 EACH blister with device 1 puff inhalation BID Patient Comments: RINSE AND GARGLE MOUTH WITH WATER AFTER EACH USE. montelukast 10 MG tablet 10 mg PO QHS albuterol sulfate [ProAir HFA] 1 PUFF inhaler 1 - 2 puff inhalation Q4H PRN (Reason: Asthma) losartan 100 mg tablet 100 mg PO QHS amlodipine 10 MG tablet 10 mg PO DAILY quetiapine 100 mg tablet 200 mg PO QHS Patient Comments: pt states she takes 1 at night if needed alprazolam 0.5 mg tablet 0.5 mg PO DAILY PRN (Reason: Anxiety) Rx Instructions: Take 1 tab QAM and 2 tabs at night fluticasone propionate 50 mcg/actuation spray,suspension 1 spray intranasal DAILY PRN (Reason: allergy symptoms) Rx Instructions: administer into each nostril alprazolam 0.5 mg tablet 1 mg PO QHS Rx Instructions: Take 1 tab QAM and 2 tabs at night clopidogrel [Plavix] 75 mg tablet 75 mg PO DAILY aspirin [Adult Low Dose Aspirin] 81 mg tablet,delayed release (DR/EC) 81 mg PO DAILY furosemide 40 mg tablet 40 mg PO DAILY PRN (Reason: edema) Qty: 30 11RF Referrals / Follow Up: Ruel Peoples MD [Primary Care Provider] - Within 1 Week Steven Joyce DO [Med Staff - Active Staff] - Within 2 Weeks Disposition Disposition (needs filled in before D/C Order can be placed): [facility] (3) Fall Qualifiers: Encounter type: subsequent encounter Qualified Code(s): W19.XXXD - Unspecified fall, subsequent encounter 10/18/23 1305 <Electronically signed by Viry Byoce MD> Cosigner Signature (if applicable): CC: Dr. Ruel Peoples MD; Dr. Elayne Baker MD ~ [facility] Work Phone: 1(357) 552-572902-27-2024 Discharge summary Author Viry Sandranury [facility] October 18, 2023 3:26pm Note Date/Time October 18, 2023 1:05pm [facility] Medical Records Department [address] [place] [address] Discharge Summary 10/18/23 1305 MR#: [id number] Acct: [id number] Name: RAJWINDER WYLIE Rep #:[id number] : 1950 73 From: Viry Boyce MD PCP: Dr. Ruel Peoples MD Status: ADM IN Location: [place] [address] Providers Date of Admission: 10/12/23 Date of Discharge: 10/18/23 Primary Care Physician: Dr. Ruel Peoples MD Reason For Visit: PROXIMAL HUMERUS FX,ACUTE KIDNEY INJURY Diagnosis Discharge Diagnosis (1) Rhabdomyolysis: Status: Acute Code(s): M62.82 - Rhabdomyolysis (2) Fracture of proximal end of right humerus: Status: Acute Code(s): S42.201A - Unspecified fracture of upper end of right humerus, initial encounterfor closed fracture (3) Fall: Status: Acute Code(s): W19.XXXA - Unspecified fall, initial encounter Qualifiers: Encounter type: subsequent encounter Qualified Code(s): W19.XXXD - Unspecified fall, subsequent encounter Plan #RUE proximal humeral fracture due to mechanical fall * Right upper extremity currently in a sling. * Per orthopedics this is conservative management for now. PT OT on board. * On p.o. Tylenol, p.o. oxycodone and IV morphine as needed for pain. * For precautions. #YOON: resolved. #Hyponatremia:resolved. #Hypokalemia: Potassium is 3.5 today. #UTI: urine culture grew E. coli. Patient on IV ceftriaxone. To complete a 5 daycourse. #History of CAD: S/p stenting 2022. On aspirin and Plavix. Statin was held dueto elevated CPK. #Rhabdomyolysis: resolving with hydration. Will monitor. #Elevated lactic acid: resolved. #SANTHOSH: On BiPAP nightly. #Type 2 diabetes mellitus: On insulin sliding scale. Tactics ACHS. #Seizure disorder: * On Keppra. Patient was noted to have bitten her tongue at the time that she had a fall. It is unclear whether she had a seizure or not then. * hasnt had any overt seizure since admission * stable. * #History of asthma: Breathing treatments bronchodilators. #Rheumatoid arthritis: On leflunomide which is currently on hold on account of YOON. # Hypertension: Blood pressure was very low so BP meds held. Hypotension has resolved. BP meds resumed-amlodipine 10mg daily and metoprolol 25mg bid.. #Mood disorder: On citalopram. Was also on Xanax and dose was decreased on admission. Was also on Effexor which is currently held. On seroquel. DVT prophylaxis: SCDs. Disposition; awaiting placement Medications at Discharge Home Medications fluticasone 500 mcg-salmeterol 50 mcg/dose blistr powdr for inhalation (Advair Diskus) 1 puff inhalation BID shortness of breath 01/23/15 albuterol sulfate 90 mcg/actuation aerosol inhaler (ProAir HFA) 1 - 2 puff inhalation Q4H PRN Asthma 04/15/15 montelukast 10 mg tablet 10 mg PO QHS allergies 04/15/15 amlodipine 10 mg tablet 10 mg PO DAILY blood pressure 05/28/15 atorvastatin 20 mg tablet 20 mg PO QHS cholesterol 09/23/22 citalopram 40 mg tablet 40 mg PO QHS sleep 09/23/22 empagliflozin 10 mg tablet (Jardiance) 10 mg PO DAILY diabetes 09/23/22 glipizide 5 mg tablet, extended release 24 hr 5 mg PO DAILY diabetes 09/23/22 hydrochlorothiazide 12.5 mg tablet 12.5 mg PO DAILY blood pressure 09/23/22 leflunomide 20 mg tablet 20 mg PO DAILY inflammation 09/23/22 levetiracetam 750 mg tablet,extended release 24 hr 750 mg PO DAILY seizures 09/23/22 losartan 100 mg tablet 100 mg PO QHS blood pressure 09/23/22 metformin 500 mg tablet 500 mg PO DAILY diabetes 09/23/22 ondansetron HCl 4 mg tablet 4 mg PO Q8H PRN Nausea 09/23/22 potassium chloride 20 mEq tablet,extended release 20 meq PO DAILY potassium 09/23/22 pregabalin 75 mg capsule (Lyrica) 75 mg PO DAILY pain 09/23/22 quetiapine 100 mg tablet 200 mg PO QHS mood disorder 09/23/22 tiotropium bromide 2.5 mcg/actuation mist for inhalation (Spiriva Respimat) 2 puff inhalation DAILY shortness of breath 09/23/22 meclizine 25 mg tablet 25 mg PO BID dizziness 11/26/22 alprazolam 0.5 mg tablet 0.5 mg PO DAILY PRN Anxiety 12/15/22 atomoxetine 80 mg capsule 80 mg PO DAILY attention 12/15/22 venlafaxine 150 mg capsule,extended release 24 hr 300 mg PO DAILY mood 12/15/22 aspirin 81 mg tablet,delayed release (Adult Low Dose Aspirin) 81 mg PO DAILY heart 01/06/23 guaifenesin 600 mg tablet, extended release 12 hr (Mucinex) 600 mg PO BID PRN congestion 04/29/23 metoprolol tartrate 25 mg tablet 25 mg PO BID blood pressure #60 tabs 04/29/23 prednisone 20 mg tablet 5 mg PO DAILY PRN pain 04/29/23 furosemide 40 mg tablet 40 mg PO DAILY PRN edema #30 tabs 06/24/23 alprazolam 0.5 mg tablet 1 mg PO QHS anxiety/sleep 10/12/23 clopidogrel 75 mg tablet (Plavix) 75 mg PO DAILY blood thinner 10/12/23 fluticasone propionate 50 mcg/actuation nasal spray,suspension 1 spray intranasal DAILY PRN allergy symptoms 10/12/23 oxycodone 5 mg tablet 5 mg PO Q4H PRN PRN Pain Score 4-10 3 days #18 tabs 10/18/23 Hospital Course Operations None Procedures None Summary of Care Provided Minutes Spent on Discharge: 55 Hospital Course: Patient is a 73-year-old female with a past medical history as outlined was admitted through the ED on 10/12/2023 with a complaint of mechanical fall which happened 2 days prior to admission and with associated weakness. She tripped andfell and thinks that she hit her head. She complained of right shoulder and right knee pain. She did not think she lost consciousness. Imaging showed a right impacted proximal surgical neck fracture. WBC was also elevated at 17.4 hemoglobin was 15.1. Sodium was elevated at 150 and creatinine was 3.05. She was also tachycardic with heart rate of 151 on admission. Her heart rate subsequently improved. She was admitted and managed for debility and mechanicalfall with resultant right proximal humeral fracture as well as hypernatremia andAKI. She was hydrated with IV fluids. Her right upper extremity was placed in a sling. Case was discussed with orthopedic surgery on-call who recommended conservative management and stated the patient could follow-up on outpatient basis. # Hyponatremia resolved and YOON also resolved. Urine cultures grew E. coli and she was treated for UTI and placed on IV ceftriaxone. She was also managed for rhabdomyolysis due to mechanical fall which resolved with hydration. Hospital course was complicated by encephalopathy which subsequently resolved and patient was alert and communicative. She remained stable and was skilled asneeding rehab. She was discharged intermediate facility on 10/18/2023. She was given a prescription for p.o. oxycodone 5 mg every 4 hours as needed for total of 18 tabs with 0 refills. She is follow-up with her primary care doctor within 1 to 2 weeks and follow-up with orthopedic surgery within 1 to 2 weeks. Patient seen and examined prior to discharge. She felt well and had no complaints. She had an uneventful night. Review of systems otherwise negative. Labs and vitals reviewed. Home medication reviewed and reconciled. Physical Exam Const alert and no apparent distress Constitutional Narrative: frail, weak, drowsy General Appearance: cooperative Orientation / Consciousness: confused and lethargic HEENT normocephalic, head/scalp atraumatic and hearing grossly normal bilaterally Mouth: oral and palatal mucosa normal Eyes PERRL and EOMs intact bilaterally Neck no lymphadenopathy and supple Lymph Lymphatic: no lymphadenopathy noted and no lymphedema noted Resp Resp Narrative: mildly diminished breath sounds bibasally, no wheezes or crackles. On room air. Cardio regular rate, regular rhythm, S1 normal heart sound, S2 normal heart sound and no murmurs GI normal to inspection, nondistended, normoactive bowel sounds, soft to palpation and non-tender Extremity normal capillary refill and no clubbing, cyanosis or edema Extremity Narrative: RUE in sling. Skin Skin Narrative: extensive bruising over right shoulder and RUE. Neuro oriented x3, CN's II-XII intact bilaterally and no focal motor deficits Sensorium / Orientation: awake and alert Motor Exam: general weakness Weight / BMI Weight Weight: 182 lb 1.629 oz Body Mass Index (BMI) 31.2 ABG / Lab / Microbiology Data 10/18/23 05:31 10/18/23 05:31 Laboratory: Laboratory Results - last 24 hr 10/14/23 04:40: Diff Path Review Reviewed 10/17/23 16:14: POC Glucose 266 H 10/17/23 21:44: POC Glucose 192 H 10/18/23 05:31: WBC 9.5, RBC 4.02 L, Hgb 9.9 L, Hct 33.8 L, MCV 84.1, MCH 24.6 L, MCHC 29.3 L, RDW Std Deviation 52.6 H, RDW Coeff of Anali 17.2 H, Plt Count 145 L, MPV 11.5, Immature Gran % (Auto) 1.300 H, Neut % (Auto) 81.1 H, Lymph % (Auto) 7.8 L, [place] % (Auto) 6.3, Eos % (Auto) 3.0, Baso % (Auto) 0.5, Absolute Neuts (auto) 7.7, Absolute Lymphs (auto) 0.74 L, Nucleated RBC % 0, Sodium 141, Potassium 3.3 L, Chloride 112 H, Carbon Dioxide 24.0, Anion Gap 5, BUN 24 H, Creatinine 0.95, Estim Creat Clear Calc 55.65, Est GFR (MDRD) Af Amer 75, Est GFR (MDRD) Non-Af 62, BUN/Creatinine Ratio 25.4 H, Glucose 171 H, Calcium 8.0 L 10/18/23 06:18: POC Glucose 172 H 10/18/23 11:16: POC Glucose 250 H Microbiology: Microbiology 10/18/23 12:35 Nasal Secretion SARS-CoV-2 Antigen (Rapid) - Final 10/12/23 16:59 Blood Culture (Wb) - Anticubital Left Blood Culture - Final No growth in 5 days. 10/12/23 14:45 Blood Culture (Wb) - Anticubital Right Blood Culture - Final No growth in 5 days. 10/12/23 16:05 Urine Catheter - Marcus Urine Culture - Final Escherichia coli D/C Instructions Discharge Diet: Low fat / Low cholesterol Meaningful Use Info Meaningful Use Diagnoses (Choose all that apply): None applicable Discharge Plan Admission Admit Date/Time: 10/12/23 16:33 Primary Reason for Your Visit: right humeral fracture Attending Provider: Viry Boyce Primary Care Provider: Ruel Peoples Consulting Providers: Elayne Baker Instructions Patient Instructions: ED Fracture, Upper Extremity Discharge Orders/Prescriptions Prescriptions: New oxycodone 5 mg Tablet 5 mg PO Q4H PRN PRN (Reason: Pain Score 4-10) 3 Days Qty: 18 0RF Continued meclizine 25 mg tablet 25 mg PO BID hydrochlorothiazide 12.5 mg tablet 12.5 mg PO DAILY citalopram 40 mg tablet 40 mg PO QHS levetiracetam 750 mg tablet extended release 24 hr 750 mg PO DAILY ondansetron HCl 4 mg tablet 4 mg PO Q8H PRN (Reason: Nausea) atorvastatin 20 mg tablet 20 mg PO QHS Spiriva Respimat 2.5 mcg/actuation mist 2 puff inhalation DAILY potassium chloride 20 mEq tablet extended release 20 meq PO DAILY metformin 500 mg tablet 500 mg PO DAILY glipizide 5 mg tablet extended release 24hr 5 mg PO DAILY Jardiance 10 mg tablet 10 mg PO DAILY Patient Comments: pt states she only takes as neeeded leflunomide 20 mg tablet 20 mg PO DAILY pregabalin [Lyrica] 75 mg capsule 75 mg PO DAILY guaifenesin [Mucinex] 600 mg tablet extended release 12hr 600 mg PO BID PRN (Reason: congestion) atomoxetine 80 mg capsule 80 mg PO DAILY venlafaxine 150 mg capsule,extended release 24hr 300 mg PO DAILY prednisone 20 mg tablet 5 mg PO DAILY PRN (Reason: pain) Rx Instructions: x5days metoprolol tartrate 25 mg tablet 25 mg PO BID Qty: 60 11RF Patient Comments: pt states they take once daily fluticasone propion-salmeterol [Advair Diskus] 1 EACH blister with device 1 puff inhalation BID Patient Comments: RINSE AND GARGLE MOUTH WITH WATER AFTER EACH USE. montelukast 10 MG tablet 10 mg PO QHS albuterol sulfate [ProAir HFA] 1 PUFF inhaler 1 - 2 puff inhalation Q4H PRN (Reason: Asthma) losartan 100 mg tablet 100 mg PO QHS amlodipine 10 MG tablet 10 mg PO DAILY quetiapine 100 mg tablet 200 mg PO QHS Patient Comments: pt states she takes 1 at night if needed alprazolam 0.5 mg tablet 0.5 mg PO DAILY PRN (Reason: Anxiety) Rx Instructions: Take 1 tab QAM and 2 tabs at night fluticasone propionate 50 mcg/actuation spray,suspension 1 spray intranasal DAILY PRN (Reason: allergy symptoms) Rx Instructions: administer into each nostril alprazolam 0.5 mg tablet 1 mg PO QHS Rx Instructions: Take 1 tab QAM and 2 tabs at night clopidogrel [Plavix] 75 mg tablet 75 mg PO DAILY aspirin [Adult Low Dose Aspirin] 81 mg tablet,delayed release (DR/EC) 81 mg PO DAILY furosemide 40 mg tablet 40 mg PO DAILY PRN (Reason: edema) Qty: 30 11RF Referrals / Follow Up: Ruel Peoples MD [Primary Care Provider] - Within 1 Week Steven Joyce DO [Med Staff - Active Staff] - Within 2 Weeks Disposition Disposition (needs filled in before D/C Order can be placed): [facility] Facility Charges/Coding Visit Charges Inpatient E&M: 68678 Disch Hosp >30min 10/18/23 1526 <Electronically signed by Viry Boyce MD> Cosigner Signature (if applicable): CC: Dr. Ruel Peoples MD; Dr. Viry Boyce MD~ Signed [facility] Work Phone: [phone]) 971-930602-26-2024 Progress note Author [facility] October 17, 2023 4:00pm Note Date/Time October 17, 2023 10:26[facility] Medical Records Department [address] [place] [address] Progress Note 10/17/23 1025 MR#: [id number] Acct: [id number] Name: RAJWINDER WYLIE Rep #:[id number] : 1950 73 From: Viry Boyce MD PCP: Dr. Ruel Peoples MD Status: ADM IN Location: [place] [address]- 1 Subjective Subjective Patient seen and examined. She was resting calmly. Per her nurse, no active events overnight. She is awaiting placement. Objective Data Objective Data Vital Signs: Vital Signs Temp Pulse Resp BP Pulse Ox O2 Del Method O2 Flow Rate 98.5 F 104 H 18 132/70 H 95 Room Air 2 10/17/23 09:16 10/17/23 10:04 10/17/23 09:16 10/17/23 10:04 10/17/23 09:16 10/17/23 09:16 10/17/23 06:50 Oxygen Flow Rate (L/min) 2 Oxygen Delivery Method Room Air Weight: 182 lb 8.684 oz Body Mass Index (BMI) 31.3 Intake & Output: Intake and Output for Last 24 Hours 10/15/23 10/16/23 10/17/23 23:59 23:59 23:59 Intake Total 3735.00 / 3735.00 3425.0 / 3425.0 1000 / 1000 Output Total 2500 / 2500 2200 / 2200 0 / 0 Balance 1235.00 / 1235.00 1225.0 / 1225.0 1000 / 1000 Lab / Micro Data 10/17/23 06:05 10/17/23 06:05 Labs: Laboratory Results - last 24 hr 10/16/23 12:15: POC Glucose 276 H 10/16/23 16:45: POC Glucose 195 H 10/16/23 21:40: POC Glucose 179 H 10/17/23 06:05: WBC 11.9 H, RBC 4.34, Hgb 11.1 L, Hct 36.1 L, MCV 83.2, MCH 25.6L, MCHC 30.7 L, RDW Std Deviation 51.8 H, RDW Coeff of Anali 17.0 H, Plt Count 148L, MPV 11.2, Immature Gran % (Auto) 1.000 H, Neut % (Auto) 81.3 H, Lymph % (Auto) 7.3 L, [place] % (Auto) 6.2, Eos % (Auto) 3.9, Baso % (Auto) 0.3, Absolute Neuts (auto) 9.7 H, Absolute Lymphs (auto) 0.87, Nucleated RBC % 0, Sodium 144, Potassium 3.5, Chloride 117 H, Carbon Dioxide 23.0, Anion Gap 4 L, BUN 21 H, Creatinine 0.93, Estim Creat Clear Calc 56.92, Est GFR (MDRD) Af Amer 76, Est GFR (MDRD) Non-Af 63, BUN/Creatinine Ratio 22.6 H, Glucose 175 H, Calcium 8.4 L Micro: Microbiology 10/12/23 16:59 Blood Culture (Wb) - Anticubital Left Blood Culture - Preliminary No growth in 48 hours. 10/12/23 14:45 Blood Culture (Wb) - Anticubital Right Blood Culture - Preliminary No growth in 48 hours. 10/12/23 16:05 Urine Catheter - Marcus Urine Culture - Final Escherichia coli Physical Exam Const Constitutional Narrative: frail, weak, drowsy Orientation / Consciousness: lethargic HEENT normocephalic and head/scalp atraumatic Eyes PERRL and EOMs intact bilaterally Neck no lymphadenopathy and supple Lymph Lymphatic: no lymphadenopathy noted and no lymphedema noted Resp Resp Narrative: mildly diminished breath sounds bibasally, no wheezes or crackles. On room air. Cardio regular rate, regular rhythm, S1 normal heart sound, S2 normal heart sound and no murmurs GI normal to inspection, nondistended, normoactive bowel sounds, soft to palpation and non-tender Extremity normal capillary refill and no clubbing, cyanosis or edema Extremity Narrative: RUE in sling. Skin Skin Narrative: extensive bruising over right shoulder and RUE. Neuro Neuro Narrative: drowsy Motor Exam: general weakness Psych Psych Narrative: drowsy Activity / Motor Behavior: restless Assessment & Plan Assessment/Plan (1) Rhabdomyolysis: (2) Fracture of proximal end of right humerus: (3) Fall: QUALIFIERS: Encounter type: subsequent encounter Qualified Code(s): W19.XXXD - Unspecified fall, subsequent encounter PLAN: Plan #RUE proximal humeral fracture due to mechanical fall * Right upper extremity currently in a sling. * Per orthopedics this is conservative management for now. PT OT on board. * On p.o. Tylenol, p.o. oxycodone and IV morphine as needed for pain. * For precautions. #YOON: resolved. #Hyponatremia:resolved. #Hypokalemia: Potassium is 3.5 today. #UTI: urine culture grew E. coli. Patient on IV ceftriaxone. To complete a 5 daycourse. #History of CAD: S/p stenting 2022. On aspirin and Plavix. Statin was held dueto elevated CPK. #Rhabdomyolysis: resolving with hydration. Will monitor. #Elevated lactic acid: resolved. #SANTHOSH: On BiPAP nightly. #Type 2 diabetes mellitus: On insulin sliding scale. Tactics ACHS. #Seizure disorder: * On Keppra. Patient was noted to have bitten her tongue at the time that she had a fall. It is unclear whether she had a seizure or not then. * hasnt had any overt seizure since admission * stable. * #History of asthma: Breathing treatments bronchodilators. #Rheumatoid arthritis: On leflunomide which is currently on hold on account of YOON. # Hypertension: Blood pressure was very low so BP meds held. Hypotension has resolved. BP meds resumed-amlodipine 10mg daily and metoprolol 25mg bid.. #Mood disorder: On citalopram. Was also on Xanax and dose was decreased on admission. Was also on Effexor which is currently held. On seroquel. DVT prophylaxis: SCDs. Disposition; awaiting placement Charges/Coding Visit Charges Inpatient E&M: 65574 Subs Hosp L2 10/17/23 1600 <Electronically signed by Viry Boyce MD> Viry Boyce MD Cosigner Signature (if applicable): CC: ~ Signed [facility] Work Phone: 1(672) 143-139102-25-2024 Progress note Author [facility] October 16, 2023 1:17pm Note Date/Time October 16, 2023 10:07am [facility] Medical Records Department [facility] [place] [address] Progress Note 10/16/23 1003 MR#: [id number] Acct: [id number] Name: RAJWINDER WYLIE Rep #:[id number] : 1950 73 From: Viry Boyce MD PCP: Dr. Ruel Peoples MD Status: ADM IN Location: [place] [id number] Subjective Subjective Patient seen and examined. She was much more alert and communicative today. She does appear to have episodes of confusion. She had no active complaints. She is on room air. 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 However her nurse tells me that she told the nurse it was due to her biting her tongue as it being the assumption all along. She has been hemodynamically stable. Review of systems otherwise negative. Objective Data Objective Data Vital Signs: Vital Signs Temp Pulse Resp BP Pulse Ox O2 Del Method O2 Flow Rate 98.9 F 98 18 134/53 H 94 Room Air 2 10/16/23 08:51 10/16/23 08:51 10/16/23 08:51 10/16/23 08:51 10/16/23 08:51 10/16/23 08:51 10/15/23 22:00 Oxygen Flow Rate (L/min) 2 Oxygen Delivery Method Room Air Weight: 182 lb 8.684 oz Body Mass Index (BMI) 31.3 Intake & Output: Intake and Output for Last 24 Hours 10/14/23 10/15/23 10/16/23 23:59 23:59 23:59 Intake Total 3250.00 / 3250.00 3735.00 / 3735.00 1767.5 / 1767.5 Output Total 1800 / 2500 2500 / 2500 1000 / 1000 Balance 1450.00 / 750.00 1235.00 / 1235.00 767.5 / 767.5 Lab / Micro Data 10/16/23 05:50 10/16/23 05:50 Labs: Laboratory Results - last 24 hr 10/15/23 11:40: POC Glucose 270 H 10/15/23 16:56: POC Glucose 250 H 10/15/23 20:53: POC Glucose 228 H 10/16/23 05:50: WBC 12.0 H, RBC 4.38, Hgb 10.9 L, Hct 35.8 L, MCV 81.7, MCH 24.9L, MCHC 30.4 L, RDW Std Deviation 50.6 H, RDW Coeff of Anali 17.2 H, Plt Count 128L, MPV 11.0, Immature Gran % (Auto) 1.200 H, Neut % (Auto) 79.0 H, Lymph % (Auto) 7.1 L, [place] % (Auto) 8.0, Eos % (Auto) 4.5, Baso % (Auto) 0.2, Absolute Neuts (auto) 9.5 H, Absolute Lymphs (auto) 0.86, Nucleated RBC % 0, Sodium 143, Potassium 3.3 L, Chloride 116 H, Carbon Dioxide 22.0, Anion Gap 5, BUN 27 H, Creatinine 1.27 H, Estim Creat Clear Calc 41.68, Est GFR (MDRD) Af Amer 53 L, Est GFR (MDRD) Non-Af 44 L, BUN/Creatinine Ratio 21.3 H, Glucose 309 H, Calcium 7.9 L 10/16/23 06:36: POC Glucose 295 H Micro: Microbiology 10/12/23 16:59 Blood Culture (Wb) - Anticubital Left Blood Culture - Preliminary No growth in 48 hours. 10/12/23 14:45 Blood Culture (Wb) - Anticubital Right Blood Culture - Preliminary No growth in 48 hours. 10/12/23 16:05 Urine Catheter - Marcus Urine Culture - Final Escherichia coli Physical Exam Const alert and no apparent distress Constitutional Narrative: frail, weak General Appearance: cooperative Orientation / Consciousness: confused HEENT normocephalic and head/scalp atraumatic HEENT Narrative: has blackening of anterior tongue. Mouth: dry mucous membranes Eyes PERRL and EOMs intact bilaterally Neck no lymphadenopathy and supple Lymph Lymphatic: no lymphadenopathy noted and no lymphedema noted Resp Resp Narrative: mildly diminished breath sounds bibasally, no wheezes or crackles. On room air. Cardio regular rate, regular rhythm, S1 normal heart sound, S2 normal heart sound and no murmurs GI normal to inspection, nondistended, normoactive bowel sounds, soft to palpation and non-tender Extremity normal capillary refill and no clubbing, cyanosis or edema Extremity Narrative: RUE in sling. Skin Skin Narrative: extensive bruising over right shoulder and RUE. Neuro Neuro Narrative: alert, occasional confusion. Motor Exam: general weakness Psych Psych Narrative: confused Mood & Affect: flat affect Assessment & Plan Assessment/Plan (1) Rhabdomyolysis: (2) Fracture of proximal end of right humerus: (3) Fall: QUALIFIERS: Encounter type: subsequent encounter Qualified Code(s): W19.XXXD - Unspecified fall, subsequent encounter PLAN: Plan #RUE proximal humeral fracture due to mechanical fall * Right upper extremity currently in a sling. * Per orthopedics this is conservative management for now. PT OT on board. * On p.o. Tylenol, p.o. oxycodone and IV morphine as needed for pain. * For precautions. #YOON: Resolving. Cr is 1.27 #Hyponatremia:resolved. Na is 143 today #Hypokalemia: Potassium is 3.3 today. Replace and trend. #UTI: urine culture grew E. coli. Patient on IV ceftriaxone. To complete a 5 daycourse. #History of CAD: S/p stenting 2022. On aspirin and Plavix. Statin was held dueto elevated CPK. #Rhabdomyolysis: resolving with hydration. Will monitor. #Elevated lactic acid: resolved. #SANTHOSH: On BiPAP nightly. #Type 2 diabetes mellitus: On insulin sliding scale. Tactics ACHS. #Seizure disorder: * On Keppra. Patient was noted to have bitten her tongue at the time that she had a fall. It is unclear whether she had a seizure or not then. * hasnt had any overt seizure since admission * stable. * #History of asthma: Breathing treatments bronchodilators. #Rheumatoid arthritis: On leflunomide which is currently on hold on account of YOON. # Hypertension: Blood pressure was very low so BP meds held. Hypotension has resolved. BP meds resumed. #Mood disorder: On citalopram. Was also on Xanax and dose was decreased on admission. Was also on Effexor which is currently held. DVT prophylaxis: SCDs. Disposition; awaiting placement Charges/Coding Visit Charges Inpatient E&M: 35566 [facility] Hosp L2 10/16/23 1317 <Electronically signed by Viry Boyce MD> Viry Boyce MD Cosigner Signature (if applicable): CC: ~ Signed [facility] Work Phone: 1(770) 585-371502-24-2024 Progress note Author [facility] October 15, 2023 3:13pm Note Date/Time October 15, 2023 11:26[facility] Medical Records Department [facility] [place] [address] Progress Note 10/15/23 1118 MR#: [id number] Acct: [id number] Name: RAJWINDER WYLIE Rep #:[id number] : 1950 73 From: Viry Boyce MD PCP: Dr. Ruel Peoples MD Status: ADM IN Location: [place] [address] Subjective Subjective Patient seen and examined. She was much more alert and communicative today. She had no active complaints. Review of systems otherwise negative. Objective Data Objective Data Vital Signs: Vital Signs Temp Pulse Resp BP Pulse Ox O2 Del Method O2 Flow Rate 97.6 F L 95 18 134/70 H 94 Nasal Cannula 2 10/15/23 10:10/15/23 10:10/15/23 10:10/15/23 10:10/15/23 10:28 10/15/23 10:10/15/23 10:28 Oxygen Flow Rate (L/min) 2 Oxygen Delivery Method Nasal Cannula Weight: 182 lb 8.684 oz Body Mass Index (BMI) 31.3 Intake & Output: Intake and Output for Last 24 Hours 10/13/23 10/14/23 10/15/23 23:59 23:59 23:59 Intake Total 5223.76 / 5223.76 3250.00 / 3250.00 997.5 / 997.5 Output Total 1999 / 1999 1800 / 2500 1200 / 1200 Balance 3223.76 / 3223.76 1450.00 / 750.00 -202.5 / -202.5 Lab / Micro Data 10/15/23 06:20 10/15/23 06:20 Labs: Laboratory Results - last 24 hr 10/14/23 11:15: POC Glucose 318 H 10/14/23 13:53: Total Creatine Kinase 648 H 10/14/23 16:48: POC Glucose 287 H 10/14/23 22:06: POC Glucose 282 H 10/15/23 05:59: POC Glucose 297 H 10/15/23 06:20: WBC 14.2 H, RBC 4.47, Hgb 11.1 L, Hct 36.9 L, MCV 82.6, MCH 24.8L, MCHC 30.1 L, RDW Std Deviation 51.0 H, RDW Coeff of Anali 17.3 H, Plt Count 145L, MPV 10.6, Immature Gran % (Auto) 0.800, Neut % (Auto) 81.8 H, Lymph % (Auto) 6.7 L, [place] % (Auto) 6.3, Eos % (Auto) 4.2, Baso % (Auto) 0.2, Absolute Neuts (auto) 11.6 H, Absolute Lymphs (auto) 0.96, Nucleated RBC % 0, Sodium 150 H, Potassium 3.0 L, Chloride 122 H, Carbon Dioxide 23.0, Anion Gap 5, BUN 37 H, Creatinine 1.26 H, Estim Creat Clear Calc 42.01, Est GFR (MDRD) Af Amer 54 L, Est GFR (MDRD) Non-Af 44 L, BUN/Creatinine Ratio 29.4 H, Glucose 323 H, Calcium 8.4 L, Total Creatine Kinase 332 H Micro: Microbiology 10/12/23 16:59 Blood Culture (Wb) - Anticubital Left Blood Culture - Preliminary No growth in 48 hours. 10/12/23 14:45 Blood Culture (Wb) - Anticubital Right Blood Culture - Preliminary No growth in 48 hours. 10/12/23 16:05 Urine Catheter - Marcus Urine Culture - Final Escherichia coli Physical Exam Const alert Constitutional Narrative: frail, weak HEENT normocephalic and head/scalp atraumatic Neck no lymphadenopathy and supple Lymph Lymphatic: no lymphadenopathy noted and no lymphedema noted Resp Resp Narrative: mildly diminished breath sounds bibasally, no wheezes or crackles. On 2L of oxygen. Cardio regular rate, regular rhythm, S1 normal heart sound, S2 normal heart sound and no murmurs GI normal to inspection, nondistended, normoactive bowel sounds, soft to palpation and non-tender Extremity Extremity Narrative: RUE in sling. Skin Skin Narrative: extensive bruising over right shoulder and RUE. Neuro Neuro Narrative: lethargic, though she is much more communicative today Motor Exam: general weakness Psych Mood & Affect: flat affect Assessment & Plan Assessment/Plan (1) Rhabdomyolysis: (2) Fracture of proximal end of right humerus: (3) Fall: PLAN: Plan #RUE proximal humeral fracture due to mechanical fall * Right upper extremity currently in a sling. * Per orthopedics this is conservative management for now. PT OT on board. * On p.o. Tylenol, p.o. oxycodone and IV morphine as needed for pain. * For precautions. #YOON: Resolving. Cr down to 1.26. #Hyponatremia: sodium is slightly down to 150 today. Will continue D5W. #Hypokalemia: Potassium is 3.0. Replace and trend. #History of CAD: S/p stenting 2022. On aspirin and Plavix. Statin was held dueto elevated CPK. #Rhabdomyolysis: resolving. CPK is down to 332. #Elevated lactic acid: Most likely due to YOON and dehydration. Did have elevated white cell count but no clear evidence of infection. Will monitor. #SANTHOSH: On BiPAP nightly. #Type 2 diabetes mellitus: On insulin sliding scale. Tactics ACHS. #Seizure disorder: * On Keppra. Patient was noted to have bitten her tongue at the time that she had a fall. It is unclear whether she had a seizure or not then. * Will monitor if she has any symptoms like a seizure, will request neuroconsult to evaluate current dose of meds. * hasnt had any overt seizure since admission * #History of asthma: Breathing treatments bronchodilators. #Rheumatoid arthritis: On leflunomide which is currently on hold on account of YOON. # Hypertension: Blood pressure was very low so BP meds held. Hypotension has resolved. Will resume BP meds #Mood disorder: On citalopram. Was also on Xanax and dose was decreased on admission. Was also on Effexor which is currently held. DVT prophylaxis: SCDs. Disposition; awaiting placement Charges/Coding Visit Charges Inpatient E&M: 54923 Subs Hosp L2 10/15/23 1763 <Electronically signed by Viry Boyce MD> Viry Boyce MD Cosigner Signature (if applicable): CC: ~ Signed [facility] Work Phone: [phone]) [id number] Progress note Author [facility] October 14, 2023 3:46pm Note Date/Time October 14, 2023 12:41pm [facility] Medical Records Department [address] [place] [address] Progress Note 10/14/23 1230 MR#: [id number] Acct: [id number] Name: RAJWINDER WYLIE Rep #:[id number] : 1950 73 From: Viry Boyce MD PCP: Dr. Ruel Peoplse MD Status: ADM IN Location: [place] [id number] Subjective Subjective Patient seen and examined. She was resting calmly. Per her nurse no active events overnight. Unable to do review of systems as patient was sleeping. She has remained hemodynamically stable. Sodium is up to 152. Objective Data Objective Data Vital Signs: Vital Signs Temp Pulse Resp BP Pulse Ox O2 Del Method O2 Flow Rate 97.9 F 105 H 20 H 140/80 H 94 Nasal Cannula 2 10/14/23 09:38 10/14/23 09:38 10/14/23 09:38 10/14/23 09:38 10/14/23 09:38 10/14/23 09:42 10/14/23 09:42 Oxygen Flow Rate (L/min) 2 Oxygen Delivery Method Nasal Cannula Weight: 182 lb 8.684 oz Body Mass Index (BMI) 31.3 Intake & Output: Intake and Output for Last 24 Hours 10/12/23 10/13/23 10/14/23 23:59 23:59 23:59 Intake Total 2100 / 2100 5223.76 / 5223.76 1103.75 / 1103.75 Output Total 700 / 700 1999 / 2000 1250 / 1250 Balance 1400 / 1400 3223.76 / 3223.76 -146.25 / -146.25 Lab / Micro Data 10/14/23 04:40 10/14/23 04:40 Labs: Laboratory Results - last 24 hr 10/13/23 06:35: Diff Path Review Reviewed 10/13/23 15:54: POC Glucose 284 H 10/13/23 20:27: POC Glucose 279 H 10/14/23 04:40: WBC 16.2 H, RBC 4.66, Hgb 11.5 L, Hct 37.8, MCV 81.1, MCH 24.7 L, MCHC 30.4 L, RDW Std Deviation 50.3 H, RDW Coeff of Anali 17.3 H, Plt Count 217,MPV 11.7, Immature Gran % (Auto) 0.600, Neut % (Auto) 81.5 H, Lymph % (Auto) 5.5L, [place] % (Auto) 10.3 H, Eos % (Auto) 1.8, Baso % (Auto) 0.3, Absolute Neuts (auto) 13.2 H, Absolute Lymphs (auto) 0.90, Nucleated RBC % 0, Differential Comment SCANNED, Diff Path Review December, Sodium 152 H, Potassium 3.3 L, Chloride 125 H, Carbon Dioxide 23.0, Anion Gap 4 L, BUN 72 H, Creatinine 1.73 H,Estim Creat Clear Calc 30.60, Est GFR (MDRD) Af Amer 37 L, Est GFR (MDRD) Non-Af31 L, BUN/Creatinine Ratio 41.6 H, Glucose 388 H, Calcium 8.8 10/14/23 06:06: POC Glucose 414 H 10/14/23 06:08: POC Glucose 365 H 10/14/23 11:15: POC Glucose 318 H Micro: Microbiology 10/12/23 16:05 Urine Catheter - Marcus Urine Culture - Final Escherichia coli Physical Exam Const Orientation / Consciousness: confused and lethargic HEENT normocephalic and head/scalp atraumatic Neck no lymphadenopathy and supple Lymph Lymphatic: no lymphadenopathy noted and no lymphedema noted Resp Resp Narrative: mildly diminished breath sounds bibasally, no wheezes or crackles. On 2L of oxygen. Cardio regular rate, regular rhythm, S1 normal heart sound, S2 normal heart sound and no murmurs GI normal to inspection, nondistended, normoactive bowel sounds, soft to palpation and non-tender Extremity Extremity Narrative: RUE in sling. Skin Skin Narrative: extensive bruising over right shoulder and RUE. Neuro Neuro Narrative: restless, lethargic. Motor Exam: general weakness Psych Psych Narrative: confused Activity / Motor Behavior: restless Assessment & Plan Assessment/Plan (1) Rhabdomyolysis: (2) Fracture of proximal end of right humerus: (3) Fall: PLAN: Plan #RUE proximal humeral fracture due to mechanical fall * Right upper extremity currently in a sling. * Per orthopedics this is conservative management for now. PT OT on board. * On p.o. Tylenol, p.o. oxycodone and IV morphine as needed for pain. * For precautions. #YOON: Resolving. Creatinine down to 1.73 from 3.05 on admission. Will continuetrending. #Hyponatremia: Sodium sodium is 1.52. Increased rate of D5 water to 150 cc/h- will trend sodium. #Hypokalemia: Potassium is 3.3. Replace and trend. #History of CAD: S/p stenting 2022. On aspirin and Plavix. Statin was held dueto elevated CPK. #Rhabdomyolysis: CPK was 981 on admission. Likely due to mechanical fall. Should improve with hydration. #Elevated lactic acid: Most likely due to YOON and dehydration. Did have elevated white cell count but no clear evidence of infection. Will monitor. #SANTHOSH: On BiPAP nightly. #Type 2 diabetes mellitus: On insulin sliding scale. Tactics ACHS. #Seizure disorder: * On Keppra. Patient was noted to have bitten her tongue at the time that she had a fall. It is unclear whether she had a seizure or not then. * Will monitor if she has any symptoms like a seizure, will request neuroconsult to evaluate current dose of meds. * #History of asthma: Breathing treatments bronchodilators. #Rheumatoid arthritis: On leflunomide which is currently on hold on account of YOON. # Hypertension: Blood pressure was very low so BP meds held. #Mood disorder: On citalopram. Was also on Xanax and dose was decreased on admission. Was also on Effexor which is currently held. DVT prophylaxis: SCDs. Charges/Coding Visit Charges Inpatient E&M: 07443 Subs Hosp L2 10/14/23 1546 <Electronically signed by Viry Boyce MD> Viry Boyce MD Cosigner Signature (if applicable): CC: ~ Signed [facility] Work Phone: 1(349) 901-394402-22-2024 Progress note Author Viry [facility] October 13, 2023 3:48pm Note Date/Time October 13, 2023 3:12pm [facility] Medical Records Department [address] [place] [id number] Progress Note 10/13/23 1501 MR#: [id number] Acct: [id number] Name: RAJWINDER WYLIE Rep #:[id number] : 1950 73 From: Viry Boyce MD PCP: Dr. Ruel Peoples MD Status: ADM IN Location: [place] [id number] Subjective Subjective Patient seen and examined. She was restless and in pain. She had episode of confusion. Unable to do review of systems. She is on 2L of oxygen. Objective Data Objective Data Vital Signs: Vital Signs Temp Pulse Resp BP Pulse Ox O2 Del Method O2 Flow Rate 99.1 F 115 H 20 H 109/60 96 Nasal Cannula 2 10/13/23 14:07 10/13/23 14:07 10/13/23 14:07 10/13/23 14:07 10/13/23 14:07 10/13/23 14:18 10/13/23 14:18 Oxygen Flow Rate (L/min) 2 Oxygen Delivery Method Nasal Cannula Weight: 182 lb 8.684 oz Body Mass Index (BMI) 31.3 Intake & Output: Intake and Output for Last 24 Hours 10/11/23 10/12/23 10/13/23 23:59 23:59 23:59 Intake Total 2100 / 2100 3013.34 / 3013.34 Output Total 700 / 700 1250 / 1250 Balance 1400 / 1400 1763.34 / 1763.34 Lab / Micro Data 10/13/23 06:35 10/13/23 06:35 Labs: Laboratory Results - last 24 hr 10/12/23 14:45: PT 22.4 H, INR 1.9, APTT 32.8, Sodium 150 H, Potassium 3.5, Chloride 117 H, Carbon Dioxide 22.0, Anion Gap 11, BUN 137 H*, Creatinine 3.05 H, Estim Creat Clear Calc 18.22, Est GFR (MDRD) Af Amer 19 L, Est GFR (MDRD) Non-Af 16 L, BUN/Creatinine Ratio 44.9 H, Glucose 319 H, Lactic Acid 3.4 H*, Tzoztlj63.4 H, Magnesium 4.1 H, Total Bilirubin 0.80, AST 52 H, ALT 29, Alkaline Phosphatase 156 H, Total Creatine Kinase 981 H, Troponin I High Sens 60 H, TotalProtein 7.9, Albumin 2.6 L, Globulin 5.3 H, Albumin/Globulin Ratio 0.5 L 10/12/23 16:05: Urine Color Yellow, Urine Clarity Clear, Urine pH 5.0, Ur Specific [place] 1.020, Urine Protein 15 H, Urine Glucose (UA) 100 H, Urine Ketones 5 H, Urine Occult Blood 10 H, Urine Nitrite Negative, Urine Bilirubin 1 H, Urine Urobilinogen Normal, Ur Leukocyte Esterase 25 H, Urine RBC 0-5 SEEN, Urine WBC 0 SEEN, Ur Squamous Epith Cells 0-5 SEEN, Urine Bacteria 0 SEEN, UrineMucus 0 SEEN 10/12/23 18:43: Sodium 151 H, Potassium 3.3 L, Chloride 122 H, Carbon Dioxide 21.0, Anion Gap 8, BUN 132 H*, Creatinine 2.67 H, Estim Creat Clear Calc 20.82, Est GFR (MDRD) Af Amer 23 L, Est GFR (MDRD) Non-Af 19 L, BUN/Creatinine Ratio 49.4 H, Glucose 294 H, Lactic Acid 2.0, Calcium 9.7, Total Bilirubin 0.70, AST 54 H, ALT 26, Alkaline Phosphatase 138 H, Total Protein 6.9, Albumin 2.4 L, Globulin 4.5 H, Albumin/Globulin Ratio 0.5 L 10/12/23 21:56: POC Glucose 219 H 10/12/23 22:39: Sodium 151 H, Potassium 3.0 L, Chloride 122 H, Carbon Dioxide 21.0, Anion Gap 8, BUN 125 H*, Creatinine 2.51 H, Estim Creat Clear Calc 21.09, Est GFR (MDRD) Af Amer 24 L, Est GFR (MDRD) Non-Af 20 L, BUN/Creatinine Ratio 49.8 H, Glucose 266 H, Calcium 9.3, Total Bilirubin 0.70, AST 48 H, ALT 25, Alkaline Phosphatase 131 H, Total Protein 6.6, Albumin 2.3 L, Globulin 4.3 H, Albumin/Globulin Ratio 0.5 L 10/13/23 06:29: POC Glucose 239 H 10/13/23 06:35: WBC 15.4 H, RBC 5.00, Hgb 12.5, Hct 40.5, MCV 81.0, MCH 25.0 L, MCHC 30.9 L, RDW Std Deviation 51.1 H, RDW Coeff of Anali 17.5 H, Plt Count 263, MPV 11.3, Immature Gran % (Auto) 0.700, Neut % (Auto) 83.8 H, Lymph % (Auto) 3.5L, [place] % (Auto) 11.5 H, Eos % (Auto) 0.4, Baso % (Auto) 0.1, Absolute Neuts (auto) 12.9 H, Absolute Lymphs (auto) 0.54 L, Nucleated RBC % 0.1, Differential Comment SCANNED, Diff Path Review December, Sodium 152 H, Potassium 3.1 L, Chloride 124 H, Carbon Dioxide 22.0, Anion Gap 6, BUN 112 H*, Creatinine 2.19 H,Estim Creat Clear Calc 24.17, Est GFR (MDRD) Af Amer 28 L, Est GFR (MDRD) Non-Af23 L, BUN/Creatinine Ratio 51.1 H, Glucose 264 H, Calcium 9.2, Magnesium 3.5 H, Total Bilirubin 0.60, AST 51 H, ALT 24, Alkaline Phosphatase 135 H, Total Protein 6.2 L, Albumin 2.1 L, Globulin 4.1, Albumin/Globulin Ratio 0.5 L 10/13/23 11:07: POC Glucose 237 H Micro: Microbiology 10/12/23 16:05 Urine Catheter - Marcus Urine Culture - Preliminary GNR lactose approver Physical Exam Const alert Orientation / Consciousness: confused and lethargic HEENT normocephalic and head/scalp atraumatic Neck no lymphadenopathy and supple Lymph Lymphatic: no lymphadenopathy noted and no lymphedema noted Resp Resp Narrative: mildly diminished breath sounds bibasally, no wheezes or crackles. On 2L of oxygen. Cardio regular rate, regular rhythm, S1 normal heart sound, S2 normal heart sound and no murmurs GI normal to inspection, nondistended, normoactive bowel sounds, soft to palpation and non-tender Extremity Extremity Narrative: RUE in sling. Skin Skin Narrative: extensive bruising over right shoulder and RUE. Neuro Neuro Narrative: restless, lethargic. Moving upper and lower extremities spontaneously, except the RUE Motor Exam: general weakness Psych Psych Narrative: confused Activity / Motor Behavior: restless Assessment & Plan Assessment/Plan (1) Rhabdomyolysis: (2) Fracture of proximal end of right humerus: (3) Fall: PLAN: Plan #RUE proximal humeral fracture due to mechanical fall * Right upper extremity currently in a sling. * Per orthopedics this is conservative management for now. PT OT on board. * On p.o. Tylenol, p.o. oxycodone and IV morphine as needed for pain. * For precautions. #YOON: Hydrate gently with IV fluids. CPK was also elevated and this likely prerenal due to mechanical fall. Will trend creatinine. Cr is down to 2.19. #Hyponatremia: Sodium is up to 152. This is likely due to IV fluid hydration. Will DC normal saline and started on D5 water. #Hypokalemia: Potassium is 3.1. Replace and trend. #History of CAD: S/p stenting 2022. On aspirin and Plavix. Statin was held dueto elevated CPK. #Rhabdomyolysis: CPK was 91 on admission. Likely due to mechanical fall. Should improve with hydration. #Elevated lactic acid: Most likely due to YOON and dehydration. Did have elevated white cell count but no clear evidence of infection. Will monitor. #SANTHOSH: On BiPAP nightly. #Type 2 diabetes mellitus: On insulin sliding scale. Tactics ACHS. #Seizure disorder: * On Keppra. Patient was noted to have bitten her tongue at the time that she had a fall. It is unclear whether she had a seizure or not then. * Will monitor if she has any symptoms like a seizure, will request neuroconsult to evaluate current dose of meds. * #History of asthma: Breathing treatments bronchodilators. #Rheumatoid arthritis: On leflunomide which is currently on hold on account of YOON. # Hypertension: Blood pressure was very low so BP meds held. #Mood disorder: On citalopram. Was also on Xanax and dose was decreased on admission. Was also on Effexor which is currently held. DVT prophylaxis: SCDs. Charges/Coding Visit Charges Inpatient E&M: 70457 Subs Hosp L3 10/13/23 3565 <Electronically signed by Viry Boyce MD> Viry Boyce MD Cosigner Signature (if applicable): CC: ~ Signed [facility] Work Phone: 1(527) 683-852602-21-2024 History and physical note Author Elayne Baker [facility] October 12, 2023 7:34pm Note Date/Time October 12, 2023 4:47pm [facility] Medical Records Department [address] [place] [address] H&P Exam - Hospitalist 10/12/23 1633 MR#: [id number] Acct: [id number] Name: RAJWINDER WYLIE Rep #:[id number] : 1950 73 From: Elayne Baker MD PCP: Dr. Ruel Peoples MD Status: ADM IN [facility] HPI - General General Date of Admission: 10/12/23 Date of Service: 10/12/23 Chief Complaint: Fall and R arm pain HPI Narrative RAJWINDER WYLIE, is a 73-year-old female with history of hypertension, SANTHOSH, diabetes, CAD w/ hx stents, asthma, RA, seizure disorder, mood disorder presented to [facility] ED 10/12/2023 with generalized weakness after a fall that occurred 2 days ago. Thinks she tripped and fell and that shehit her head and also complained of right shoulder and knee pain that is combination of sharp, aching, stabbing and nothing makes it better or worse. Does not think she had loss of consciousness. Some urinary frequency but no dysuria and has felt feverish. In the ED she was found to have right impacted fracture of proximal surgical neck of humerus with extension to greater and lesser tuberosities and cephalic and anterior migration of distal fracture fragment on x-ray. Also found of white blood cell count of 17.4 and hemoglobin 15.1. CMP revealed sodium of 150 with a BUN of 137 and creatinine of 3.05. Trop60 and LA 3.4. Heart rate on arrival 151 with blood pressure 99/73 and respiratory rate 23. Heart rate improved to low 100s with blood pressure also improving but given patient's multiple findings hospitalist contacted for admission. Patient evaluated at bedside but is poor historian, says she does not remember what happens when she fell 2 days ago but has been down since, presently reports some right arm pain but denies pain anywhere else, reports drymouth but otherwise fairly unreliable historian [facility] Medical History Abnormal stress test Ambulates with cane Anxiety Arthritis Asthma Atherosclerotic heart disease of [place] coronary artery without angina [facility]ectoris [facility] follow-up encounter Cataract (lens) fragments in eye following cataract surgery, bilateral CPAP (continuous positive airway pressure) dependence Depression Diabetes Dietary restriction Easy bruising First degree atrioventricular block Gout High cholesterol History of echocardiogram History of edema History of steroid therapy History of stress test Hypertension Lyme disease MRSA infection Nicotine dependence in remission Non-smoker Obesity Osteoarthritis Other shelter (current) drug therapy Post traumatic stress disorder Post-menopausal Restless legs Rheumatoid arthritis Seizures Sinus arrhythmia Sinusitis Sjogren's disease Sleep apnea Walker as ambulation aid Home Medications fluticasone 500 mcg-salmeterol 50 mcg/dose blistr powdr for inhalation (Advair Diskus) 1 puff inhalation BID shortness of breath 01/23/15 [History Last Taken 04/17/15 05:15] albuterol sulfate 90 mcg/actuation aerosol inhaler (ProAir HFA) 1 - 2 puff inhalation Q4H PRN Asthma 04/15/15 [History Last Taken Unknown] montelukast 10 mg tablet 10 mg PO QHS allergies 04/15/15 [History Last Taken Unknown] amlodipine 10 mg tablet 10 mg PO DAILY blood pressure 05/28/15 [History Last Taken 04/05/17 07:15 10 MG] atorvastatin 20 mg tablet 20 mg PO QHS cholesterol 09/23/22 [History Last Taken Unknown] citalopram 40 mg tablet 40 mg PO QHS sleep 09/23/22 [History Last Taken Unknown] empagliflozin 10 mg tablet (Jardiance) 10 mg PO DAILY diabetes 09/23/22 [History Last Taken Unknown] glipizide 5 mg tablet, extended release 24 hr 5 mg PO DAILY diabetes 09/23/22 [History Last Taken Unknown] hydrochlorothiazide 12.5 mg tablet 12.5 mg PO DAILY blood pressure 09/23/22 [History Last Taken Unknown] leflunomide 20 mg tablet 20 mg PO DAILY inflammation 09/23/22 [History Last Taken Unknown] levetiracetam 750 mg tablet,extended release 24 hr 750 mg PO DAILY seizures 09/23/22 [History Last Taken Unknown] losartan 100 mg tablet 100 mg PO QHS blood pressure 09/23/22 [History Last Taken Unknown] metformin 500 mg tablet 500 mg PO DAILY diabetes 09/23/22 [History Last Taken Unknown] ondansetron HCl 4 mg tablet 4 mg PO Q8H PRN Nausea 09/23/22 [History Last Taken Unknown] potassium chloride 20 mEq tablet,extended release 20 meq PO DAILY potassium 09/23/22 [History Last Taken Unknown] pregabalin 75 mg capsule (Lyrica) 75 mg PO DAILY pain 09/23/22 [History Last Taken Unknown] quetiapine 100 mg tablet 200 mg PO DAILY mood disorder 09/23/22 [History Last Taken Unknown] tiotropium bromide 2.5 mcg/actuation mist for inhalation (Spiriva Respimat) 2 puff inhalation DAILY shortness of breath 09/23/22 [History Last Taken Unknown] meclizine 25 mg tablet 25 mg PO BID dizziness 11/26/22 [History Last Taken Unknown] alprazolam 0.5 mg tablet 0.5 mg PO DAILY Anxiety 12/15/22 [History Last Taken Unknown] atomoxetine 80 mg capsule 80 mg PO DAILY attention 12/15/22 [History Last Taken Unknown] venlafaxine 150 mg capsule,extended release 24 hr 300 mg PO DAILY mood 12/15/22 [History Last Taken Unknown] aspirin 81 mg tablet,delayed release (Adult Low Dose Aspirin) 81 mg PO DAILY heart 01/06/23 [History Last Taken Unknown] guaifenesin 600 mg tablet, extended release 12 hr (Mucinex) 600 mg PO BID PRN congestion 04/29/23 [History Last Taken Unknown] metoprolol tartrate 25 mg tablet 25 mg PO BID blood pressure #60 tabs 04/29/23 [Rx Last Taken Unknown] prednisone 20 mg tablet 5 mg PO DAILY PRN pain 04/29/23 [History Last Taken Unknown] furosemide 40 mg tablet 40 mg PO DAILY PRN edema #30 tabs 06/24/23 [Rx Last Taken Unknown] alprazolam 0.5 mg tablet 1 mg PO QHS anxiety/sleep 10/12/23 [History Last Taken Unknown] clopidogrel 75 mg tablet (Plavix) 75 mg PO DAILY blood thinner 10/12/23 [History Last Taken Unknown] fluticasone propionate 50 mcg/actuation nasal spray,suspension 1 spray intranasal DAILY PRN allergy symptoms 10/12/23 [History Last Taken Unknown] Allergy/AdvReac Type Severity Reaction Status Date / Time Sulfa (Sulfonamide Allergy Hives Verified 10/12/23 13:26 Antibiotics) tree nut Allergy Anaphylaxis Verified 10/12/23 13:26 Rabbit AdvReac Severe NEEDS Verified 10/12/23 13:26 FOLLOW-UP sulfamethoxazole AdvReac Severe Skin Verified 10/12/23 13:26 [From Bactrim] rashes & blisters trimethoprim [From Bactrim] AdvReac Severe Skin Verified 10/12/23 13:26 rashes & blisters codeine AdvReac Other Verified 10/12/23 13:26 Environmental Allergies: AdvReac NEEDS Verified 10/12/23 13:26 Uncoded FOLLOW-UP erythromycin base AdvReac Upset Verified 10/12/23 13:26 Stomach milk [dairy] AdvReac Upset Verified 10/12/23 13:26 Stomach morphine AdvReac Nausea Verified 10/12/23 13:26 Family History Mother Diabetes Hypertension Heart disease Father Diabetes Hypertension Heart disease Cancer Brother Heart disease Hypertension Atrial fibrillation Obesity Grandmother AAA (abdominal aortic aneurysm) Grandfather Heart disease Grandmother Cancer Surgical History H/O shoulder surgery History of amputation of toe History of arthroscopic knee surgery History of cardiac catheterization History of coronary artery stent placement History of knee replacement History of shoulder replacement History of tonsillectomy Stented coronary artery (01/26/23) Social History Smoking Status: Never smoker alcohol intake: former substance use type: does not use ROS ROS Narrative Unable to obtain full ROS given patient's difficulty answering questions directly Vital Signs Vital Signs Vital Signs: 10/12/23 13:26 10/12/23 13:39 Temperature 96.0 F L Temperature Source Temporal Pulse Rate 151 H Respiratory Rate 23 H Respiratory Effort Normal Non-Labored Respiratory Depth Normal Respiratory Pattern Normal Blood Pressure 99/73 Blood Pressure Mean 81 Pulse Ox 95 Oxygen Delivery Method Room Air Room Air Weight Weight: 87.6 kg Body Mass Index (BMI) 32.1 Physical Exam Narrative General: Alert but has difficulty answering questions directly HEENT: Normocephalic, profoundly dry mouth Eyes: Anicteric, normal conjunctiva, extraocular movements grossly intact Neck: Supple Respiratory: Clear to auscultation bilaterally, normal respiratory effort Cardiovascular: Low-grade tachycardia GI: Soft, nontender, nondistended Extremities: No edema Musculoskeletal: Moving all extremities, has 1 toe amputated on right foot Neuro: No overt focal neurological deficits, shaking diffusely Skin: Poor hygiene on feet Psych: Attempts to be cooperative Results Lab / Micro Data 10/12/23 14:45 10/12/23 18:43 Labs: Laboratory Results - last 24 hr 10/12/23 14:45: WBC 17.4 H, RBC 6.02 H, Hgb 15.1 H, Hct 48.3 H, MCV 80.2 L, MCH 25.1 L, MCHC 31.3 L, RDW Std Deviation 50.1 H, RDW Coeff of Anali 18.6 H, Plt Count 372, MPV 11.4, Immature Gran % (Auto) 0.700, Neut % (Auto) 84.5 H, Lymph % (Auto) 5.9 L, [place] % (Auto) 8.5, Eos % (Auto) 0.2, Baso % (Auto) 0.2, Absolute Neuts (auto) 14.7 H, Absolute Lymphs (auto) 1.02, Nucleated RBC % 0, PT 22.4 H, INR 1.9, APTT 32.8, Sodium 150 H, Potassium 3.5, Chloride 117 H, Carbon Dioxide 22.0, Anion Gap 11, BUN 137 H*, Creatinine 3.05 H, Estim Creat Clear Calc 18.22, Est GFR (MDRD) Af Amer 19 L, Est GFR (MDRD) Non-Af 16 L, BUN/Creatinine Ratio 44.9 H, Glucose 319 H, Lactic Acid 3.4 H*, Calcium 10.4 H, Total Bilirubin 0.80, AST 52 H, ALT 29, Alkaline Phosphatase 156 H, Total Creatine Kinase 981 H, Troponin I High Sens 60 H, Total Protein 7.9, Albumin 2.6 L, Globulin 5.3 H, Albumin/Globulin Ratio 0.5 L Imaging Radiology Impression Brain CT 10/12/23 13:52 IMPRESSION: Chronic involutional changes of the brain. Electronically Signed: Hung Graham MD at 14:42 EST , Cervical Spine CT 10/12/23 13:55 IMPRESSION: Multilevel degenerative changes, as described above. Electronically Signed: Hung Graham MD at 14:43 EST , Elbow X-Ray 10/12/23 14:20 IMPRESSION: Arthrosis of the elbow, as described above. Electronically Signed: Hung Graham MD at 14:46 EST , Knee X-Ray 10/12/23 14:20 IMPRESSION: Status post total knee replacement. There is good alignment. Electronically Signed: Hung Graham MD at 14:45 EST , Shoulder X-Ray 10/12/23 14:20 IMPRESSION: Impacted fracture of the proximal surgical neck of the humerus with extension to the greater and lesser tuberosities. Cephalic and anterior migration of the distal fracture fragment. Electronically Signed: Hung Graham MD at 14:45 EST , Assessment & Plan Assessment/Plan (1) Acute kidney injury: (2) Asthma: (3) Atherosclerotic heart disease of [place] coronary artery without angina pectoris: (4) Hypernatremia: (5) Leukocytosis: (6) Sleep apnea: (7) Tachycardia: PLAN: Plan #YOON -Pt labs and sx consistent with dehydration and probable component of rhabdo though CK only 981 -IVF -Will obtain further w/u if not improving with current measures -I's and O's -Will hold statin given CK and clinical presentation at this time #R humerus fx -Xray in ED-right impacted fracture of proximal surgical neck of humerus with extension to greater and lesser tuberosities and cephalic and anterior migration of distal fracture fragment -PT/OT -CM c/s -Pain control -Discussed with Ortho on-call, no acute surgical intervention required but ultimately if patient wants surgery it would be indicated and she can follow-up in the office #Hx CAD -s/p stenting 01/26/23 -Cont plavix and aspirin -Will hold statin given CK and clinical presentation at this time #Elevated troponin -Troponin of 60, suspect this is all secondary to her significant dehydration and rhabdo -No CP at present # Elevated lactic acid -Will aggressively hydrate -Does have elevated white blood cell count but has increase in hemoglobin and platelets as well, unclear how much of this is due to hemoconcentration and resorption of hematoma -Will hold off on empiric antibiotics unless any localized signs or symptoms of infection or concerns arise #SANTHOSH -Continue home NIPPV if applicable #Type 2 diabetes mellitus -Glucose checks and sliding scale insulin -Holding home antihyperglycemics # Seizure disorder -Continue Keppra #Asthma -Continue inhalers # RA -Resume leflunomide tomorrow if kidney function improving and liver function stable #Hypertension -Will hold home medications given soft BP and overall presentation # Mood disorder -Continue citalopram, pt on effexor as well based on her med rec, will need to clarify with pt, dangerous to use both ssri and snri in combination so will continue celexa and hold effexor at this time -Given mental status and BP will decrease xanax dosing -Reportedly only takes 1 seroquel at night if needed, will hold at this time unless becomes necessary #DVT ppx: SCDs Elayne Baker MD Time spent in the patient's overall evaluation,decision-making process, review of diagnostic data, adjustment of management, discussion with other providers, nursing nursing and ancillary staff involved in patient's care documentation, 61 minutes Charges/Coding Visit Charges Inpatient E&M: 18427 Init Hosp L2 10/12/231933 <Electronically signed by Elayne Baker MD> Cosigner Signature (if applicable): CC: Dr. Ruel Peoples MD; Dr. Elayne Baker MD~ Signed [facility] Work Phone: 1(355) 353-372502-21-2024 History and physical note Author Elayne Baker [facility] October 12, 2023 7:34pm Note Date/Time October 12, 2023 4:47pm [facility] Medical Records Department [address] [place] [id number] H&P Exam - Hospitalist 10/12/23 1633 MR#: [id number] Acct: [id number] Name: RAJWINDER WYLIE Rep #:[id number] : 1950 73 From: Elayne Baker MD PCP: Dr. Ruel Peoples MD Status: ADM IN Location: [facility] [id number] HPI - General General Date of Admission: 10/12/23 Date of Service: 10/12/23 Chief Complaint: Fall and R arm pain HPI Narrative RAJWINDER WYLIE, is a 73-year-old female with history of hypertension, SANTHOSH, diabetes, CAD w/ hx stents, asthma, RA, seizure disorder, mood disorder presented to [facility] ED 10/12/2023 with generalized weakness after a fall that occurred 2 days ago. Thinks she tripped and fell and that shehit her head and also complained of right shoulder and knee pain that is combination of sharp, aching, stabbing and nothing makes it better or worse. Does not think she had loss of consciousness. Some urinary frequency but no dysuria and has felt feverish. In the ED she was found to have right impacted fracture of proximal surgical neck of humerus with extension to greater and lesser tuberosities and cephalic and anterior migration of distal fracture fragment on x-ray. Also found of white blood cell count of 17.4 and hemoglobin 15.1. CMP revealed sodium of 150 with a BUN of 137 and creatinine of 3.05. Trop60 and LA 3.4. Heart rate on arrival 151 with blood pressure 99/73 and respiratory rate 23. Heart rate improved to low 100s with blood pressure also improving but given patient's multiple findings hospitalist contacted for admission. Patient evaluated at bedside but is poor historian, says she does not remember what happens when she fell 2 days ago but has been down since, presently reports some right arm pain but denies pain anywhere else, reports drymouth but otherwise fairly unreliable historian [facility] Medical History Abnormal stress test Ambulates with cane Anxiety Arthritis Asthma Atherosclerotic heart disease of [place] coronary artery without angina pectoris [facility] Cardiology follow-up encounter Cataract (lens) fragments in eye following cataract surgery, bilateral CPAP (continuous positive airway pressure) dependence Depression Diabetes Dietary restriction Easy bruising First degree atrioventricular block Gout High cholesterol History of echocardiogram History of edema History of steroid therapy History of stress test Hypertension Lyme disease MRSA infection Nicotine dependence in remission Non-smoker Obesity Osteoarthritis Other shelter (current) drug therapy Post traumatic stress disorder Post-menopausal Restless legs Rheumatoid arthritis Seizures Sinus arrhythmia Sinusitis Sjogren's disease Sleep apnea Walker as ambulation aid Home Medications fluticasone 500 mcg-salmeterol 50 mcg/dose blistr powdr for inhalation (Advair Diskus) 1 puff inhalation BID shortness of breath 01/23/15 [History Last Taken 04/17/15 05:15] albuterol sulfate 90 mcg/actuation aerosol inhaler (ProAir HFA) 1 - 2 puff inhalation Q4H PRN Asthma 04/15/15 [History Last Taken Unknown] montelukast 10 mg tablet 10 mg PO QHS allergies 04/15/15 [History Last Taken Unknown] amlodipine 10 mg tablet 10 mg PO DAILY blood pressure 05/28/15 [History Last Taken 04/05/17 07:15 10 MG] atorvastatin 20 mg tablet 20 mg PO QHS cholesterol 09/23/22 [History Last Taken Unknown] citalopram 40 mg tablet 40 mg PO QHS sleep 09/23/22 [History Last Taken Unknown] empagliflozin 10 mg tablet (Jardiance) 10 mg PO DAILY diabetes 09/23/22 [History Last Taken Unknown] glipizide 5 mg tablet, extended release 24 hr 5 mg PO DAILY diabetes 09/23/22 [History Last Taken Unknown] hydrochlorothiazide 12.5 mg tablet 12.5 mg PO DAILY blood pressure 09/23/22 [History Last Taken Unknown] leflunomide 20 mg tablet 20 mg PO DAILY inflammation 09/23/22 [History Last Taken Unknown] levetiracetam 750 mg tablet,extended release 24 hr 750 mg PO DAILY seizures 09/23/22 [History Last Taken Unknown] losartan 100 mg tablet 100 mg PO QHS blood pressure 09/23/22 [History Last Taken Unknown] metformin 500 mg tablet 500 mg PO DAILY diabetes 09/23/22 [History Last Taken Unknown] ondansetron HCl 4 mg tablet 4 mg PO Q8H PRN Nausea 09/23/22 [History Last Taken Unknown] potassium chloride 20 mEq tablet,extended release 20 meq PO DAILY potassium 09/23/22 [History Last Taken Unknown] pregabalin 75 mg capsule (Lyrica) 75 mg PO DAILY pain 09/23/22 [History Last Taken Unknown] quetiapine 100 mg tablet 200 mg PO DAILY mood disorder 09/23/22 [History Last Taken Unknown] tiotropium bromide 2.5 mcg/actuation mist for inhalation (Spiriva Respimat) 2 puff inhalation DAILY shortness of breath 09/23/22 [History Last Taken Unknown] meclizine 25 mg tablet 25 mg PO BID dizziness 11/26/22 [History Last Taken Unknown] alprazolam 0.5 mg tablet 0.5 mg PO DAILY Anxiety 12/15/22 [History Last Taken Unknown] atomoxetine 80 mg capsule 80 mg PO DAILY attention 12/15/22 [History Last Taken Unknown] venlafaxine 150 mg capsule,extended release 24 hr 300 mg PO DAILY mood 12/15/22 [History Last Taken Unknown] aspirin 81 mg tablet,delayed release (Adult Low Dose Aspirin) 81 mg PO DAILY heart 01/06/23 [History Last Taken Unknown] guaifenesin 600 mg tablet, extended release 12 hr (Mucinex) 600 mg PO BID PRN congestion 04/29/23 [History Last Taken Unknown] metoprolol tartrate 25 mg tablet 25 mg PO BID blood pressure #60 tabs 04/29/23 [Rx Last Taken Unknown] prednisone 20 mg tablet 5 mg PO DAILY PRN pain 04/29/23 [History Last Taken Unknown] furosemide 40 mg tablet 40 mg PO DAILY PRN edema #30 tabs 06/24/23 [Rx Last Taken Unknown] alprazolam 0.5 mg tablet 1 mg PO QHS anxiety/sleep 10/12/23 [History Last Taken Unknown] clopidogrel 75 mg tablet (Plavix) 75 mg PO DAILY blood thinner 10/12/23 [History Last Taken Unknown] fluticasone propionate 50 mcg/actuation nasal spray,suspension 1 spray intranasal DAILY PRN allergy symptoms 10/12/23 [History Last Taken Unknown] Allergy/AdvReac Type Severity Reaction Status Date / Time Sulfa (Sulfonamide Allergy Hives Verified 10/12/23 13:26 Antibiotics) tree nut Allergy Anaphylaxis Verified 10/12/23 13:26 Rabbit AdvReac Severe NEEDS Verified 10/12/23 13:26 FOLLOW-UP sulfamethoxazole AdvReac Severe Skin Verified 10/12/23 13:26 [From Bactrim] rashes & blisters trimethoprim [From Bactrim] AdvReac Severe Skin Verified 10/12/23 13:26 rashes & blisters codeine AdvReac Other Verified 10/12/23 13:26 Environmental Allergies: AdvReac NEEDS Verified 10/12/23 13:26 Uncoded FOLLOW-UP erythromycin base AdvReac Upset Verified 10/12/23 13:26 Stomach milk [dairy] AdvReac Upset Verified 10/12/23 13:26 Stomach morphine AdvReac Nausea Verified 10/12/23 13:26 Family History Mother Diabetes Hypertension Heart disease Father Diabetes Hypertension Heart disease Cancer Brother Heart disease Hypertension Atrial fibrillation Obesity Grandmother AAA (abdominal aortic aneurysm) Grandfather Heart disease Grandmother Cancer Surgical History H/O shoulder surgery History of amputation of toe History of arthroscopic knee surgery History of cardiac catheterization History of coronary artery stent placement History of knee replacement History of shoulder replacement History of tonsillectomy Stented coronary artery (01/26/23) Social History Smoking Status: Never smoker alcohol intake: former substance use type: does not use ROS ROS Narrative Unable to obtain full ROS given patient's difficulty answering questions directly Vital Signs Vital Signs Vital Signs: 10/12/23 13:26 10/12/23 13:39 Temperature 96.0 F L Temperature Source Temporal Pulse Rate 151 H Respiratory Rate 23 H Respiratory Effort Normal Non-Labored Respiratory Depth Normal Respiratory Pattern Normal Blood Pressure 99/73 Blood Pressure Mean 81 Pulse Ox 95 Oxygen Delivery Method Room Air Room Air Weight Weight: 87.6 kg Body Mass Index (BMI) 32.1 Physical Exam Narrative General: Alert but has difficulty answering questions directly HEENT: Normocephalic, profoundly dry mouth Eyes: Anicteric, normal conjunctiva, extraocular movements grossly intact Neck: Supple Respiratory: Clear to auscultation bilaterally, normal respiratory effort Cardiovascular: Low-grade tachycardia GI: Soft, nontender, nondistended Extremities: No edema Musculoskeletal: Moving all extremities, has 1 toe amputated on right foot Neuro: No overt focal neurological deficits, shaking diffusely Skin: Poor hygiene on feet Psych: Attempts to be cooperative Results Lab / Micro Data 10/12/23 14:45 10/12/23 18:43 Labs: Laboratory Results - last 24 hr 10/12/23 14:45: WBC 17.4 H, RBC 6.02 H, Hgb 15.1 H, Hct 48.3 H, MCV 80.2 L, MCH 25.1 L, MCHC 31.3 L, RDW Std Deviation 50.1 H, RDW Coeff of Anali 18.6 H, Plt Count 372, MPV 11.4, Immature Gran % (Auto) 0.700, Neut % (Auto) 84.5 H, Lymph % (Auto) 5.9 L, [place] % (Auto) 8.5, Eos % (Auto) 0.2, Baso % (Auto) 0.2, Absolute Neuts (auto) 14.7 H, Absolute Lymphs (auto) 1.02, Nucleated RBC % 0, PT 22.4 H, INR 1.9, APTT 32.8, Sodium 150 H, Potassium 3.5, Chloride 117 H, Carbon Dioxide 22.0, Anion Gap 11, BUN 137 H*, Creatinine 3.05 H, Estim Creat Clear Calc 18.22, Est GFR (MDRD) Af Amer 19 L, Est GFR (MDRD) Non-Af 16 L, BUN/Creatinine Ratio 44.9 H, Glucose 319 H, Lactic Acid 3.4 H*, Calcium 10.4 H, Total Bilirubin 0.80, AST 52 H, ALT 29, Alkaline Phosphatase 156 H, Total Creatine Kinase 981 H, Troponin I High Sens 60 H, Total Protein 7.9, Albumin 2.6 L, Globulin 5.3 H, Albumin/Globulin Ratio 0.5 L Imaging Radiology Impression Brain CT 10/12/23 13:52 IMPRESSION: Chronic involutional changes of the brain. Electronically Signed: Hung Graham MD at 14:42 EST Reading Location ID and State: [id number] / [place] , Service support , Cervical Spine CT 10/12/23 13:55 IMPRESSION: Multilevel degenerative changes, as described above. Electronically Signed: Hung Graham MD at 14:43 EST , Elbow X-Ray 10/12/23 14:20 IMPRESSION: Arthrosis of the elbow, as described above. Electronically Signed: Hung Graham MD at 14:46 EST , Knee X-Ray 10/12/23 14:20 IMPRESSION: Status post total knee replacement. There is good alignment. Electronically Signed: Hung Graham MD at 14:45 EST , Shoulder X-Ray 10/12/23 14:20 IMPRESSION: Impacted fracture of the proximal surgical neck of the humerus with extension to the greater and lesser tuberosities. Cephalic and anterior migration of the distal fracture fragment. Electronically Signed: Hung Graham MD at 14:45 EST , Assessment & Plan Assessment/Plan (1) Acute kidney injury: (2) Asthma: (3) Atherosclerotic heart disease of [place] coronary artery without angina pectoris: (4) Hypernatremia: (5) Leukocytosis: (6) Sleep apnea: (7) Tachycardia: PLAN: Plan #YOON -Pt labs and sx consistent with dehydration and probable component of rhabdo though CK only 981 -IVF -Will obtain further w/u if not improving with current measures -I's and O's -Will hold statin given CK and clinical presentation at this time #R humerus fx -Xray in ED-right impacted fracture of proximal surgical neck of humerus with extension to greater and lesser tuberosities and cephalic and anterior migration of distal fracture fragment -PT/OT -CM c/s -Pain control -Discussed with Ortho on-call, no acute surgical intervention required but ultimately if patient wants surgery it would be indicated and she can follow-up in the office #Hx CAD -s/p stenting 01/26/23 -Cont plavix and aspirin -Will hold statin given CK and clinical presentation at this time #Elevated troponin -Troponin of 60, suspect this is all secondary to her significant dehydration and rhabdo -No CP at present # Elevated lactic acid -Will aggressively hydrate -Does have elevated white blood cell count but has increase in hemoglobin and platelets as well, unclear how much of this is due to hemoconcentration and resorption of hematoma -Will hold off on empiric antibiotics unless any localized signs or symptoms of infection or concerns arise #SANTHOSH -Continue home NIPPV if applicable #Type 2 diabetes mellitus -Glucose checks and sliding scale insulin -Holding home antihyperglycemics # Seizure disorder -Continue Keppra #Asthma -Continue inhalers # RA -Resume leflunomide tomorrow if kidney function improving and liver function stable #Hypertension -Will hold home medications given soft BP and overall presentation # Mood disorder -Continue citalopram, pt on effexor as well based on her med rec, will need to clarify with pt, dangerous to use both ssri and snri in combination so will continue celexa and hold effexor at this time -Given mental status and BP will decrease xanax dosing -Reportedly only takes 1 seroquel at night if needed, will hold at this time unless becomes necessary #DVT ppx: SCDs Elayne Baker MD Time spent in the patient's overall evaluation,decision-making process, review of diagnostic data, adjustment of management, discussion with other providers, nursing nursing and ancillary staff involved in patient's care documentation, 61 minutes Charges/Coding Visit Charges Inpatient E&M: 62198 Init Hosp L2 10/12/231933 <Electronically signed by Elayne Baker MD> Cosigner Signature (if applicable): CC: Dr. Ruel Peoples MD; Dr. Elayne Baker MD~ Signed [facility] Work Phone: 1(371) 882-100402-21-2024 Discharge summary Author Cesar Palencia [facility] October 12, 2023 4:13pm Note Date/Time October 12, 2023 2:23pm [facility] Medical Records Department [address] [place] [id number] Emergency Department Summary 10/12/23 MR#: [id number] Acct: [id number] Name: RAJWINDER WYLIE Rep #:[id number] : 1950 73 From: Cesar Escalera PCP: Dr. Ruel Peoples MD Status: REG ER Location: ED HPI HPI - Fall History of Present Illness Chief Complaint: Fall Informant: patient Occured/Mechanism Occurred: Days (2) Mechanism/Context: Yes same level fall and Yes trip Pain/Injury Pain Location: head, upper extremity (Right shoulder, right elbow) and lower extremity (Right knee) Worsened by: Nothing Relieved by: Nothing Associated Symptoms Associated Symptoms: Positive for Weakness; Negative for Parasthesias or Loss ofconsciousness Narrative Narrative: Patient presents after a fall that occurred 2 days ago. Patient thinks she tripped and fell. Patient states she hit her head. Patient complains of pain in her right shoulder and right knee. Patient describes the pain as sharp, aching, and stabbing. Patient states nothing makes her pain better and nothing makes it worse. Patient does not think she had a loss of consciousness. Patient did bite her tongue when she fell. Patient states her last tetanus was more than 10 years ago. Patient denies any chest pain or shortness of breath. Patient admits to some urinary frequency but denies any dysuria or hematuria. Patient admits to a fever. Tetanus Immunization: >10 years [facility] Medical History Abnormal stress test Ambulates with cane Anxiety Arthritis Asthma Atherosclerotic heart disease of [place] coronary artery without angina pectoris [facility] Cardiology follow-up encounter Cataract (lens) fragments in eye following cataract surgery, bilateral CPAP (continuous positive airway pressure) dependence Depression Diabetes Dietary restriction Easy bruising First degree atrioventricular block Gout High cholesterol History of echocardiogram History of edema History of steroid therapy History of stress test Hypertension Lyme disease MRSA infection Nicotine dependence in remission Non-smoker Obesity Osteoarthritis Other shelter (current) drug therapy Post traumatic stress disorder Post-menopausal Restless legs Rheumatoid arthritis Seizures Sinus arrhythmia Sinusitis Sjogren's disease Sleep apnea Walker as ambulation aid Home Medications fluticasone 500 mcg-salmeterol 50 mcg/dose blistr powdr for inhalation (Advair Diskus) 1 puff inhalation BID 01/23/15 [History Last Taken 04/17/15 05:15] fluticasone propionate 50 mcg/actuation nasal spray,suspension (Flonase) 2 sprayDAILY 01/23/15 [History Last Taken Unknown] albuterol sulfate 90 mcg/actuation aerosol inhaler (ProAir HFA) 1 - 2 puff inhalation Q4H PRN PRN Asthma 04/15/15 [History Last Taken Unknown] montelukast 10 mg tablet 10 mg PO QHS 04/15/15 [History Last Taken Unknown] amlodipine 10 mg tablet 10 mg PO DAILY 05/28/15 [History Last Taken 04/05/17 07:15 10 MG] atorvastatin 20 mg tablet 20 mg PO DAILY 09/23/22 [History Last Taken Unknown] citalopram 40 mg tablet 40 mg PO DAILY 09/23/22 [History Last Taken Unknown] empagliflozin 10 mg tablet (Jardiance) 10 mg PO DAILY 09/23/22 [History Last Taken Unknown] glipizide 5 mg tablet, extended release 24 hr 5 mg PO DAILY 09/23/22 [History Last Taken Unknown] hydrochlorothiazide 12.5 mg tablet 12.5 mg PO DAILY 09/23/22 [History Last Taken Unknown] leflunomide 20 mg tablet 20 mg PO DAILY 09/23/22 [History Last Taken Unknown] levetiracetam 750 mg tablet,extended release 24 hr 750 mg PO DAILY 09/23/22 [History Last Taken Unknown] losartan 100 mg tablet 100 mg PO DAILY 09/23/22 [History Last Taken Unknown] metformin 500 mg tablet 500 mg PO DAILY 09/23/22 [History Last Taken Unknown] ondansetron HCl 4 mg tablet 4 mg PO Q8H PRN Nausea 09/23/22 [History Last Taken Unknown] potassium chloride 20 mEq tablet,extended release 20 meq PO DAILY 09/23/22 [History Last Taken Unknown] pregabalin 75 mg capsule (Lyrica) 75 mg PO DAILY 09/23/22 [History Last Taken Unknown] quetiapine 100 mg tablet 200 mg PO DAILY 09/23/22 [History Last Taken Unknown] tiotropium bromide 2.5 mcg/actuation mist for inhalation (Spiriva Respimat) 2 puff inhalation DAILY 09/23/22 [History Last Taken Unknown] meclizine 25 mg tablet 25 mg PO BID 11/26/22 [History Last Taken Unknown] alprazolam 0.5 mg tablet 0.5 mg PO BID Anxiety 12/15/22 [History Last Taken Unknown] atomoxetine 80 mg capsule 80 mg PO DAILY 12/15/22 [History Last Taken Unknown] venlafaxine 150 mg capsule,extended release 24 hr 300 mg PO DAILY 12/15/22 [History Last Taken Unknown] aspirin 81 mg tablet,delayed release (Adult Low Dose Aspirin) 81 mg PO DAILY 01/06/23 [History Last Taken Unknown] clopidogrel 75 mg tablet (Plavix) 75 mg PO DAILY #90 tabs 02/11/23 [Rx Last Taken Unknown] guaifenesin 600 mg tablet, extended release 12 hr (Mucinex) 600 mg PO BID PRN congestion 04/29/23 [History Last Taken Unknown] metoprolol tartrate 25 mg tablet 25 mg PO BID #60 tabs 04/29/23 [Rx Last Taken Unknown] prednisone 20 mg tablet 5 mg PO DAILY PRN pain 04/29/23 [History Last Taken Unknown] furosemide 40 mg tablet 40 mg PO DAILY PRN edema #30 tabs 06/24/23 [Rx Last Taken Unknown] Allergy/AdvReac Type Severity Reaction Status Date / Time Sulfa (Sulfonamide Allergy Hives Verified 10/12/23 13:26 Antibiotics) tree nut Allergy Anaphylaxis Verified 10/12/23 13:26 Rabbit AdvReac Severe NEEDS Verified 10/12/23 13:26 FOLLOW-UP sulfamethoxazole AdvReac Severe Skin Verified 10/12/23 13:26 [From Bactrim] rashes & blisters trimethoprim [From Bactrim] AdvReac Severe Skin Verified 10/12/23 13:26 rashes & blisters codeine AdvReac Other Verified 10/12/23 13:26 Environmental Allergies: AdvReac NEEDS Verified 10/12/23 13:26 Uncoded FOLLOW-UP erythromycin base AdvReac Upset Verified 10/12/23 13:26 Stomach milk [dairy] AdvReac Upset Verified 10/12/23 13:26 Stomach morphine AdvReac Nausea Verified 10/12/23 13:26 Family History Mother Diabetes Hypertension Heart disease Father Diabetes Hypertension Heart disease Cancer Brother Heart disease Hypertension Atrial fibrillation Obesity Grandmother AAA (abdominal aortic aneurysm) Grandfather Heart disease Grandmother Cancer Surgical History H/O shoulder surgery History of amputation of toe History of arthroscopic knee surgery History of cardiac catheterization History of coronary artery stent placement History of knee replacement History of shoulder replacement History of tonsillectomy Stented coronary artery (01/26/23) Social History Smoking Status: Never smoker alcohol intake: former substance use type: does not use ROS ROS ED Constitutional Constitutional ED: Reports fever(s); Denies chills Eyes Eyes: Denies blurry vision or change in vision ENT ENT ED: Reports sore throat; Denies rhinorrhea Cardiovascular Cardiovascular: Denies chest pain or palpitations Respiratory/Chest Respiratory/Chest: Denies cough or dyspnea Gastrointestinal Gastrointestinal: Denies nausea or vomiting Genitourinary Genitourinary ED: Reports urinary frequency; Denies dysuria or hematuria Musculoskeletal Musculoskeletal: Reports back pain; Denies neck pain Integumentary Denies abscess or rash Neurologic Neurologic: Reports headache(s); Denies weakness Allergic/Immunologic Allergic/Immunologic ED: Denies mouth swelling or urticaria EXAM Physical Exam Const Vital Signs: 10/12/23 13:26 10/12/23 13:39 Temperature 96.0 F L Temperature Source Temporal Pulse Rate 151 H Respiratory Rate 23 H Respiratory Effort Normal Non-Labored Respiratory Depth Normal Respiratory Pattern Normal Blood Pressure 99/73 Blood Pressure Mean 81 Pulse Ox 95 Oxygen Delivery Method Room Air Room Air Positive well nourished and well developed General Appearance ED: well developed HEENT HEENT Narrative: Oral mucosa was dry. There is some ecchymosis of the anterior tongue. atraumatic; Negative for tenderness Eyes PERRL and EOMs intact bilaterally Neck supple Chest Wall palpation of chest normal Resp normal respiratory effort and clear to auscultation bilaterally Cardio regular rate Rhythm: abnormal rhythm ectopic beats GI non-tender and non-distended Palpation: soft Extremity Extremity Narrative: There is tenderness, edema, and ecchymosis over the right shoulder. There is tenderness over the right elbow. There is also some tenderness, mild edema, and mild ecchymosis over the right knee. There is no deformity noted. Range of motion was limited in all motions of the right shoulder, right elbow, and right knee secondary to pain. Sensation is intact to light touch bilaterally in the upper and lower extremities. Radial and pedal pulses are equal bilaterally. Strength is 5/5 bilateral in the upper and lower extremities. Neuro CN's II-XII intact bilaterally Ramona Coma Scale: document GCS findings Spontaneous Obeys Commands Confused 14 Sensorium / Orientation: alert, oriented to person and oriented to time Motor Exam: general weakness MDM MDM MDM Narrative Medical decision making narrative: Differential diagnosis includes intracranial bleeding, stroke, cardiac dysrhythmia, cardiac ischemia, electrolyte abnormality, dehydration, rhabdomyolysis, urinary tract infection, coagulopathy, proximal humerus fracture, elbow fracture, knee fracture, and contusions. EKG will be obtained to assess for cardiac dysrhythmia and cardiac ischemia. CT scan of the brain will be obtained to assess for intracranial bleeding and stroke. CT scan of the cervical spine will be obtained to assess for cervical spine fracture. X-rays of the right shoulder and right elbow will be obtained to assess for fracture or dislocation. X-rays of the right knee will be obtained to assess for fracture or dislocation. CBC will be obtained to assess for leukocytosis and anemia. Comprehensive metabolic profile will be obtained to assess for hepatic function, renal function, and electrolyte abnormality. PT with INR and PTT will be obtained to assess for coagulopathy. Serum lactate will be obtained to assess for sepsis. High-sensitivity troponin will be obtained to assess for cardiac ischemia. Urinalysis will be obtained to assess for urinary tract infection and hematuria. Total CPK will be obtained to assess for rhabdomyolysis. Lab Data Attestation: I reviewed the patient's lab results. Lab results narrative: CBC was reviewed. There is a leukocytosis of 17.4. Hemoglobin was 15.1 hematocrit was 48.3. Platelets were normal. PT was INR and PTT were reviewed. Pro time was 22.4 and INR is 1.9. PTT was normal. Comprehensive metabolic profile was reviewed. Sodium was elevated at 150 and chloride was elevated at 117. BUN was 137 and creatinine was 3.05. Glucose was elevated at 319. Anion gap was normal. Alkaline phosphatase was slightly elevated at 156. AST was slightly elevated at 52. ALT was normal. Total bilirubin was normal. High-sensitivity troponin was reviewed and was slightly elevated at 60. Labs: Laboratory Results - last 24 hr 10/12/23 14:45 WBC 17.4 H RBC 6.02 H Hgb 15.1 H Hct 48.3 H MCV 80.2 L MCH 25.1 L MCHC 31.3 L RDW Std Deviation 50.1 H RDW Coeff of Anali 18.6 H Plt Count 372 MPV 11.4 Immature Gran % (Auto) 0.700 Neut % (Auto) 84.5 H Lymph % (Auto) 5.9 L [place] % (Auto) 8.5 Eos % (Auto) 0.2 Baso % (Auto) 0.2 Absolute Neuts (auto) 14.7 H Absolute Lymphs (auto) 1.02 Nucleated RBC % 0 PT 22.4 H INR 1.9 APTT 32.8 Sodium 150 H Potassium 3.5 Chloride 117 H Carbon Dioxide 22.0 Anion Gap 11 BUN 137 H* Creatinine 3.05 H Estim Creat Clear Calc 18.22 Est GFR (MDRD) Af Amer 19 L Est GFR (MDRD) Non-Af 16 L BUN/Creatinine Ratio 44.9 H Glucose 319 H Lactic Acid 3.4 H* Calcium 10.4 H Total Bilirubin 0.80 AST 52 H ALT 29 Alkaline Phosphatase 156 H Troponin I High Sens 60 H Total Protein 7.9 Albumin 2.6 L Globulin 5.3 H Albumin/Globulin Ratio 0.5 L Radiography Diagnostic Testing: Clinical Impression(s) from Imaging Studies Brain CT 10/12/23 13:52 IMPRESSION: Chronic involutional changes of the brain. Electronically Signed: Hung Graham MD at 14:42 EST , Cervical Spine CT 10/12/23 13:55 IMPRESSION: Multilevel degenerative changes, as described above. Electronically Signed: Hung Graham MD at 14:43 EST , Elbow X-Ray 10/12/23 14:20 IMPRESSION: Arthrosis of the elbow, as described above. Electronically Signed: Hung Graham MD at 14:46 EST , Knee X-Ray 10/12/23 14:20 IMPRESSION: Status post total knee replacement. There is good alignment. Electronically Signed: Hung Graham MD at 14:45 EST , Shoulder X-Ray 10/12/23 14:20 IMPRESSION: Impacted fracture of the proximal surgical neck of the humerus with extension to the greater and lesser tuberosities. Cephalic and anterior migration of the distal fracture fragment. Electronically Signed: Hung Graham MD at 14:45 EST , CT scan of the brain was obtained. There is no acute intracranial abnormality. There are chronic involutional changes noted. This was interpreted by the radiologist and was also independently reviewed by myself. CT scan of the cervical spine was obtained. There are degenerative changes. There is no acute fracture or spondylolisthesis noted. This was interpreted by the radiologist and was also independently reviewed by myself. X-rays of the right elbow were obtained. There are 3 views. On my independent interpretation, there are some degenerative changes noted. There is no acute fracture noted. There is no dislocation noted. Radiologist also interpreted the x-rays and agrees. X-rays of the right knee were obtained. There are 4 views. On my independent interpretation, there is no acute fracture. There is a prior total knee replacement. Prosthetic parts were in normal position. Radiologist also interpreted the x- rays and agrees. X-rays of the right shoulder were obtained. There is an impacted fracture of the proximal surgical neck. There is some anterior superior displacement of the distal fragment. Radiologist also interpreted the x-rays and agrees. EKG Initial EKG: Attestation: I personally reviewed and interpreted this EKG as follows: Interpretation: Sinus Rhythm (With first-degree AV block with frequent PACs with a rate of 103) and No Acute Injury Pattern Comments: EKG was obtained. On my independent interpretation, it shows sinus tachycardia with frequent PACs. And first-degree AV block with a rate of 103. [place] interval was prolonged at 226 ms. QRS interval was normal at 88 ms. QTc interval was normal at 471 ms. [place] was normal at 0. There are no acute ST or T wave changes noted. Prior EKG tracings: available for review Prior: Unchanged (05/10/2023) Treatment and Re-Evaluation Narrative: Patient was given IV fluids. Patient was given a dose of fentanyl for pain. Patient was given a tetanus booster. Patient was advised of her findings. Patient was advised of the need for hospitalization. Patient is agreeable with this. Patient's blood pressure improved to 111/66. Patient's heart rate improved to 108. Case was discussed with the hospitalist. She will admit the patient to PCU. Patient understands and is agreeable with the plan. All questions were answered. Discharge Plan Triage Chief Complaint: Fall ED Provider: Cesar Palencia Dx/Rx/DC Orders Clinical Impression: Acute kidney injury, Fracture of proximal end of right humerus, Hypernatremia, Leukocytosis, Rhabdomyolysis, Fall Prescriptions: No Action meclizine 25 mg tablet 25 mg PO BID hydrochlorothiazide 12.5 mg tablet 12.5 mg PO DAILY citalopram 40 mg tablet 40 mg PO DAILY Patient Comments: TAKE 1 TABLET EVERY DAY levetiracetam 750 mg tablet extended release 24 hr 750 mg PO DAILY ondansetron HCl 4 mg tablet 4 mg PO Q8H PRN (Reason: Nausea) atorvastatin 20 mg tablet 20 mg PO DAILY Spiriva Respimat 2.5 mcg/actuation mist 2 puff inhalation DAILY potassium chloride 20 mEq tablet extended release 20 meq PO DAILY metformin 500 mg tablet 500 mg PO DAILY glipizide 5 mg tablet extended release 24hr 5 mg PO DAILY Jardiance 10 mg tablet 10 mg PO DAILY leflunomide 20 mg tablet 20 mg PO DAILY pregabalin [Lyrica] 75 mg capsule 75 mg PO DAILY guaifenesin [Mucinex] 600 mg tablet extended release 12hr 600 mg PO BID PRN (Reason: congestion) atomoxetine 80 mg capsule 80 mg PO DAILY venlafaxine 150 mg capsule,extended release 24hr 300 mg PO DAILY clopidogrel [Plavix] 75 mg tablet 75 mg PO DAILY Qty: 90 3RF Rx Instructions: Take 1 take 4 pills, then once a day after. prednisone 20 mg tablet 5 mg PO DAILY PRN (Reason: pain) Rx Instructions: x5days metoprolol tartrate 25 mg tablet 25 mg PO BID Qty: 60 11RF fluticasone propion-salmeterol [Advair Diskus] 1 EACH blister with device 1 puff inhalation BID Patient Comments: INHALE 1 PUFF INSTRUCTED TWICE DAILY. RINSE AND GARGLE MOUTH WITH WATER AFTER EACH USE. fluticasone propionate [Flonase] 50 mcg/actuation patch 24 hour 2 spray NASAL DAILY Patient Comments: [id number] SUSP into both nostrils montelukast 10 MG tablet 10 mg PO QHS albuterol sulfate [ProAir HFA] 1 PUFF inhaler 1 - 2 puff inhalation Q4H PRN PRN (Reason: Asthma) losartan 100 mg tablet 100 mg PO DAILY amlodipine 10 MG tablet 10 mg PO DAILY quetiapine 100 mg tablet 200 mg PO DAILY alprazolam 0.5 mg tablet 0.5 mg PO BID Rx Instructions: Take 1 tab QAM and 2 tabs at night aspirin [Adult Low Dose Aspirin] 81 mg tablet,delayed release (DR/EC) 81 mg PO DAILY furosemide 40 mg tablet 40 mg PO DAILY PRN (Reason: edema) Qty: 30 11RF Primary Care Provider: Ruel Peoples Referrals: Ruel Peoples MD [Primary Care Provider] - Disposition Disposition: Acute Care Hospital [facility] What to do if you have Problems For any increased pain, shortness of breath, bleeding, nausea or vomiting, chestpain, or any unexpected problems, contact your Primary Care Provider. Call [facility] ([phone]) or report to the closest Emergency Room. Call 911 if necessary. 10/12/23 1613 <Electronically signed by Cesar Palencia DO> Cosigner Signature (if applicable): CC: Dr. Ruel Peoples MD ~ Signed [facility] Work Phone: [phone] Discharge summary [facility] 12, 2023 4:13pm Note Date/Time October 12, 2023 2:23pm [facility] Medical Records Department [address] [place] [address] Emergency Department Summary 10/12/23 MR#: [id number] Acct: [id number] Name: RAJWINDER WYLIE Rep #:[id number] : 1950 73 From: Cesar Escalera PCP: Dr. Ruel Peoples MD Status: REG ER Location: ED HPI HPI - Fall History of Present Illness Chief Complaint: Fall Informant: patient Occured/Mechanism Occurred: Days (2) Mechanism/Context: Yes same level fall and Yes trip Pain/Injury Pain Location: head, upper extremity (Right shoulder, right elbow) and lower extremity (Right knee) Worsened by: Nothing Relieved by: Nothing Associated Symptoms Associated Symptoms: Positive for Weakness; Negative for Parasthesias or Loss ofconsciousness Narrative Narrative: Patient presents after a fall that occurred 2 days ago. Patient thinks she tripped and fell. Patient states she hit her head. Patient complains of pain in her right shoulder and right knee. Patient describes the pain as sharp, aching, and stabbing. Patient states nothing makes her pain better and nothing makes it worse. Patient does not think she had a loss of consciousness. Patient did bite her tongue when she fell. Patient states her last tetanus was more than 10 years ago. Patient denies any chest pain or shortness of breath. Patient admits to some urinary frequency but denies any dysuria or hematuria. Patient admits to a fever. Tetanus [facility]ization: >10 [facility] History Abnormal stress test Ambulates with cane Anxiety Arthritis Asthma Atherosclerotic heart disease of [place] coronary artery without angina pectoris [facility] Cardiology follow-up encounter Cataract (lens) fragments in eye following cataract surgery, bilateral CPAP (continuous positive airway pressure) dependence Depression Diabetes Dietary restriction Easy bruising First degree atrioventricular block Gout High cholesterol History of echocardiogram History of edema History of steroid therapy History of stress test Hypertension Lyme disease MRSA infection Nicotine dependence in remission Non-smoker Obesity 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 Post traumatic stress disorder Post-menopausal Restless legs Rheumatoid arthritis Seizures Sinus arrhythmia Sinusitis Sjogren's disease Sleep apnea Walker as ambulation aid Home Medications fluticasone 500 mcg-salmeterol 50 mcg/dose blistr powdr for inhalation (Advair Diskus) 1 puff inhalation BID 01/23/15 [History Last Taken 04/17/15 05:15] fluticasone propionate 50 mcg/actuation nasal spray,suspension (Flonase) 2 sprayDAILY 01/23/15 [History Last Taken Unknown] albuterol sulfate 90 mcg/actuation aerosol inhaler (ProAir HFA) 1 - 2 puff inhalation Q4H PRN PRN Asthma 04/15/15 [History Last Taken Unknown] montelukast 10 mg tablet 10 mg PO QHS 04/15/15 [History Last Taken Unknown] amlodipine 10 mg tablet 10 mg PO DAILY 05/28/15 [History Last Taken 04/05/17 07:15 10 MG] atorvastatin 20 mg tablet 20 mg PO DAILY 09/23/22 [History Last Taken Unknown] citalopram 40 mg tablet 40 mg PO DAILY 09/23/22 [History Last Taken Unknown] empagliflozin 10 mg tablet (Jardiance) 10 mg PO DAILY 09/23/22 [History Last Taken Unknown] glipizide 5 mg tablet, extended release 24 hr 5 mg PO DAILY 09/23/22 [History Last Taken Unknown] hydrochlorothiazide 12.5 mg tablet 12.5 mg PO DAILY 09/23/22 [History Last Taken Unknown] leflunomide 20 mg tablet 20 mg PO DAILY 09/23/22 [History Last Taken Unknown] levetiracetam 750 mg tablet,extended release 24 hr 750 mg PO DAILY 09/23/22 [History Last Taken Unknown] losartan 100 mg tablet 100 mg PO DAILY 09/23/22 [History Last Taken Unknown] metformin 500 mg tablet 500 mg PO DAILY 09/23/22 [History Last Taken Unknown] ondansetron HCl 4 mg tablet 4 mg PO Q8H PRN Nausea 09/23/22 [History Last Taken Unknown] potassium chloride 20 mEq tablet,extended release 20 meq PO DAILY 09/23/22 [History Last Taken Unknown] pregabalin 75 mg capsule (Lyrica) 75 mg PO DAILY 09/23/22 [History Last Taken Unknown] quetiapine 100 mg tablet 200 mg PO DAILY 09/23/22 [History Last Taken Unknown] tiotropium bromide 2.5 mcg/actuation mist for inhalation (Spiriva Respimat) 2 puff inhalation DAILY 09/23/22 [History Last Taken Unknown] meclizine 25 mg tablet 25 mg PO BID 11/26/22 [History Last Taken Unknown] alprazolam 0.5 mg tablet 0.5 mg PO BID Anxiety 12/15/22 [History Last Taken Unknown] atomoxetine 80 mg capsule 80 mg PO DAILY 12/15/22 [History Last Taken Unknown] venlafaxine 150 mg capsule,extended release 24 hr 300 mg PO DAILY 12/15/22 [History Last Taken Unknown] aspirin 81 mg tablet,delayed release (Adult Low Dose Aspirin) 81 mg PO DAILY 01/06/23 [History Last Taken Unknown] clopidogrel 75 mg tablet (Plavix) 75 mg PO DAILY #90 tabs 02/11/23 [Rx Last Taken Unknown] guaifenesin 600 mg tablet, extended release 12 hr (Mucinex) 600 mg PO BID PRN congestion 04/29/23 [History Last Taken Unknown] metoprolol tartrate 25 mg tablet 25 mg PO BID #60 tabs 04/29/23 [Rx Last Taken Unknown] prednisone 20 mg tablet 5 mg PO DAILY PRN pain 04/29/23 [History Last Taken Unknown] furosemide 40 mg tablet 40 mg PO DAILY PRN edema #30 tabs 06/24/23 [Rx Last Taken Unknown] Allergy/AdvReac Type Severity Reaction Status Date / Time Sulfa (Sulfonamide Allergy Hives Verified 10/12/23 13:26 Antibiotics) tree nut Allergy Anaphylaxis Verified 10/12/23 13:26 Rabbit AdvReac Severe NEEDS Verified 10/12/23 13:26 FOLLOW-UP sulfamethoxazole AdvReac Severe Skin Verified 10/12/23 13:26 [From Bactrim] rashes & blisters trimethoprim [From Bactrim] AdvReac Severe Skin Verified 10/12/23 13:26 rashes & blisters codeine AdvReac Other Verified 10/12/23 13:26 Environmental Allergies: AdvReac NEEDS Verified 10/12/23 13:26 Uncoded FOLLOW-UP erythromycin base AdvReac Upset Verified 10/12/23 13:26 Stomach milk [dairy] AdvReac Upset Verified 10/12/23 13:26 Stomach morphine AdvReac Nausea Verified 10/12/23 13:26 Family History Mother Diabetes Hypertension Heart disease Father Diabetes Hypertension Heart disease Cancer Brother Heart disease Hypertension Atrial fibrillation Obesity Grandmother AAA (abdominal aortic aneurysm) Grandfather Heart disease Grandmother Cancer Surgical History H/O shoulder surgery History of amputation of toe History of arthroscopic knee surgery History of cardiac catheterization History of coronary artery stent placement History of knee replacement History of shoulder replacement History of tonsillectomy Stented coronary artery (01/26/23) Social History Smoking Status: Never smoker alcohol intake: former substance use type: does not use ROS ROS ED Constitutional Constitutional ED: Reports fever(s); Denies chills Eyes Eyes: Denies blurry vision or change in vision ENT ENT ED: Reports sore throat; Denies rhinorrhea Cardiovascular Cardiovascular: Denies chest pain or palpitations Respiratory/Chest Respiratory/Chest: Denies cough or dyspnea Gastrointestinal Gastrointestinal: Denies nausea or vomiting Genitourinary Genitourinary ED: Reports urinary frequency; Denies dysuria or hematuria Musculoskeletal Musculoskeletal: Reports back pain; Denies neck pain Integumentary Denies abscess or rash Neurologic Neurologic: Reports headache(s); Denies weakness Allergic/Immunologic Allergic/Immunologic ED: Denies mouth swelling or urticaria EXAM Physical Exam Const Vital Signs: 10/12/23 13:26 10/12/23 13:39 Temperature 96.0 F L Temperature Source Temporal Pulse Rate 151 H Respiratory Rate 23 H Respiratory Effort Normal Non-Labored Respiratory Depth Normal Respiratory Pattern Normal Blood Pressure 99/73 Blood Pressure Mean 81 Pulse Ox 95 Oxygen Delivery Method Room Air Room Air Positive well nourished and well developed General Appearance ED: well developed HEENT HEENT Narrative: Oral mucosa was dry. There is some ecchymosis of the anterior tongue. atraumatic; Negative for tenderness Eyes PERRL and EOMs intact bilaterally Neck supple Chest Wall palpation of chest normal Resp normal respiratory effort and clear to auscultation bilaterally Cardio regular rate Rhythm: abnormal rhythm ectopic beats GI non-tender and non-distended Palpation: soft Extremity Extremity Narrative: There is tenderness, edema, and ecchymosis over the right shoulder. There is tenderness over the right elbow. There is also some tenderness, mild edema, and mild ecchymosis over the right knee. There is no deformity noted. Range of motion was limited in all motions of the right shoulder, right elbow, and right knee secondary to pain. Sensation is intact to light touch bilaterally in the upper and lower extremities. Radial and pedal pulses are equal bilaterally. Strength is 5/5 bilateral in the upper and lower extremities. Neuro CN's II-XII intact bilaterally [place] Coma Scale: document GCS findings Spontaneous Obeys Commands Confused 14 Sensorium / Orientation: alert, oriented to person and oriented to time Motor Exam: general weakness MDM MDM MDM Narrative Medical decision making narrative: Differential diagnosis includes intracranial bleeding, stroke, cardiac dysrhythmia, cardiac ischemia, electrolyte abnormality, dehydration, rhabdomyolysis, urinary tract infection, coagulopathy, proximal humerus fracture, elbow fracture, knee fracture, and contusions. EKG will be obtained to assess for cardiac dysrhythmia and cardiac ischemia. CT scan of the brain will be obtained to assess for intracranial bleeding and stroke. CT scan of the cervical spine will be obtained to assess for cervical spine fracture. X-rays of the right shoulder and right elbow will be obtained to assess for fracture or dislocation. X-rays of the right knee will be obtained to assess for fracture or dislocation. CBC will be obtained to assess for leukocytosis and anemia. Comprehensive metabolic profile will be obtained to assess for hepatic function, renal function, and electrolyte abnormality. PT with INR and PTT will be obtained to assess for coagulopathy. Serum lactate will be obtained to assess for sepsis. High-sensitivity troponin will be obtained to assess for cardiac ischemia. Urinalysis will be obtained to assess for urinary tract infection and hematuria. Total CPK will be obtained to assess for rhabdomyolysis. Lab Data Attestation: I reviewed the patient's lab results. Lab results narrative: CBC was reviewed. There is a leukocytosis of 17.4. Hemoglobin was 15.1 hematocrit was 48.3. Platelets were normal. PT was INR and PTT were reviewed. Pro time was 22.4 and INR is 1.9. PTT was normal. Comprehensive metabolic profile was reviewed. Sodium was elevated at 150 and chloride was elevated at 117. BUN was 137 and creatinine was 3.05. Glucose was elevated at 319. Anion gap was normal. Alkaline phosphatase was slightly elevated at 156. AST was slightly elevated at 52. ALT was normal. Total bilirubin was normal. High-sensitivity troponin was reviewed and was slightly elevated at 60. Labs: Laboratory Results - last 24 hr 10/12/23 14:45 WBC 17.4 H RBC 6.02 H Hgb 15.1 H Hct 48.3 H MCV 80.2 L MCH 25.1 L MCHC 31.3 L RDW Std Deviation 50.1 H RDW Coeff of Anali 18.6 H Plt Count 372 MPV 11.4 Immature Gran % (Auto) 0.700 Neut % (Auto) 84.5 H Lymph % (Auto) 5.9 L [place] % (Auto) 8.5 Eos % (Auto) 0.2 Baso % (Auto) 0.2 Absolute Neuts (auto) 14.7 H Absolute Lymphs (auto) 1.02 Nucleated RBC % 0 PT 22.4 H INR 1.9 APTT 32.8 Sodium 150 H Potassium 3.5 Chloride 117 H Carbon Dioxide 22.0 Anion Gap 11 BUN 137 H* Creatinine 3.05 H Estim Creat Clear Calc 18.22 Est GFR (MDRD) Af Amer 19 L Est GFR (MDRD) Non-Af 16 L BUN/Creatinine Ratio 44.9 H Glucose 319 H Lactic Acid 3.4 H* Calcium 10.4 H Total Bilirubin 0.80 AST 52 H ALT 29 Alkaline Phosphatase 156 H Troponin I High Sens 60 H Total Protein 7.9 Albumin 2.6 L Globulin 5.3 H Albumin/Globulin Ratio 0.5 L Radiography Diagnostic Testing: Clinical Impression(s) from Imaging Studies Brain CT 10/12/23 13:52 IMPRESSION: Chronic involutional changes of the brain. Electronically Signed: Hung Graham MD at 14:42 EST , Cervical Spine CT 10/12/23 13:55 IMPRESSION: Multilevel degenerative changes, as described above. Electronically Signed: Hung Graham MD at 14:43 EST , Elbow X-Ray 10/12/23 14:20 IMPRESSION: Arthrosis of the elbow, as described above. Electronically Signed: Hung Graham MD at 14:46 EST , Knee X-Ray 10/12/23 14:20 IMPRESSION: Status post total knee replacement. There is good alignment. Electronically Signed: Hung Graham MD at 14:45 EST , Shoulder X-Ray 10/12/23 14:20 IMPRESSION: Impacted fracture of the proximal surgical neck of the humerus with extension to the greater and lesser tuberosities. Cephalic and anterior migration of the distal fracture fragment. Electronically Signed: Hung Graham MD at 14:45 EST , CT scan of the brain was obtained. There is no acute intracranial abnormality. There are chronic involutional changes noted. This was interpreted by the radiologist and was also independently reviewed by myself. CT scan of the cervical spine was obtained. There are degenerative changes. There is no acute fracture or spondylolisthesis noted. This was interpreted by the radiologist and was also independently reviewed by myself. X-rays of the right elbow were obtained. There are 3 views. On my independent interpretation, there are some degenerative changes noted. There is no acute fracture noted. There is no dislocation noted. Radiologist also interpreted the x-rays and agrees. X-rays of the right knee were obtained. There are 4 views. On my independent interpretation, there is no acute fracture. There is a prior total knee replacement. Prosthetic parts were in normal position. Radiologist also interpreted the x- rays and agrees. X-rays of the right shoulder were obtained. There is an impacted fracture of the proximal surgical neck. There is some anterior superior displacement of the distal fragment. Radiologist also interpreted the x-rays and agrees. EKG Initial EKG: Attestation: I personally reviewed and interpreted this EKG as follows: Interpretation: Sinus Rhythm (With first-degree AV block with frequent PACs with a rate of 103) and No Acute Injury Pattern Comments: EKG was obtained. On my independent interpretation, it shows sinus tachycardia with frequent PACs. And first-degree AV block with a rate of 103. [place] interval was prolonged at 226 ms. QRS interval was normal at 88 ms. QTc interval was normal at 471 ms. [place] was normal at 0. There are no acute ST or T wave changes noted. Prior EKG tracings: available for review Prior: Unchanged (05/10/2023) Treatment and Re-Evaluation Narrative: Patient was given IV fluids. Patient was given a dose of fentanyl for pain. Patient was given a tetanus booster. Patient was advised of her findings. Patient was advised of the need for hospitalization. Patient is agreeable with this. Patient's blood pressure improved to 111/66. Patient's heart rate improved to 108. Case was discussed with the hospitalist. She will admit the patient to PCU. Patient understands and is agreeable with the plan. All questions were answered. Discharge Plan Triage Chief Complaint: Fall ED Provider: Cesar Palencia Dx/Rx/DC Orders Clinical Impression: Acute kidney injury, Fracture of proximal end of right humerus, Hypernatremia, Leukocytosis, Rhabdomyolysis, Fall Prescriptions: No Action meclizine 25 mg tablet 25 mg PO BID hydrochlorothiazide 12.5 mg tablet 12.5 mg PO DAILY citalopram 40 mg tablet 40 mg PO DAILY Patient Comments: TAKE 1 TABLET EVERY DAY levetiracetam 750 mg tablet extended release 24 hr 750 mg PO DAILY ondansetron HCl 4 mg tablet 4 mg PO Q8H PRN (Reason: Nausea) atorvastatin 20 mg tablet 20 mg PO DAILY Spiriva Respimat 2.5 mcg/actuation mist 2 puff inhalation DAILY potassium chloride 20 mEq tablet extended release 20 meq PO DAILY metformin 500 mg tablet 500 mg PO DAILY glipizide 5 mg tablet extended release 24hr 5 mg PO DAILY Jardiance 10 mg tablet 10 mg PO DAILY leflunomide 20 mg tablet 20 mg PO DAILY pregabalin [Lyrica] 75 mg capsule 75 mg PO DAILY guaifenesin [Mucinex] 600 mg tablet extended release 12hr 600 mg PO BID PRN (Reason: congestion) atomoxetine 80 mg capsule 80 mg PO DAILY venlafaxine 150 mg capsule,extended release 24hr 300 mg PO DAILY clopidogrel [Plavix] 75 mg tablet 75 mg PO DAILY Qty: 90 3RF Rx Instructions: Take 1 take 4 pills, then once a day after. prednisone 20 mg tablet 5 mg PO DAILY PRN (Reason: pain) Rx Instructions: x5days metoprolol tartrate 25 mg tablet 25 mg PO BID Qty: 60 11RF fluticasone propion-salmeterol [Advair Diskus] 1 EACH blister with device 1 puff inhalation BID Patient Comments: INHALE 1 PUFF INSTRUCTED TWICE DAILY. RINSE AND GARGLE MOUTH WITH WATER AFTER EACH USE. fluticasone propionate [Flonase] 50 mcg/actuation patch 24 hour 2 spray NASAL DAILY Patient Comments: [id number] SUSP into both nostrils montelukast 10 MG tablet 10 mg PO QHS albuterol sulfate [ProAir HFA] 1 PUFF inhaler 1 - 2 puff inhalation Q4H PRN PRN (Reason: Asthma) losartan 100 mg tablet 100 mg PO DAILY amlodipine 10 MG tablet 10 mg PO DAILY quetiapine 100 mg tablet 200 mg PO DAILY alprazolam 0.5 mg tablet 0.5 mg PO BID Rx Instructions: Take 1 tab QAM and 2 tabs at night aspirin [Adult Low Dose Aspirin] 81 mg tablet,delayed release (DR/EC) 81 mg PO DAILY furosemide 40 mg tablet 40 mg PO DAILY PRN (Reason: edema) Qty: 30 11RF Primary Care Provider: Ruel Peoples Referrals: Ruel Peoples MD [Primary Care Provider] - Disposition Disposition: Acute Care Hospital [facility] What to do if you have Problems For any increased pain, shortness of breath, bleeding, nausea or vomiting, chestpain, or any unexpected problems, contact your Primary Care Provider. Call [facility] ([phone]) or report to the closest Emergency Room. Call 911 if necessary. 10/12/231612 <Electronically signed by Cesar Palencia DO> Cosigner Signature (if applicable): CC: Dr. Ruel Peoples MD ~ Signed [facility] Work Phone: [phone] 292-242211-30-2023 Miscellaneous Notes* Telephone Encounter - Fany Painter - 07/21/2023 3:24 PM EST PATIENT ALSO EXPRESSED THAT HER CPAP MACHINE [...] to the pharmacy. Please call patient at: [phone] Fany Cruz documented in [facility] encounterM[facility]11-29-[facility]23 History of Present illness Narrative* Suzie Ernst RPFT - 07/20/2023 3:02 PM EST PULM FUNCTION SMARTBLOCK: Provider: Analia Rivera PA-C Assisting Tech: Suzie Ernst RPFT Spirometry: 1 DLCO: 1 LV - Box: 1 documented in this encounterMorrow [facility] Hospital11-29-2023 History of Present illness Narrative* Analia Rivera PA-C - 07/20/2023 3:01 PM EST Images from the original note were not included. Patient: Rajwinder Wylie PCP: Davion Peoples MD CC: follow up HPI: Rajwinder Wylie 73 year old female former 10 pack year smoker with PMH significant for asthma, SANTHOSH on CPAP, RA, Sjogren's, CAD, s/p PCI 01/26/[address] [facility], HTN and pulmonary nodularity. 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 Did have [...] no new nodules. Established with a new panelboard tank pumper at [facility] and was started on Enbrel. However, she [...] to be CPAP compliant. RA (rheumatoid arthritis) ([facility]) 2014 Sinus arrhythmia 05/16/2013 Outside post 911 follow-up screening, 2012. Sinusitis Sjogren's disease ([facility]) Allergies: Bactrim [Sulfametho* Hives Erythromycin [...] 1 tablet by mouth twice daily.^Disp: 180 tablet^Rfl:3 Mucus Clearing Device jeannine^Provide 1 mucus clearing [...] via nebulizer one time only for 1 dose.OVER 5-15 MINUTES FOR WHEEZING OR SHORTNESS OF BREATH^Disp: 2.5 mL^Rfl: 0 predniSONE (DELTASONE) 10 mg tablet^2 DAILY FOR 1 WEEK THEN 1 TAB DAILY FOR 1 WEEK. KEEP REMAINDER ON HAND FOR FUTURE FLARES^Disp: 60 tablet^Rfl: 1 venlafaxine ER (EFFEXOR XR) 150 mg 24 hr capsule^300 mg once daily.^Disp: ^Rfl: fluticasone (FLONASE) 50 mcg/actuation nasal spray^Use 1 Maxton in each nostril once daily.^Disp: 1 Bottle^Rfl: [...] upper abdomen. Fatty infiltration of the pancreas. Physician Office Specialist (topogram) images: No additional findings. ASSESSMENT/PLAN: 1. [...] necessary. Analia Rivera PA-C documented in this encounterMorrow [facility] Hospital11-10-2023 History of Present illness Narrative* Dane Weinstein RT(R) - 07/01/2023 3:40 PM EST Radiology Service Progress Note PATIENT NAME: Rajwinder Wylie DATE OF SERVICE: July 01, 2023 TIME: 4:14 PM PATIENT IDENTITY VERIFICATION COMPLETED USING TWO (2) IDENTIFIERS: Name and Date of confirmedby patient verbally. FALL SCREENING: Has the patient had 2 falls in the last year or 1 fall with injury or currently using an Ambulatory Assistive Device (Walker, Cane, Wheelchair, Crutches, etc.)? No PATIENT GENDER DATA: Female. status: : No status: NO. PATIENT RELEVANT IMPLANT DATA REVIEWED: Yes RADIOLOGY DEPARTMENT: CT; Exam(s) Completed: Chest PERIPHERAL IV DATA: Not applicable SIGNED BY: RT Dyana(Candie) July 01, 2023 4:14 PM documented in this encounterMorrow [facility] Hospital10-13-2023 Miscellaneous Notes* Telephone Encounter - Tonia Gutierrez Ma - 06/03/2023 2:57 PM EDT Patient contacted via telephone regarding upcoming NEW patient appointment with Dr. Valencia on 06/06/23. Patient informed of the following: [facility] calling regarding your upcoming appointment with Dr. Valencia. Please complete the assigned pre-visit questionnaires on [employer] prior to your appointment. To avoid a delay in your care, please bring any radiology images that have been [facility] on a disk to be viewed at your appointment. Dr. Valencia is an Interventional Pain Management provider specializing in the Spine. Please be aware that this appointment is a consult only and narcotics will NOT be prescribed. He treats with physicaltherapy, injections of the spine or joints, and non-narcotic medications. Dr. Valencia will not take over and manage any medications that are already being prescribed by another provider. Dr. Valencia does not fill disability or any other insurance-related forms/documentation Patient verbalized understanding with no additional questions at this time. documented in this encounterMorrow [facility] Hospital10-10-2023 History of Present illness Narrative* Salena Calderon RT(Candie) - 05/31/2023 10:00 AM EDT Radiology Service Progress Note PATIENT NAME: Rajwinder Wylie DATE OF SERVICE: May 31, 2023 TIME: 10:22 AM PATIENT IDENTITY VERIFICATION COMPLETED USING TWO (2) IDENTIFIERS: Name and Date of confirmedby patient verbally. FALL SCREENING: Has the patient had 2 falls in the last year or 1 fall with injury or currently using an Ambulatory Assistive Device (Walker, Cane, Wheelchair, Crutches, etc.)? Yes, Patient High Riskfor Falls What interventions were put in place to prevent falls during this visit? Instructed Patient to Callfor Help if Needed, Offered Assistance with Transfers/Clothing, Instructed Patient to Remain Seated(Not on Exam Table) Until Exam, and Increased Observations by Caregivers PATIENT GENDER DATA: Female. status: : No status: NO. PATIENT RELEVANT IMPLANT DATA REVIEWED: Yes RADIOLOGY DEPARTMENT: MR; Exam(s) Completed: Spine: Lumbar spine PERIPHERAL IV DATA: Not applicable SIGNED BY: RT Bee(Candie) May 31, 2023 10:22 AM documented in this encounterMorrow [facility] Hospital08-31-2023 Miscellaneous Notes* Telephone Encounter - Suzanne Larsen MA - 04/21/2023 9:27 AM EDT Reply from [facility] : Outcome PA was already submitted for this patient and drug which was denied.;CaseId:[id number];Status:Denied;Appeal Information: Attention:ATTN: CLINICAL APPEALS DEPARTMENT [facility] [place] ; I am starting an appeal: Appeal : APPROVED from 04/21/2023-04/21/2024. . Pt will be notified of this through insurance. Nothing further needed * Telephone Encounter - Suzanne Larsen MA - 04/21/2023 9:25 AM EDT Noted. Thank you In light of the below reply, a new Prior auth was started on [facility]. Await reply. If denied again , we will start an appeal. Suzanne Larsen MA * Telephone Encounter - Jessica Victor LPN - 04/20/2023 9:58 AM EDT Images from the original note were not included. Kandice Jung APRN.[employer] [facility] [place] Nurse Lyrica used to treat neuropathy possibly secondary to chemical exposure at [facility]. Last noted in OV with Dr. Gudino on 04/24/21. * Telephone Encounter - Suzanne Larsen MA - 04/19/2023 1:55 PM EDT Images from the original note were not included. I completed a prior auth for the Lyrica. Insurance replied back as a DENIAL: Please review and advise if this was related to [facility] ? documented in this encounterMorrow County Hospital08-29-2023 Miscellaneous Notes* Telephone Encounter - Kandice Jung APRN.CNP - 04/19/2023 6:53 AM EDT PDMP website checked and validated. All prescriptions have been APPROPRIATELY filled. No suspiciousactivity was identified. April 19, 2023 Kandice Jung APRN.CNP * Telephone Encounter - Julisa Townsend LPN - 04/18/2023 3:19 PM EDT Patient has been identified by name and [...] No concerns regarding mask fit or pressure. Continueto remain complaint with PAP and clean and replace equipment regularly. M54.50 Low back pain, unspecified back pain laterality, unspecified chronicity, unspecified whethersciatica present M54.31 Sciatica of right side Comment: Continues to follow with [facility]. Lyrica 100mg BID. H93.13 Tinnitus of both ears R42 Vertigo Comment: Pt reporting increase in intensity of constant tinnitus. Tinnitus present since 9-11. Alsonoting vertigo. MRI brain completed since time of last appointment and was unremarkable (stable lipoma). Currently following with ENT for workup for possible Meniere's. Audiogram scheduled for February. Continue follow up with ENT. Kandice Jung APRN.CNP I spent a total of 45 minutes on the date of the service which included preparing to see the patient, [id number] patient care, completing clinical documentation, obtaining and/or reviewing separately obtained history, performing a medically appropriate examination, counseling and educating the pat ient/family/caregiver, and ordering medications, tests, or procedures. RX INSTRUCTIONS: Julisa Townsend LPN * Telephone Encounter - Katherine Townsend LPN - 04/18/2023 2:10 PM EDT Patient has been identified by name and [...] you. Katherine Townsend LPN documented in this encounterMorrow [facility] Hospital08-28-2023 Miscellaneous Notes* Telephone Encounter - Mary Hubbard RN - 04/18/2023 2:31 PM EDT Patient phones requesting refills as follows: Requested Prescriptions Pending Prescriptions Disp Refills fluticasone-salmeterol (ADVAIR DISKUS) 500-50 mcg/dose dsdv 3 Each 3 Sig: Inhale 1 Puff as instructed twice daily. Please review and advise. Mary Hubbard RN documented in this encounterMorrow [facility] Hospital08-17-2023 Miscellaneous Notes* Telephone Encounter - Celia Jenkins LPN - 04/07/2023 8:32 AM EDT Patient phones requesting refills as follows: Requested Prescriptions Pending Prescriptions Disp Refills montelukast (SINGULAIR) 10 mg tablet [Pharmacy Med Name: MONTELUKAST SODIUM TABS 10MG] 90 tablet 3 Sig: TAKE 1 TABLET DAILY AT BEDTIME Please review and advise. Celia Jenkins LPN documented in this encounterMorrow [facility] Hospital07-07-2023 History of Present illness Narrative* Lili Johnson RT(R) - 02/25/2023 10:40 AM EDT Radiology Service Progress Note PATIENT NAME: Rajwinder Wylie DATE OF SERVICE: February 25, 2023 TIME: 11:03 AM PATIENT IDENTITY VERIFICATION COMPLETED USING TWO (2) IDENTIFIERS: Name and Date of confirmedby patient verbally. FALL SCREENING: Has the patient [...] RT Melquiades(R) February 25, 2023 11:03 AM documented in this encounterMorrow County Hospital07-07-2023 History of Present illness Narrative* Analia Rivera PA-C - 02/25/2023 10:01 AM EDT Images from the original note were not included. Patient: Rajwinder Wylie PCP: Davion Peoples MD CC: acute visit HPI: Rajwinder Wylie 72 year old female female former 10 pack year smoker with PMH significant forasthma, SANTHOSH on CPAP, RA, Sjogren's, CAD, s/p PCI 01/26/[address] [facility], HTN and pulmonary nodularity. 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 Did have [...] no improvement in symptoms despite treatment. Reports non- productive cough. Had been taking Mucinex without any relief. Frequent wheezing. Increased dyspnea with minimal exertion. States she is sweating constantly. No documented fevers. PAST MEDICAL HISTORY Diagnosis Date Asthma First degree heart block 05/16/2013 Outside post 9-11 follow-up screening, 2012. Hypertension 05/16/2013 Lyme disease Meniere disease Obesity 05/16/2013 SANTHOSH (obstructive sleep apnea) 05/16/2013 CPAP 11. Claims to be CPAP compliant. RA (rheumatoid arthritis) ([facility]) 2013 Sinus arrhythmia 05/16/2013 Outside post 9-11 follow-up screening, 2012. Sinusitis Sjogren's disease ([facility]) Allergies: Bactrim [Sulfametho* Hives Erythromycin GI Upset, Vomiting Nut - Unspecified Anaphylaxis Comment:Tree Nuts. Anaphylaxis. Environmentals [Oth* Unknown Comment:Dust, tobacco, pollen, ragweed Pineapple Other: See Comments Comment:Causes mouth to feel like razors guaiFENesin (MUCINEX) 600 mg 12 hr tablet^Take 1 tablet by mouth twice daily.^Disp: 180 tablet^Rfl:3 Mucus Clearing Device jeannine^Provide 1 mucus clearing [...] mg by mouth once daily.^Disp: ^Rfl: CPAP^In-line [employer] - Respironics Device. Lifetime supplies.^Disp: 1 Device^Rfl: [...] via nebulizer one time only for 1 dose.OVER 5-15 MINUTES FOR WHEEZING OR SHORTNESS OF BREATH^Disp: 2.5 mL^Rfl: 0 predniSONE (DELTASONE) 10 mg tablet^2 DAILY FOR 1 WEEK THEN 1 TAB DAILY FOR 1 WEEK. KEEP REMAINDER ON HAND FOR FUTURE FLARES^Disp: 60 tablet^Rfl: 1 venlafaxine ER (EFFEXOR XR) 150 mg 24 hr capsule^300 mg once daily.^Disp: ^Rfl: fluticasone (FLONASE) 50 mcg/actuation nasal spray^Use 1 Maxton in each nostril once daily.^Disp: 1 Bottle^Rfl: [...] and 2010 RECONSTRUCTION ROTATOR CUFF AVULSION CHRONIC 1990 TONSILLECTOMY & ADENOIDECTOMY AGE 13/> I reviewed [...] Signed On 04-22-2022 16:31:45 EDT by Hailey Eden M.D. CT chest, 05/31/2022 IMPRESSION: 1. Interval [...] (HCC) - ICD9: 710.2, ICD10: M35.00 At [facility] for development of bronchiectasis. 7. SANTHOSH [...] necessary. Analia Rivera PA-C documented in this encounterMorrow County Hospital07-07-2023 Nurse Note* Celia Jenkins LPN - 02/25/2023 10:01 AM EDT 02/11- saw PCP and started 40mg of prednisone x5 days. 02/13- Started Doxycyline 100mg BID x7 days 02/13- PCP extended taper of prednisone, started 30mg today documented in this encounterMorrow [facility] Hospital06-07-2023 Evaluation note* Diagnosis Onset Date Resolution Status Preop cardiovascular exam ac crow Hypertension chronic Hyperlipidemia acute Stented coronary artery January 26, 2023 ac crow Tachycardia acute Atherosclerotic heart diseas e of [place] coronary artery without angina pectoris chronic Hypertension [facility] Work Phone: 1(825) 453-243406-07-2023 Evaluation note* Diagnosis Onset Date Resolution Status Hyperlipidemia acute Stented coronary artery January 26, 2023 ac crow Tachycardia acute Atherosclerotic heart diseas e of [place] coronary artery without angina pectoris chronic Hypertension [facility] Work Phone: 1(871) 745-756206-07-2023 Evaluation note* Diagnosis Onset Date Resolution Status Hyperlipidemia acute Stented coronary artery January 26, 2023 ac crow Tachycardia acute Atherosclerotic heart diseas e of [place] coronary artery without angina pectoris chronic Hypertension chronic Hyperlipidemia acute Lightheadedness acute Stented coronary artery January 26, 2023 ac crow Tachycardia acute Hypertension [facility] Work Phone: 1(875) 337-920006-07-2023 Evaluation note* Diagnosis Onset Date Resolution Status Hyperlipidemia acute Lightheadedness acute Stented coronary artery January 26, 2023 ac crow Tachycardia acute Hypertension chronic Hyperlipidemia acute Stented coronary artery January 26, 2023 ac crow Tachycardia acute Hypertension [facility] Work Phone: 1(934) 522-406106-07-2023 Evaluation note* Diagnosis Onset Date Resolution Status Hyperlipidemia acute Stented coronary artery January 26, 2023 ac crow Tachycardia acute Hypertension [facility] Work Phone: 1(271) 871-917106-07-2023 Evaluation note* Diagnosis Onset Date Resolution Status Hyperlipidemia acute Stented coronary artery January 26, 2023 ac crow Tachycardia acute Hypertension chronic Acute kidney injury acute Fall acute Fracture of proximal end of right humerus acute Hypernatremia acute Leukocytosis acute Rhabdomyolysis acute Tachycardia acute Asthma chronic Atherosclerotic heart diseas e of [place] coronary artery without angina pectoris chronic Sleep apnea [facility] Work Phone: 1(708) 421-287206-06-2023 Miscellaneous Notes* Telephone Encounter - Celia Jenkins LPN - 01/25/2023 1:05 PM EDT Records sent to [facility]. Celia Jenkins LPN * Telephone Encounter - Joann Nj LPN - 01/25/2023 12:18 PM EDT Patient called in requesting her pulm records be sent to [facility] at fax number [phone] due to being informed that her 05/02 benefits are at risk of being lost without records. Patient will be presenting to office to sign transfer of records. 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 Joann Nj LPN documented in this encounterMorrow County Hospital05-25-2023 History and physical note Author Dr. Blue [facility] January 13, 2023 9:47am Note Date/Time January 12, 2023 2:29p [facility] Medical Records Department [address] [place] [address] History & Physical Exam 01/12/23 1423 MR#: [id number] Acct: [id number] Name: RAJWINDER WYLIE Rep #:[id number] : 1950 72 From: Barbara GUTIERREZ PCP: Dr. Ruel Peoples MD [place]: [place] [facility] Location: [facility] History and Physical Date of Admission: 01/26/23 HPI History of Present Illness Details: This is a 72-year-old lady who presents today for a cardiac catheterization. Shehas a history of previous nonobstructive coronary artery disease but calcification, hypertension and arthritis.? She has been complaining of some dizziness lightheadedness presyncope.? She says that she had an echocardiogram performed last year which demonstrated preserved left ventricular systolic function.? She has not had any cardiac symptoms and has been on treatment for her hypertension.? She may be undergoing orthopedic surgery and wants to have a preoperative cardiac evaluation.? She therefore came to us for further evaluation and management.? She has had mild dizziness but no diaphoresis no near syncope or syncope.? She did undergo an echocardiogram which was technically difficult but demonstrated normal ejection fraction of 70% mild aortic sclerosis with a peak gradient of 17 mmHg and mean gradient of 11 mmHg. Intake Vital Signs See EMR Allergies See EMR Medications See EMR Ejection fraction %: 65 to 70 PFSH Medical History?(Updated 12/15/22 @ 15:31 by Shirley Escalante) Asthma Atherosclerotic heart disease of [place] coronary artery without angina pectoris First degree atrioventricular block Gout Hypertension Lyme disease Nicotine dependence in remission Obesity Other shelter (current) drug therapy Post traumatic stress disorder Rheumatoid arthritis Sinus arrhythmia Sinusitis Sjogren's disease Sleep apnea Surgical History?(Updated 11/26/22 @ 14:25 by Theron Oliver) H/O shoulder surgery History of arthroscopic knee surgery History of tonsillectomy Family History?(Updated 11/26/22 @ 14:28 by Theron Oliver) Mother Diabetes Hypertension Heart diseaseFather Diabetes Hypertension Heart disease CancerBrother Heart disease Hypertension Atrial fibrillation ObesityGrandmother AAA (abdominal aortic aneurysm)Grandfather Heart diseaseGrandmother Cancer Social History?(Updated 11/26/22 @ 14:28 by Theron Oliver) Smoking Status:? Former smoker alcohol intake:? former substance use type:? does not use ROS Const Const: Positive for fatigue, weakness and daytime sleepiness; Negative for headache(s), frequent falls, difficulty sleeping or excessive sweating Eyes Eyes: Negative for loss of peripheral vision, transient loss of vision, blurry vision, double vision or tunnel vision ENT ENT: Positive for dizziness; Negative for headache(s), Nosebleed/epistaxis or balance problems Cardio Chest Pain: No Palpitations: Yes (infrequently) feels like its: fast Edema: Bilateral (Mild) Muscle aches with walking: None Resp Respiratory: Positive for SOB with activity; Negative for SOB at rest, SOB orthopnea\SOB lying down, Cough or paroxysmal nocturnal dyspnea GI GI: Negative nausea, vomiting, heartburn or black,tarry stools : Negative for hematuria Musc Musc: Positive for muscle weakness and joint pain; Negative for muscle aches/ myalgia or balance problems Skin Skin: Negative non-healing lesions, rash or unusual bruising Neuro Neuro: Positive for dizziness, lightheadedness, near syncope, syncope (Passed out most recently in July 2022) and weakness; Negative for frequent falls, headache(s), blurry vision, double vision or lack of coordination Neil Hematologic/Lymphatic: Negative for easy bleeding or easy bruising Endo Endo: Positive for fatigue; Negative for excessive sweating or increased thirst/drinking Psych Psych: Negative for anxiety or depression Allergy Allergy/Immunology: Negative for hives and Negative for rash Cardiology Exam Const Appearance: cooperative, healthy appearing, no acute distress, well developed and well groomed Nutritional Appearance: average body habitus and well nourished Orientation: alert, awake and oriented x3 Head Head: normal to inspection, normocephalic and atraumatic Ears: hearing grossly normal bilaterally and external ears normal Nose: external nose normal, nares normal, nasal mucous membranes and turbinates normal, septum normal and no nasal discharge Face and Sinus: face symmetric Mouth: oral mucosae normal, tongue normal, oropharynx normal and moist mucous membranes Teeth and gingiva: dentition normal Throat: posterior oropharynx normal, tonsils normal and uvula midline Eyes General: appearance normal, both eyes and all related structures Eyelids: eyelids normal Conjunctivae: conjunctivae normal Pupils: PERRL, normal by confrontation and accommodation normal EOM: EOM intact bilaterally Neck Neck: normal visual inspection, trachea midline and no JVD JVD: +5 Carotids: normal carotid upstroke and bounding pulses Chest Chest inspection: normal inspection of the chest, symmetric chest movement and normal respiratory effort Auscultation: Bilateral: Clear to Auscultation Cardio Palpation: normal PMI Rate: regular rate Rhythm: regular rhythm Heart sounds: S1 normal, S2 normal and normal, physiologic split S2; Negative rub, gallop or murmur GI GI: normal to inspection, soft, no hepatosplenomegaly and bowel sounds present Neuro General: patient alert, patient awake, patient oriented x3, gait normal, moves all extremities and no focal sensory deficit Skin Skin: no rashes or lesions noted Extremities Pulses: Normal: Right Femoral Pulse, Left Femoral Pulse, Right Dorsalis Pedis Pulse, Left Dorsalis Pedis Pulse, Right Posterior Tibial Pulse, Left Posterior Tibial Pulse, Right Radial Pulse and Left Radial Pulse Lower Extremity Edema: None: Bilateral Musculoskel Musculoskeletal: No joint tenderness Psych Psychological: normal affect Supplemental Info Supplemental Information Stress Test 01/06/2023: Pharmacologic myocardial perfusion stress test. 72-year-old lady with a history of syncope Resting EKG demonstrates normal sinus rhythm with a rate of 96 bpm. Resting blood pressure is 119/80 mmHg. 0.4 mg of regadenoson was infused per usual protocol followed by rapid intravenous saline flush injection. Continuous EKG monitoring was performed. The maximum heart rate was 137 bpm which was 91% of max impacted heart rate the maximum workload was 1 metabolic equivalent. At rest there were no ST or T wave changes noted to suggest ischemia and at peak infusion nonspecific ST changes were noted which did not meet the criteria for ischemia. No clinical angina is noted. The final blood pressure was 110/72 mmHg. Myocardial perfusion protocol. 14.8 mCi of technetium 99m sestamibi was injected at rest. 0.4 mg of regadenoson was infused per usual protocol. At peak infusion 45.7 mCi of technetium 99m sestamibi was injected stress images were obtained stress and rest images were reconstructed and compared in the short axis vertical long and horizontal long axis. Gated images were also obtained. Perfusion SPECT analysis: Review of the stress images demonstrate normal uptake of tracer noted in all areas of the myocardium except for the anterior wall with some reduction of perfusion. The resting images similar demonstrated normal uptake of tracer noted in all areas of the myocardium. A small amount of anterior ischemia cannot be completely excluded. Gated SPECT analysis: The gated ejection fraction is 67%. Conclusion: Abnormal pharmacologic myocardial perfusion stress test with mild anterior ischemia. Preserved ejection fraction. Assessment and Plan Assessment and Plan (1) Abnormal stress test ?Status:?Plan: Patients most recent stress test from 01/06/2023 demonstrated an abnormal pharmacologic myocardial perfusion stress test with mild anterior ischemia. She will proceed with a cardiac catheterization to further assess her coronary arteries. Depending on results, further recommendations will be made. (2) Hypertension: ?Status:?Chronic ?Plan: She does have a history of hypertension.? Her blood pressure is under good control I would not recommend that we make any changes at this particular time. 01/12/23 0922 <Electronically signed by Barbara GUTIERREZ> Cosigner Signature (if applicable): 01/13/23 8971 <Electronically signed by Gus Blue MD> CC: MATT Beth; Dr. Ruel Peoples MD; Dr. Gus Blue MD~ Signed [facility] Work Phone: 1(671) 623-691405-15-2023 Miscellaneous Notes* Telephone Encounter - Celia Jenkins LPN - 01/03/2023 2:26 PM EDT Patient scheduled by PAULA. Celia Jenkins LPN documented in this encounterM[facility] Hospital05-04-[facility]23 History of Present illness Narrative* Kandice Jung APRN.[employer]KE [employer]TER - 12/23/2022 10:00 AM EDT Images from the original note were not included. [facility] [place] Follow-up Visit Follow-up note December 23, 2022 [...] unspecified back pain laterality, unspecified chronicity, unspecified whethersciatica present M54.31 Sciatica of right side Comment: Following with [facility]. Continue Lyrica 100mg BID. Has Sjogren's [...] doubled and is constant. Still following with [facility] for her low back. Will be having surgery on R elbow and shoulder after fall. Two weeks later fell and tore a ligamentin her wrist. Following with Dr. Blue for [...] to be CPAP compliant. RA (rheumatoid arthritis) ([facility]) 2013 Sinus arrhythmia 05/16/2013 Outside post 9-11 follow-up screening, 2012. Sinusitis Sjogren's disease (HCC) PAST SURGICAL HISTORY Procedure Laterality Date ANES ARTHROSCOPIC TOTAL SHOULDER REPLACEMENT Left 04/05/2017 Cory KNEE ARTHROSCOP MENISCUS REPAIR MED/LAT 1998 and 2010 RECONSTRUCTION ROTATOR CUFF AVULSION CHRONIC 1990 TONSILLECTOMY & ADENOIDECTOMY AGE 13/> Current Outpatient [...] via nebulizer one time only for 1 dose.OVER 5-15 MINUTES FOR WHEEZING OR SHORTNESS OF BREATH predniSONE (DELTASONE) 10 mg tablet 2 DAILY FOR 1 WEEK THEN 1 TAB DAILY FOR 1 WEEK. KEEP REMAINDER ON HAND FOR FUTURE FLARES venlafaxine ER (EFFEXOR XR) 150 mg 24 hr capsule 300 mg once daily. fluticasone (FLONASE) 50 mcg/actuation nasal spray Use 1 Maxton in each nostril once daily. losartan (COZAAR) [...] absence of clear chronic motor axon loss changesin S1-myotome muscles suggests the possibility of an [...] Staff Review Reviewed by Erin Bell MD ([id number]) Protein, Urine Random 0 - 20 mg/dL 5 Albumin, Urine (Prot Electro) % 35.7 Alpha 1 Globulin, Urine % 4.3 Alpha 2 Globulin, Urine % 26.1 Beta Globulin, Urine % 22.4 Gamma Globulin, Urine % 11.5 Interpretation (Urine Electro) SEE COMMENT Staff Review (Urine Electro) Reviewed by Erin Bell MD ([id number]) Hemoglobin A1C 4.3 - 5.6 % 6.8 [...] No concerns regarding mask fit or pressure. Continueto remain complaint with PAP and clean and replace equipment regularly. M54.50 Low back pain, unspecified back pain laterality, unspecified chronicity, unspecified whethersciatica present M54.31 Sciatica of right side Comment: Continues to follow with [facility]. Lyrica 100mg BID. H93.13 Tinnitus of both ears R42 Vertigo Comment: Pt reporting increase in intensity of constant tinnitus. Tinnitus present since 9-11. Alsonoting vertigo. MRI brain completed since time of last appointment and was unremarkable (stable lipoma). Currently following with ENT for workup for possible Meniere's. Audiogram scheduled for February. Continue follow up with ENT. Kandice Jung APRN.[employer]KE C[employer]TER I spent a total of 45 minutes on the date of the service which included preparing to see the patient, [id number] patient care, completing clinical documentation, obtaining and/or reviewing separately obtained history, performing a medically appropriate examination, counseling and educating the pat ient/family/caregiver, and ordering medications, tests, or procedures. PDMP website checked and validated. All prescriptions have been APPROPRIATELY filled. No suspiciousactivity was identified. December 23, 2022 Kandice Jung APRN.YEAST CAKE CUTTER documented in this encounterM[facility] Hospital03-27-2023 History of Present illness Narrative* Donnell Cabrera MD - 11/15/2022 4:41 PM EDT HPI Rajwinder Wylie is a 72 year [...] audiogram question hydrops will call with result Donnell Cabrera MD Findings will be communicated to the referring physician via mail or electronic medical record. documented in this encounterMorrow [facility] Hospital12-05-2022 Miscellaneous Notes* Telephone Encounter - Becky Diop MA - 07/26/2022 8:41 AM EST Patient has been identified by name and [...] advise. Becky Diop MA documented in this encounterMorrow [facility] Hospital11-21-2022 Miscellaneous Notes* Telephone Encounter - Dane Kurtis TURCIOS - 07/12/2022 4:59 PM EST Faxed order signed by Dr. Eden for Shawn [facility]. Dane Kurtis TURCIOS documented in this encounterMorrow County Hospital10-10-2022 History of Present illness Narrative* Hailey Eden MD - 05/31/2022 2:45 PM EDT . [facility] [place] Note Patient name: Rajwinder Wylie PCP: Davion Peoples MD CC: follow-up chest CT HPI: Rajwinder Wylie 71 year old female former 10 pack year smoker with PMH significant for asthma, SANTHOSH on CPAP, RA, Sjogren's, HTN and pulmonary nodularity. 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 Did had [...] DATE OF EXAM: Mar 10 2022 1:13PM [facility] - CT CHEST WO IVCON / [...] DATE OF EXAM: May 31 2022 2:31PM [facility] - CT CHEST WO IVCON / [...] mm left upper lobe subpleural nodule (5, 37).Interval improvement in previously noted groundglass consolidative opacity posterior right lower lobe with mild residual curvilinear opacity remaining, likely curvilinear atelectasis/scarring. Significant interval improvement in patchy groundglass consolidative opacity in the posterior left lower lobe subpleuralregion. Linear atelectasis/scarring in the left lower lobe. [...] Outside post 9-11 follow-up screening, 2012. Hypertension Hypertension 05/16/2013 Lyme disease Meniere disease Obesity 05/16/2013 SANTHOSH (obstructive sleep apnea) 05/16/2013 CPAP 11. Claims to be CPAP compliant. RA (rheumatoid arthritis) ([facility]) 2013 Sinus arrhythmia 05/16/2013 Outside post 9-11 follow-up screening, 2012. Sinusitis Sjogren's disease ([facility]) ALLERGIES Allergen Reactions Bactrim [Sulfametho* [...] 1 tablet by mouth twice daily.^Disp: 180 tablet^Rfl:3 montelukast (SINGULAIR) 10 mg tablet^Take 1 tablet [...] via nebulizer one time only for 1 dose.OVER 5-15 MINUTES FOR WHEEZING OR SHORTNESS OF BREATH^Disp: 2.5 mL^Rfl: 0 predniSONE (DELTASONE) 10 mg tablet^2 DAILY FOR 1 WEEK THEN 1 TAB DAILY FOR 1 WEEK. KEEP REMAINDER ON HAND FOR FUTURE FLARES^Disp: 60 tablet^Rfl: 1 venlafaxine ER (EFFEXOR XR) 150 mg 24 hr capsule^300 mg once daily.^Disp: ^Rfl: fluticasone (FLONASE) 50 mcg/actuation nasal spray^Use 1 Maxton in each nostril once daily.^Disp: 1 Bottle^Rfl: [...] -At risk for development of bronchiectasis Hailey Eden MD [facility] [place] documented in this encounterMorrow [facility] Hospital10-03-2022 Miscellaneous Notes* Telephone Encounter - Jesica Galo LPN - 05/24/2022 3:16 PM EDT Information faxed per pt request. Jesica Galo LPN * Telephone Encounter - Jesica Galo LPN - 05/24/2022 11:17 AM EDT Patient aware the Lyrica was escripted to the pharmacy. Patient requesting to have any recent health information faxed to the [facility] handling her care since . Jesica Galo LPN documented in this encounterMorrow [facility] Hospital09-08-2022 Miscellaneous Notes* Telephone Encounter - Terrance Ackerman Pss - 04/29/2022 11:02 AM EDT FYI The patient had blood work done with her PCP's office. The patient is calling and having the lab results faxed to the [place] office. * Telephone Encounter - Terrance Ackerman Pss - 04/29/2022 10:08 AM EDT Received a request from [facility] for a 90 day supply rx by fax. Spoke with the patient and she is hoping that she can have a 90 day supply. Physician: Kandice Jung CNP Call from pharmacy requesting refill. Please E-Scribe Last OV: 01/07/22 with Kandice Jung CNP Future OV: none schedule at this time with Dr. Gudino or Kandice Jung CNP. Requested Prescriptions Pending Prescriptions Disp Refills levETIRAcetam ER (KEPPRA XR) 750 mg 24 hr tablet 90 tablet 1 Sig: Take 1 tablet by mouth once daily. Pharmacy Name: [facility] Phone #: [phone] Terrance Ackerman 01/07/22 Assessment/Plan: G62.9 Neuropathy (primary encounter diagnosis) Comment: Stable and controlled with use of Lyrica 100mg BID and Keppra XR k750mg. Notes only occasional breakthrough pains but otherwise feels pain is well controlled. Discussed increase in Lyrica asnoted below but will hold off at this [...] unspecified back pain laterality, unspecified chronicity, unspecified whethersciatica present M54.31 Sciatica of right side Comment: Following with [facility]. Continue Lyrica 100mg BID. Office Visit on 01/07/22 MRI BRAIN WO IVCON documented in this encounterMorrow [facility] Hospital09-01-2022 History of Present illness Narrative* Analia Rivera PA-C - 04/22/2022 2:30 PM EDT [facility] [place], 04/22/2022: Name: Rajwinder Wylie : 1950 The [...] likely consistent with Covid infection, however, Dr. Eden prescribed Doxycycline to cover atypical infection just [...] Skin: No rash. Otherwise negative. IMMUNIZATIONS Prevnar - 06/26/2018 Pneumovax 23 - 05/06/2020, 06/20/2018, [...] FEF75 (L/sec) 0.47 0.17 1.25 0.51 109 HYZ26-76 (L/sec) 1.90 0.87 3.37 1.92 101 PEF [...] minutes prior to activities associated with shortness ofbreath, and as needed for rescue relief of [...] answers. Analia Rivera PA-C documented in this encounterMorrow County Hospital09-01-2022 Nurse Note* Celia Jenkins LPN - 04/22/2022 2:29 PM EDT Intake information documented in the prior visit with ADI Murillo today. documented in this encounterMorrow [facility] Hospital09-01-2022 History of Present illness Narrative* ADI Murillo - 04/22/2022 2:26 PM EDT PULM FUNCTION SMARTBLOCK: Provider: Analia Rivera PA-C Assisting Tech: ADI Murillo Spirometry: 1 documented in this encounterMorrow County Hospital08-26-2022 Miscellaneous Notes* Telephone Encounter - Esperanza Veliz MA - 04/16/2022 4:37 PM EDT RX INSTRUCTIONS: Pharmacy initiated this request. No need to notify patient. Last OV: 01/07/22 with KD Last refill: 04/24/21 With 90 and 1 refills Follow up: No F/U scheduled at this time Esperanza Veliz MA documented in this encounterMorrow [facility] Hospital07-25-2022 Miscellaneous Notes* Telephone Encounter - Kandice Jung APRN.CNP - 03/15/2022 4:51 PM EDT PDMP website checked and validated. All prescriptions have been APPROPRIATELY filled. No suspiciousactivity was identified. March 15, 2022 Kandice Jung APRN.[employer]KE C[employer]TER * Telephone Encounter - ZAHIRA Sotomayor - 03/15/2022 4:37 PM EDT Patient has been identified by name and date of : Yes Pharmacy phones for refill(s): Pending Prescriptions Disp Refills PREGABALIN 100 MG CAPSULE 60 capsule 2 Sig: TAKE 1 CAPSULE BY MOUTH TWICE DAILY FOR 90 DAYS. YUN Class: C-V DINORA: Yes Date of last office visit in Neurology: RAMIRO 01/07/22 with KD Appointment scheduled 04/15/22 with KD RAMIRO Notes: Assessment/Plan: G62.9 Neuropathy (primary encounter diagnosis) Comment: Stable and controlled with use of Lyrica 100mg BID and Keppra XR k750mg. Notes only occasional breakthrough pains but otherwise feels pain is well controlled. Discussed increase in Lyrica asnoted below but will hold off at this [...] unspecified back pain laterality, unspecified chronicity, unspecified whethersciatica present M54.31 Sciatica of right side Comment: Following with [facility]. Continue Lyrica 100mg BID. Last 2 Encounter Wt Readings: Date: Wt: 01/07/2022 100.8 kg (222 lb 3.2 oz) 11/06/2021 102.5 kg (226 lb) Please advise. Thank you. ZAHIRA Sotomayor documented in this encounterMorrow County Hospital07-22-2022 Miscellaneous Notes* Telephone Encounter - Hailey Eden MD - 03/12/2022 1:53 PM EDT Spoke with Rajwinder regarding her most recent [...] will send in a prescription for doxycycline tocover atypical infection just to be cautious. documented in this encounterMorrow County Hospital07-21-2022 Miscellaneous Notes* Telephone Encounter - Celia Jenkins LPN - 03/11/2022 10:56 AM EDT Reschedule information given to PSS. Celia Jenkins LPN * Telephone Encounter - Celia Jenkins LPN - 03/11/2022 10:45 AM EDT Per SUMMER, Okay to reschedule annual appt/miya when patient is healed. Celia Jenkins LPN * Telephone Encounter - Mary Hubbard RN - 03/11/2022 10:07 AM EDT Patient calls and reports she fell and broke her rib. Patient has an appt today with testing and does not feel like she can complete testing d/t pain from fractured rib. Patient asking if it's ok to continue appt today without testing or if she should totally reschedule when rib heals. documented in this encounterMorrow County Hospital07-20-2022 History of Present illness Narrative* Dane Crawford, (R) - 03/10/2022 1:00 PM EDT Radiology Service Progress Note PATIENT NAME: Rajwinder Wylie DATE OF SERVICE: March 10, 2022 TIME: 2:07 PM PATIENT IDENTITY VERIFICATION COMPLETED USING TWO (2) IDENTIFIERS: Name and Date of confirmedby patient verbally. FALL SCREENING: Has the patient [...] 10, 2022 2:07 PM documented in this encounterMorrow County Hospital06-03-2022 History of Present illness Narrative* ANTONIO Gamboa) - 01/22/2022 1:00 PM EDT Radiology Service Progress Note PATIENT NAME: Rajwinder Wylie DATE OF SERVICE: January 22, 2022 TIME: 1:07 PM PATIENT IDENTITY VERIFICATION COMPLETED USING TWO (2) IDENTIFIERS: Name and Date of confirmedby patient verbally. FALL SCREENING: Has the patient [...] 22, 2022 1:07 PM documented in this encounterMorrow County Hospital05-19-2022 History of Present illness Narrative* Kandice Jung APRN.YE[employer] CAKE CUTTER - 01/07/2022 2:30 PM EDT Images from the original note were not included. 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 5. Low back pain, unspecified back pain laterality, unspecified chronicity, unspecified whether sciatica present - ICD9: 724.2, ICD10: M54.50 Continue to follow with [facility]. Increasing Lyrica to 100mg BID as above. Sometimes will wake up overnight to use the bathroom and will not find equipment to put it back on.Sometimes she falls asleep on the couch watching [...] her head. No other change in characteristics besidesfrequency. No changes in severity but headaches lasting longer than before. States these started back up a few months ago. Left ear canal smaller than R; feels this could potentially contribute. Had COVID after ; was deployed to [place]. Having difficulty with speech following infection. Notes expressive aphasia. Feels like eyes are bulging out. Still taking Keppra 750mg. Wants records faxed to [facility] physicians. States Dr. Peoples recommended that [...] of 5 hours and 26 minutes. Settings meanpressure 10.8cm H2O, average peak pressure 16.3. AHI of 3.7. Avg time in large leak 44 seconds. PAST MEDICAL HISTORY Diagnosis Date Asthma First degree heart block 05/16/2013 Outside post 05-02 follow-up screening, 2012. Hypertension Hypertension 05/16/2013 Lyme disease Meniere disease Obesity 05/16/2013 SANTHOSH (obstructive sleep apnea) 05/16/2013 CPAP 11. Claims to be CPAP compliant. RA (rheumatoid arthritis) ([facility]) 2013 Sinus arrhythmia 05/16/2013 Outside [...] via nebulizer one time only for 1 dose.OVER 5-15 MINUTES FOR WHEEZING OR SHORTNESS OF [...] (FLONASE) 50 mcg/actuation nasal spray Use 1 Maxton in each nostril once daily. losartan (COZAAR) [...] absence of clear chronic motor axon loss changesin S1-myotome muscles suggests the possibility of an [...] Staff Review Reviewed by Erin Bell MD ([id number]) Protein, Urine Random 0 - 20 mg/dL 5 Albumin, Urine (Prot Electro) % 35.7 Alpha 1 Globulin, Urine % 4.3 Alpha 2 Globulin, Urine % 26.1 Beta Globulin, Urine % 22.4 Gamma Globulin, Urine % 11.5 Interpretation (Urine Electro) SEE COMMENT Staff Review (Urine Electro) Reviewed by Erin Bell MD ([id number]) Hemoglobin A1C 4.3 - 5.6 % 6.8 [...] is well controlled. Discussed increase in Lyrica asnoted below but will hold off at this [...] unspecified back pain laterality, unspecified chronicity, unspecified whethersciatica present M54.31 Sciatica of right side Comment: Following with [facility]. Continue Lyrica 100mg BID. Office Visit on 01/07/22 MRI BRAIN VENKAT Jung APRN.YE[employer]KE CUTTER I spent a total of 40 minutes on the date of the service which included preparing to see the patient, [id number] patient care, completing clinical documentation, obtaining and/or reviewing separately obtained history, performing a medically appropriate examination, counseling and educating the pat ient/family/caregiver and ordering medications, tests, or procedures. PDMP website checked and validated. All prescriptions have been APPROPRIATELY filled. No suspiciousactivity was identified. January 07, 2022 Kandice Jung APRN.YEAST CAKE CUTTER documented in this encounterMorrow [facility] Hospital05-11-2022 Miscellaneous Notes* Telephone Encounter - Rodrigo Lamb MD - 12/30/2021 3:32 PM EDT Annual visit to evaluate symptoms spirometry and surveillance CT Chest recommended at 02/2021 Pulmonary visit. Orders placed for spirometry and chest CT. Appointment with Analia Rivera PA-C or Hailey Eden MD in [place]. * Telephone Encounter - Celia Jenkins LPN - 12/28/2021 3:36 PM EDT Will need orders placed. Celia Jenkins LPN * Telephone Encounter - Dane Hull LPN - 12/28/2021 3:30 PM EDT Patient calling to schedule pulmonary CT scan and breahting test. States she keeps getting reminders from [facility] to do the testing. Dane Hull LPN documented in this encounterMorrow County Hospital03-18-2022 History of Present illness Narrative* Darien Gudino Jr., MD - 11/06/2021 2:52 PM EDT ESTABLISHED PATIENT VISIT CHIEF COMPLAINT: Follow Up HISTORY OF PRESENT ILLNESS: Rajwinder Wylie is a 71 year old female, BMI 37.04 kg/m2 with a PMH significant for and per last neuro appt on 06/09/21: M54.50 Low back pain, unspecified back pain laterality, unspecified chronicity, unspecified whethersciatica present (primary encounter diagnosis) M54.31 Sciatica of right side Comment: Patient noting intermittent low back pain as well as pain in R leg which feels like she issitting on a lego. EMG/NCV completed since previous visit noting possible S1 radiculopathy. Per patient, recent XR completed of both cervical and lumbar spine through [facility]. Will attempt to obtain records for review. In interim will have patient begin physical therapy for low back andleg pain. 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 Pt has also had 2 toes amputated since I last saw her (2nd toe on each foot). Numbness and tingling now resolved since on Lyrica 75mgBID - no side effects. Also on Keppra. Lumbar pain stable. Note compression fx going back to 5th grade. Pain no better. Still following with [facility]. Also having phantom pain where R [...] disturbance, mood disorder and recent psychosocial stressors. HEMATOLOGIC/LYMPHATIC/IMMUNOLOGIC:Negative for prolonged bleeding, bruising easily or swollen [...] via nebulizer one time only for 1 dose.OVER 5-15 MINUTES FOR WHEEZING OR SHORTNESS OF [...] (FLONASE) 50 mcg/actuation nasal spray Use 1 Maxton in each nostril once daily. losartan (COZAAR) [...] 0.15 % (205.5 mcg) spry Use 1 Maxton in each nostril twice daily. HISTORIES PAST MEDICAL HISTORY Diagnosis Date Asthma First degree heart block 05/16/2013 Outside post 05-02 follow-up screening, 2012. Hypertension Hypertension 05/16/2013 Lyme disease Meniere disease Obesity 05/16/2013 SANTHOSH (obstructive sleep apnea) 05/16/2013 CPAP 11. Claims to be CPAP compliant. 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 Advised not to drive or operate heavy [place] if sleepy. 5. Low back pain, unspecified back pain laterality, unspecified chronicity, unspecified whether sciatica present - ICD9: 724.2, ICD10: M54.50 Continue to follow with [facility]. Increasing Lyrica to 100mg BID as above. Darien Gudino MD I spent 40+ minutes in the visit, with more than 50% of the total pvif-[id number] time of the visit incounseling / coordination of care. PDMP website checked and validated. All prescriptions have been APPROPRIATELY filled. No suspiciousactivity was identified. 11/06/2021 by Darien Gudino MD documented in this encounterMorrow County HospitalEvalutrinity health note* Diagnosis Neuropathy- Primary Mononeuritis of unspecified site RLS (restless legs syndrome) Restless legs syndrome (RLS) Nonintractable episodic headache, unspecified headache type SANTHOSH (obstructive sleep apnea) Obstructive sleep apnea (adult) (pediatric) Low back pain, unspecified back pain laterality, unspecified chronicity, unspecified whether sciatica present Sciatica of right side Sciatica documented in this encounter [facility] noteNo assessment information availableWUniversity Hospitals [facility] Work Phone: Evaluation note* Diagnosis Severe persistent asthma without complication- Primary Lung nodules Other nonspecific abnormal finding of lung field documented in this encounter [facility]* Diagnosis Neuropathy- Primary Mononeuritis of unspecified [...] right side Sciatica documented in this encounter [facility]* Diagnosis Transient cerebral ischemia, unspecified type Aphasia Balance problems Other symptoms involving nervous and musculoskeletal systems documented [facility] this encounter [facility]* Diagnosis Lung nodules Other nonspecific abnormal finding of lung field documented in this encounter [facility]* Diagnosis Neuropathy Mononeuritis of unspecified site RLS (restless legs syndrome) Restless legs syndrome (RLS) Nonintractable episodic headache, unspecified headache type SANTHOSH (obstructive sleep apnea) Obstructive sleep apnea (adult) (pediatric) Sciatica of right side Sciatica documented in this encounter [facility]* Diagnosis RLS (restless legs syndrome) Restless legs syndrome (RLS) Neuropathy Mononeuritis of unspecified site Nonintractable episodic headache, unspecified headache type [facility] Diagnosis Severe persistent asthma without complication- Primary [facility] Diagnosis Severe persistent asthma without complication- Primary Lung nodules Other nonspecific abnormal finding of lung field SANTHOSH (obstructive sleep apnea) Obstructive sleep apnea (adult) (pediatric) Dyspnea and respiratory abnormalities Other dyspnea and respiratory abnormality documented in this encounter [facility]* Diagnosis RLS (restless legs syndrome) Restless legs syndrome (RLS) Neuropathy Mononeuritis of unspecified site Nonintractable episodic headache, unspecified headache type [facility] Diagnosis Lung nodules- Primary Other nonspecific abnormal finding of lung field Severe persistent asthma without complication COVID-19 long hauler Sjogren's syndrome, with unspecified organ involvement (HCC) [facility]* Diagnosis RLS (restless legs syndrome) Restless legs syndrome (RLS) Neuropathy Mononeuritis of unspecified site Nonintractable episodic headache, unspecified headache type documented in this encounter [facility]* Diagnosis Tinnitus, left ear- Primary Vertigo Dizziness and giddiness documented in this encounter [facility]* Diagnosis Neuropathy- Primary Mononeuritis of unspecified [...] Dizziness and giddiness [facility] Diagnosis Onset Date Resolution Status Preop cardiovascular exam ac crow Hypertension chronic [facility] Work Phone: Evaluation note* Diagnosis Dyspnea and respiratory abnormalities- Primary Other dyspnea and respiratory abnormality Acute bronchitis, unspecified organism Sinobronchitis Unspecified sinusitis (chronic) Severe persistent asthma without complication COVID-19 long hauler Sjogren's syndrome, with unspecified organ involvement (HCC) SANTHOSH (obstructive sleep apnea) Obstructive sleep apnea (adult) (pediatric) Lung nodule Solitary pulmonary nodule [facility] Acute bronchitis, unspecified organism Sinobronchitis Unspecified sinusitis (chronic) [facility] Diagnosis Severe persistent asthma without complication [facility] Diagnosis Neuropathy Mononeuritis of unspecified site RLS (restless legs syndrome) Restless legs syndrome (RLS) Nonintractable episodic headache, unspecified headache type SANTHOSH (obstructive sleep apnea) Obstructive sleep apnea (adult) (pediatric) Sciatica of right side Sciatica [facility] Diagnosis Dyspnea and respiratory abnormalities Other dyspnea and respiratory abnormality [facility] Diagnosis Acute left-sided low back pain with left-sided sciatica [facility] Diagnosis Lung nodules Other nonspecific abnormal finding of lung field [facility] Diagnosis Severe persistent asthma without complication [facility] Diagnosis Severe persistent asthma without complication [facility] Diagnosis Severe persistent asthma without complication- Primary Sjogren's syndrome, with unspecified organ involvement (HCC) Lung nodules Other nonspecific abnormal finding of lung field [facility] Diagnosis Neuropathy Mononeuritis of unspecified site RLS (restless legs syndrome) Restless legs syndrome (RLS) Nonintractable episodic headache, unspecified headache type documented in this encounter [facility]* Diagnosis Nonintractable episodic headache, unspecified headache type Neuropathy Mononeuritis of unspecified site RLS (restless legs syndrome) Restless legs syndrome (RLS) documented in this encounter [facility] note* Diagnosis Onset Date Resolution Status Acute kidney injury resolved Hypernatremia resolved Leukocytosis resolved Rhabdomyolysis resolved Tachycardia resolved Fracture, humerus, proximal acute [facility] Work Phone: Evaluation note* Diagnosis Severe persistent asthma without complication documented in this encounter [facility]* Diagnosis Nonintractable episodic headache, unspecified headache type Neuropathy Mononeuritis of unspecified site RLS (restless legs syndrome) Restless legs syndrome (RLS) SANTHOSH (obstructive sleep apnea) Obstructive sleep apnea (adult) (pediatric) Sciatica of right side Sciatica documented in this encounter [facility] note* Diagnosis Obstructive sleep apnea (adult) (pediatric)- Primary Encounter for long-term (current) use of medications Encounter for long-term (current) use of other medications Neuropathy Mononeuritis of unspecified site Restless legs syndrome Restless legs syndrome (RLS) Recurrent falls Personal history of fall Balance problems Other symptoms involving nervous and musculoskeletal systems Nonintractable episodic headache, unspecified headache type documented in this encounter [facility] note* Diagnosis Nonintractable episodic headache, unspecified headache type Neuropathy Mononeuritis of unspecified site RLS (restless legs syndrome) Restless legs syndrome (RLS) SANTHOSH (obstructive sleep apnea) Obstructive sleep apnea (adult) (pediatric) Sciatica of right side Sciatica documented in this encounter [facility] note* Diagnosis Neuropathy Mononeuritis of unspecified site Nonintractable episodic headache, unspecified headache type documented in this encounter [facility] note* Diagnosis Neuropathy Mononeuritis of unspecified site Nonintractable episodic headache, unspecified headache type documented in this encounter [facility]* Diagnosis Neuropathy Mononeuritis of unspecified site Nonintractable episodic headache, unspecified headache type documented in this encounter [facility]* Diagnosis Severe persistent asthma without complication (HCC)- Primary Lung nodules Other nonspecific abnormal finding of lung field COVID-19 long hauler Sjogren's syndrome, with unspecified organ involvement (HCC) Former smoker Personal history of tobacco use, presenting hazards to health [facility] Diagnosis Neuropathy Mononeuritis of unspecified site Nonintractable episodic headache, unspecified headache type [facility] Diagnosis Neuropathy- Primary Mononeuritis of unspecified site Nonintractable episodic headache, unspecified headache type RLS (restless legs syndrome) Restless legs syndrome (RLS) SANTHOSH (obstructive sleep apnea) Obstructive sleep apnea (adult) (pediatric) Recurrent falls Personal history of fall Restless legs syndrome Restless legs syndrome (RLS) Degeneration of intervertebral disc of lumbosacral region, unspecified whether pain present Left hand pain Pain in limb Carpal tunnel syndrome of left wrist Carpal tunnel syndrome [facility] Diagnosis Severe persistent asthma without complication (HCC) [facility] Outpatient Procedure (Routine) - Waiting for Response Specialty Diagnoses / Procedures Referred By Edy pinedo Referred To Contact [facility] Diagnoses SANTHOSH (obstructive sleep apnea) Dyspnea and respiratory abnormalities Procedures ECHO [facility] R-T 2D W/WOM-MODE COMPL SPEC&COLR D Analia Rivera PA-C [address] [employer] [address] [address] [facility] [address] [place] [address] Referral ID Status Reason Start Date Expiration Date Visits Requested Visits Authorized [id number] Waiting for Response Auto-Generate d Referral Financial Clearance Required - [employer] 04/22/2022 04/22/2023 1 1 * MRI/CT (Routine) - Authorized Specialty Diagnoses / Procedures Referred By Edy pinedo Referred To Contact [facility] Diagnoses Lung nodules Procedures CT CHEST WO IVCON DIAGNOSTIC COMPUTED TOMOGRAPHY THORAX W/O CNTRST Analia Rivera PA-C [address] [employer] [address] [address] [facility] [address] [place] [address] Referral ID Status Reason Start Date Expiration Date Visits Requested Visits Authorized [id number] Authorized Auto-Generate d Referral Financial Clearance Required - [employer] 2 08/21/2022 1 1 [facility] ([facility]ative)No reason for referral information availableWUniversity [facility] Work Phone: Summary Purpose Family History Relationship Condition Age at Onset Recorded Date/T neptali mother Diabetes mellitus Unknown Hypertension Unknown father Diabetes mellitus Unknown Relationship Condition Age at Onset Recorded Date/T neptali mother Diabetes mellitus Unknown Hypertension Unknown Cardiac disease Unknown father Diabetes mellitus Unknown Malignant neoplasm Unknown brother Cardiac disease Unknown Atrial fibrillation Unknown Obesity Unknown grandmother Abdominal aortic aneurysm (AAA) Unknown grandfather Cardiac disease Unknown grandmother Malignant neoplasm Unknown Advance Directives Advance Directive Response Recorded Date/ Time Advance Directives Yes April 15, 2015 2:09pm Living Will Yes April 06 1:55pm Power of Bulb Brander Yes April 06 017 1:55pm Advance Directive Response Recorded Date/ Time Advance Directives Yes April 15, 2015 1:09pm Living Will Yes April 06 12:55pm Power of Bulb Brander Yes April 06 017 12:55pm Advance Directive Response Recorded Date/ Time Advance Directives on File No January 26, 2023 7:11am Name of Medical Power of Bulb Brander terrance guo January 26, 2023 7:11am Advance Directives Yes January 26 7:11am Living Will Yes January 26, 2023 7 :11am Power of Bulb Brander Yes January 26, 2023 7:11am Advance Directive Response Recorded Date/ Time Advance Directives on File No January 26, 2023 7:11am Name of Medical Power of Bulb Brander terrance guo January 26, 2023 7:11am Advance Directives on File No February 11, 2023 8:19am Advance Directives Yes January 26 7:11am Living Will No February 11, 2023 8:19am Power of Bulb Brander No February 11 8:19am Advance Directive Response Recorded Date/ Time Advance Directives on File No January 26, 2023 7:11am Name of Medical Power of Bulb Brander terrance riosroberth January 26, 2023 7:11am Advance Directives on File No February 11, 2023 8:19am Advance Directives Yes January 26 7:11am Living Will No May 10, 2023 10:11am Power of Bulb Brander No April 10:11am Advance Directive Response Recorded Date/ Time Advance Directives on File No February 11, 2023 8:19am Advance Directives Yes January 26 7:11am Living Will No May 10, 2023 10:11am Power of Bulb Brander No April 10:11am Advance Directive Response Recorded Date/ Time Advance Directives Yes January 26 6:11am Living Will No May 10, 2023 9:11am Power of Bulb Brander No April 9:11am Advance Directive Response Recorded Date/ Time Advance Directives Yes January 26 6:11am Living Will Yes September 28 12:20pm Power of Bulb Brander Yes September 28, 2023 12:20pm Advance Directive Response Recorded Date/ Time Name of Medical Power of Bulb Brander JAGJIT (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) October 12, 2023 1:50pm Advance Directives Yes January 26 6:11am Living Will Yes October 12 024 1:50pm Power of Bulb Brander Yes October 12, 2023 1:50pm Advance Directive Response Recorded Date/ Time Name of Medical Power of Bulb Brander friend, Terrance bishop October 12, 2023 7:39pm Advance Directives Yes September 3:51pm Living Will Yes October 18 024 3:51pm Power of Bulb Brander Yes October 18, 2023 3:51pm Advance Directive Response Recorded Date/ Time Name of Medical Power of Bulb Brander friendTerrance October 12, 2023 8:39pm Advance Directives Yes January 26 7:11am Living Will Yes October 12 8:39pm Power of Bulb Brander Yes October 12, 2023 8:39pm Advance Directive Response Recorded Date/ Time Living Will No November 26, 2024 2:42pm Do you have a Healthcare Power of Bulb Brander? No November 26, 2024 2:42pm Advance Directives Yes September 4:51pm Chief Complaint and Reason for Visit Chief Complaint SCREEENING Chief Complaint SHOULDER AND ELBOW P AIN Chief Complaint SHOULDER AND ELBOW P AIN SINUSITIS ELBOW Chief Complaint SHOULDER AND ELBOW P AIN SINUSITIS ELBOW RIGHT SHOULDER PAIN Chief Complaint RIGHT SHOULDER PAIN Amb Documentation Chief Complaint Amb Documentation RT ELBOW CONTUSION Chief Complaint Amb Documentation RT ELBOW CONTUSION RE EST SCREENING/OSTEO Reason for Visit Preop cardiovascular exam Hypertension Chief Complaint RT ELBOW CONTUSION RE EST SCREENING/OSTEO CAD Coronary artery disease ABNORMAL STRESS TEST ABNORMAL STRESS TEST Reason for Visit Preop cardiovascular exam Hypertension Chief Complaint RT ELBOW CONTUSION RE EST SCREENING/OSTEO CAD Coronary artery disease ABNORMAL STRESS TEST ABNORMAL STRESS TEST PCI w/coronary stenting S/P [facility] PCI 01-26-23 Reason for Visit Preop cardiovascular exam Hypertension Hyperlipidemia Stented coronary artery Tachycardia Atherosclerotic heart disease of [place] coronary artery without angina pectoris Hypertension Chief Complaint SCREENING/OSTEO CAD Coronary artery disease ABNORMAL STRESS TEST ABNORMAL STRESS TEST PCI w/coronary stenting S/P [facility] PCI 01-26-23 Other chronic sinusitis Reason for Visit Hyperlipidemia Stented coronary artery Tachycardia Atherosclerotic heart disease of [place] coronary artery without angina pectoris Hypertension Chief Complaint ABNORMAL STRESS TEST ABNORMAL STRESS TEST PCI w/coronary stenting S/P [facility] PCI 01-26-23 Other chronic sinusitis 3 M FU LEFT PIRIFORMIS. HISTORY OF LUMBAR DDD. RX HERE Dizziness and giddiness DIZZINESS Reason for Visit Hyperlipidemia Stented coronary artery Tachycardia Atherosclerotic heart disease of [place] coronary artery without angina pectoris Hypertension Hyperlipidemia Lightheadedness Stented coronary artery Tachycardia Hypertension Chief Complaint ABNORMAL STRESS TEST PCI w/coronary stenting S/P [facility] PCI 01-26-23 Other chronic sinusitis 3 M FU LEFT PIRIFORMIS. HISTORY OF LUMBAR DDD. RX HERE Dizziness and giddiness DIZZINESS Amb Documentation Reason for Visit Hyperlipidemia Stented coronary artery Tachycardia Atherosclerotic heart disease of [place] coronary artery without angina pectoris Hypertension Hyperlipidemia Lightheadedness Stented coronary artery Tachycardia Hypertension Chief Complaint PCI w/coronary stent ing S/P [facility] PCI 01-26-23 Other chronic sinusitis 3 M FU LEFT PIRIFORMIS. HISTORY OF LUMBAR DDD. RX HERE Dizziness and giddiness DIZZINESS Amb Documentation RIGHT GREAT TOE Reason for Visit Hyperlipidemia Stented coronary artery Tachycardia Atherosclerotic heart disease of [place] coronary artery without angina pectoris Hypertension Hyperlipidemia Lightheadedness Stented coronary artery Tachycardia Hypertension Chief Complaint Other chronic sinusi tis 3 M FU LEFT PIRIFORMIS. HISTORY OF LUMBAR DDD. RX HERE Dizziness and giddiness DIZZINESS Amb Documentation RIGHT GREAT TOE 2 M FU Reason for Visit Hyperlipidemia Lightheadedness Stented coronary artery Tachycardia Hypertension Hyperlipidemia Stented coronary artery Tachycardia Hypertension Chief Complaint 2 M FU Reason for Visit Hyperlipidemia Stented coronary artery Tachycardia Hypertension Chief Complaint 2 M FU PROXIMAL HUMERUS FX,ACUTE KIDNEY INJURY Reason for Visit Hyperlipidemia Stented coronary artery Tachycardia Hypertension Acute kidney injury Fall Fracture of proximal end of right humerus Hypernatremia Leukocytosis Rhabdomyolysis Tachycardia Asthma Atherosclerotic heart disease of [place] coronary artery without angina pectoris Sleep apnea Chief Complaint 2 M FU PROXIMAL HUMERUS FX,ACUTE KIDNEY INJURY EKG PROXIMAL HUMERUS FX,ACUTE KIDNEY INJURY PROXIMAL HUMERUS FX,ACUTE KIDNEY INJURY PROXIMAL HUMERUS FX,ACUTE KIDNEY INJURY PROXIMAL HUMERUS FX,ACUTE KIDNEY INJURY PROXIMAL HUMERUS FX,ACUTE KIDNEY INJURY PROXIMAL HUMERUS FX,ACUTE KIDNEY INJURY Reason for Visit Hyperlipidemia Stented coronary artery Tachycardia Hypertension Acute kidney injury Fall Fracture of proximal end of right humerus Hypernatremia Leukocytosis Rhabdomyolysis Tachycardia Asthma Atherosclerotic heart disease of [place] coronary artery without angina pectoris Sleep apnea Chief Complaint PROXIMAL HUMERUS FX, ACUTE KIDNEY INJURY EKG PROXIMAL HUMERUS FX,ACUTE KIDNEY INJURY PROXIMAL HUMERUS FX,ACUTE KIDNEY INJURY PROXIMAL HUMERUS FX,ACUTE KIDNEY INJURY PROXIMAL HUMERUS FX,ACUTE KIDNEY INJURY PROXIMAL HUMERUS FX,ACUTE KIDNEY INJURY PROXIMAL HUMERUS FX,ACUTE KIDNEY INJURY 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 ADMISSION EXAM MD LAB WORK RIGHT SHOULDER Room 2 LAB WORK LABWORK LABWORK BLUEPRINT PROTOCOL Reason for Visit Acute kidney injury Hypernatremia Leukocytosis Rhabdomyolysis Tachycardia Fracture, humerus, proximal Chief Complaint Admit Date Needs EKG for PAT: Preop November 08 3:02pm RIGHT REVERSE TOTAL SHOULDER ARTHROPLAST Y, ERAS November 26, 2024 12:13pm RIGHT REVERSE TOTAL SHOULDER ARTHROPLAST Y, ERAS November 26, 2024 5:19pm RIGHT REVERSE TOTAL SHOULDER ARTHROPLAST Y, ERAS November 27, 2024 3:34pm Reason for Visit Admit Date Hyperlipidemia November 08, 2024 3:0 2pm Stented coronary artery November 08, 2024 3:02pm Hypertension November 08, 2024 3:0 2pm 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 November 26, 2024 12:13pm Chief Complaint Admit Date RIGHT REVERSE TOTAL SHOULDER ARTHROPLAST Y, ERAS November 26, 2024 12:13pm RIGHT REVERSE TOTAL SHOULDER ARTHROPLAST Y, ERAS November 26, 2024 5:19pm RIGHT REVERSE TOTAL SHOULDER ARTHROPLAST Y, ERAS November 27, 2024 3:34pm CONCERN FOR UTI March 25, 2025 3:5 5pm Reason for Visit Admit Date 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 November 26, 2024 12:13pm Reason for Referral Specialty Diagnoses / Procedures Referred By Shankarac t Referred To Contact CT IMAGING Diagnoses Lung nodules Procedures CT CHEST WO IVCON DIAGNOSTIC COMPUTED TOMOGRAPHY THORAX W/O CNTRST Rodrigo Lamb MD [address] [place] [address] Ct Imaging Referral ID Status Reason Start Date Expiration Date Visits Requested Visits Authorized [id number] Pending Review Auto-Generat ed Referral 02/25/2022 01/29/2023 1 1 Specialty Diagnoses / Procedures Referred By Shankarac t Referred To Contact [facility] Diagnoses Severe persistent asthma without complication Procedures SPIROMETRY BASELINE ONLY SPMTRY W/VC EXPIRATORY HIPOLITO W/WO MXML VOL VNTJ Rodrigo Lamb MD [address] [place] [address] [facility] [place] [address] [place] [address] Referral ID Status Reason Start Date Expiration Date Visits Requested Visits Authorized [id number] Pending Review Auto-Generat ed Referral 02/25/2022 01/29/2023 1 1 Specialty Diagnoses / Procedures Referred By Shankarac t Referred To Contact MR IMAGING Diagnoses Transient cerebral ischemia, unspecified type Aphasia Balance problems Procedures MRI BRAIN WO IVCON MRI BRAIN BRAIN STEM W/O CONTRAST MATERIAL Kandice Jung, RAEGAN.[employer] [address] [place] [address] Mr Imaging Referral ID Status Reason Start Date Expiration Date Visits Requested Visits Authorized [id number] Authorized Auto-Generat ed Referral 01/07/2022 02/06/2023 1 1 Referral ID Status Reason Start Date Expiration Date V isits Requested Visits Authorized [id number] Closed Auto-Generate d Referral 01/07/2022 02/06/2023 1 1 Referral ID Status Reason Start Date Expiration Date V isits Requested Visits Authorized [id number] Closed Auto-Generate d Referral 02/25/2022 01/29/2023 1 1 Specialty Diagnoses / Procedures Referred By Contac t Referred To Contact Diagnoses Tinnitus, left ear Procedures HEARING TEST/AUDIOGRAM COMPRE AUDIOMETRY THRESHOLD MERYAL Donnell Concepcion MD [address] [address] [facility] [address] [place] [address] Referral ID Status Reason Start Date Expiration Date Visits Requested Visits Authorized [id number] Pending Review Auto-Generat ed Referral 11/15/2022 02/13/2023 1 1 Specialty Diagnoses / Procedures Referred By Contac t Referred To Contact Diagnoses Neuropathy RLS (restless legs syndrome) Nonintractable episodic headache, unspecified headache type SANTHOSH (obstructive sleep apnea) Sciatica of right side Kandice Jung, SUPERVIS[employer] [address] [place] [address] Referral ID Status Reason Start Date Expiration Date V isits Requested Visits Authorized [id number] Pending Review 1 1 Specialty Diagnoses / Procedures Referred By Contac t Referred To Contact MR IMAGING Diagnoses Acute left-sided low back pain with left-sided sciatica Procedures MRI LUMBAR SPINE WO IVCON MRI SPINAL CANAL LUMBAR W/O CONTRAST MATERIAL Darien Gudino Jr., MD [address] [place] [address] [place] [address] Referral ID Status Reason Start Date Expiration Date V isits Requested Visits Authorized [id number] Closed Auto-Generate d Referral 04/29/2023 05/28/2024 1 1 Additional Source Comments INFORMATION SOURCE (unrecogn ized section and content) DATE CREATED AUTHOR 02/08/2018 [facility] ([place]) DATE CREATED AUTHOR AUTHOR'S ORGANIZ ATION 02/14/2018 [facility] DATE CREATED AUTHOR AUTHOR'S ORGANIZ ATION 08/13/2020 [facility] DATE CREATED AUTHOR AUTHOR'S ORGANIZ ATION 05/08/2021 [facility] DATE CREATED AUTHOR AUTHOR'S ORGANIZ ATION 03/09/2025 [facility] DATE CREATED AUTHOR AUTHOR'S ORGANIZ ATION 03/27/2025 [facility] Source Comments (unrecognize d section and content) In the event this informatio n is protected by the Federal Confidentiality of Alcohol and Drug Abuse Patient Records regulations: The Federal rules restrict any use of the information to criminally investigate or prosecute any alcohol or drug abuse patient.[facility] the event this information is protected by the Federal Confidentiality of Alcohol and Drug Abuse Patient Records regulations: The Federal rules restrict any use of the information to criminally investigate or prosecute any alcohol or drug abuse patient.[facility] the event this information is protected by the Federal Confidentiality of Alcohol and Drug Abuse Patient Records regulations: The Federal rules restrict any use of the information to criminally investigate or prosecute any alcohol or drug abuse patient.[facility] the event this information is protected by the Federal Confidentiality of Alcohol and Drug Abuse Patient Records regulations: The Federal rules restrict any use of the information to criminally investigate or prosecute any alcohol or drug abuse patient.[facility] HospitalIn the event this information is protected by the Federal Confidentiality of Alcohol and Drug Abuse Patient Records regulations: The Federal rules restrict any use of the information to criminally investigate or prosecute any alcohol or drug abuse patient.[facility] HospitalIn the event this information is protected by the Federal Confidentiality of Alcohol and Drug Abuse Patient Records regulations: The Federal rules restrict any use of the information to criminally investigate or prosecute any alcohol or drug abuse patient.[facility] HospitalIn the event this information is protected by the Federal Confidentiality of Alcohol and Drug Abuse Patient Records regulations: The Federal rules restrict any use of the information to criminally investigate or prosecute any alcohol or drug abuse patient.[facility] HospitalIn the event this information is protected by the Federal Confidentiality of Alcohol and Drug Abuse Patient Records regulations: The Federal rules restrict any use of the information to criminally investigate or prosecute any alcohol or drug abuse patient.[facility] HospitalIn the event this information is protected by the Federal Confidentiality of Alcohol and Drug Abuse Patient Records regulations: The Federal rules restrict any use of the information to criminally investigate or prosecute any alcohol or drug abuse patient.[facility] HospitalIn the event this information is protected by the Federal Confidentiality of Alcohol and Drug Abuse Patient Records regulations: The Federal rules restrict any use of the information to criminally investigate or prosecute any alcohol or drug abuse patient.[facility] HospitalIn the event this information is protected by the Federal Confidentiality of Alcohol and Drug Abuse Patient Records regulations: The Federal rules restrict any use of the information to criminally investigate or prosecute any alcohol or drug abuse patient.[facility] HospitalIn the event this information is protected by the Federal Confidentiality of Alcohol and Drug Abuse Patient Records regulations: The Federal rules restrict any use of the information to criminally investigate or prosecute any alcohol or drug abuse patient.[facility] HospitalIn the event this information is protected by the Federal Confidentiality of Alcohol and Drug Abuse Patient Records regulations: The Federal rules restrict any use of the information to criminally investigate or prosecute any alcohol or drug abuse patient.[facility] HospitalIn the event this information is protected by the Federal Confidentiality of Alcohol and Drug Abuse Patient Records regulations: The Federal rules restrict any use of the information to criminally investigate or prosecute any alcohol or drug abuse patient.[facility] HospitalIn the event this information is protected by the Federal Confidentiality of Alcohol and Drug Abuse Patient Records regulations: The Federal rules restrict any use of the information to criminally investigate or prosecute any alcohol or drug abuse patient.[facility] HospitalIn the event this information is protected by the Federal Confidentiality of Alcohol and Drug Abuse Patient Records regulations: The Federal rules restrict any use of the information to criminally investigate or prosecute any alcohol or drug abuse patient.[facility] HospitalIn the event this information is protected by the Federal Confidentiality of Alcohol and Drug Abuse Patient Records regulations: The Federal rules restrict any use of the information to criminally investigate or prosecute any alcohol or drug abuse patient.[facility] HospitalIn the event this information is protected by the Federal Confidentiality of Alcohol and Drug Abuse Patient Records regulations: The Federal rules restrict any use of the information to criminally investigate or prosecute any alcohol or drug abuse patient.[facility] HospitalIn the event this information is protected by the Federal Confidentiality of Alcohol and Drug Abuse Patient Records regulations: The Federal rules restrict any use of the information to criminally investigate or prosecute any alcohol or drug abuse patient.[facility] HospitalIn the event this information is protected by the Federal Confidentiality of Alcohol and Drug Abuse Patient Records regulations: The Federal rules restrict any use of the information to criminally investigate or prosecute any alcohol or drug abuse patient.[facility] HospitalIn the event this information is protected by the Federal Confidentiality of Alcohol and Drug Abuse Patient Records regulations: The Federal rules restrict any use of the information to criminally investigate or prosecute any alcohol or drug abuse patient.[facility] HospitalIn the event this information is protected by the Federal Confidentiality of Alcohol and Drug Abuse Patient Records regulations: The Federal rules restrict any use of the information to criminally investigate or prosecute any alcohol or drug abuse patient.[facility] HospitalIn the event this information is protected by the Federal Confidentiality of Alcohol and Drug Abuse Patient Records regulations: The Federal rules restrict any use of the information to criminally investigate or prosecute any alcohol or drug abuse patient.[facility] HospitalIn the event this information is protected by the Federal Confidentiality of Alcohol and Drug Abuse Patient Records regulations: The Federal rules restrict any use of the information to criminally investigate or prosecute any alcohol or drug abuse patient.[facility] HospitalIn the event this information is protected by the Federal Confidentiality of Alcohol and Drug Abuse Patient Records regulations: The Federal rules restrict any use of the information to criminally investigate or prosecute any alcohol or drug abuse patient.[facility] HospitalIn the event this information is protected by the Federal Confidentiality of Alcohol and Drug Abuse Patient Records regulations: The Federal rules restrict any use of the information to criminally investigate or prosecute any alcohol or drug abuse patient.[facility] HospitalIn the event this information is protected by the Federal Confidentiality of Alcohol and Drug Abuse Patient Records regulations: The Federal rules restrict any use of the information to criminally investigate or prosecute any alcohol or drug abuse patient.[facility] HospitalIn the event this information is protected by the Federal Confidentiality of Alcohol and Drug Abuse Patient Records regulations: The Federal rules restrict any use of the information to criminally investigate or prosecute any alcohol or drug abuse patient.[facility] HospitalIn the event this information is protected by the Federal Confidentiality of Alcohol and Drug Abuse Patient Records regulations: The Federal rules restrict any use of the information to criminally investigate or prosecute any alcohol or drug abuse patient.[facility] HospitalIn the event this information is protected by the Federal Confidentiality of Alcohol and Drug Abuse Patient Records regulations: The Federal rules restrict any use of the information to criminally investigate or prosecute any alcohol or drug abuse patient.[facility] HospitalIn the event this information is protected by the Federal Confidentiality of Alcohol and Drug Abuse Patient Records regulations: The Federal rules restrict any use of the information to criminally investigate or prosecute any alcohol or drug abuse patient.[facility] HospitalIn the event this information is protected by the Federal Confidentiality of Alcohol and Drug Abuse Patient Records regulations: The Federal rules restrict any use of the information to criminally investigate or prosecute any alcohol or drug abuse patient.[facility] HospitalIn the event this information is protected by the Federal Confidentiality of Alcohol and Drug Abuse Patient Records regulations: The Federal rules restrict any use of the information to criminally investigate or prosecute any alcohol or drug abuse patient.[facility] HospitalIn the event this information is protected by the Federal Confidentiality of Alcohol and Drug Abuse Patient Records regulations: The Federal rules restrict any use of the information to criminally investigate or prosecute any alcohol or drug abuse patient.[facility] HospitalIn the event this information is protected by the Federal Confidentiality of Alcohol and Drug Abuse Patient Records regulations: The Federal rules restrict any use of the information to criminally investigate or prosecute any alcohol or drug abuse patient.[facility] HospitalIn the event this information is protected by the Federal Confidentiality of Alcohol and Drug Abuse Patient Records regulations: The Federal rules restrict any use of the information to criminally investigate or prosecute any alcohol or drug abuse patient.[facility] HospitalIn the event this information is protected by the Federal Confidentiality of Alcohol and Drug Abuse Patient Records regulations: The Federal rules restrict any use of the information to criminally investigate or prosecute any alcohol or drug abuse patient.[facility] HospitalIn the event this information is protected by the Federal Confidentiality of Alcohol and Drug Abuse Patient Records regulations: The Federal rules restrict any use of the information to criminally investigate or prosecute any alcohol or drug abuse patient.[facility] HospitalIn the event this information is protected by the Federal Confidentiality of Alcohol and Drug Abuse Patient Records regulations: The Federal rules restrict any use of the information to criminally investigate or prosecute any alcohol or drug abuse patient.[facility] the event this information is protected by the Federal Confidentiality of Alcohol and Drug Abuse Patient Records regulations: The Federal rules restrict any use of the information to criminally investigate or prosecute any alcohol or drug abuse patient.[facility] HospitalIn the event this information is protected by the Federal Confidentiality of Alcohol and Drug Abuse Patient Records regulations: The Federal rules restrict any use of the information to criminally investigate or prosecute any alcohol or drug abuse patient.[facility] HospitalIn the event this information is [...] or prosecute any alcohol or drug abuse patient.[facility] HospitalIn the event this information is protected by the Federal Confidentiality of Alcohol and Drug Abuse Patient Records regulations: The Federal rules restrict any use of the information to criminally investigate or prosecute any alcohol or drug abuse patient.[facility] HospitalIn the event this information is protected by the Federal Confidentiality of Alcohol and Drug Abuse Patient Records regulations: The Federal rules restrict any use of the information to criminally investigate or prosecute any alcohol or drug abuse patient.[facility] HospitalIn the event this information is protected by the Federal Confidentiality of Alcohol and Drug Abuse Patient Records regulations: The Federal rules restrict any use of the information to criminally investigate or prosecute any alcohol or drug abuse patient.[facility] HospitalIn the event this information is protected by the Federal Confidentiality of Alcohol and Drug Abuse Patient Records regulations: The Federal rules restrict any use of the information to criminally investigate or prosecute any alcohol or drug abuse patient.[facility] HospitalIn the event this information is protected by the Federal Confidentiality of Alcohol and Drug Abuse Patient Records regulations: The Federal rules restrict any use of the information to criminally investigate or prosecute any alcohol or drug abuse patient.[facility] HospitalIn the event this information is protected by the Federal Confidentiality of Alcohol and Drug Abuse Patient Records regulations: The Federal rules restrict any use of the information to criminally investigate or prosecute any alcohol or drug abuse patient.[facility] HospitalIn the event this information is protected by the Federal Confidentiality of Alcohol and Drug Abuse Patient Records regulations: The Federal rules restrict any use of the information to criminally investigate or prosecute any alcohol or drug abuse patient.[facility] HospitalIn the event this information is protected by the Federal Confidentiality of Alcohol and Drug Abuse Patient Records regulations: The Federal rules restrict any use of the information to criminally investigate or prosecute any alcohol or drug abuse patient.[facility] HospitalIn the event this information is protected by the Federal Confidentiality of Alcohol and Drug Abuse Patient Records regulations: The Federal rules restrict any use of the information to criminally investigate or prosecute any alcohol or drug abuse patient.[facility] HospitalIn the event this information is protected by the Federal Confidentiality of Alcohol and Drug Abuse Patient Records regulations: The Federal rules restrict any use of the information to criminally investigate or prosecute any alcohol or drug abuse patient.[facility] HospitalIn the event this information is protected by the Federal Confidentiality of Alcohol and Drug Abuse Patient Records regulations: The Federal rules restrict any use of the information to criminally investigate or prosecute any alcohol or drug abuse patient.[facility] HospitalIn the event this information is protected by the Federal Confidentiality of Alcohol and Drug Abuse Patient Records regulations: The Federal rules restrict any use of the information to criminally investigate or prosecute any alcohol or drug abuse patient.[facility] HospitalIn the event this information is protected by the Federal Confidentiality of Alcohol and Drug Abuse Patient Records regulations: The Federal rules restrict any use of the information to criminally investigate or prosecute any alcohol or drug abuse patient.[facility] Reason for Visit (unrecogniz ed section and content) Reason Comments Spirometry Specialty Diagnoses / Procedures Referred By Contac t Referred To Contact [facility] Diagnoses Severe persistent asthma without complication Procedures LUNG DIFFUSION CAPACITY (DLCO) DIFFUSING CAPACITY Analia Rivera PA-C [address] [place] [address] Res[facility] [place] [address] [place] [address] Referral ID Status Reason Start Date Expiration Date V isits Requested Visits Authorized [id number] Closed Auto-Generate d Referral 01/12/2023 02/11/2024 1 1 Reason Comments Established NI Patient Follow up Reason Comments Appointment Reason Comments 2 month F/U Specialty Diagnoses / Procedures Referred By Contac t Referred To Contact MR IMAGING Diagnoses Transient cerebral ischemia, unspecified type Aphasia Balance problems Procedures MRI BRAIN WO IVCON MRI BRAIN BRAIN STEM W/O CONTRAST MATERIAL Kandice Jung, SUPERVISOR [employer] [address] [place] [address] Mr Imaging Referral ID Status Reason Start Date Expiration Date V isits Requested Visits Authorized [id number] Closed Auto-Generate d Referral 01/07/2022 02/06/2023 [address] Specialty Diagnoses / Procedures Referred By Contac t Referred To Contact CT IMAGING Diagnoses Lung nodules Procedures CT CHEST WO IVCON DIAGNOSTIC COMPUTED TOMOGRAPHY THORAX W/O CNTRST Rodrigo Lamb MD [address] [place] [address] Ct Imaging Referral ID Status Reason Start Date Expiration Date V isits Requested Visits Authorized [id number] Closed Auto-Generate d Referral 02/25/2022 01/29/2023 1 1 Reason Comments Patient Update Reason Comments Results Chest CT Reason Comments Refill Request Specialty Diagnoses / Procedures Referred By Contac t Referred To Contact PULMONARY MEDICINE Diagnoses Severe persistent asthma without complication Procedures SPIROMETRY BASELINE ONLY SPMTRY W/VC EXPIRATORY HIPOLITO W/WO MXML VOL VNTJ Analia Rivera PA-C [address] [place] [address] Pulm [facility] [address] [place] [address] Referral ID Status Reason Start Date Expiration Date V isits Requested Visits Authorized [id number] Closed Auto-Generated Referral Financial Clearance Required - [employer] 04/22/2022 08/21/2022 1 1 Reason Comments Established Patient yearly follow up Specialty Diagnoses / Procedures Referred By Contac t Referred To Contact Pulmonary and Critical Care Medicine / PULMONARY MEDICINE Diagnoses 1 YR F/U ASTHMA Procedures RI EST ASTHMA Rodrigo Lamb MD [address] [place] [address] Analia Rivera PA-C [address] [address] Referral ID Status Reason Start Date Expiration Date Visits Re quested Visits Authorized [id number] Closed 04/22/2022 08/21/2022 1 1 Reason Onset Date Comments Refill Request 04/29/2022 Reason Comments Patient Update Medication Question Patient called janine wiley Neuronadrien. Reason Comments Established Patient Asthma Specialty Diagnoses / Procedures Referred By Contac t Referred To Contact Pulmonary and Critical Care Medicine / PULMONARY MEDICINE Diagnoses follow up after ct Procedures RI EST ASTHMA Analia Rivera PARoxy [address] [place] [address] Hailey Eden MD [address] [place] [address] Referral ID Status Reason Start Date Expiration Date Visits Re quested Visits Authorized [id number] Closed 05/31/2022 08/21/2022 1 1 Reason Comments Orders Reason Comments Sinus Problem Left side of head ge ts headaches and ear aches. Chronic sinus infections. Had 3 weeks of vertigo, just finished. Sx of last infection started 3 weeks ago. Can have colored nasal drainage. CT about 1 year ago. 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 Reason Comments Established Patient Asthma/Cough [...] MRI SPINAL CANAL LUMBAR W/O CONTRAST MATERIAL Darien Gudino Jr., MD [address] [facility] [address] [place] [address] [place] [address] Referral ID Status Reason Start Date Expiration Date V isits Requested Visits Authorized [id number] Closed Auto-Generate d Referral 04/29/2023 05/28/2024 [address] Specialty Diagnoses / Procedures Referred By Contac t Referred To Contact CT IMAGING Diagnoses Lung nodules Procedures CT CHEST WO IVCON DIAGNOSTIC COMPUTED TOMOGRAPHY THORAX W/O CNTRST Analia Rivera PA-C [address] [place] [address] [place] [address] Referral ID Status Reason Start Date Expiration Date V isits Requested Visits Authorized [id number] Closed Auto-Generate d Referral 05/22/2023 02/11/2024 1 1 Specialty Diagnoses / Procedures Referred By Contac t Referred To Contact [facility] [place] Diagnoses Severe persistent asthma without complication Procedures SPIROMETRY BASELINE ONLY SPMTRY W/VC EXPIRATORY HIPOLITO W/WO MXML VOL VNTJ Analia Rivera, PARajinderC [address] [place] [address] Respiratory [place] [id number] [place] [id number] Referral ID Status Reason Start Date Expiration Date V isits Requested Visits Authorized [id number] Closed Auto-Generate d Referral 01/12/2023 02/11/2024 1 1 Specialty Diagnoses / Procedures Referred By Contac t Referred To [facility] [place] Diagnoses Severe persistent asthma without complication Procedures LUNG VOLUMES Analia Rivera, PARajinderC [address] [place] [address] Respiratory [place] [id number] [place] [address] Referral ID Status Reason Start Date Expiration Date V isits Requested Visits Authorized [id number] Closed Auto-Generate d Referral 01/12/2023 02/11/2024 1 1 Reason Comments Asthma Follow Up Reason Onset Date Comments Refill Request 07/21/2023 Reason Comments Results Reason Comments Opened In Error Reason Onset Date Comments Refill Request 04/24/2024 Reason Comments Follow Up Pt was found at home by police on bathroom floor unconscious, was thought to have been down for 3-4 days and had a seizure and septic UTI, spent several months in a nursing facility, two weeks ago fell in the shower and was evaluated in the [facility] ED, sent home Reason Comments Patient Question Reason Onset Date Comments Refill Request 09/06/2024 Reason Onset Date Comments Refill Request 12/20/2024 Reason Comments Established Patient 6 month follow up Specialty Diagnoses / Procedures Referred By Contac t Referred To Contact PULMONARY MEDICINE Diagnoses Asthma (HCC) 6 month follow up asthma Procedures OFFICE/OUTPATIENT ESTABLISHED MOD MDM 30 MIN RI EST ASTHMA Theron Eden MD [address] [place] [id number] Phone: tel: fax: Pulmonary Medicine [address] [place] [address] Phone: tel: Referral ID Status Reason Start Date Expiration Date V isits Requested Visits Authorized [id number] Closed Financial Clearance Required - [employer] 01/23/2025 08/21/2025 1 1 Specialty Diagnoses / Procedures Referred By Contac t Referred To Contact CT IMAGING Diagnoses Lung nodules Procedures CT CHEST WO IVCON DIAGNOSTIC COMPUTED TOMOGRAPHY THORAX W/O CNTRST Analia Rivera, EFRAIN [address] [facility] [place] [address] Phone: tel: fax: [id number] Referral ID Status Reason Start Date Expiration Date V isits Requested Visits Authorized [id number] Closed Auto-Generate d Referral 01/23/2025 02/22/2026 1 1 Reason Comments Results Labs Reason Onset Date Comments Refill Request 02/15/2025 Reason Comments Follow Up Med refills. Other p [facility] Care Teams (unrecognized sec tion and content) Clinical Laboratory Technician Relationship Specialty Start Date End Date Davion Peoples MD [address] [place], [place] [id number] PCP - General Family Practice 05/09/12 Davion Peoples MD [address] [place] [address] Family Practice 05/09/12 Clinical Laboratory Technician Relationship Specialty Start Date End Date Davion Peoples MD [address] [facility] [place] [id number] PCP - General Family Practice 05/09/12 Davion Peoples MD [address] [place] [address] Family Practice 05/09/12 Clinical Laboratory Technician Relationship Specialty Start Date End Date Davion Peoples MD [address] [place] [address] PCP - General Family Practice 05/09/12 Davion Peoples MD [address] [place] [address] Family Practice 05/09/12 Clinical Laboratory Technician Relationship Specialty Start Date End Date Davion Peoples MD [address] [place] [address] PCP - General Family Practice 05/09/12 Davion Peoples MD [address] [place] [address] Family Practice 05/09/12 Clinical Laboratory Technician Relationship Specialty Start Date End Date Davion Peoples MD [address] [place] [address] PCP - General Family Practice 05/09/12 Davion Peoples MD [address] [place] [address] Family Practice 05/09/12 Clinical Laboratory Technician Relationship Specialty Start Date End Date Davion Peoples MD [address] [place] [address] PCP - General Family Practice 05/09/12 Davion Peoples MD [address] [place] [address] Family Practice 05/09/12 Clinical Laboratory Technician Relationship Specialty Start Date End Date Davion Peoples MD [address] [place] [address] PCP - General Family Practice 05/09/12 Davion Peoples MD [address] [place] [address] Family Practice 05/09/12 Clinical Laboratory Technician Relationship Specialty Start Date End Date Davion Peoples MD [address] [place] [address] PCP - General Family Practice 05/09/12 Davion Peoples MD [address] [place] [address] Family Practice 05/09/12 Clinical Laboratory Technician Relationship Specialty Start Date End Date Davion Peoples MD [address] [place] [address] PCP - General Family Practice 05/09/12 Davion Peoples MD [address] [place] [address] Family Practice 05/09/12 Clinical Laboratory Technician Relationship Specialty Start Date End Date Davion Peoples MD [address] [place] [address] PCP - General Family Practice 05/09/12 Davion Peoples MD [address] [place] [address] Family Practice 05/09/12 Clinical Laboratory Technician Relationship Specialty Start Date End Date Davion Peoples MD [address] [place] [address] PCP - General Family Practice 05/09/12 Davion Peoples MD [address] [place] [address] Family Practice 05/09/12 Clinical Laboratory Technician Relationship Specialty Start Date End Date Davion Peoples MD [address] [place] [address] PCP - General Family Medicine 05/09/12 Davion Peoples MD [address] [place] [address] Family Medicine 05/09/12 Clinical Laboratory Technician Relationship Specialty Start Date End Date Davion Peoples MD [address] [place] [address] PCP - General Family Medicine 05/09/12 Davion Peoples MD [address] [place] [address] Family Medicine 05/09/12 Clinical Laboratory Technician Relationship Specialty Start Date End Date Davion Peoples MD [address] [place] [address] PCP - General Family Medicine 05/09/12 Davion Peoples MD [address] [place] [address] Family Medicine 05/09/12 Clinical Laboratory Technician Relationship Specialty Start Date End Date Davion Peoples MD [address] [place] [address] PCP - General Family Medicine 05/09/12 Davion Peoples MD [address] [place] [address] Family Medicine 05/09/12 Team Status: Active Member Role Status Dates Dr. Ruel Peoples MD Family Provider Active Dr. Ruel Peoples MD Primary Care Provider Activ e Team Status: Active Member Role Status Dates Dr. Ruel Peoples MD Primary Care Provider Activ amy Oliver Attending Provider Active Team Status: Inactive Member Role Status Dates Dr. Ruel Peoples MD Primary Care Provider, Attending Provider, Referring Provider Active Team Status: Inactive Member Role Status Dates Dr. Ruel Peoples MD Primary Care Provider, Atte nding Provider Active Team Status: Active Member Role Status Dates Dr. Ruel Peoples MD Primary Care Provider, Attending Provider, Referring Provider Active Clinical Laboratory Technician Relationship Specialty Start Date End Date Davion Peoples MD [address] [place] [address] PCP - General Family Medicine 05/09/12 Davion Peoples MD [address] [place] [address] Family Medicine 05/09/12 Team Status: Inactive Member Role Status Dates Dr. Ruel Peoples MD Primary Care Provider Activ e Dr. Subha Baker MD Attending Provider, Referring P nirmala Active Clinical Laboratory Technician Relationship Specialty Start Date End Date Davion Peoples MD [address] [place] [address] PCP - General Family Medicine 05/09/12 Davion Peoples MD [address] [place] [address] Family Medicine 05/09/12 Clinical Laboratory Technician Relationship Specialty Start Date End Date Davion Peoples MD [address] [place] [address] PCP - General Family Medicine 05/09/12 Davion Peoples MD [address] [place] [address] Family Medicine 05/09/12 Team Status: Inactive Member Role Status Dates Dr. Ruel Peoples MD Primary Care Provider, Refe rring Provider Active Dr. Gus Blue MD Attending Provider Active Clinical Laboratory Technician Relationship Specialty Start Date End Date Davion Peoples MD [address] [place] [address] PCP - General Family Medicine 05/09/12 Davion Peoples MD [address] [facility] [place], [place] [id number] Family Medicine 05/09/12 Team Status: Active Member Role Status Dates Dr. Ruel Peoples MD Primary Care Provider Activ e Dr. Gus Blue MD Attending Provider, Referring Provider, Other Provider Active Team Status: Active Member Role Status Dates Dr. Ruel Peoples MD Primary Care Provider Activ e Dr. Gus Blue MD Other Provider Active Barbara Beth BARREL LEVELER, BARREL LEVELER-C Attending Provider Active Team Status: Inactive Member Role Status Dates Dr. Ruel Peoples MD Primary Care Provider Activ e Dr. Gus Blue MD Attending Provider, Referring Pro vider Active Team Status: Active Member Role Status Dates Dr. Ruel Peoples MD Primary Care Provider, Attending Provider, Referring Provider Active Dr. Gus Blue MD Other Provider Active Team Status: Inactive Member Role Status Dates Dr. Ruel Peoples MD Primary Care Provider, Refe rring Provider Active Kacey Sandoval PA, PA Attending Provider Active Team Status: Active Member Role Status Dates Dr. Ruel Peoples MD Primary Care Provider Activ e Dr. Gus Blue MD Attending Provider Active Team Status: Inactive Member Role Status Dates Dr. Ruel Peoples MD Primary Care Provider, Attending Provider, Referring Provider Active Dr. Gus Blue MD Other Provider Active Clinical Laboratory Technician Relationship Specialty Start Date End Date Davion Peoples MD [address] [place], [place] [id number] PCP - General Family Medicine 05/09/12 Davion Peoples MD [address] [place], [place] [id number] Family Medicine 05/09/12 Clinical Laboratory Technician Relationship Specialty Start Date End Date Davion Peoples MD [address] [place] [address] PCP - General Family Medicine 05/09/12 Davion Peoples MD [address] [place] [address] Family Medicine 05/09/12 Clinical Laboratory Technician Relationship Specialty Start Date End Date Davion Peoples MD [address] [place] [address] PCP - General Family Medicine 05/09/12 Davion Peoples MD [address] [place] [address] Family Medicine 05/09/12 Team Status: Inactive Member Role Status Dates Dr. Ruel Peoples MD Primary Care Provider Activ e Dr. Davion Randhawa MD Attending Provider, Refe ing Provider Active Clinical Laboratory Technician Relationship Specialty Start Date End Date Davion Peoples MD [address] [place] [address] PCP - General Family Medicine 05/09/12 Davion Peoples MD [address] [place] [address] Family Medicine 05/09/12 Clinical Laboratory Technician Relationship Specialty Start Date End Date Davion Peoples MD [address] [place] [address] PCP - General Family Medicine 05/09/12 Davion Peoples MD [address] [place] [address] Family Medicine 05/09/12 Team Status: Inactive Member Role Status Dates Dr. Ruel Peoples MD Primary Care Provider, Refe rring Provider Active Kacey Sandoval PA, PA Active Barbara Beth BARREL LEVELER, BARREL LEVELER-C Attending Provider Active Team Status: Active Member Role Status Dates Dr. Ruel Peoples MD Primary Care Provider Activ e Dr. Cesar Desouaz MD Attending Provider Active Team Status: Active Member Role Status Dates Dr. Ruel Peoples MD Primary Care Provider Activ e Barbara Beth BARREL LEVELER, BARREL LEVELER-C Attending Provider, Referring P rovider Active Team Status: Inactive Member Role Status Dates Dr. Ruel Peoples MD Primary Care Provider Activ e Dr. Floyd Bill DO Emergency Provider Active Team Status: Active Member Role Status Dates Dr. Ruel Peoples MD Primary Care Provider Activ e Barbara Beth BARREL LEVELER, BARREL LEVELER-C Attending Provider Active Team Status: Inactive Member Role Status Dates Dr. Ruel Peoples MD Primary Care Provider Activ e Barbara Beth BARREL LEVELER, BARREL LEVELER-C Attending Provider, Referring P rovider Active Team Status: Active Member Role Status Dates Dr. Ruel Peoples MD Primary Care Provider Activ e Dr. Cesar Desouza MD Attending Provider Active Barbara Beth BARREL LEVELER, BARREL LEVELER-C Referring Provider Active Team Status: Inactive Member Role Status Dates Dr. Ruel Peoples MD Primary Care Provider Activ e Barbara Beth BARREL LEVELER, BARREL LEVELER-C Attending Provider Active Team Status: Inactive Member Role Status Dates Dr. Ruel Peoples MD Primary Care Provider Activ e Dr. Floyd Bill DO Attending Provider, Emergency P rovider Active Clinical Laboratory Technician Relationship Specialty Start Date End Date Davion Peoples MD [address] [place], [place] [address] PCP - General Family Medicine 05/09/12 Davion Peoples MD [address] [place], [place] [address] Family Medicine 05/09/12 Clinical Laboratory Technician Relationship Specialty Start Date End Date Davion Peoples MD [address] [place], [place] [address] PCP - General Family Medicine 05/09/12 Davion Peoples MD [address] [place] [address] Family Medicine 05/09/12 Team Status: Inactive Member Role Status Dates Dr. Ruel Peoples MD Primary Care Provider, [facility] Provider Active Barbara Beth BARREL LEVELER, BARREL LEVELER-C Attending Provider Active Clinical Laboratory Technician Relationship Specialty Start Date End Date Davion Peoples MD [address] [place] [address] PCP - General Family Medicine 05/09/12 Davion Peoples MD [address] [place] [address] Family Medicine 05/09/12 Clinical Laboratory Technician Relationship Specialty Start Date End Date Davion Peoples MD [address] [place] [address] PCP - General Family Medicine 05/09/12 Davion Peoples MD [address] [place] [address] Family Medicine 05/09/12 Clinical Laboratory Technician Relationship Specialty Start Date End Date Davion Peoples MD [address] [place] [address] PCP - General Family Medicine 05/09/12 Davion Peoples MD [address] [place] [address] Family Medicine 05/09/12 Clinical Laboratory Technician Relationship Specialty Start Date End Date Davion Peoples MD [address] [facility] [place] [address] PCP - General Family Medicine 05/09/12 Davion Peoples MD [address] [place] [address] Family Medicine 05/09/12 Team Status: Active Member Role Status Dates Dr. Ruel Peoples MD Primary Care Provider Activ e Dr. Cesar Palencia , DO Emergency Provider Active Dr. Elayne Baker MD Admit Provider, Attending Provid er Active Team Status: Active Member Role Status Dates Dr. Ruel Peoples MD Primary Care Provider Activ e Dr. Cesar Palencia , DO Emergency Provider Active Dr. Elayne Baker MD Admit Provider, Other Provider A ctive Dr. Viry Boyce MD Attending Provider, Other Prov ider Active Team Status: Active Member Role Status Dates Dr. Ruel Peoples MD Primary Care Provider Activ e Dr. Gus Blue MD Attending Provider Active Dr. Elayne Baker MD Referring Provider Active Team Status: Inactive Member Role Status Dates Dr. Ruel Peoples MD Primary Care Provider Activ e Dr. Cesar Palencia , DO Emergency Provider Active Dr. Elayne Baker MD Admit Provider, Other Provider A ctive Dr. Viry Boyce MD Attending Provider Active Team Status: Active Member Role Status Dates Dr. Davion Peoples MD Family Provider Active Dr. Davion Peoples MD Primary Care Provider Acti ve Team Status: Active Member Role Status Dates Dr. Davion Peoples MD Primary Care Provider Acti ve Dr. Cesar Palencia , DO Emergency Provider Active Dr. Elayen Baker MD Admit Provider, Other Provider A ctive Dr. Viry Boyce MD Attending Provider, Other Prov ider Active Team Status: Active Member Role Status Dates Dr. Davion Peoples MD Primary Care Provider Acti ve Dr. Gus Blue MD Attending Provider Active Dr. Elayne Baker MD Referring Provider Active Team Status: Inactive Member Role Status Dates Dr. Davion Peoples MD Primary Care Provider, Ref erring Provider Active Dr. Steven Joyce DO Attending Provider Active Team Status: Inactive Member Role Status Dates Dr. Davion Peoples MD Primary Care Provider Acti ve Dr. Gus Blue MD Attending Provider Active Team Status: Inactive Member Role Status Dates Dr. Davion Peoples MD Primary Care Provider Acti ve Kiera Bose BARREL LEVELER, BARREL LEVELER-C Attending Provider Active Team Status: Inactive Member Role Status Dates Dr. Davion Peoples MD Primary Care Provider Acti ve Dr. Michell Silvestre MD Attending Provider Active Team Status: Inactive Member Role Status Dates Dr. Davion Peoples MD Primary Care Provider Acti ve Dr. Cesar Palencia DO Emergency Provider Active Dr. Elayne Baker MD Admit Provider, Other Provider A ctive Dr. Viry Boyce MD Attending Provider Active Team Status: Active Member Role Status Dates Dr. Davion Peoples MD Primary Care Provider Acti ve Michell SOLIS MD Attending Provider Active Team Status: Inactive Member Role Status Dates Dr. Davion Peoples MD Primary Care Provider Acti ve Dr. Andrew Rodriguez DO Attending Provider, Referrin g Provider Active Clinical Laboratory Technician Relationship Specialty Start Date End Date Davion Peoples MD [address] [place], [place] [id number] PCP - General Family Medicine 05/09/12 Davion Peoples MD [address] [place], [place] [address] Family Medicine 05/09/12 Clinical Laboratory Technician Relationship Specialty Start Date End Date Davion Peoples MD [address] [place], [place] [id number] PCP - General Family Medicine 05/09/12 Davion Peoplse MD [address] [id number] Family Medicine 05/09/12 Clinical Laboratory Technician Relationship Specialty Start Date End Date Davion Peoples MD [address] [place] [address] PCP - General Family Medicine 05/09/12 Davion Peoples MD [address] [place] [address] Family Medicine 05/09/12 Clinical Laboratory Technician Relationship Specialty Start Date End Date Davion Peoples MD [address] [place] [address] PCP - General Family Medicine 05/09/12 Davion Peoples MD [address] [place] [address] Family Medicine 05/09/12 Clinical Laboratory Technician Relationship Specialty Start Date End Date Davion Peoples MD [address] [place] [address] PCP - General Family Medicine 05/09/12 Davion Peoples MD [address] [place] [address] Family Medicine 05/09/12 Clinical Laboratory Technician Relationship Specialty Start Date End Date Davion Peoples MD [address] [place] [address] PCP - General Family Medicine 05/09/12 Davion Peoples MD [address] [place] [address] Family Medicine 05/09/12 Team Status: Active Member Role Status Dates Dr. Davion Peoples MD Primary Care Provider Acti ve Team Status: Inactive Member Role Status Dates Dr. Davion Peoples MD Primary Care Provider Acti ve Start: October 09, 2024 End: October 09, 2024 Dr. Davion Peoples MD Attending Provider Active Start: October 09, 2024 End: October 09, 2024 Dr. Davion Peoples MD Referring Provider Active Start: October 09, 2024 End: October 09, 2024 Team Status: Inactive Member Role Status Dates Dr. Davion Peoples MD Primary Care Provider Acti ve Start: November 08, 2024 End: November 08, 2024 Dr. Davion Peoples MD Referring Provider Active Start: November 08, 2024 End: November 08, 2024 Kacey ALBERT, PA Attending Provider Active Start: November 08, 2024 End: November 08, 2024 Team Status: Inactive Member Role Status Dates Dr. Davion Peoples MD Primary Care Provider Acti ve Start: November 26, 2024 End: November 28, 2024 Dr. Andrew Rodriguez DO Admit Provider Active Start: November 26, 2024 End: November 28, 2024 Dr. Andrew Rodriguez DO Attending Provider Active Start: November 26, 2024 End: November 28, 2024 Dr. Andrew Rodriguez DO Referring Provider Active Start: November 26, 2024 End: November 28, 2024 Dr. Andrew Fox MD Other Provider Active Start: November 26, 2024 End: November 28, 2024 Dr. Danyelle Perez DO Other Provider Active Start : November 26, 2024 End: November 28, 2024 Team Status: Active Member Role Status Dates Dr. Davion Peoples MD Primary Care Provider Acti ve Start: November 26, 2024 Dr. Andrew Rodriguez DO Admit Provider Active Start: November 26, 2024 Dr. Andrew Rodriguez DO Referring Provider Active Start: November 26, 2024 Dr. Andrew Rodriguez DO Other Provider Active Start: November 26, 2024 Dr. Andrew Fox MD Attending Provider Active Start: November 26, 2024 Dr. Andrew Fox MD Other Provider Active Start: November 26, 2024 Team Status: Active Member Role Status Dates Dr. Davion Peoples MD Primary Care Provider Acti ve Start: November 27, 2024 Dr. Andrew Rodriguez , Admit Provider Active Start: November 27, 2024 Dr. Andrew Rodriguez DO Referring Provider Active Start: November 27, 2024 Dr. Andrew Rodriguez DO Other Provider Active Start: November 27, 2024 Dr. Andrew Fox MD Other Provider Active Start: November 27, 2024 Dr. Danyelle Perez DO Attending Provider Active S tart: November 27, 2024 Dr. Danyelle Perez , Other Provider Active Start : November 27, 2024 Clinical Laboratory Technician Relationship Specialty Start Date End Date Davion Peoples MD [address] [place] [address] PCP - General Family Medicine 05/09/12 Davion Peoples MD [address] [place] [address] Family Medicine 05/09/12 Clinical Laboratory Technician Relationship Specialty Start Date End Date Davion Peoples MD [address] [place] [address] PCP - General Family Medicine 05/09/12 Davion Peoples MD [address] [place] [address] Family Medicine 05/09/12 Clinical Laboratory Technician Relationship Specialty Start Date End Date Davion Peoples MD [address] [place] [address] PCP - General Family Medicine 05/09/12 Davion Peoples MD [address] [place] [address] Family Medicine 05/09/12 Clinical Laboratory Technician Relationship Specialty Start Date End Date Davion Peoples MD [address] [place], [place] [address] PCP - General Family Medicine 05/09/12 Davion Peoples MD [address] [place] [address] Family Medicine 05/09/12 Clinical Laboratory Technician Relationship Specialty Start Date End Date Davion Peoples MD [address] [place], [place] [address] PCP - General Family Medicine 05/09/12 Davion Peoples MD [address] [place], [place] [address] Family Medicine 05/09/12 Team Status: Active Member Role/Relationship Status Dates Dr. Davion Peoples MD Primary Care Provider Acti ve Team Status: Inactive Member Role/Relationship Status Dates Dr. Davion Peoples MD Primary Care Provider Acti ve Start: November 26, 2024 End: November 28, 2024 Dr. Andrew Rodriguez DO Admit Provider Active Start: November 26, 2024 End: November 28, 2024 Dr. Andrew Rodriguez DO Attending Provider Active Start: November 26, 2024 End: November 28, 2024 Dr. Andrew Rodriguez DO Referring Provider Active Start: November 26, 2024 End: November 28, 2024 Dr. Andrew Fox MD Other Provider Active Start: November 26, 2024 End: November 28, 2024 Dr. Danyelle Perez DO Other Provider Active Start : November 26, 2024 End: November 28, 2024 Team Status: Active Member Role/Relationship Status Dates Dr. Davion Peoples MD Primary Care Provider Acti ve Start: November 26, 2024 Dr. Andrew Rodriguez DO Admit Provider Active Start: November 26, 2024 Dr. Andrew Rodriguez DO Referring Provider Active Start: November 26, 2024 Dr. Andrew Rodriguez DO Other Provider Active Start: November 26, 2024 Dr. Andrew Fox MD Attending Provider Active Start: November 26, 2024 Dr. Andrew oFx MD Other Provider Active Start: November 26, 2024 Team Status: Active Member Role/Relationship Status Dates Dr. Davion Peoples MD Primary Care Provider Acti ve Start: November 27, 2024 Dr. Andrew Rodriguez DO Admit Provider Active Start: November 27, 2024 Dr. Andrew Rodriguez DO Referring Provider Active Start: November 27, 2024 Dr. Andrew Rodriguez DO Other Provider Active Start: November 27, 2024 Dr. Andrew Fox MD Other Provider Active Start: November 27, 2024 Dr. Danyelle Perez DO Attending Provider Active S tart: November 27, 2024 Dr. Danyelle Perez DO Other Provider Active Start : November 27, 2024 Team Status: Inactive Member Role/Relationship Status Dates Dr. Davion Peoples MD Primary Care Provider Acti ve Start: March 25, 2025 End: March 25, 2025 Dr. Davion Peoples MD Referring Provider Active Start: March 25, 2025 End: March 25, 2025 Subha ALBERT, PA Attending Provider Active Start: March 25, 2025 End: March 25, 2025 Clinical Laboratory Technician Relationship Specialty Start Date End Date Davion Peoples MD [address] [place] [id number] PCP - General Family Medicine 05/09/12 Davion Peoples MD [address] [place] [address] Family Medicine 9/18/12 Goals (unrecognized section and content) Goals may be documented in a n alternate sectionGoals may be documented in an alternate sectionGoals may be documented in an alternate sectionGoals may be documented in an alternate sectionGoals may be documented in an alternate sectionGoals may be documented in an alternate sectionGoals may be documented in an alternate sectionGoals may be documented in an alternate sectionGoals may be documented in an alternate sectionGoals may be documented in an alternate sectionGoals may be documented in an alternate sectionGoals may be documented in an alternate sectionGoals may be documented in an alternate sectionGoals may be documented in an alternate sectionGoals may be documented in an alternate sectionGoals may be documented in an alternate sectionGoals may be documented in an alternate sectionGoals may be documented in an alternate sectionGoals may be documented in an alternate sectionGoals may be documented in an alternate sectionGoals may be documented in an alternate sectionGoals may be documented in an alternate section FOR RECORDS PERTAINING TO PATIENTS WHO ARE [...] BE BASED ON THE PRIMARY CLINICAL RECORDS. [employer] [facility]. provides no warranty or guarantee of the accuracy or completeness of information in this document.
[2025-05-01 04:42] VITALS: PULSE 75; RESP 15; O2SAT 97
[2025-05-01 05:11] VITALS: BP 154/86; PULSE 75; RESP 14; TEMP 36.7; O2SAT 98
== END 2025-05-01 07:02 | disposition home or self-care (01) ==
PROVIDERS: Emergency Provider Emergency Medicine; PCP Family Medicine; Visit Provider Emergency Medicine
DX: H81.10 Benign paroxysmal vertigo, unspecified ear (principal); E11.65 Type 2 diabetes mellitus with hyperglycemia; N28.9 Disorder of kidney and ureter, unspecified; R53.1 Weakness; I10 Essential (primary) hypertension; E78.00 Pure hypercholesterolemia, unspecified; J45.909 Unspecified asthma, uncomplicated; Z79.51 Long term (current) use of inhaled steroids; Z79.84 Long term (current) use of oral hypoglycemic drugs; Z79.899 Other long term (current) drug therapy; G47.30 Sleep apnea, unspecified; Z99.89 Dependence on other enabling machines and devices; F32.A Depression, unspecified; Z79.82 Long term (current) use of aspirin; Z79.85 Long-term (current) use of injectable non-insulin antidiabetic drugs; F41.9 Anxiety disorder, unspecified; Z96.611 Presence of right artificial shoulder joint; Z95.5 Presence of coronary angioplasty implant and graft; R39.2 Extrarenal uremia; I25.10 Atherosclerotic heart disease of native coronary artery without angina pectoris
CPT/HCPCS: 80048; 81001; 85025; 96360; 99285; P9612; A4216

== ENCOUNTER → 2025-05-29 | Outpatient (CLI) | payer MEDICARE, OTHER, SELFPAY | END | disposition home or self-care (01) | LOC: MTRAD 15:18 | PROVIDERS: PCP Family Medicine; Referring Provider Family Medicine; Visit Provider Family Medicine | DX: R07.81 Pleurodynia (principal); R10.20 Pelvic and perineal pain unspecified side | CPT/HCPCS: 71100; 72170 ==

== ENCOUNTER 2025-07-30 13:00 | Outpatient (RCR) | payer MEDICARE, OTHER, SELFPAY ==
--- NOTE | 2025-06-13 14:31 | HP.PTEVAL ---
Patient's Visit Information Visit Information Visit Information: REE WYLIE is a 74 year old F referred to Physical Therapy by Dr. Perry Peoples MD with a diagnosis of Imbalance and need for AD. Date of Evaluation: 06/12/25 Physical Therapist: Boyd Gold DPT Visit Plan Frequency: 2x /Week Duration: 4 Weeks Plan: Dynamic balance training, SLS balance. Gait with rollator BLE strengthening, functional strengthening Pt. is to get another script from physician for rollator in order to see in insurance would assist with reimbursement. Subjective Subjective: Pt. is here today for her initial evaluation with diagnosis of frequent falls and need for an assistive device. Pt. 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 She reports being in a coma for 5-7 days without food water. 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 Pt. reports having an issues with her L eye as well which has caused an infection in. She reports she is going to be hospitalized tomorrow for antibiotics for her eye. Pt. reports having 6 falls in the last 3 months, having 1 last night. Mostly in the home. She does not use a device in home. She had used a cane at one point in time. She does have a standard walker as well. Pt. is hopeful to improve her balance in order to reduce her risk for falls. She does have a service dog that is to help her with getting up with falling and to assist if she become unconscious. She reports being diabetic, but reports being not fully diabetic. Objective Objective: POSTURE: Pt. has general flexed posture. PALPATION: Pt. is missing several toes removed and general skin issues on her feet. NEURO: Pt. has slight reduced sensation in BLEs. Pt. has normal DTR of BLEs. ROM: Pt. has normal ankle and knee ROM, but slight stiffness throughout lumbar spine especially into extension and SBing. MMT: LLE: knee: ext 24.2#, flexion 29.3#; hip: flex 22.2# RLE: knee: ext 31.1#, flexion 21.2#; hip: flex 25.2# GAIT: Pt. ambulates with decreased step length and increased postural sway. She did have slight loss of balance to the L with PT assistance to correct. Pt. did walk much better with use of rollator. Balance/Special Test Scores Functional Gait Assessment Score: 7 % Disability: 76.6700 Lower Extremity Functional Score: 21 TUG Test Time Seconds: 16.9 30 Second Chair Rise Test Seconds: 8 Goals Goal 1:: LTG: Pt. to have increased BLE strength by 10# throughout. Goal Time Frame: 4-6 Weeks Goal 2:: LTG: Pt. to complete TUG with time less than 10 sec indicating increased stability with functional mobility. Goal Time Frame: 4-6 Weeks Goal 3:: LTG: Pt. to complete FGA with score of 20/30 indicating reduced risk for future falls. Goal Time Frame: 4-6 Weeks Goal 4:: LTG: pt. to complete 30sec sit to stand test with atleast 15 reps. Goal Time Frame: 4-6 Weeks Goal 5:: LTG: Pt. to reports no falls over 2 week period. Goal Time Frame: 4-6 Weeks Goal 6:: LTG: Pt. ambulate with normal gait pattern with use of rollator. Goal Time Frame: 4-6 Weeks Rehabilitation Potential Physical Therapy Diagnosis: Pt. has signs and symptoms consistent with imbalance and need for AD due to frequent falls. Pt. has marked imbalance, weakness and difficulty with functional mobility. She has marked multiple co morbidities effecting her imbalance including weakness, missing toes, back pain. Pt. would benefit from PT to address the above limitations. Rehabilitation Potential: Good Anticipated Interventions Patient/Client Instruction: Educate patient on: Condition, Plan of Care, Risk Factors and Benefits of Fitness Program For the Purpose of:: To improve decision making, To facilitate caregiver knowledge, To improve self management, To prevent re-injury and To improve ability to perform tasks related to life management Therapeutic Exercise to Include: Strength training, Power training, Endurance training, Balance training, Body mechanics, Postural training, Flexibilty training, Gait and locomotor training and Neuromotor development For the Purpose of:: To decrease pain, To increase ROM, To improve nutrient delivery to tissue, To increase oxygenation perfusion, To improve muscle performance and motor function, To improve ability to perform ADL's, To increase tolerance to activity/condition/position, To improve performance and independence with ADL's and To decrease level of supervision to perform tasks Text: Thank you for the opportunity to evaluate your patient. For Medicare and Medicare HMO plans, please review the plan of care and approve it. It will need to be FAXED BACK to us at [phone] for Medicare purposes. For Medicare only, by signing this I certify the plan of care. Please let me know if there are questions or concerns regarding this plan of care. Physician Signature: Date:
--- NOTE | 2025-07-15 11:02 | HP.PTREVAL_ITS ---
Re-Evaluation Intro: Dr. Perry Peoples MD, It has been my pleasure to treat REE WYLIE over the last 3 visits for Imbalance and need for AD. Please see the progress note below for an update on the physical therapy plan of care! Subjective Subjective: Pt. is here today for her reassessment. Pt. has not been able to be here much due to feeling ill. Pt. had episodes of vertigo and resulted into hallucinations. Pt. is doing better now. Pt. arrived today using [facility]. Pt. reports falling this weekend, pt. tripped over her shoe. Pt. has left a message at [employer] about a rollator. She has not heard back yet. Objective Objective/Function: MMT: R knee: ext 30.4#, flex 27.1#, ankle 5/5 throughout LLE: knee: ext 27.5#, flex 23.3#, ankle 5/5 throughout Overall gabby is about the same as she was at her initial evaluation, but she was only able to attend for 1 visit after her eval due to being sick. I would like her to continue with PT along with being more consistent in order to improve her strength and balance. Plan Plan Plan: I am re certing her x2 per week for 4 weeks. She was not able to attend often prior do to illness. Work on the activities below to progress strength and balance. Dynamic balance training, SLS balance. Gait with rollator BLE strengthening, functional strengthening Balance/Gait/Functional tests Balance/Special Test Scores Functional Gait Assessment Score: 7 % Disability: 76.6700 Lower Extremity Functional Score: 21 TUG Test Time Seconds: 18.9 Tug Test: <20 sec.=mostly independent 30 Second Chair Rise Test Seconds: 9 Goals Goals Goal 1:: LTG: Pt. to have increased BLE strength by 10# throughout. Goal Time Frame: 4-6 Weeks Goal Progress: Progressing Goal 2:: LTG: Pt. to complete TUG with time less than 10 sec indicating increased stability with functional mobility. Goal Time Frame: 4-6 Weeks Goal Progress: Not Progressing Goal 3:: LTG: Pt. to complete FGA with score of 20/30 indicating reduced risk for future falls. Goal Time Frame: 4-6 Weeks Goal Progress: Not Progressing Goal 4:: LTG: pt. to complete 30sec sit to stand test with atleast 15 reps. Goal Time Frame: 4-6 Weeks Goal Progress: Progressing Goal 5:: LTG: Pt. to reports no falls over 2 week period. Goal Time Frame: 4-6 Weeks Goal Progress: Not Progressing Goal 6:: LTG: Pt. ambulate with normal gait pattern with use of rollator. Goal Time Frame: 4-6 Weeks Goal Progress: Progressing Anticipated Interventions Anticipated Interventions Patient/Client Instruction: Educate patient on: Condition, Plan of Care, Risk Factors and Benefits of Fitness Program For the Purpose of:: To improve decision making, To facilitate caregiver knowledge, To improve self management, To prevent re-injury and To improve ability to perform tasks related to life management Therapeutic Exercise to Include: Strength training, Power training, Endurance training, Balance training, Body mechanics, Postural training, Flexibilty training, Gait and locomotor training and Neuromotor development For the Purpose of:: To decrease pain, To increase ROM, To improve nutrient delivery to tissue, To increase oxygenation perfusion, To improve muscle performance and motor function, To improve ability to perform ADL's, To increase tolerance to activity/condition/position, To improve performance and independence with ADL's and To decrease level of supervision to perform tasks Re-Evaluation Ending Re-evaluation ending: Please do not hesitate to contact me at [phone] by phone or if you have questions or concerns regarding this new plan of care! Sincerely, Boyd Gold DPT
== END 2025-07-30 19:00 | disposition home or self-care (01) ==
LOC: PT 13:00
PROVIDERS: PCP Family Medicine; Referring Provider Family Medicine; Visit Provider Family Medicine
DX: R29.6 Repeated falls (principal); Z91.81 History of falling
CPT/HCPCS: 97110; 97161; 97530